=== PATIENT | female | born 1935 | race Caucasian/White ===

== ENCOUNTER 2017-08-16 19:25 | Inpatient (IN) | payer MEDICARE ==
[2017-08-16] MEDS ORDERED: Albuterol Sulfate 2.5 mg/3 ml Neb ONE ×2 (20:02→21:02)
[2017-08-16 20:31] LABS: #Eosinphils 0.1 thou/uL (0.0-0.7); #Lymphocytes 0.7 thou/uL (1.20-3.40); #Monocytes 0.6 thou/uL (0.11-0.59); #Neutrophils 4.4 thou/uL (1.40-6.50); %Basophils 0.4 % (0.0-1.0); %Eosinophils 2.5 % (0.0-10.0); %Lymphocytes 11.3 % (21.0-51.0); %Monocytes 9.7 % (0.0-10.0); Hematocrit 40.2 % (36.0-47.0); Mean Platelet Volume 7.9 fL (7.4-10.4); Red Blood Cell (RBC) Count 4.11 mill/uL (4.20-5.40); White Blood Cell (WBC) Count 5.8 thou/uL (4.8-10.8)
[2017-08-16] MEDS ORDERED: Water For Inject, Bacteriostat 30 ML ONE (20:34)
[2017-08-16] MEDS ORDERED: methylPREDNISolone Sod Succ/PF 125 MG/2 ML VIAL ONE (20:34)
--- NOTE | 2017-08-16 20:36 | RAD ---
CHEST ONE VIEW PORTABLE: 08/16/17 HISTORY: 81-year-old female with cough and shortness of breath. COMPARISON: 12/01/16 FINDINGS: There is considerable rotation to the left. There is marked cardiomegaly with some bilateral vascula r congestion and probable small pleural effusions evidence for minimal congestive heart failure. Lar ge body habitus lowers the sensitivity of this study, particularly in the retrocardiac region. IMPRESSION: Cardiomegaly with vascular congestion and probable small pleural effusions, evidence for congestive heart failure. Treatment and short term followup for clearing or stability is suggested. POS: [facility]
[2017-08-16 20:44] LABS: PTT 37.4 SEC (22.9-36.1); Prothrombin Time 27.5 SEC (12.0-14.7)
[2017-08-16 20:52] LABS: ALT (SGPT) 10 U/L (8-55); AST (SGOT) 16 U/L (5-34); Alkaline Phosphatase 91 U/L (40-150); Anion Gap 15 mmol/L (10-20); BUN (Urea Nitrogen) 49 mg/dL (9.8-20.1); Bilirubin, Total 0.5 mg/dL (0.2-1.2); CK (CPK) 60 U/L (29-168); Calc. Creatinine Clearance 0 mL/min (70-130); Calcium 9.8 mg/dL (7.8-10.44); Carbon Dioxide 30 mmol/L (23-31); Chloride 98 mmol/L (98-107); Estimated GFR-MDRD 25; Globulin 3.2 g/dL (2.4-3.5); Protein, Total 6.5 g/dL (6.0-8.3)
[2017-08-16 20:56] LABS: Troponin I Less than 0.010 ng/mL (< 0.028)
[2017-08-16] MEDS ORDERED: Furosemide 40 MG/4 ML VIAL ONE (21:25)
[2017-08-16] MEDS ORDERED: Furosemide 20 MG/2 ML VIAL ONE (21:25)
--- NOTE | 2017-08-16 21:25 | PDOC.EVN ---
Event Note - Event Note Event Note: [id number] h&p dictated 1. Acute CHF exacerbation 2. H/O DVT 3. HTN 4. CKD stage 304 5. Chronic respiraoty failure + H/O FAUSTINO Plan: see orders
[2017-08-16 21:38] LABS: Bilirubin Negative (Negative); Blood, Urine Small (Negative); Glucose, Urine (Dipstick) Negative (Negative); Ketone, Urine Negative (Negative); Nitrite Positive (Negative); Protein, Urine (Dipstick) 100 mg/dL (Neg-Trace); Urobilinogen 0.2 mg/dL (0.2-1.0)
[2017-08-16 21:40] LABS: Bacteria/HPF 4+ HPF (None Seen); Squamous Epithelial 0-3 HPF (0-3)
[2017-08-16 21:41] LABS: Hyaline Casts/LPF 4-6 HYALINE CAST LPF (0-3 Hyaline)
[2017-08-16 21:55] LABS: Mode BIPAP; Modified Allen's Test POSITIVE; Pressure Support 10 cmH2O; Sodium 137 mmol/L (135-148); Vent NO
[2017-08-16] MEDS ORDERED: Acetaminophen 500 MG TAB ONE (22:06)
[2017-08-16] MEDS ORDERED: traMADol HCl 50 MG TAB ONE (22:06)
[2017-08-16] MEDS ORDERED: Acetaminophen 325 MG TAB ONE (22:09)
[2017-08-16] MEDS ORDERED: HYDROcodone/Acetaminophen 7.5/325 mg Tablet PO PRN (22:11)
[2017-08-16] MEDS ORDERED: Oxybutynin 5 MG TAB PO PRN (22:11)
[2017-08-16 23:46] LABS: Troponin I 0.027 ng/mL (< 0.028)
[2017-08-17] MEDS: Furosemide 100 MG in Sodium Chloride 0.9% 90 ML IVPB SCH ×2 (00:15→11:03)
[2017-08-17 05:13] LABS: #Lymphocytes 0.4 thou/uL (1.20-3.40); #Monocytes 0.1 thou/uL (0.11-0.59); #Neutrophils 4.6 thou/uL (1.40-6.50); %Eosinophils 0.6 % (0.0-10.0); %Monocytes 1.2 % (0.0-10.0); Hematocrit 39.4 % (36.0-47.0); Mean Platelet Volume 7.9 fL (7.4-10.4); Red Blood Cell (RBC) Count 4.03 mill/uL (4.20-5.40); White Blood Cell (WBC) Count 5.1 thou/uL (4.8-10.8)
[2017-08-17 05:23] LABS: Anion Gap 14 mmol/L (10-20); BUN (Urea Nitrogen) 47 mg/dL (9.8-20.1); Calc. Creatinine Clearance 58 mL/min (70-130); Calcium 9.9 mg/dL (7.8-10.44); Carbon Dioxide 28 mmol/L (23-31); Chloride 99 mmol/L (98-107); Estimated GFR-MDRD 26
[2017-08-17 05:28] LABS: Troponin I 0.013 ng/mL (< 0.028)
--- NOTE | 2017-08-17 06:44 | HP ---
CHIEF COMPLAINT: Diffuse lower extremity swelling and abdominal swelling and dyspnea. HISTORY OF PRESENT ILLNESS: Patient is an 81-year-old female with past medical history of hypertens ion, congestive heart failure, deep venous thrombosis, chronic kidney disease stage 3-4, urinary tra ct infections and history of non-Hodgkin lymphoma, came to the hospital because of bilateral lower e xtremity swelling and lower abdominal swelling and dyspnea. [facility] for past one month. The patient started gaining more weight in the last one month, gained approximately 20 pounds. The patient started having more lower extremity swelling. Patient always has has chronic lymphedema in the lower extremity, but the swelling more pronounced and increased up to the lower abdominal wall. Also, patient was having dyspnea on lying flat. Denies any chest pio n, denies any palpations. Complains of wheezing. Denies any cough, denies sputum production, denie s nausea, denies vomiting, denies any diarrhea. PAST MEDICAL HISTORY: As per HPI. PAST SURGICAL HISTORY: Cataract surgery, cholecystectomy and knee surgery. ALLERGIES: PENICILLIN. MEDICATIONS: Reviewed. FAMILY HISTORY: Denies any heart problems. SOCIAL HISTORY: Denies smoking, denies alcohol, denies any drugs. REVIEW OF SYSTEMS: Constitutional: Denies any fever, denies any chills. Eyes: Denies any vision problems. Ears: Denies any hearing loss. Neck: Denies any neck pain. Cardiovascular System: De nies any chest pain, denies palpitations. Respiratory System: Positive for dyspnea. Gastrointesti nal: Positive for lower abdominal wall edema, positive for lower extremity edema. Cranial Nervous System: Denies syncope. Psychiatric: Denies depression or anxiety. Integumentary: Denies any ra sh. Musculoskeletal: Positive for bilateral lower extremity edema. All other review of systems ar e reviewed and are negative. PHYSICAL EXAMINATION: CONSTITUTIONAL/VITAL SIGNS: At the time of H\T\P performed, blood pressure is 130/70, afebrile, res piratory rate 18 and pulse ox 96% on 2 liters. GENERAL: The patient appears tired. HEENT: Anterior nares patent. Nose normal. Ears normal. Teeth intact. Tongue is moist. NECK: Supple. No JVD. CARDIOVASCULAR SYSTEM: S1 and S2 present. Regular rate and rhythm. No wheeze, no murmurs, no rubs , no gallops. RESPIRATORY SYSTEM: Positive for wheezing. Positive for rales. Positive for crackles. Diminished at the bases. GASTROINTESTINAL: Abdomen is soft and distended. Positive for lower abdominal wall edema. MUSCULOSKELETAL: Bilateral lower extremities, 3+ pitting edema present. INTEGUMENTARY: Chronic skin changes seen. PSYCH: Mood is appropriate at this time. CRANIAL NERVOUS SYSTEM: Cranial nerve is intact. Follows command. Strength is intact and sensory is intact. LABORATORY DATA: At the time of H\T\P performed, white count 5.8, hemoglobin 12.3 and platelet coun t is 268. PT 27.5, INR 2.5. BMP shows sodium 139, potassium 4.2, chloride 98, CO2 of 30, BUN 14, c reatinine 1.92. BNP 268 and albumin 3.3. Chest x-ray, positive for pulmonary edema. ASSESSMENT AND PLAN: The patient is an 81-year-old female. 1. Acute on chronic congestive heart failure. Plan to consult Cardiology to evaluate the patient. Plan to check 2D echo. Plan to start the patient on IV Lasix drip. Plan to give 60 mg of IV Lasix at this time and we will follow the patient closely. 2. Chronic kidney disease stage 3-4. Creatinine close to the patient's baseline. We will monitor creatinine closely. We will plan to consult Nephrology to evaluate the patient. 3. History of obstructive sleep apnea plus chronic respiratory failure. Continue oxygen nasal tracy kenneth. Plan to start the patient on home BiPAP settings and we will monitor respiratory status closel y. We will admit patient to the IMU for close monitoring. 4. History of deep venous thrombosis. Continue Coumadin, INR therapeutic. 5. History of hypertension. Monitor blood pressure. Continue home blood pressure medications. The case was discussed in detail with the patient. Patient is FULL CODE.
[2017-08-17] MEDS ORDERED: Potassium Chloride 20 MEQ TAB PO SCH (08:00)
[2017-08-17] MEDS ORDERED: FLUoxetine HCl 20 MG CAP PO SCH (09:00)
[2017-08-17] MEDS: Ferrous Sulfate 325 MG TAB PO SCH ×2 (09:07→16:40)
[2017-08-17] MEDS: Ascorbic Acid 500 mg Chewable Tablet PO SCH (09:07)
[2017-08-17] MEDS: Allopurinol 100 MG TAB PO SCH (09:07)
[2017-08-17] MEDS: Fluticasone Propionate Nasal Spray 16 gm Bottle NASAL SCH (11:03)
--- NOTE | 2017-08-17 11:55 | PDOC.PN ---
- Subjective Encounter Start Date: 08/17/17 Encounter Start Time: 10:40 Subjective: is coming off bipap, breathing better -: no chest pain - Objective MAR Reviewed: Yes Vital Signs & Weight: Vital Signs (12 hours) Temp Pulse Resp BP BP Pulse Ox 08/17/17 11:05 96.9 F L 87 18 135/59 L 98 08/17/17 08:56 97 08/17/17 08:00 96.9 F L 87 18 96 08/17/17 07:09 98.6 F 81 13 107/44 L 100 08/17/17 06:57 82 08/17/17 04:00 97.8 F 81 14 116/50 L 99 08/17/17 02:42 71 08/17/17 00:15 97.2 F L 72 15 109/42 L 100 08/16/17 23:57 73 96 Weight Weight 338 lb 9.6 oz I&O: 08/16/17 08/17/17 08/18/17 06:59 06:59 06:59 Intake Total 215 Output Total 950 Balance -735 Result Diagrams: 08/17/17 04:52 08/17/17 04:52 Phys Exam - Physical Examination HEENT: PERRLA, moist MMs Neck: supple jvd+ Respiratory: no wheezing rales++ Cardiovascular: RRR, no significant murmur Gastrointestinal: soft, positive bowel sounds abd wall edema+++ Musculoskeletal: pulses present, edema present Neurological: non-focal, moves all 4 limbs Psychiatric: A&O x 3 Dx/Plan (1) Volume overload Code(s): E87.70 - FLUID OVERLOAD, UNSPECIFIED Status: Acute (2) Acute exacerbation of CHF (congestive heart failure) Code(s): I50.9 - HEART FAILURE, UNSPECIFIED Status: Acute Qualifiers: Congestive heart failure type: unspecified congestive heart failure type Qualified Code(s): I50.9 - Heart failure, unspecified (3) UTI (urinary tract infection) Status: Acute Qualifiers: Urinary tract infection type: acute cystitis Hematuria presence: without hematuria Qualified Code(s): N30.00 - Acute cystitis without hematuria (4) Anasarca Code(s): R60.1 - GENERALIZED EDEMA Status: Acute (5) Chronic acquired lymphedema Code(s): I89.0 - LYMPHEDEMA, NOT ELSEWHERE CLASSIFIED Status: Chronic (6) Dyslipidemia Code(s): E78.5 - HYPERLIPIDEMIA, UNSPECIFIED Status: Chronic (7) History of deep venous thrombosis or pulmonary embolus Code(s): YRP5891 - Status: Chronic (8) Hypertension Code(s): I10 - ESSENTIAL (PRIMARY) HYPERTENSION Status: Chronic Qualifiers: Hypertension type: essential hypertension (9) Morbid obesity Code(s): E66.01 - MORBID (SEVERE) OBESITY DUE TO EXCESS CALORIES Status: Chronic (10) FAUSTINO (obstructive sleep apnea) Code(s): G47.33 - OBSTRUCTIVE SLEEP APNEA (ADULT) (PEDIATRIC) Status: Chronic (11) Physical deconditioning Code(s): R53.81 - OTHER MALAISE Status: Chronic - Plan is on lasix drip -: renal consultation, PT to mobilize as tolerated -: pt has developed severe anasarca over 4 weeks -: has chronic lymphedema in legs usually and does wrapping -: d/w daughter at bedside, watch for renal function, creatinine around 1.8 * . Review of Systems - Medications/Allergies Allergies/Adverse Reactions: Allergies Allergy/AdvReac Type Severity Reaction Status Date / Time Penicillins Allergy Unknown Verified 12/02/16 01:41 Medications: Current Medications Hydrocodone Bitart/Acetaminophen ([place] 7.5/325) 1 tab PO Q6H PRN PRN Reason: Pain 7-10 Allopurinol (Zyloprim) 100 mg PO DAILY [facility] Last Admin: 08/17/17 09:07 Dose: 100 mg Amlodipine Besylate (Norvasc) 5 mg PO QPM [facility] Ascorbic Acid (Vitamin C) 1,000 mg PO DAILY [facility] Last Admin: 08/17/17 09:07 Dose: 1,000 mg Duloxetine HCl (Cymbalta) 30 mg PO DAILY [facility] Last Admin: 08/17/17 09:07 Dose: 30 mg Ferrous Sulfate (Feosol) 325 mg PO BID-[facility] Last Admin: 08/17/17 09:07 Dose: 325 mg Fluoxetine HCl (Prozac) 60 mg PO DAILY [facility] Last Admin: 08/17/17 09:06 Dose: Not Given Fluticasone Propionate (Flonase Nasal [place]) 0 gm NASAL DAILY [facility] Last Admin: 08/17/17 11:03 Dose: 1 spr Furosemide 100 mg/ Sodium (Chloride) 100 mls @ 5 mls/hr IVPB INF [facility] PRN Reason: 5 MG/HR Last Admin: 08/17/17 11:03 Dose: 100 mls Metaxalone (Skelaxin) 800 mg PO TID PRN PRN Reason: Muscle Spasm Methyldopa (Aldomet) 250 mg PO BID [facility] Last Admin: 08/17/17 09:08 Dose: 250 mg Oxybutynin Chloride (Ditropan) 5 mg PO TID PRN PRN Reason: Bladder Spasms Pantoprazole Sodium (Protonix) 40 mg PO DAILY [facility] Last Admin: 08/17/17 09:07 Dose: 40 mg Potassium Chloride (K-Dur) 20 meq PO QAM-WM [facility] Last Admin: 08/17/17 09:07 Dose: 20 meq Terazosin HCl (Hytrin) 5 mg PO [facility]
[2017-08-17] MEDS: traMADol HCl 50 MG TAB PO PRN ×2 (15:04→21:50)
[2017-08-17] MEDS: Estradiol 0.01% Vaginal Cream 42.5 gm Tube VAG SCH (16:01)
--- NOTE | 2017-08-17 16:08 | CON ---
DATE OF CONSULTATION: 08/17/2017 REASON FOR CONSULTATION: Edema and elevated creatinine. HISTORY OF PRESENTING ILLNESS: This is a very pleasant 81-year-old female who presented to the hosp ital last night for generalized swelling with a 20 pound weight gain. The patient has a history of hydronephrosis and baseline creatinine has around 1.5-1.8. The patient can give no further detailed history. PAST MEDICAL HISTORY: Significant for non-Hodgkin's lymphoma, history of pulmonary embolism, orthos tasis, hypertension, lymphedema, UTI, bilateral cataracts, cholecystectomy, atrophic kidney. SOCIAL HISTORY: No alcohol or drug use. HOME MEDICATIONS: Reviewed. HOSPITAL MEDICATIONS: Reviewed. ALLERGIES: Reviewed. REVIEW OF SYSTEMS: Fifteen-point review of systems was performed and negative except positives note d above. GENERAL: Weakness. HEAD: Headache. NECK: No swelling or lumps. NOSE: No epistaxis or discharge. EYES: No diplopia or pain. RESPIRATORY: Dyspnea. CARDIOVASCULAR: Chest pain. GASTROINTESTINAL: Nausea. /TAKE DOWN INSPECTOR: Hematuria. MUSCULOSKELETAL: No joint pain. NEUROPSYCHIATIC SYSTEMS: No suicidal ideation. No ideation. SKIN: Denies any rash or ulcer. CONSTITUTIONAL: No fever or chills. PHYSICAL EXAMINATION: GENERAL: Patient is awake, alert. VITAL SIGNS: Afebrile, pulse 86, breathing at 16, blood pressure 135/59. GENERAL APPEARANCE AND MENTAL STATUS: Fair. HEAD/NECK: Normocephalic. Atraumatic. EYES: EOMI. No deformity. EARS: Clear. No ulcers. NOSE: Intact. No lesions. MOUTH: Clear. No discharge. THROAT: Clear. No exudate. LUNGS: Clear. No crackles. CARDIAC: S1, S2. No rub. ABDOMEN: Benign. BS+. GENITALIA/RECTUM: Schroeder absent. BACK/EXTREMITIES: 4+ edema and lymphedema. NEUROLOGICAL: Alert and motor intact. SKIN: Rash- Bruise. LYMPHATICS: Edema- Ulcer. LABORATORY DATA: Hemoglobin 11.8, creatinine 1.8. ASSESSMENT AND RECOMMENDATIONS: 1. 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 Continue Lasix. 2. Hypertension, stable. 3. Anemia, stable. 4. Congestive heart failure. Overall, prognosis is extremely poor. 5. Proteinuria. We will measure random urine protein-creatinine ratio. 6. History of hydronephrosis. The patient's CAT scan is pending. I would recommend urology evalua tion.
--- NOTE | 2017-08-17 16:35 | CON ---
DATE OF CONSULTATION: 08/17/2017 SUBJECTIVE: Mr. Trinidad is a pleasant 81-year-old female, who is essentially bedridden in the [facility] environment/correction. She is lifted out of bed in [place] Irma [place] [facility] [place] has a history of diastolic dysfunction, chronic kidney disease. She presented with shortness of breath and was noninvasively ventilated. She has BiPAP at the correction, which she sleeps with. She says she feels better and she fell last night. Her intake and output was negative 615. She has seen Dr. Alejo and Dr. Sebastian here in the past. PAST MEDICAL HISTORY: Remarkable for cholecystectomy, knee surgery, cataract surgery, and chronic o besity. SOCIAL HISTORY: She is nonsmoker, nondrinker. ALLERGIES: She reports PENICILLIN allergy. REVIEW OF SYSTEMS: Otherwise, negative. PHYSICAL EXAMINATION: VITAL SIGNS: She is afebrile, heart rate 87, respiratory rate 18, oximetry is 98 on 2 liters, blood pressure 135/59. HEENT: Pupils are equal. Sclerae is anicteric. NECK: Supple. LUNGS: Clear anteriorly. HEART: Regular rhythm. S1 and S2 are normal. ABDOMEN: Soft and nontender. EXTREMITIES: Without asymmetry. LABORATORY AND X-RAY FINDINGS: Chest radiographs showed pulmonary edema, bilateral effusions. White count 5.1, hemoglobin 11.8, platelets 254,000. Potassium is 4.1, BUN is 47, creatinine 1.85. Blood gas yesterday 7.35, CO2 58, pO2 78. IMPRESSION: Volume overload secondary to combination of diastolic dysfunction, chronic kidney disea se. We will continue with her BiPAP from home to sleep while she is here. Dr. Alejo and Dr. Sebastian will be notified of her admission.
--- NOTE | 2017-08-17 18:05 | CT ---
ABDOMEN AND PELVIC CT SCAN WITHOUT IV CONTRAST: History: 81-year-old female with generalized anasarca and right hydronephrosis and prior hematoma. Comparison: 12-09-16 FINDINGS: There is very markedly severe subcutaneous anasarca changes of the chest, abdomen, and pelvis region s which has developed since the prior study. Bilateral pleural effusions and bibasilar parenchymal changes, worse on the left base, probably rela mario to atelectasis. Cardiomegaly with moderate sized pericardial effusion which measures up to 2.5 c m in thickness posteriorly, slightly larger than on the prior study. The bilateral basilar pleural a nd parenchymal changes have progressed as well from the prior study. Status post cholecystectomy. Th e liver appears unremarkable. There is a small hiatal hernia. Pancreas and spleen appear unremarkabl e. There is a very small residual left kidney. The previously noted left sided hydronephrosis has re solved. There is evidence for right renal hydronephrosis with a dilated right ureter seen proximally , slightly less dilated than on the prior study at which time there was a right ureteral stent in pl jessy. There is some opaque material within the right upper renal collecting system which is fairly de nse, possibly some concentrated contrast. I would favor that over calcifications since there were no renal calculi seen at the time of the prior study. There is some minimal ascites around the liver a nd also in the pelvis. Sigmoid colon diverticulosis without acute diverticulitis. No abscess or jessica opathy or abnormal fluid collection. IMPRESSION: Very large body habitus with very severe diffuse subcutaneous anasarca. Progressive bilateral pleura l and parenchymal changes consistent with pleural effusions and some bilateral atelectasis, worse on the left side. Slightly increasing pericardial effusion. Minimal ascites. Small hiatal hernia. Stat us post cholecystectomy without ductal dilatation. Very small residual left kidney without significa nt hydronephrosis or at least improved from the prior study. Some residual but slightly improved rig ht renal hydronephrosis with some abnormal opacity within the right renal upper collecting system, p resumably some concentrated contrast. Marked chronic changes involving the left hip. Sigmoid colon d iverticulosis without diverticulitis. Exam is limited technically because of large body habitus and some motion. POS: [facility]
--- NOTE | 2017-08-17 19:51 | ULT ---
BILATERAL LOWER EXTREMIT VENOUS DUPLEX ULTRASOUND INCLUDING COLOR AND SPECTRAL DOPPLER IMAGING: History: Diffuse edema and pain. Comparison: 12-09-16 FINDINGS: Exam performed from groin to ankle including visualized greater saphenous, common femoral, superfici al femoral, profunda femoral, popliteal, trifurcation, and posterior tibial vein regions. Exam was s omewhat limited technically because of body habitus as well as considerable patient movement with co mpression and positioning. There was phasic flow with normal compressibility noted at all levels. No intraluminal thrombus. IMPRESSION: No evidence for deep venous thrombosis. POS: [facility]
[2017-08-17] MEDS ORDERED: Terazosin HCl 5 MG CAP PO SCH (21:00)
[2017-08-17] MEDS ORDERED: Amlodipine 5 MG TAB PO SCH (21:00)
[2017-08-17] MEDS: Gabapentin 100 MG CAP PO SCH (21:01)
[2017-08-17] MEDS: Docusate 100 MG CAP PO SCH (21:03)
[2017-08-17] MEDS ORDERED: Acetaminophen 500 MG TAB PO PRN (21:46)
[2017-08-17] MEDS ORDERED: Acetaminophen 500 MG TAB PO SCH (23:00)
[2017-08-18 07:40] LABS: #Lymphocytes 0.9 thou/uL (1.20-3.40); #Monocytes 0.7 thou/uL (0.11-0.59); #Neutrophils 4.8 thou/uL (1.40-6.50); %Basophils 0.7 % (0.0-1.0); %Eosinophils 0.6 % (0.0-10.0); %Lymphocytes 14.2 % (21.0-51.0); %Monocytes 10.7 % (0.0-10.0); Hematocrit 38.3 % (36.0-47.0); Mean Platelet Volume 7.3 fL (7.4-10.4); Red Blood Cell (RBC) Count 3.97 mill/uL (4.20-5.40); White Blood Cell (WBC) Count 6.5 thou/uL (4.8-10.8)
[2017-08-18 08:01] LABS: Anion Gap 11 mmol/L (10-20); BUN (Urea Nitrogen) 51 mg/dL (9.8-20.1); Calc. Creatinine Clearance 60 mL/min (70-130); Calcium 9.5 mg/dL (7.8-10.44); Carbon Dioxide 33 mmol/L (23-31); Chloride 100 mmol/L (98-107); Estimated GFR-MDRD 27
[2017-08-18] MEDS: Ascorbic Acid 500 mg Chewable Tablet PO SCH (09:42)
[2017-08-18] MEDS: Gabapentin 100 MG CAP PO SCH ×2 (09:42→21:38)
[2017-08-18] MEDS: Ferrous Sulfate 325 MG TAB PO SCH (09:42)
[2017-08-18] MEDS: Docusate 100 MG CAP PO SCH ×2 (09:42→21:38)
[2017-08-18] MEDS: Allopurinol 100 MG TAB PO SCH (09:43)
[2017-08-18] MEDS: Fluticasone Propionate Nasal Spray 16 gm Bottle NASAL SCH (09:44)
[2017-08-18] MEDS: Furosemide 100 MG in Sodium Chloride 0.9% 90 ML IVPB SCH (09:50)
[2017-08-18] MEDS: traMADol HCl 50 MG TAB PO PRN ×2 (10:18→21:38)
[2017-08-18] MEDS: Acetaminophen 500 MG TAB PO PRN ×2 (12:25→21:38)
--- NOTE | 2017-08-18 13:38 | PRG ---
DATE OF SERVICE: 08/18/2017 She says she is feeling better. She has no new complaints. PHYSICAL EXAMINATION: VITAL SIGNS: She is afebrile, heart rate 83, blood pressure 149/68, respiratory rate 20, oximetry i s 94 on 2 liters. There are apparently some problems with her CPAP nasal pillows, but her daughter plans to go get so me new nasal pillows today from [facility]. Her intake and output is negative 1635. LUNGS: Clear anteriorly. HEART: Regular rhythm. LABORATORY: White count 6.5, hemoglobin 11.4, platelets 276, Sodium 140, potassium 3.7, chloride 10 0, bicarbonate 32, BUN 51, creatinine 1.79. IMPRESSION: 1. Diastolic dysfunction on top of chronic kidney disease. 2. Deconditioning. She is basically bedridden. 3. Morbid obesity. 4. Sleep apnea on BiPAP. 5. Chronic venous stasis. PLAN: Continue supportive care.
[2017-08-18] MEDS ORDERED: Metolazone 5 MG TAB PO SCH (14:45)
--- NOTE | 2017-08-18 15:06 | PDOC.PN ---
- Subjective Encounter Start Date: 08/18/17 Encounter Start Time: 11:00 Subjective: awake, sob is better -: still has a lot of edema all over - Objective MAR Reviewed: Yes Vital Signs & Weight: Vital Signs (12 hours) Temp Pulse Resp BP BP BP Pulse Ox 08/18/17 11:00 98.8 F 83 20 139/53 L 94 L 08/18/17 09:43 149/68 H 08/18/17 08:00 99.3 F 81 24 H 97 08/18/17 07:15 99.3 F 81 24 H 124/56 L 97 08/18/17 06:48 97 08/18/17 06:47 83 08/18/17 04:11 92 L 08/18/17 04:08 98.6 F 85 16 129/52 L 92 L 08/18/17 04:00 92 L Weight Admit Weight 338 lb 9.6 oz Weight 338 lb 9.6 oz I&O: 08/17/17 08/18/17 08/19/17 06:59 06:59 06:59 Intake Total 1715 240 Output Total 3350 300 Balance -1635 -60 Result Diagrams: 08/18/17 07:32 08/18/17 07:32 Phys Exam - Physical Examination anasarca HEENT: PERRLA, moist MMs Neck: no JVD, supple Respiratory: no wheezing, no rales Cardiovascular: RRR, no significant murmur Gastrointestinal: soft, non-tender, positive bowel sounds Musculoskeletal: pulses present, edema present Neurological: non-focal, moves all 4 limbs Psychiatric: A&O x 3 Dx/Plan (1) Volume overload Code(s): E87.70 - FLUID OVERLOAD, UNSPECIFIED Status: Acute (2) Acute exacerbation of CHF (congestive heart failure) Code(s): I50.9 - HEART FAILURE, UNSPECIFIED Status: Acute Qualifiers: Congestive heart failure type: unspecified congestive heart failure type Qualified Code(s): I50.9 - Heart failure, unspecified (3) UTI (urinary tract infection) Status: Acute Qualifiers: Urinary tract infection type: acute cystitis Hematuria presence: without hematuria Qualified Code(s): N30.00 - Acute cystitis without hematuria (4) Anasarca Code(s): R60.1 - GENERALIZED EDEMA Status: Acute (5) Chronic acquired lymphedema Code(s): I89.0 - LYMPHEDEMA, NOT ELSEWHERE CLASSIFIED Status: Chronic (6) Dyslipidemia Code(s): E78.5 - HYPERLIPIDEMIA, UNSPECIFIED Status: Chronic (7) History of deep venous thrombosis or pulmonary embolus Code(s): [id number] - Status: Chronic (8) Hypertension Code(s): I10 - ESSENTIAL (PRIMARY) HYPERTENSION Status: Chronic Qualifiers: Hypertension type: essential hypertension (9) Morbid obesity Code(s): E66.01 - MORBID (SEVERE) OBESITY DUE TO EXCESS CALORIES Status: Chronic (10) FAUSTINO (obstructive sleep apnea) Code(s): G47.33 - OBSTRUCTIVE SLEEP APNEA (ADULT) (PEDIATRIC) Status: Chronic (11) Physical deconditioning Code(s): R53.81 - OTHER MALAISE Status: Chronic - Plan is on lasix drip -: renal function is holding -: has a lot of edema -: to wear compression device for her LE as before -: d/w daughter at bedside, prognosis guarded * . Review of Systems - Medications/Allergies Allergies/Adverse Reactions: Allergies Allergy/AdvReac Type Severity Reaction Status Date / Time Penicillins Allergy Unknown Verified 12/02/16 01:41 Medications: Current Medications Acetaminophen (Tylenol) 500 mg PO Q6H PRN PRN Reason: Headache/Fever or Pain Last Admin: 08/18/17 12:25 Dose: 500 mg Hydrocodone Bitart/Acetaminophen ([place] 7.5/325) 1 tab PO Q6H PRN PRN Reason: Pain 7-10 Allopurinol (Zyloprim) 100 mg PO DAILY [facility] Last Admin: 08/18/17 09:43 Dose: 100 mg Ascorbic Acid (Vitamin C) 1,000 mg PO DAILY [facility] Last Admin: 08/18/17 09:42 Dose: 1,000 mg Docusate Sodium (Colace) 100 mg PO BID [facility] Last Admin: 08/18/17 09:42 Dose: 100 mg Duloxetine HCl (Cymbalta) 30 mg PO DAILY [facility] Last Admin: 08/18/17 09:43 Dose: 30 mg Estradiol (Estrace 0.01% Vaginal Cream) 1 gm VAG Q2D [facility] Last Admin: 08/17/17 16:01 Dose: 1 gm Fluticasone Propionate (Flonase Nasal [place]) 0 gm NASAL DAILY [facility] Last Admin: 08/18/17 09:44 Dose: 2 spr Gabapentin (Neurontin) 100 mg PO BID [facility] Last Admin: 08/18/17 09:42 Dose: 100 mg Furosemide 100 mg/ Sodium (Chloride) 100 mls @ 5 mls/hr IVPB INF [facility] PRN Reason: 5 MG/HR Last Admin: 08/18/17 09:50 Dose: 100 mls Methyldopa (Aldomet) 250 mg PO BID [facility] Last Admin: 08/18/17 09:43 Dose: 250 mg Metolazone (Zaroxolyn) 5 mg PO NOW [facility] Stop: 08/18/17 16:45 Oxybutynin Chloride (Ditropan) 5 mg PO TID PRN PRN Reason: Bladder Spasms Pantoprazole Sodium (Protonix) 40 mg PO DAILY [facility] Last Admin: 08/18/17 09:42 Dose: 40 mg Sodium Chloride (Flush - Normal Saline) 10 ml IVF Q12HR [facility] Last Admin: 08/18/17 09:43 Dose: Not Given Sodium Chloride (Flush - Normal Saline) 10 ml IVF PRN PRN PRN Reason: Saline Flush Tramadol HCl (Ultram) 50 mg PO TID PRN PRN Reason: Pain Last Admin: 08/18/17 10:18 Dose: 50 mg
[2017-08-18 16:07] LABS: Prothrombin Time 27.6 SEC (12.0-14.7)
[2017-08-18] MEDS: Warfarin Sodium 2.5 MG TAB PO SCH (17:10)
--- NOTE | 2017-08-18 17:19 | CON ---
CARDIOLOGY CONSULTATION NOTE DATE OF CONSULTATION: 08/18/2017 REASON FOR CONSULTATION: Diastolic congestive heart failure and renal insufficiency. HISTORY OF PRESENT ILLNESS: Ms. Trinidad is a very pleasant 81-year-old woman. Patient has a histor y of diastolic congestive heart failure. The patient was admitted to the hospital with intractable edema and worsening shortness of breath. Ms. Trinidad has had severe peripheral edema for quite some time. Her ejection fraction on the echoc ardiogram has been normal. She also has some lymphedema recently; however, the weight has been dram atically increasing and she was sent here to the hospital after she is short of breath and wheezing. The patient otherwise has been very immobile. She is unable to really get up or walk around much. She is able to get up in the chair I think that is about the extent of the mobilization. Patient has gained in the last month over 20 pounds. She has no chest pain, but she has severe shortness of breath and wheezing. 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 PAST SURGICAL HISTORY: Cataract surgery and cholecystectomy. ALLERGIES: PENICILLIN. MEDICATIONS: Patient is on amlodipine 10 mg a day. She is on diuretics. She was on [place]. FAMILY HISTORY: Negative for heart disease at a young age. SOCIAL HISTORY: No smoking or alcohol. REVIEW OF SYSTEMS: Constitutional: Positive for weakness. Vision: No changes. Hearing: No lau ges. Pulmonary: Positive for shortness of breath. Cardiac: Positive for shortness of breath. No chest pain. Gastrointestinal: No nausea, vomiting or diarrhea. Skin: No rashes. Neurologic: N o unilateral weakness or numbness. Psychiatric: No unusual depression or anxiety. Extremities: S evere edema in all 4 extremities and really all throughout her body. PHYSICAL EXAMINATION: GENERAL: It is a pleasant morbidly obese 81-year-old woman. VITAL SIGNS: Height 5 feet 4 inches tall. Weighs 338 pounds. BMI is 58. EYES: Sclerae nonicteric. MOUTH: Mucous membranes moist. NECK: Supple. No lymphadenopathy. LUNGS: Positive for expiratory wheezing. CARDIOVASCULAR: Normal S1, normal S2. There is no murmur, rub or gallop. ABDOMEN: Obese and nontender. No hepatosplenomegaly. EXTREMITIES: There is severe edema in all 4 extremities. Extremities are warm. PERTINENT LABORATORY DATA: The creatinine is 1.79, estimated GFR is 27 and potassium is 3.7. BNP i s 1268. Hemoglobin is 11.4. IMAGING DATA: Echocardiogram, technically difficult study due to the morbid obesity, but the ejecti on fraction is normal. She appears to have mild to moderate aortic stenosis, severe left atrial dil atation and mild enlarged right ventricle, moderately elevated pulmonary artery pressure, small to m edium pericardial effusion without tamponade. ASSESSMENT: 1. Diastolic congestive heart failure tremendously volume overloaded. 2. Renal failure stage 3-4. 3. Morbid obesity. 4. The patient has hypertension. I think some of it is related to volume overload. 5. The patient is on Coumadin. We will need to review the indication. I think she had deep venous thrombosis in the past. 6. History of iron deficiency. At this time, her main problem appears to be diastolic heart failur e. PLAN: 1. Stop amlodipine and allow blood pressure to come up. 2. Agree with intravenous furosemide drip. 3. Give one dose of metolazone. 4. Elevate extremities to help mobilize edema. 5. Check iron levels. May need intravenous iron. 6. Need to resume the Coumadin dose. 7. We will follow with you. The patient clearly is severely volume overloaded.
--- NOTE | 2017-08-18 19:29 | PRG ---
DATE OF SERVICE: 08/18/2017 SUBJECTIVE: Patient was seen and examined at bedside and overnight events noted. Patient denies any shortness of breath or chest pain or palpitation. No history of nausea or vomiting or diarrhea or fever or chills or cramps. OBJECTIVE: GENERAL: This is an obese white female, on BiPAP. VITAL SIGNS: Temperature 98.7, pulse 84, respiratory 18, blood pressure 142/59. HEENT: Atraumatic, normocephalic, Oral mucosa is moist. NECK: Supple. CARDIOVASCULAR: S1, S2 heard. Rate and rhythm regular. RESPIRATORY: Crackles present GASTROINTESTINAL: Abdomen is soft. MUSCULOSKELETAL: 1+ edema. DERMATOLOGIC: No skin rash. NEUROLOGIC: Alert and awake and oriented X3. No focal neurologic deficits. Moving all the extremities. PSYCHIATRIC: Mood and affect normal. LABORATORY DATA: Potassium is 3.7. Creatinine is 1.7 from 1.8 yesterday. ASSESSMENT AND PLAN: 1. Acute kidney injury on chronic kidney disease stage IV. Renal function is getting better, close to her baseline, most likely from cardiorenal syndrome. Creatinine is getting better with the Lasix. Continue on Lasix and we will closely monitor for electrolytes and renal function. 2. Hypertension. Blood pressure seems to be stable. 3. Anemia. Monitor hemoglobin. 4. Cardiorenal syndrome. 5. Proteinuria. 6. Follow up with Cardiology. Continue current medication, currently on Lasix drip, closely monitor urine output. Follow up with Cardiology for optimization of cardiac medications. Plan discussed with the patient and daughter at the bedside. ANA
[2017-08-19 04:50] LABS: Anion Gap 12 mmol/L (10-20); BUN (Urea Nitrogen) 52 mg/dL (9.8-20.1); Calc. Creatinine Clearance 59 mL/min (70-130); Calcium 9.7 mg/dL (7.8-10.44); Carbon Dioxide 35 mmol/L (23-31); Chloride 99 mmol/L (98-107); Estimated GFR-MDRD 27; Iron 25 ug/dL (50-170)
[2017-08-19] MEDS: Furosemide 100 MG in Sodium Chloride 0.9% 90 ML IVPB SCH (06:21)
[2017-08-19] MEDS: Allopurinol 100 MG TAB PO SCH (08:56)
[2017-08-19] MEDS: Ascorbic Acid 500 mg Chewable Tablet PO SCH (08:56)
[2017-08-19] MEDS: Docusate 100 MG CAP PO SCH ×2 (08:57→22:06)
[2017-08-19] MEDS: Gabapentin 100 MG CAP PO SCH ×2 (08:57→22:06)
[2017-08-19] MEDS: Fluticasone Propionate Nasal Spray 16 gm Bottle NASAL SCH (08:58)
[2017-08-19] MEDS: Acetaminophen 500 MG TAB PO PRN ×3 (09:00→22:54)
[2017-08-19] MEDS: traMADol HCl 50 MG TAB PO PRN ×3 (09:01→22:53)
--- NOTE | 2017-08-19 09:28 | PRG ---
DATE OF SERVICE: 08/19/2017 SUBJECTIVE: Ms. Trinidad is doing quite well. She did diurese well, she put out 4.6 liters yesterda y, she is -3.4 liters. She is down 5 liters since she came in. She is breathing somewhat better. PHYSICAL EXAMINATION: VITAL SIGNS: Blood pressure 139/65, pulse 86 regular. LUNGS: Clear. CARDIAC: Normal S1, S2. EXTREMITIES: She still has severe edema. ASSESSMENT: 1. Diastolic congestive heart failure, improving. 2. Renal failure is stable. Renal function has not worsened despite diuresis, creatinine is 1.82. PLAN: 1. Add another dose of Zaroxolyn tonight at 6. 2. Continue furosemide. 3. Needs to get additional potassium. 4. Hold all blood pressure medicines to allow good blood pressure and to perfuse the kidneys while she is being diuresed.
--- NOTE | 2017-08-19 09:41 | PRG ---
Patient Name: MARC KAYE Date of service: 08/19/2017 Subjective: Patient was seen and examined at bedside and overnight events noted. Patient denies any shortness of breath or chest pain or palpitation. No history of nausea or vomiting or diarrhea or fever or chills or cramps. Objective: General: This is a well-built elderly female in no apparent distress, she is feeling much better per her daughter at the bedside. Vital signs: Temperature 98.7, pulse 87, respiratory rate 18, blood pressure 113/65. HEENT: Atraumatic, normocephalic. Oral mucosa is moist. Neck: Supple. Cardiovascular: S1 S2 heard. Rate and rhythm regular. Respiratory: Clear to auscultation. Gastrointestinal: Abdomen is soft. Musculoskeletal: No tenderness. No edema. Dermatologic: No skin rash. Neurologic: Alert and awake and oriented X3. No focal neurologic deficits. Moving all the extremi ties. Psychiatric: Mood and affect normal. LABORATORY DATA: Potassium is 3.1, BUN 52, creatinine is 1.8. ASSESSMENT AND PLAN: 1. Acute kidney injury on chronic kidney disease stage 4. Renal function is stable, trending up no w, would recommend reducing the diuretic dose. She did have 7 liters negative. I would recommend I V intermittent Lasix 40-80 twice a day. Patient is also on metolazone. Continue close monitoring. Continue potassium and magnesium closely. 2. Hypokalemia secondary to diuretics. Replace and monitor closely. 3. Hypertension, stable. 4. Cardiorenal syndrome. Follow with Cardiology. 5. Recommend changing or reducing the diuretic dose, replace potassium and monitor potassium and m agnesium closely. We will follow.
[2017-08-19] MEDS ORDERED: Potassium Chloride 20 MEQ TAB PO SCH (10:00)
--- NOTE | 2017-08-19 12:26 | PDOC.PN ---
- Subjective Encounter Start Date: 08/19/17 Encounter Start Time: 11:50 Subjective: feels better -: has started to wrinkle with swelling going down - Objective MAR Reviewed: Yes Vital Signs & Weight: Vital Signs (12 hours) Temp Pulse Resp BP BP Pulse Ox 08/19/17 11:22 98.2 F 87 20 152/71 H 93 L 08/19/17 07:19 98.7 F 87 20 139/65 92 L 08/19/17 04:02 92 L 08/19/17 03:59 98.4 F 83 14 115/44 L 92 L Weight Admit Weight 338 lb 9.6 oz Weight 336 lb 8 oz I&O: 08/18/17 08/19/17 08/20/17 06:59 06:59 06:59 Intake Total 1715 1230 Output Total 3793 2966 Balance -3492 -9234 Result Diagrams: 08/18/17 07:32 08/19/17 04:11 Phys Exam - Physical Examination HEENT: PERRLA, moist MMs Neck: no JVD, supple Respiratory: no wheezing rales+ Cardiovascular: RRR, no significant murmur Gastrointestinal: soft, non-tender, positive bowel sounds Musculoskeletal: pulses present, edema present Neurological: non-focal, moves all 4 limbs Psychiatric: A&O x 3 Dx/Plan (1) Volume overload Code(s): E87.70 - FLUID OVERLOAD, UNSPECIFIED Status: Acute (2) Acute exacerbation of CHF (congestive heart failure) Code(s): I50.9 - HEART FAILURE, UNSPECIFIED Status: Acute Qualifiers: Congestive heart failure type: diastolic Qualified Code(s): I50.33 - Acute on chronic diastolic (congestive) heart failure (3) UTI (urinary tract infection) Status: Acute Qualifiers: Urinary tract infection type: acute cystitis Hematuria presence: without hematuria Qualified Code(s): N30.00 - Acute cystitis without hematuria (4) Anasarca Code(s): R60.1 - GENERALIZED EDEMA Status: Acute (5) Chronic acquired lymphedema Code(s): I89.0 - LYMPHEDEMA, NOT ELSEWHERE CLASSIFIED Status: Chronic (6) Dyslipidemia Code(s): E78.5 - HYPERLIPIDEMIA, UNSPECIFIED Status: Chronic (7) History of deep venous thrombosis or pulmonary embolus Code(s): TIU7271 - Status: Chronic (8) Hypertension Code(s): I10 - ESSENTIAL (PRIMARY) HYPERTENSION Status: Chronic Qualifiers: Hypertension type: essential hypertension (9) Morbid obesity Code(s): E66.01 - MORBID (SEVERE) OBESITY DUE TO EXCESS CALORIES Status: Chronic (10) FAUSTINO (obstructive sleep apnea) Code(s): G47.33 - OBSTRUCTIVE SLEEP APNEA (ADULT) (PEDIATRIC) Status: Chronic (11) Physical deconditioning Code(s): R53.81 - OTHER MALAISE Status: Chronic - Plan is on lasix drip with metolazone -: replace potassium -: PT to mobilize as tolerated -: ceftriaxone for uti -: is on coumadin for h/o dvt * . Review of Systems - Medications/Allergies Allergies/Adverse Reactions: Allergies Allergy/AdvReac Type Severity Reaction Status Date / Time Penicillins Allergy Unknown Verified 12/02/16 01:41 Medications: Current Medications Acetaminophen (Tylenol) 500 mg PO Q6H PRN PRN Reason: Headache/Fever or Pain Last Admin: 08/19/17 09:00 Dose: 500 mg Hydrocodone Bitart/Acetaminophen ([place] 7.5/325) 1 tab PO Q6H PRN PRN Reason: Pain 7-10 Allopurinol (Zyloprim) 100 mg PO DAILY [facility] Last Admin: 08/19/17 08:56 Dose: 100 mg Ascorbic Acid (Vitamin C) 1,000 mg PO DAILY [facility] Last Admin: 08/19/17 08:56 Dose: 1,000 mg Docusate Sodium (Colace) 100 mg PO BID [facility] Last Admin: 08/19/17 08:57 Dose: 100 mg Duloxetine HCl (Cymbalta) 30 mg PO DAILY [facility] Last Admin: 08/19/17 09:00 Dose: 30 mg Estradiol (Estrace 0.01% Vaginal Cream) 1 gm VAG Q2D [facility] Last Admin: 08/17/17 16:01 Dose: 1 gm Fluticasone Propionate (Flonase Nasal [place]) 0 gm NASAL DAILY [facility] Last Admin: 08/19/17 08:58 Dose: 1 spr Gabapentin (Neurontin) 100 mg PO BID [facility] Last Admin: 08/19/17 08:57 Dose: 100 mg Furosemide 100 mg/ Sodium (Chloride) 100 mls @ 5 mls/hr IVPB INF [facility] PRN Reason: 5 MG/HR Last Admin: 08/19/17 06:21 Dose: 100 mls Ceftriaxone Sodium 1 gm/ (Sodium Chloride) 100 mls @ 200 mls/hr IVPB Q24HR [facility] Metolazone (Zaroxolyn) 5 mg PO 1800 [facility] Stop: 08/19/17 20:00 Oxybutynin Chloride (Ditropan) 5 mg PO TID PRN PRN Reason: Bladder Spasms Pantoprazole Sodium (Protonix) 40 mg PO DAILY [facility] Last Admin: 08/19/17 08:57 Dose: 40 mg Potassium Chloride (Klor-Con) 20 meq PO BID[facility] Sodium Chloride (Flush - Normal Saline) 10 ml IVF Q12HR [facility] Last Admin: 08/19/17 08:59 Dose: Not Given Sodium Chloride (Flush - Normal Saline) 10 ml IVF PRN PRN PRN Reason: Saline Flush Tramadol HCl (Ultram) 50 mg PO TID PRN PRN Reason: Pain Last Admin: 08/19/17 09:01 Dose: 50 mg Warfarin Sodium (Coumadin) 2.5 mg PO SuMoWeFrSa@1700 [facility] Last Admin: 08/18/17 17:10 Dose: 2.5 mg Warfarin Sodium (Coumadin) 5 mg PO TuTh@1700 [facility]
[2017-08-19] MEDS ORDERED: cefTRIAXone\\ROCEPHIN 1 GM in Sodium Chloride 0.9% 100 ML IVPB SCH (12:30)
[2017-08-19] MEDS: cefTRIAXone\\ROCEPHIN 1 GM, Syringe 0.4 ML in Sterile Water 9.6 ML SLOW IVP SCH (13:56)
--- NOTE | 2017-08-19 15:15 | PRG ---
DATE OF SERVICE: 08/19/2017 SUBJECTIVE: Ms. Dodie Trinidad was sitting on side of the bed. Her abdominal girth is such that s he cannot sit up straight, has to put her arms behind and lean a little bit backwards. OBJECTIVE: VITAL SIGNS: She is afebrile, heart rate 87, respiratory rate 20, oximetry is 93 on 2 liters, blood pressure 152/71. LUNGS: Remarkable for end expiratory wheezes. CARDIOVASCULAR: Heart is regular rhythm. ABDOMEN: Soft. IMPRESSION: 1. Diastolic dysfunction on top of chronic kidney disease. 2. Life threatening obesity. 3. Sleep apnea, compliant with BiPAP. PLAN: Continue current care in regards to Cardiology and Nephrology.
[2017-08-19] MEDS: Warfarin Sodium 5 MG TAB PO SCH (15:32)
[2017-08-19] MEDS: Estradiol 0.01% Vaginal Cream 42.5 gm Tube VAG SCH (16:40)
[2017-08-19] MEDS ORDERED: Metolazone 5 MG TAB PO SCH (18:00)
[2017-08-20] MEDS: Furosemide 100 MG in Sodium Chloride 0.9% 90 ML IVPB SCH (03:59)
[2017-08-20 05:13] LABS: BUN (Urea Nitrogen) 52 mg/dL (9.8-20.1); Calc. Creatinine Clearance 61 mL/min (70-130); Calcium 10.3 mg/dL (7.8-10.44); Estimated GFR-MDRD 28; Magnesium 1.9 mg/dL (1.6-2.6)
[2017-08-20 05:22] LABS: Anion Gap 15 mmol/L (10-20); Carbon Dioxide 38 mmol/L (23-31); Chloride 95 mmol/L (98-107)
--- NOTE | 2017-08-20 08:44 | PRG ---
DATE OF SERVICE: 08/20/2017 SUBJECTIVE: Ms. Trinidad is doing better. She continues to diurese very well. PHYSICAL EXAMINATION: VITAL SIGNS: Blood pressure 149/62, pulse 89. LUNGS: Clear. CARDIAC: Normal S1, normal S2. ABDOMEN: Soft, nontender. EXTREMITIES: There is still severe edema, although it is improving. Creatinines are remaining stable despite the diuresis, creatinine 1.74, potassium 3.0, magnesium 1. 9. ASSESSMENT: 1. Acute diastolic congestive heart failure. Continues to diurese. 2. Ejection fraction is 50-55%. 3. Hypokalemia. 4. Hypomagnesemia. PLAN: 1. Continue diuretic therapy. 2. Would continue intravenous diuretics, she is tolerating extremely well. Her weight is down 42 p ounds. 3. We will give an additional dose of metolazone tonight. We will make it 2.5 mg.
[2017-08-20] MEDS ORDERED: Magnesium 2 GM/NS 0.9% 100 ML 2 GM in Premix Bag 1 BAG IVPB SCH (08:45)
[2017-08-20] MEDS: Acetaminophen 500 MG TAB PO PRN ×2 (08:47→15:51)
[2017-08-20] MEDS: traMADol HCl 50 MG TAB PO PRN ×2 (08:47→15:50)
[2017-08-20] MEDS: Allopurinol 100 MG TAB PO SCH (09:17)
[2017-08-20] MEDS: Docusate 100 MG CAP PO SCH ×2 (09:18→22:18)
[2017-08-20] MEDS: Gabapentin 100 MG CAP PO SCH ×2 (09:18→22:18)
[2017-08-20] MEDS: Ascorbic Acid 500 mg Chewable Tablet PO SCH (09:18)
[2017-08-20] MEDS: Fluticasone Propionate Nasal Spray 16 gm Bottle NASAL SCH (09:20)
--- NOTE | 2017-08-20 09:59 | PDOC.PN ---
- Subjective Encounter Start Date: 08/20/17 Encounter Start Time: 09:30 Subjective: awake, no trouble breathing -: had good sleep - Objective MAR Reviewed: Yes Vital Signs & Weight: Vital Signs (12 hours) Temp Pulse Resp BP BP Pulse Ox 08/20/17 07:16 98.0 F 89 20 149/62 H 96 08/20/17 04:00 98.8 F 87 22 H 145/69 H 90 L 08/20/17 00:00 98.1 F 84 18 134/61 92 L Weight Admit Weight 338 lb 9.6 oz Weight 296 lb 6.4 oz I&O: 08/19/17 08/20/17 08/21/17 06:59 06:59 06:59 Intake Total 1230 1160 Output Total 8579 3723 Balance -5779 -8469 Result Diagrams: 08/18/17 07:32 08/20/17 04:02 Phys Exam - Physical Examination HEENT: PERRLA, moist MMs Neck: no JVD, supple Respiratory: no wheezing, no rales Cardiovascular: RRR, no significant murmur Gastrointestinal: soft, positive bowel sounds abd wall edema Musculoskeletal: pulses present, edema present Neurological: non-focal, moves all 4 limbs Psychiatric: A&O x 3 Dx/Plan (1) Volume overload Code(s): E87.70 - FLUID OVERLOAD, UNSPECIFIED Status: Acute (2) Acute exacerbation of CHF (congestive heart failure) Code(s): I50.9 - HEART FAILURE, UNSPECIFIED Status: Acute Qualifiers: Congestive heart failure type: diastolic Qualified Code(s): I50.33 - Acute on chronic diastolic (congestive) heart failure (3) UTI (urinary tract infection) Status: Acute Qualifiers: Urinary tract infection type: acute cystitis Hematuria presence: without hematuria Qualified Code(s): N30.00 - Acute cystitis without hematuria (4) Anasarca Code(s): R60.1 - GENERALIZED EDEMA Status: Acute (5) Chronic acquired lymphedema Code(s): I89.0 - LYMPHEDEMA, NOT ELSEWHERE CLASSIFIED Status: Chronic (6) Dyslipidemia Code(s): E78.5 - HYPERLIPIDEMIA, UNSPECIFIED Status: Chronic (7) History of deep venous thrombosis or pulmonary embolus Code(s): MCG6194 - Status: Chronic (8) Hypertension Code(s): I10 - ESSENTIAL (PRIMARY) HYPERTENSION Status: Chronic Qualifiers: Hypertension type: essential hypertension (9) Morbid obesity Code(s): E66.01 - MORBID (SEVERE) OBESITY DUE TO EXCESS CALORIES Status: Chronic (10) FAUSTINO (obstructive sleep apnea) Code(s): G47.33 - OBSTRUCTIVE SLEEP APNEA (ADULT) (PEDIATRIC) Status: Chronic (11) Physical deconditioning Code(s): R53.81 - OTHER MALAISE Status: Chronic - Plan will switch from lasix drip to iv q12h -: still has large volume anasarca but better than before -: prognosis guarded, has not amb from a long time -: PT to mobilize as tolerated, renal function is holding up -: may place midline at bedside * . Review of Systems - Medications/Allergies Allergies/Adverse Reactions: Allergies Allergy/AdvReac Type Severity Reaction Status Date / Time Penicillins Allergy Unknown Verified 12/02/16 01:41 Medications: Current Medications Acetaminophen (Tylenol) 500 mg PO Q6H PRN PRN Reason: Headache/Fever or Pain Last Admin: 08/20/17 08:47 Dose: 500 mg Hydrocodone Bitart/Acetaminophen ([place] 7.5/325) 1 tab PO Q6H PRN PRN Reason: Pain 7-10 Allopurinol (Zyloprim) 100 mg PO DAILY [facility] Last Admin: 08/20/17 09:17 Dose: 100 mg Ascorbic Acid (Vitamin C) 1,000 mg PO DAILY [facility] Last Admin: 08/20/17 09:18 Dose: 1,000 mg Docusate Sodium (Colace) 100 mg PO BID [facility] Last Admin: 08/20/17 09:18 Dose: 100 mg Duloxetine HCl (Cymbalta) 30 mg PO DAILY [facility] Last Admin: 08/20/17 09:18 Dose: 30 mg Estradiol (Estrace 0.01% Vaginal Cream) 1 gm VAG Q2D [facility] Last Admin: 08/19/17 16:40 Dose: 1 gm Fluticasone Propionate (Flonase Nasal [place]) 0 gm NASAL DAILY [facility] Last Admin: 08/20/17 09:20 Dose: 2 spr Furosemide (Lasix) 40 mg SLOW IVP 0600,1400 [facility] Gabapentin (Neurontin) 100 mg PO BID [facility] Last Admin: 08/20/17 09:18 Dose: 100 mg Ceftriaxone Sodium 1 gm/ (Syringe 0.4 ml/ Sterile Water) 10 mls @ 120 mls/hr SLOW IVP 1300 [facility] Last Admin: 08/19/17 13:56 Dose: 10 mls Magnesium Sulfate 2 gm/ Device 100 mls @ 100 mls/hr IVPB ONE [facility] Stop: 08/20/17 10:00 Last Admin: 08/20/17 09:19 Dose: 100 mls Metolazone (Zaroxolyn) 2.5 mg PO ONE [facility] Stop: 08/20/17 21:00 Oxybutynin Chloride (Ditropan) 5 mg PO TID PRN PRN Reason: Bladder Spasms Pantoprazole Sodium (Protonix) 40 mg PO DAILY [facility] Last Admin: 08/20/17 09:18 Dose: 40 mg Potassium Chloride (Klor-Con) 20 meq PO BID[facility] Last Admin: 08/20/17 09:17 Dose: 20 meq Potassium Chloride (K-Dur) 40 meq PO 1200 [facility] Stop: 08/20/17 13:00 Sodium Chloride (Flush - Normal Saline) 10 ml IVF Q12HR [facility] Last Admin: 08/20/17 09:20 Dose: Not Given Sodium Chloride (Flush - Normal Saline) 10 ml IVF PRN PRN PRN Reason: Saline Flush Tramadol HCl (Ultram) 50 mg PO TID PRN PRN Reason: Pain Last Admin: 08/20/17 08:47 Dose: 50 mg Warfarin Sodium (Coumadin) 2.5 mg PO SuMoWeFrSa@1700 [facility] Last Admin: 08/18/17 17:10 Dose: 2.5 mg Warfarin Sodium (Coumadin) 5 mg PO TuTh@1700 [facility] Last Admin: 08/19/17 15:32 Dose: 5 mg
[2017-08-20] MEDS ORDERED: Potassium Chloride 20 MEQ TAB PO SCH (12:00)
[2017-08-20] MEDS: Furosemide 40 MG/4 ML VIAL SLOW IVP SCH (14:19)
[2017-08-20] MEDS: cefTRIAXone\\ROCEPHIN 1 GM, Syringe 0.4 ML in Sterile Water 9.6 ML SLOW IVP SCH (14:20)
[2017-08-20] MEDS: Warfarin Sodium 2.5 MG TAB PO SCH (15:51)
--- NOTE | 2017-08-20 19:01 | PRG ---
DATE OF SERVICE: 08/20/2017 SUBJECTIVE: Patient was seen and examined at bedside and overnight events noted. Patient denies any shortness of breath or chest pain or palpitation. No history of nausea or vomiting or diarrhea or fever or chills or cramps. OBJECTIVE: GENERAL: This is a well-built elderly female, in no apparent distress. VITAL SIGNS: Afebrile RR 18 , blood pressure 149/62. HEENT: Atraumatic, normocephalic. Oral mucosa is moist. NECK: Supple. CARDIOVASCULAR: S1, S2 heard. Rate and rhythm regular. RESPIRATORY: Clear to auscultation. GASTROINTESTINAL: Abdomen is soft. MUSCULOSKELETAL: . DERMATOLOGIC: No skin rash. NEUROLOGIC: Alert and awake and oriented x3. No focal neurologic deficits. Moving all the extremities. PSYCHIATRIC: Mood and affect normal. LABORATORY DATA: Potassium is 3.7, BUN is 52, creatinine 1.7. ASSESSMENT AND PLAN: 1. Acute kidney injury on chronic kidney disease. Renal function is stable. She did have a 42 pound weight loss since admission and almost 20 kilos taken off with diuresis. Patient is feeling better. Continue on diuresis. Agree with stopping the Lasix drip and intermittent Lasix. We will have close monitor. 2. Hypokalemia. Continue to supplements and monitor magnesium and potassium. 3. Hypertension. 4. Cardiorenal syndrome as above. 5. Follow with Cardiology was having good diuresis with stable creatinine. We will continue to follow. Replace potassium. MTDD
[2017-08-20] MEDS ORDERED: Metolazone 5 MG TAB PO SCH (20:00)
[2017-08-21] MEDS: Acetaminophen 500 MG TAB PO PRN ×3 (00:04→19:10)
[2017-08-21] MEDS: traMADol HCl 50 MG TAB PO PRN ×3 (00:04→19:09)
[2017-08-21 05:09] LABS: BUN (Urea Nitrogen) 43 mg/dL (9.8-20.1); Calc. Creatinine Clearance 65 mL/min (70-130); Calcium 10.8 mg/dL (7.8-10.44); Estimated GFR-MDRD 35
[2017-08-21 05:20] LABS: Anion Gap 23 mmol/L (10-20); Carbon Dioxide 36 mmol/L (23-31); Chloride 92 mmol/L (98-107)
[2017-08-21] MEDS: Furosemide 40 MG/4 ML VIAL SLOW IVP SCH ×2 (06:39→13:35)
[2017-08-21] MEDS ORDERED: Magnesium 2 GM/NS 0.9% 100 ML 2 GM in Premix Bag 1 BAG IVPB SCH (08:00)
--- NOTE | 2017-08-21 08:12 | PRG ---
DATE OF SERVICE: 08/21/2017 SUBJECTIVE: Ms. Trinidad is coughing a lot this morning. She was taken off intravenous diuretics ye ster afternoon it appears. PHYSICAL EXAMINATION: VITAL SIGNS: Blood pressure is higher 170/90, pulse is 90, it is regular. LUNGS: She still has basilar rales when she sits up. CARDIAC: Normal S1 and S2. ABDOMEN: Soft, nontender. EXTREMITIES: There is still severe edema. ASSESSMENT: 1. Diastolic heart failure, still volume overloaded. 2. Renal failure, actually kidney functions improve with diuresis. Creatinine has gone from 1.79 t o 1.45. 3. Hypokalemia despite potassium 3.0. 4. Magnesium on the low side still despite magnesium. PLAN: 1. Continue intravenous diuretics. 2. Take 5 mg of Zaroxolyn tonight. 3. Replete potassium and magnesium. 4. The patient still appears to have probably another 15-20 pounds of fluid that needs to be diures ed.
[2017-08-21] MEDS: Allopurinol 100 MG TAB PO SCH (09:51)
[2017-08-21] MEDS: Ascorbic Acid 500 mg Chewable Tablet PO SCH (09:51)
[2017-08-21] MEDS: Docusate 100 MG CAP PO SCH ×3 (09:51→20:45)
[2017-08-21] MEDS: hydrALAZINE 25 MG TAB PO SCH ×3 (09:52→20:43)
[2017-08-21] MEDS: Gabapentin 100 MG CAP PO SCH ×2 (09:52→20:42)
[2017-08-21] MEDS: Fluticasone Propionate Nasal Spray 16 gm Bottle NASAL SCH (09:54)
[2017-08-21] MEDS ORDERED: Potassium Chloride 20 MEQ TAB PO SCH (12:00)
--- NOTE | 2017-08-21 13:16 | PDOC.PN ---
- Subjective Encounter Start Date: 08/21/17 Encounter Start Time: 13:14 doing better sob better no cp some cough some chest wall pain due to cough no n/v - Objective MAR Reviewed: Yes Vital Signs & Weight: Vital Signs (12 hours) Temp Pulse Resp BP BP Pulse Ox 08/21/17 11:27 98.5 F 95 20 173/91 H 92 L 08/21/17 09:52 90 170/91 H 08/21/17 08:00 98.6 F 90 20 93 L 08/21/17 07:08 98.6 F 90 20 170/91 H 93 L 08/21/17 04:00 99.1 F 88 18 157/81 H 90 L Weight Admit Weight 338 lb 9.6 oz Weight 285 lb I&O: 08/20/17 08/21/17 08/22/17 06:59 06:59 06:59 Intake Total 1160 1090 Output Total 8796 4650 Balance -7615 -9710 Result Diagrams: 08/18/17 07:32 08/21/17 04:43 Phys Exam - Physical Examination Constitutional: NAD HEENT: PERRLA Neck: no JVD bibasilar rales Cardiovascular: no significant murmur Gastrointestinal: non-tender Musculoskeletal: edema present Neurological: moves all 4 limbs Psychiatric: A&O x 3 Dx/Plan (1) Acute diastolic CHF (congestive heart failure) Code(s): I50.31 - ACUTE DIASTOLIC (CONGESTIVE) HEART FAILURE Status: Acute Comment: ef 55% (2) UTI (urinary tract infection) Status: Acute Comment: due to proteus mirabilus on rocephin (3) Hypokalemia Code(s): E87.6 - HYPOKALEMIA Status: Acute (4) Dyslipidemia Code(s): E78.5 - HYPERLIPIDEMIA, UNSPECIFIED Status: Chronic (5) Hypertension Code(s): I10 - ESSENTIAL (PRIMARY) HYPERTENSION Status: Chronic Qualifiers: Hypertension type: essential hypertension (6) Morbid obesity with BMI of 45.0-49.9, adult Code(s): E66.01 - MORBID (SEVERE) OBESITY DUE TO EXCESS CALORIES; Z68.42 - BODY MASS INDEX (BMI) 45.0-49.9, ADULT Status: Chronic (7) FAUSTINO (obstructive sleep apnea) Code(s): G47.33 - OBSTRUCTIVE SLEEP APNEA (ADULT) (PEDIATRIC) Status: Chronic (8) Physical deconditioning Code(s): R53.81 - OTHER MALAISE Status: Chronic - Plan * cont diuresis per card * rocephin for uti * cxr, tessalon perles, sputum cul for cough * oob to chair
[2017-08-21] MEDS: Benzonatate 100 MG CAP PO PRN (13:36)
[2017-08-21] MEDS: cefTRIAXone\\ROCEPHIN 1 GM, Syringe 0.4 ML in Sterile Water 9.6 ML SLOW IVP SCH (13:52)
[2017-08-21 14:41] LABS: Prothrombin Time 20.4 SEC (12.0-14.7)
--- NOTE | 2017-08-21 15:44 | PRG ---
DATE OF SERVICE: 08/21/2017 SUBJECTIVE: Patient was seen and examined at bedside and overnight events noted. Patient denies an y shortness of breath or chest pain or palpitation. No history of nausea or vomiting or diarrhea or fever or chills or cramps. PHYSICAL EXAMINATION: GENERAL: This is a well-built female in no apparent distress. VITAL SIGNS: Temperature 98.5, pulse 94, respiratory rate 20, blood pressure 170/91. She had a 53 pound of weight loss since admission from diuresis. HEENT: Atraumatic, normocephalic. Oral mucosa is moist. NECK: Supple CARDIOVASCULAR: S1, S2 heard. Rate and rhythm regular. RESPIRATORY: Clear to auscultation. GASTROINTESTINAL: Abdomen is soft. MUSCULOSKELETAL: 1+ edema. DERMATOLOGIC: No skin rash. NEUROLOGIC: Alert and awake and oriented x3. No focal neurologic deficits. Moving all the extremi ties. PSYCHIATRIC: Mood and affect normal. LABORATORY DATA: Potassium is 3.0, BUN is 43, creatinine is 1.4. ASSESSMENT AND PLAN: 1. Acute kidney injury on chronic kidney disease stage 3. Renal function is better, most likely fr om cardiorenal syndrome. Continue diuresis. 2. Hypokalemia. Replace and agree with extra dose of potassium. 3. Hypertension. 4. Cardiorenal syndrome. 5. Monitor potassium. Calcium level was also going up, of diurectics. Renal function is sta ble so far.
[2017-08-21] MEDS ORDERED: Metolazone 5 MG TAB PO SCH (16:00)
[2017-08-21] MEDS: Warfarin Sodium 5 MG TAB PO SCH (16:07)
[2017-08-21] MEDS: Estradiol 0.01% Vaginal Cream 42.5 gm Tube VAG SCH (16:14)
--- NOTE | 2017-08-21 17:40 | PRG ---
DATE OF SERVICE: 08/21/2017 SUBJECTIVE: Ms. Trinidad did well overnight. She has no other complaints. She was sitting up in th e neuro chair. PHYSICAL EXAMINATION: VITAL SIGNS: Blood pressure has been elevated today between 170s-180s systolic and between low 90s and 104 diastolic. GENERAL APPEARANCE: She is afebrile, respiratory rate is in the teens, oximetry is 92% on 2 liters. LUNGS: Clear. HEART: Regular rhythm. ABDOMEN: Soft. LABORATORY DATA: Sodium 148, potassium 3, chloride 92, bicarbonate 36, BUN 43, creatinine 1.45. Th is has an improved creatinine. Calcium has gone up to 10.8. With diuresis, her fluid balance in th e last 24 hours is negative 3560. IMPRESSION: Volume overload with diastolic dysfunction and chronic kidney disease. PLAN: Continue diuresis. She is stable to move out of the intermediate care unit to a telemetry be d.
[2017-08-21] MEDS ORDERED: Furosemide 40 MG/4 ML VIAL SLOW IVP SCH (20:00)
[2017-08-22] MEDS: traMADol HCl 50 MG TAB PO PRN ×3 (01:40→18:24)
[2017-08-22] MEDS: Acetaminophen 500 MG TAB PO PRN ×3 (01:40→18:24)
[2017-08-22 04:00] LABS: Prothrombin Time 19.5 SEC (12.0-14.7)
[2017-08-22] MEDS: Furosemide 40 MG/4 ML VIAL SLOW IVP SCH ×2 (06:15→14:00)
--- NOTE | 2017-08-22 08:19 | PRG ---
DATE OF SERVICE: 08/22/2017 Ms. Trinidad did well overnight. She slept with BiPAP. She says she is feeling better. She is stil l intermittently hypertensive. PHYSICAL EXAMINATION: VITAL SIGNS: Her blood pressure this morning is 173/99. She is afebrile, heart rate is 92, respira tory rate is 20. Intake and output negative 4796. LUNGS: Her lungs are clear. HEART: Regular rhythm. ABDOMEN: Soft. LABORATORY DATA: White count 6.5, hemoglobin 11.4, platelets 276. Sodium 148, potassium 3.0, chlor tessie 92, bicarbonate 36, BUN 43, creatinine 1.45. IMPRESSION: 1. Anasarca, improving with significant diuresis. 2. Diastolic dysfunction. 3. Chronic kidney disease. 4. Chronic bedridden state. 5. Sleep apnea on BiPAP. PLAN: Continue diuresis. Transfer to telemetry unit.
[2017-08-22] MEDS ORDERED: Nitroglycerin 2% Ointment 1 INCH/1 GM Packet TOP SCH (08:30)
[2017-08-22] MEDS: Allopurinol 100 MG TAB PO SCH (08:38)
[2017-08-22] MEDS: Ascorbic Acid 500 mg Chewable Tablet PO SCH (08:38)
[2017-08-22] MEDS: Gabapentin 100 MG CAP PO SCH ×2 (08:39→19:52)
[2017-08-22] MEDS: Fluticasone Propionate Nasal Spray 16 gm Bottle NASAL SCH (08:39)
[2017-08-22] MEDS: Docusate 100 MG CAP PO SCH ×2 (08:39→19:52)
[2017-08-22 08:43] LABS: BUN (Urea Nitrogen) 38 mg/dL (9.8-20.1); Calc. Creatinine Clearance 65 mL/min (70-130); Estimated GFR-MDRD 39; Magnesium 1.6 mg/dL (1.6-2.6)
[2017-08-22 08:53] LABS: #Eosinphils 0.2 thou/uL (0.0-0.7); #Monocytes 0.6 thou/uL (0.11-0.59); %Basophils 0.4 % (0.0-1.0); %Eosinophils 2.1 % (0.0-10.0); %Lymphocytes 13.2 % (21.0-51.0); %Monocytes 7.5 % (0.0-10.0); Anion Gap 22 mmol/L (10-20); Carbon Dioxide 40 mmol/L (23-31); Chloride 88 mmol/L (98-107); Hematocrit 41.9 % (36.0-47.0); Mean Platelet Volume 7.6 fL (7.4-10.4); White Blood Cell (WBC) Count 7.9 thou/uL (4.8-10.8)
--- NOTE | 2017-08-22 08:53 | RAD ---
PORTABLE AP CHEST: Date: 08/22/17 HISTORY: CHF. COMPARISON: 08/16/17. FINDINGS: There has been interval worsening opacification with almost complete opacification now present invol ving the left hemithorax. There does appear to be abrupt cutoff of the left mainstem bronchus with s hift of the mediastinal structures to the left, but the patient is also rotated to the left limiting evaluation, but there is probably generalized volume loss left hemithorax. The cardiac silhouette i s mostly obscured. Mild perihilar interstitial prominence on the right. No other interval change. IMPRESSION: 1. Worsening opacity on the left with almost complete opacification of the left hemithorax. This ob scures the left cardiac border. There does appear to be abrupt cutoff of the left mainstem bronchus, and findings could be related to obstruction of the bronchus related to mucus plugging or other yaritza ology with collapse of the left lung or postobstructive pneumonitis. CT scan may be helpful for furt her evaluation versus bronchoscopy. 2. Mild nonspecific prominence of the perihilar and interstitial densities on the right. 3. Pleural fluid on the left. Underlying mass could not be entirely excluded given opacification of the left hemithorax. POS: [facility]
--- NOTE | 2017-08-22 09:17 | PRG ---
DATE OF SERVICE: 08/22/2017 SUBJECTIVE: Ms. Trinidad looks worse today. She is more short of breath. Her oxygen levels were in the low 80s, on 2 liters nasal cannula. She is breathing harder. PHYSICAL EXAMINATION: VITAL SIGNS: Her blood pressure is 173/99; pulse is in 90s, yesterday it had been in the 80s. LUNGS: There is basilar rales and decreased breath sounds on the left. CARDIAC: Heart rate is increased. ABDOMEN: Soft, nontender. EXTREMITIES: Still severe edema. On the I and O the patient down another 5 liters yesterday; weight has gone from 336 down to 272. ASSESSMENT: 1. Diastolic heart failure, worsened today despite diuresis. 2. Morbid obesity. 3. Worsening status? with the patient has ischemic heart disease. PLAN: 1. Back on BiPAP. 2. May need to give intravenous nitrates. 3. Prognosis is guarded in this patient.
[2017-08-22] MEDS ORDERED: Enoxaparin Sodium 100 MG/ML SYRINGE SC SCH (09:45)
--- NOTE | 2017-08-22 09:47 | PRG ---
DATE OF SERVICE: 08/22/2017 SUBJECTIVE: The patient was seen and examined at bedside. patient and family, the daughter a t the bedside. The patient is complaining of chest pain. She was hypoxic. The plan is to put her back on CPAP or BiPAP. Cardiology is working. Her chest x-ray also is looking worse with fluid ove rload. The patient did have 64 pounds of weight loss with diuresis. PHYSICAL EXAMINATION: GENERAL: This is a morbidly obese white female in mild distress. VITAL SIGNS: Temperature 98.7, pulse 72, respiratory 20, blood pressure 173/99. HEENT: Atraumatic, normocephalic. Oral mucosa is moist. NECK: Supple, no masses. CARDIOVASCULAR: S1, S2. Rate and rhythm regular. RESPIRATORY: Clear. GASTROINTESTINAL: Soft. MUSCULOSKELETAL: No tenderness noted. DERMATOLOGIC: No skin rashes. NEUROLOGIC: Alert and awake. PSYCHIATRIC: Mood and affect normal. LABORATORY DATA: Potassium is 3.2, BUN 38, creatinine is 1.3. ASSESSMENT AND PLAN: 1. Acute kidney injury on chronic kidney disease, stage 3, renal function is better. Creatinine is 1.3 from 1.4, but other labs electrolytes shows that probably also getting dehydration. 2. Hypernatremia. We will reduce diuretics. 3. Hypokalemia, replace and monitor. 4. Alkalosis secondary to diuresis. 5. Azotemia. 6. Anemia. 7. Edema. 8. Cardiorenal syndrome. Follow up with Cardiology. Follow up with Cardiology for diuresis. The patient having hypoxia. I will follow.
--- NOTE | 2017-08-22 13:18 | PDOC.PN ---
- Subjective Encounter Start Date: 08/22/17 Encounter Start Time: 13:17 developed sob sbp was high and got nitro patch no n/v still coughing no f/c diuresing well - Objective MAR Reviewed: Yes Vital Signs & Weight: Vital Signs (12 hours) Temp Pulse Resp BP Pulse Ox 08/22/17 12:00 91 L 08/22/17 11:00 98.9 F 97 18 175/109 H 91 L 08/22/17 08:00 97.8 F 97 20 85 L 08/22/17 07:12 97.8 F 92 20 173/99 H 97 08/22/17 07:01 97 08/22/17 04:00 99.1 F 92 18 172/86 H 96 08/22/17 02:38 99 Weight Admit Weight 338 lb 9.6 oz Weight 272 lb 8 oz I&O: 08/21/17 08/22/17 08/23/17 06:59 06:59 06:59 Intake Total 1090 1354 Output Total 4650 0405 Balance -5692 -6951 Result Diagrams: 08/22/17 08:10 08/22/17 08:10 Phys Exam - Physical Examination Constitutional: NAD HEENT: PERRLA Neck: no nodes decreased bs at bases, l>r Cardiovascular: RRR Gastrointestinal: non-tender Musculoskeletal: edema present Neurological: moves all 4 limbs Psychiatric: A&O x 3 Dx/Plan (1) Acute diastolic CHF (congestive heart failure) Code(s): I50.31 - ACUTE DIASTOLIC (CONGESTIVE) HEART FAILURE Status: Acute Comment: ef 55% (2) UTI (urinary tract infection) Status: Acute Comment: due to proteus mirabilus on rocephin (3) Hypokalemia Code(s): E87.6 - HYPOKALEMIA Status: Acute (4) Dyslipidemia Code(s): E78.5 - HYPERLIPIDEMIA, UNSPECIFIED Status: Chronic (5) Hypertension Code(s): I10 - ESSENTIAL (PRIMARY) HYPERTENSION Status: Chronic Qualifiers: Hypertension type: essential hypertension (6) Morbid obesity with BMI of 45.0-49.9, adult Code(s): E66.01 - MORBID (SEVERE) OBESITY DUE TO EXCESS CALORIES; Z68.42 - BODY MASS INDEX (BMI) 45.0-49.9, ADULT Status: Chronic (7) FAUSTINO (obstructive sleep apnea) Code(s): G47.33 - OBSTRUCTIVE SLEEP APNEA (ADULT) (PEDIATRIC) Status: Chronic Comment: on bipap (8) Physical deconditioning Code(s): R53.81 - OTHER MALAISE Status: Chronic - Plan * f/u dr archer plan for bp control and diuresis * f/u dr bernabe plan for sob * on lovenox * renal input appreciated
[2017-08-22] MEDS: cefTRIAXone\\ROCEPHIN 1 GM, Syringe 0.4 ML in Sterile Water 9.6 ML SLOW IVP SCH (13:59)
[2017-08-22] MEDS: Nitroglycerin 2% Ointment 1 INCH/1 GM Packet TOP SCH ×2 (14:00→21:29)
[2017-08-22] MEDS ORDERED: niCARdipine 40MG In NaCl 40 MG/200 ML BAG IVPB SCH (15:47)
[2017-08-22] MEDS ORDERED: niCARdipine HCl 25 MG in Sodium Chloride 0.9% 250 ML 240 ML IVPB SCH (16:00)
--- NOTE | 2017-08-22 16:10 | EKG ---
Test Reason : Blood Pressure : / mmHG Vent. Rate : 098 BPM Atrial Rate : 098 BPM P-R Int : 210 ms QRS Dur : 116 ms QT Int : 330 ms P-R-T Axes : 054 -38 074 degrees QTc Int : 421 ms Sinus rhythm with 1st degree A-V block Left axis deviation Left ventricular hypertrophy with QRS widening Nonspecific T wave abnormality Abnormal ECG When compared with ECG of 16-AUG-2017 19:38, (Unconfirmed) Sinus rhythm has replaced Junctional rhythm Borderline criteria for Anterolateral infarct are no longer Present QT has lengthened Confirmed by DR. Giancarlo HUTCHINSON ([id number]) on 08/22/2017 4:09:58 PM Referred By: EVANGELINA Confirmed By:DR. Giancarlo HUTCHINSON
[2017-08-22] MEDS: Warfarin Sodium 5 MG TAB PO SCH (16:46)
[2017-08-22] MEDS ORDERED: Amlodipine 5 MG TAB PO SCH (18:45)
[2017-08-22] MEDS ORDERED: Metolazone 5 MG TAB PO SCH (18:45)
[2017-08-22] MEDS: niCARdipine HCl 25 MG in Sodium Chloride 0.9% 250 ML 240 ML IVPB SCH ×2 (19:56→22:45)
[2017-08-22] MEDS ORDERED: Potassium Chloride 20 MEQ TAB PO SCH ×2 (20:00)
[2017-08-22] MEDS ORDERED: Furosemide 40 MG/4 ML VIAL SLOW IVP SCH (20:00)
[2017-08-22] MEDS: Benzonatate 100 MG CAP PO PRN (21:29)
[2017-08-23] MEDS: niCARdipine HCl 25 MG in Sodium Chloride 0.9% 250 ML 240 ML IVPB SCH ×2 (01:19→07:52)
[2017-08-23 04:46] LABS: #Eosinphils 0.1 thou/uL (0.0-0.7); #Lymphocytes 0.8 thou/uL (1.20-3.40); #Monocytes 0.6 thou/uL (0.11-0.59); #Neutrophils 6.6 thou/uL (1.40-6.50); %Basophils 0.2 % (0.0-1.0); %Eosinophils 1.5 % (0.0-10.0); %Lymphocytes 10.4 % (21.0-51.0); %Monocytes 6.9 % (0.0-10.0); Hematocrit 39.3 % (36.0-47.0); Mean Platelet Volume 8.1 fL (7.4-10.4); Red Blood Cell (RBC) Count 4.03 mill/uL (4.20-5.40); White Blood Cell (WBC) Count 8.1 thou/uL (4.8-10.8)
[2017-08-23] MEDS: Furosemide 40 MG/4 ML VIAL SLOW IVP SCH ×2 (05:37→14:26)
[2017-08-23] MEDS: Nitroglycerin 2% Ointment 1 INCH/1 GM Packet TOP SCH ×3 (05:38→21:42)
[2017-08-23] MEDS: Gabapentin 100 MG CAP PO SCH ×2 (07:52→20:58)
[2017-08-23] MEDS: Docusate 100 MG CAP PO SCH ×2 (07:52→20:58)
[2017-08-23] MEDS: Ascorbic Acid 500 mg Chewable Tablet PO SCH (07:53)
[2017-08-23] MEDS: Allopurinol 100 MG TAB PO SCH (07:53)
[2017-08-23] MEDS: Fluticasone Propionate Nasal Spray 16 gm Bottle NASAL SCH (07:54)
[2017-08-23] MEDS: Amlodipine 5 MG TAB PO SCH (07:55)
[2017-08-23] MEDS ORDERED: guaiFENesin/Dextromethorphan 10 ML UDCUP PO PRN (08:42)
[2017-08-23] MEDS ORDERED: Azithromycin 500 MG in Sodium Chloride 0.9% 250 ML 250 ML IVPB SCH (09:00)
[2017-08-23] MEDS ORDERED: Bisacodyl 10 MG SUPP PR PRN (09:10)
[2017-08-23 10:02] LABS: Prothrombin Time 20.7 SEC (12.0-14.7)
[2017-08-23 11:03] LABS: BUN (Urea Nitrogen) 35 mg/dL (9.8-20.1); Calc. Creatinine Clearance 61 mL/min (70-130); Calcium 10.8 mg/dL (7.8-10.44); Estimated GFR-MDRD 37
[2017-08-23] MEDS: cefTRIAXone\\ROCEPHIN 1 GM, Syringe 0.4 ML in Sterile Water 9.6 ML SLOW IVP SCH (11:09)
[2017-08-23 11:11] LABS: Carbon Dioxide Greater than 37 mmol/L (23-31); Chloride 85 mmol/L (98-107)
--- NOTE | 2017-08-23 12:06 | PRG ---
PULMONARY CRITICAL CARE PROGRESS NOTE DATE OF SERVICE: 08/23/2017 Thirty-five minutes critical care time. SUBJECTIVE: The patient remains in the CCU. She required BiPAP last night. She feels better this morning. Currently, she is on 3 liters nasal cannula. OBJECTIVE: VITAL SIGNS: Her temperature is 98.0, pulse 90, blood pressure 132/64, 24-hour intake 1144 and outp ut 5800, weight 262 pounds. HEENT: Unremarkable except for copious mucoid secretions that she is coughing up. NECK: Without adenopathy or JVD. LUNGS: Coarse rhonchi on the left side, fairly clear on the right. CARDIAC: S1 and S2 regular. ABDOMEN: Soft. EXTREMITIES: 4+ edema from the knees downward. LABORATORY DATA: Sodium 147, potassium 3.2, chloride 88, CO2 of 40, BUN 38, creatinine 1.3 and gluc ose 102. White blood cell count 8.1, hemoglobin 11.4, hematocrit 39.3 and platelet count 223. ASSESSMENT: 1. Acute respiratory failure, likely secondary to either bronchitis or pneumonitis superimposed on congestive heart failure. 2. Anasarca from diastolic cardiac dysfunction. 3. Chronic kidney disease. 4. Chronic bedridden state. PLAN: 1. Add Zithromax to the Rocephin. 2. Add mucolytic. 3. Add some IV steroids. 4. Continue BiPAP intermittently as needed. 5. Replace potassium. 6. Update family at the bedside.
--- NOTE | 2017-08-23 14:08 | PDOC.PN ---
- Subjective Encounter Start Date: 08/23/17 Encounter Start Time: 14:04 breathing better still coughing no f/c on bipap no n/v - Objective MAR Reviewed: Yes Vital Signs & Weight: Vital Signs (12 hours) Temp Pulse Pulse Pulse Resp BP BP 08/23/17 13:07 97 98 139/82 08/23/17 12:00 98.1 F 08/23/17 11:00 98 F 08/23/17 08:00 98.1 F 88 20 08/23/17 07:55 82 116/58 L 08/23/17 07:00 08/23/17 04:00 98.0 F BP Pulse Ox Pulse Ox Pulse Ox 08/23/17 13:07 146/82 H 94 L 92 L 08/23/17 12:00 08/23/17 11:00 08/23/17 08:00 96 08/23/17 07:55 08/23/17 07:00 95 08/23/17 04:00 Weight Admit Weight 338 lb 9.6 oz Weight 262 lb 0.663 oz Most Recent Monitor Data Heart Rate from ECG 100 NIBP 146/83 NIBP BP-Mean 107 Respiration from ECG 26 SpO2 94 I&O: 08/22/17 08/23/17 08/24/17 06:59 06:59 05:59 Intake Total 1354 1997 540 Output Total 2449 5800 1760 [id number] -3803 -1220 Result Diagrams: 08/23/17 04:20 08/23/17 09:46 Phys Exam - Physical Examination Constitutional: NAD HEENT: PERRLA Neck: no JVD coarse bs on left Cardiovascular: RRR Gastrointestinal: non-tender Musculoskeletal: pulses present Neurological: moves all 4 limbs Psychiatric: A&O x 3 Dx/Plan (1) Acute diastolic CHF (congestive heart failure) Code(s): I50.31 - ACUTE DIASTOLIC (CONGESTIVE) HEART FAILURE Status: Acute Comment: ef 55% (2) UTI (urinary tract infection) Status: Acute Comment: due to proteus mirabilus on rocephin (3) Hypokalemia Code(s): E87.6 - HYPOKALEMIA Status: Acute (4) Dyslipidemia Code(s): E78.5 - HYPERLIPIDEMIA, UNSPECIFIED Status: Chronic (5) Hypertension Code(s): I10 - ESSENTIAL (PRIMARY) HYPERTENSION Status: Chronic Qualifiers: Hypertension type: essential hypertension (6) Morbid obesity with BMI of 45.0-49.9, adult Code(s): E66.01 - MORBID (SEVERE) OBESITY DUE TO EXCESS CALORIES; Z68.42 - BODY MASS INDEX (BMI) 45.0-49.9, ADULT Status: Chronic (7) FAUSTINO (obstructive sleep apnea) Code(s): G47.33 - OBSTRUCTIVE SLEEP APNEA (ADULT) (PEDIATRIC) Status: Chronic Comment: on bipap (8) Physical deconditioning Code(s): R53.81 - OTHER MALAISE Status: Chronic (9) Acute respiratory failure Code(s): J96.00 - ACUTE RESPIRATORY FAILURE, UNSP W HYPOXIA OR HYPERCAPNIA Status: Acute Comment: possibly due to pnuemonitis and thick secretions which may cause mucus plugging add mucolytics, zithromax. steroids - Plan * on nicardipine for bp control. f/u dr archer plan for bp control and diuresis * f/u pulm plan
--- NOTE | 2017-08-23 16:13 | PRG ---
DATE OF SERVICE: 08/23/2017 SUBJECTIVE: The patient was transferred to ICU yesterday due to high blood pressure and she was on Cardene drip and Cardene drip was off. OBJECTIVE: GENERAL: This is a morbidly obese white female in no acute distress. VITAL SIGNS: Temperature 93, pulse 97, respiratory rate 20 and blood pressure 164/91. HEENT: Atraumatic and normocephalic. Oral mucosa is moist. NECK: Supple. CARDIOVASCULAR: S1 and S2 heard. Rate and rhythm regular. RESPIRATORY: Clear to auscultation. GASTROINTESTINAL: Abdomen is soft. MUSCULOSKELETAL: No tenderness. No edema. DERMATOLOGIC: No skin rash. NEUROLOGIC: Alert, awake and oriented x3. No focal neurologic deficits. Moving all the extremitie s. PSYCHIATRIC: Mood and affect normal. LABORATORY DATA: Potassium is 3.7, BUN is 35 and creatinine is 1.36. ASSESSMENT AND PLAN: 1. Acute kidney injury on chronic kidney disease stage 3. Renal function is stable. 2. Hypokalemia, much better. Monitor closely. Replace potassium and magnesium. Monitor magnesium level too. 3. Alkalosis secondary to diuresis. 4. Hypernatremia, better. 5. Hypercalcemia secondary to diuresis. 6. Cardiorenal syndrome as above. 7. Azotemia. 8. Edema, getting much better. 9. Overall, renal function is stable. Continue diuresis as tolerated. Follow with Cardiology.
[2017-08-23] MEDS: Carvedilol 6.25 MG TAB PO SCH (17:12)
[2017-08-23] MEDS: Warfarin Sodium 5 MG TAB PO SCH (17:13)
[2017-08-23] MEDS: Estradiol 0.01% Vaginal Cream 42.5 gm Tube VAG SCH (17:14)
[2017-08-23] MEDS: Acetaminophen 500 MG TAB PO PRN (18:14)
[2017-08-23] MEDS: traMADol HCl 50 MG TAB PO PRN (18:14)
[2017-08-24 04:41] LABS: #Lymphocytes 0.6 thou/uL (1.20-3.40); #Monocytes 0.2 thou/uL (0.11-0.59); #Neutrophils 6.4 thou/uL (1.40-6.50); %Basophils 0.1 % (0.0-1.0); %Eosinophils 0.2 % (0.0-10.0); %Monocytes 3.3 % (0.0-10.0); Hematocrit 40.2 % (36.0-47.0); Mean Platelet Volume 8.1 fL (7.4-10.4); Red Blood Cell (RBC) Count 4.12 mill/uL (4.20-5.40); White Blood Cell (WBC) Count 7.3 thou/uL (4.8-10.8)
[2017-08-24 04:46] LABS: Prothrombin Time 21.2 SEC (12.0-14.7)
[2017-08-24 04:50] LABS: BUN (Urea Nitrogen) 38 mg/dL (9.8-20.1); Calc. Creatinine Clearance 58 mL/min (70-130); Calcium 10.7 mg/dL (7.8-10.44); Estimated GFR-MDRD 36
[2017-08-24 04:59] LABS: Anion Gap 18 mmol/L (10-20); Chloride 83 mmol/L (98-107)
[2017-08-24 05:05] LABS: Carbon Dioxide 46 mmol/L (23-31)
[2017-08-24] MEDS ORDERED: Furosemide 40 MG/4 ML VIAL SLOW IVP SCH (06:00)
[2017-08-24] MEDS: Nitroglycerin 2% Ointment 1 INCH/1 GM Packet TOP SCH (06:10)
--- NOTE | 2017-08-24 08:07 | RAD ---
CHEST 1 VIEW: Date: 08/24/17 HISTORY: Dyspnea. Follow-up. COMPARISON: 08/22/17. FINDINGS: Cardiac silhouette remains magnified and enlarged. Pulmonary vasculature is engorged. There has been significant improvement in aeration of the left lung. Left pleural fluid is less pronounced than on the previous study. monitoring tech leads overlie the chest. IMPRESSION: 1. Significant improvement in aeration of the left lung. 2. Persistent pulmonary vascular congestion and cardiomegaly. POS: [facility]
[2017-08-24] MEDS: Azithromycin 250 MG in Sodium Chloride 0.9% 250 ML 250 ML IVPB SCH (08:56)
[2017-08-24] MEDS: Carvedilol 6.25 MG TAB PO SCH ×2 (08:59→17:07)
[2017-08-24] MEDS: Docusate 100 MG CAP PO SCH ×2 (09:00→20:48)
[2017-08-24] MEDS: Amlodipine 5 MG TAB PO SCH (09:01)
[2017-08-24] MEDS: Gabapentin 100 MG CAP PO SCH ×2 (09:01→20:40)
[2017-08-24] MEDS: Ascorbic Acid 500 mg Chewable Tablet PO SCH (09:01)
[2017-08-24] MEDS: Fluticasone Propionate Nasal Spray 16 gm Bottle NASAL SCH (09:01)
[2017-08-24] MEDS: Allopurinol 100 MG TAB PO SCH (09:01)
[2017-08-24] MEDS: Acetaminophen 500 MG TAB PO PRN ×2 (09:21→20:41)
[2017-08-24] MEDS: traMADol HCl 50 MG TAB PO PRN ×2 (09:21→20:41)
--- NOTE | 2017-08-24 09:52 | PRG ---
DATE OF SERVICE: 08/24/2017 SUBJECTIVE: Ms. Trinidad continues to improve. She is coughing up less in terms of secretions. PHYSICAL EXAMINATION: VITAL SIGNS: Temperature 97.4, pulse 85, blood pressure 141/81, O2 sat 98% on 2 liters. HEENT: Unremarkable. NECK: No JVD. LUNGS: Diminished breath sounds on the left compared to right. CARDIAC: S1 and S2 regular. ABDOMEN: Soft. EXTREMITIES: Edematous throughout. LABORATORY DATA AND X-RAY FINDINGS: White blood cell count 7.3, hematocrit 40.2, platelet count 216 . Sodium 142, potassium 3.7, chloride 83, CO2 46, BUN 38, creatinine 1.4, glucose 150. Chest x-ray demonstrates improvement in the aeration of the left lung. She still has massive cardiomegaly. Th ere may have a small left pleural effusion. ASSESSMENT: 1. Acute on chronic respiratory failure, requiring intermittent mechanical ventilation. 2. Anasarca from diastolic cardiac dysfunction. 3. Chronic kidney disease. 4. Chronic bedridden state. RECOMMENDATIONS: 1. She is developing some contraction and it is noted that her diuretics have been decreased today. 2. Continue BiPAP intermittently. 3. Continue the ceftriaxone and Zithromax. 4. Continue mucolytics. 5. Continue the low dose steroids that seemed to help her secretions somewhat. 6. Continue anticoagulation.
--- NOTE | 2017-08-24 10:21 | PDOC.PN ---
- Subjective Encounter Start Date: 08/24/17 Encounter Start Time: 10:19 cough improved breathing better no n/v no f/c - Objective MAR Reviewed: Yes Vital Signs & Weight: Vital Signs (12 hours) Temp Pulse Resp BP BP Pulse Ox 08/24/17 09:02 141/81 H 08/24/17 09:01 85 150/82 H 08/24/17 08:59 141/81 H 08/24/17 08:00 97.4 F L 85 18 95 08/24/17 07:36 97.4 F L 85 24 H 149/86 H 98 08/24/17 07:00 94 L 08/24/17 04:00 97.9 F 86 140/68 96 08/24/17 00:00 98.4 F 80 136/72 95 Weight Admit Weight 338 lb 9.6 oz Weight 250 lb 7 oz Most Recent Monitor Data Heart Rate from ECG 100 NIBP 146/83 NIBP BP-Mean 107 Respiration from ECG 26 SpO2 94 I&O: 08/23/17 08/24/17 08/25/17 07:59 06:59 06:59 Intake Total 300 Output Total Balance 300 Result Diagrams: 08/24/17 04:19 08/24/17 04:19 Phys Exam - Physical Examination Constitutional: NAD HEENT: PERRLA Neck: no nodes decreased bs at bases- lt > rt Cardiovascular: no significant murmur Gastrointestinal: non-tender Musculoskeletal: pulses present Neurological: moves all 4 limbs Psychiatric: A&O x 3 Dx/Plan (1) Acute diastolic CHF (congestive heart failure) Code(s): I50.31 - ACUTE DIASTOLIC (CONGESTIVE) HEART FAILURE Status: Acute Comment: ef 55% (2) UTI (urinary tract infection) Status: Acute Comment: due to proteus mirabilus on rocephin (3) Hypokalemia Code(s): E87.6 - HYPOKALEMIA Status: Acute (4) Dyslipidemia Code(s): E78.5 - HYPERLIPIDEMIA, UNSPECIFIED Status: Chronic (5) Hypertension Code(s): I10 - ESSENTIAL (PRIMARY) HYPERTENSION Status: Chronic Qualifiers: Hypertension type: essential hypertension (6) Morbid obesity with BMI of 45.0-49.9, adult Code(s): E66.01 - MORBID (SEVERE) OBESITY DUE TO EXCESS CALORIES; Z68.42 - BODY MASS INDEX (BMI) 45.0-49.9, ADULT Status: Chronic (7) FAUSTINO (obstructive sleep apnea) Code(s): G47.33 - OBSTRUCTIVE SLEEP APNEA (ADULT) (PEDIATRIC) Status: Chronic Comment: on bipap (8) Physical deconditioning Code(s): R53.81 - OTHER MALAISE Status: Chronic (9) Acute respiratory failure Code(s): J96.00 - ACUTE RESPIRATORY FAILURE, UNSP W HYPOXIA OR HYPERCAPNIA Status: Acute Comment: possibly due to pnuemonitis and thick secretions which may cause mucus plugging add mucolytics, zithromax. steroids - Plan * doing better * cont current mx * pulmonary and card input appreciated *
[2017-08-24] MEDS: cefTRIAXone\\ROCEPHIN 1 GM, Syringe 0.4 ML in Sterile Water 9.6 ML SLOW IVP SCH (14:02)
[2017-08-24] MEDS: Warfarin Sodium 3 MG TAB PO SCH (17:06)
[2017-08-25 05:35] LABS: Prothrombin Time 23.3 SEC (12.0-14.7)
[2017-08-25 05:37] LABS: #Lymphocytes 0.9 thou/uL (1.20-3.40); #Monocytes 0.3 thou/uL (0.11-0.59); #Neutrophils 7.5 thou/uL (1.40-6.50); %Basophils 0.1 % (0.0-1.0); %Eosinophils 0.5 % (0.0-10.0); %Lymphocytes 10.3 % (21.0-51.0); %Monocytes 3.5 % (0.0-10.0); Hematocrit 41.4 % (36.0-47.0); Mean Platelet Volume 8.6 fL (7.4-10.4); Red Blood Cell (RBC) Count 4.22 mill/uL (4.20-5.40); White Blood Cell (WBC) Count 8.8 thou/uL (4.8-10.8)
[2017-08-25 05:41] LABS: BUN (Urea Nitrogen) 43 mg/dL (9.8-20.1); Calc. Creatinine Clearance 59 mL/min (70-130); Calcium 10.4 mg/dL (7.8-10.44); Estimated GFR-MDRD 38
[2017-08-25 05:51] LABS: Anion Gap 18 mmol/L (10-20); Chloride 85 mmol/L (98-107)
[2017-08-25 05:53] LABS: Carbon Dioxide 42 mmol/L (23-31)
[2017-08-25] MEDS: Ascorbic Acid 500 mg Chewable Tablet PO SCH (08:11)
[2017-08-25] MEDS: Gabapentin 100 MG CAP PO SCH ×2 (08:12→21:00)
[2017-08-25] MEDS: Fluticasone Propionate Nasal Spray 16 gm Bottle NASAL SCH (08:12)
[2017-08-25] MEDS: Carvedilol 6.25 MG TAB PO SCH ×3 (08:13→17:30)
[2017-08-25] MEDS: Allopurinol 100 MG TAB PO SCH (08:14)
[2017-08-25] MEDS: traMADol HCl 50 MG TAB PO PRN ×3 (08:14→22:24)
[2017-08-25] MEDS: Amlodipine 5 MG TAB PO SCH (08:15)
[2017-08-25] MEDS: Docusate 100 MG CAP PO SCH ×2 (08:15→21:00)
[2017-08-25] MEDS: Acetaminophen 500 MG TAB PO PRN ×3 (08:15→22:25)
--- NOTE | 2017-08-25 08:28 | PRG ---
DATE OF SERVICE: 08/25/2017 SUBJECTIVE: Ms. Trinidad is doing better. She feels better. She still requires oxygen, but she is not dyspneic. No chest pain. PHYSICAL EXAMINATION: VITAL SIGNS: Blood pressure 140/80, although earlier it was 170/80, pulse 64, it is regular. LUNGS: Clear, there is still some mild expiratory wheezing. CARDIAC: Normal S1, normal S2. There is no murmur, rub or gallop. ABDOMEN: Soft, nontender. EXTREMITIES: Only mild edema now. ASSESSMENT: 1. Diastolic heart failure, amazingly the patient is now down about 80 pounds from admission. 2. Metabolic alkalosis with CO2 42, it was 46 yesterday. 3. Obesity. 4. Renal failure and amazingly continues to improve with diuresis with the estimated GFR now 38. PLAN: 1. One dose of Diamox. 2. Reduce potassium. 3. Reduce beta kim with history of wheezing. 4. Add low dose angiotensin receptor kim and monitor kidney function.
[2017-08-25] MEDS ORDERED: acetaZOLAMIDE Sodium 500 MG, Admixture Fee 1 EACH in Sodium Chloride 0.9% 50 ML IVPB SCH (09:00)
[2017-08-25] MEDS: Losartan Potassium 25 MG TAB PO SCH (09:31)
--- NOTE | 2017-08-25 10:34 | PDOC.PN ---
- Subjective Encounter Start Date: 08/25/17 Encounter Start Time: 10:33 Patient seen and examined. No new complaints. No overnight events - Objective MAR Reviewed: Yes Vital Signs & Weight: Vital Signs (12 hours) Temp Pulse Resp BP BP Pulse Ox 08/25/17 09:19 141/81 H 08/25/17 08:15 141/81 H 08/25/17 08:14 141/81 H 08/25/17 08:13 141/81 H 08/25/17 08:00 98.9 F 65 17 97 08/25/17 07:13 98.9 F 65 17 171/81 H 99 08/25/17 03:38 97.9 F 68 16 132/74 97 08/25/17 03:33 98 08/25/17 00:00 67 08/24/17 23:25 98.4 F 67 15 147/78 H 97 08/24/17 23:17 97 Weight Admit Weight 338 lb 9.6 oz Weight 253 lb 3.2 oz Most Recent Monitor Data Heart Rate from ECG 100 NIBP 146/83 NIBP BP-Mean 107 Respiration from ECG 26 SpO2 94 I&O: 08/24/17 08/25/17 08/26/17 06:59 06:59 06:59 Intake Total 300 235 Output Total 1000 Balance 300 -765 Result Diagrams: 08/25/17 05:06 08/25/17 05:06 Phys Exam - Physical Examination Constitutional: NAD HEENT: PERRLA Neck: no JVD Respiratory: no rales Cardiovascular: no significant murmur Gastrointestinal: no distention Musculoskeletal: pulses present, edema present Neurological: normal sensation Psychiatric: A&O x 3 Dx/Plan (1) Acute diastolic CHF (congestive heart failure) Code(s): I50.31 - ACUTE DIASTOLIC (CONGESTIVE) HEART FAILURE Status: Acute Comment: ef 55% (2) UTI (urinary tract infection) Status: Acute Comment: due to proteus mirabilus on rocephin (3) Hypokalemia Code(s): E87.6 - HYPOKALEMIA Status: Acute (4) Dyslipidemia Code(s): E78.5 - HYPERLIPIDEMIA, UNSPECIFIED Status: Chronic (5) Hypertension Code(s): I10 - ESSENTIAL (PRIMARY) HYPERTENSION Status: Chronic Qualifiers: Hypertension type: essential hypertension (6) Morbid obesity with BMI of 45.0-49.9, adult Code(s): E66.01 - MORBID (SEVERE) OBESITY DUE TO EXCESS CALORIES; Z68.42 - BODY MASS INDEX (BMI) 45.0-49.9, ADULT Status: Chronic (7) FAUSTINO (obstructive sleep apnea) Code(s): G47.33 - OBSTRUCTIVE SLEEP APNEA (ADULT) (PEDIATRIC) Status: Chronic Comment: on bipap (8) Physical deconditioning Code(s): R53.81 - OTHER MALAISE Status: Chronic (9) Acute respiratory failure Code(s): J96.00 - ACUTE RESPIRATORY FAILURE, UNSP W HYPOXIA OR HYPERCAPNIA Status: Acute Comment: possibly due to pnuemonitis and thick secretions which may cause mucus plugging add mucolytics, zithromax. steroids - Plan * diamox one dose * decrease lasix * f/u card, renal , pulm plan
[2017-08-25] MEDS: Azithromycin 250 MG in Sodium Chloride 0.9% 250 ML 250 ML IVPB SCH (10:44)
[2017-08-25] MEDS: cefTRIAXone\\ROCEPHIN 1 GM, Syringe 0.4 ML in Sterile Water 9.6 ML SLOW IVP SCH (13:08)
--- NOTE | 2017-08-25 16:02 | PRG ---
DATE OF SERVICE: 08/25/2017 SUBJECTIVE: Ms. Trinidad's films were reviewed from Friday on. She appeared to have left lung atele ctasis on Friday. When she was taken off BiPAP Friday morning, she became distressed and was placed back on BiPAP. This lung is now aerated. She continues to diurese. Intakes and outputs reported as positive 300, but the urine output for the last 24 hours is not randall rded. OBJECTIVE: LUNGS: Remarkable for bilateral equal breath sounds. HEART: Regular rhythm. ABDOMEN: Soft. LABORATORY DATA: White count is 8.8, hemoglobin 11.9 and platelets 225. Sodium 141, potassium 4.1, chloride 85, bicarb 42, BUN 43 and creatinine 1.35. IMPRESSION: 1. Metabolic alkalosis secondary to diuresis. 2. Left lung atelectasis. I do not feel she had a pneumonia. Antibiotics can be simplified. We will continue to follow.
[2017-08-25] MEDS: Warfarin Sodium 3 MG TAB PO SCH (17:30)
--- NOTE | 2017-08-25 17:38 | PRG ---
DATE OF SERVICE: 08/25/2017 SUBJECTIVE: Patient was seen and examined at bedside and overnight events noted. Patient denies an y shortness of breath or chest pain or palpitation. No history of nausea or vomiting or diarrhea or fever or chills or cramps. OBJECTIVE: GENERAL: This is a morbidly obese white female in no apparent distress. VITAL SIGNS: Temperature 98.3, pulse 60, respiratory rate 20, blood pressure 137/79. HEENT: Atraumatic, normocephalic. Oral mucosa is moist. NECK: Supple. CARDIOVASCULAR: S1, S2 heard. Rate and rhythm regular. RESPIRATORY: Clear to auscultation. GASTROINTESTINAL: Abdomen is soft. MUSCULOSKELETAL: No tenderness, no edema. DERMATOLOGIC: No skin rash. NEUROLOGIC: Alert and awake and oriented x3. No focal neurologic deficits. Moving all the extremi ties. PSYCHIATRIC: Mood and affect normal. LABORATORY DATA: Potassium is 4.1, BUN is 43, creatinine is 1.3, bicarbonate is 42. ASSESSMENT AND PLAN: 1. Acute kidney injury on chronic kidney disease. Renal function is stable. 2. Cardiorenal syndrome. 3. Hypokalemia, better. 4. Alkalosis secondary to diuresis. 5. Hyponatremia. 6. Azotemia. Overall, labs are looking better. Lasix on hold as well as metolazone, monitor closely. Follow up with Cardiology for optimization of cardiac medications. We will follow.
[2017-08-25] MEDS: Estradiol 0.01% Vaginal Cream 42.5 gm Tube VAG SCH (17:41)
[2017-08-25] MEDS: Cefdinir 300 MG CAP PO SCH (21:00)
--- NOTE | 2017-08-26 00:05 | PRG ---
DATE OF SERVICE: 08/24/2017 SUBJECTIVE: Patient was seen and examined at bedside and overnight events noted. Patient denies an y shortness of breath or chest pain or palpitation. No history of nausea or vomiting or diarrhea or fever or chills or cramps. OBJECTIVE: GENERAL: This is a morbidly obese white female in no apparent distress. VITAL SIGNS: Temperature 97.4. Pulse 85. Respiratory rate . Blood pressure 141/81. HEENT: Atraumatic and normocephalic. Oral mucosa is moist. NECK: Supple. CARDIOVASCULAR: S1, S2 heard. Rate and rhythm regular. RESPIRATORY: Clear to auscultation. GASTROINTESTINAL: Abdomen is soft. MUSCULOSKELETAL: No tenderness. No edema. DERMATOLOGIC: No skin rash. NEUROLOGIC: Alert and awake and oriented x3. No focal neurologic deficits. Moving all the extremi ties. PSYCHIATRIC: Mood and affect normal. LABORATORY DATA: Potassium is 3.7, BUN 38, creatinine was 1.4. ASSESSMENT AND PLAN: 1. Acute kidney injury on chronic kidney disease stage 3. Renal function is stable and getting bet ter. 2. Alkalosis is getting better. We will reduce the diuretic dose. 3. Hypokalemia. Replace and monitor. 4. Cardiorenal syndrome. 5. Azotemia. 6. Overall, plan is to hold diuretics and monitor renal function. Follow with Cardiology for opti mization of cardiac medications.
[2017-08-26 04:14] LABS: #Monocytes 0.6 thou/uL (0.11-0.59); #Neutrophils 5.6 thou/uL (1.40-6.50); %Basophils 0.3 % (0.0-1.0); %Eosinophils 0.4 % (0.0-10.0); %Lymphocytes 14.1 % (21.0-51.0); %Monocytes 7.6 % (0.0-10.0); Hematocrit 38.5 % (36.0-47.0); Mean Platelet Volume 8.3 fL (7.4-10.4); White Blood Cell (WBC) Count 7.2 thou/uL (4.8-10.8)
[2017-08-26 04:16] LABS: Prothrombin Time 26.8 SEC (12.0-14.7)
[2017-08-26 04:39] LABS: BUN (Urea Nitrogen) 49 mg/dL (9.8-20.1); Calc. Creatinine Clearance 57 mL/min (70-130); Calcium 10.2 mg/dL (7.8-10.44); Estimated GFR-MDRD 36
[2017-08-26 04:49] LABS: Anion Gap 18 mmol/L (10-20); Carbon Dioxide 39 mmol/L (23-31); Chloride 89 mmol/L (98-107)
--- NOTE | 2017-08-26 08:29 | PRG ---
DATE OF SERVICE: 08/26/2017 HISTORY: Ms. Trinidad is breathing better. She had a good night. No chest pain or pressure. PHYSICAL EXAMINATION: VITAL SIGNS: Her blood pressure is improved 129/59, pulse 55, it is sinus on the monitor. LUNGS: Clear anterolaterally. CARDIAC: Normal S1, S2. ABDOMEN: Soft, nontender. EXTREMITIES: There is lymphedema only mild edema, otherwise. PERTINENT LABORATORY: Hemoglobin is 11.4, CO2 went from 46 down to 39, potassium 3.7. ASSESSMENT: 1. Diastolic congestive heart failure, improving, still with some heart failure on x-ray in the fif th better. 2. Hypertension, improved. 3. Renal failure, stable, stage 3, estimated GFR is 36. PLAN: 1. Give her 1 more dose of Diamox. 2. Will give one more dose of furosemide tonight. 3. It is okay with me to move to telemetry.
[2017-08-26] MEDS ORDERED: acetaZOLAMIDE Sodium 500 MG, Admixture Fee 1 EACH in Sodium Chloride 0.9% 50 ML IVPB SCH (09:00)
--- NOTE | 2017-08-26 09:16 | PRG ---
Patient Name: MARC KAYE Date of service: 08/26/2017 Subjective: Patient was seen and examined at bedside and overnight events noted. Patient denies any shortness of breath or chest pain or palpitation. No history of nausea or vomiting or diarrhea or fever or chills or cramps. Objective: General: This is a morbidly obese white female in no apparent distress. Vital signs: Temperature 98.0, pulse 60, respirations 18, blood pressure 113/59. HEENT: Atraumatic, normocephalic. Oral mucosa is moist. Neck: Supple. Cardiovascular: S1 S2 heard. Rate and rhythm regular. Respiratory: Clear to auscultation. Gastrointestinal: Abdomen is soft. Musculoskeletal: No tenderness. No edema. Dermatologic: No skin rash. Neurologic: Alert and awake and oriented X3. No focal neurologic deficits. Moving all the extremities. Psychiatric: Mood and affect normal. LABORATORY DATA: Potassium is 3.7, BUN 49, creatinine 1.4. ASSESSMENT AND PLAN: 1. Acute kidney injury on chronic kidney disease. Renal function is stable. 2. Cardiorenal syndrome on Lasix. 3. Metabolic alkalosis, started on Diamox. 4. Hypokalemia, stable. 5. Hyponatremia. 6. Azotemia. Overall, renal function is stable on Diamox and Lasix. Follow with Cardiology.
[2017-08-26] MEDS: traMADol HCl 50 MG TAB PO PRN ×2 (09:50→21:22)
[2017-08-26] MEDS: Losartan Potassium 25 MG TAB PO SCH (09:51)
[2017-08-26] MEDS: Acetaminophen 500 MG TAB PO PRN ×2 (09:51→21:23)
[2017-08-26] MEDS: Gabapentin 100 MG CAP PO SCH ×2 (09:53→21:21)
[2017-08-26] MEDS: Amlodipine 5 MG TAB PO SCH (09:54)
[2017-08-26] MEDS: predniSONE 20 MG TAB PO SCH (09:54)
[2017-08-26] MEDS: Ascorbic Acid 500 mg Chewable Tablet PO SCH (09:55)
[2017-08-26] MEDS: Cefdinir 300 MG CAP PO SCH ×2 (09:55→21:22)
[2017-08-26] MEDS: Docusate 100 MG CAP PO SCH ×2 (09:55→21:21)
[2017-08-26] MEDS: Allopurinol 100 MG TAB PO SCH (09:58)
[2017-08-26] MEDS: Fluticasone Propionate Nasal Spray 16 gm Bottle NASAL SCH (10:03)
[2017-08-26] MEDS: Carvedilol 6.25 MG TAB PO SCH ×2 (10:22→16:52)
--- NOTE | 2017-08-26 11:41 | PDOC.PN ---
- Subjective Encounter Start Date: 08/26/17 Encounter Start Time: 11:39 Patient seen and examined. No new complaints. No overnight events breathing better - Objective MAR Reviewed: Yes Vital Signs & Weight: Vital Signs (12 hours) Temp Pulse Resp BP BP Pulse Ox 08/26/17 10:22 129/67 08/26/17 10:04 129/67 08/26/17 09:54 55 L 08/26/17 08:00 97.9 F 55 L 12 130/58 L 93 L 08/26/17 06:05 55 L 08/26/17 05:30 54 L 08/26/17 04:00 98.0 F 56 L 20 129/59 L 97 08/26/17 00:00 97.9 F 58 L 18 93 L Weight Admit Weight 338 lb 9.6 oz Weight 251 lb 6.4 oz Most Recent Monitor Data Heart Rate from ECG 100 NIBP 146/83 NIBP BP-Mean 107 Respiration from ECG 26 SpO2 94 I&O: 08/25/17 08/26/17 08/27/17 06:59 06:59 06:59 Intake Total 300 1425 Output Total 2920 Balance 300 -1495 Result Diagrams: 08/26/17 03:46 08/26/17 03:46 Phys Exam - Physical Examination Constitutional: NAD HEENT: PERRLA Neck: no JVD decreased bs at bases Cardiovascular: no significant murmur Gastrointestinal: non-tender Musculoskeletal: edema present Neurological: moves all 4 limbs Psychiatric: A&O x 3 Dx/Plan (1) Acute diastolic CHF (congestive heart failure) Code(s): I50.31 - ACUTE DIASTOLIC (CONGESTIVE) HEART FAILURE Status: Acute Comment: ef 55% (2) UTI (urinary tract infection) Status: Acute Comment: due to proteus mirabilus on rocephin (3) Hypokalemia Code(s): E87.6 - HYPOKALEMIA Status: Acute (4) Dyslipidemia Code(s): E78.5 - HYPERLIPIDEMIA, UNSPECIFIED Status: Chronic (5) Hypertension Code(s): I10 - ESSENTIAL (PRIMARY) HYPERTENSION Status: Chronic Qualifiers: Hypertension type: essential hypertension (6) Morbid obesity with BMI of 45.0-49.9, adult Code(s): E66.01 - MORBID (SEVERE) OBESITY DUE TO EXCESS CALORIES; Z68.42 - BODY MASS INDEX (BMI) 45.0-49.9, ADULT Status: Chronic (7) FAUSTINO (obstructive sleep apnea) Code(s): G47.33 - OBSTRUCTIVE SLEEP APNEA (ADULT) (PEDIATRIC) Status: Chronic Comment: on bipap (8) Physical deconditioning Code(s): R53.81 - OTHER MALAISE Status: Chronic (9) Acute respiratory failure Code(s): J96.00 - ACUTE RESPIRATORY FAILURE, UNSP W HYPOXIA OR HYPERCAPNIA Status: Acute Comment: possibly due to pnuemonitis and thick secretions which may cause mucus plugging add mucolytics, zithromax. steroids (10) Metabolic alkalosis Code(s): E87.3 - ALKALOSIS Status: Acute Comment: one dose of diamox - Plan * doing better * f/u card plan for diuresis * f/u renal plan * f/u pulm plan for mrsa in sputum
[2017-08-26] MEDS ORDERED: acetaZOLAMIDE Sodium 500 MG in Sodium Chloride 0.9% 50 ML IVPB SCH (12:00)
--- NOTE | 2017-08-26 13:07 | PRG ---
DATE OF SERVICE: 08/26/2017 Ms. Trinidad has no complaints. She is sitting in the chair, eating lunch. Intake and output is negative 1495. PHYSICAL EXAMINATION: VITAL SIGNS: She is afebrile, heart rate 63, respiratory rate is 18, oximetry is 96 on 2 liters, bl ood pressure 132/65. LUNGS: She has equal breath sounds bilaterally. LABORATORY: White count 7.2, hemoglobin 11.4, platelets 199. Sodium 142, potassium 3.7, chloride 89, bicarbonate 39, BUN 49, creatinine 1.4. IMPRESSION: 1. Anasarca, improving. 2. Left lung atelectasis, most likely secondary to an ineffective cough. We will repeat a chest radiograph tomorrow, but clinically this appears to be improved.
--- NOTE | 2017-08-26 14:05 | RAD ---
RADIOGRAPH CHEST 1 VIEW: Date: 08-26-17 Time: 12:08 p.m. HISTORY: 81-year-old female with atelectasis. COMPARISON: 08-24-17 FINDINGS: There is cardiomegaly. There are bilateral pleural effusions. There is mildly increased attenuation at the right lung base. There is dense opacification of the retrocardiac portion of left lower lobe. The lung apices are grossly clear. No pneumothorax. Allowing for slight positional differences, the re is probably no significant interval change. IMPRESSION: 1. Cardiomegaly. 2. Bilateral pleural effusions. 3. Airspace densities in the bilateral lower lobes, left greater than right. 4. No major interval change since two days ago. KOBI POS: MAVERICK
[2017-08-26] MEDS: Warfarin Sodium 3 MG TAB PO SCH (16:53)
[2017-08-26] MEDS ORDERED: Furosemide 20 MG/2 ML VIAL SLOW IVP SCH (20:00)
[2017-08-27 06:27] LABS: #Eosinphils 0.1 thou/uL (0.0-0.7); #Lymphocytes 0.9 thou/uL (1.20-3.40); #Monocytes 0.6 thou/uL (0.11-0.59); #Neutrophils 5.3 thou/uL (1.40-6.50); %Basophils 0.2 % (0.0-1.0); %Eosinophils 0.8 % (0.0-10.0); %Lymphocytes 13.1 % (21.0-51.0); %Monocytes 8.4 % (0.0-10.0); Hematocrit 41.9 % (36.0-47.0); Mean Platelet Volume 8.9 fL (7.4-10.4); Red Blood Cell (RBC) Count 4.21 mill/uL (4.20-5.40); White Blood Cell (WBC) Count 6.9 thou/uL (4.8-10.8)
[2017-08-27 06:28] LABS: Prothrombin Time 26.7 SEC (12.0-14.7)
[2017-08-27 06:34] LABS: BUN (Urea Nitrogen) 52 mg/dL (9.8-20.1); Calc. Creatinine Clearance 53 mL/min (70-130); Calcium 9.9 mg/dL (7.8-10.44); Estimated GFR-MDRD 33
[2017-08-27 06:43] LABS: Anion Gap 15 mmol/L (10-20); Carbon Dioxide 40 mmol/L (23-31); Chloride 91 mmol/L (98-107)
[2017-08-27] MEDS ORDERED: acetaZOLAMIDE Sodium 500 mg Vial IVP SCH (09:00)
[2017-08-27] MEDS: Acetaminophen 500 MG TAB PO PRN ×2 (09:29→22:03)
[2017-08-27] MEDS: traMADol HCl 50 MG TAB PO PRN ×2 (09:29→22:03)
[2017-08-27] MEDS: Allopurinol 100 MG TAB PO SCH (09:35)
[2017-08-27] MEDS: Carvedilol 6.25 MG TAB PO SCH ×2 (09:35→16:32)
[2017-08-27] MEDS: Docusate 100 MG CAP PO SCH ×2 (09:36→22:07)
[2017-08-27] MEDS: Cefdinir 300 MG CAP PO SCH ×2 (09:38→22:03)
[2017-08-27] MEDS: Losartan Potassium 25 MG TAB PO SCH (09:39)
[2017-08-27] MEDS: predniSONE 20 MG TAB PO SCH (09:42)
[2017-08-27] MEDS: Gabapentin 100 MG CAP PO SCH ×2 (09:42→22:03)
[2017-08-27] MEDS: Ascorbic Acid 500 mg Chewable Tablet PO SCH (09:42)
[2017-08-27] MEDS: Sterile Water 10 ML VIAL FS SCH (09:44)
[2017-08-27] MEDS: Fluticasone Propionate Nasal Spray 16 gm Bottle NASAL SCH (09:47)
--- NOTE | 2017-08-27 12:22 | PRG ---
DATE OF SERVICE: 08/27/2017 SUBJECTIVE: Ms. Trinidad is feeling better. She is up in the chair. No chest pain or pressure. PHYSICAL EXAMINATION: VITAL SIGNS: Blood pressure 138/58, pulse 60. LUNGS: Clear. CARDIAC: Normal S1, S2. ABDOMEN: Soft, nontender. EXTREMITIES: No edema. PERTINENT LABORATORY DATA: Creatinine is up to 1.5. ASSESSMENT: 1. Hypertension, improved. 2. Diastolic heart failure, improved. 3. Renal function is slightly worse. PLAN: 1. Discontinue diuretics at this point. 2. Continue to follow base met. If her creatinine increases, may have to stop the losartan. 3. Continues to lose weight, now down to 88 pounds.
--- NOTE | 2017-08-27 12:56 | PDOC.PN ---
- Subjective Encounter Start Date: 08/27/17 Encounter Start Time: 09:40 Pt seen for followup re: acute on chronic diastolic CHF. Pt denies chest pain, shortness of breath, fevers or chills. - Objective MAR Reviewed: Yes Vital Signs & Weight: Vital Signs (12 hours) Temp Pulse Resp BP BP Pulse Ox 08/27/17 12:00 97.4 F L 59 L 20 137/68 95 08/27/17 09:51 138/58 L 08/27/17 09:35 133/68 08/27/17 07:00 98.4 F 54 L 12 158/78 H 97 08/27/17 04:00 97.5 F L 58 L 14 132/60 91 L Weight Admit Weight 338 lb 9.6 oz Weight 252 lb Most Recent Monitor Data Heart Rate from ECG 100 NIBP 146/83 NIBP BP-Mean 107 Respiration from ECG 26 SpO2 94 I&O: 08/26/17 08/27/17 08/28/17 06:59 06:59 06:59 Intake Total 1425 200 Output Total 2920 1175 Balance -1495 -975 Result Diagrams: 08/27/17 06:00 08/27/17 06:00 EKG Reviewed by me: Yes (Tele: NSR) Phys Exam - Physical Examination Morbid obesity HEENT: moist MMs, oral pharynx no lesions Neck: supple Respiratory: no wheezing, no rhonchi Bibasal crackles Cardiovascular: RRR Gastrointestinal: soft, non-tender Neurological: moves all 4 limbs Psychiatric: normal affect Dx/Plan (1) Acute diastolic CHF (congestive heart failure) Code(s): I50.31 - ACUTE DIASTOLIC (CONGESTIVE) HEART FAILURE Status: Acute Comment: ef 55% (2) UTI (urinary tract infection) Status: Acute Qualifiers: Urinary tract infection type: acute cystitis Hematuria presence: without hematuria Qualified Code(s): N30.00 - Acute cystitis without hematuria (3) Dyslipidemia Code(s): E78.5 - HYPERLIPIDEMIA, UNSPECIFIED Status: Chronic (4) Hypertension Code(s): I10 - ESSENTIAL (PRIMARY) HYPERTENSION Status: Chronic Qualifiers: Hypertension type: essential hypertension (5) Morbid obesity with BMI of 45.0-49.9, adult Code(s): E66.01 - MORBID (SEVERE) OBESITY DUE TO EXCESS CALORIES; Z68.42 - BODY MASS INDEX (BMI) 45.0-49.9, ADULT Status: Chronic (6) FAUSTINO (obstructive sleep apnea) Code(s): G47.33 - OBSTRUCTIVE SLEEP APNEA (ADULT) (PEDIATRIC) Status: Chronic - Plan continue antibiotics, PT/OT, out of bed/ambulate * . Continue cefdinir. Discussed with PCCM service, MRSA likely due to colonization. Mobilize pt. Review of Systems - Review of Systems Respiratory: negative: Cough, Dry, Shortness of Breath, Hemoptysis, SOB with Excertion, Pleuritic Pain, Sputum, Wheezing Cardiovascular: negative: Chest Pain, Palpitations, Orthopnea, Paroxysmal Noc. Dyspnea, Edema, Light Headedness - Medications/Allergies Allergies/Adverse Reactions: Allergies Allergy/AdvReac Type Severity Reaction Status Date / Time Penicillins Allergy Unknown Verified 12/02/16 01:41 Medications: Current Medications Acetaminophen (Tylenol) 500 mg PO Q6H PRN PRN Reason: Headache/Fever or Pain Last Admin: 08/27/17 09:29 Dose: 500 mg Allopurinol (Zyloprim) 100 mg PO DAILY [facility] Last Admin: 08/27/17 09:35 Dose: 100 mg Amlodipine Besylate (Norvasc) 5 mg PO DAILY [facility] Last Admin: 08/26/17 09:54 Dose: 5 mg Ascorbic Acid (Vitamin C) 1,000 mg PO DAILY [facility] Last Admin: 08/27/17 09:42 Dose: 1,000 mg Aspirin (Aspirin Chewable) 81 mg PO DAILY [facility] Last Admin: 08/27/17 09:36 Dose: 81 mg Benzonatate (Tessalon) 100 mg PO TID PRN PRN Reason: Cough Last Admin: 08/22/17 21:29 Dose: 100 mg Bisacodyl (Dulcolax) 10 mg [place] DAILYPRN PRN PRN Reason: Constipation Last Admin: 08/23/17 10:29 Dose: 10 mg Carvedilol (Coreg) 3.125 mg PO BID-[facility] Last Admin: 08/27/17 09:35 Dose: 3.125 mg Cefdinir (Omnicef) 300 mg PO BID [facility] Last Admin: 08/27/17 09:38 Dose: 300 mg Docusate Sodium (Colace) 100 mg PO BID [facility] Last Admin: 08/27/17 09:36 Dose: 100 mg Duloxetine HCl (Cymbalta) 30 mg PO DAILY [facility] Last Admin: 08/27/17 09:43 Dose: 30 mg Estradiol (Estrace 0.01% Vaginal Cream) 1 gm VAG Q2D [facility] Last Admin: 08/25/17 17:41 Dose: 1 gm Fluticasone Propionate (Flonase Nasal [place]) 0 gm NASAL DAILY [facility] Last Admin: 08/27/17 09:47 Dose: 2 spr Gabapentin (Neurontin) 100 mg PO BID [facility] Last Admin: 08/27/17 09:42 Dose: 100 mg Guaifenesin/Dextromethorphan (Robitussin Dm) 10 ml PO Q6H PRN PRN Reason: Cough Losartan Potassium (Cozaar) 50 mg PO DAILY [facility] Last Admin: 08/27/17 09:39 Dose: 50 mg Methyldopa (Aldomet) 250 mg PO BID [facility] Last Admin: 08/27/17 09:51 Dose: 250 mg Miscellaneous Medication (Pharmacy To Dose) 0 each PO ASDIR [facility] Oxybutynin Chloride (Ditropan) 5 mg PO TID PRN PRN Reason: Bladder Spasms Pantoprazole Sodium (Protonix) 40 mg PO DAILY [facility] Last Admin: 08/27/17 09:35 Dose: 40 mg Potassium Chloride (Klor-Con) 20 meq PO BID-[facility] Last Admin: 08/27/17 09:35 Dose: 20 meq Prednisone (Prednisone) 20 mg PO QAM-[facility] Last Admin: 08/27/17 09:42 Dose: 20 mg Sodium Chloride (Flush - Normal Saline) 10 ml IVF Q12HR [facility] Last Admin: 08/27/17 09:47 Dose: 10 ml Sodium Chloride (Flush - Normal Saline) 10 ml IVF PRN PRN PRN Reason: Saline Flush Last Admin: 08/25/17 13:09 Dose: 10 ml Sterile Water (Water For Injection) 5 ml FS DAILY [facility] Last Admin: 08/27/17 09:44 Dose: 5 ml Tramadol HCl (Ultram) 50 mg PO Q6H PRN PRN Reason: Pain Last Admin: 08/27/17 09:29 Dose: 50 mg Warfarin Sodium (Coumadin) 6 mg PO 1700 [facility] Last Admin: 08/26/17 16:53 Dose: 6 mg
[2017-08-27 14:38] VITALS: BMI 43.2
[2017-08-27] MEDS: Amlodipine 5 MG TAB PO SCH (16:25)
[2017-08-27] MEDS: Warfarin Sodium 3 MG TAB PO SCH (16:35)
[2017-08-27] MEDS: Estradiol 0.01% Vaginal Cream 42.5 gm Tube VAG SCH (16:35)
--- NOTE | 2017-08-27 16:36 | PRG ---
DATE OF SERVICE: 08/27/2017 SUBJECTIVE: Dodie Trinidad continues to diurese. She is negative 975 today. OBJECTIVE: Vital signs remained stable. She is afebrile. Heart rate is in the 50s, respiratory ra te is 18, oximetry is 98% on 2 liters. DIAGNOSTIC DATA: Chest radiograph shows bibasilar atelectatic changes. I do not feel that this is pneumonia. IMPRESSION: 1. Mucous plugging secondary to weakness. 2. Sleep apnea. Her daughter plans to get it downloaded from her CPAP from [facility] and bring it to me to make sure that her pressure settings are adequate. PLAN: We will continue to follow.
--- NOTE | 2017-08-27 19:09 | PRG ---
DATE OF SERVICE: 08/27/2017 SUBJECTIVE: Patient was seen and examined at bedside and overnight events noted. Patient denies an y shortness of breath or chest pain or palpitation. No history of nausea or vomiting or diarrhea or fever or chills or cramps. OBJECTIVE: GENERAL: This is a well-built female in apparent distress. VITAL SIGNS: Temperature 96.5, pulse 50, respiratory rate 18 and blood pressure 124/50. HEENT: Atraumatic and normocephalic. Oral mucosa is moist. NECK: Supple. CARDIOVASCULAR: S1 and S2 heard. Rate and rhythm regular. RESPIRATORY: Clear to auscultation. GASTROINTESTINAL: Abdomen is soft. MUSCULOSKELETAL: No tenderness. No edema. DERMATOLOGIC: No skin rash. NEUROLOGIC: Alert, awake and oriented x3. No focal neurologic deficits. Moving all the extremitie s. PSYCHIATRIC: Mood and affect normal. LABORATORY DATA: Potassium is 3.6, BUN is 52 and creatinine 1.5. ASSESSMENT AND PLAN: 1. Acute kidney injury on chronic kidney disease. Diuretics on hold. Follow up with Cardiology. 2. Cardiorenal syndrome as above. 3. Alkalosis is getting better. 4. Hypokalemia, replaced. 5. Hypernatremia. Overall, renal function is stable, slightly elevated. Agree with holding the diuretics for now and follow with Cardiology.
[2017-08-28 05:41] LABS: Prothrombin Time 27.9 SEC (12.0-14.7)
[2017-08-28 06:04] LABS: BUN (Urea Nitrogen) 51 mg/dL (9.8-20.1); Calc. Creatinine Clearance 58 mL/min (70-130); Calcium 9.9 mg/dL (7.8-10.44); Estimated GFR-MDRD 37
[2017-08-28 06:13] LABS: Anion Gap 19 mmol/L (10-20); Carbon Dioxide 35 mmol/L (23-31); Chloride 92 mmol/L (98-107)
[2017-08-28 06:23] LABS: #Eosinphils 0.1 thou/uL (0.0-0.7); #Lymphocytes 0.8 thou/uL (1.20-3.40); #Monocytes 0.5 thou/uL (0.11-0.59); #Neutrophils 5.7 thou/uL (1.40-6.50); %Eosinophils 0.9 % (0.0-10.0); %Lymphocytes 10.9 % (21.0-51.0); %Monocytes 7.3 % (0.0-10.0); Hematocrit 40.1 % (36.0-47.0); Mean Platelet Volume 8.8 fL (7.4-10.4); Red Blood Cell (RBC) Count 4.04 mill/uL (4.20-5.40); White Blood Cell (WBC) Count 7.1 thou/uL (4.8-10.8)
[2017-08-28] MEDS ORDERED: Losartan Potassium 25 MG TAB PO SCH (06:31)
[2017-08-28] MEDS: predniSONE 20 MG TAB PO SCH (08:18)
[2017-08-28] MEDS: Losartan Potassium 25 MG TAB PO SCH (08:26)
[2017-08-28] MEDS: Ascorbic Acid 500 mg Chewable Tablet PO SCH (08:26)
[2017-08-28] MEDS: Allopurinol 100 MG TAB PO SCH (08:26)
[2017-08-28] MEDS: Cefdinir 300 MG CAP PO SCH ×2 (08:27→20:21)
[2017-08-28] MEDS: Gabapentin 100 MG CAP PO SCH ×2 (08:27→20:21)
[2017-08-28] MEDS: Amlodipine 5 MG TAB PO SCH ×2 (08:28→08:33)
[2017-08-28] MEDS: Docusate 100 MG CAP PO SCH ×2 (08:30→20:21)
[2017-08-28] MEDS: Sterile Water 10 ML VIAL FS SCH (08:31)
[2017-08-28] MEDS: Fluticasone Propionate Nasal Spray 16 gm Bottle NASAL SCH (08:31)
[2017-08-28] MEDS: traMADol HCl 50 MG TAB PO PRN ×2 (08:44→20:21)
--- NOTE | 2017-08-28 08:49 | PRG ---
DATE OF SERVICE: 08/28/2017 SUBJECTIVE: Ms. Trinidad looks better today. She is breathing easily on nasal cannula. PHYSICAL EXAMINATION: VITAL SIGNS: Blood pressure is 122/71, pulse 66 it is regular, but last night her pulse was in the 40s. LUNGS: Clear. CARDIAC: Normal S1, S2. EXTREMITIES: She still has moderate edema. ASSESSMENT: 1. Diastolic congestive heart failure. 2. Sinus bradycardia. 3. Hypertension, improved. PLAN: 1. We will stop amlodipine. 2. Increase losartan as her creatinine is stable. 3. Stop carvedilol. 4. Give her another dose of diuretics tonight.
--- NOTE | 2017-08-28 12:40 | PDOC.PN ---
- Subjective Encounter Start Date: 08/28/17 Encounter Start Time: 08:20 Pt seen for followup re: CHF exacerbation. Feels well, no nausea or vomiting. No chest pain. - Objective MAR Reviewed: Yes Vital Signs & Weight: Vital Signs (12 hours) Temp Pulse Resp BP BP BP Pulse Ox 08/28/17 12:00 97.9 F 56 L 16 118/51 L 93 L 08/28/17 08:33 66 122/71 08/28/17 08:29 122/71 08/28/17 07:38 97.7 F 46 L 18 94 L 08/28/17 07:28 97.7 F 46 L 12 136/58 L 94 L 08/28/17 06:00 48 L 08/28/17 04:00 97.9 F 53 L 12 145/65 H 97 Weight Admit Weight 338 lb 9.6 oz Weight 251 lb 8 oz Most Recent Monitor Data Heart Rate from ECG 100 NIBP 146/83 NIBP BP-Mean 107 Respiration from ECG 26 SpO2 94 I&O: 08/27/17 08/28/17 08/29/17 06:59 06:59 06:59 Intake Total 200 1225 240 Output Total 1175 1600 Balance -975 -375 240 Result Diagrams: 08/30/17 04:50 09/01/17 05:45 EKG Reviewed by me: Yes (Tele: NSR) Phys Exam - Physical Examination Morbid obesity HEENT: moist MMs, oral pharynx no lesions Neck: supple Respiratory: clear to auscultation bilateral Cardiovascular: RRR Gastrointestinal: soft, non-tender Musculoskeletal: edema present Neurological: moves all 4 limbs Psychiatric: normal affect Skin: no rash Dx/Plan (1) Acute diastolic CHF (congestive heart failure) Code(s): I50.31 - ACUTE DIASTOLIC (CONGESTIVE) HEART FAILURE Status: Acute Comment: ef 55% (2) UTI (urinary tract infection) Status: Resolved Qualifiers: Urinary tract infection type: acute cystitis Hematuria presence: without hematuria Qualified Code(s): N30.00 - Acute cystitis without hematuria (3) Dyslipidemia Code(s): E78.5 - HYPERLIPIDEMIA, UNSPECIFIED Status: Chronic (4) Hypertension Code(s): I10 - ESSENTIAL (PRIMARY) HYPERTENSION Status: Chronic Qualifiers: Hypertension type: essential hypertension Qualified Code(s): I10 - Essential (primary) hypertension (5) Morbid obesity with BMI of 45.0-49.9, adult Code(s): E66.01 - MORBID (SEVERE) OBESITY DUE TO EXCESS CALORIES; Z68.42 - BODY MASS INDEX (BMI) 45.0-49.9, ADULT Status: Chronic (6) FAUSTINO (obstructive sleep apnea) Code(s): G47.33 - OBSTRUCTIVE SLEEP APNEA (ADULT) (PEDIATRIC) Status: Chronic - Plan continue antibiotics, PT/OT, out of bed/ambulate * . Continue Cefdinir. Mobilize patient. Continue diuretics. INR continues to be therapeutic. Review of Systems - Review of Systems Constitutional: negative: Fever, Chills, Sweats, Weakness, Malaise Respiratory: negative: Cough, Dry, Shortness of Breath, Hemoptysis, SOB with Excertion, Pleuritic Pain, Sputum, Wheezing Cardiovascular: negative: Chest Pain, Palpitations, Orthopnea, Paroxysmal Noc. Dyspnea, Edema, Light Headedness - Medications/Allergies Allergies/Adverse Reactions: Allergies Allergy/AdvReac Type Severity Reaction Status Date / Time Penicillins Allergy Unknown Verified 12/02/16 01:41 Medications: Current Medications Acetaminophen (Tylenol) 500 mg PO Q6H PRN PRN Reason: Headache/Fever or Pain Last Admin: 08/27/17 22:03 Dose: 500 mg Allopurinol (Zyloprim) 100 mg PO DAILY [facility] Last Admin: 08/28/17 08:26 Dose: 100 mg Ascorbic Acid (Vitamin C) 1,000 mg PO DAILY [facility] Last Admin: 08/28/17 08:26 Dose: 1,000 mg Aspirin (Aspirin Chewable) 81 mg PO DAILY [facility] Last Admin: 08/28/17 08:27 Dose: 81 mg Benzonatate (Tessalon) 100 mg PO TID PRN PRN Reason: Cough Last Admin: 08/22/17 21:29 Dose: 100 mg Bisacodyl (Dulcolax) 10 mg [place] DAILYPRN PRN PRN Reason: Constipation Last Admin: 08/23/17 10:29 Dose: 10 mg Cefdinir (Omnicef) 300 mg PO BID [facility] Last Admin: 08/28/17 08:27 Dose: 300 mg Docusate Sodium (Colace) 100 mg PO BID [facility] Last Admin: 08/28/17 08:30 Dose: Not Given Duloxetine HCl (Cymbalta) 30 mg PO DAILY [facility] Last Admin: 08/28/17 08:29 Dose: 30 mg Estradiol (Estrace 0.01% Vaginal Cream) 1 gm VAG Q2D [facility]PL[facility] Last Admin: 08/27/17 16:35 Dose: 1 gm Fluticasone Propionate (Flonase Nasal [place]) 0 gm NASAL DAILY [facility] Last Admin: 08/28/17 08:31 Dose: 2 spr Furosemide (Lasix) 40 mg SLOW IVP ONE REPLACED BY [facility] Stop: 08/28/17 21:00 Gabapentin (Neurontin) 100 mg PO BID [facility] Last Admin: 08/28/17 08:27 Dose: 100 mg Guaifenesin/Dextromethorphan (Robitussin Dm) 10 ml PO Q6H PRN PRN Reason: Cough Losartan Potassium (Cozaar) 100 mg PO DAILY [facility] Last Admin: 08/28/17 08:26 Dose: 100 mg Methyldopa (Aldomet) 250 mg PO BID [facility] Last Admin: 08/28/17 08:29 Dose: 250 mg Metolazone (Zaroxolyn) 2.5 mg PO ONE REPLACED BY [facility] Stop: 08/28/17 19:00 Miscellaneous Medication (Pharmacy To Dose) 0 each PO ASDIR REPLACED BY [facility] Oxybutynin Chloride (Ditropan) 5 mg PO TID PRN PRN Reason: Bladder Spasms Pantoprazole Sodium (Protonix) 40 mg PO DAILY [facility] Last Admin: 08/28/17 08:27 Dose: 40 mg Potassium Chloride (Klor-Con) 20 meq PO BID-[facility] Last Admin: 08/28/17 08:18 Dose: 20 meq Potassium Chloride (K-Dur) 40 meq PO ONE REPLACED BY [facility] Stop: 08/28/17 21:00 Prednisone (Prednisone) 20 mg PO QAM-WM REPLACED BY [facility] Last Admin: 08/28/17 08:18 Dose: 20 mg Sodium Chloride (Flush - Normal Saline) 10 ml IVF Q12HR REPLACED BY [facility] Last Admin: 08/28/17 08:27 Dose: 10 ml Sodium Chloride (Flush - Normal Saline) 10 ml IVF PRN PRN PRN Reason: Saline Flush Last Admin: 08/25/17 13:09 Dose: 10 ml Sterile Water (Water For Injection) 5 ml FS DAILY [facility] Last Admin: 08/28/17 08:31 Dose: Not Given Tramadol HCl (Ultram) 50 mg PO Q6H PRN PRN Reason: Pain Last Admin: 08/28/17 08:44 Dose: 50 mg Warfarin Sodium (Coumadin) 6 mg PO 1700 [facility] Last Admin: 08/27/17 16:35 Dose: 6 mg
--- NOTE | 2017-08-28 15:05 | PRG ---
DATE OF SERVICE: 08/28/2017 SUBJECTIVE: Ms. Trinidad's download was provided by her daughter. Her BiPAP settings were 16/11. S he has been on, I believe, 09/23 here. She is compliant averaging up to 8 or more hours with her CPA P. Her apnea hypopnea index was 5.1. OBJECTIVE: GENERAL: Today, she says she is feeling better. LUNGS: She has equal breath sounds. HEART: Regular rhythm. ABDOMEN: Soft. IMPRESSION: 1. Sleep apnea, compliant with therapy, benefiting from use. I have written a new prescription, fa xed to [facility], [place] for BiPAP. We will adjust BiPAP settings here to 16/11. 2. Diastolic dysfunction with chronic kidney disease and extreme volume overload. I am surprised t hat she continues to tolerate negative fluid balance. We will continue to follow with the other y sicians caring for him.
[2017-08-28] MEDS: Warfarin Sodium 3 MG TAB PO SCH (16:35)
[2017-08-28] MEDS ORDERED: Metolazone 2.5 MG TAB PO SCH (18:00)
[2017-08-28] MEDS ORDERED: Potassium Chloride 20 MEQ TAB PO SCH (20:00)
[2017-08-28] MEDS ORDERED: Furosemide 40 MG/4 ML VIAL SLOW IVP SCH (20:00)
[2017-08-28] MEDS: Acetaminophen 500 MG TAB PO PRN (20:23)
--- NOTE | 2017-08-28 20:30 | PRG ---
DATE OF SERVICE: 08/28/2017 SUBJECTIVE: The patient was seen and examined at bedside and overnight events noted. Patient [place] es any shortness of breath or chest pain or palpitation. No history of nausea or vomiting or diarrh ea or fever or chills or cramps. OBJECTIVE: GENERAL: This is an obese female in no apparent distress. VITAL SIGNS: Temperature 97.8, pulse 57, respiratory rate 18, blood pressure 120/54. HEENT: Atraumatic, normocephalic. Oral mucosa is moist. NECK: Supple. CARDIOVASCULAR: S1, S2 heard. Rate and rhythm regular. RESPIRATORY: Clear to auscultation. GASTROINTESTINAL: Abdomen is soft. MUSCULOSKELETAL: No tenderness. No edema. DERMATOLOGIC: No skin rash. NEUROLOGIC: Alert and awake and oriented x3. No focal neurologic deficits. Moving all the extremi ties. PSYCHIATRIC: Mood and affect normal. LABORATORY DATA: Potassium is 3.6, BUN is 51, creatinine is 1.3. ASSESSMENT AND PLAN: 1. Acute kidney injury on chronic kidney disease. Renal function is better after holding Lasix. 2. Cardiorenal syndrome. 3. Alkalosis, better. 4. Hypokalemia. 5. Hyponatremia, stable. Overall, renal function is better. Follow up with Cardiology.
[2017-08-29 04:42] LABS: Prothrombin Time 27.7 SEC (12.0-14.7)
[2017-08-29 04:54] LABS: BUN (Urea Nitrogen) 50 mg/dL (9.8-20.1); Calc. Creatinine Clearance 55 mL/min (70-130); Calcium 9.8 mg/dL (7.8-10.44); Estimated GFR-MDRD 35
[2017-08-29 05:00] LABS: #Eosinphils 0.1 thou/uL (0.0-0.7); #Lymphocytes 0.9 thou/uL (1.20-3.40); #Monocytes 0.5 thou/uL (0.11-0.59); #Neutrophils 6.2 thou/uL (1.40-6.50); %Eosinophils 0.7 % (0.0-10.0); %Monocytes 6.6 % (0.0-10.0); Hematocrit 38.9 % (36.0-47.0); Mean Platelet Volume 8.3 fL (7.4-10.4); Red Blood Cell (RBC) Count 3.95 mill/uL (4.20-5.40); White Blood Cell (WBC) Count 7.7 thou/uL (4.8-10.8)
[2017-08-29 05:04] LABS: Anion Gap 16 mmol/L (10-20); Carbon Dioxide 33 mmol/L (23-31); Chloride 95 mmol/L (98-107)
[2017-08-29] MEDS: predniSONE 20 MG TAB PO SCH (07:53)
[2017-08-29] MEDS: Ascorbic Acid 500 mg Chewable Tablet PO SCH (07:53)
[2017-08-29] MEDS: Losartan Potassium 25 MG TAB PO SCH (08:35)
[2017-08-29] MEDS: Fluticasone Propionate Nasal Spray 16 gm Bottle NASAL SCH (08:38)
[2017-08-29] MEDS: Docusate 100 MG CAP PO SCH ×2 (08:39→21:04)
[2017-08-29] MEDS: Gabapentin 100 MG CAP PO SCH ×2 (08:40→21:04)
[2017-08-29] MEDS: Cefdinir 300 MG CAP PO SCH ×2 (08:41→21:04)
[2017-08-29] MEDS: Allopurinol 100 MG TAB PO SCH (08:42)
[2017-08-29] MEDS: Sterile Water 10 ML VIAL FS SCH (08:43)
[2017-08-29] MEDS: traMADol HCl 50 MG TAB PO PRN ×3 (08:45→21:57)
[2017-08-29] MEDS: Acetaminophen 500 MG TAB PO PRN ×2 (08:45→21:57)
--- NOTE | 2017-08-29 12:28 | PRG ---
DATE OF SERVICE: 08/29/2017 SUBJECTIVE: Ms. Trinidad has no complaints. She almost is down 90 pounds from admission. OBJECTIVE: VITAL SIGNS: Blood pressure 140/63, heart rate 52, she is afebrile, respiratory rate 20. LUNGS: Clear. HEART: Regular rhythm. IMPRESSION: Volume overload secondary to chronic kidney disease, diastolic dysfunction, pulmonary h ypertension associated with sleep apnea. She is compliant with therapy and benefiting from its use. It is probably getting close to being as dry as we can get her. It is anticipated that she will be ready to go back to the assisted first part of next week.
--- NOTE | 2017-08-29 14:19 | PRG ---
DATE OF SERVICE: 08/29/2017 SUBJECTIVE: Ms. Trinidad is doing well this morning. No chest pain or pressure. PHYSICAL EXAMINATION: VITAL SIGNS: Blood pressure 128/57, pulse 60, it is regular. LUNGS: Clear. CARDIAC: Normal S1, normal S2. EXTREMITIES: Still has moderate edema. ASSESSMENT: 1. Diastolic heart failure. She has had 87 pounds of fluid taken off. 2. Renal failure, stable creatinine 1.44. PLAN: Give one further dose of metolazone and furosemide tonight, that was ordered last night, but she did not get it and to recheck tomorrow. ADDENDUM: Ms. Trinidad's daughter said that she did have some discomfort in left side of her chest a fter eating a couple of times, sounds like it could be anginal. She is already on medicine for refl ux. We will go ahead and add nitrates. Check cholesterol level and likely add a statin if her chol esterol is elevated.
--- NOTE | 2017-08-29 14:32 | PDOC.PN ---
- Subjective Encounter Start Date: 08/29/17 Encounter Start Time: 09:20 Pt seen for followup re: CHF exacerbation. Denies chest pain, shortness of breath, fevers or chills. - Objective MAR Reviewed: Yes Vital Signs & Weight: Vital Signs (12 hours) Temp Pulse Resp BP BP Pulse Ox 08/29/17 11:13 98.1 F 59 L 18 128/57 L 97 08/29/17 08:41 140/63 08/29/17 07:33 98.0 F 52 L 21 H 126/53 L 98 08/29/17 07:18 98.0 F 82 16 98 08/29/17 03:35 97.9 F 62 16 126/76 93 L Weight Admit Weight 338 lb 9.6 oz Weight 251 lb 12.8 oz Most Recent Monitor Data Heart Rate from ECG 100 NIBP 146/83 NIBP BP-Mean 107 Respiration from ECG 26 SpO2 94 I&O: 08/28/17 08/29/17 08/30/17 06:59 06:59 06:59 Intake Total 122 870 630 Output Total 1600 1775 Balance -375 -672 850 Result Diagrams: 08/29/17 04:00 08/29/17 04:00 EKG Reviewed by me: Yes (Tele: NSR) Phys Exam - Physical Examination Morbid obesity HEENT: moist MMs, sclera anicteric Neck: supple Respiratory: no wheezing, no rales, no rhonchi, clear to auscultation bilateral Cardiovascular: RRR Gastrointestinal: soft Musculoskeletal: edema present Neurological: moves all 4 limbs Lymphatic: no nodes Psychiatric: normal affect Dx/Plan (1) Acute diastolic CHF (congestive heart failure) Code(s): I50.31 - ACUTE DIASTOLIC (CONGESTIVE) HEART FAILURE Status: Acute Comment: ef 55% (2) UTI (urinary tract infection) Status: Acute Qualifiers: Urinary tract infection type: acute cystitis Hematuria presence: without hematuria Qualified Code(s): N30.00 - Acute cystitis without hematuria (3) Dyslipidemia Code(s): E78.5 - HYPERLIPIDEMIA, UNSPECIFIED Status: Chronic (4) Hypertension Code(s): I10 - ESSENTIAL (PRIMARY) HYPERTENSION Status: Chronic Qualifiers: Hypertension type: essential hypertension (5) Morbid obesity with BMI of 45.0-49.9, adult Code(s): E66.01 - MORBID (SEVERE) OBESITY DUE TO EXCESS CALORIES; Z68.42 - BODY MASS INDEX (BMI) 45.0-49.9, ADULT Status: Chronic (6) FAUSTINO (obstructive sleep apnea) Code(s): G47.33 - OBSTRUCTIVE SLEEP APNEA (ADULT) (PEDIATRIC) Status: Chronic - Plan PT/OT, out of bed/ambulate * . Continue furosemide. Ambulate patient. Continue cedinir. MRSA in sputum likely colonization, not being treated. Pt to go back to [place] on Friday if continuing to improve. Review of Systems - Review of Systems Respiratory: negative: Cough, Dry, Shortness of Breath, Hemoptysis, SOB with Excertion, Pleuritic Pain, Sputum, Wheezing Cardiovascular: negative: Chest Pain, Palpitations, Orthopnea, Paroxysmal Noc. Dyspnea, Edema, Light Headedness - Medications/Allergies Allergies/Adverse Reactions: Allergies Allergy/AdvReac Type Severity Reaction Status Date / Time Penicillins Allergy Unknown Verified 12/02/16 01:41 Medications: Current Medications Acetaminophen (Tylenol) 500 mg PO Q6H PRN PRN Reason: Headache/Fever or Pain Last Admin: 08/29/17 08:45 Dose: 500 mg Allopurinol (Zyloprim) 100 mg PO DAILY [facility] Last Admin: 08/29/17 08:42 Dose: 100 mg Ascorbic Acid (Vitamin C) 1,000 mg PO DAILY [facility] Last Admin: 08/29/17 07:53 Dose: 1,000 mg Aspirin (Aspirin Chewable) 81 mg PO DAILY [facility] Last Admin: 08/29/17 08:34 Dose: 81 mg Atorvastatin Calcium (Lipitor) 40 mg PO HS [facility] Benzonatate (Tessalon) 100 mg PO TID PRN PRN Reason: Cough Last Admin: 08/22/17 21:29 Dose: 100 mg Bisacodyl (Dulcolax) 10 mg [place] DAILYPRN PRN PRN Reason: Constipation Last Admin: 08/23/17 10:29 Dose: 10 mg Cefdinir (Omnicef) 300 mg PO BID [facility] Last Admin: 08/29/17 08:41 Dose: 300 mg Docusate Sodium (Colace) 100 mg PO BID [facility] Last Admin: 08/29/17 08:39 Dose: Not Given Duloxetine HCl (Cymbalta) 30 mg PO DAILY [facility] Last Admin: 08/29/17 08:40 Dose: 30 mg Estradiol (Estrace 0.01% Vaginal Cream) 1 gm VAG Q2D [facility] Last Admin: 08/27/17 16:35 Dose: 1 gm Fluticasone Propionate (Flonase Nasal [place]) 0 gm NASAL DAILY [facility] Last Admin: 08/29/17 08:38 Dose: 2 spr Furosemide (Lasix) 40 mg SLOW IVP 2000 [facility] Stop: 08/29/17 22:00 Gabapentin (Neurontin) 100 mg PO BID [facility] Last Admin: 08/29/17 08:40 Dose: 100 mg Guaifenesin/Dextromethorphan (Robitussin Dm) 10 ml PO Q6H PRN PRN Reason: Cough Isosorbide Mononitrate (Imdur Er) 30 mg PO DAILY [facility] Losartan Potassium (Cozaar) 100 mg PO DAILY [facility] Last Admin: 08/29/17 08:35 Dose: 100 mg Methyldopa (Aldomet) 250 mg PO BID [facility] Last Admin: 08/29/17 08:41 Dose: 250 mg Metolazone (Zaroxolyn) 2.5 mg PO 1600 [facility] Stop: 08/29/17 18:00 Miscellaneous Medication (Pharmacy To Dose) 0 each PO ASDIR [facility] Oxybutynin Chloride (Ditropan) 5 mg PO TID PRN PRN Reason: Bladder Spasms Pantoprazole Sodium (Protonix) 40 mg PO DAILY [facility] Last Admin: 08/29/17 08:34 Dose: 40 mg Potassium Chloride (Klor-Con) 20 meq PO BID[facility] Last Admin: 08/29/17 07:53 Dose: 20 meq Prednisone (Prednisone) 20 mg PO QAM-[facility] Last Admin: 08/29/17 07:53 Dose: 20 mg Sodium Chloride (Flush - Normal Saline) 10 ml IVF Q12HR [facility] Last Admin: 08/29/17 08:34 Dose: 10 ml Sodium Chloride (Flush - Normal Saline) 10 ml IVF PRN PRN PRN Reason: Saline Flush Last Admin: 08/25/17 13:09 Dose: 10 ml Sterile Water (Water For Injection) 5 ml FS DAILY [facility] Last Admin: 08/29/17 08:43 Dose: Not Given Tramadol HCl (Ultram) 50 mg PO Q6H PRN PRN Reason: Pain Last Admin: 08/29/17 08:45 Dose: 50 mg Warfarin Sodium (Coumadin) 6 mg PO 1700 [facility] Last Admin: 08/28/17 16:35 Dose: 6 mg
[2017-08-29] MEDS ORDERED: Metolazone 5 MG TAB PO SCH (16:00)
[2017-08-29] MEDS: Estradiol 0.01% Vaginal Cream 42.5 gm Tube VAG SCH (16:00)
[2017-08-29] MEDS: Warfarin Sodium 3 MG TAB PO SCH (16:50)
--- NOTE | 2017-08-29 19:47 | PRG ---
DATE OF SERVICE: 08/29/2017 SUBJECTIVE: Patient was seen and examined at bedside and overnight events noted. Patient denies an y shortness of breath or chest pain or palpitation. No history of nausea or vomiting or diarrhea or fever or chills or cramps. OBJECTIVE: GENERAL: This is a morbidly obese white female in no apparent distress. VITAL SIGNS: Temperature 97.6, pulse 60, respiratory rate 18 and blood pressure 137/70. HEENT: Atraumatic and normocephalic. Oral mucosa is moist. NECK: Supple. CARDIOVASCULAR: S1 and S2 heard. Rate and rhythm regular. RESPIRATORY: Clear to auscultation. GASTROINTESTINAL: Abdomen is soft. MUSCULOSKELETAL: No tenderness. No edema. DERMATOLOGIC: No skin rash. NEUROLOGIC: Alert, awake and oriented x3. No focal neurologic deficits. Moving all the extremitie s. PSYCHIATRIC: Mood and affect normal. LABORATORY DATA: Potassium is 3.7, BUN is 50 and creatinine is 1.4. ASSESSMENT AND PLAN: 1. Acute kidney injury on chronic kidney disease stage 3. Renal function is stable. 2. Cardiorenal syndrome. Follow up with Cardiology. 3. Alkalosis secondary to diuretics 4. Hypokalemia, replaced. 5. Hypernatremia. Follow up with Cardiology for diuretics and we will follow renal function.
[2017-08-29] MEDS ORDERED: Furosemide 40 MG/4 ML VIAL SLOW IVP SCH (20:00)
[2017-08-30 05:05] LABS: Prothrombin Time 25.5 SEC (12.0-14.7)
[2017-08-30 05:17] LABS: #Eosinphils 0.1 thou/uL (0.0-0.7); #Lymphocytes 0.9 thou/uL (1.20-3.40); #Monocytes 0.5 thou/uL (0.11-0.59); #Neutrophils 4.9 thou/uL (1.40-6.50); %Eosinophils 1.4 % (0.0-10.0); %Lymphocytes 14.7 % (21.0-51.0); %Monocytes 7.6 % (0.0-10.0); Hematocrit 39.3 % (36.0-47.0); Mean Platelet Volume 8.5 fL (7.4-10.4); Red Blood Cell (RBC) Count 3.94 mill/uL (4.20-5.40); White Blood Cell (WBC) Count 6.4 thou/uL (4.8-10.8)
[2017-08-30 05:22] LABS: BUN (Urea Nitrogen) 50 mg/dL (9.8-20.1); Calc. Creatinine Clearance 57 mL/min (70-130); Calcium 9.7 mg/dL (7.8-10.44); Cholesterol 151 mg/dl (< 200 Desired); Estimated GFR-MDRD 36; LDL Cholesterol, Calculated 92 mg/dL
[2017-08-30 05:31] LABS: Anion Gap 13 mmol/L (10-20); Carbon Dioxide 38 mmol/L (23-31); Chloride 95 mmol/L (98-107)
--- NOTE | 2017-08-30 06:53 | PRG ---
DATE OF SERVICE: 08/30/2017 SUBJECTIVE: Ms. Trinidad is resting comfortably this morning, she is doing well. No chest pain or pressure. She said she slept well. The patient put out 1600 mL last night after the furosemide dose. PHYSICAL EXAMINATION: VITAL SIGNS: Blood pressure is 129/56, pulse 58 and regular. LUNGS: Clear. CARDIAC: Normal S1, S2. 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 ASSESSMENT: 1. Diastolic heart failure, appears to be uvolemic, almost 90 pounds of fluid came off during this hospitalization. 2. Renal failure, stable with the GFR 36, which is stable. 3. Metabolic alkalosis from the diuretic. PLAN: 1. We will give 1 dose of Diamox IV. 2. Start oral furosemide tomorrow. 3. Change from losartan to Benicar stronger and EVELYN inhibitors, which she is tolerating. 4. Likely can reduce the potassium dose when she is discharged, she is still on 20 mEq twice a day.
[2017-08-30] MEDS ORDERED: Potassium Chloride 10 MEQ TAB PO SCH (08:15)
[2017-08-30] MEDS: Docusate 100 MG CAP PO SCH ×2 (08:29→20:37)
[2017-08-30] MEDS: Gabapentin 100 MG CAP PO SCH ×2 (08:29→20:38)
[2017-08-30] MEDS: predniSONE 20 MG TAB PO SCH (08:29)
[2017-08-30] MEDS: Allopurinol 100 MG TAB PO SCH (08:32)
[2017-08-30] MEDS: Ascorbic Acid 500 mg Chewable Tablet PO SCH (08:32)
[2017-08-30] MEDS: Cefdinir 300 MG CAP PO SCH ×2 (08:33→20:37)
[2017-08-30] MEDS: Fluticasone Propionate Nasal Spray 16 gm Bottle NASAL SCH (08:34)
[2017-08-30] MEDS ORDERED: acetaZOLAMIDE Sodium 500 MG in Sodium Chloride 0.9% 50 ML IVPB SCH (09:00)
[2017-08-30] MEDS: Sterile Water 10 ML VIAL FS SCH (09:00)
[2017-08-30] MEDS: traMADol HCl 50 MG TAB PO PRN ×3 (09:29→23:36)
[2017-08-30] MEDS: Acetaminophen 500 MG TAB PO PRN ×3 (09:29→23:36)
--- NOTE | 2017-08-30 12:08 | PDOC.PN ---
- Subjective Encounter Start Date: 08/30/17 Encounter Start Time: 09:20 Pt seen for followup re: CHF exacerbation. Denies chest pain, shortness of breath, fevers or chills. - Objective MAR Reviewed: Yes Vital Signs & Weight: Vital Signs (12 hours) Temp Pulse Resp BP BP BP Pulse Ox 08/30/17 11:12 97.6 F 62 20 127/57 L 94 L 08/30/17 08:30 98 F 55 L 16 97 08/30/17 08:29 133/51 L 08/30/17 07:10 98 F 55 L 16 133/51 L 97 08/30/17 06:36 58 L 08/30/17 03:20 98.0 F 58 L 18 129/56 L 97 08/30/17 01:00 60 95 Weight Admit Weight 338 lb 9.6 oz Weight 247 lb 1.6 oz Most Recent Monitor Data Heart Rate from ECG 100 NIBP 146/83 NIBP BP-Mean 107 Respiration from ECG 26 SpO2 94 I&O: 08/29/17 08/30/17 08/31/17 06:59 06:59 06:59 Intake Total 870 1000 300 Output Total 1775 2500 Balance -905 -1500 300 Result Diagrams: 08/30/17 04:50 08/30/17 04:50 EKG Reviewed by me: Yes (Tele: NSR) Phys Exam - Physical Examination Morbid obesity HEENT: moist MMs Neck: supple Respiratory: clear to auscultation bilateral Cardiovascular: RRR Gastrointestinal: soft, positive bowel sounds Musculoskeletal: edema present Neurological: moves all 4 limbs Psychiatric: normal affect Dx/Plan (1) Acute diastolic CHF (congestive heart failure) Code(s): I50.31 - ACUTE DIASTOLIC (CONGESTIVE) HEART FAILURE Status: Acute Comment: ef 55% (2) UTI (urinary tract infection) Status: Acute Qualifiers: Urinary tract infection type: acute cystitis Hematuria presence: without hematuria Qualified Code(s): N30.00 - Acute cystitis without hematuria (3) Dyslipidemia Code(s): E78.5 - HYPERLIPIDEMIA, UNSPECIFIED Status: Chronic (4) Hypertension Code(s): I10 - ESSENTIAL (PRIMARY) HYPERTENSION Status: Chronic Qualifiers: Hypertension type: essential hypertension (5) Morbid obesity with BMI of 45.0-49.9, adult Code(s): E66.01 - MORBID (SEVERE) OBESITY DUE TO EXCESS CALORIES; Z68.42 - BODY MASS INDEX (BMI) 45.0-49.9, ADULT Status: Chronic (6) FAUSTINO (obstructive sleep apnea) Code(s): G47.33 - OBSTRUCTIVE SLEEP APNEA (ADULT) (PEDIATRIC) Status: Chronic - Plan continue antibiotics, PT/OT, out of bed/ambulate * . Continue cefdinir. Ambulate pt. Continue diuretics. back to [facility] on Friday. Review of Systems - Review of Systems Respiratory: negative: Cough, Dry, Shortness of Breath, Hemoptysis, SOB with Excertion, Pleuritic Pain, Sputum, Wheezing Cardiovascular: negative: Chest Pain, Palpitations, Orthopnea, Paroxysmal Noc. Dyspnea, Edema, Light Headedness - Medications/Allergies Allergies/Adverse Reactions: Allergies Allergy/AdvReac Type Severity Reaction Status Date / Time Penicillins Allergy Unknown Verified 12/02/16 01:41 Medications: Current Medications Acetaminophen (Tylenol) 500 mg PO Q6H PRN PRN Reason: Headache/Fever or Pain Last Admin: 08/30/17 09:29 Dose: 500 mg Allopurinol (Zyloprim) 100 mg PO DAILY [facility] Last Admin: 08/30/17 08:32 Dose: 100 mg Ascorbic Acid (Vitamin C) 1,000 mg PO DAILY [facility] Last Admin: 08/30/17 08:32 Dose: 1,000 mg Aspirin (Aspirin Chewable) 81 mg PO DAILY [facility] Last Admin: 08/30/17 08:29 Dose: 81 mg Atorvastatin Calcium (Lipitor) 40 mg PO HS [facility] Benzonatate (Tessalon) 100 mg PO TID PRN PRN Reason: Cough Last Admin: 08/22/17 21:29 Dose: 100 mg Bisacodyl (Dulcolax) 10 mg [place] DAILYPRN PRN PRN Reason: Constipation Last Admin: 08/23/17 10:29 Dose: 10 mg Cefdinir (Omnicef) 300 mg PO BID [facility] Last Admin: 08/30/17 08:33 Dose: 300 mg Docusate Sodium (Colace) 100 mg PO BID [facility] Last Admin: 08/30/17 08:29 Dose: 100 mg Duloxetine HCl (Cymbalta) 30 mg PO DAILY [facility] Last Admin: 08/30/17 08:33 Dose: 30 mg Estradiol (Estrace 0.01% Vaginal Cream) 1 gm VAG Q2D [facility] Last Admin: 08/29/17 16:00 Dose: 1 gm Fluticasone Propionate (Flonase Nasal [place]) 0 gm NASAL DAILY [facility] Last Admin: 08/30/17 08:34 Dose: 1 spr Furosemide (Lasix) 40 mg PO 0900,1400 [facility] Gabapentin (Neurontin) 100 mg PO BID [facility] Last Admin: 08/30/17 08:29 Dose: 100 mg Guaifenesin/Dextromethorphan (Robitussin Dm) 10 ml PO Q6H PRN PRN Reason: Cough Acetazolamide Sodium 500 mg/ (Sodium Chloride) 50 mls @ 100 mls/hr IVPB DAILY [facility] Stop: 08/31/17 06:00 Last Admin: 08/30/17 08:35 Dose: 50 mls Isosorbide Mononitrate (Imdur Er) 30 mg PO DAILY [facility] Last Admin: 08/30/17 08:31 Dose: 30 mg Methyldopa (Aldomet) 250 mg PO BID [facility] Last Admin: 08/30/17 08:29 Dose: 250 mg Miscellaneous Medication (Pharmacy To Dose) 0 each PO ASDIR [facility] Olmesartan (Benicar) 40 mg PO DAILY [facility] Last Admin: 08/30/17 08:32 Dose: 40 mg Oxybutynin Chloride (Ditropan) 5 mg PO TID PRN PRN Reason: Bladder Spasms Pantoprazole Sodium (Protonix) 40 mg PO DAILY [facility] Last Admin: 08/30/17 08:29 Dose: 40 mg Potassium Chloride (Klor-Con 10) 10 meq PO BID-[facility] Prednisone (Prednisone) 20 mg PO QAM-[facility] Last Admin: 08/30/17 08:29 Dose: 20 mg Sodium Chloride (Flush - Normal Saline) 10 ml IVF Q12HR [facility] Last Admin: 08/30/17 09:29 Dose: 10 ml Sodium Chloride (Flush - Normal Saline) 10 ml IVF PRN PRN PRN Reason: Saline Flush Last Admin: 08/25/17 13:09 Dose: 10 ml Sterile Water (Water For Injection) 5 ml FS DAILY [facility] Last Admin: 08/30/17 09:00 Dose: Not Given Tramadol HCl (Ultram) 50 mg PO Q6H PRN PRN Reason: Pain Last Admin: 08/30/17 09:29 Dose: 50 mg Warfarin Sodium (Coumadin) 6 mg PO 1700 [facility] Last Admin: 08/29/17 16:50 Dose: 6 mg
--- NOTE | 2017-08-30 12:19 | EKG ---
Test Reason : SOB Blood Pressure : / mmHG Vent. Rate : 073 BPM Atrial Rate : 073 BPM P-R Int : 000 ms QRS Dur : 098 ms QT Int : 326 ms P-R-T Axes : 000 -50 127 degrees QTc Int : 359 ms Sinus rhythm with 1st degree A-V block Left axis deviation Low voltage QRS Possible Anterolateral infarct , age undetermined Abnormal ECG Confirmed by AD ALVAREZ MD ([id number]), senior editor ISIDRA PURDY ([id number]) on 08/30/2017 12:18:51 PM Referred By: Confirmed By:AD ALVAREZ MD
--- NOTE | 2017-08-30 13:21 | PRG ---
DATE OF SERVICE: 08/30/2017 SUBJECTIVE: Patient was seen and examined at bedside and overnight events noted. Patient denies an y shortness of breath or chest pain or palpitation. No history of nausea or vomiting or diarrhea or fever or chills or cramps. OBJECTIVE: GENERAL: Morbidly obese female, in no apparent distress. VITAL SIGNS: Temperature 98.7, pulse 68, respiratory rate 18, and blood pressure is 127/57. HEENT: Atraumatic, normocephalic. Oral mucosa is moist. Neck: Supple. Cardiovascular: S1, S2 heard. Rate and rhythm regular. Respiratory: Clear to auscultation. Gastrointestinal: Abdomen is soft. Musculoskeletal: No tenderness. No edema. Dermatologic: No skin rash. Neurologic: Alert and awake and oriented X3, No focal neurologic deficits. Moving all the extremiti es. Psychiatric: Mood and affect normal. LABORATORY DATA: Potassium is 4.0, BUN is 15, creatinine 1.3. ASSESSMENT AND PLAN: 1. Acute kidney injury, on chronic kidney disease, stage 3. Renal function is stable. 2. Cardiorenal syndrome, on diuretics. 3. Metabolic alkalosis, started on diet. 4. Hypokalemia, replaced and stable. Continue potassium. 5. Hyponatremia, better. Continue on diuretics per Cardiology recommendations.
--- NOTE | 2017-08-30 15:48 | PRG ---
DATE OF SERVICE: 08/30/2017 SERVICE: Pulmonary Medicine. INTERVAL HISTORY: The patient is doing really quite well from a respiratory standpoint. Her streng th is improving, albeit slowly. She denies any current fevers, chills, nausea or vomiting. She is breathing comfortably. She has no chest discomfort. There were no overnight events. PHYSICAL EXAMINATION: VITAL SIGNS: Afebrile, pulse 62, blood pressure 127/57, respirations 20, saturation 94% on 3 liters nasal cannula. GENERAL: The patient is awake, alert, in no apparent distress. LUNGS: Decent air entry, but there are still some crackles on inspiration and expiration, particula rly in the bibasilar regions in the posterior aspects of her lungs. No prolonged expiratory phase o r wheezing is appreciated. HEART: Normal rate, regular. ABDOMEN: Soft, nontender, nondistended. Bowel sounds positive. MUSCULOSKELETAL: No cyanosis or clubbing. No pitting in the bilateral lower extremities. NEUROLOGIC: Grossly nonfocal. LABORATORY DATA: WBC 6.4, hemoglobin 11.5, platelets 231,000 and also stable. INR 2.5. Creatinine is stable at 1.39 with BUN of 50. Basic metabolic profile is otherwise unremarkable and her sodium is 142. Sputum cultures growing MRSA. Urine culture is growing Proteus mirabilis and Enterococcus . ASSESSMENT: 1. Acute on chronic hypoxic respiratory failure. 2. Chronic kidney disease. 3. Acute on chronic diastolic heart failure. 4. Pulmonary hypertension, multifactorial. 5. Obstructive sleep apnea. 6. Morbid obesity. 7. Severe deconditioning. PLAN: We will continue to diurese the patient as needed to keep her close to euvolemia. Empiric an tibiotics as well as other supportive care will be continued. We will focus on mobilization efforts by continuing to get her into the neuro chair. She is anticipated to go back to nursing facility i n the first part of next week, but will need to continue working with the physical therapy at that l ocation. Pulmonary will continue to follow.
[2017-08-30] MEDS: Warfarin Sodium 3 MG TAB PO SCH (17:28)
[2017-08-30] MEDS: Potassium Chloride 10 MEQ TAB PO SCH (17:28)
[2017-08-30] MEDS: Atorvastatin Calcium 40 MG TAB PO SCH (20:37)
[2017-08-31 06:43] LABS: Prothrombin Time 27.2 SEC (12.0-14.7)
[2017-08-31 06:58] LABS: BUN (Urea Nitrogen) 46 mg/dL (9.8-20.1); Calc. Creatinine Clearance 62 mL/min (70-130); Calcium 9.7 mg/dL (7.8-10.44); Estimated GFR-MDRD 41
[2017-08-31 07:07] LABS: Anion Gap 12 mmol/L (10-20); Carbon Dioxide 39 mmol/L (23-31); Chloride 97 mmol/L (98-107)
[2017-08-31] MEDS: Ascorbic Acid 500 mg Chewable Tablet PO SCH (08:37)
[2017-08-31] MEDS: Potassium Chloride 10 MEQ TAB PO SCH ×2 (08:37→16:27)
[2017-08-31] MEDS: predniSONE 20 MG TAB PO SCH (08:37)
[2017-08-31] MEDS: Allopurinol 100 MG TAB PO SCH (08:37)
[2017-08-31] MEDS: Furosemide 40 MG TAB PO SCH ×2 (08:37→14:29)
[2017-08-31] MEDS: Cefdinir 300 MG CAP PO SCH ×2 (08:37→20:32)
[2017-08-31] MEDS: Gabapentin 100 MG CAP PO SCH ×2 (08:37→20:32)
[2017-08-31] MEDS: Docusate 100 MG CAP PO SCH ×2 (08:38→20:32)
[2017-08-31] MEDS: Sterile Water 10 ML VIAL FS SCH (08:39)
[2017-08-31] MEDS: Fluticasone Propionate Nasal Spray 16 gm Bottle NASAL SCH (08:39)
[2017-08-31] MEDS: traMADol HCl 50 MG TAB PO PRN ×3 (08:50→22:33)
[2017-08-31] MEDS: Acetaminophen 500 MG TAB PO PRN ×3 (08:51→22:33)
--- NOTE | 2017-08-31 11:45 | PDOC.PN ---
- Subjective Encounter Start Date: 08/31/17 Encounter Start Time: 11:00 Subjective: no sob, feels better - Objective MAR Reviewed: Yes Vital Signs & Weight: Vital Signs (12 hours) Temp Pulse Resp BP Pulse Ox 08/31/17 11:00 98.5 F 68 18 122/55 L 95 08/31/17 08:00 98 F 61 18 08/31/17 07:09 61 08/31/17 07:00 98.1 F 59 L 24 H 113/50 L 99 08/31/17 05:29 70 97 08/31/17 04:00 97.8 F 62 16 119/49 L 96 Weight Admit Weight 338 lb 9.6 oz Weight 248 lb 3.2 oz Most Recent Monitor Data Heart Rate from ECG 100 NIBP 146/83 NIBP BP-Mean 107 Respiration from ECG 26 SpO2 94 I&O: 08/30/17 08/31/17 09/01/17 06:59 06:59 06:59 Intake Total 1000 540 Output Total 2500 1925 Balance -1500 -1385 Result Diagrams: 08/30/17 04:50 08/31/17 05:55 Phys Exam - Physical Examination HEENT: PERRLA, moist MMs Neck: no JVD, supple Respiratory: no wheezing, no rales Cardiovascular: RRR, no significant murmur Gastrointestinal: soft, non-tender, positive bowel sounds Musculoskeletal: pulses present, edema present Neurological: non-focal, moves all 4 limbs Psychiatric: A&O x 3 Dx/Plan (1) Volume overload Code(s): E87.70 - FLUID OVERLOAD, UNSPECIFIED Status: Acute Comment: resolving (2) Acute exacerbation of CHF (congestive heart failure) Code(s): I50.9 - HEART FAILURE, UNSPECIFIED Status: Acute Qualifiers: Congestive heart failure type: diastolic Qualified Code(s): I50.33 - Acute on chronic diastolic (congestive) heart failure (3) UTI (urinary tract infection) Status: Acute Qualifiers: Urinary tract infection type: acute cystitis Hematuria presence: without hematuria Qualified Code(s): N30.00 - Acute cystitis without hematuria (4) Anasarca Code(s): R60.1 - GENERALIZED EDEMA Status: Resolved (5) Chronic acquired lymphedema Code(s): I89.0 - LYMPHEDEMA, NOT ELSEWHERE CLASSIFIED Status: Chronic (6) Dyslipidemia Code(s): E78.5 - HYPERLIPIDEMIA, UNSPECIFIED Status: Chronic (7) History of deep venous thrombosis or pulmonary embolus Code(s): HVQ5147 - Status: Chronic (8) Hypertension Code(s): I10 - ESSENTIAL (PRIMARY) HYPERTENSION Status: Chronic Qualifiers: Hypertension type: essential hypertension (9) Morbid obesity Code(s): E66.01 - MORBID (SEVERE) OBESITY DUE TO EXCESS CALORIES Status: Chronic (10) FAUSTINO (obstructive sleep apnea) Code(s): G47.33 - OBSTRUCTIVE SLEEP APNEA (ADULT) (PEDIATRIC) Status: Chronic (11) Physical deconditioning Code(s): R53.81 - OTHER MALAISE Status: Chronic - Plan pt has lost nearly 90lbs in 2 weeks with diuresis -: is on oral lasix and omnicef -: oral prednisone -: dc plan to snf in am -: inr is 2.4 on coumadin, is at her baseline functional status with being abl * . -e to stand at bedside and pivot to get into wheel chair. She has not ambulated in a long time per patient. Review of Systems - Medications/Allergies Allergies/Adverse Reactions: Allergies Allergy/AdvReac Type Severity Reaction Status Date / Time Penicillins Allergy Unknown Verified 12/02/16 01:41 Medications: Current Medications Acetaminophen (Tylenol) 500 mg PO Q6H PRN PRN Reason: Headache/Fever or Pain Last Admin: 08/31/17 08:51 Dose: 500 mg Allopurinol (Zyloprim) 100 mg PO DAILY [facility] Last Admin: 08/31/17 08:37 Dose: 100 mg Ascorbic Acid (Vitamin C) 1,000 mg PO DAILY [facility] Last Admin: 08/31/17 08:37 Dose: 1,000 mg Aspirin (Aspirin Chewable) 81 mg PO DAILY [facility] Last Admin: 08/31/17 08:36 Dose: 81 mg Atorvastatin Calcium (Lipitor) 40 mg PO HS [facility] Last Admin: 08/30/17 20:37 Dose: 40 mg Benzonatate (Tessalon) 100 mg PO TID PRN PRN Reason: Cough Last Admin: 08/22/17 21:29 Dose: 100 mg Bisacodyl (Dulcolax) 10 mg [place] DAILYPRN PRN PRN Reason: Constipation Last Admin: 08/23/17 10:29 Dose: 10 mg Cefdinir (Omnicef) 300 mg PO BID [facility] Last Admin: 08/31/17 08:37 Dose: 300 mg Docusate Sodium (Colace) 100 mg PO BID [facility] Last Admin: 08/31/17 08:38 Dose: Not Given Duloxetine HCl (Cymbalta) 30 mg PO DAILY [facility] Last Admin: 08/31/17 08:38 Dose: 30 mg Estradiol (Estrace 0.01% Vaginal Cream) 1 gm VAG Q2D [facility] Last Admin: 08/29/17 16:00 Dose: 1 gm Fluticasone Propionate (Flonase Nasal [place]) 0 gm NASAL DAILY [facility] Last Admin: 08/31/17 08:39 Dose: 2 spr Furosemide (Lasix) 40 mg PO 0900,1400 [facility] Last Admin: 08/31/17 08:37 Dose: 40 mg Gabapentin (Neurontin) 100 mg PO BID [facility] Last Admin: 08/31/17 08:37 Dose: 100 mg Guaifenesin/Dextromethorphan (Robitussin Dm) 10 ml PO Q6H PRN PRN Reason: Cough Isosorbide Mononitrate (Imdur Er) 30 mg PO DAILY [facility] Last Admin: 08/31/17 08:37 Dose: 30 mg Methyldopa (Aldomet) 250 mg PO BID [facility] Last Admin: 08/31/17 08:38 Dose: 250 mg Miscellaneous Medication (Pharmacy To Dose) 0 each PO ASDIR [facility] Olmesartan (Benicar) 40 mg PO DAILY [facility] Last Admin: 08/31/17 08:36 Dose: 40 mg Oxybutynin Chloride (Ditropan) 5 mg PO TID PRN PRN Reason: Bladder Spasms Pantoprazole Sodium (Protonix) 40 mg PO DAILY [facility] Last Admin: 08/31/17 08:36 Dose: 40 mg Potassium Chloride (Klor-Con 10) 10 meq PO BID-[facility] Last Admin: 08/31/17 08:37 Dose: 10 meq Prednisone (Prednisone) 20 mg PO QAM-[facility] Last Admin: 08/31/17 08:37 Dose: 20 mg Sodium Chloride (Flush - Normal Saline) 10 ml IVF Q12HR [facility] Last Admin: 08/31/17 08:39 Dose: 10 ml Sodium Chloride (Flush - Normal Saline) 10 ml IVF PRN PRN PRN Reason: Saline Flush Last Admin: 08/25/17 13:09 Dose: 10 ml Sterile Water (Water For Injection) 5 ml FS DAILY [facility] Last Admin: 08/31/17 08:39 Dose: Not Given Tramadol HCl (Ultram) 50 mg PO Q6H PRN PRN Reason: Pain Last Admin: 08/31/17 08:50 Dose: 50 mg Warfarin Sodium (Coumadin) 6 mg PO 1700 [facility] Last Admin: 08/30/17 17:28 Dose: 6 mg
--- NOTE | 2017-08-31 13:28 | PRG ---
DATE OF SERVICE: 08/31/2017 SERVICE: Pulmonary Medicine. INTERVAL HISTORY: Patient is doing great from a cardiovascular and respiratory standpoint. She cur rently denies any fevers, chills, nausea, vomiting, or chest discomfort. Otherwise, she is returnin g to her usual state of health. Her strength is improving. She is working with physical therapy an d she demonstrates better tone in the neuro chair today. She cleared her plate. She has voracious appetite. PHYSICAL EXAMINATION: VITAL SIGNS: Afebrile, pulse 68, blood pressure 122/55, respirations 18, saturation 95% on 3 liters nasal cannula. GENERAL: Patient is awake, alert, in no apparent distress. LUNGS: Excellent air entry. Dependent crackles are minimal. There is no prolonged expiratory phas e or wheezing. HEART: Normal rate, regular. ABDOMEN: Soft, nontender, nondistended. Bowel sounds positive. MUSCULOSKELETAL: No cyanosis or clubbing. No pitting in the bilateral lower extremities. NEUROLOGIC: Grossly nonfocal. LABORATORY DATA: Creatinine continues to trend downward to 1.25. BUN 46 and improving. Chloride a nd bicarbonate are stable. Basic metabolic profile is otherwise unremarkable. ASSESSMENT: 1. Acute on chronic hypoxic respiratory failure. 2. Chronic kidney disease. 3. Acute on chronic diastolic heart failure. 4. Pulmonary hypertension, multifactorial. 5. Obstructive sleep apnea, compliant with noninvasive therapy. 6. Morbid obesity. 7. Severe deconditioning. PLAN: We will continue to diurese the patient and keep her close to euvolemic. It is my understand ing, she is in line for transitioning out of the hospital to a rehabilitation center in 24-48 hours. She will remain in this location until she transitions out of the hospital. Dr. Rosado will resume care in the morning.
--- NOTE | 2017-08-31 13:31 | PRG ---
DATE OF SERVICE: 08/31/2017 SUBJECTIVE: Patient was seen and examined at bedside and overnight events noted. Patient denies an y shortness of breath or chest pain or palpitation. No history of nausea or vomiting or diarrhea or fever or chills or cramps. OBJECTIVE: GENERAL: This is a morbidly obese female in no apparent distress. VITAL SIGNS: Temperature 95, pulse 60, respiratory rate 18 and blood pressure 122/55. HEENT: Atraumatic and normocephalic. Oral mucosa is moist. NECK: Supple. CARDIOVASCULAR: S1 and S2 heard. Rate and rhythm regular. RESPIRATORY: Clear to auscultation. GASTROINTESTINAL: Abdomen is soft. MUSCULOSKELETAL: No tenderness. No edema. DERMATOLOGIC: No skin rash. NEUROLOGIC: Alert, awake and oriented x3. No focal neurologic deficits. Moving all the extremitie s. PSYCHIATRIC: Mood and affect normal. LABORATORY DATA: Potassium is 3.9, BUN 46 and creatinine is 1.25. ASSESSMENT AND PLAN: 1. Acute kidney injury on chronic kidney disease. Renal function seems to be getting better slowly . 2. Metabolic alkalosis secondary to diuresis. 3. Cardiorenal syndrome. 4. Hyperkalemia. 5. Hypernatremia. Overall, function is stable. Follow up with Cardiology for diuretics.
[2017-08-31] MEDS: Warfarin Sodium 3 MG TAB PO SCH (16:28)
[2017-08-31] MEDS: Estradiol 0.01% Vaginal Cream 42.5 gm Tube VAG SCH (19:11)
[2017-08-31] MEDS: Atorvastatin Calcium 40 MG TAB PO SCH (20:32)
[2017-08-31] MEDS ORDERED: Hydrocortisone 1% Cream 1.5 GM Packet TOP SCH (22:15)
[2017-09-01 06:10] LABS: Prothrombin Time 27.5 SEC (12.0-14.7)
[2017-09-01 06:28] LABS: BUN (Urea Nitrogen) 43 mg/dL (9.8-20.1); Calc. Creatinine Clearance 62 mL/min (70-130); Calcium 9.8 mg/dL (7.8-10.44); Estimated GFR-MDRD 41
[2017-09-01 06:38] LABS: Anion Gap 18 mmol/L (10-20); Carbon Dioxide 35 mmol/L (23-31); Chloride 94 mmol/L (98-107)
[2017-09-01] MEDS: Docusate 100 MG CAP PO SCH (08:18)
[2017-09-01] MEDS: Ascorbic Acid 500 mg Chewable Tablet PO SCH (08:21)
[2017-09-01] MEDS: Potassium Chloride 10 MEQ TAB PO SCH (08:21)
[2017-09-01] MEDS: Cefdinir 300 MG CAP PO SCH (08:22)
[2017-09-01] MEDS: Fluticasone Propionate Nasal Spray 16 gm Bottle NASAL SCH (08:22)
[2017-09-01] MEDS: Gabapentin 100 MG CAP PO SCH (08:22)
[2017-09-01] MEDS: predniSONE 20 MG TAB PO SCH (08:23)
[2017-09-01] MEDS: Allopurinol 100 MG TAB PO SCH (08:23)
[2017-09-01] MEDS: Furosemide 40 MG TAB PO SCH (08:23)
[2017-09-01] MEDS: Sterile Water 10 ML VIAL FS SCH (08:24)
[2017-09-01] MEDS: Acetaminophen 500 MG TAB PO PRN (08:36)
[2017-09-01] MEDS: traMADol HCl 50 MG TAB PO PRN (08:36)
[2017-09-01] MEDS ORDERED: Hydrocortisone 1% Cream 30 GM TUBE TOP SCH (09:00)
[2017-09-01] MEDS ORDERED: Hydrocortisone 1% Cream 1.5 GM Packet TOP SCH (09:00)
[2017-09-01] MEDS ORDERED: Potassium Chloride 20 MEQ TAB PO SCH (10:45)
--- NOTE | 2017-09-01 10:51 | PRG ---
NEPHROLOGY PROGRESS NOTE DATE OF SERVICE: 09/01/2017 SUBJECTIVE: Patient was seen and examined at bedside and overnight events noted. Patient denies an y shortness of breath or chest pain or palpitation. No history of nausea or vomiting or diarrhea or fever or chills or cramps. OBJECTIVE: GENERAL: This is a morbidly obese female in no apparent distress. Daughter is at the bedside. VITAL SIGNS: Temperature 97.7, pulse 60, respiratory rate 20 and blood pressure 134/54. She has lo st almost 100 pounds of weight since admission and feels good. Wants to go home, today most likely will be transferred. HEENT: Atraumatic and normocephalic. Oral mucosa is moist. NECK: Supple. CARDIOVASCULAR: S1 and S2 heard. Rate and rhythm regular. RESPIRATORY: Clear to auscultation. GASTROINTESTINAL: Abdomen is soft. MUSCULOSKELETAL: 1+ edema. DERMATOLOGIC: No skin rash. NEUROLOGIC: Alert, awake and oriented x3. No focal neurologic deficits. Moving all the extremitie s. PSYCHIATRIC: Mood and affect normal. LABORATORY DATA: Potassium is 3.6, BUN is 43 and creatinine is 1.25. ASSESSMENT AND PLAN: 1. Acute kidney injury on chronic kidney disease. Renal function is stable after diuresis, almost had 100-pound weight loss with diuresis. 2. Metabolic alkalosis secondary to diuresis. Agree with current Lasix dose. 3. Cardiorenal syndrome. Follow up with Cardiology. 4. Hypokalemia, replace. 5. Hypernatremia, better. Overall, the patient is stable to be discharged from Nephrology standpoint. Follow up with Dr. Sebastian in 1 week.
--- NOTE | 2017-09-01 10:52 | PDOC.PN ---
- Subjective Encounter Start Date: 09/01/17 Encounter Start Time: 10:00 Subjective: awake, no sob - Objective MAR Reviewed: Yes Vital Signs & Weight: Vital Signs (12 hours) Temp Pulse Resp BP BP Pulse Ox 09/01/17 08:22 152/73 H 09/01/17 08:00 97.7 F 61 18 94 L 09/01/17 07:34 61 09/01/17 07:19 97.7 F 63 20 135/54 L 98 09/01/17 05:12 60 09/01/17 04:00 97.5 F L 65 20 144/75 H 96 09/01/17 00:00 71 18 152/73 H 95 Weight Admit Weight 338 lb 9.6 oz Weight 244 lb 6.4 oz Most Recent Monitor Data Heart Rate from ECG 100 NIBP 146/83 NIBP BP-Mean 107 Respiration from ECG 26 SpO2 94 I&O: 08/31/17 09/01/17 09/02/17 06:59 06:59 06:59 Intake Total 540 980 Output Total 3419 6975 Balance -1385 -1798 Result Diagrams: 08/30/17 04:50 09/01/17 05:45 Phys Exam - Physical Examination HEENT: PERRLA, moist MMs Neck: no JVD, supple Respiratory: no wheezing, no rales Cardiovascular: RRR, no significant murmur Gastrointestinal: soft, non-tender, positive bowel sounds Musculoskeletal: pulses present, edema present Neurological: non-focal, moves all 4 limbs Psychiatric: A&O x 3 Dx/Plan (1) Volume overload Code(s): E87.70 - FLUID OVERLOAD, UNSPECIFIED Status: Acute Comment: resolving (2) Acute exacerbation of CHF (congestive heart failure) Code(s): I50.9 - HEART FAILURE, UNSPECIFIED Status: Acute Qualifiers: Congestive heart failure type: diastolic Qualified Code(s): I50.33 - Acute on chronic diastolic (congestive) heart failure (3) UTI (urinary tract infection) Status: Resolved Qualifiers: Urinary tract infection type: acute cystitis Hematuria presence: without hematuria Qualified Code(s): N30.00 - Acute cystitis without hematuria (4) Anasarca Code(s): R60.1 - GENERALIZED EDEMA Status: Resolved (5) Chronic acquired lymphedema Code(s): I89.0 - LYMPHEDEMA, NOT ELSEWHERE CLASSIFIED Status: Chronic (6) Dyslipidemia Code(s): E78.5 - HYPERLIPIDEMIA, UNSPECIFIED Status: Chronic (7) History of deep venous thrombosis or pulmonary embolus Code(s): FBS5190 - Status: Chronic (8) Hypertension Code(s): I10 - ESSENTIAL (PRIMARY) HYPERTENSION Status: Chronic Qualifiers: Hypertension type: essential hypertension (9) Morbid obesity Code(s): E66.01 - MORBID (SEVERE) OBESITY DUE TO EXCESS CALORIES Status: Chronic (10) FAUSTINO (obstructive sleep apnea) Code(s): G47.33 - OBSTRUCTIVE SLEEP APNEA (ADULT) (PEDIATRIC) Status: Chronic (11) Physical deconditioning Code(s): R53.81 - OTHER MALAISE Status: Chronic - Plan has diuresed extensively with renal function remaining stable -: has lost nearly 94lbs in 2 weeks -: may dc to snf if ok with specialists -: to continue lasix bid, fluid restriction and PT to mobilize -: d/w daughter at bedside, nightly cpap * . Review of Systems - Medications/Allergies Allergies/Adverse Reactions: Allergies Allergy/AdvReac Type Severity Reaction Status Date / Time Penicillins Allergy Unknown Verified 12/02/16 01:41 Medications: Current Medications Acetaminophen (Tylenol) 500 mg PO Q6H PRN PRN Reason: Headache/Fever or Pain Last Admin: 09/01/17 08:36 Dose: 500 mg Allopurinol (Zyloprim) 100 mg PO DAILY [facility] Last Admin: 09/01/17 08:23 Dose: 100 mg Ascorbic Acid (Vitamin C) 1,000 mg PO DAILY [facility] Last Admin: 09/01/17 08:21 Dose: 1,000 mg Aspirin (Aspirin Chewable) 81 mg PO DAILY [facility] Last Admin: 09/01/17 08:23 Dose: 81 mg Atorvastatin Calcium (Lipitor) 40 mg PO HS [facility] Last Admin: 08/31/17 20:32 Dose: 40 mg Benzonatate (Tessalon) 100 mg PO TID PRN PRN Reason: Cough Last Admin: 08/22/17 21:29 Dose: 100 mg Bisacodyl (Dulcolax) 10 mg [place] DAILYPRN PRN PRN Reason: Constipation Last Admin: 08/23/17 10:29 Dose: 10 mg Cefdinir (Omnicef) 300 mg PO BID [facility] Last Admin: 09/01/17 08:22 Dose: 300 mg Docusate Sodium (Colace) 100 mg PO BID [facility] Last Admin: 09/01/17 08:18 Dose: Not Given Duloxetine HCl (Cymbalta) 30 mg PO DAILY [facility] Last Admin: 09/01/17 08:22 Dose: 30 mg Estradiol (Estrace 0.01% Vaginal Cream) 1 gm VAG Q2D [facility] Last Admin: 08/31/17 19:11 Dose: 1 gm Fluticasone Propionate (Flonase Nasal [place]) 0 gm NASAL DAILY [facility] Last Admin: 09/01/17 08:22 Dose: 2 spr Furosemide (Lasix) 40 mg PO 0900,1400 [facility] Last Admin: 09/01/17 08:23 Dose: 40 mg Gabapentin (Neurontin) 100 mg PO BID [facility] Last Admin: 09/01/17 08:22 Dose: 100 mg Guaifenesin/Dextromethorphan (Robitussin Dm) 10 ml PO Q6H PRN PRN Reason: Cough Hydrocortisone/Aloe (Hydrocortisone 1% Cream) 0 gm TOP BID [facility] Last Admin: 09/01/17 08:22 Dose: 1 applic Isosorbide Mononitrate (Imdur Er) 30 mg PO DAILY [facility] Last Admin: 09/01/17 08:22 Dose: 30 mg Methyldopa (Aldomet) 250 mg PO BID [facility] Last Admin: 09/01/17 08:22 Dose: 250 mg Miscellaneous Medication (Pharmacy To Dose) 0 each PO ASDIR [facility] Olmesartan (Benicar) 40 mg PO DAILY [facility] Last Admin: 09/01/17 08:22 Dose: 40 mg Oxybutynin Chloride (Ditropan) 5 mg PO TID PRN PRN Reason: Bladder Spasms Pantoprazole Sodium (Protonix) 40 mg PO DAILY [facility] Last Admin: 09/01/17 08:22 Dose: 40 mg Potassium Chloride (Klor-Con 10) 10 meq PO BID[facility] Last Admin: 09/01/17 08:21 Dose: 10 meq Potassium Chloride (K-Dur) 40 meq PO NOW [facility] Stop: 09/01/17 13:00 Prednisone (Prednisone) 20 mg PO QAM-[facility] Last Admin: 09/01/17 08:23 Dose: 20 mg Sodium Chloride (Flush - Normal Saline) 10 ml IVF Q12HR [facility] Last Admin: 09/01/17 08:23 Dose: 10 ml Sodium Chloride (Flush - Normal Saline) 10 ml IVF PRN PRN PRN Reason: Saline Flush Last Admin: 08/25/17 13:09 Dose: 10 ml Sterile Water (Water For Injection) 5 ml FS DAILY [facility] Last Admin: 09/01/17 08:24 Dose: Not Given Tramadol HCl (Ultram) 50 mg PO Q6H PRN PRN Reason: Pain Last Admin: 09/01/17 08:36 Dose: 50 mg Warfarin Sodium (Coumadin) 6 mg PO 1700 [facility] Last Admin: 08/31/17 16:28 Dose: 6 mg
[2017-09-01 12:30] VITALS: BP 133/62; TEMP 98.1
--- NOTE | 2017-09-01 13:27 | PRG ---
DATE OF SERVICE: 09/01/2017 HISTORY: Ms. Trinidad is doing better today. She has some areas of rash on her body, it is unclear what the cause is. PHYSICAL EXAMINATION: GENERAL: She continues to diurese. She is now down 94 pounds from admission. VITAL SIGNS: Blood pressure 133/62, pulse 62 regular. LUNGS: Clear. CARDIAC: Normal S1, S2. EXTREMITIES: There is still moderately edema. ASSESSMENT: 1. Diastolic heart failure, now down 94 pounds. 2. Hypertension, improved. 3. Metabolic alkalosis. 4. Renal failure is actually improved. GFR is now 41. PLAN: 1. She is on Benicar 40 mg daily. 2. Furosemide 40 mg twice daily. 3. Potassium 10 mEq twice a day. 4. Aspirin 81 mg daily. 5. Coumadin. 6. Isosorbide 30 mg a day. 7. Prednisone tapering, then off.
--- NOTE | 2017-09-01 15:41 | PRG ---
DATE OF SERVICE: 09/01/2017 Dodie Trinidad is stable for discharge. She is going back over to [facility]. She is afebrile, heart rate 63, blood pressure 152/73, respiratory rate 20, oximetry is 93 on 2 liters. There are n o new issues that came up over the weekend. She was kept in the hospital over the weekend because ese sampson did not feel comfortable being transferred to a assisted while they were out of town at [facility] [employer]. Her electrolytes were unremarkable. BUN 43, creatinine 1.25. She will continue with BiPAP. I have written a prescription for this several days ago and faxed to their provider, Skyla.
--- NOTE | 2017-09-02 00:03 | DIS ---
DATE OF ADMISSION: 08/16/2017 DATE OF DISCHARGE: 09/01/2017 DISCHARGE DISPOSITION: To [facility]. PRIMARY DISCHARGE DIAGNOSES: Severe anasarca resolved, acute congestive heart failure exacerbation with diastolic dysfunction resolving, urinary tract infection resolved. SECONDARY DISCHARGE DIAGNOSES: History of deep venous thrombosis and pulmonary embolism, chronic lymphedema in the lower extremities, dyslipidemia, poor functional status with patient being wheelchair bound, hypertension, morbid obesity, obstructive sleep apnea, severe deconditioning. PROCEDURES DONE DURING HOSPITALIZATION: The patient has had echo with 2D Doppler done on the , which showed EF of 50%-55%, mild to moderate aortic stenosis with peak gradient approximately [address] of the abdomen and pelvis without contrast done showed severe diffuse subcutaneous anasarca, bilateral pleural effusions, ascites, pericardial effusion, mild to moderate very small residual left kidney without significant hydronephrosis. Ultrasound venous Doppler of lower extremities done showed no evidence of DVT. Urine culture grew proteus and enterococcus. Discharge H and H 11 and 39, platelet count 231, discharge BUN and creatinine 43 and 1.25, total cholesterol 151, triglycerides 76, LDL 92, HDL 44. BNP was 1268 on the day of admission. Albumin was 3.3 on the day of admission. DISCHARGE MEDICATIONS: Albuterol nebulizer q.8 hourly p.r.n., allopurinol 100 mg p.o. daily, vitamin C 1000 mg p.o. daily, calcium with vitamin D3 one tab twice daily, Cymbalta 30 mg p.o. daily, Colace 100 mg p.o. twice daily, Pepcid 20 mg twice daily, ferrous sulfate 325 mg p.o. twice daily, Lasix 40 mg p.o. twice daily, gabapentin 100 mg p.o. twice daily, Imdur extended release 30 mg daily, magnesium oxide 400 mg twice daily, melatonin 10 mg p.o. at bedtime, methyldopa 250 mg p.o. twice daily, Benicar 40 mg p.o. daily, Protonix 40 mg p.o. daily, potassium chloride 10 mEq p.o. twice daily, Pravachol 40 mg p.o. at bedtime, Coumadin as before 6 mg daily, prednisone tapering dose for the next 6 days and to be discontinued, and Ultram p.r.n. for pain. ALLERGIES: PENICILLIN. INPATIENT CONSULTS: Dr. Alejo for Cardiology, Dr. Rosado for Pulmonology, and Dr. Sebastian for Nephrology. BRIEF COURSE DURING HOSPITALIZATION: The patient initially got admitted after she was sent over from [facility] for massive anasarca. Patient's admitting weight was 338 pounds. Her discharge weight is 244 pounds this morning. She has had severe anasarca with diastolic dysfunction and volume overload. She was also functionally very poor and was wheelchair bound. She was placed on IV Lasix drip and has diuresed well. She was closely monitored for her renal function with chronic kidney disease stage 3-4. One of patient's kidney is atrophic as well. The patient was in IMCU all through her stay and has done remarkably well. She has lost nearly 94 pounds during her stay here. She was evaluated by Dr. Alejo for Cardiology, Dr. Rosado for Critical Care, and Dr. Sebastian for Nephrology. The patient still has some edema and needs to have ongoing diuresis with Lasix twice daily orally along with optimization of her cardiac medications. Patient also needs to work with physical therapy. Her overall prognosis is guarded at the time of discharge. A total of 35 minutes was spent on discharge plan. Please see a face to face documentation on [facility] for the day of discharge. MTDD
== END 2017-09-01 14:11 | DRG 291 ==
LOC: ERS 19:25 → IMCU/EMU 21:08 → CCU 08-22 15:46 → IMCU/EMU 08-23 13:22
PROVIDERS: ADMIT Internal Medicine; ATTEND Internal Medicine
PROC: 5A09357 Assistance with Respiratory Ventilation, Less than 24 Consecutive Hours, Continuous Positive Airway Pressure (ICD-10-PCS; principal; 2017-08-17)
DX: I13.0 Hypertensive heart and chronic kidney disease with heart failure and stage 1 through stage 4 chronic kidney disease, or unspecified chronic kidney disease (principal); I50.33 Acute on chronic diastolic (congestive) heart failure; J96.21 Acute and chronic respiratory failure with hypoxia; N17.9 Acute kidney failure, unspecified; E87.0 Hyperosmolality and hypernatremia; E87.3 Alkalosis; N30.00 Acute cystitis without hematuria; Z68.41 Body mass index [BMI] 40.0-44.9, adult; I27.20 Pulmonary hypertension, unspecified; B96.4 Proteus (mirabilis) (morganii) as the cause of diseases classified elsewhere; J98.11 Atelectasis; E83.42 Hypomagnesemia; E83.52 Hypercalcemia; E66.01 Morbid (severe) obesity due to excess calories; N18.3 Chronic kidney disease, stage 3 (moderate); G47.33 Obstructive sleep apnea (adult) (pediatric); Z86.718 Personal history of other venous thrombosis and embolism; Z79.01 Long term (current) use of anticoagulants; I89.0 Lymphedema, not elsewhere classified; Z88.0 Allergy status to penicillin; E87.6 Hypokalemia; Z85.72 Personal history of non-Hodgkin lymphomas; R00.1 Bradycardia, unspecified; Z74.01 Bed confinement status; I87.8 Other specified disorders of veins; B95.2 Enterococcus as the cause of diseases classified elsewhere; Z86.711 Personal history of pulmonary embolism; E78.5 Hyperlipidemia, unspecified; I35.0 Nonrheumatic aortic (valve) stenosis; E87.70 Fluid overload, unspecified; D64.9 Anemia, unspecified; Z92.21 Personal history of antineoplastic chemotherapy
CPT/HCPCS: 36415; 51702; 71010; 74176; 80048; 80053; 80061; 81003; 81015; 82550; 82553; 82728; 82805; 83540; 83550; 83735; 83880; 84484; 85025; 85610; 85730; 87070; 87077; 87086; 87186; 87205; 93005; 93010; 93306; 93798; 93970; 94640; 94644; 94660; 96374; 96375; A4216; G8978-GP-CL; G8979-GP-CJ; J0456; J0696; J1120; J1940; J2920; J2930; J3475; J7050; J7611

== ENCOUNTER 2018-05-08 00:15 | Emergency (ER) | payer MEDICARE ==
[2018-05-08] MEDS ORDERED: Ondansetron ODT 4 MG TAB ONE (01:12)
[2018-05-08 01:25] LABS: #Basophils 0.1 thou/uL (0.0-0.2); #Eosinphils 0.1 thou/uL (0.0-0.7); #Monocytes 0.5 thou/uL (0.11-0.59); #Neutrophils 4.7 thou/uL (1.40-6.50); %Basophils 1.9 % (0.0-1.0); %Eosinophils 1.2 % (0.0-10.0); %Lymphocytes 15.5 % (21.0-51.0); %Monocytes 7.8 % (0.0-10.0); %Neutrophils 73.6 % (42.0-75.0); Hemoglobin 12.1 g/dL (12.0-16.0); Mean Corpuscular HGB CONC 33.1 g/dL (32.0-36.0); Mean Corpuscular Hemoglobin 32.7 pg (27.0-31.0); Mean Corpuscular Volume 98.6 fL (78.0-98.0); Platelet Count 295 thou/uL (130-400); RBC Distribution Width 13.5 % (11.5-14.5); Red Blood Cell (RBC) Count 3.71 mill/uL (4.20-5.40); White Blood Cell (WBC) Count 6.4 thou/uL (4.8-10.8)
[2018-05-08 01:38] LABS: ALT (SGPT) 14 U/L (8-55); AST (SGOT) 17 U/L (5-34); Albumin 3.7 g/dL (3.4-4.8); Alkaline Phosphatase 114 U/L (40-150); Anion Gap 15 mmol/L (10-20); BUN (Urea Nitrogen) 54 mg/dL (9.8-20.1); Bilirubin, Total 0.4 mg/dL (0.2-1.2); CK (CPK) 53 U/L (29-168); Calc. Creatinine Clearance 0 mL/min (70-130); Calcium 10.6 mg/dL (7.8-10.44); Carbon Dioxide 31 mmol/L (23-31); Chloride 92 mmol/L (98-107); Estimated GFR-MDRD 31; Globulin 3.2 g/dL (2.4-3.5); Glucose 115 mg/dL (83-110); Potassium 4.9 mmol/L (3.5-5.1); Protein, Total 6.9 g/dL (6.0-8.3); Sodium 133 mmol/L (136-145)
[2018-05-08 01:42] LABS: Troponin I 0.013 ng/mL (< 0.028)
== END 2018-05-08 05:19 | disposition home or self-care (01) ==
LOC: ERS 00:15
DX: L03.115 Cellulitis of right lower limb (principal); R25.2 Cramp and spasm; I10 Essential (primary) hypertension; M10.9 Gout, unspecified
CPT/HCPCS: 80053; 82553; 84484; 85025; 93005; 96374; J2270; Q0162

== ENCOUNTER 2018-06-04 11:33 | Inpatient (IN) | payer MEDICARE ==
--- NOTE | 2018-06-04 13:11 | RAD ---
LEFT LOWER LEG TWO VIEWS: History: Left leg injury. FINDINGS: Osseous structures are demineralized. No fracture or dislocation apparent. Prominent phleboliths thro ughout the soft tissues. Large area of soft tissue edema overlies the lateral margin of the lower lob e. IMPRESSION: 1. Osteoporosis. Soft tissue edema. 2. No acute osseous abnormalities are apparent. POS: [facility]
[2018-06-04] MEDS ORDERED: Ondansetron HCl/PF 4 MG/2 ML Vial ONE (13:17)
[2018-06-04 14:24] LABS: #Lymphocytes 0.9 thou/uL (1.20-3.40); #Monocytes 0.7 thou/uL (0.11-0.59); #Neutrophils 13.7 thou/uL (1.40-6.50); %Basophils 0.2 % (0.0-1.0); %Eosinophils 0.2 % (0.0-10.0); %Monocytes 4.4 % (0.0-10.0); %Neutrophils 89.2 % (42.0-75.0); Hemoglobin 11.2 g/dL (12.0-16.0); Mean Corpuscular HGB CONC 33.4 g/dL (32.0-36.0); Mean Corpuscular Hemoglobin 33.1 pg (27.0-31.0); Platelet Count 372 thou/uL (130-400); RBC Distribution Width 13.3 % (11.5-14.5); Red Blood Cell (RBC) Count 3.39 mill/uL (4.20-5.40); White Blood Cell (WBC) Count 15.4 thou/uL (4.8-10.8)
[2018-06-04 14:34] LABS: INR-International Normal Ratio 2.9; Prothrombin Time 30.2 SEC (12.0-14.7)
[2018-06-04 14:35] LABS: PTT 53.2 SEC (22.9-36.1)
[2018-06-04 14:48] LABS: ALT (SGPT) 9 U/L (8-55); AST (SGOT) 15 U/L (5-34); Albumin 3.4 g/dL (3.4-4.8); Alkaline Phosphatase 95 U/L (40-150); Anion Gap 16 mmol/L (10-20); BUN (Urea Nitrogen) 50 mg/dL (9.8-20.1); Bilirubin, Total 0.4 mg/dL (0.2-1.2); Calc. Creatinine Clearance 0 mL/min (70-130); Calcium 9.8 mg/dL (7.8-10.44); Carbon Dioxide 26 mmol/L (23-31); Chloride 97 mmol/L (98-107); Estimated GFR-MDRD 34; Globulin 2.8 g/dL (2.4-3.5); Glucose 125 mg/dL (83-110); Potassium 4.5 mmol/L (3.5-5.1); Protein, Total 6.2 g/dL (6.0-8.3); Sodium 134 mmol/L (136-145)
[2018-06-04] MEDS ORDERED: HYDROcodone/Acetaminophen 10/325 mg Tablet PO PRN (15:46)
--- NOTE | 2018-06-04 15:57 | RAD ---
CHEST 1 VIEW: Date: 06/04/18 HISTORY: Cough. COMPARISON: 08/26/17. FINDINGS: Atherosclerosis of aortic knob. Normal cardiac silhouette. Pulmonary vessels and hilum are normal. Co stophrenic angles are clear. No mass. No consolidation. There is elevation of left hemidiaphragm. No pneumothorax or osseous abnormalities. Linear opacities in the left lung base likely represent atelectasis given left hemidiaphragm elevatio n. IMPRESSION: 1. Left lower lobe atelectasis. 2. Atherosclerosis. POS: [facility]
[2018-06-04] MEDS ORDERED: oxyCODONE 5 MG TAB PO SCH (16:00)
[2018-06-04] MEDS ORDERED: HYDROcodone/Acetaminophen 7.5/325 mg Tablet PO PRN (16:01)
[2018-06-04] MEDS ORDERED: Warfarin Sodium 3 MG TAB PO SCH (17:00)
[2018-06-04 17:57] VITALS: BMI 33.2
[2018-06-04] MEDS: Melatonin 3 MG TAB PO SCH (20:27)
[2018-06-04] MEDS: Gabapentin 100 MG CAP PO SCH (20:31)
[2018-06-04] MEDS ORDERED: Famotidine 20 MG TAB PO SCH (21:00)
[2018-06-04] MEDS: Ondansetron HCl/PF 4 MG/2 ML Vial IVP PRN (23:44)
--- NOTE | 2018-06-05 00:43 | HP ---
CHIEF COMPLAINT: Left lower leg pain. HISTORY OF PRESENT ILLNESS: The patient is an 82-year-old patient with multiple comorbidities, who p resents to the hospital with left leg pain. The patient stated that this morning she was unable to p ivot and when they were trying to elevate the Irma lift, her left leg got caught in one of the areas and the patient started complaining of pain. At this time, the Irma lift was adjusted and then the patient was put back into bed. The patient's daughter stated that she started having some significa nt swelling in that left lower extremity. Denies any recent fevers, chills, nausea, vomiting, diarrh ea, chest pain, shortness of breath. The patient's daughter stated that she had recently the patient's right knee aspirated and I was call ed in for a prescription for rifampin by Orthopedic, which she has not started as of yet. PAST MEDICAL HISTORY: The patient has a medical history of, 1. Chronic lower extremity lymphedema. 2. Diastolic heart failure. 3. History of non-Hodgkin's lymphoma, status post chemotherapy and radiation. 4. History of pulmonary embolus and DVTs, on anticoagulation. 5. Hypertension. 6. Urinary tract infections. 7. Hyperlipidemia. PAST SURGICAL HISTORY: She has had bilateral cataracts, cholecystectomy, and right total knee arthro plasty. CODE STATUS: She is a FULL CODE. This was discussed with the patient and the patient's family and lynda adileneludwig wanted to be FULL CODE. SOCIAL HISTORY: Denies any alcohol use, drug use, tobacco use, or any other illicit drug use. MEDICATIONS: This is going through her previous records based upon her last discharge summary which was done in 08/2017. She takes melatonin 10 mg 1 p.o. daily. She takes Benicar 20 mg daily, Lasix 4 0 mg in the morning and 20 in the evening. She is on Imdur 30 mg daily. She is on Neurontin 200 mg at night and 100 mg in the morning, magnesium oxide 400 mg twice a day. She is on methyldopa 250 mg b.i.d., Protonix 40 mg daily, Pravachol 40 mg daily. She is also on Coumadin with changes based on h er INR. She is also on Cymbalta 30 mg daily. She is also on Colace 100 mg twice a day. She is also on iron 325 mg twice a day. ALLERGIES: She is allergic to PENICILLIN. FAMILY HISTORY: Multiple family members with history of PEs and DVTs. REVIEW OF SYSTEMS: All negative except for the ones mentioned above in the HPI. PHYSICAL EXAMINATION: VITAL SIGNS: She is afebrile at 98.7, 100% on room air, respirations 20, blood pressure 139/72, puls e of 90. GENERAL: She is awake, alert, oriented x3, appears to be mildly dehydrated. CARDIOVASCULAR: S1, S2 present. No murmurs, rubs, or gallops. LUNGS: Clear to percussion and auscultation, no rhonchi or wheezes noted. ABDOMEN: Soft, nontender. Bowel sounds present x2. EXTREMITIES: She does have nonpitting lower extremity edema. Her left leg has a significant large h ematoma, which has been marked by nursing. She does also have a very small water blister right on he r lateral aspect of her left leg. Pedal pulses are present bilaterally. NEUROLOGIC: No focal deficits noted. SKIN: She does have a pretty significant ecchymotic area around her left lower extremity. LABORATORY DATA: Her laboratory results are as of the following: WBC of 15.4, hemoglobin of 11.2, h ematocrit of 33.6, platelets of 372. She has got no bands. INR is 2.9. Chemistry: Sodium of 134, potassium of 4.5, BUN of 50, creatinine of 1.46, glucose of 125. LFTs are normal. She also had a chest x-ray. Chest x-ray did not indicate any acute infiltrates at all. She also had tibia and fibula x-ray, which was negative. Just indicated soft tissue edema and osteoporosis. No acute abnormalities. ASSESSMENT AND PLAN: The patient is a very pleasant 82-year-old female who presents to the hospital with complaints of left leg pain. 1. Left leg hematoma. The patient is on Coumadin and she is therapeutic at 2.9. I would hold the Isac das for now given her significant hematoma. Her H&H . We will continue to monitor. Hemato ma area line has been drawn. If it continues to worsen, we will consider a surgical evaluation; jeffery baron for now, we will just continue to monitor. We will also continue to check pedal pulses to make s ure this does not cause any compartment syndrome. We will start the patient on her pain medications that she takes at home. If again her pain worsens and not relieved with the pain medication, this wo uld be concerning. 2. Mildly elevated WBCs. We will check did not indicate any acute abnormalities. She has no cough or fevers. We will await for urinalysis and continue to monitor. This could be secondary to h er bruise on her left foot. 3. Chronic kidney disease. We will continue to monitor. 4. History of hypertension. We will continue to monitor and continue her home medications. 5. History of deep vein thrombosis and pulmonary embolus. We will continue to monitor. We will hol d the Coumadin for today and continue, most likely if she does well, we will probably continue in the morning.
[2018-06-05] MEDS ORDERED: HYDROcodone/Acetaminophen 5/325 mg Tablet PO PRN (01:08)
[2018-06-05 01:12] LABS: Bilirubin Negative (Negative); Blood, Urine Small (Negative); Clarity TURBID (Clear); Glucose, Urine (Dipstick) Negative (Negative); Leukocyte Large (Negative); Nitrite Negative (Negative); Protein, Urine (Dipstick) Trace mg/dL (Neg-Trace); Specific Gravity, Urine 1.014 (1.002-1.036); Urobilinogen 0.2 mg/dL (0.2-1.0); pH, Urine 6.5 (5.0-9.0)
[2018-06-05 01:14] LABS: Hyaline Casts/LPF 0-3 HYALINE CAST LPF (0-3 Hyaline); RBC/HPF 0-3 HPF (0-3); Squamous Epithelial None Seen HPF (0-3)
[2018-06-05 01:15] LABS: Yeast-AUWi Flag 107.6 (0-25.0)
[2018-06-05] MEDS ORDERED: Sodium Chloride 0.9% 500 ML IV SCH (01:15)
[2018-06-05 01:30] LABS: Bacteria/HPF 4+ HPF (None Seen); Yeast-All Forms None Seen HPF (None Seen)
[2018-06-05 01:44] LABS: Anion Gap 18 mmol/L (10-20); BUN (Urea Nitrogen) 62 mg/dL (9.8-20.1); Calc. Creatinine Clearance 29 mL/min (70-130); Calcium 9.5 mg/dL (7.8-10.44); Carbon Dioxide 24 mmol/L (23-31); Chloride 98 mmol/L (98-107); Estimated GFR-MDRD 23; Glucose 210 mg/dL (83-110); Potassium 5.8 mmol/L (3.5-5.1); Sodium 134 mmol/L (136-145)
[2018-06-05 01:56] LABS: Band 2 % (5-11); Eosinophils 1 % (0-10); Lymphocytes 27 % (21-51); MDiff Complete? YES; Mean Corpuscular HGB CONC 33.4 g/dL (32.0-36.0); Mean Corpuscular Volume 99.1 fL (78.0-98.0); Mean Platelet Volume 7.3 fL (7.4-10.4); Monocytes 3 % (0-10); Neutrophil 67 % (42-75); Platelet Count 383 thou/uL (130-400); RBC Distribution Width 13.4 % (11.5-14.5); Red Blood Cell (RBC) Count 2.41 mill/uL (4.20-5.40); White Blood Cell (WBC) Count 20.5 thou/uL (4.8-10.8)
[2018-06-05] MEDS ORDERED: Meropenem 500 MG in Sodium Chloride 0.9% 100 ML IVPB SCH ×2 (02:15→10:00)
[2018-06-05] MEDS ORDERED: Phytonadione 10 MG in Sodium Chloride 0.9% 50 ML IVPB SCH (02:30)
[2018-06-05 02:44] LABS: Actual Bicarbonate (HCO3a) 22.9 mEq/L (22-28); CO2 Tension 39.2 mmHg (35.0-45.0); Carboxyhemoglobin (COHb) 1.7 gm% (0.0-3.0); Hemoglobin (Hb) 7.2 g/dL (12.0-16.0); pH, Arterial 7.38 (7.35-7.45)
[2018-06-05 02:45] LABS: Calcium, Ionized 1.2 mmol/L (1.12-1.30); Potassium - ABG Lab 5.6 mmol/L (3.70-5.30); Puncture Site LINE
--- NOTE | 2018-06-05 02:59 | PDOC.EVN ---
Event Note - Event Note Event Note: Called to a chris green for hypotension presumably 2/2 blood loss with a possible component of urosepsis. No IV access was available and the patient was taken to the ICU. Informed written and verbal consent was obtained from the daughter concerning the r/b/a/i of CVC placement, including pain, bleeding, infection, damage to nerves, arteries, or veins, pneumothorax, and need for additional procedures. In the usual sterile fashion the right neck was prepped, a full bed drape was placed and the skin numbed. The right IJ seemed to be accessed under ultrasound guidance and appeared to be confirmed by ultrasound. Using seldinger technique the line was placed and bright red blood noted upon return from the central line. This was immediately sent for blood gas and a CXR was ordered. The pO2 was elevated and the catheter appeared malpositioned on CXR. I have called Dr. Sarah, who is coming to evaluate. I have updated the daughter on the current situation.
--- NOTE | 2018-06-05 03:03 | PDOC.EVN ---
Event Note - Event Note Event Note: Code green called since pt was found in hypovolemic shock pt has a hx of multiple vte's last one long time a go, as per daughter years ago, there is a very large hematoma, within the left lower extremities soft tissue, and probably the source of the hypovolemia there has been an acute drop in h/h from 11->7, will consult vascular to see if any intervention is needed we have lost IV access , and we are attempting to get a central line for iv fluids resuscitation and blood products transfusion. although correcting anticoagulation would be risky for development of new vte's pt has a large bleeding with acute blood loss and hypovolmemic shock for now we will revert and we will adjust treatment once pt is hemodynamically stable
[2018-06-05] MEDS ORDERED: Norepinephrine 8 MG/0.9% NS 0 ML ONE (03:17)
--- NOTE | 2018-06-05 04:25 | PDOC.EVN ---
Event Note - Event Note Event Note: Dr. Sarah at bedside recommends 4 units FFP and to pull line in the morning when coags corrected. He attempted placement of right femoral CVC and was unable to place. Left femoral placed successfully and FFP infusing. Patient HDS and tolerated well. I updated the daughter and answered all questions with the dye house vat worker in attendance (as she was for the first meeting as well). Formal procedure note to follow.
[2018-06-05 06:28] LABS: INR-International Normal Ratio 1.4; PTT 32.7 SEC (22.9-36.1); Prothrombin Time 17.3 SEC (12.0-14.7)
[2018-06-05 06:32] LABS: Hemoglobin 4.9 g/dL (12.0-16.0)
[2018-06-05 06:33] LABS: #Lymphocytes 0.9 thou/uL (1.20-3.40); #Monocytes 1.1 thou/uL (0.11-0.59); #Neutrophils 18.1 thou/uL (1.40-6.50); %Basophils 0.1 % (0.0-1.0); %Eosinophils 0.1 % (0.0-10.0); %Lymphocytes 4.2 % (21.0-51.0); %Monocytes 5.4 % (0.0-10.0); %Neutrophils 90.2 % (42.0-75.0); Mean Corpuscular HGB CONC 33.5 g/dL (32.0-36.0); Mean Corpuscular Hemoglobin 33.7 pg (27.0-31.0); Mean Platelet Volume 7.4 fL (7.4-10.4); Platelet Count 268 thou/uL (130-400); RBC Distribution Width 13.4 % (11.5-14.5); Red Blood Cell (RBC) Count 1.45 mill/uL (4.20-5.40); White Blood Cell (WBC) Count 20.1 thou/uL (4.8-10.8)
--- NOTE | 2018-06-05 07:23 | OP-2 ---
DATE OF PROCEDURE: 06/05/2018 RESIDENT: PGY-2 Shantanu Jack D.O. ATTENDING: Dr. Harish Armando PROCEDURE: Internal jugular central line. INDICATIONS: Hypotensive as well as acute blood loss. CONSENT: Consent was obtained from the patient's daughter prior to the procedure. Indications, risks and benefits were explained at length. PROCEDURE IN DETAIL: Timeout was performed. My hands were washed immediately prior to the procedure. I wore a surgical cap, mask and protective eyewear, full gown and sterile gloves throughout the procedure. The patient was placed in Trendelenburg position, right chest was prepped using chlorhexidine scrub and draped in sterile fashion using 3/4 sheet drape and sterile towels. Internal jugular vein was identified using ultrasound. Anesthesia was achieved over the vein using 1% lidocaine. Initially, Dr. Michael Solares attempted to insert the introducer needle into the internal jugular vein under direct ultrasound visualization. However, he was unsuccessful, therefore, I attempted to do the same. Introducer needle was attempted to be inserted in the internal jugular vein under direct ultrasound visualization. Non-pulsating blood was withdrawn. The syringe was removed and guidewire was advanced into the introducer needle. The guidewire was visualized in what appeared to be in the internal jugular vein by ultrasound. Small incision was made at the skin surface with a scalpel and introducer needle was exchanged for a dilator over the guidewire. After appropriate dilation was obtained, the dilator was exchanged over the wire for central venous catheter and wire was removed with bright red blood expressed from the central venous catheter. At this time, the procedure was stopped and a chest x-ray was performed as well as blood gas. Chest x-ray showed displacement of the central line in the carotid artery. Blood gas was consistent with arterial line placement with a pO2 244.0. At this time, Dr. Sarah was called and came in for further guidance. Dr. Sarah attempted to place a right femoral line unsuccessfully. He then successfully placed a left femoral line which he did so successfully. His recommendation was to leave the right arterial in place until 4 units of FFP could be transfused at which time the central line would be removed in the morning. Dr. Harish Armando was present and gowned for the entire procedure. [facility]ITAL[facility]isela
--- NOTE | 2018-06-05 07:26 | HP ---
HISTORY OF PRESENT ILLNESS: Ms. Trinidad is in the hospital after catching her left leg in a Irma li ft. She has a large hematoma on the left leg. The patient was in the hospital with no IV access. Charis arango were able to start IV in her left thumb. She takes Coumadin, had an INR of 2.9, needed to have h er INR corrected to hopefully quelled the bleeding from this left leg hematoma. She takes Coumadin f or history of multiple pulmonary emboli, the last was in the mid 90s. She has been kept on Coumadin since that time. was placed in her right neck for resuscitation, which is arterial. I was called for management decisions. The bilateral groins were prepped and draped in usual sterile fashion. After attempting a right femo ral line and was never able to access the femoral vein. The left groin was accessed and 7-Lithuanian tri ple lumen line placed. This was secured the skin. A sterile dressing was applied. PAST MEDICAL HISTORY: 1. Chronic lower extremity lymphedema. 2. Diastolic heart failure. 3. Non-Hodgkin's lymphoma, status post chemoradiation. 4. History of pulmonary emboli and DVTs, last was in the mid 90s on chronic Coumadin therapy with e current INR of 2.9. 5. Hypertension. 6. Urinary tract infection. 7. Hyperlipidemia. PAST SURGICAL HISTORY: 1. Cataracts. 2. Cholecystectomy. 3. Right total knee replacement. SOCIAL HISTORY: She does not use alcohol or tobacco. PHYSICAL EXAMINATION: VITAL SIGNS: Heart rate is in the 60s, blood pressure is 101/65. GENERAL: The patient is awake and alert and conversant. HEENT: She has a right neck line, which has been sterilely draped and secured to skin. CHEST: Clear. HEART: Rhythm is regular. ABDOMEN: Soft, mildly tender. EXTREMITIES: She has a large hematoma over her left lateral leg, which is draining and will probably lymphedema. She will need a chronic wound care for this. ASSESSMENT AND PLAN: The patient now has a femoral vein access, can be further resuscitated and have her INR corrected with fresh frozen plasma. The right neck line will be removed after the fresh fro [place] plasma has been infused.
[2018-06-05 07:57] LABS: #Lymphocytes 1.1 thou/uL (1.20-3.40); #Monocytes 1.7 thou/uL (0.11-0.59); #Neutrophils 19.2 thou/uL (1.40-6.50); %Basophils 0.1 % (0.0-1.0); %Eosinophils 0.1 % (0.0-10.0); %Lymphocytes 4.8 % (21.0-51.0); %Monocytes 7.5 % (0.0-10.0); %Neutrophils 87.5 % (42.0-75.0); Hemoglobin 5.4 g/dL (12.0-16.0); Mean Corpuscular HGB CONC 33.4 g/dL (32.0-36.0); Mean Corpuscular Hemoglobin 33.4 pg (27.0-31.0); Mean Corpuscular Volume 99.9 fL (78.0-98.0); Mean Platelet Volume 7.9 fL (7.4-10.4); Platelet Count 288 thou/uL (130-400); RBC Distribution Width 13.5 % (11.5-14.5); Red Blood Cell (RBC) Count 1.62 mill/uL (4.20-5.40)
--- NOTE | 2018-06-05 08:11 | PDOC.EVN ---
Event Note - Event Note Event Note: Line pulled after INR returned 1.[address] Sarah at bedside @ 0715. Pressure applied for 15 minutes. Mild fullness, which has been stable for the last hour. Neurointact. Will observe closely.
[2018-06-05 08:43] LABS: MDiff Complete? YES
--- NOTE | 2018-06-05 08:47 | RAD ---
RADIOGRAPH CHEST 1 VIEW: Date: 06/05/18. Time: 2:41 a.m. HISTORY: An 82-year-old female status post central line placement. Dr. Shaikh discussed the location of the central vascular catheter by telephone with CCU nurse, Rowena Li, at 7:58 a.m. on 06/05/18. She stated that Dr. Sarah was aware of the position of the central v ascular catheter, and had already removed it. COMPARISON: 06/04/18, 3:00 p.m. FINDINGS: There is a new central vascular catheter descending from the right neck which takes a diagonal course , across the midline of the mediastinum, and overlies the mediastinum to the left of midline. It is suspected to be traversing the right common carotid artery and brachiocephalic artery, and with dista l tip in the aorta. This is a supine image, which would be insensitive for pneumothorax detection. Visualized lung wallace are clear. Lateral costophrenic angles are sharp. There is no other interval change. IMPRESSION: Right-sided central vascular catheter takes an abnormal course, apparently intra-arterial. CODE CR JN [] POS: [facility]
[2018-06-05] MEDS: Allopurinol 100 MG TAB PO SCH (09:14)
[2018-06-05] MEDS: Sodium Chloride 0.9% 1,000 ML IV SCH ×2 (09:14→20:34)
[2018-06-05] MEDS: DULoxetine 30 MG CAP PO SCH (09:14)
[2018-06-05] MEDS ORDERED: Calcium Gluconate 4.6 MEQ in Sodium Chloride 0.9% 100 ML IVPB SCH (09:15)
[2018-06-05 09:30] LABS: Anion Gap 14 mmol/L (10-20); BUN (Urea Nitrogen) 59 mg/dL (9.8-20.1); Calc. Creatinine Clearance 30 mL/min (70-130); Calcium 9.1 mg/dL (7.8-10.44); Carbon Dioxide 29 mmol/L (23-31); Chloride 100 mmol/L (98-107); Estimated GFR-MDRD 24; Glucose 144 mg/dL (83-110); Potassium 5.3 mmol/L (3.5-5.1); Sodium 138 mmol/L (136-145)
--- NOTE | 2018-06-05 10:47 | PDOC.EVN ---
Event Note - Event Note Event Note: Patient reexamined. She is feeling better. CN II-XII intact and symmetric. Motor BUE and BLE unchanged from previous. SILT to light touch throughout. Her neck exam is unchanged from previous. Will continue to monitor.
--- NOTE | 2018-06-05 11:16 | CON ---
DATE OF CONSULTATION: 06/05/2018 SERVICE: Pulmonary Medicine. REASON FOR CONSULTATION: ICU patient. HISTORY OF PRESENT ILLNESS: The patient is an 82-year-old white female with past medical history significant for atrial fibrillation and history of DVT. She is essentially bed bound or confined to a wheelchair. At best, she can stand. That being said, she does not walk or take any steps. She has been in this condition for a very long period of time. She is being transferred from one place to another place with Irma lift. They struck her leg. There was hematoma that evolved. Ultimately, she lost significant amounts of blood in that location. She became a little bit lightheaded and loss of blood pressure. A central line was being attempted last night and she ended up with a line placed in the carotid artery. This has subsequently been removed by Vascular Surgery. A left femoral line was placed. She received multiple blood products through the night. She did not have an appropriate rise with the last 2 units of blood that she got although she is moving in the right direction. Her blood pressures have improved. She denies any current dizziness, lightheadedness, shortness of breath, chest pain. PAST MEDICAL HISTORY: 1. Chronic diastolic heart failure. 2. Non-Hodgkin's lymphoma, status post chemotherapy and radiation therapy. 3. History of pulmonary embolism/DVT 4. Hypertension. 5. Urinary tract infection. 6. Dyslipidemia. 7. Chronic stasis of the bilateral lower extremities. PAST SURGICAL HISTORY: 1. Bilateral cataract surgery. 2. Cholecystectomy. 3. Right total knee arthroplasty. SOCIAL HISTORY: Negative for alcohol, tobacco or illicit drug use. She has no exposure to chemicals, dust asbestos or tuberculosis. FAMILY HISTORY: Noncontributory. ALLERGIES: PENICILLIN, NITROFURANTOIN, SULFAMETHOXAZOLE, TRIMETHOPRIM. MEDICATIONS: Lists of her inpatient medications were reviewed. No specific updates were made at this time. REVIEW OF SYSTEMS: General, head, ears, eyes, nose, throat, cardiovascular, respiratory, GI, , musculoskeletal, neurologic and skin is negative except as mentioned in the HPI. PHYSICAL EXAMINATION: VITAL SIGNS: Afebrile, pulse 90, blood pressure 151/59, respirations 19, saturation 100% on 2 liters nasal cannula. GENERAL: The patient is awake, alert, no apparent distress. LUNGS: Decent air entry. There are minimal dependent crackles present. No prolonged expiratory phase or wheezing is appreciated. HEART: Normal rate, regular. ABDOMEN: Soft, nontender, nondistended. Bowel sounds are positive. MUSCULOSKELETAL: No cyanosis or clubbing. There is 2+ pitting in the bilateral lower extremities, which is roughly symmetric. On top of that, there is a very large superficial hematoma that looks mostly like clot at this time. There is active extravasation of serosanguineous fluid. I do not see anything purely bloody any longer. LABORATORY DATA: WBC 22.0, hemoglobin 5.4, platelets 288,000. INR 1.4 following 4 units of FFP. A pH 7.38, pCO2 of 39, pO2 244. Creatinine 1.97 and down trending, BUN 59. Basic metabolic profile is otherwise unremarkable. WBC count in the urine is greater than 50, but otherwise is unremarkable. IMAGING DATA: 1. Chest x-ray demonstrates an IJ coursing down carotid artery into the expected region of the aorta. Otherwise, I do not see any pneumothorax, acute cardiopulmonary abnormality. 2. X-ray of the tib-fib demonstrates no acute osseous destruction. There is significant soft tissue edema. Osteoporosis is noted. ASSESSMENT: 1. Hematoma of the left lateral leg. 2. Acute blood loss anemia. 3. Acute kidney injury, improving. 4. History of atrial fibrillation, pulmonary embolism and deep vein thrombosis. DISCUSSION AND PLAN: We are going to hold anticoagulation obviously. She has already been corrected. I will give 4.6 mEq of calcium gluconate. We will trend her hemoglobins. She is getting 2 more units of blood since most recent hemoglobin. We will try to keep her above 7. We are going to watch the swelling of the left lower extremity. We are going to provide a compression hose on that thing for the next 2-3 hours. After that, we will remove it. We will make certain that she does not lose pulses in the foot. She can remain in the ICU for the next 24 hours until she clearly demonstrate some hemodynamic stability. At this point, no surgical intervention is indicated. This hematoma is large enough to account for her blood loss. As such, I am going to discontinue our CT of the abdomen and pelvis as I am doubtful that we are dealing with any type of coexisting intraabdominal process. Of note, the abdominal discomfort that she noted earlier has completely resolved. 70 minutes have been devoted to this patient in various activities. I personally reviewed all imaging studies and laboratory data noted within this document. For fifty percent of this time, I was interacting with the patient at the bedside or coordinating care with the care team. For the remainder of the time I was immediately available to the patient in the hospital unit. ANA
[2018-06-05 12:17] LABS: Hemoglobin 11.3 g/dL (12.0-16.0)
[2018-06-05] MEDS: Fentanyl 100 MCG/2 ML VIAL SLOW IVP PRN ×2 (16:07→21:53)
[2018-06-05 16:27] LABS: Anion Gap 12 mmol/L (10-20); BUN (Urea Nitrogen) 54 mg/dL (9.8-20.1); Calc. Creatinine Clearance 35 mL/min (70-130); Calcium 9.2 mg/dL (7.8-10.44); Carbon Dioxide 29 mmol/L (23-31); Chloride 101 mmol/L (98-107); Estimated GFR-MDRD 29; Glucose 127 mg/dL (83-110); Potassium 5.3 mmol/L (3.5-5.1); Sodium 137 mmol/L (136-145)
[2018-06-05] MEDS ORDERED: Furosemide 20 MG TAB PO SCH (17:00)
[2018-06-05] MEDS ORDERED: Gabapentin 100 MG CAP PO SCH (18:00)
[2018-06-05] MEDS: Ondansetron HCl/PF 4 MG/2 ML Vial IVP PRN (20:34)
[2018-06-05] MEDS: Famotidine 20 MG TAB PO SCH ×2 (21:06→22:14)
[2018-06-05] MEDS: Melatonin 3 MG TAB PO SCH ×2 (21:06→22:14)
[2018-06-05] MEDS: Gabapentin 100 MG CAP PO SCH ×2 (21:06→22:14)
--- NOTE | 2018-06-05 22:01 | PDOC.PN ---
- Subjective Encounter Start Date: 06/05/18 Encounter Start Time: 09:00 Subjective: pt up in bed has pain to his left calf area - Objective Resuscitation Status: Resuscitation Status FULL:Full Resuscitation Vital Signs & Weight: Vital Signs (12 hours) Temp 06/05/18 20:00 98.5 F 06/05/18 16:00 98.5 F 06/05/18 12:00 97.9 F 06/05/18 11:00 98.4 F Weight Admit Weight 193 lb Weight 193 lb 6.4 oz Most Recent Monitor Data Heart Rate from ECG 104 NIBP 159/54 NIBP BP-Mean 120 Respiration from ECG 23 SpO2 93 I&O: 06/04/18 06/05/18 06/06/18 06:59 06:59 06:59 Intake Total 2550 2304 Output Total 225 858 Balance 2325 1446 Result Diagrams: 06/05/18 18:50 06/05/18 15:56 Additional Labs: Accuchecks 06/05/18 00:35 POC Glucose 234 H Phys Exam - Physical Examination Neck: no nodes, no JVD, supple, full ROM Respiratory: no wheezing, no rales, no rhonchi, wheezing present, clear to auscultation bilateral Cardiovascular: RRR, no significant murmur, no rub, gallop, irregular Gastrointestinal: soft, non-tender, no distention, positive bowel sounds left calf hematoma Dx/Plan (1) Hypovolemia Code(s): E86.1 - HYPOVOLEMIA Status: Acute (2) Hematoma Code(s): T14.8XXA - OTHER INJURY OF UNSPECIFIED BODY REGION, INITIAL ENCOUNTER Status: Acute (3) Acute blood loss anemia Code(s): D62 - ACUTE POSTHEMORRHAGIC ANEMIA Status: Acute - Plan pt had hypovolemia shock last night due to blood loss in her hematoma -: she has received ffp's and blood transfusion, hh is stable -: when bp stable will start pt on iv lasix * . Review of Systems - Review of Systems ENT: negative: Ear Pain, Ear Discharge, Nose Pain, Nose Discharge, Nose Congestion, Mouth Pain, Mouth Swelling, Throat Pain, Throat Swelling, Other Respiratory: negative: Cough, Dry, Shortness of Breath, Hemoptysis, SOB with Excertion, Pleuritic Pain, Sputum, Wheezing Cardiovascular: negative: chest pain, palpitations, orthopnea, paroxysmal nocturnal dyspnea, edema, light headedness, other Musculoskeletal: Leg Pain - Medications/Allergies Allergies/Adverse Reactions: Allergies Allergy/AdvReac Type Severity Reaction Status Date / Time Penicillins Allergy Unknown Verified 06/04/18 18:32 nitrofurantoin Allergy Verified 06/04/18 18:33 [From Macrobid] sulfamethoxazole Allergy Verified 06/04/18 18:33 [From Bactrim] trimethoprim [From Bactrim] Allergy Verified 06/04/18 18:33 Medications: Current Medications Hydrocodone Bitart/Acetaminophen ([place] 5/325) 1 tab PO Q6H PRN PRN Reason: Pain Last Admin: 06/05/18 15:44 Dose: 1 tab Allopurinol (Zyloprim) 100 mg PO DAILY [facility] Last Admin: 06/05/18 09:14 Dose: Not Given Duloxetine HCl (Cymbalta) 30 mg PO DAILY [facility] Last Admin: 06/05/18 09:14 Dose: Not Given Famotidine (Pepcid) 20 mg PO 2100 [facility] Last Admin: 06/05/18 21:06 Dose: Not Given Fentanyl (Sublimaze) 25 mcg SLOW IVP Q1H PRN PRN Reason: PAIN IF UNABLE TO TAKE PO Last Admin: 06/05/18 21:53 Dose: 25 mcg Gabapentin (Neurontin) 200 mg PO [facility] Last Admin: 06/05/18 21:06 Dose: Not Given Sodium Chloride (Normal Saline 0.9%) 1,000 mls @ 100 mls/hr IV .Q10H [facility] Last Admin: 06/05/18 20:34 Dose: 1,000 mls Melatonin (Melatonin) 9 mg PO [facility] Last Admin: 06/05/18 21:06 Dose: Not Given Ondansetron HCl (Zofran) 4 mg IVP Q6H PRN PRN Reason: Nausea/Vomiting Last Admin: 06/05/18 20:34 Dose: 4 mg
[2018-06-05] MEDS ORDERED: HYDROcodone/Acetaminophen 7.5/325 mg Tablet PO PRN ×2 (23:45)
[2018-06-05] MEDS ORDERED: traMADol HCl 50 MG TAB PO PRN ×2 (23:45)
[2018-06-06 00:17] LABS: Hemoglobin 9.3 g/dL (12.0-16.0)
--- NOTE | 2018-06-06 02:31 | CON ---
DATE OF CONSULTATION: 06/06/2018 REASON FOR CONSULTATION: Right leg hematoma. HISTORY OF PRESENT ILLNESS: Ms. Trinidad is an 82-year-old woman whose leg was apparently pinched or injured by her Irma lift when she was being transferred on . She was brought into the [facility] because of severe swelling and discoloration of her right leg and was found to have a large hemat aubrey. She had an episode of hypotension and adequate IV access was unable to be obtained, so an attem pt at a central line was made by her Medicine Service. Unfortunately, the line was placed in the rig ht carotid artery. Cardiovascular Surgery was consulted and they placed a femoral line and after she had received FFP, the carotid line was removed and pressure was held. She has not had any mental st atus changes or expanding hematoma related to this. She has been transfused for her hypotension and blood loss and seems to be responding to this. Her vitals have stabilized, and her H and H has impro giovanna. The nurses state that when she was transferred to the ICU, she had a thin layer of skin overlyi ng a large blood clot on her left lateral leg, but since her admission to the ICU, the skin has mulu d back, and the blood clot has become exposed. The patient is chronically anticoagulated for a histo ry of atrial fibrillation as well as 2 episodes of DVT. She does have a strong family history of blo od clots that has not been diagnosed with a specific hypercoagulable disorder. 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 This was aspirated at another clinic and cult ures are growing Staph epidermidis. PAST SURGICAL HISTORY: Right knee replacement, cataracts, and cholecystectomy. SOCIAL HISTORY: The patient does not have any alcohol, drug, or tobacco use and has a very supportiv e family with both daughters at the bedside. She does not ambulate for many years but does use her l egs to stand and pivot to assist with transfers, although she cannot bear all of her own weight. ALLERGIES: She reports an allergy to PENICILLIN. OUTPATIENT MEDICATIONS: Include albuterol nebulizers, vitamin C, vitamin B12, docusate, estradiol va ginal cream, iron, Flonase, Lasix, gabapentin, p.r.n. [place], Lactobacillus, magnesium oxide, Benicar, Protonix, potassium, pravastatin, p.r.n. tramadol. Coumadin 3 mg on Friday, Friday and Friday and 6 mg on Friday, , Friday and Friday, allopurinol, isosorbide dinitrate, melatonin, and m ethyldopa. INPATIENT MEDICATIONS: Include allopurinol, Cymbalta, Pepcid, gabapentin, p.r.n. [place] and melatonin , meropenem, methyldopa. FAMILY HISTORY: Clotting disorders. REVIEW OF SYSTEMS: Ten-system review of systems is negative for any acute complaints except for pain in her leg at the site of her hematoma. PHYSICAL EXAMINATION: VITAL SIGNS: The patient is afebrile, heart rate 102, blood pressure 165/59, respirations 18, 94% sa turated on room air. GENERAL: Reveals a pleasant elderly woman in no acute distress. She is not pale or diaphoretic. Sh e is not flushed or toxic. She is not jaundiced or icteric. HEENT: Unremarkable. NECK: Supple, without lymphadenopathy or palpable thyroid nodules. HEART: Regular in its rate and rhythm with a pansystolic murmur, which is audible over the entire pr ecordium and radiates to the left axilla, has a slightly vibratory nature. No gallops or rubs are ap preciated. LUNGS: Clear to auscultation bilaterally. ABDOMEN: Soft, nontender, and nondistended. EXTREMITIES: Warm and well perfused, although chronically swollen. She has normal capillary refill. Pedal pulses are difficult to appreciate due to the edema but appeared to be present. She has a ve ry large hematoma in the left lateral calf extending anteriorly and posteriorly for about half the ci rcumference of the leg. The skin overlying this hematoma is discolored and dark and there has been d e-epithelialization of a large portion of this. There is a large clot lying on the bed next to her l eg, which was found to be contained under the desquamated epithelium and a full-thickness defect in t he skin laterally from which the clot has originated. ASSESSMENT: A large hematoma of the left calf with potential loss of viability of the overlying skin due to pressure necrosis. I have recommended evacuation of the clot in the operating room. Unfortu nately, the patient had eaten a full meal shortly before I saw her, so the decision was made to partl y evacuate the hematoma at the bedside to relieve the pressure on the leg and take her to the operati ng room in the morning for full evacuation of the hematoma. This was accomplished by bluntly breakin g up some of the hematoma and removing it from the leg. Following this, the leg was softer and less painful for the patient. There was no active bleeding and the clot all appeared to be old organized clot. The nurses are going to keep a close eye on her overnight and call me if there is any active b leeding or expansion of the hematoma. The patient has normal sensation and movement of the foot dist al to the hematoma and this all appears to be confined to the subcutaneous space. She will require p rolonged wound treatments with a VAC dressing and likely eventual skin grafting depending on the amou nt of full-thickness skin loss and going to be conservative with excision of skin and try to preserve as much viable skin as possible, but I anticipate that she will ultimately require a skin grafting. Plastic Surgery will be consulted for this at a later stay. The patient's daughters had multiple qu estions which were answered. We did briefly discuss the possibility of amputation rather than procee ding with a prolonged course of wound treatment and skin grafting in this nonambulatory patient, but since she still uses her legs to assist with pivoting and transfer. They decided to proceed with sarah cuation and wound treatment instead.
[2018-06-06] MEDS: Sodium Chloride 0.9% 1,000 ML IV SCH ×2 (05:33→19:38)
[2018-06-06] MEDS ORDERED: Fentanyl 100 MCG/2 ML VIAL ONE ×2 (07:32→09:55)
[2018-06-06] MEDS ORDERED: Lidocaine 2% Jelly 5 ML TUBE ONE (07:32)
[2018-06-06] MEDS ORDERED: Bupivacaine/Epinephrine 0.25% 30 ML VIAL ONE (07:42)
[2018-06-06] MEDS ORDERED: Fentanyl 100 MCG/2 ML VIAL SLOW IVP SCH (07:45)
[2018-06-06 08:21] LABS: INR-International Normal Ratio 1.1; PTT 25.8 SEC (22.9-36.1); Prothrombin Time 14.3 SEC (12.0-14.7)
[2018-06-06 08:28] LABS: Anion Gap 7 mmol/L (10-20); BUN (Urea Nitrogen) 36 mg/dL (9.8-20.1); Calc. Creatinine Clearance 50 mL/min (70-130); Calcium 8.8 mg/dL (7.8-10.44); Carbon Dioxide 31 mmol/L (23-31); Chloride 106 mmol/L (98-107); Estimated GFR-MDRD 43; Glucose 111 mg/dL (83-110); Potassium 4.4 mmol/L (3.5-5.1); Sodium 140 mmol/L (136-145)
[2018-06-06] MEDS ORDERED: Ondansetron HCl/PF 4 MG/2 ML Vial IVP PRN (08:32)
[2018-06-06] MEDS ORDERED: PROPOFOL 200 MG/20 ML VIAL ONE (11:11)
[2018-06-06] MEDS ORDERED: Glycopyrrolate 0.2 MG/ML 5 ML SYRINGE ONE (11:11)
[2018-06-06] MEDS ORDERED: Dexamethasone 20 MG/5 ML VIAL ONE (11:11)
[2018-06-06] MEDS ORDERED: Ondansetron HCl/PF 4 MG/2 ML Vial ONE (11:11)
[2018-06-06] MEDS ORDERED: Lidocaine 1% PF 5 ML VIAL ONE (11:11)
[2018-06-06] MEDS: Allopurinol 100 MG TAB PO SCH (11:27)
[2018-06-06] MEDS: DULoxetine 30 MG CAP PO SCH (11:27)
[2018-06-06] MEDS ORDERED: traMADol HCl 50 MG TAB PO PRN ×2 (13:34→13:41)
[2018-06-06] MEDS ORDERED: Furosemide 40 MG/4 ML VIAL SLOW IVP SCH (13:45)
[2018-06-06] MEDS ORDERED: HYDROcodone/Acetaminophen 7.5/325 mg Tablet PO PRN (15:55)
--- NOTE | 2018-06-06 17:42 | PRG ---
DATE OF SERVICE: 06/06/2018 SERVICE: Pulmonary Medicine. INTERVAL HISTORY: The patient is doing really well from a respiratory standpoint. She got multiple units of blood. She had a fantastic rise in her hemoglobin level. She went up to 11.3 and has now s tabilized is now slowly dropping again. Most recently, she has been dropping down to 9.3. She denie s any current chest pain, nausea, vomiting, fevers or chills. She has no shortness of breath. She i s not coughing up any sputum. Her only complaint at this point is really just leg discomfort. She w ould like to have her pain medications as she takes them at home. I will modify them to meet those n eeds. Furthermore, she has not had a bowel movement in a couple of days and is concerned about that. She is tolerating p.o. and she has no specific complaints otherwise. PHYSICAL EXAMINATION: VITAL SIGNS: Afebrile, pulse 75, blood pressure 167/68, respirations 16, saturation 93% on 2 liters nasal cannula. GENERAL: The patient is awake, alert, no apparent distress. LUNGS: Decent air entry. Dependent crackles are minimal. No prolonged expiratory phase or wheezing is appreciated. HEART: Normal rate, regular. ABDOMEN: Soft, nontender, nondistended. Bowel sounds are positive. MUSCULOSKELETAL: No cyanosis or clubbing. There is 2+ pitting in the bilateral lower extremities. Left lower extremity is wrapped. GENITOURINARY: Schroeder catheter in place. NEUROLOGIC: Grossly nonfocal. LABORATORY DATA: Hemoglobin 9.3. Creatinine is down trending to 1.2. Basic metabolic profile is ot herwise unremarkable. ASSESSMENT: 1. Hematoma of the left lateral leg, status post evacuation. 2. Acute blood loss anemia, stabilizing. 3. Acute kidney injury, resolving. 4. History of atrial fibrillation, pulmonary embolism, and deep venous thrombosis. DISCUSSION AND PLAN: I will resume some of her rate control medications. Anticoagulation is current ly on hold. I am going to rearrange some of her pain medications as requested by the patient herself . We will add some senna scheduled twice daily, which we can decrease if she gets loose stools. IV fluids will be interrupted as she is tolerating p.o. The patient has no further requirements for inp atient Pulmonary or Critical Care opinion. As such, I will sign off. Please call with additional qu estions or concerns moving forward.
[2018-06-06] MEDS: Acetaminophen 500 MG TAB PO PRN (17:45)
[2018-06-06] MEDS: Ferrous Sulfate 325 MG TAB PO SCH (18:55)
--- NOTE | 2018-06-06 19:00 | PDOC.PN ---
- Subjective Encounter Start Date: 06/06/18 Encounter Start Time: 12:30 Subjective: pt up in bed no complains - Objective Resuscitation Status: Resuscitation Status FULL:Full Resuscitation Vital Signs & Weight: Vital Signs (12 hours) Temp Pulse Resp BP Pulse Ox 06/06/18 10:30 97.7 F 75 16 167/68 H 93 L 06/06/18 08:00 98.8 F 90 18 06/06/18 07:00 98.8 F Weight Admit Weight 193 lb Weight 193 lb 6.4 oz Most Recent Monitor Data Heart Rate from ECG 96 NIBP 150/58 NIBP BP-Mean 79 Respiration from ECG 21 SpO2 89 I&O: 06/05/18 06/06/18 06/07/18 06:59 06:59 06:59 Intake Total 2550 3464 Output Total 225 1678 35 Balance 2325 1786 -35 Result Diagrams: 06/06/18 00:05 06/06/18 08:00 Phys Exam - Physical Examination Neck: no nodes, no JVD, supple, full ROM Respiratory: no wheezing, no rales, no rhonchi, wheezing present, clear to auscultation bilateral Cardiovascular: RRR, no significant murmur, no rub, gallop, irregular Gastrointestinal: soft, non-tender, no distention, positive bowel sounds Musculoskeletal: edema present bilateral lower legs, left leg wrapped Dx/Plan (1) Hypovolemia Code(s): E86.1 - HYPOVOLEMIA Status: Acute (2) Hematoma Code(s): T14.8XXA - OTHER INJURY OF UNSPECIFIED BODY REGION, INITIAL ENCOUNTER Status: Acute (3) Acute blood loss anemia Code(s): D62 - ACUTE POSTHEMORRHAGIC ANEMIA Status: Acute - Plan will give pt one dose of lasix -: hh stable, vitals stable will continue home meds -: pt s/p evacuation of hematoma from her left calf area * . Review of Systems - Review of Systems ENT: negative: Ear Pain, Ear Discharge, Nose Pain, Nose Discharge, Nose Congestion, Mouth Pain, Mouth Swelling, Throat Pain, Throat Swelling, Other Respiratory: negative: Cough, Dry, Shortness of Breath, Hemoptysis, SOB with Excertion, Pleuritic Pain, Sputum, Wheezing Cardiovascular: negative: chest pain, palpitations, orthopnea, paroxysmal nocturnal dyspnea, edema, light headedness, other Gastrointestinal: negative: Nausea, Vomiting, Abdominal Pain, Diarrhea, Constipation, Melena, Hematochezia, Other Musculoskeletal: Leg Pain - Medications/Allergies Allergies/Adverse Reactions: Allergies Allergy/AdvReac Type Severity Reaction Status Date / Time Penicillins Allergy Unknown Verified 06/04/18 18:32 nitrofurantoin Allergy Verified 06/04/18 18:33 [From Macrobid] sulfamethoxazole Allergy Verified 06/04/18 18:33 [From Bactrim] trimethoprim [From Bactrim] Allergy Verified 06/04/18 18:33 Medications: Current Medications Acetaminophen (Tylenol) 500 mg PO Q6H PRN PRN Reason: MILD PAIN (1-3) Last Admin: 06/06/18 17:45 Dose: 500 mg Hydrocodone Bitart/Acetaminophen ([place] 10/325) 1 tab PO HS PRN PRN Reason: Moderate to Severe Pain at HS Allopurinol (Zyloprim) 100 mg PO DAILY [facility] Last Admin: 06/06/18 11:27 Dose: Not Given Atorvastatin Calcium (Lipitor) 10 mg PO HS [facility] Docusate Sodium (Colace) 100 mg PO BID [facility] Duloxetine HCl (Cymbalta) 30 mg PO DAILY [facility] Last Admin: 06/06/18 11:27 Dose: Not Given Ferrous Sulfate (Feosol) 325 mg PO BID[facility] Furosemide (Lasix) 40 mg PO DAILY [facility] Gabapentin (Neurontin) 200 mg PO HS [facility] Last Admin: 06/05/18 22:14 Dose: 200 mg Melatonin (Melatonin) 9 mg PO [facility] Last Admin: 06/05/18 22:14 Dose: 9 mg Morphine Sulfate (Morphine) 2 mg SLOW IVP Q4H PRN PRN Reason: Breakthrough Pain Last Admin: 06/06/18 05:33 Dose: 2 mg Non-Formulary Medication (Olmesartan Medoxomil [Benicar]) 20 mg PO DAILY [facility] Ondansetron HCl (Zofran) 4 mg IVP Q6H PRN PRN Reason: Nausea/Vomiting Last Admin: 06/05/18 20:34 Dose: 4 mg Pantoprazole Sodium (Protonix) 40 mg PO DAILY [facility] Senna/Docusate Sodium (Senokot S) 2 tab PO BID [facility] Sodium Chloride (Flush - Normal Saline) 10 ml IVF Q12HR [facility] Sodium Chloride (Flush - Normal Saline) 10 ml IVF PRN PRN PRN Reason: Saline Flush Tramadol HCl (Ultram) 50 mg PO Q6H PRN PRN Reason: Moderate Pain (4-6)
[2018-06-06] MEDS: Senokot S 8.6-50 MG TAB PO SCH (20:27)
[2018-06-06] MEDS: Docusate 100 MG CAP PO SCH (20:27)
[2018-06-06] MEDS: Melatonin 3 MG TAB PO SCH (20:30)
[2018-06-06] MEDS: Gabapentin 100 MG CAP PO SCH (20:31)
[2018-06-06] MEDS: Atorvastatin Calcium 10 MG TAB PO SCH (20:32)
[2018-06-06] MEDS: HYDROcodone/Acetaminophen 10/325 mg Tablet PO PRN (20:41)
[2018-06-06] MEDS ORDERED: Non-Formulary Item 1 EACH (Ferrous Sulfate [Ferrous Sulfate] 325 MG) PO SCH (21:00)
[2018-06-06] MEDS ORDERED: Pravastatin Sodium 40 MG TAB PO SCH (21:00)
[2018-06-07 05:13] LABS: Anion Gap 11 mmol/L (10-20); BUN (Urea Nitrogen) 27 mg/dL (9.8-20.1); Calc. Creatinine Clearance 62 mL/min (70-130); Calcium 9.1 mg/dL (7.8-10.44); Carbon Dioxide 31 mmol/L (23-31); Chloride 102 mmol/L (98-107); Estimated GFR-MDRD 55; Glucose 104 mg/dL (83-110); Potassium 4.5 mmol/L (3.5-5.1); Sodium 139 mmol/L (136-145)
[2018-06-07 06:31] LABS: Band 15 % (5-11); Hemoglobin 7.8 g/dL (12.0-16.0); Lymphocytes 19 % (21-51); MDiff Complete? YES; Mean Corpuscular HGB CONC 33.5 g/dL (32.0-36.0); Mean Corpuscular Volume 95.3 fL (78.0-98.0); Mean Platelet Volume 7.1 fL (7.4-10.4); Monocytes 6 % (0-10); Neutrophil 59 % (42-75); PLT Morphology Comment Appears Adequate; Platelet Count 171 thou/uL (130-400); RBC Distribution Width 13.8 % (11.5-14.5); Reactive Lymphocytes 1 % (0-10); Red Blood Cell (RBC) Count 2.44 mill/uL (4.20-5.40); White Blood Cell (WBC) Count 10.1 thou/uL (4.8-10.8)
[2018-06-07] MEDS: Acetaminophen 500 MG TAB PO PRN ×2 (06:31→15:17)
[2018-06-07] MEDS: traMADol HCl 50 MG TAB PO PRN ×2 (06:32→15:16)
[2018-06-07] MEDS: Docusate 100 MG CAP PO SCH ×2 (09:11→21:22)
[2018-06-07] MEDS: Ferrous Sulfate 325 MG TAB PO SCH ×2 (09:11→17:55)
[2018-06-07] MEDS: Senokot S 8.6-50 MG TAB PO SCH ×2 (09:11→21:22)
[2018-06-07] MEDS: Furosemide 40 MG TAB PO SCH (09:12)
[2018-06-07] MEDS: Allopurinol 100 MG TAB PO SCH (09:12)
[2018-06-07] MEDS: DULoxetine 30 MG CAP PO SCH (09:12)
[2018-06-07 13:18] LABS: Hemoglobin 8.3 g/dL (12.0-16.0)
--- NOTE | 2018-06-07 18:13 | PDOC.GSPN ---
Surgery Progress Note: Subj - Subjective Narrative: Patient is feeling better and not having much pain in her leg. Her H&H drifted down somewhat but seems to have stabilized. The VAC dressing is in place. We will plan to replace this tomorrow and place her on a Friday schedule. From a surgical standpoint she will likely be able to go back home with home health for VAC changes. Surgery Progress Note: Obj - Vital signs Vital signs: Vital Signs - Most Recent Temp Pulse Resp BP Pulse Ox 98.2 F 87 18 146/70 H 93 L 06/07/18 15:09 06/07/18 15:09 06/07/18 15:09 06/07/18 15:09 06/07/18 15:09 Surgery Progress Note: Results - Labs Result Diagrams: 06/07/18 13:01 06/07/18 04:35 Lab results: Laboratory Results - last 24 hr 06/07/18 06/07/18 04:35 13:01 WBC 10.1 RBC 2.44 L Hgb 7.8 L 8.3 L Hct 23.3 L 25.1 L MCV 95.3 MCH 32.0 H MCHC 33.5 RDW 13.8 Plt Count 171 MPV 7.1 L Neutrophils % (Manual) 59 Band Neuts % (Manual) 15 H Lymphocytes % (Manual) 19 L Reactive Lymphs % 1 Monocytes % (Manual) 6 Plt Morphology Comment Appears Adequate
[2018-06-07] MEDS ORDERED: Morphine 4 MG/ML VIAL SLOW IVP PRN (18:14)
[2018-06-07] MEDS: HYDROcodone/Acetaminophen 10/325 mg Tablet PO PRN (20:03)
[2018-06-07] MEDS: Atorvastatin Calcium 10 MG TAB PO SCH (21:21)
[2018-06-07] MEDS: Melatonin 3 MG TAB PO SCH (21:22)
[2018-06-07] MEDS: Gabapentin 100 MG CAP PO SCH (21:22)
--- NOTE | 2018-06-07 21:40 | PDOC.PN ---
- Subjective Encounter Start Date: 06/07/18 Encounter Start Time: 11:30 Subjective: pt up in bed no complains - Objective Resuscitation Status: Resuscitation Status FULL:Full Resuscitation Vital Signs & Weight: Vital Signs (12 hours) Temp Pulse Resp BP Pulse Ox 06/07/18 20:10 98.4 F 87 20 165/83 H 94 L 06/07/18 15:09 98.2 F 87 18 146/70 H 93 L 06/07/18 10:56 98.3 F 90 16 170/78 H 97 Weight Admit Weight 193 lb Weight 193 lb 6.4 oz Most Recent Monitor Data Heart Rate from ECG 96 NIBP 150/58 NIBP BP-Mean 79 Respiration from ECG 21 SpO2 89 I&O: 06/06/18 06/07/18 06/08/18 06:59 06:59 06:59 Intake Total 3464 2000 900 Output Total 1678 3105 800 Balance 1786 -1105 100 Result Diagrams: 06/07/18 13:01 06/07/18 04:35 Phys Exam - Physical Examination Respiratory: no wheezing, no rales, no rhonchi, wheezing present, clear to auscultation bilateral Cardiovascular: RRR, no significant murmur, no rub, gallop, irregular Gastrointestinal: soft, non-tender, no distention, positive bowel sounds left leg wrapped Dx/Plan (1) Hypovolemia Code(s): E86.1 - HYPOVOLEMIA Status: Acute (2) Hematoma Code(s): T14.8XXA - OTHER INJURY OF UNSPECIFIED BODY REGION, INITIAL ENCOUNTER Status: Acute (3) Acute blood loss anemia Code(s): D62 - ACUTE POSTHEMORRHAGIC ANEMIA Status: Acute - Plan pt's hh is low stable continue to montior -: will need to ask surgery when it is ok to restart pt's coumadin -: she will need snf -: continue abx until cx is back * . Review of Systems - Review of Systems Respiratory: negative: Cough, Dry, Shortness of Breath, Hemoptysis, SOB with Excertion, Pleuritic Pain, Sputum, Wheezing Cardiovascular: negative: chest pain, palpitations, orthopnea, paroxysmal nocturnal dyspnea, edema, light headedness, other Gastrointestinal: negative: Nausea, Vomiting, Abdominal Pain, Diarrhea, Constipation, Melena, Hematochezia, Other Musculoskeletal: Leg Pain - Medications/Allergies Allergies/Adverse Reactions: Allergies Allergy/AdvReac Type Severity Reaction Status Date / Time Penicillins Allergy Unknown Verified 06/04/18 18:32 nitrofurantoin Allergy Verified 06/04/18 18:33 [From Macrobid] sulfamethoxazole Allergy Verified 06/04/18 18:33 [From Bactrim] trimethoprim [From Bactrim] Allergy Verified 06/04/18 18:33 Medications: Current Medications Acetaminophen (Tylenol) 500 mg PO Q6H PRN PRN Reason: MILD PAIN (1-3) Last Admin: 06/07/18 15:17 Dose: 500 mg Hydrocodone Bitart/Acetaminophen ([place] 10/325) 1 tab PO HS PRN PRN Reason: Moderate to Severe Pain at HS Last Admin: 06/07/18 20:03 Dose: 1 tab Allopurinol (Zyloprim) 100 mg PO DAILY [facility] Last Admin: 06/07/18 09:12 Dose: 100 mg Atorvastatin Calcium (Lipitor) 10 mg PO HS [facility] Last Admin: 06/07/18 21:21 Dose: Not Given Docusate Sodium (Colace) 100 mg PO BID [facility] Last Admin: 06/07/18 21:22 Dose: 100 mg Duloxetine HCl (Cymbalta) 30 mg PO DAILY [facility] Last Admin: 06/07/18 09:12 Dose: 30 mg Ferrous Sulfate (Feosol) 325 mg PO BID-[facility] Last Admin: 06/07/18 17:55 Dose: 325 mg Furosemide (Lasix) 40 mg PO DAILY [facility] Last Admin: 06/07/18 09:12 Dose: 40 mg Gabapentin (Neurontin) 200 mg PO [facility] Last Admin: 06/07/18 21:22 Dose: 200 mg Lidocaine HCl (Xylocaine 4% Topical L[place]) 60 ml TOP DAILY [facility] Melatonin (Melatonin) 9 mg PO [facility] Last Admin: 06/07/18 21:22 Dose: 9 mg Morphine Sulfate (Morphine) 2 mg SLOW IVP Q4H PRN PRN Reason: Breakthrough Pain Last Admin: 06/06/18 05:33 Dose: 2 mg Morphine Sulfate (Morphine) 4 mg SLOW IVP DAILYPRN PRN PRN Reason: Pain Olmesartan (Benicar) 20 mg PO DAILY [facility] Last Admin: 06/07/18 09:11 Dose: 20 mg Ondansetron HCl (Zofran) 4 mg IVP Q6H PRN PRN Reason: Nausea/Vomiting Last Admin: 06/05/18 20:34 Dose: 4 mg Pantoprazole Sodium (Protonix) 40 mg PO DAILY [facility] Last Admin: 06/07/18 09:12 Dose: 40 mg Senna/Docusate Sodium (Senokot S) 2 tab PO BID [facility] Last Admin: 06/07/18 21:22 Dose: 2 tab Sodium Chloride (Flush - Normal Saline) 10 ml IVF Q12HR [facility] Last Admin: 06/07/18 21:25 Dose: 10 ml Sodium Chloride (Flush - Normal Saline) 10 ml IVF PRN PRN PRN Reason: Saline Flush Tramadol HCl (Ultram) 50 mg PO Q6H PRN PRN Reason: Moderate Pain (4-6) Last Admin: 06/07/18 15:16 Dose: 50 mg
[2018-06-08] MEDS: Acetaminophen 500 MG TAB PO PRN ×3 (02:53→17:39)
[2018-06-08] MEDS: traMADol HCl 50 MG TAB PO PRN ×3 (02:53→17:38)
[2018-06-08] MEDS: DULoxetine 30 MG CAP PO SCH (09:12)
[2018-06-08] MEDS: Senokot S 8.6-50 MG TAB PO SCH ×2 (09:12→20:41)
[2018-06-08] MEDS: Ferrous Sulfate 325 MG TAB PO SCH ×2 (09:12→16:24)
[2018-06-08] MEDS: Furosemide 40 MG TAB PO SCH (09:13)
[2018-06-08] MEDS: Allopurinol 100 MG TAB PO SCH (09:13)
[2018-06-08] MEDS: Docusate 100 MG CAP PO SCH ×2 (09:13→20:41)
[2018-06-08] MEDS: Lidocaine 4% Topical Sol 50 ML BOT TOP SCH ×2 (09:51→12:21)
[2018-06-08] MEDS ORDERED: Polyethylene Glycol 3350 17 GM Packet PO SCH (11:15)
[2018-06-08] MEDS: Ondansetron HCl/PF 4 MG/2 ML Vial IVP PRN (12:36)
--- NOTE | 2018-06-08 15:38 | PDOC.GSPN ---
Surgery Progress Note: Subj - Subjective Narrative: Patient is feeling better. Her leg is not hurting too much. VAC change was done with the wound care team. The patient had about another inch of nonviable skin sharply excised from the anterior aspect of her wound. There is about an additional inch of questionably viable skin which will likely ultimately need to be excised, but this was left in place for now. The wound was irrigated and the VAC dressing was replaced. I will consult plastic surgery for ultimate skin grafting, but do not anticipate that the wound will be ready for grafting for another week or two, perhaps longer depending on the patient's clinical course. I do recommend that she remain an inpatient until the next VAC change on Friday, at which time additional debridement will likely be necessary. Surgery Progress Note: Obj - Vital signs Vital signs: Vital Signs - Most Recent Temp Pulse Resp BP Pulse Ox 98.6 F 85 18 178/74 H 94 L 06/08/18 11:35 06/08/18 11:35 06/08/18 11:35 06/08/18 11:35 06/08/18 11:35 Surgery Progress Note: Results - Labs Result Diagrams: 06/07/18 13:01 06/07/18 04:35
--- NOTE | 2018-06-08 15:59 | PDOC.PN ---
- Subjective Encounter Start Date: 06/08/18 Encounter Start Time: 14:10 -: old records requested/rev Pt seen and examined, chart reviewed in its entirety, this is my first visit with this patient No F/C, no N/V/d/c, no CP or SOB, no cough, no GI bleeding left leg plaster tender, daughter reports a good report from Dr Baez, kalin to keep here til at least friday to re-look with VAC change reviewed culture from right knee, CoNS (S epi) from thio broth, anaerobic only All systems reviewed and neg x as above - Objective Resuscitation Status: Resuscitation Status FULL:Full Resuscitation MAR Reviewed: Yes Vital Signs & Weight: Vital Signs (12 hours) Temp Pulse Resp BP Pulse Ox 06/08/18 11:35 98.6 F 85 18 178/74 H 94 L 06/08/18 07:55 98.6 F 85 18 92 L 06/08/18 07:47 98 F 86 16 147/71 H 92 L 06/08/18 04:11 97.7 F 75 18 133/78 95 Weight Admit Weight 193 lb Weight 193 lb 6.4 oz Most Recent Monitor Data Heart Rate from ECG 96 NIBP 150/58 NIBP BP-Mean 79 Respiration from ECG 21 SpO2 89 I&O: 06/07/18 06/08/18 06/09/18 06:59 06:59 06:59 Intake Total 2000 900 Output Total 3105 800 Balance -1105 100 Result Diagrams: 06/07/18 13:01 06/07/18 04:35 Radiology Reviewed by me: Yes EKG Reviewed by me: Yes Phys Exam - Physical Examination Constitutional: NAD HEENT: PERRLA, moist MMs, sclera anicteric, oral pharynx no lesions Neck: no nodes, no JVD, supple, full ROM Respiratory: no wheezing, no rales, no rhonchi, clear to auscultation bilateral Cardiovascular: RRR, no significant murmur, no rub Gastrointestinal: soft, non-tender, no distention, positive bowel sounds Musculoskeletal: edema present RLE in lymphedema wrap, knee wthout fluid or inflammation Neurological: non-focal, normal sensation, moves all 4 limbs Lymphatic: no nodes Psychiatric: normal affect, A&O x 3 Skin: no rash, normal turgor, cap refill <2 seconds Dx/Plan (1) Obesity Code(s): E66.9 - OBESITY, UNSPECIFIED Status: Chronic Qualifiers: Obesity classification: adult class 2 (BMI 35 - 39.9) Body mass index: unspecified BMI (2) Acute blood loss anemia Code(s): D62 - ACUTE POSTHEMORRHAGIC ANEMIA Status: Acute (3) Hematoma Code(s): T14.8XXA - OTHER INJURY OF UNSPECIFIED BODY REGION, INITIAL ENCOUNTER Status: Acute (4) Hypovolemia Code(s): E86.1 - HYPOVOLEMIA Status: Resolved (5) ALEJANDRA (acute kidney injury) Code(s): N17.9 - ACUTE KIDNEY FAILURE, UNSPECIFIED Status: Resolved Comment : Improving (6) Hypokalemia Code(s): E87.6 - HYPOKALEMIA Status: Acute (7) UTI (urinary tract infection) Status: Resolved Qualifiers: Urinary tract infection type: acute cystitis Hematuria presence: without hematuria Qualified Code(s): N30.00 - Acute cystitis without hematuria Comment: start rocephin, follow up on culture - Plan cont current plan of care, plan discussed w/ family, continue antibiotics, PT/OT * .
[2018-06-08] MEDS: cefTRIAXone\\ROCEPHIN 2 GM in Sodium Chloride 0.9% 100 ML IVPB SCH (16:24)
[2018-06-08] MEDS: Bisacodyl 10 MG SUPP PR PRN (17:41)
[2018-06-08] MEDS: HYDROcodone/Acetaminophen 10/325 mg Tablet PO PRN (20:39)
[2018-06-08] MEDS: Atorvastatin Calcium 10 MG TAB PO SCH (20:41)
[2018-06-08] MEDS: Gabapentin 100 MG CAP PO SCH (20:42)
[2018-06-08] MEDS: Melatonin 3 MG TAB PO SCH (20:43)
[2018-06-09] MEDS: Acetaminophen 500 MG TAB PO PRN ×4 (00:29→23:41)
[2018-06-09] MEDS: traMADol HCl 50 MG TAB PO PRN ×4 (00:30→23:41)
[2018-06-09] MEDS ORDERED: Polyethylene Glycol 3350 17 GM Packet PO SCH (09:00)
[2018-06-09] MEDS: DULoxetine 30 MG CAP PO SCH (10:07)
[2018-06-09] MEDS: Allopurinol 100 MG TAB PO SCH (10:07)
[2018-06-09] MEDS: Vit A,C & E/Lutein/Minerals Tablet PO SCH (10:07)
[2018-06-09] MEDS: Docusate 100 MG CAP PO SCH ×2 (10:07→20:14)
[2018-06-09] MEDS: Ferrous Sulfate 325 MG TAB PO SCH ×2 (10:08→16:26)
[2018-06-09] MEDS: Senokot S 8.6-50 MG TAB PO SCH ×2 (10:08→20:16)
[2018-06-09] MEDS: Furosemide 40 MG TAB PO SCH (10:08)
[2018-06-09] MEDS: Zinc Sulfate 220 MG CAP PO SCH (10:08)
[2018-06-09] MEDS: Lidocaine 4% Topical Sol 50 ML BOT TOP SCH (10:09)
[2018-06-09] MEDS: Bisacodyl 10 MG SUPP PR PRN (10:22)
[2018-06-09 12:03] LABS: #Eosinphils 0.2 thou/uL (0.0-0.7); #Lymphocytes 1.1 thou/uL (1.20-3.40); #Monocytes 0.8 thou/uL (0.11-0.59); #Neutrophils 7.3 thou/uL (1.40-6.50); %Basophils 0.2 % (0.0-1.0); %Eosinophils 1.7 % (0.0-10.0); %Monocytes 8.5 % (0.0-10.0); %Neutrophils 77.7 % (42.0-75.0); Hemoglobin 8.7 g/dL (12.0-16.0); Mean Corpuscular HGB CONC 33.9 g/dL (32.0-36.0); Mean Corpuscular Hemoglobin 32.9 pg (27.0-31.0); Mean Corpuscular Volume 97.1 fL (78.0-98.0); Platelet Count 269 thou/uL (130-400); RBC Distribution Width 14.4 % (11.5-14.5); Red Blood Cell (RBC) Count 2.64 mill/uL (4.20-5.40); White Blood Cell (WBC) Count 9.4 thou/uL (4.8-10.8)
[2018-06-09 12:35] LABS: Anion Gap 10 mmol/L (10-20); BUN (Urea Nitrogen) 18 mg/dL (9.8-20.1); Calc. Creatinine Clearance 57 mL/min (70-130); Carbon Dioxide 32 mmol/L (23-31); Chloride 98 mmol/L (98-107); Estimated GFR-MDRD 50; Glucose 106 mg/dL (83-110); Magnesium 1.5 mg/dL (1.6-2.6); Potassium 3.9 mmol/L (3.5-5.1); Sodium 136 mmol/L (136-145)
[2018-06-09] MEDS ORDERED: Magnesium 2 GM/NS 0.9% 100 ML 2 GM in Premix Bag 1 BAG IVPB SCH (13:45)
--- NOTE | 2018-06-09 15:03 | PDOC.PN ---
- Subjective Encounter Start Date: 06/09/18 Encounter Start Time: 12:30 follow up for UTI, post traumatic hematoma of left leg post evacuation and VAC placement awaiting surgical decision. regarding discharge tomorrow with VAC change amputation, I&D offered. No f/C, no N/V/d/c, nael IV vanc. All systems reviewed and neg for all except as per HPI - Objective Resuscitation Status: Resuscitation Status FULL:Full Resuscitation MAR Reviewed: Yes Vital Signs & Weight: Vital Signs (12 hours) Temp Pulse Resp BP Pulse Ox 06/09/18 12:14 98.6 F 87 20 156/77 H 93 L 06/09/18 07:41 84 18 120/74 93 L 06/09/18 04:48 97.6 F 81 20 129/74 94 L Weight Admit Weight 193 lb Weight 193 lb 6.4 oz Most Recent Monitor Data Heart Rate from ECG 96 NIBP 150/58 NIBP BP-Mean 79 Respiration from ECG 21 SpO2 89 I&O: 06/08/18 06/09/18 06/10/18 06:59 06:59 06:59 Intake Total 900 1228 Output Total 800 1800 Balance 100 -572 Result Diagrams: 06/09/18 11:48 06/09/18 11:48 Radiology Reviewed by me: Yes Phys Exam - Physical Examination Constitutional: NAD HEENT: PERRLA, moist MMs, sclera anicteric, oral pharynx no lesions Neck: no nodes, no JVD, supple, full ROM Respiratory: no wheezing, no rales, no rhonchi, clear to auscultation bilateral Cardiovascular: RRR, no significant murmur, no rub Gastrointestinal: soft, non-tender, no distention, positive bowel sounds Musculoskeletal: pulses present, edema present left leg VAC C/D/I Neurological: non-focal, normal sensation, moves all 4 limbs Lymphatic: no nodes Psychiatric: normal affect, A&O x 3 Skin: no rash, normal turgor, cap refill <2 seconds Dx/Plan (1) Obesity Code(s): E66.9 - OBESITY, UNSPECIFIED Status: Chronic Qualifiers: Obesity classification: adult class 2 (BMI 35 - 39.9) Body mass index: unspecified BMI (2) Acute blood loss anemia Code(s): D62 - ACUTE POSTHEMORRHAGIC ANEMIA Status: Acute (3) Hematoma Code(s): T14.8XXA - OTHER INJURY OF UNSPECIFIED BODY REGION, INITIAL ENCOUNTER Status: Acute (4) Hypovolemia Code(s): E86.1 - HYPOVOLEMIA Status: Resolved (5) ALEJANDRA (acute kidney injury) Code(s): N17.9 - ACUTE KIDNEY FAILURE, UNSPECIFIED Status: Resolved Comment : Improving (6) Hypokalemia Code(s): E87.6 - HYPOKALEMIA Status: Acute (7) UTI (urinary tract infection) Status: Ruled-out Qualifiers: Urinary tract infection type: acute cystitis Hematuria presence: without hematuria Qualified Code(s): N30.00 - Acute cystitis without hematuria Comment: ruled out - Plan cont current plan of care, plan discussed w/ family, PT/OT, renal social worker, out of bed/ambulate * . follow up on surgery tomorrow to see if she is ready to go or not. plan to go home. hgb trending upward. will discuss timing of coumadin restarting with Dr Baez
[2018-06-09] MEDS: cefTRIAXone\\ROCEPHIN 2 GM in Sodium Chloride 0.9% 100 ML IVPB SCH (16:26)
[2018-06-09] MEDS: HYDROcodone/Acetaminophen 10/325 mg Tablet PO PRN (20:12)
[2018-06-09] MEDS: Gabapentin 100 MG CAP PO SCH (20:14)
[2018-06-09] MEDS: Atorvastatin Calcium 10 MG TAB PO SCH (20:14)
[2018-06-09] MEDS: Melatonin 3 MG TAB PO SCH (20:15)
[2018-06-09] MEDS: Polyethylene Glycol 3350 17 GM Packet PO SCH (20:17)
[2018-06-10 04:32] LABS: #Eosinphils 0.2 thou/uL (0.0-0.7); #Lymphocytes 1.3 thou/uL (1.20-3.40); #Monocytes 0.7 thou/uL (0.11-0.59); #Neutrophils 5.2 thou/uL (1.40-6.50); %Basophils 0.4 % (0.0-1.0); %Eosinophils 2.9 % (0.0-10.0); %Lymphocytes 17.8 % (21.0-51.0); %Monocytes 8.9 % (0.0-10.0); Hemoglobin 7.8 g/dL (12.0-16.0); Mean Corpuscular HGB CONC 33.7 g/dL (32.0-36.0); Mean Corpuscular Hemoglobin 33.3 pg (27.0-31.0); Mean Corpuscular Volume 98.8 fL (78.0-98.0); Mean Platelet Volume 7.3 fL (7.4-10.4); Platelet Count 231 thou/uL (130-400); RBC Distribution Width 14.7 % (11.5-14.5); Red Blood Cell (RBC) Count 2.34 mill/uL (4.20-5.40); White Blood Cell (WBC) Count 7.5 thou/uL (4.8-10.8)
[2018-06-10 04:43] LABS: Anion Gap 7 mmol/L (10-20); BUN (Urea Nitrogen) 25 mg/dL (9.8-20.1); Calc. Creatinine Clearance 61 mL/min (70-130); Calcium 8.9 mg/dL (7.8-10.44); Carbon Dioxide 36 mmol/L (23-31); Chloride 100 mmol/L (98-107); Estimated GFR-MDRD 54; Glucose 99 mg/dL (83-110); Potassium 3.6 mmol/L (3.5-5.1); Sodium 139 mmol/L (136-145)
[2018-06-10] MEDS: Polyethylene Glycol 3350 17 GM Packet PO SCH ×2 (09:19→21:13)
[2018-06-10] MEDS: Acetaminophen 500 MG TAB PO PRN ×2 (09:19→15:18)
[2018-06-10] MEDS: Senokot S 8.6-50 MG TAB PO SCH ×2 (09:19→21:13)
[2018-06-10] MEDS: Vit A,C & E/Lutein/Minerals Tablet PO SCH (09:20)
[2018-06-10] MEDS: DULoxetine 30 MG CAP PO SCH (09:21)
[2018-06-10] MEDS: Allopurinol 100 MG TAB PO SCH (09:21)
[2018-06-10] MEDS: Zinc Sulfate 220 MG CAP PO SCH (09:21)
[2018-06-10] MEDS: Furosemide 40 MG TAB PO SCH (09:21)
[2018-06-10] MEDS: Ferrous Sulfate 325 MG TAB PO SCH ×2 (09:21→17:56)
[2018-06-10] MEDS: Docusate 100 MG CAP PO SCH ×2 (09:21→21:13)
[2018-06-10] MEDS: traMADol HCl 50 MG TAB PO PRN ×2 (09:22→15:18)
[2018-06-10] MEDS: Lidocaine 4% Topical Sol 50 ML BOT TOP SCH (10:25)
[2018-06-10 13:19] LABS: Hemoglobin 9.6 g/dL (12.0-16.0)
--- NOTE | 2018-06-10 15:10 | PDOC.PN ---
- Subjective Encounter Start Date: 06/10/18 Encounter Start Time: 08:45 follow up for leg hematoma and coumadin necrosis S/P evacuation and VAC placement, acute blood loss anemia, hemorrhagic shock and ALEJANDRA VAC container filled up with bloody fluid overnight, no f/C, no N/V/d/C. Good BM this AM. awaiting surgical eval of her wound All systems reviewed adn neg x as above - Objective Resuscitation Status: Resuscitation Status FULL:Full Resuscitation MAR Reviewed: Yes Vital Signs & Weight: Vital Signs (12 hours) Temp Pulse Resp BP Pulse Ox 06/10/18 11:23 98.1 F 92 22 H 171/84 H 92 L 06/10/18 07:55 98.1 F 81 18 151/78 H 92 L 06/10/18 04:21 97.7 F 90 16 132/54 L 95 Weight Admit Weight 193 lb Weight 193 lb 6.4 oz Most Recent Monitor Data Heart Rate from ECG 96 NIBP 150/58 NIBP BP-Mean 79 Respiration from ECG 21 SpO2 89 I&O: 06/09/18 06/10/18 06/11/18 06:59 06:59 06:59 Intake Total 1228 1431 Output Total 1800 1750 Balance -572 -319 Result Diagrams: 06/10/18 13:10 06/10/18 04:13 Phys Exam - Physical Examination Constitutional: NAD HEENT: PERRLA, moist MMs, sclera anicteric, oral pharynx no lesions Neck: no nodes, no JVD, supple, full ROM Respiratory: no wheezing, no rales, no rhonchi, clear to auscultation bilateral Cardiovascular: RRR, no significant murmur, no rub Gastrointestinal: soft, non-tender, no distention, positive bowel sounds Musculoskeletal: edema present Neurological: non-focal, normal sensation, moves all 4 limbs Lymphatic: no nodes Psychiatric: normal affect, A&O x 3 Skin: no rash, normal turgor, cap refill <2 seconds Dx/Plan (1) Obesity Code(s): E66.9 - OBESITY, UNSPECIFIED Status: Chronic Qualifiers: Obesity classification: adult class 2 (BMI 35 - 39.9) Body mass index: unspecified BMI (2) Acute blood loss anemia Code(s): D62 - ACUTE POSTHEMORRHAGIC ANEMIA Status: Acute Comment: Hgb down this AM, recheck at 1pm. follow closely (3) Hematoma Code(s): T14.8XXA - OTHER INJURY OF UNSPECIFIED BODY REGION, INITIAL ENCOUNTER Status: Acute (4) Hypovolemia Code(s): E86.1 - HYPOVOLEMIA Status: Resolved (5) ALEJANDRA (acute kidney injury) Code(s): N17.9 - ACUTE KIDNEY FAILURE, UNSPECIFIED Status: Resolved Comment : Improving (6) Hypokalemia Code(s): E87.6 - HYPOKALEMIA Status: Acute (7) UTI (urinary tract infection) Status: Ruled-out Qualifiers: Urinary tract infection type: acute cystitis Hematuria presence: without hematuria Qualified Code(s): N30.00 - Acute cystitis without hematuria Comment: ruled out - Plan cont current plan of care, plan discussed w/ family, PT/OT, perinatal social worker, out of bed/ambulate * . home with HHC and VAC when cleared b surgery follow up on h/H
[2018-06-10] MEDS: cefTRIAXone\\ROCEPHIN 2 GM in Sodium Chloride 0.9% 100 ML IVPB SCH (15:58)
--- NOTE | 2018-06-10 17:56 | PDOC.GSPN ---
Surgery Progress Note: Subj - Subjective Narrative: Patient is having more pain in her leg today. She finally had results from her laxatives and has been up and down multiple times during the day which has worn her out. The VAC dressing was changed with the wound care team and the wound is looking good. There is a little residual discoloration from the Surgicel that she has a developing bed of early granulation tissue. The wound edges are mostly viable. There is still a questionable area along the anterior lower wound but this was left since it had not clearly demarcated. From a surgical standpoint she is ready to go home with home health care for VAC changes. I have spoken to Dr. Kasper of plastic surgery and he can see her as an outpatient. I expect it will be a month or so before she is ready for grafting. The patient and her family understand that her chronic lymphedema made present some issues with healing a skin graft, but they were not ready to consider amputation since she still uses her legs to pivot and transfer and they feel that it would be more difficult to keep her at home if she underwent amputation. She can follow up in my clinic in a couple weeks for a wound check. Surgery Progress Note: Obj - Vital signs Vital signs: Vital Signs - Most Recent Temp Pulse Resp BP Pulse Ox 98.1 F 92 22 H 171/84 H 92 L 06/10/18 11:23 06/10/18 11:23 06/10/18 11:23 06/10/18 11:23 06/10/18 11:23 Surgery Progress Note: Results - Labs Result Diagrams: 06/10/18 13:10 06/10/18 04:13 Lab results: Laboratory Results - last 24 hr 06/10/18 13:10 Hgb 9.6 L Hct 28.4 L
[2018-06-10] MEDS: HYDROcodone/Acetaminophen 10/325 mg Tablet PO PRN (21:10)
[2018-06-10] MEDS: Atorvastatin Calcium 10 MG TAB PO SCH (21:13)
[2018-06-10] MEDS: Gabapentin 100 MG CAP PO SCH (21:13)
[2018-06-10] MEDS: Melatonin 3 MG TAB PO SCH (21:13)
[2018-06-11] MEDS: traMADol HCl 50 MG TAB PO PRN ×2 (01:08→21:48)
[2018-06-11] MEDS: Acetaminophen 500 MG TAB PO PRN ×2 (01:08→21:49)
[2018-06-11 05:32] LABS: #Eosinphils 0.2 thou/uL (0.0-0.7); #Lymphocytes 1.3 thou/uL (1.20-3.40); #Monocytes 0.6 thou/uL (0.11-0.59); #Neutrophils 4.3 thou/uL (1.40-6.50); %Basophils 0.5 % (0.0-1.0); %Eosinophils 3.4 % (0.0-10.0); %Lymphocytes 19.6 % (21.0-51.0); %Monocytes 8.7 % (0.0-10.0); %Neutrophils 67.8 % (42.0-75.0); Mean Corpuscular HGB CONC 32.8 g/dL (32.0-36.0); Mean Corpuscular Hemoglobin 32.4 pg (27.0-31.0); Mean Corpuscular Volume 98.9 fL (78.0-98.0); Mean Platelet Volume 7.5 fL (7.4-10.4); Platelet Count 278 thou/uL (130-400); RBC Distribution Width 14.8 % (11.5-14.5); Red Blood Cell (RBC) Count 2.46 mill/uL (4.20-5.40); White Blood Cell (WBC) Count 6.4 thou/uL (4.8-10.8)
[2018-06-11 05:40] LABS: Anion Gap 9 mmol/L (10-20); BUN (Urea Nitrogen) 36 mg/dL (9.8-20.1); Calc. Creatinine Clearance 63 mL/min (70-130); Calcium 9.1 mg/dL (7.8-10.44); Carbon Dioxide 34 mmol/L (23-31); Chloride 99 mmol/L (98-107); Estimated GFR-MDRD 56; Glucose 96 mg/dL (83-110); Magnesium 1.8 mg/dL (1.6-2.6); Potassium 3.8 mmol/L (3.5-5.1); Sodium 138 mmol/L (136-145)
[2018-06-11] MEDS: Allopurinol 100 MG TAB PO SCH (09:57)
[2018-06-11] MEDS: Docusate 100 MG CAP PO SCH ×2 (09:57→21:31)
[2018-06-11] MEDS: Ferrous Sulfate 325 MG TAB PO SCH ×2 (09:57→16:57)
[2018-06-11] MEDS: Furosemide 40 MG TAB PO SCH (09:58)
[2018-06-11] MEDS: DULoxetine 30 MG CAP PO SCH (09:58)
[2018-06-11] MEDS: Polyethylene Glycol 3350 17 GM Packet PO SCH ×2 (09:58→21:31)
[2018-06-11] MEDS: Senokot S 8.6-50 MG TAB PO SCH ×2 (09:59→21:31)
[2018-06-11] MEDS: Vit A,C & E/Lutein/Minerals Tablet PO SCH (09:59)
[2018-06-11] MEDS: Zinc Sulfate 220 MG CAP PO SCH (09:59)
[2018-06-11] MEDS: HYDROcodone/Acetaminophen 10/325 mg Tablet PO PRN ×2 (10:00→16:57)
[2018-06-11] MEDS: Lidocaine 4% Topical Sol 50 ML BOT TOP SCH (10:02)
[2018-06-11 13:25] LABS: Hemoglobin 8.7 g/dL (12.0-16.0)
[2018-06-11] MEDS: Melatonin 3 MG TAB PO SCH (21:30)
[2018-06-11] MEDS: Atorvastatin Calcium 10 MG TAB PO SCH (21:31)
[2018-06-11] MEDS: Gabapentin 100 MG CAP PO SCH (21:32)
[2018-06-11] MEDS ORDERED: HYDROcodone/Acetaminophen 5/325 mg Tablet PO SCH (22:30)
[2018-06-12] MEDS: Acetaminophen 500 MG TAB PO PRN ×2 (05:23→09:42)
[2018-06-12] MEDS: traMADol HCl 50 MG TAB PO PRN ×2 (05:23→09:42)
[2018-06-12 07:46] VITALS: TEMP 98.2
[2018-06-12] MEDS: Ferrous Sulfate 325 MG TAB PO SCH (09:18)
[2018-06-12] MEDS: Zinc Sulfate 220 MG CAP PO SCH (09:18)
[2018-06-12] MEDS: Vit A,C & E/Lutein/Minerals Tablet PO SCH (09:19)
[2018-06-12] MEDS: Docusate 100 MG CAP PO SCH (09:19)
[2018-06-12] MEDS: Furosemide 40 MG TAB PO SCH (09:20)
[2018-06-12] MEDS: DULoxetine 30 MG CAP PO SCH (09:20)
[2018-06-12] MEDS: Allopurinol 100 MG TAB PO SCH (09:20)
[2018-06-12] MEDS: Senokot S 8.6-50 MG TAB PO SCH (09:28)
[2018-06-12] MEDS: Lidocaine 4% Topical Sol 50 ML BOT TOP SCH (09:28)
[2018-06-12] MEDS: Polyethylene Glycol 3350 17 GM Packet PO SCH (09:28)
[2018-06-12 11:45] VITALS: BP 147/73
--- NOTE | 2018-06-19 15:13 | PDOC.OP ---
Operative Note - Operative Note Operative Note: PROCEDURE: Incision and drainage of left leg hematoma DATE OF PROCEDURE: 06/06/2018 SURGEON: Robinson Baez M.D. PREOPERATIVE DIAGNOSES: Left leg hematoma with extensive skin loss POSTOPERATIVE DIAGNOSIS: Left leg hematoma with extensive skin loss HISTORY: Patient is an 82-year-old woman whose left leg was pinched by the Irma lift while she was transferring. She is chronically anticoagulated and rapidly developed a large amount of swelling and bruising on her left leg. She was admitted to the hospital and transfused and when I was consult to the clot had actually ruptured through the thin overlying skin and onto her bed. A moderate amount of clot was debrided at the bedside to reduce the pressure on the overlying skin and she was placed on the operating room schedule for operative debridement. Based on the appearance of her leg at the time of consultation the family was prepared for the likelihood that she would lose most of the skin over her lateral and posterior calf. PROCEDURE IN DETAIL: After informed consent was obtained the patient was taken to the operating she is placed in supine position and anesthesia was administered. She was prepped and draped in standard sterile fashion and a large amount of adherent clot evacuated from the left lateral and posterior calf. The underlying skin was nonviable as anticipated and was sharply debrided back until bleeding was encountered. Some of the skin along the anterior and inferior edge of the wound was questionable so this was left in place with plans to debride this further if it became clearly nonviable. The patient had a moderate amount of nonsurgical oozing from the subcutaneous tissues of the calf after the adherent clot was removed, which was controlled with Surgicel and pressure. Once hemostasis was ensured, the wound care team was called to the room to place a negative pressure dressing. The patient tolerated the procedure well. Estimated intraoperative blood loss was minimal, but several 100 mL's of clot was removed from the leg. There were no complications and no specimens.
== END 2018-06-12 14:50 | disposition home health service (06) | DRG 604 ==
LOC: ERS 11:33 → T4-B 17:28 → CCU 06-05 02:02 → OBSVTOIN 06-05 10:22 → SURG B 06-06 10:02
PROVIDERS: ADMIT Internal Medicine; ATTEND Internal Medicine
PROC: 06HN33Z Insertion of Infusion Device into Left Femoral Vein, Percutaneous Approach (ICD-10-PCS; principal; 2018-06-05)
PROC: 30233L1 Transfusion of Nonautologous Fresh Plasma into Peripheral Vein, Percutaneous Approach (ICD-10-PCS; 2018-06-05)
PROC: 30253N1 (ICD-10-PCS; 2018-06-05)
PROC: 0JCN0ZZ Extirpation of Matter from Right Lower Leg Subcutaneous Tissue and Fascia, Open Approach (ICD-10-PCS; 2018-06-06)
PROC: 0HBLXZZ Excision of Left Lower Leg Skin, External Approach (ICD-10-PCS; 2018-06-06)
DX: S80.12XA Contusion of left lower leg, initial encounter (principal); R57.1 Hypovolemic shock; I50.32 Chronic diastolic (congestive) heart failure; D62 Acute posthemorrhagic anemia; N17.9 Acute kidney failure, unspecified; I97.51 Accidental puncture and laceration of a circulatory system organ or structure during a circulatory system procedure; N30.00 Acute cystitis without hematuria; I13.0 Hypertensive heart and chronic kidney disease with heart failure and stage 1 through stage 4 chronic kidney disease, or unspecified chronic kidney disease; I48.91 Unspecified atrial fibrillation; I89.0 Lymphedema, not elsewhere classified; E78.5 Hyperlipidemia, unspecified; N18.9 Chronic kidney disease, unspecified; E87.6 Hypokalemia; I87.2 Venous insufficiency (chronic) (peripheral); E66.9 Obesity, unspecified; Z85.72 Personal history of non-Hodgkin lymphomas; Z86.718 Personal history of other venous thrombosis and embolism; Z86.711 Personal history of pulmonary embolism; Z79.01 Long term (current) use of anticoagulants; Z88.0 Allergy status to penicillin; Z99.3 Dependence on wheelchair; Z68.33 Body mass index [BMI] 33.0-33.9, adult; W24.0XXA Contact with lifting devices, not elsewhere classified, initial encounter; Y65.8 Other specified misadventures during surgical and medical care
CPT/HCPCS: 36415; 36416; 36430; 71045; 80048; 80053; 81001; 82274; 82805; 83735; 85025; 85610; 85730; 86850; 86900; 86901; 87086; 96374; 96375; A4216; A4353; C1751; G0390; G8978-GP-CM; G8979-GP-CL; J0696; J1100; J1940; J2001; J2185; J2270; J2405; J2704; J3010; J3430; J3475; J7050; P9016; P9059

== ENCOUNTER 2018-06-15 13:05 | Inpatient (IN) | payer MEDICARE ==
[2018-06-15 14:14] LABS: #Eosinphils 0.2 thou/uL (0.0-0.7); #Lymphocytes 1.2 thou/uL (1.20-3.40); #Monocytes 0.7 thou/uL (0.11-0.59); #Neutrophils 6.8 thou/uL (1.40-6.50); %Basophils 0.4 % (0.0-1.0); %Eosinophils 2.1 % (0.0-10.0); %Lymphocytes 13.8 % (21.0-51.0); %Monocytes 7.8 % (0.0-10.0); Hemoglobin 8.9 g/dL (12.0-16.0); Mean Corpuscular HGB CONC 33.4 g/dL (32.0-36.0); Mean Corpuscular Hemoglobin 32.9 pg (27.0-31.0); Mean Corpuscular Volume 98.3 fL (78.0-98.0); Mean Platelet Volume 7.4 fL (7.4-10.4); Platelet Count 445 thou/uL (130-400); Red Blood Cell (RBC) Count 2.72 mill/uL (4.20-5.40)
[2018-06-15 14:20] LABS: PTT 25.5 SEC (22.9-36.1); Prothrombin Time 13.5 SEC (12.0-14.7)
[2018-06-15 14:34] LABS: ALT (SGPT) 9 U/L (8-55); AST (SGOT) 18 U/L (5-34); Albumin 3.1 g/dL (3.4-4.8); Alkaline Phosphatase 77 U/L (40-150); Anion Gap 14 mmol/L (10-20); BUN (Urea Nitrogen) 66 mg/dL (9.8-20.1); Bilirubin, Total 0.3 mg/dL (0.2-1.2); CRP (Inflammatory) 2.83 mg/dL (= or < 0.5); Calc. Creatinine Clearance 0 mL/min (70-130); Calcium 9.9 mg/dL (7.8-10.44); Carbon Dioxide 28 mmol/L (23-31); Chloride 100 mmol/L (98-107); Estimated GFR-MDRD 38; Globulin 2.9 g/dL (2.4-3.5); Glucose 103 mg/dL (83-110); Potassium 4.9 mmol/L (3.5-5.1); Sodium 137 mmol/L (136-145)
--- NOTE | 2018-06-15 15:45 | ULT ---
VENOUS DOPPLER ULTRASOUND OF THE RIGHT LOWER EXTREMITY: HISTORY: Right lower extremity pain and edema. TECHNIQUE: Pacheco scale ultrasound with color flow and spectral Doppler imaging of the right common femoral, femor al, deep femoral, popliteal, posterior tibial, and greater saphenous veins. IMPRESSION: No evidence of deep vein thrombosis in the right lower extremity. POS: OFF
[2018-06-15] MEDS ORDERED: Acetaminophen 325 MG TAB ONE (15:50)
[2018-06-15] MEDS ORDERED: traMADol HCl 50 MG TAB ONE (15:54)
[2018-06-15] MEDS ORDERED: Lidocaine 2% PF 5 ML VIAL ONE (18:00)
[2018-06-15] MEDS ORDERED: Lidocaine 1% PF 5 ML VIAL ONE (18:02)
[2018-06-15] MEDS ORDERED: Lidocaine 1% (PF) 30 ML VIAL ONE (18:03)
[2018-06-15] MEDS ORDERED: Ondansetron HCl/PF 4 MG/2 ML Vial IVP PRN ×2 (20:17→21:38)
[2018-06-15] MEDS ORDERED: Sodium Chloride 0.9% 1,000 ML IV SCH (20:17)
[2018-06-15] MEDS ORDERED: Ondansetron ODT 4 MG TAB SL PRN (20:17)
[2018-06-15] MEDS ORDERED: Acetaminophen 325 MG TAB PO PRN (20:17)
[2018-06-15] MEDS ORDERED: Zolpidem Tartrate 5 MG TAB PO PRN (21:38)
[2018-06-15] MEDS ORDERED: Mag-Al 1200 mg/1200 mg/30 ML UDCUP PO PRN (21:38)
[2018-06-15] MEDS ORDERED: Milk Of Magnesia 30 ML UDCUP PO PRN (21:38)
[2018-06-15] MEDS ORDERED: Loperamide HCl 2 MG CAP PO PRN (21:38)
[2018-06-15] MEDS ORDERED: Ondansetron ODT 4 MG TAB PO PRN (21:38)
[2018-06-15] MEDS ORDERED: Senokot 8.6 MG TAB PO PRN (21:38)
[2018-06-15] MEDS ORDERED: Albuterol Sulfate 1.25 MG/3 ML NEB NEB PRN (21:40)
[2018-06-15 21:42] VITALS: BMI 35.0
[2018-06-15] MEDS: HYDROcodone/Acetaminophen 5/325 mg Tablet PO PRN (21:50)
[2018-06-15] MEDS ORDERED: Atorvastatin Calcium 10 MG TAB PO SCH (22:15)
[2018-06-15] MEDS ORDERED: Magnesium Oxide 400 MG TAB PO SCH (22:15)
[2018-06-15] MEDS ORDERED: Estradiol 0.01% Vaginal Cream 42.5 gm Tube VAG SCH (22:15)
[2018-06-15] MEDS ORDERED: Gabapentin 100 MG CAP PO SCH (22:15)
[2018-06-15] MEDS ORDERED: Lactinex Tablet PO SCH (22:15)
[2018-06-15] MEDS ORDERED: Docusate 100 MG CAP PO SCH (22:15)
[2018-06-15] MEDS ORDERED: Melatonin 3 MG TAB PO SCH (22:15)
[2018-06-15] MEDS: traMADol HCl 50 MG TAB PO PRN (22:25)
[2018-06-15] MEDS ORDERED: Ferrous Sulfate 325 MG TAB PO SCH (23:30)
[2018-06-15] MEDS ORDERED: Potassium Chloride 10 MEQ TAB PO SCH (23:30)
--- NOTE | 2018-06-16 00:38 | HP ---
DATE OF ADMISSION: 06/15/2018 PRIMARY CARE PHYSICIAN: Dr. Briggs in [place]. REASON FOR ADMISSION: Right lower extremity cellulitis and left lower extremity wound. HISTORY OF PRESENT ILLNESS: An 82-year-old female who was recently admitted in our hospital on 06/04. During that admission, patient had difficult IV access through right IJ that is why Dr. Margarita Sarah did femoral IV access. Before that admission, patient was on warfarin and she had injury to left lower extremity and wound that was hematoma. During that admission, Dr. Baez was following and patient was treated with a wound VAC. She was given antibiotic therapy with Rocephin for urinary tract infection, which was discontinued later on as culture remained negative. She was not given an y antibiotic therapy upon discharge. Patient was discharged from the hospital on 06/12/2018. Per hortensia martinez, she required blood transfusion during previous admission as well as FFP. She was not on any a nticoagulation therapy upon discharge. Patient came to the emergency room because she was experienci ng swelling in her left leg and she was hurting in the right knee and she was feeling erythematous an d warmth over posterior aspect of right knee. In the emergency room, patient was given vancomycin. She had only 99 fever in the emergency room. Patient was worried about DVT because she was off on bl ood thinner medication. Ultrasound was done in the emergency room, which did not show any DVT. Kim ent was admitted as a full admission to oncology floor. Patient denied any fever or chills. She den ies any trauma. She is getting wound care with wound VAC. Her daughter was present and I spoke with her and she reported to me that patient had knee aspiration done at [facility] by Dr. Jose Maria, orthopedic physician and patient was sup posed to take rifampin, but that medication has never been started. Per daughter during previous adm ission, synovial fluid analysis report was faxed over from [facility], but that r eport I could not retrieve. Patient denies any UTI symptoms. She denies any constipation, diarrhea, melena, or hematochezia. 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 PAST SURGICAL HISTORY: Cholecystectomy, right knee surgery, cataract surgery. PAST PSYCHIATRIC HISTORY: Anxiety and depression. SOCIAL HISTORY: Patient lives at home with her daughter. No history of tobacco, alcohol, or illicit drug abuse. FAMILY HISTORY: Positive for PE and DVT among several family members. REVIEW OF SYSTEMS: Please see my HPI for pertinent positive and negative. All other review of syste ms reviewed and negative except as mentioned in the HPI: Constitutional: Weight loss or gain, abili ty to conduct usual activities. Skin: Rash, itching. Eyes: Double vision, pain. ENT/Mouth: Nose bleeding, neck stiffness, pain, tenderness. Cardiovascular: Palpitations, dyspnea on exertion, ort hopnea. Respiratory: Shortness of breath, wheezing, cough, hemoptysis, fever, or night sweats. Gas trointestinal: Poor appetite, abdominal pain, heartburn, nausea, vomiting, constipation, or diarrhea . Genitourinary: Urgency, frequency, dysuria, nocturia. Musculoskeletal: Pain, swelling. Neurolo gic/Psychiatric: Anxiety, depression. Allergy/Immunologic: Skin rash, bleeding tendency. ALLERGIES: PENICILLIN, MACROBID, SULFA. CURRENT HOME MEDICATIONS: Estrace vaginal cream every other day, Tylenol 1 gram q.6 hourly p.r.n., t ramadol 50 mg q.6 hourly p.r.n., albuterol sulfate nebulization q.8 hourly p.r.n., allopurinol 100 m g daily, vitamin C 1000 mg p.o. daily, vitamin B12 of 1000 mcg sublingual daily, Cymbalta 60 mg daily , Flonase nasal spray daily, Lasix 20 mg in the morning and 40 mg in the evening, Lawrence 1 tablet q.6 hourly p.r.n., Floranex one tablet t.i.d., magnesium oxide 400 mg p.o. b.i.d., melatonin 20 mg p.o. a t bedtime, methyldopa 250 mg p.o. b.i.d., Benicar 40 mg p.o. daily, Protonix 40 mg p.o. daily, pravas tatin 40 mg p.o. at bedtime, Colace 100 mg p.o. b.i.d., ferrous sulfate 325 mg p.o. b.i.d., gabapenti n 100 mg p.o. b.i.d., Imdur 30 mg p.o. daily, potassium chloride 10 mEq p.o. b.i.d. EMERGENCY ROOM COURSE: Patient is given vancomycin, tramadol 50 mg, and Tylenol 650 mg. PHYSICAL EXAMINATION: VITAL SIGNS: On arrival blood pressure 168/79, pulse 84, respiratory rate 20, temperature 99.0, satu ration 97% on room air, weight 90.7 kilograms. GENERAL: Patient is currently alert, awake, in no obvious acute distress, hypertensive. HEENT: Normocephalic, atraumatic. Eyes: Pupils round, reactive to light. Extraocular muscle intac t. ENT: Oropharynx within normal limits. Moist mucous membranes, no oral lesion. No pharyngeal erythe ma, no exudate. NECK: Patient does have mild ecchymosis on the right side of the neck. No cervical lymphadenopathy, no JVD. Supple. No meningeal signs of irritation. LUNGS: Clear to auscultation without any rhonchi or rales. CARDIAC: S1, S2 regular without any significant murmur. ABDOMEN: Soft, bowel sounds present, nontender, nondistended. No organomegaly, no mass, no suprapub ic tenderness. BACK: Unremarkable. No CVA tenderness. EXTREMITIES: Upper extremity passive movement of all joints are normal. Right lower extremity, surg ical scar noted. There was a little bit of erythema, warmth, and tenderness over medial aspect of ri ght knee. Left lower extremity has compression wrap with a wound VAC applied. NEUROLOGIC: Nonfocal examination. Speech normal. SKIN: No skin rash other than mild cellulitis of right lower extremity. SIGNIFICANT LABORATORY DATA: CBC: WBC 9.0, hemoglobin 8.9, platelet 445, MCV 98.3. INR 1.0. BMP: Sodium 137, potassium 4.9, chloride 100, carbon dioxide 28, anion gap 14, BUN 66, creatinine 1.33, g lucose 103, calcium 9.9. LFT: AST 18, ALT 9, alkaline phosphatase 77, albumin 3.1. CRP 2.83. ASSESSMENT AND PLAN: 1. Right lower extremity cellulitis. Patient had ultrasound done in emergency room, which is negati ve for deep vein thrombosis. Patient has clinical evidence of mild erythema, tenderness, and warmth over posterior aspect of right knee. Per patient and family member, patient had knee aspiration done by her Orthopedic physician at [facility]. We have to get medical record from Orthopedics office about syn ovial fluid analysis and culture report and based on that result, we will decide further antibiotic t herapy. Current cellulitis is significantly improved with vancomycin, which we will continue while i n hospital. We will consult Dr. Cai for his opinion. Patient has multiple drug allergies, but on discharge, we can consider changing to Cipro and doxy. Her pain will be controlled with pain medicat ion. 2. Left lower extremity wound with a wound VAC in place. Wound care team will be consulted. Dr. Carlee marcus will be consulted again to look at the wound. Her pain will be controlled with pain medication . 3. Hypertension. We will continue patient's home medication, Benicar 40 mg p.o. daily, methyldopa 2 50 mg p.o. b.i.d., Lasix 20 mg daily and 40 mg in the evening time. Imdur 30 mg p.o. daily. 4. Gastroesophageal reflux disease. We will continue Protonix 40 mg p.o. daily. 5. Chronic diastolic heart failure. Continue Lasix as per home dosage along with other antihyperten sive medication. 6. Anxiety and depression. Continue Cymbalta 60 mg daily. 7. Chronic kidney disease, stage 3. We will monitor renal function and avoid nephrotoxin agent. 8. Macrocytic anemia. Continue ferrous sulfate, vitamin B12 therapy as per home dosage. 9. Hyperuricemia and gout. Continue allopurinol 100 mg p.o. daily. 10. Obesity with BMI 35. Dietary education given, weight loss education given. 11. Deep venous thrombosis prophylaxis. We will start Lovenox 40 mg subcutaneous daily. The patien t will start her chronic anticoagulation therapy upon followup visit with primary care physician. 12. Gastrointestinal prophylaxis, Protonix 40 mg p.o. daily. CODE STATUS: Patient is FULL CODE. Patient's daughter is surrogate decision maker. Disposition plan based on clinical course. We are expecting patient's stay in hospital more than 2 m idnights. During this admission, we will get opinion from Dr. Cai. We will try to thrive, synovia l fluid report from the Medical Center or from previous hospitalization. We will monitor clinical re sponse and control pain.
[2018-06-16] MEDS: HYDROcodone/Acetaminophen 5/325 mg Tablet PO PRN ×3 (02:01→19:32)
[2018-06-16 05:25] LABS: ALT (SGPT) 7 U/L (8-55); AST (SGOT) 11 U/L (5-34); Alkaline Phosphatase 80 U/L (40-150); Anion Gap 12 mmol/L (10-20); BUN (Urea Nitrogen) 70 mg/dL (9.8-20.1); Bilirubin, Total 0.4 mg/dL (0.2-1.2); Calc. Creatinine Clearance 46 mL/min (70-130); Calcium 9.8 mg/dL (7.8-10.44); Carbon Dioxide 34 mmol/L (23-31); Chloride 98 mmol/L (98-107); Estimated GFR-MDRD 37; Globulin 2.5 g/dL (2.4-3.5); Glucose 103 mg/dL (83-110); Potassium 4.5 mmol/L (3.5-5.1); Protein, Total 5.5 g/dL (6.0-8.3); Sodium 139 mmol/L (136-145)
[2018-06-16 05:56] LABS: #Eosinphils 0.2 thou/uL (0.0-0.7); #Lymphocytes 1.3 thou/uL (1.20-3.40); #Monocytes 0.6 thou/uL (0.11-0.59); #Neutrophils 4.9 thou/uL (1.40-6.50); %Basophils 0.3 % (0.0-1.0); %Eosinophils 3.2 % (0.0-10.0); %Lymphocytes 18.8 % (21.0-51.0); %Monocytes 8.3 % (0.0-10.0); %Neutrophils 69.3 % (42.0-75.0); Hemoglobin 8.7 g/dL (12.0-16.0); Mean Corpuscular HGB CONC 32.9 g/dL (32.0-36.0); Mean Corpuscular Hemoglobin 32.3 pg (27.0-31.0); Mean Platelet Volume 7.1 fL (7.4-10.4); Platelet Count 413 thou/uL (130-400); RBC Distribution Width 14.8 % (11.5-14.5); Red Blood Cell (RBC) Count 2.69 mill/uL (4.20-5.40); White Blood Cell (WBC) Count 7.1 thou/uL (4.8-10.8)
[2018-06-16] MEDS: Magnesium Oxide 400 MG TAB PO SCH ×2 (08:53→20:32)
[2018-06-16] MEDS: Lactinex Tablet PO SCH ×3 (08:54→20:33)
[2018-06-16] MEDS: DULoxetine 60 MG CAP PO SCH (08:54)
[2018-06-16] MEDS: Ascorbic Acid 500 mg Chewable Tablet PO SCH (08:55)
[2018-06-16] MEDS: Allopurinol 100 MG TAB PO SCH (08:55)
[2018-06-16] MEDS: Furosemide 40 MG TAB PO SCH (08:55)
[2018-06-16] MEDS: Ferrous Sulfate 325 MG TAB PO SCH ×2 (08:56→17:01)
[2018-06-16] MEDS: Cyanocobalamin (Vitamin B-12) 1,000 MCG TAB PO SCH (08:57)
[2018-06-16] MEDS: Potassium Chloride 10 MEQ TAB PO SCH ×2 (08:57→17:02)
[2018-06-16] MEDS: Docusate 100 MG CAP PO SCH ×2 (08:58→20:34)
[2018-06-16] MEDS ORDERED: Vit A,C & E/Lutein/Minerals Tablet PO SCH (09:00)
[2018-06-16] MEDS ORDERED: Gabapentin 100 MG CAP PO SCH ×2 (09:00→21:00)
[2018-06-16] MEDS ORDERED: Famotidine 20 MG TAB PO SCH (09:00)
[2018-06-16] MEDS ORDERED: Multivitamin W/ Minerals 1 TAB PO SCH (09:00)
[2018-06-16] MEDS ORDERED: Enoxaparin Sodium 40 MG/0.4 ML SYRINGE SC SCH (09:00)
[2018-06-16] MEDS: Fluticasone Propionate Nasal Spray 16 gm Bottle NASAL SCH (09:01)
[2018-06-16] MEDS: Gabapentin 100 MG CAP PO SCH (09:03)
[2018-06-16] MEDS: Acetaminophen 325 MG TAB PO PRN (09:18)
[2018-06-16] MEDS: traMADol HCl 50 MG TAB PO PRN (09:18)
--- NOTE | 2018-06-16 13:09 | PDOC.PN ---
- Subjective Encounter Start Date: 06/16/18 Encounter Start Time: 13:08 Subjective: discussed w daughter at bedside.reports that L leg swelling/redness better -: concerened about Lovenox and possibility of hematoma -: pt c/o back spasms - Objective Resuscitation Status: Resuscitation Status FULL:Full Resuscitation MAR Reviewed: Yes Vital Signs & Weight: Vital Signs (12 hours) Temp Pulse Resp BP BP Pulse Ox 06/16/18 08:53 141/83 H 06/16/18 08:00 97.7 F 77 16 97 06/16/18 06:55 97.7 F 77 16 133/61 97 06/16/18 04:20 98.0 F 67 20 117/56 L 97 Weight Admit Weight 204 lb Weight 204 lb I&O: 06/15/18 06/16/18 06/17/18 06:59 06:59 06:59 Intake Total 610 270 Balance 610 270 Result Diagrams: 06/16/18 05:40 06/16/18 04:48 Additional Labs: Microbiology 06/07/18 22:15 Urine reardon catheter Urine Culture - Final 06/04/18 14:00 Stool - Pending Stool Occult Blood (FELIPE) - Final Phys Exam - Physical Examination Constitutional: NAD frail.tearful HEENT: PERRLA, moist MMs, sclera anicteric, oral pharynx no lesions Neck: no nodes, no JVD, supple, full ROM Respiratory: no wheezing, no rales, no rhonchi, clear to auscultation bilateral Cardiovascular: RRR, no significant murmur Gastrointestinal: soft, non-tender, no distention, positive bowel sounds Musculoskeletal: pulses present LLE dressing.RLE redness w some swelling.R knee warm+swelling.no erythe Neurological: non-focal, normal sensation, moves all 4 limbs Psychiatric: normal affect, A&O x 3 Skin: no rash Dx/Plan (1) Left leg cellulitis Code(s): L03.116 - CELLULITIS OF LEFT LOWER LIMB Status: Acute (2) H/O Right Leg hematoma Status: Acute (3) Chronic acquired lymphedema Code(s): I89.0 - LYMPHEDEMA, NOT ELSEWHERE CLASSIFIED Status: Chronic (4) Dyslipidemia Code(s): E78.5 - HYPERLIPIDEMIA, UNSPECIFIED Status: Chronic (5) History of deep venous thrombosis or pulmonary embolus Code(s): GDZ0558 - Status: Chronic Comment: Coumadin stopped last admission (6) Hypertension Code(s): I10 - ESSENTIAL (PRIMARY) HYPERTENSION Status: Chronic Qualifiers: Hypertension type: essential hypertension Qualified Code(s): I10 - Essential (primary) hypertension (7) FAUSTINO (obstructive sleep apnea) Code(s): G47.33 - OBSTRUCTIVE SLEEP APNEA (ADULT) (PEDIATRIC) Status: Chronic (8) Physical deconditioning Code(s): R53.81 - OTHER MALAISE Status: Chronic - Plan plan discussed w/ family, continue antibiotics, PT/OT, out of bed/ambulate, DVT proph w/SCDs Discussed care i detail w daughter who had multiple concerns -: she is refusing prophylactic lovenox & is made aware the extremly high risk -: of DVt in this pt who is immobile with H/O same +FH of clots -: she would like to discuss w Dr Baez about restarting coumadin -: NO DC SUMMARY AVAILABLE TO REVIEW.Do not know if coumadin can be restarted * .H/H lower side but stable. no overt b;leed or hemato,ma * L leg wound care ongoing * cont vanco for R leg cellulitis. ID recs requested * Very high risk of decompensation given compliacted hopsital stay earlier this month & co morbidities * am labs * Check R Knee Xray to r/o effusion. * Labs reviewed from [facility]. Knee aspirate had Staph Epidermidis ? True Vs contamination Review of Systems - Review of Systems Constitutional: weakness, malaise. negative: fever, chills, sweats, other ENT: negative: Ear Pain, Ear Discharge, Nose Pain, Nose Discharge, Nose Congestion, Mouth Pain, Mouth Swelling, Throat Pain, Throat Swelling, Other Respiratory: negative: Cough, Dry, Shortness of Breath, Hemoptysis, SOB with Excertion, Pleuritic Pain, Sputum, Wheezing Cardiovascular: negative: chest pain, palpitations, orthopnea, paroxysmal nocturnal dyspnea, edema, light headedness, other Gastrointestinal: negative: Nausea, Vomiting, Abdominal Pain, Diarrhea, Constipation, Melena, Hematochezia, Other Genitourinary: negative: Dysuria, Frequency, Incontinence, Hematuria, Retention , Other Musculoskeletal: Leg Pain, Other. negative: Neck Pain, Shoulder Pain, Arm Pain , Back Pain, Hand Pain, Foot Pain Skin: negative: Rash, Lesions, Ananth, Bruising, Other Neurological: negative: Weakness, Numbness, Incoordination, Change in Speech, Confusion, Seizures, Other - Medications/Allergies Allergies/Adverse Reactions: Allergies Allergy/AdvReac Type Severity Reaction Status Date / Time Penicillins Allergy Unknown Verified 06/04/18 18:32 nitrofurantoin Allergy Verified 06/04/18 18:33 [From Macrobid] sulfamethoxazole Allergy Verified 06/04/18 18:33 [From Bactrim] trimethoprim [From Bactrim] Allergy Verified 06/15/18 21:18 Medications: Current Medications Acetaminophen (Tylenol) 650 mg PO Q4H PRN PRN Reason: Headache/Fever or Pain Last Admin: 06/16/18 09:18 Dose: 650 mg Hydrocodone Bitart/Acetaminophen (Bogard 5/325) 1 tab PO Q4H PRN PRN Reason: Moderate Pain (4-6) Last Admin: 06/16/18 02:01 Dose: 1 tab Hydrocodone Bitart/Acetaminophen (Bogard 5/325) 2 tab PO Q4H PRN PRN Reason: Severe Pain (7-10) Acidophilus (Floranex) 1 tab PO TID [facility] Last Admin: 06/16/18 08:54 Dose: 1 tab Al Hydroxide/Mg Hydroxide (Maalox) 30 ml PO Q6H PRN PRN Reason: Heartburn or Indigestion Albuterol Sulfate (Albuterol Sulfate) 1.25 mg NEB Q8H PRN PRN Reason: SOB &/or Wheezing Allopurinol (Zyloprim) 100 mg PO DAILY [facility] Last Admin: 06/16/18 08:55 Dose: 100 mg Ascorbic Acid (Vitamin C) 1,000 mg PO DAILY [facility] Last Admin: 06/16/18 08:55 Dose: 1,000 mg Cyanocobalamin (Vitamin B-12) 1,000 mcg PO DAILY [facility] Last Admin: 06/16/18 08:57 Dose: 1,000 mcg Docusate Sodium (Colace) 100 mg PO BID [facility] Last Admin: 06/16/18 08:58 Dose: 100 mg Duloxetine HCl (Cymbalta) 60 mg PO DAILY [facility] Last Admin: 06/16/18 08:54 Dose: 60 mg Enoxaparin Sodium (Lovenox) 40 mg SC 0900 [facility] Last Admin: 06/16/18 09:01 Dose: Not Given Estradiol (Estrace 0.01% Vaginal Cream) 0 gm VAG Q2D [facility] Ferrous Sulfate (Feosol) 325 mg PO BID-[facility] Last Admin: 06/16/18 08:56 Dose: 325 mg Fluticasone Propionate (Flonase Nasal [place]) 0 gm NASAL DAILY [facility] Last Admin: 06/16/18 09:01 Dose: 1 spray Furosemide (Lasix) 20 mg PO 1400 [facility] Furosemide (Lasix) 40 mg PO 0900 [facility] Last Admin: 06/16/18 08:55 Dose: 40 mg Gabapentin (Neurontin) 200 mg PO HS [facility] Gabapentin (Neurontin) 100 mg PO QAM [facility] Last Admin: 06/16/18 09:03 Dose: 100 mg Vancomycin HCl 1.5 gm/ Sodium (Chloride) 300 mls @ 200 mls/hr IVPB Q24HR@1500 [facility] Iron/Minerals/Multivitamins (Theragran M) 1 tab PO DAILY [facility] Last Admin: 06/16/18 08:54 Dose: Not Given Isosorbide Mononitrate (Imdur Er) 30 mg PO DAILY [facility] Last Admin: 06/16/18 08:56 Dose: 30 mg Loperamide HCl (Imodium) 2 mg PO PRN PRN PRN Reason: Diarrhea/Loose Stools Magnesium Hydroxide (Milk Of Magnesium) 30 ml PO DAILYPRN PRN PRN Reason: Constipation Magnesium Oxide (Magnesium Oxide) 400 mg PO BID [facility] Last Admin: 06/16/18 08:53 Dose: 400 mg Melatonin (Melatonin) 9 mg PO [facility] Methyldopa (Aldomet) 250 mg PO BID [facility] Last Admin: 06/16/18 08:53 Dose: 250 mg Miscellaneous Medication (Pharmacy To Dose) 0 each IVPB PRN PRN PRN Reason: VANC Pharmacy to Dose Multivitamins/Minerals (Ocuvite With Lutein) 1 tab PO DAILY [facility] Last Admin: 06/16/18 08:55 Dose: 1 tab Olmesartan (Benicar) 20 mg PO DAILY [facility] Last Admin: 06/16/18 08:54 Dose: 20 mg Ondansetron HCl (Zofran Odt) 4 mg PO Q6H PRN PRN Reason: Nausea/Vomiting Ondansetron HCl (Zofran) 4 mg IVP Q6H PRN PRN Reason: Nausea/Vomiting Pantoprazole Sodium (Protonix) 40 mg PO DAILY [facility] Last Admin: 06/16/18 08:54 Dose: 40 mg Potassium Chloride (Klor-Con 10) 10 meq PO BID-[facility] Last Admin: 06/16/18 08:57 Dose: 10 meq Senna (Senokot) 2 tab PO HSPRN PRN PRN Reason: Constipation Sodium Chloride (Flush - Normal Saline) 10 ml IVF PRN PRN PRN Reason: Saline Flush Tramadol HCl (Ultram) 50 mg PO Q6H PRN PRN Reason: Breakthrough Pain Last Admin: 06/16/18 09:18 Dose: 50 mg Zolpidem Tartrate (Ambien) 5 mg PO HSPRN PRN PRN Reason: Insomnia
--- NOTE | 2018-06-16 14:03 | CON ---
DATE OF CONSULTATION: 06/16/2018 REASON FOR CONSULTATION: Right knee arthroplasty infection. HISTORY OF PRESENT ILLNESS: An 82-year-old patient who has a history of non- Hodgkin's lymphoma in remission for many years now after treatment and prior episodes of DVT which have been managed with chronic warfarin lymphedema of lower extremities, severe degenerative arthritis in hips and knees with prior right knee replacement in 2014, who recently was admitted after an injury to the left leg and development of hematoma which required surgical debridement. This was carried out by Dr. Baez. She was discharged, I believe 3 days before this latest admission. As noted above the patient has a right knee replacement in 2014, which was complicated by rupture of the patellar tendon. She had to have more surgery with placement of prosthetic material to affix the patella and subsequently this was removed in 2014. For the past few months the patient has noticed pain in the right knee intermittently, the patient has chronic limitation of range of motion pretty much to the 90 degree position in the right knee and so she can use it for standing up, but is not ambulatory any longer. Over the past months, the patient has noticed also intermittent episodes where the knee becomes red and more tender. In April, she was seen to the emergency room and was given oral antimicrobial therapy which were discontinued. She was referred to Dr. Maria. He did an arthrocentesis on 2017 and he obtained according to the daughter about 0.5 mL of light yellow fluid. Cultures have yielded coagulase-negative Staphylococcus. The patient had been prescribed rifampin, but the patient did not fill the prescription. She was readmitted yesterday because of concern with this redness and an area of bulging in the medial aspect of the right calf region. The daughter's concern was mostly centered around the possibility of hematoma on the right side as well. Since admission, the patient has noticed improvement in the amount of redness. She has been started on intravenous antimicrobial therapy with vancomycin. Currently, she is sitting by the bedside. She is awake, does not appear in distress. Denies headaches, no visual symptoms, sore throat, odynophagia, dysphagia, no dyspnea, a little bit of cough, no chest pain, no abdominal pain or diarrhea. Voiding without difficulty. Still with moderate pain in the right knee, mostly on palpation. Most of the pain is at the site of the surgical procedure in the left leg following the hematoma development. 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 PAST SURGICAL HISTORY: Also includes cholecystectomy, cataract surgery. SOCIAL HISTORY: Lives in the area, never a smoker. FAMILY HISTORY: Includes hypercoagulability syndrome with PE and DVTs. ALLERGIES: PENICILLIN, MACROBID and SULFA DRUGS. MEDICATIONS: In addition to vancomycin she is on hydrocodone, Maalox, albuterol , Zyloprim, vitamin C, Colace, Cymbalta, Estrace, Feosol, Flonase, Lasix, Neurontin, Imdur, Imodium, melatonin, Aldomet, Benicar, Zofran, Senokot. PHYSICAL EXAMINATION: VITAL SIGNS: T-max 99, currently 97.7, blood pressure 140/80, pulse 77, respirations 16, O2 sat 97%. SKIN: Shows the wide area of debridement following the development of a hematoma. This measures about 25 cm in length by 7.5 cm in width. The base has some areas of cauterization, darkening of the fat tissue and the remainder areas are red, a little bit of undermining. No significant erythema in the surrounding kin area. She also has the region of redness in the medial aspect of the right leg which now appears to have resolved. In the groin region there is an elliptical ulcerated region. No lymphadenopathy. Some element of alopecia. HEENT: Ocular movements conjugate. Sclerae white. Pupils are equal. Oral cavity with no creek teeth left. Oral mucosa is normal. NECK: Supple, no jugular vein distention. LUNGS: Symmetric air entry. CARDIOVASCULAR: Irregular rate, soft aortic murmur. ABDOMEN: Soft, not distended or tender. No ascites. No bladder distention. EXTREMITIES: The right knee pretty much fixed in 90 degree position quite a bit of tenderness on palpation of the right knee. The previously noted erythema and bulging in the medial aspect of the right leg has subsided. Pulses are 1+ in dorsalis pedis. She has 2+ edema with lymphedema in lower extremities, quite symmetric. She is able to move extremities with limitations imposed by the left leg hematoma and surgery and the right leg and knee problems. NEUROLOGIC: She is awake, oriented, follows commands. Cognitive function appears to be intact. Recollection is a little bit limited. LABORATORY DATA: White cell count is 9000, now 7.1, hemoglobin 8.9, platelets 445 with 76% neutrophils. INR 1.0. Sodium 137, creatinine 1.33 with a normal liver profile. CRP 2.83, albumin 3.1. The cultures from [facility] from 05/29/2018 revealed coagulase negative Staph, which she has a methicillin- resistant phenotype. ASSESSMENT: Non-Hodgkin's lymphoma in remission. Hypercoagulability with previous PE and DVT, on chronic warfarin. 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 Osteomyelitis is a possibility in addition to the joint infection. The standard approach in this situation is either to remove the implant or to wash out the joint and replace the plastic liner. In her case, it would have to be removed, this does not seem to be an option or at least the daughter has discarded that option because of the risk of the procedure. Dr. Maria had offered a long-term antimicrobial therapy and she seems to be inclined to opt for that. For the time being, we will continue vancomycin for 4-6 weeks. PICC line placement. After that transition likely to a chronic indefinite tetracycline, but will have to verify that tetracycline was active against the isolate by reviewing the [facility] microbiology results again. ANA
[2018-06-16] MEDS: Furosemide 20 MG TAB PO SCH ×3 (14:17→17:02)
--- NOTE | 2018-06-16 15:02 | RAD ---
4 VIEWS RIGHT KNEE: Date: 06/16/18 INDICATION: Pain and swelling within the right knee. FINDINGS: There is lucency surrounding the tibial prosthetic component, particularly underlying the base plate, but also surrounding the cement bone interface of the proximal aspect of the tibial prosthetic stem. There is some polymethylmethacrylate seen within the medial gutter of the knee, as well as on the la teral aspect of the right knee joint near the tibial plateau. No definite joint capsular distention i s evident. IMPRESSION: Some mild lucency surrounding the proximal aspect of the tibial prosthesis of the right lower extremi ty suspicious for changes of loosening. Recommend correlation with any prior radiographic comparison to the right knee. POS: MAVERICK
[2018-06-16] MEDS: Vancomycin HCl 1.5 GM in Sodium Chloride 0.9% 250 ML 300 ML IVPB SCH (15:03)
[2018-06-16] MEDS ORDERED: Warfarin Sodium 3 MG TAB PO SCH (17:00)
[2018-06-16] MEDS ORDERED: Pravastatin Sodium 40 MG TAB PO SCH (21:00)
[2018-06-16] MEDS ORDERED: Estradiol 0.01% Vaginal Cream 42.5 gm Tube VAG SCH (21:00)
[2018-06-16] MEDS ORDERED: Melatonin 3 MG TAB PO SCH ×2 (21:00)
[2018-06-16] MEDS ORDERED: Atorvastatin Calcium 10 MG TAB PO SCH (21:00)
--- NOTE | 2018-06-16 22:00 | PDOC.GSPN ---
Surgery Progress Note: Subj - Subjective Narrative: VAC changed yesterday- looks stable on wound photo. New groin wound dressed. Duplex negative for DVT. Dr Cai plans jail suppression for right knee infection. No surgical intervention planned, ok to restart coumadn from my standpoint. Will see w WCT tomorrow for VAC change. Surgery Progress Note: Obj - Vital signs Vital signs: Vital Signs - Most Recent Temp Pulse Resp BP Pulse Ox 98.1 F 82 16 140/64 98 06/16/18 20:00 06/16/18 20:00 06/16/18 20:00 06/16/18 20:32 06/16/18 20:00 Surgery Progress Note: Results - Labs Result Diagrams: 06/16/18 05:40 06/16/18 04:48
[2018-06-17] MEDS: Acetaminophen 325 MG TAB PO PRN (04:26)
[2018-06-17] MEDS: traMADol HCl 50 MG TAB PO PRN (04:26)
[2018-06-17 07:06] VITALS: BP 169/71; TEMP 98.4
[2018-06-17 07:07] LABS: PTT 32.2 SEC (22.9-36.1); Prothrombin Time 13.1 SEC (12.0-14.7)
[2018-06-17 07:12] LABS: Anion Gap 9 mmol/L (10-20); BUN (Urea Nitrogen) 73 mg/dL (9.8-20.1); Calc. Creatinine Clearance 53 mL/min (70-130); Calcium 9.9 mg/dL (7.8-10.44); Carbon Dioxide 33 mmol/L (23-31); Chloride 100 mmol/L (98-107); Estimated GFR-MDRD 43; Glucose 105 mg/dL (83-110); Potassium 4.2 mmol/L (3.5-5.1); Sodium 138 mmol/L (136-145)
[2018-06-17 07:13] LABS: #Eosinphils 0.2 thou/uL (0.0-0.7); #Lymphocytes 1.2 thou/uL (1.20-3.40); #Monocytes 0.5 thou/uL (0.11-0.59); #Neutrophils 5.4 thou/uL (1.40-6.50); %Basophils 0.1 % (0.0-1.0); %Eosinophils 3.3 % (0.0-10.0); %Lymphocytes 16.7 % (21.0-51.0); %Neutrophils 72.9 % (42.0-75.0); Hemoglobin 8.7 g/dL (12.0-16.0); Mean Corpuscular Hemoglobin 32.5 pg (27.0-31.0); Mean Corpuscular Volume 98.4 fL (78.0-98.0); Mean Platelet Volume 7.7 fL (7.4-10.4); Platelet Count 401 thou/uL (130-400); Red Blood Cell (RBC) Count 2.69 mill/uL (4.20-5.40); White Blood Cell (WBC) Count 7.4 thou/uL (4.8-10.8)
[2018-06-17] MEDS: HYDROcodone/Acetaminophen 5/325 mg Tablet PO PRN ×3 (07:49→18:16)
[2018-06-17] MEDS ORDERED: Non-Formulary Item 1 EACH (Multivitamin [Multi-Vitamin Daily] 1 TABLET) PO SCH (09:00)
[2018-06-17] MEDS ORDERED: Non-Formulary Item 1 EACH (Vit C/Vit E/Lutein/Min/Omega-3 [Ocuvite Softgel] 1 CAP) PO SCH (09:00)
[2018-06-17] MEDS ORDERED: Zinc Sulfate 220 MG CAP PO SCH (09:00)
[2018-06-17] MEDS ORDERED: Vit A,C & E/Lutein/Minerals Tablet PO SCH (09:00)
[2018-06-17] MEDS: DULoxetine 60 MG CAP PO SCH (09:35)
[2018-06-17] MEDS: Ferrous Sulfate 325 MG TAB PO SCH ×2 (09:35→16:57)
[2018-06-17] MEDS: Ascorbic Acid 500 mg Chewable Tablet PO SCH (09:36)
[2018-06-17] MEDS: Lactinex Tablet PO SCH ×2 (09:36→16:57)
[2018-06-17] MEDS: Allopurinol 100 MG TAB PO SCH (09:36)
[2018-06-17] MEDS: Multivit, Therapeutic 1 TAB PO SCH ×2 (09:36→09:42)
[2018-06-17] MEDS: Gabapentin 100 MG CAP PO SCH (09:37)
[2018-06-17] MEDS: Docusate 100 MG CAP PO SCH (09:37)
[2018-06-17] MEDS: Magnesium Oxide 400 MG TAB PO SCH (09:38)
[2018-06-17] MEDS: Fluticasone Propionate Nasal Spray 16 gm Bottle NASAL SCH (09:38)
[2018-06-17] MEDS: Furosemide 40 MG TAB PO SCH (09:38)
[2018-06-17] MEDS: Cyanocobalamin (Vitamin B-12) 1,000 MCG TAB PO SCH (09:38)
[2018-06-17] MEDS: Potassium Chloride 10 MEQ TAB PO SCH ×2 (09:38→16:57)
--- NOTE | 2018-06-17 09:42 | SPC ---
ULTRASOUND FLUOROSCOPICALLY GUIDED PICC LINE: History: Need for long-term IV antibiotics. Comparison: None. TECHNIQUE/FINDINGS: The patient was brought to the Specials [facility]. All questions were answered. The patient's right arm was prepped and draped in normal sterile fashion. Using ultrasound guidance, the right basilic vein was accessed. Using fluoroscopic guidance, the PICC was placed over a wire and peel-away sheath, a 38 cm single lumen PICC was placed. Patient tolerated the procedure well without complications. IMPRESSION: Technically successful ultrasound and fluoroscopically guided PICC line placement. Fluoro time: 0.4 minutes. POS: MAVERICK
--- NOTE | 2018-06-17 10:58 | PDOC.PN ---
- Subjective Encounter Start Date: 06/17/18 Encounter Start Time: 07:00 -: old records requested/rev Patient seen and examined. No new complaints. No overnight events - Objective Resuscitation Status: Resuscitation Status FULL:Full Resuscitation MAR Reviewed: Yes Vital Signs & Weight: Vital Signs (12 hours) Temp Pulse Resp BP BP Pulse Ox 06/17/18 09:38 169/71 H 06/17/18 07:02 98.4 F 77 16 169/71 H 97 06/17/18 04:00 97.5 F L 67 16 122/57 L 95 06/16/18 23:42 97.8 F 80 20 104/51 L 90 L Weight Admit Weight 204 lb Weight 204 lb I&O: 06/16/18 06/17/18 06/18/18 06:59 06:59 06:59 Intake Total 610 1890 Balance 610 1890 Result Diagrams: 06/17/18 06:23 06/17/18 06:23 Phys Exam - Physical Examination Constitutional: NAD HEENT: PERRLA, moist MMs, sclera anicteric Neck: no JVD, supple Respiratory: no wheezing, no rales, no rhonchi Cardiovascular: RRR, no significant murmur, no rub Gastrointestinal: soft, non-tender, no distention, positive bowel sounds Musculoskeletal: no edema, pulses present left leg wound with wound vac Neurological: non-focal, normal sensation, moves all 4 limbs Psychiatric: normal affect, A&O x 3 Skin: no rash, normal turgor Dx/Plan (1) Acute kidney injury Code(s): N17.9 - ACUTE KIDNEY FAILURE, UNSPECIFIED Status: Acute (2) Cellulitis of right leg Code(s): L03.115 - CELLULITIS OF RIGHT LOWER LIMB Status: Acute (3) Infection of right knee Code(s): M00.9 - PYOGENIC ARTHRITIS, UNSPECIFIED Status: Acute (4) Anemia, macrocytic Code(s): D53.9 - NUTRITIONAL ANEMIA, UNSPECIFIED Status: Chronic (5) Anxiety and depression Code(s): F41.9 - ANXIETY DISORDER, UNSPECIFIED; F32.9 - MAJOR DEPRESSIVE DISORDER, SINGLE EPISODE, UNSPECIFIED Status: Chronic (6) Chronic acquired lymphedema Code(s): I89.0 - LYMPHEDEMA, NOT ELSEWHERE CLASSIFIED Status: Chronic (7) Dyslipidemia Code(s): E78.5 - HYPERLIPIDEMIA, UNSPECIFIED Status: Chronic (8) History of arthroplasty of right knee Code(s): Z96.651 - PRESENCE OF RIGHT ARTIFICIAL KNEE JOINT Status: Chronic (9) History of deep venous thrombosis or pulmonary embolus Code(s): IAT2691 - Status: Chronic Comment: Coumadin stopped last admission (10) Hypertension Code(s): I10 - ESSENTIAL (PRIMARY) HYPERTENSION Status: Chronic Qualifiers: Hypertension type: essential hypertension Qualified Code(s): I10 - Essential (primary) hypertension (11) Leg wound, left Code(s): S81.802A - UNSPECIFIED OPEN WOUND, LEFT LOWER LEG, INITIAL ENCOUNTER Status: Chronic (12) FAUSTINO (obstructive sleep apnea) Code(s): G47.33 - OBSTRUCTIVE SLEEP APNEA (ADULT) (PEDIATRIC) Status: Chronic (13) Obesity (BMI 30-39.9) Code(s): E66.9 - OBESITY, UNSPECIFIED Status: Chronic (14) Physical deconditioning Code(s): R53.81 - OTHER MALAISE Status: Chronic - Plan cont current plan of care, plan discussed w/ family, continue antibiotics, social worker school * warfarin started * picc line placed * iv antibiotics arrangement done * medically stable * continue following medication * symptomatic treatment as below. * stable for discharge Review of Systems - Review of Systems Constitutional: negative: fever, chills, sweats, weakness, malaise, other Eyes: negative: Pain, Vision Change, Conjunctivae Inflammation, Eyelid Inflammation, Redness, Other ENT: negative: Ear Pain, Ear Discharge, Nose Pain, Nose Discharge, Nose Congestion, Mouth Pain, Mouth Swelling, Throat Pain, Throat Swelling, Other Respiratory: negative: Cough, Dry, Shortness of Breath, Hemoptysis, SOB with Excertion, Pleuritic Pain, Sputum, Wheezing Cardiovascular: negative: chest pain, palpitations, orthopnea, paroxysmal nocturnal dyspnea, edema, light headedness, other Gastrointestinal: negative: Nausea, Vomiting, Abdominal Pain, Diarrhea, Constipation, Melena, Hematochezia, Other Genitourinary: negative: Dysuria, Frequency, Incontinence, Hematuria, Retention , Other Musculoskeletal: Leg Pain. negative: Neck Pain, Shoulder Pain, Arm Pain, Back Pain, Hand Pain, Foot Pain, Other Skin: negative: Rash, Lesions, Ananth, Bruising, Other - Medications/Allergies Allergies/Adverse Reactions: Allergies Allergy/AdvReac Type Severity Reaction Status Date / Time Penicillins Allergy Unknown Verified 06/04/18 18:32 nitrofurantoin Allergy Verified 06/04/18 18:33 [From Macrobid] sulfamethoxazole Allergy Verified 06/04/18 18:33 [From Bactrim] trimethoprim [From Bactrim] Allergy Verified 06/15/18 21:18 Medications: Current Medications Acetaminophen (Tylenol) 650 mg PO Q4H PRN PRN Reason: Headache/Fever or Pain Last Admin: 06/17/18 04:26 Dose: 650 mg Hydrocodone Bitart/Acetaminophen ([place] 5/325) 1 tab PO Q4H PRN PRN Reason: Moderate Pain (4-6) Last Admin: 06/16/18 19:32 Dose: 1 tab Hydrocodone Bitart/Acetaminophen ([place] 5/325) 2 tab PO Q4H PRN PRN Reason: Severe Pain (7-10) Last Admin: 06/17/18 07:49 Dose: 2 tab Acidophilus (Floranex) 1 tab PO TID [facility] Last Admin: 06/17/18 09:36 Dose: 1 tab Al Hydroxide/Mg Hydroxide (Maalox) 30 ml PO Q6H PRN PRN Reason: Heartburn or Indigestion Albuterol Sulfate (Albuterol Sulfate) 1.25 mg NEB Q8H PRN PRN Reason: SOB &/or Wheezing Allopurinol (Zyloprim) 100 mg PO DAILY [facility] Last Admin: 06/17/18 09:36 Dose: 100 mg Ascorbic Acid (Vitamin C) 1,000 mg PO DAILY [facility] Last Admin: 06/17/18 09:36 Dose: 1,000 mg Cyanocobalamin (Vitamin B-12) 1,000 mcg PO DAILY [facility] Last Admin: 06/17/18 09:38 Dose: 1,000 mcg Docusate Sodium (Colace) 100 mg PO BID [facility] Last Admin: 06/17/18 09:37 Dose: 100 mg Duloxetine HCl (Cymbalta) 60 mg PO DAILY [facility] Last Admin: 06/17/18 09:35 Dose: 60 mg Estradiol (Estrace 0.01% Vaginal Cream) 0 gm VAG Q2D [facility] Ferrous Sulfate (Feosol) 325 mg PO BID[facility] Last Admin: 06/17/18 09:35 Dose: 325 mg Fluticasone Propionate (Flonase Nasal [place]) 0 gm NASAL DAILY [facility] Last Admin: 06/17/18 09:38 Dose: 2 spray Furosemide (Lasix) 40 mg PO 0900 [facility] Last Admin: 06/17/18 09:38 Dose: 40 mg Furosemide (Lasix) 20 mg PO 1700 [facility] Last Admin: 06/16/18 17:02 Dose: 20 mg Gabapentin (Neurontin) 200 mg PO HS [facility] Last Admin: 06/16/18 20:33 Dose: 200 mg Gabapentin (Neurontin) 100 mg PO QAM [facility] Last Admin: 06/17/18 09:37 Dose: 100 mg Vancomycin HCl 1.5 gm/ Sodium (Chloride) 300 mls @ 200 mls/hr IVPB Q24HR@1500 [facility] Last Admin: 06/16/18 15:03 Dose: 300 mls Isosorbide Mononitrate (Imdur Er) 30 mg PO DAILY [facility] Last Admin: 06/17/18 09:36 Dose: 30 mg Loperamide HCl (Imodium) 2 mg PO PRN PRN PRN Reason: Diarrhea/Loose Stools Magnesium Hydroxide (Milk Of Magnesium) 30 ml PO DAILYPRN PRN PRN Reason: Constipation Magnesium Oxide (Magnesium Oxide) 400 mg PO BID [facility] Last Admin: 06/17/18 09:38 Dose: 400 mg Melatonin (Melatonin) 9 mg PO [facility] Methyldopa (Aldomet) 250 mg PO BID [facility] Last Admin: 06/17/18 09:38 Dose: 250 mg Miscellaneous Medication (Pharmacy To Dose) 0 each IVPB PRN PRN PRN Reason: VANC Pharmacy to Dose Multivitamins (Theragran) 1 tab PO DAILY [facility] Last Admin: 06/17/18 09:42 Dose: Not Given Multivitamins/Minerals (Ocuvite With Lutein) 1 tab PO DAILY [facility] Olmesartan (Benicar) 20 mg PO DAILY [facility] Last Admin: 06/17/18 09:36 Dose: 20 mg Ondansetron HCl (Zofran Odt) 4 mg PO Q6H PRN PRN Reason: Nausea/Vomiting Ondansetron HCl (Zofran) 4 mg IVP Q6H PRN PRN Reason: Nausea/Vomiting Pantoprazole Sodium (Protonix) 40 mg PO DAILY [facility] Last Admin: 06/17/18 09:37 Dose: 40 mg Potassium Chloride (Klor-Con 10) 10 meq PO BID[facility] Last Admin: 06/17/18 09:38 Dose: 10 meq Senna (Senokot) 2 tab PO HSPRN PRN PRN Reason: Constipation Sodium Chloride (Flush - Normal Saline) 10 ml IVF PRN PRN PRN Reason: Saline Flush Tramadol HCl (Ultram) 50 mg PO Q6H PRN PRN Reason: Breakthrough Pain Last Admin: 06/17/18 04:26 Dose: 50 mg Warfarin Sodium (Coumadin) 3 mg PO 1700 [facility] Last Admin: 06/16/18 16:59 Dose: Not Given Zinc Sulfate (Zinc Sulfate) 220 mg PO DAILY [facility] Last Admin: 06/17/18 09:41 Dose: 220 mg Zolpidem Tartrate (Ambien) 5 mg PO HSPRN PRN PRN Reason: Insomnia
[2018-06-17] MEDS: Lidocaine 2% PF Inj 2 ML VIAL NERVE BLCK SCH ×2 (12:39→12:40)
--- NOTE | 2018-06-17 12:57 | EKG ---
Test Reason : Blood Pressure : / mmHG Vent. Rate : 083 BPM Atrial Rate : 083 BPM P-R Int : 198 ms QRS Dur : 102 ms QT Int : 370 ms P-R-T Axes : 044 -43 056 degrees QTc Int : 434 ms Normal sinus rhythm Left axis deviation Moderate voltage criteria for LVH, may be normal variant Abnormal ECG Confirmed by ANTONIO GOVEA, AD ([id number]), editor magazine ISIDRA PURDY ([id number]) on 06/17/2018 12:56:50 PM Referred By: Confirmed By:AD ALVAREZ MD
[2018-06-17 14:34] LABS: Vancomycin, Trough 16.2 ug/mL
--- NOTE | 2018-06-17 15:29 | DIS ---
DATE OF ADMISSION: 06/15/2018 DATE OF DISCHARGE: 06/17/2018 PRIMARY CARE PHYSICIAN: Dr. Adams/Dr. Matt Briggs. DISCHARGE DISPOSITION: Home with home health and IV antibiotic therapy. PRIMARY DISCHARGE DIAGNOSES: 1. Acute kidney injury, improving. 2. Cellulitis around the right knee, improving. 3. Infection of the right knee arthroplasty. 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 PRIMARY PROCEDURE AND OPERATION: PICC line placement. RADIOLOGICAL INVESTIGATION: Ultrasound was negative for any DVT. Knee x-ray showed mild lucency alli rounding the proximal aspect of the tibial prosthesis of the right lower extremity, suspicious for lo osening. SIGNIFICANT LABORATORY DATA: WBC 7.4, hemoglobin 8.7, platelet 401. INR 1.0. Sodium 138, potassium 4.2, BUN 73, creatinine 1.20, calcium 9.8, AST 11, ALT 7, alkaline phosphatase 80, albumin 3.0. CRP 2.83. DISCHARGE MEDICATIONS: Patient will have vancomycin 1 gram IV daily as directed for 4 weeks. Subseq uently, the patient will continue doxycycline and rifampin for protracted period of time as per Dr. Tracy wynn. Continue following medications, Estrace vaginal cream every 2 days, Tylenol 1 gram q.6 hourly p.r.n., tramadol 50 mg q.6 hourly p.r.n., Ventolin nebulization q.8 hours p.r.n., allopurinol 100 mg daily, Cain b.i.d., vitamin C 1000 mg daily, vitamin B12 sublingual daily, Cymbalta 60 mg daily, Flonase na adry spray daily, Lasix 20 mg in the morning and 40 mg in evening, gabapentin 100 mg in the morning an d 200 mg p.o. at bedtime, [place] 1 tablet q.6 hours p.r.n., Floranex 1 tablet p.o. t.i.d., magnesium o xide 400 mg p.o. b.i.d., melatonin 10 mg p.o. at bedtime, Methyldopa 250 mg p.o. b.i.d., multivitamin 1 tablet p.o. daily, Benicar 20 mg p.o. daily, Protonix 40 mg p.o. daily, Ocuvite 1 capsule daily, z inc 220 mg p.o. daily, Colace 100 mg p.o. b.i.d., ferrous sulfate 325 mg p.o. b.i.d., Imdur 30 mg jacky ly, potassium chloride 10 mEq p.o. b.i.d., warfarin 3 mg p.o. daily. CONTRAINDICATIONS: None. CODE STATUS: FULL CODE. INPATIENT CONSULTANTS: Dr. Cai was consulted while in hospital and he recommended that the patient ideally needs revision of arthroplasty, but patient and family member was not interested in going fo r another surgery and that is why he recommended to continue vancomycin for 1 month and then protract ed period of her doxycycline and rifampin. Dr. Baez was following for her left lower extremity wo und, which happened after hematoma evacuation. TEST RESULTS PENDING ON DISCHARGE: None. ALLERGIES: PENICILLIN, MACROBID, SULFA DRUGS. DISCHARGE PLAN: Post hospital, the patient is discharged home with home health with IV antibiotic th erapy. Patient will continue wound care with home health. HOSPITAL COURSE: An 82-year-old female who was recently admitted in our hospital. At that time, cira hood's hospital course complicated with hematoma on the left lower extremity, which required evacuati on and subsequently patient had a wound, which was treated with wound vacuum. She was discharged sloane e and she came back again because at this time she was having swelling around right knee. Family mem adalberto was worried about knee infection. Ultrasound was negative for any DVT on the lower extremity. Abhishek perez was admitted to medical floor. She was treated with vancomycin in the emergency room as well as in the hospital. Her culture which was done from knee aspiration at orthopedic office at the [facility] showed coagulase negative Staph aureus and based on that, patient was consulted by Dr. Cai, who rec ommended revision of knee arthroplasty, but patient and family member were not interested in going fo r that procedure and that is why they opted IV antibiotic therapy. The patient will need IV antibiot ic therapy for 1 month and then protracted period of time, rifampin and doxycycline. PICC line was p laced. clinical safety manager was consulted for IV antibiotic therapy, which was also arranged. Dr. Nestor jean evaluated this patient for her lower extremity wound, which appeared to be stable and improving. The rest of medication was continued while in hospital as well as upon discharge. The patient is seen and examined at bedside today. Plan of care discussed with the patient's trevin vega in detail. During this admission, we mutually decided to start warfarin therapy and the warfarin i s started. The patient has close followup appointment with primary care physician for INR monitoring . Total time spent on discharge day 35 minutes.
[2018-06-17] MEDS: Vancomycin HCl 1.5 GM in Sodium Chloride 0.9% 250 ML 300 ML IVPB SCH (15:31)
[2018-06-17] MEDS: Furosemide 20 MG TAB PO SCH (16:58)
[2018-06-17] MEDS ORDERED: Estradiol 0.01% Vaginal Cream 42.5 gm Tube VAG SCH ×2 (21:00)
[2018-06-17] MEDS ORDERED: Melatonin 3 MG TAB PO SCH (21:00)
[2018-06-17] MEDS ORDERED: Non-Formulary Item 1 EACH (Melatonin [Melatonin] 10 MG) PO SCH (21:00)
[2018-06-18] MEDS ORDERED: Warfarin Sodium 3 MG TAB PO SCH (11:00)
== END 2018-06-17 19:00 | disposition home health service (06) | DRG 560 ==
LOC: ERS 13:05 → ONC 19:19
PROVIDERS: ADMIT Internal Medicine; ATTEND Internal Medicine
PROC: 02HV33Z Insertion of Infusion Device into Superior Vena Cava, Percutaneous Approach (ICD-10-PCS; principal; 2018-06-17)
DX: T84.53XA Infection and inflammatory reaction due to internal right knee prosthesis, initial encounter (principal); L03.115 Cellulitis of right lower limb; N17.9 Acute kidney failure, unspecified; M00.9 Pyogenic arthritis, unspecified; I50.32 Chronic diastolic (congestive) heart failure; I13.0 Hypertensive heart and chronic kidney disease with heart failure and stage 1 through stage 4 chronic kidney disease, or unspecified chronic kidney disease; D68.59 Other primary thrombophilia; D53.9 Nutritional anemia, unspecified; F41.9 Anxiety disorder, unspecified; F32.9 Major depressive disorder, single episode, unspecified; I89.0 Lymphedema, not elsewhere classified; E78.5 Hyperlipidemia, unspecified; Z96.651 Presence of right artificial knee joint; S81.802A Unspecified open wound, left lower leg, initial encounter; G47.33 Obstructive sleep apnea (adult) (pediatric); E66.9 Obesity, unspecified; Z86.711 Personal history of pulmonary embolism; Z86.718 Personal history of other venous thrombosis and embolism; Z79.01 Long term (current) use of anticoagulants; K21.9 Gastro-esophageal reflux disease without esophagitis; N18.3 Chronic kidney disease, stage 3 (moderate); Z68.35 Body mass index [BMI] 35.0-35.9, adult; M10.9 Gout, unspecified
CPT/HCPCS: 36415; 36569; 80048; 80053; 80202; 85025; 85610; 85652; 85730; 86140; 93005; 96365; C1751; J1642; J1650; J2001; J3370; J7050

== ENCOUNTER → 2018-07-01 | Day surgery (SDC) | payer MEDICARE ==
--- NOTE | 2018-07-01 16:25 | SPC ---
RIGHT UPPER EXTREMITY PICC LINE REPLACEMENT: 07/01/2018 HISTORY: The patient has a right upper extremity PICC line placed, but the PICC line was unable to be aspirate d. Replacement of the PICC line was requested. TECHNIQUE: After informed consent was obtained, the patient was placed on the angiography table in the supine po sition. The right upper extremity PICC line was withdrawn approximately 4 cm, and the PICC line and surrounding catheter entry site was meticulously prepped and draped in the usual sterile fashion. The PICC line was further removed and then cut, and a 0.018 inch guidewire was placed and the cathete r was removed. The catheter was measured and then cut to the appropriate length. A 5 Urdu peel-away sheath was placed over the guidewire. The new PICC line was placed over the mateusz dewire, with the tip position overlying the distal SVC. The guidewire and peel-away sheath were pilar giovanna. Each port on the double-lumen PICC line was accessed and aspirated/flushed easily. The cathete r was secured to the skin utilizing a dry, sterile dressing. The patient tolerated the procedure well and without immediate complications. FINDINGS: Technically successful replacement of a double-lumen, 5 Urdu, 39.5 cm PICC line, with tip position overlying the distal SVC. FLUOROSCOPY: Total fluoroscopy time is 0.4 minutes with a total dose of 1721 mGy per cm2. IMPRESSION: Technically successful right upper extremity peripherally inserted central catheter line replacement. POS: [facility]
== END ==
LOC: SPEC 12:57
PROVIDERS: ATTEND Internal Medicine Infectious Disease
PROC: 02PY33Z Removal of Infusion Device from Great Vessel, Percutaneous Approach (ICD-10-PCS; principal; 2018-07-01)
PROC: 02HV33Z Insertion of Infusion Device into Superior Vena Cava, Percutaneous Approach (ICD-10-PCS; 2018-07-01)
DX: T80.219A Unspecified infection due to central venous catheter, initial encounter (principal); Z79.2 Long term (current) use of antibiotics
CPT/HCPCS: 36584; C1751

== ENCOUNTER 2018-07-06 11:17 | Outpatient (CLI) | payer MEDICARE ==
--- NOTE | 2018-07-06 14:46 | HP ---
DATE OF ADMISSION: 07/06/2018 HISTORY OF PRESENT ILLNESS: Ms. Dodie Trinidad is a very pleasant 82-year-old accompanied by her da grupoer who presents to the [facility]ound Center for evaluation of a large wound of the left lateral lower leg subsequent to incision and drainage of a left leg hematoma on 06/06/[address] Robinson Baez. Neg ative pressure therapy was initiated subsequent to surgery and the patient is presently receiving emilee ssing changes of the wound VAC 3 times per week with the assistance of Home Health. The patient was recently evaluated by Dr. Robin Kaspre for skin graft placement, which the patient declines at the pr esent time. PAST MEDICAL HISTORY: 1. Osteoarthritis. 2. History of non-Hodgkin's lymphoma status post chemotherapy with bleomycin and radiation therapy i 1992. 3. History of pulmonary embolus. 4. Chronic lymphedema. 5. Hypertension. 6. Obstructive sleep apnea. 7. History of deep venous thrombosis. 8. Left atrophic kidney. 9. Chronic kidney disease. 10. Right hydronephrosis. 11. Congestive heart failure. 12. Anemia. PAST SURGICAL HISTORY: 1. Bilateral cataract surgery. 2. Cholecystectomy. 3. Right total knee arthroplasty with subsequent revision after patellar tendon rupture. 4. Incision and drainage of left leg hematoma. MEDICATIONS: 1. Multivitamin. 2. Zinc. 3. Coumadin. 4. Protonix. 5. Vitamin C. 6. Allopurinol. 7. Floranex. 8. Flonase. 9. Magnesium oxide. 10. Methyldopa. 11. Iron. 12. Tramadol. 13. [place]. 14. Colace. 15. Imdur. 16. Gabapentin. 17. Benicar. 18. Lasix. 19. Duloxetine. 20. Klor-Con. ALLERGIES: LATEX, PENICILLIN. SOCIAL HISTORY: Negative for tobacco or ETOH use. FAMILY HISTORY: Negative for diabetes mellitus or coronary artery disease. REVIEW OF SYSTEMS: The patient is presently receiving vancomycin intravenously as per Infectious Dis eases for an infectious process of the patient's right knee arthroplasty. PHYSICAL EXAMINATION: VITAL SIGNS: Temperature 98.1, pulse 88, respirations 19, blood pressure 144/67. GENERAL: An 82-year-old female sitting on chair in examination room, in no acute distress. HEENT: Normocephalic, atraumatic. NECK: No nuchal rigidity. CHEST: Clear to auscultation. CARDIAC: Regular rate and rhythm. ABDOMEN: Soft. EXTREMITIES: A large wound of the left lateral lower leg is present, which measures approximately 20 .0 x 11.0 cm. Granulation tissue is present within the wound margins. No purulent drainage is assoc iated with the wound. No cellulitis of the left lower leg is appreciated. No maceration of the skin of the periwound is noted. Edema of the left lower leg is noted on exam today. ASSESSMENT AND PLAN: 1. Left lateral lower leg wound. This healing of the wound appears to be complicated by chronic maira ous hypertension. Negative pressure therapy will be continued with dressing changes of the wound VAC 3 times per week with the assistance of Home Health. As stated above, the patient is receiving IV a ntibiotics as per Dr. Frank Cai of Infectious Diseases for an infectious process of the right kne e arthroplasty. I will see Ms. Trinidad again in 2 weeks. I have explained to the patient and her da ughter if the dimensions of the wound fail to decrease in a timely manner over the next 4 weeks, cons ideration will need to be given to treatment with a skin substitute. The patient and her daughter un derstand and are in agreement with the preceding treatment plan. 2. Osteoarthritis. 3. History of non-Hodgkin's lymphoma status post chemotherapy with bleomycin and radiation therapy i 1992. 4. History of pulmonary embolus. 5. Chronic lymphedema. 6. Hypertension. 7. Obstructive sleep apnea. 8. History of deep venous thrombosis. 9. Left atrophic kidney. 10. Chronic kidney disease. 11. Right hydronephrosis. 12. Congestive heart failure. 13. Anemia.
[2018-07-06] MEDS ORDERED: Lidocaine 4% Topical Sol 50 ML BOT ONE (15:45)
[2018-07-06] MEDS ORDERED: Sodium Chloride 0.9% 15 ML NEB ONE (15:45)
== END 2018-07-06 11:18 | disposition home or self-care (01) ==
LOC: WCC 11:17
PROVIDERS: ATTEND Family Medicine
DX: T81.89XD Other complications of procedures, not elsewhere classified, subsequent encounter (principal); I89.0 Lymphedema, not elsewhere classified; M19.90 Unspecified osteoarthritis, unspecified site; G47.33 Obstructive sleep apnea (adult) (pediatric); I13.0 Hypertensive heart and chronic kidney disease with heart failure and stage 1 through stage 4 chronic kidney disease, or unspecified chronic kidney disease; N18.9 Chronic kidney disease, unspecified; I50.9 Heart failure, unspecified; D63.1 Anemia in chronic kidney disease; N13.30 Unspecified hydronephrosis; N26.1 Atrophy of kidney (terminal); Z86.718 Personal history of other venous thrombosis and embolism; Z85.72 Personal history of non-Hodgkin lymphomas; Z90.49 Acquired absence of other specified parts of digestive tract; Z98.890 Other specified postprocedural states
CPT/HCPCS: 97602; 99203; A4218; G0463; J2001

== ENCOUNTER 2018-07-20 13:52 | Outpatient (CLI) | payer MEDICARE ==
[~2018-07-20 13:52] MED LIST: Sodium Chloride 0.9% 15 ML NEB ONE
--- NOTE | 2018-07-20 16:04 | PRG ---
DATE OF SERVICE: 07/20/2018 HISTORY: Ms. Dodie Trinidad is a very pleasant 82-year-old accompanied by her daughter who presents to the Wound Center for evaluation of a large wound of the left lateral lower leg subsequent to inci karin and drainage of a left leg hematoma on 06/06/[address] Robinson Baez. Negative pressure ther apy was initiated subsequent to surgery and the patient continues to receive dressing changes of the wound VAC 3 times per week with the assistance of Home Health. The patient was recently evaluated by Dr. Robin Kasper for skin graft placement which the patient continues to decline at the present time . PHYSICAL EXAMINATION: VITAL SIGNS: Temperature 98.2, pulse 85, respirations 20, blood pressure 147/68. EXTREMITIES: A large wound of the left lateral lower leg is present which measures approximately 18. 2 x 11.4 cm. The dimensions of the wound at the time of the patient's last visit were approximately 20.0 x 11.0 cm. Granulation tissue is present within the wound margins. No purulent drainage is ass ociated with the wound. No cellulitis of the left lower leg is appreciated. No maceration of the sk in of the periwound is noted. Edema of the left lower leg is noted on exam today. ASSESSMENT AND PLAN: 1. Left lateral lower leg wound. Healing of the wound appears to be complicated by chronic venous h ypertension. Negative pressure therapy will be continued with dressing changes of the wound VAC 3 ti mes per week with the assistance of Home Health. The patient is receiving IV antibiotics as per Dr. Frank Cai of Infectious Diseases for an infectious process of the right knee arthroplasty. I bryanna l see Ms. Trinidad again in two weeks. At this time, consideration will be given to treatment with a skin substitute, specifically Hyalomatrix or MatriStem sheet. Again, the patient and her daughter un derstand and are in agreement with the preceding treatment plan. 2. Osteoarthritis. 3. History of non-Hodgkin's lymphoma status post chemotherapy with bleomycin and radiation therapy i 1992. 4. History of pulmonary embolus. 5. Chronic lymphedema. 6. Hypertension. 7. Obstructive sleep apnea. 8. History of deep venous thrombosis. 9. Left atrophic kidney. 10. Chronic kidney disease. 11. Right hydronephrosis. 12. Congestive heart failure. 13. Anemia.
== END 2018-07-20 13:53 | disposition home or self-care (01) ==
LOC: WCC 13:52
PROVIDERS: ATTEND Family Medicine
DX: T81.89XD Other complications of procedures, not elsewhere classified, subsequent encounter (principal); M19.90 Unspecified osteoarthritis, unspecified site; I89.0 Lymphedema, not elsewhere classified; I13.0 Hypertensive heart and chronic kidney disease with heart failure and stage 1 through stage 4 chronic kidney disease, or unspecified chronic kidney disease; I50.9 Heart failure, unspecified; N18.9 Chronic kidney disease, unspecified; D63.1 Anemia in chronic kidney disease; G47.33 Obstructive sleep apnea (adult) (pediatric); N13.30 Unspecified hydronephrosis; N26.1 Atrophy of kidney (terminal); Z86.718 Personal history of other venous thrombosis and embolism; Z86.711 Personal history of pulmonary embolism; Z85.72 Personal history of non-Hodgkin lymphomas
CPT/HCPCS: 97602; A4218

== ENCOUNTER → 2018-07-20 | Day surgery (SDC) | payer MEDICARE ==
[2018-07-20 16:44] LABS: #Eosinphils 0.2 thou/uL (0.0-0.7); #Lymphocytes 1.8 thou/uL (1.20-3.40); #Monocytes 0.7 thou/uL (0.11-0.59); #Neutrophils 7.9 thou/uL (1.40-6.50); %Basophils 0.2 % (0.0-1.0); %Lymphocytes 16.6 % (21.0-51.0); %Monocytes 6.9 % (0.0-10.0); %Neutrophils 74.3 % (42.0-75.0); Hemoglobin 11.2 g/dL (12.0-16.0); Mean Corpuscular HGB CONC 31.1 g/dL (32.0-36.0); Mean Corpuscular Hemoglobin 30.7 pg (27.0-31.0); Mean Corpuscular Volume 98.8 fL (78.0-98.0); Mean Platelet Volume 8.1 fL (7.4-10.4); Platelet Count 375 thou/uL (130-400); RBC Distribution Width 14.1 % (11.5-14.5); Red Blood Cell (RBC) Count 3.64 mill/uL (4.20-5.40); White Blood Cell (WBC) Count 10.6 thou/uL (4.8-10.8)
[2018-07-20 16:54] LABS: Vancomycin, Trough 18.2 ug/mL
[2018-07-20 16:56] LABS: ALT (SGPT) 9 U/L (8-55); AST (SGOT) 13 U/L (5-34); Albumin 3.5 g/dL (3.4-4.8); Alkaline Phosphatase 94 U/L (40-150); Anion Gap 12 mmol/L (10-20); BUN (Urea Nitrogen) 87 mg/dL (9.8-20.1); Bilirubin, Total 0.2 mg/dL (0.2-1.2); CRP (Inflammatory) 1.45 mg/dL (= or < 0.5); Calc. Creatinine Clearance 0 mL/min (70-130); Calcium 9.9 mg/dL (7.8-10.44); Carbon Dioxide 33 mmol/L (23-31); Chloride 98 mmol/L (98-107); Estimated GFR-MDRD 32; Globulin 3.1 g/dL (2.4-3.5); Glucose 106 mg/dL (83-110); Potassium 4.9 mmol/L (3.5-5.1); Protein, Total 6.6 g/dL (6.0-8.3); Sodium 138 mmol/L (136-145)
== END ==
LOC: ONC/OP 13:50
PROVIDERS: ATTEND Internal Medicine Infectious Disease
DX: M00.861 Arthritis due to other bacteria, right knee (principal); Z79.01 Long term (current) use of anticoagulants; Z79.899 Other long term (current) drug therapy; Z88.0 Allergy status to penicillin; Z88.2 Allergy status to sulfonamides; Z88.8 Allergy status to other drugs, medicaments and biological substances
CPT/HCPCS: 80053; 80202; 85025; 85652; 86140

== ENCOUNTER 2018-08-03 14:26 | Outpatient (CLI) | payer MEDICARE ==
--- NOTE | 2018-08-03 16:02 | PRG ---
DATE OF SERVICE: 08/03/2018 HISTORY: Ms. oDdie Trinidad is a very pleasant 82-year-old accompanied by her daughter who presents to the [facility] for evaluation of a large wound of the left lateral lower leg subsequent to inci karin and drainage of a left leg hematoma on 06/06/[address] Robinson Baez. Negative pressure ther apy was initiated subsequent to surgery and the patient continues to receive dressing changes of the wound VAC 3 times per week with the assistance of Home Health. The patient was recently evaluated by Dr. Rboin Kasper for skin graft placement which the patient continues to decline. PHYSICAL EXAMINATION: VITAL SIGNS: Temperature 98.3, pulse 87, respirations 20, blood pressure 114/79. EXTREMITIES: A large wound of the left lateral lower leg is present which measures approximately 18. 4 x 12.0 cm. The dimensions of the wound at the time of the patient's last visit were approximately 18.2 x 11.4 cm. Granulation tissue is present within the wound margins. No purulent drainage is ass ociated with the wound. No cellulitis of the left lower leg is appreciated. No maceration of the sk in of the periwound is noted. MatriStem sheet 7 x 10 cm was applied to the wound bed followed by Mep itel and the GranuFoam of the wound VAC. Edema of the left lower leg is again noted on today's exam. ASSESSMENT AND PLAN: 1. Chronic venous hypertension with ulceration. MatriStem was applied to the wound bed of the ulcer ation today. Orders will be transmitted to Home Health for the next dressing change to be performed on 08/07/2018. The wound VAC will be placed to settings of 125 mmHg, continuous. I will see Ms. Raquel irene again in one week. The patient has completed a course of IV antibiotics as per Dr. Frank cota of Infectious Diseases for an infectious process of the right knee arthroplasty. 2. Osteoarthritis. 3. History of non-Hodgkin's lymphoma status post chemotherapy with bleomycin and radiation therapy i 1992. 4. History of pulmonary embolus. 5. Chronic lymphedema. 6. Hypertension. 7. Obstructive sleep apnea. 8. History of deep venous thrombosis. 9. Left atrophic kidney. 10. Chronic kidney disease. 11. Right hydronephrosis. 12. Congestive heart failure. 13. Anemia.
== END 2018-08-03 14:27 | disposition home or self-care (01) ==
LOC: WCC 14:26
PROVIDERS: ATTEND Family Medicine
DX: I87.312 Chronic venous hypertension (idiopathic) with ulcer of left lower extremity (principal); I13.0 Hypertensive heart and chronic kidney disease with heart failure and stage 1 through stage 4 chronic kidney disease, or unspecified chronic kidney disease; I50.9 Heart failure, unspecified; N18.9 Chronic kidney disease, unspecified; D63.1 Anemia in chronic kidney disease; I89.0 Lymphedema, not elsewhere classified; G47.33 Obstructive sleep apnea (adult) (pediatric); M19.90 Unspecified osteoarthritis, unspecified site; N26.1 Atrophy of kidney (terminal); N13.30 Unspecified hydronephrosis; Z86.718 Personal history of other venous thrombosis and embolism; Z86.711 Personal history of pulmonary embolism; Z85.72 Personal history of non-Hodgkin lymphomas
CPT/HCPCS: 99213; A4218; C5273; G0463; Q4166-KX-JC

== ENCOUNTER 2018-08-10 14:12 | Outpatient (CLI) | payer MEDICARE ==
[2018-08-10] MEDS ORDERED: Lidocaine 4% Topical Sol 50 ML BOT ONE (15:49)
[2018-08-10] MEDS ORDERED: Sodium Chloride 0.9% 15 ML NEB ONE (15:49)
--- NOTE | 2018-08-10 16:21 | PRG ---
DATE OF SERVICE: 08/10/2018 HISTORY: Ms. Dodie Trinidad is a very pleasant 82-year-old, accompanied by her daughter, who presen ts to the Wound Center for evaluation of a large wound of the left lateral lower leg subsequent to in cision and drainage of a left leg hematoma on 06/06/[address] Robinson Baez. Negative pressure th erapy was initiated subsequent to surgery and the patient continues to receive dressing changes of th e wound VAC 3 times per week with the assistance of Home Health. The patient has been evaluated by Marisela Kasper for skin graft placement, which the patient declined. Ms. Trinidad is presently recei ving treatment with MatriStem sheet. PHYSICAL EXAMINATION: VITAL SIGNS: Temperature 97.9, pulse 79, respirations 18, blood pressure 150/65. EXTREMITIES: A large wound of the left lateral lower leg is present, which measures approximately 18 .0 x 12.6 cm. The dimensions of the wound at the time of the patient's visit on 08/03/2018 were appr oximately 18.4 x 12.0 cm. Granulation tissue was present within the wound margins. No purulent drai nage is associated with the wound. No cellulitis of the left lower leg is appreciated. No maceratio n of the skin of the periwound is noted. MatriStem sheet 7 x 10 cm was applied to the wound bed foll owed by Mepitel and the GranuFoam of the wound VAC edema of the left. Edema of the left lower leg is once again noted on exam today. ASSESSMENT AND PLAN: 1. Chronic venous hypertension with ulceration. MatriStem sheet was applied to the wound bed of the ulceration today. Orders will be transmitted to Home Health for the next dressing change to be perf ormed on 08/14/2018. The wound VAC will be placed to settings of 125 mmHg continuous. I will see Ms Steven Trinidad again in 1 week. The patient has completed a course of IV antibiotics as per Dr. Frank wynn of Infectious Diseases for an infectious process of the right knee arthroplasty. 2. Osteoarthritis. 3. History of non-Hodgkin's lymphoma, status post chemotherapy with bleomycin and radiation therapy in 1992. 4. History of pulmonary embolus. 5. Chronic lymphedema. 6. Hypertension. 7. Obstructive sleep apnea. 8. History of deep venous thrombosis. 9. Left atrophic kidney. 10. Chronic kidney disease. 11. Right hydronephrosis. 12. Congestive heart failure. 13. Anemia.
== END 2018-08-10 14:13 | disposition home or self-care (01) ==
LOC: WCC 14:12
PROVIDERS: ATTEND Family Medicine
DX: I87.312 Chronic venous hypertension (idiopathic) with ulcer of left lower extremity (principal); L97.929 Non-pressure chronic ulcer of unspecified part of left lower leg with unspecified severity; G47.33 Obstructive sleep apnea (adult) (pediatric); I10 Essential (primary) hypertension; I89.0 Lymphedema, not elsewhere classified; I25.10 Atherosclerotic heart disease of native coronary artery without angina pectoris; M19.90 Unspecified osteoarthritis, unspecified site; N18.9 Chronic kidney disease, unspecified; N26.1 Atrophy of kidney (terminal); N13.30 Unspecified hydronephrosis; I50.9 Heart failure, unspecified; D64.9 Anemia, unspecified; Z85.72 Personal history of non-Hodgkin lymphomas; Z92.21 Personal history of antineoplastic chemotherapy; Z92.3 Personal history of irradiation; Z86.718 Personal history of other venous thrombosis and embolism
CPT/HCPCS: A4218; C5271; C5272; J2001; Q4166-KX-JC

== ENCOUNTER 2018-08-16 10:21 | Inpatient (IN) | payer MEDICARE ==
[2018-08-16 11:23] LABS: INR-International Normal Ratio 2.6; Prothrombin Time 28.1 SEC (12.0-14.7)
[2018-08-16 11:24] LABS: PTT 64.3 SEC (22.9-36.1)
[2018-08-16 11:39] LABS: ALT (SGPT) 7 U/L (8-55); AST (SGOT) 14 U/L (5-34); Albumin 3.1 g/dL (3.4-4.8); Alkaline Phosphatase 88 U/L (40-150); Anion Gap 18 mmol/L (10-20); BUN (Urea Nitrogen) 84 mg/dL (9.8-20.1); Bilirubin, Total 0.4 mg/dL (0.2-1.2); Calc. Creatinine Clearance 0 mL/min (70-130); Calcium 10.1 mg/dL (7.8-10.44); Carbon Dioxide 24 mmol/L (23-31); Chloride 95 mmol/L (98-107); Estimated GFR-MDRD 33; Globulin 3.2 g/dL (2.4-3.5); Glucose 194 mg/dL (83-110); Lipase 5 U/L (8-78); Potassium 4.2 mmol/L (3.5-5.1); Protein, Total 6.3 g/dL (6.0-8.3); Sodium 133 mmol/L (136-145)
[2018-08-16 11:41] LABS: CKMB 0.7 ng/mL (0-6.6); Troponin I 0.047 ng/mL (< 0.028)
[2018-08-16 11:42] LABS: Bilirubin Negative (Negative); Blood, Urine Negative (Negative); Clarity CLEAR (Clear); Glucose, Urine (Dipstick) Negative (Negative); Leukocyte Large (Negative); Nitrite Negative (Negative); Protein, Urine (Dipstick) 30 mg/dL (Neg-Trace); Specific Gravity, Urine 1.015 (1.002-1.036); Urobilinogen 0.2 mg/dL (0.2-1.0); pH, Urine 7.5 (5.0-9.0)
[2018-08-16 11:42] LABS: Band 13 % (5-11); Hemoglobin 11.1 g/dL (12.0-16.0); Lymphocytes 10 % (21-51); MDiff Complete? YES; Mean Corpuscular HGB CONC 30.6 g/dL (32.0-36.0); Mean Corpuscular Hemoglobin 29.6 pg (27.0-31.0); Mean Corpuscular Volume 96.8 fL (78.0-98.0); Mean Platelet Volume 8.4 fL (7.4-10.4); Metamyelocyte 1 % (0-0); Monocytes 1 % (0-10); Neutrophil 75 % (42-75); Platelet Count 309 thou/uL (130-400); RBC Distribution Width 13.9 % (11.5-14.5); Red Blood Cell (RBC) Count 3.76 mill/uL (4.20-5.40); White Blood Cell (WBC) Count 18.6 thou/uL (4.8-10.8)
--- NOTE | 2018-08-16 11:42 | RAD ---
UPRIGHT AP CHEST: Date: 08/16/18 INDICATION: Fever. COMPARISON: 06/05/18. FINDINGS: The lung wallace appear clear. Slight elevation left hemidiaphragm is a stable finding. Mild cardiomeg skylar is unchanged. Vascular markings within normal range. IMPRESSION: No acute process or interval change noted. POS: [facility]
[2018-08-16 11:58] LABS: Bacteria/HPF None Seen HPF (None Seen); Hyaline Casts/LPF NONE SEEN LPF (0-3 Hyaline); RBC/HPF None Seen HPF (0-3); Squamous Epithelial 0-3 HPF (0-3); WBC/HPF None Seen HPF (0-3)
[2018-08-16] MEDS ORDERED: Cefepime 2 GM VIAL ONE (13:02)
[2018-08-16] MEDS ORDERED: Acetaminophen 500 MG TAB ONE (13:18)
[2018-08-16] MEDS ORDERED: traMADol HCl 50 MG TAB ONE (13:18)
--- NOTE | 2018-08-16 13:35 | ULT ---
LEFT LOWER EXTREMITY VENOUS DUPLEX EXAM: Date: 08/16/18 Deep veins of the left lower extremity evaluated with color Doppler, spectral analysis, and compressi on. INDICATION: Left lower extremity erythema and edema. FINDINGS: Deep veins of left lower extremity show normal blood flow and compression. No evidence of deep venous thrombosis. IMPRESSION: No evidence of left lower extremity deep venous thrombosis. POS: [facility]
[2018-08-16] MEDS ORDERED: Ondansetron PF 4 MG/2 ML Vial IVP PRN (14:46)
[2018-08-16] MEDS ORDERED: Calcium Carbonate 500 MG ChewTAB PO PRN (14:46)
[2018-08-16] MEDS ORDERED: Ondansetron ODT 4 MG TAB PO PRN (14:46)
[2018-08-16] MEDS ORDERED: Senokot S 8.6-50 MG TAB PO PRN (14:46)
[2018-08-16] MEDS ORDERED: Nitroglycerin 0.4 MG TAB (25 Tab Bottle) PO PRN (14:52)
[2018-08-16] MEDS ORDERED: hydrALAZINE 20 MG/ML VIAL SLOW IVP PRN (14:53)
[2018-08-16] MEDS ORDERED: Sodium Chloride 0.9% 1,000 ML IV SCH (15:00)
[2018-08-16] MEDS ORDERED: DULoxetine 60 MG CAP PO SCH (16:00)
[2018-08-16] MEDS ORDERED: Gabapentin 100 MG CAP PO SCH (16:00)
[2018-08-16 16:01] LABS: Lactic Acid 1.5 mmol/L (0.5-2.2)
[2018-08-16 16:10] LABS: Troponin I 0.054 ng/mL (< 0.028)
[2018-08-16] MEDS: Potassium Chloride 10 MEQ TAB PO SCH (16:27)
[2018-08-16] MEDS: Furosemide 40 MG TAB PO SCH (16:27)
[2018-08-16] MEDS: Sodium Chloride 0.9% 1,000 ML IV SCH (16:27)
[2018-08-16] MEDS ORDERED: Warfarin Sodium 3 MG TAB PO SCH (17:00)
[2018-08-16 18:27] LABS: Hemoglobin 10.9 g/dL (12.0-16.0); Platelet Count 295 thou/uL (130-400)
[2018-08-16 18:33] LABS: INR-International Normal Ratio 2.9
[2018-08-16] MEDS: Docusate 100 MG CAP PO SCH (20:03)
[2018-08-16] MEDS: Melatonin 3 MG TAB PO SCH (20:03)
[2018-08-16] MEDS: Gabapentin 100 MG CAP PO SCH (20:03)
[2018-08-16] MEDS: Ferrous Sulfate 325 MG TAB PO SCH (20:04)
[2018-08-16] MEDS: Lactinex Tablet PO SCH (20:04)
[2018-08-16] MEDS: Magnesium Oxide 400 MG TAB PO SCH (20:06)
[2018-08-16] MEDS: Estradiol 0.01% Vaginal Cream 42.5 gm Tube VAG SCH (20:06)
[2018-08-16] MEDS: HYDROcodone/Acetaminophen 5/325 mg Tablet PO PRN (20:10)
[2018-08-16] MEDS ORDERED: PROTEIN SUPPLEMENT PO SCH (21:00)
[2018-08-16] MEDS: traMADol HCl 50 MG TAB PO PRN (22:04)
[2018-08-17] MEDS: HYDROcodone/Acetaminophen 5/325 mg Tablet PO PRN ×3 (01:35→18:00)
[2018-08-17 05:32] LABS: #Eosinphils 0.1 thou/uL (0.0-0.7); #Lymphocytes 0.7 thou/uL (1.20-3.40); #Monocytes 0.4 thou/uL (0.11-0.59); #Neutrophils 8.3 thou/uL (1.40-6.50); %Basophils 0.2 % (0.0-1.0); %Eosinophils 0.6 % (0.0-10.0); %Lymphocytes 7.4 % (21.0-51.0); %Monocytes 3.8 % (0.0-10.0); %Neutrophils 87.9 % (42.0-75.0); Hemoglobin 9.7 g/dL (12.0-16.0); Mean Corpuscular Hemoglobin 29.9 pg (27.0-31.0); Mean Corpuscular Volume 96.3 fL (78.0-98.0); Mean Platelet Volume 8.2 fL (7.4-10.4); Platelet Count 269 thou/uL (130-400); RBC Distribution Width 13.7 % (11.5-14.5); Red Blood Cell (RBC) Count 3.24 mill/uL (4.20-5.40); White Blood Cell (WBC) Count 9.5 thou/uL (4.8-10.8)
[2018-08-17 05:49] LABS: INR-International Normal Ratio 3.3; Prothrombin Time 33.9 SEC (12.0-14.7)
[2018-08-17 05:53] LABS: ALT (SGPT) 7 U/L (8-55); AST (SGOT) 14 U/L (5-34); Albumin 2.6 g/dL (3.4-4.8); Alkaline Phosphatase 77 U/L (40-150); Anion Gap 10 mmol/L (10-20); BUN (Urea Nitrogen) 79 mg/dL (9.8-20.1); Bilirubin, Total 0.3 mg/dL (0.2-1.2); Calc. Creatinine Clearance 52 mL/min (70-130); Calcium 9.8 mg/dL (7.8-10.44); Carbon Dioxide 32 mmol/L (23-31); Chloride 97 mmol/L (98-107); Estimated GFR-MDRD 41; Globulin 2.9 g/dL (2.4-3.5); Glucose 109 mg/dL (83-110); Magnesium 2.2 mg/dL (1.6-2.6); Phosphorus 2.3 mg/dL (2.3-4.7); Potassium 4.2 mmol/L (3.5-5.1); Protein, Total 5.5 g/dL (6.0-8.3); Sodium 135 mmol/L (136-145)
[2018-08-17] MEDS ORDERED: Saccharomyces boulardii 250 MG CAP PO SCH (09:00)
[2018-08-17] MEDS: Furosemide 40 MG TAB PO SCH ×2 (09:34→18:00)
[2018-08-17] MEDS: Olmesartan 5 MG TAB PO PRN (09:34)
[2018-08-17] MEDS: Docusate 100 MG CAP PO SCH ×2 (09:34→20:15)
[2018-08-17] MEDS: Lactinex Tablet PO SCH ×2 (09:35→20:14)
[2018-08-17] MEDS: Ascorbic Acid 500 mg Chewable Tablet PO SCH (09:35)
[2018-08-17] MEDS: Multivit, Therapeutic 1 TAB PO SCH (09:35)
[2018-08-17] MEDS: Zinc Sulfate 220 MG CAP PO SCH (09:35)
[2018-08-17] MEDS: Magnesium Oxide 400 MG TAB PO SCH ×2 (09:35→20:15)
[2018-08-17] MEDS: Acetaminophen 325 MG TAB PO SCH (09:35)
[2018-08-17] MEDS: Allopurinol 100 MG TAB PO SCH (09:35)
[2018-08-17] MEDS: DULoxetine 60 MG CAP PO SCH (09:36)
[2018-08-17] MEDS: Gabapentin 100 MG CAP PO SCH ×2 (09:36→20:15)
[2018-08-17] MEDS: traMADol HCl 50 MG TAB PO SCH (09:36)
[2018-08-17] MEDS: Potassium Chloride 10 MEQ TAB PO SCH ×2 (09:36→18:00)
[2018-08-17] MEDS: Ferrous Sulfate 325 MG TAB PO SCH ×2 (09:36→20:15)
[2018-08-17] MEDS: Fluticasone Propionate Nasal Spray 16 gm Bottle NASAL SCH (09:37)
--- NOTE | 2018-08-17 10:47 | HP ---
DATE OF ADMISSION: 08/16/2018 PRIMARY CARE PHYSICIAN: Dr. Matt Briggs. CHIEF COMPLAINT: Fever. HISTORY OF PRESENT ILLNESS: The patient is an 82-year-old female with hypertension, obstructive slee p apnea, venous thromboembolism, on anticoagulation, and chronic leg wound, presented to the emergenc y room with above symptoms. The patient is currently followed [facility]. She has wou nd VAC in place. The patient presented to the emergency room with fever, approximately 100.5 degrees earlier today. T he family also noticed increased erythema over the left leg. She also complained of worsening pain i n the left leg. She denies any recent injuries. She follows Dr. Zaragoza for skin graft. She was al so seen by Dr. Baez earlier this month. She completed antibiotics for right knee cellulitis on of this month. She felt nauseous; however, denies any vomiting or abdominal symptoms. No ski n rash except for erythema over the left leg. The family denies any altered mentation, respiratory o r urinary symptoms. PAST MEDICAL HISTORY: 1. Recent right knee cellulitis, completed antibiotics. 2. Chronic wound over the left lateral lower leg, subsequent to incision and drainage of a leg hemat aubrey in May of this year. 3. History of deep venous thrombosis and pulmonary embolism, on anticoagulation. 4. History of non-Hodgkin's lymphoma, status post chemotherapy. 5. Chronic lymphedema. 6. Hypertension. 7. Obstructive sleep apnea, on CPAP. 8. Chronically left atrophic kidney. 9. Chronic kidney disease, stage 3. 10. Chronic diastolic heart failure. 11. Anemia. PAST SURGICAL HISTORY: 1. Incision and drainage of left leg hematoma. 2. Cholecystectomy. 3. Bilateral cataract surgery. 4. Right total knee arthroplasty with subsequent revision after a patellar tendon repair. ALLERGIES: Patient is allergic to LATEX and PENICILLIN. HOME MEDICATIONS: Family to bring the accurate list of home medications. SOCIAL HISTORY: Currently lives at home. She is FULL CODE. She makes her own decision with the hel p of her family. No smoking, alcohol, or drug use. FAMILY HISTORY: Negative for diabetes and heart disease. REVIEW OF SYSTEMS: The following complete review of systems was negative, unless otherwise mentioned in the HPI or below: Constitutional: Weight loss or gain, ability to conduct usual activities. Sk in: Rash, itching. Eyes: Double vision, pain. ENT/Mouth: Nose bleeding, neck stiffness, pain, te nderness. Cardiovascular: Palpitations, dyspnea on exertion, orthopnea. Respiratory: Shortness of breath, wheezing, cough, hemoptysis, fever, or night sweats. Gastrointestinal: Poor appetite, abdo zoraida pain, heartburn, nausea, vomiting, constipation, or diarrhea. Genitourinary: Urgency, frequen cy, dysuria, nocturia. Musculoskeletal: Pain, swelling. Neurologic/Psychiatric: Anxiety, depressi on. Allergy/Immunologic: Skin rash, bleeding tendency. PHYSICAL EXAMINATION: VITAL SIGNS: Temperature 99.5, respirations 24, pulse rate of 90, blood pressure 141/90 with O2 satu ration of 94% on room air. GENERAL: An 82-year-old female in mild distress due to left leg pain. HEENT: Head: Atraumatic, normocephalic. Sclerae are anicteric. Moist mucous membrane, no oral les ion. NECK: Supple, no JVD, no carotid bruit. LUNGS: Clear to auscultation bilaterally. No wheezing, rales, or rhonchi. HEART: S1 and S2 present. A 2/6 systolic murmur over the aortic area. No heaves or pulsation. ABDOMEN: Soft. Bowel sounds present. EXTREMITIES: There is significant erythema and tenderness around the left lateral leg wound. A woun d VAC in place. There is tenderness on palpation as well. Right lower extremity has chronic lymphed shikha without any new skin changes. SKIN: As discussed above. LYMPH NODES: No palpable lymph nodes in the neck. PERIPHERAL VASCULAR: Radial pulses palpable bilaterally. MUSCULOSKELETAL: No joint swelling or tenderness. LABORATORY FINDINGS: CBC showed WBC 18.6 with 13% bandemia. INR 2.6. Chemistries showed sodium 133 , potassium 4.2, chloride 95, bicarbonate 24, BUN 84, creatinine 1.51. Lactic acid 4.6, troponin 0.0 47, BNP 763, albumin 3.1. Urinalysis showed large leukocyte esterase without any bacteria. Influenz a testing negative. Chest x-ray, by my review, was negative for infiltrate. Left lower extremity Do ppler was negative. Telemetry monitoring, by my review, showed sinus rhythm. IMPRESSION: 1. Sepsis with acute organ dysfunction, secondary to left lower extremity cellulitis. 2. Lactic acidosis, secondary to sepsis. 3. Chronic venous thromboembolism, on anticoagulation. 4. Chronic kidney disease, stage 3, with chronically left atrophic kidney. 5. Elevated troponins in the indeterminate range, secondary to sepsis. 6. Elevated BNP. Patient does not have any symptoms suggestive of congestive heart failure exacerba tion. 7. Obstructive sleep apnea, on CPAP. 8. Hypertension. 9. Chronic lymphedema. 10. Degenerative joint disease. 11. Chronic anemia. 12. Left lateral lower leg wound, followed by Dr. Zaragoza. Patient currently has wound VAC. PLAN: The patient will be monitored on the telemetry unit. We will repeat lactic acid in 4 hours. Pain controlled. We will continue vancomycin and cefepime. We will resume home medications once loraine ified. We will get echocardiogram. Resume home CPAP. Consult Infectious Disease as well as Dr. Cornell traylor. Consult physical therapy, occupation therapy. Resume anticoagulation. Monitor INR on a daily basis. Plan of care was discussed with the patient and the family in detail. They stated du mauro.
[2018-08-17] MEDS ORDERED: Vancomycin HCl 1 GM in Premix Bag 1 BAG IVPB SCH (12:00)
[2018-08-17] MEDS ORDERED: Cefepime 1 GM in Sodium Chloride 0.9% 100 ML IVPB SCH (13:00)
[2018-08-17] MEDS ORDERED: Warfarin Sodium 3 MG TAB PO SCH ×2 (17:00)
[2018-08-17] MEDS: cefTRIAXone\\ROCEPHIN 1 GM in Sodium Chloride 0.9% 100 ML IVPB SCH (18:00)
[2018-08-17] MEDS: Sodium Chloride 0.9% 1,000 ML IV SCH (18:01)
[2018-08-17] MEDS: Melatonin 3 MG TAB PO SCH (20:15)
[2018-08-17] MEDS: Estradiol 0.01% Vaginal Cream 42.5 gm Tube VAG SCH (20:16)
--- NOTE | 2018-08-17 21:25 | PDOC.PN ---
- Subjective Encounter Start Date: 08/17/18 Encounter Start Time: 11:30 Patient seen and examined for Sepsis. No new complaints. No overnight events - Objective Resuscitation Status: Resuscitation Status FULL:Full Resuscitation MAR Reviewed: Yes Vital Signs & Weight: Vital Signs (12 hours) Temp Pulse Resp BP Pulse Ox 08/17/18 16:10 97.9 F 80 18 143/65 H 95 08/17/18 12:11 98.1 F 82 18 168/71 H 97 Weight Admit Weight 209 lb Weight 209 lb I&O: 08/16/18 08/17/18 08/18/18 06:59 06:59 06:59 Intake Total 330 Balance 330 Result Diagrams: 08/17/18 05:00 08/17/18 05:00 EKG Reviewed by me: Yes (Tele SR) Phys Exam - Physical Examination Constitutional: NAD Respiratory: no wheezing, no rales Cardiovascular: RRR, no rub Gastrointestinal: soft, non-tender, positive bowel sounds Musculoskeletal: edema present Neurological: moves all 4 limbs Psychiatric: A&O x 3 Dx/Plan - Plan IMPRESSION: 1. Sepsis with acute organ dysfunction, secondary to left lower extremity cellulitis. 2. Lactic acidosis, secondary to sepsis. 3. Chronic venous thromboembolism, on anticoagulation. 4. Left lateral lower leg wound, followed by Dr. Zaragoza. Patient currently has wound VAC. 5. Elevated troponins in the indeterminate range, secondary to sepsis. 6. Elevated BNP. Patient does not have any symptoms suggestive of congestive heart failure exacerbation. 7. Obstructive sleep apnea, on CPAP. 8. Hypertension. 9. Chronic lymphedema. 10. Degenerative joint disease. 11. Chronic anemia. 12. Chronic kidney disease, stage 3, with chronically left atrophic kidney. PLAN: Cont Vancomycin and Ceftriazone Cont wound care Cont current meds as below Consult Cardio per family req AM labs Review of Systems - Review of Systems Cardiovascular: negative: chest pain, palpitations, orthopnea, paroxysmal nocturnal dyspnea, edema, light headedness, other Gastrointestinal: negative: Nausea, Vomiting, Abdominal Pain, Diarrhea, Constipation, Melena, Hematochezia, Other - Medications/Allergies Allergies/Adverse Reactions: Allergies Allergy/AdvReac Type Severity Reaction Status Date / Time Penicillins Allergy Unknown Verified 06/04/18 18:32 nitrofurantoin Allergy Verified 06/04/18 18:33 [From Macrobid] sulfamethoxazole Allergy Verified 06/04/18 18:33 [From Bactrim] trimethoprim [From Bactrim] Allergy Verified 06/15/18 21:18 Medications: Current Medications Acetaminophen (Tylenol) 650 mg PO Q4H PRN PRN Reason: Headache/Fever/Mild Pain (1-3) Acetaminophen (Tylenol) 650 mg PO DAILY [facility] Last Admin: 08/17/18 09:35 Dose: 650 mg Hydrocodone Bitart/Acetaminophen (Farley 5/325) 1 tab PO Q4H PRN PRN Reason: Moderate Pain (4-6) Last Admin: 08/17/18 18:00 Dose: 1 tab Acidophilus (Floranex) 1 tab PO BID [facility] Last Admin: 08/17/18 20:14 Dose: 1 tab Albuterol/Ipratropium (Duoneb) 3 ml NEB Y0PR-AC PRN PRN Reason: SOB &/or Wheezing Allopurinol (Zyloprim) 100 mg PO DAILY [facility] Last Admin: 08/17/18 09:35 Dose: 100 mg Ascorbic Acid (Vitamin C) 1,000 mg PO 0900 [facility] Last Admin: 08/17/18 09:35 Dose: 1,000 mg Calcium Carbonate (Tums) 1,000 mg PO Q4H PRN PRN Reason: Heartburn or Indigestion Docusate Sodium (Colace) 100 mg PO BID [facility] Last Admin: 08/17/18 20:15 Dose: 100 mg Duloxetine HCl (Cymbalta) 60 mg PO DAILY [facility] Last Admin: 08/17/18 09:36 Dose: 60 mg Estradiol (Estrace 0.01% Vaginal Cream) 2 gm VAG 2100 [facility] Last Admin: 08/17/18 20:16 Dose: 2 gm Ferrous Sulfate (Feosol) 325 mg PO BID [facility] Last Admin: 08/17/18 20:15 Dose: 325 mg Fluticasone Propionate (Flonase Nasal [place]) 0 gm NASAL DAILY [facility] Last Admin: 08/17/18 09:37 Dose: 1 spray Furosemide (Lasix) 40 mg PO 0900,1600 [facility] Last Admin: 08/17/18 18:00 Dose: 40 mg Gabapentin (Neurontin) 100 mg PO DAILY [facility] Last Admin: 08/17/18 09:36 Dose: 100 mg Gabapentin (Neurontin) 200 mg PO QPM [facility] Last Admin: 08/17/18 20:15 Dose: 200 mg Hydralazine HCl (Apresoline) 10 mg SLOW IVP Q4H PRN PRN Reason: SBP Greater Than 180 Sodium Chloride (Normal Saline 0.9%) 1,000 mls @ 30 mls/hr IV .Q24H [facility] Last Admin: 08/17/18 18:01 Dose: Not Given Ceftriaxone Sodium 1 gm/ (Sodium Chloride) 100 mls @ 200 mls/hr IVPB Q24HR [facility] Last Admin: 08/17/18 18:00 Dose: 100 mls Magnesium Oxide (Magnesium Oxide) 400 mg PO BID [facility] Last Admin: 08/17/18 20:15 Dose: 400 mg Melatonin (Melatonin) 6 mg PO HS [facility] Last Admin: 08/17/18 20:15 Dose: 6 mg Miscellaneous Medication (Pharmacy To Dose) 1 each PO PRN PRN PRN Reason: Pharmacy to dose Miscellaneous Medication (Pharmacy To Dose) 1 each IVPB PRN PRN PRN Reason: Pharmacy to dose Multivitamins (Theragran) 1 tab PO DAILY [facility] Last Admin: 08/17/18 09:35 Dose: 1 tab Nitroglycerin (Nitrostat) 0.4 mg PO Q5MIN PRN PRN Reason: Chest Pain Olmesartan (Benicar) 10 mg PO BID PRN PRN Reason: Hypertension Last Admin: 08/17/18 09:34 Dose: 10 mg Ondansetron HCl (Zofran Odt) 4 mg PO Q6H PRN PRN Reason: Nausea/Vomiting Ondansetron HCl (Zofran) 4 mg IVP Q6H PRN PRN Reason: Nausea/Vomiting Pantoprazole Sodium (Protonix) 40 mg PO DAILY [facility] Last Admin: 08/17/18 09:36 Dose: 40 mg Potassium Chloride (Klor-Con 10) 10 meq PO BID-[facility] Last Admin: 08/17/18 18:00 Dose: 10 meq Senna/Docusate Sodium (Senokot S) 2 tab PO BID PRN PRN Reason: Constipation Sodium Chloride (Flush - Normal Saline) 10 ml IVF PRN PRN PRN Reason: Saline Flush Tramadol HCl (Ultram) 50 mg PO Q4H PRN PRN Reason: Moderate Pain (4-6) Last Admin: 08/16/18 22:04 Dose: 50 mg Tramadol HCl (Ultram) 50 mg PO DAILY [facility] Last Admin: 08/17/18 09:36 Dose: 50 mg Warfarin Sodium (Coumadin) 3 mg PO MoWe@1700 [facility] Warfarin Sodium (Coumadin) 6 mg PO SuTuThFrSa@1700 [facility] Zinc Sulfate (Zinc Sulfate) 220 mg PO 0900 [facility] Last Admin: 08/17/18 09:35 Dose: 220 mg
[2018-08-17] MEDS: Acetaminophen 325 MG TAB PO PRN (22:50)
[2018-08-17] MEDS: traMADol HCl 50 MG TAB PO PRN (22:50)
--- NOTE | 2018-08-17 23:30 | CON ---
DATE OF CONSULTATION: 08/17/2018 REASON FOR CONSULTATION: Cellulitis, left lower extremity. HISTORY OF PRESENT ILLNESS: An 82-year-old whom I had seen in May this year with a history of non -Hodgkin's lymphoma in remission for many years, prior episodes of deep vein thrombosis, degenerative arthritis with right knee replacement in 2014, and a hematoma in the left leg, which required surgic al debridement by Dr. Baez recently. Patient then had chronic limitation of range of motion of th e right knee and had an arthrocentesis in May, which showed coagulase-negative Staphylococcus. Th e patient was continued on vancomycin through PICC line and then I believe she had been on doxy and r ifampin and now is admitted with erythema in the left leg, which started 2 or 3 days before admission . She had been seeing Dr. Zaragoza for wound management. No headaches, no shortness of breath, or ch est pain. No abdominal pain, diarrhea. She is voiding spontaneously and has a peripheral IV access, has a negative pressure dressing in the left leg. PAST MEDICAL HISTORY: Non-Hodgkin's lymphoma in remission, deep vein thrombosis, pulmonary embolism, FAUSTINO on CPAP, renal insufficiency stage 3, congestive heart failure diastolic, TKR infection with coa gulase negative Staph treated with vancomycin, chronic Coumadin intake with hematoma left leg, which required surgical debridement. PAST SURGICAL HISTORY: Also includes cholecystectomy, patellar tendon repair following TKR. ALLERGIES: PENICILLIN AND LATEX. CURRENT MEDICATIONS: Tylenol, [place], Floranex, DuoNeb, Zyloprim, vitamin C, TUMS, cefepime, Cymbalta , Estrace, furosemide, Neurontin, magnesium, melatonin, Nitrostat, Benicar, Zofran, Protonix, Klor-Co n, tramadol, vancomycin. SOCIAL HISTORY: Lives at home make some decision. FAMILY HISTORY: Noncontributory. PHYSICAL EXAMINATION: VITAL SIGNS: T-max 98.6, blood pressure 160/71, pulse 82, respirations 18, O2 sat 97%. SKIN: Shows area of erythema, circumferential distribution of left leg and surrounding the negative pressure dressing for the wound left leg. There is quite a bit of tenderness around the area. There is no blistering, no abscess. Patient has a peripheral IV access. HEENT: Ocular movements conjugate. NECK: No jugular vein distention. LUNGS: Symmetric clear breath sounds. HEART: S1, S2, regular rate. No S3, S4. ABDOMEN: Soft, not distended or tender. No ascites. No bladder distention. Patient has limited mo tion because of her deconditioning and also the wound and swelling in lower extremities. She does bearden ve evidence of lymphedema in lower extremities, which is chronic. Pulses are 1+ in dorsalis pedis. She is able to move extremities, but with limitation. NEUROLOGIC: Cognitive function appears to be intact. LABORATORY DATA: White cell count is down from 18,000 to 9500, hemoglobin 9.7, platelets 269, 87% ne utrophils. INR 3.3. Sodium 135, creatinine 1.25, which is better from admission. Liver profile nor mal. BNP is 762 and albumin 2.6. Urinalysis was essentially normal. Microbiology with Gram-negativ e felix and urine culture. Two sets of blood cultures, no growth. We have a vascular ultrasound with no evidence of deep vein thrombosis. Chest x-ray with no acute process. ASSESSMENT: Lymphoma in remission, prior deep venous thrombosis on Coumadin, hematoma left leg with surgical debridement, and now cellulitis, left leg. DISCUSSION: The majority of cases of cellulitis of lower extremities is secondary to beta hemolytic Streptococci. Other organisms including Gram-negative rods are sometimes seen as well. We will swit ch her to Rocephin alone, discontinue current antimicrobials. If there is continuing response, then transitioned to oral Keflex for discharge planning, then Pen-VK prophylaxis. Most patients with a re ported to PENICILLIN allergy, but do not have true PENICILLIN allergy and I would review this with gill jacobo if we can give a test dose of penicillin, before she was discharged.
[2018-08-18 05:28] LABS: Prothrombin Time 31.4 SEC (12.0-14.7)
[2018-08-18 05:34] LABS: #Eosinphils 0.2 thou/uL (0.0-0.7); #Monocytes 0.4 thou/uL (0.11-0.59); #Neutrophils 5.4 thou/uL (1.40-6.50); %Basophils 0.6 % (0.0-1.0); %Eosinophils 2.2 % (0.0-10.0); %Lymphocytes 13.6 % (21.0-51.0); %Monocytes 6.2 % (0.0-10.0); %Neutrophils 77.4 % (42.0-75.0); Hemoglobin 9.6 g/dL (12.0-16.0); Mean Corpuscular HGB CONC 30.1 g/dL (32.0-36.0); Mean Corpuscular Hemoglobin 29.1 pg (27.0-31.0); Mean Corpuscular Volume 96.6 fL (78.0-98.0); Mean Platelet Volume 8.4 fL (7.4-10.4); Platelet Count 302 thou/uL (130-400); RBC Distribution Width 13.6 % (11.5-14.5)
[2018-08-18 05:52] LABS: Anion Gap 11 mmol/L (10-20); BUN (Urea Nitrogen) 72 mg/dL (9.8-20.1); Calc. Creatinine Clearance 57 mL/min (70-130); Calcium 9.6 mg/dL (7.8-10.44); Carbon Dioxide 31 mmol/L (23-31); Chloride 98 mmol/L (98-107); Estimated GFR-MDRD 46; Glucose 96 mg/dL (83-110); Iron 19 ug/dL (50-170); Iron Binding Capacity, Total 175 mcg/dL (265-497); Potassium 3.8 mmol/L (3.5-5.1); Sodium 136 mmol/L (136-145)
[2018-08-18] MEDS: Multivit, Therapeutic 1 TAB PO SCH (09:34)
[2018-08-18] MEDS: Olmesartan 5 MG TAB PO PRN ×2 (09:35→21:26)
[2018-08-18] MEDS: Magnesium Oxide 400 MG TAB PO SCH ×2 (09:35→21:21)
[2018-08-18] MEDS: Ferrous Sulfate 325 MG TAB PO SCH ×2 (09:35→21:21)
[2018-08-18] MEDS: Potassium Chloride 10 MEQ TAB PO SCH ×2 (09:35→19:24)
[2018-08-18] MEDS: DULoxetine 60 MG CAP PO SCH (09:35)
[2018-08-18] MEDS: Zinc Sulfate 220 MG CAP PO SCH (09:35)
[2018-08-18] MEDS: traMADol HCl 50 MG TAB PO SCH (09:36)
[2018-08-18] MEDS: Fluticasone Propionate Nasal Spray 16 gm Bottle NASAL SCH (09:37)
[2018-08-18] MEDS: Allopurinol 100 MG TAB PO SCH (09:37)
[2018-08-18] MEDS: Acetaminophen 325 MG TAB PO SCH (09:37)
[2018-08-18] MEDS: Ascorbic Acid 500 mg Chewable Tablet PO SCH (09:37)
[2018-08-18] MEDS: Gabapentin 100 MG CAP PO SCH ×2 (09:38→21:21)
[2018-08-18] MEDS: Docusate 100 MG CAP PO SCH ×2 (09:43→21:20)
[2018-08-18] MEDS: Lactinex Tablet PO SCH ×2 (09:43→21:21)
[2018-08-18] MEDS: Furosemide 40 MG TAB PO SCH (10:41)
[2018-08-18] MEDS: Sodium Chloride 0.9% 1,000 ML IV SCH (10:41)
[2018-08-18] MEDS ORDERED: Metolazone 5 MG TAB PO SCH (12:00)
[2018-08-18] MEDS ORDERED: Potassium Chloride 20 MEQ TAB PO SCH (12:00)
[2018-08-18] MEDS: traMADol HCl 50 MG TAB PO PRN ×3 (12:08→23:43)
[2018-08-18] MEDS: Acetaminophen 325 MG TAB PO PRN ×3 (12:09→23:41)
--- NOTE | 2018-08-18 13:37 | CON ---
DATE OF CONSULTATION: 08/18/2018 REASON FOR CONSULTATION: Diastolic congestive heart failure. HISTORY OF PRESENT ILLNESS: Ms. Trinidad is a very pleasant 82-year-old woman. The patient was admit mario predominantly with cellulitis. She has been given intravenous antibiotics and also has had recen t skin graft. I am consulted for her diastolic heart failure. The patient does have a long history of diastolic heart failure. She was in the hospital about a yea r ago and actually had about 100-pound diuresis for severe diastolic heart failure. She has had prob gerardo with fluid retention off and on since then. She has been on various doses of furosemide and othe r diuretics to try to keep the fluid levels low, balancing this out with her renal insufficiency, whi ch sometimes can get worse with diuresis. The patient is doing better today. She is not having chest pain or pressure. PAST MEDICAL HISTORY: 1. History of severe diastolic heart failure. 2. Obesity. 3. Hypertension. 4. Renal insufficiency. SOCIAL HISTORY: She is cared for by her daughter, who does a tremendous job trying to help her laron ce out her multiple problems. CURRENT MEDICATIONS: She was on oral furosemide and oral potassium and oral iron. ALLERGIES: PENICILLIN, NITROFURANTOIN, SULFAMETHOXAZOLE, and TRIMETHOPRIM. REVIEW OF SYSTEMS: Constitutional: Positive for weakness and fatigue. Vision: No changes. Hearin g: No changes. Pulmonary: Positive shortness of breath, but she is doing well now from that standp oint, negative for chest pain. Gastrointestinal: No nausea, vomiting, diarrhea. Skin: No rashes. Neurologic: No unilateral weakness or numbness. Psychiatric: No unusual depression or anxiety. PHYSICAL EXAMINATION: GENERAL: On examination, this is a pleasant 82-year-old woman, 5 feet 6 inches tall, 209 pounds. EYES: Sclerae nonicteric. MOUTH: Mucous membranes moist. NECK: Supple, no lymphadenopathy. LUNGS: Clear. No wheezing, rales, or rhonchi. CARDIAC: Normal S1 and normal S2. There is no murmur, rub, or gallop. ABDOMEN: Soft, nontender. She is obese. EXTREMITIES: No clubbing or cyanosis. There is moderate edema. The patient also does have some naren lulitis in left leg. PERTINENT LABORATORY DATA: Her BNP 762.8. She has had a BNP as high as 1268. The potassium level most recently 3.8. The iron level was low and the percent saturation was 11 and TIBC 175, but the ferritin level is 320.38. Hemoglobin is 9.6. EKG reveals sinus rhythm. ASSESSMENT: 1. Cellulitis. 2. Diastolic heart failure with a problem with volume overload. 3. Renal failure, currently stage 3 with an estimated GFR of 46. The renal failure has actually imp roved since admission. 4. Anemia. It is unclear whether she has true iron deficiency. Her iron levels are low, but the fe rritin level is high. PLAN: 1. We will give her intravenous Lasix here with one dose of metolazone. 2. Reassess tomorrow. 3. We will not give intravenous iron currently.
[2018-08-18] MEDS: Furosemide 40 MG/4 ML VIAL SLOW IVP SCH (16:09)
[2018-08-18] MEDS ORDERED: Warfarin Sodium 3 MG TAB PO SCH (17:00)
[2018-08-18] MEDS: cefTRIAXone\\ROCEPHIN 1 GM in Sodium Chloride 0.9% 100 ML IVPB SCH (19:24)
[2018-08-18] MEDS: Estradiol 0.01% Vaginal Cream 42.5 gm Tube VAG SCH (21:20)
[2018-08-18] MEDS: Melatonin 3 MG TAB PO SCH (21:21)
[2018-08-18] MEDS: HYDROcodone/Acetaminophen 5/325 mg Tablet PO PRN (21:26)
--- NOTE | 2018-08-18 22:27 | PDOC.PN ---
- Subjective Encounter Start Date: 08/18/18 Encounter Start Time: 12:00 Patient seen and examined for Sepsis. No fever. Pain controlled. No new complaints. No overnight events - Objective Resuscitation Status: Resuscitation Status FULL:Full Resuscitation MAR Reviewed: Yes Vital Signs & Weight: Vital Signs (12 hours) Temp Pulse Pulse Resp BP BP Pulse Ox 08/18/18 21:00 98.2 F 86 20 144/65 H 97 08/18/18 16:08 98.2 F 87 18 177/77 H 96 08/18/18 13:55 86 143/66 H Pulse Ox 08/18/18 21:00 08/18/18 16:08 08/18/18 13:55 94 L Weight Admit Weight 209 lb Weight 209 lb 1.6 oz I&O: 08/17/18 08/18/18 08/19/18 06:59 06:59 06:59 Intake Total 330 Output Total 15 Balance 330 -15 Result Diagrams: 08/18/18 04:47 08/18/18 04:47 Phys Exam - Physical Examination Constitutional: NAD Respiratory: no wheezing, no rhonchi Cardiovascular: RRR, no rub Gastrointestinal: soft, non-tender, positive bowel sounds Musculoskeletal: edema present Neurological: non-focal Dx/Plan - Plan DVT proph w/SCDs IMPRESSION: 1. Sepsis with acute organ dysfunction, secondary to left lower extremity cellulitis. 2. Lactic acidosis, secondary to sepsis. 3. Chronic venous thromboembolism, on anticoagulation. 4. Left lateral lower leg wound, followed by Dr. Zaragoza. Patient currently has wound VAC. 5. Elevated troponins in the indeterminate range, secondary to sepsis. 6. Acute on chronic diastolic CHF exacerbation. ACC stage C 7. Obstructive sleep apnea, on CPAP. 8. Hypertension. 9. Chronic lymphedema. 10. Degenerative joint disease. 11. Chronic anemia. 12. Chronic kidney disease, stage 3, with chronically left atrophic kidney. 13. Proteus bacteriuria PLAN: Cont Ceftriazone Cont wound care Cont current meds as below Echo reviewed INR/BMP in AM Metolazone started IV diuretics Review of Systems - Review of Systems Respiratory: negative: Cough, Dry, Shortness of Breath, Hemoptysis, SOB with Excertion, Pleuritic Pain, Sputum, Wheezing Cardiovascular: negative: chest pain, palpitations, orthopnea, paroxysmal nocturnal dyspnea, edema, light headedness, other - Medications/Allergies Allergies/Adverse Reactions: Allergies Allergy/AdvReac Type Severity Reaction Status Date / Time Penicillins Allergy Unknown Verified 06/04/18 18:32 nitrofurantoin Allergy Verified 06/04/18 18:33 [From Macrobid] sulfamethoxazole Allergy Verified 06/04/18 18:33 [From Bactrim] trimethoprim [From Bactrim] Allergy Verified 06/15/18 21:18 Medications: Current Medications Acetaminophen (Tylenol) 650 mg PO Q4H PRN PRN Reason: Headache/Fever/Mild Pain (1-3) Last Admin: 08/18/18 19:23 Dose: 650 mg Acetaminophen (Tylenol) 650 mg PO DAILY [facility] Last Admin: 08/18/18 09:37 Dose: 650 mg Hydrocodone Bitart/Acetaminophen ([place] 5/325) 1 tab PO Q4H PRN PRN Reason: Moderate Pain (4-6) Last Admin: 08/18/18 21:26 Dose: 1 tab Acidophilus (Floranex) 1 tab PO BID [facility] Last Admin: 08/18/18 21:21 Dose: 1 tab Albuterol/Ipratropium (Duoneb) 3 ml NEB [id number] PRN PRN Reason: SOB &/or Wheezing Allopurinol (Zyloprim) 100 mg PO DAILY [facility] Last Admin: 08/18/18 09:37 Dose: 100 mg Ascorbic Acid (Vitamin C) 1,000 mg PO 0900 [facility] Last Admin: 08/18/18 09:37 Dose: 1,000 mg Calcium Carbonate (Tums) 1,000 mg PO Q4H PRN PRN Reason: Heartburn or Indigestion Docusate Sodium (Colace) 100 mg PO BID [facility] Last Admin: 08/18/18 21:20 Dose: 100 mg Duloxetine HCl (Cymbalta) 60 mg PO DAILY [facility] Last Admin: 08/18/18 09:35 Dose: 60 mg Estradiol (Estrace 0.01% Vaginal Cream) 2 gm VAG 2100 [facility] Last Admin: 08/18/18 21:20 Dose: 2 gm Ferrous Sulfate (Feosol) 325 mg PO BID [facility] Last Admin: 08/18/18 21:21 Dose: 325 mg Fluticasone Propionate (Flonase Nasal [place]) 0 gm NASAL DAILY [facility] Last Admin: 08/18/18 09:37 Dose: 1 spray Furosemide (Lasix) 40 mg SLOW IVP 0600,1400 [facility] Last Admin: 08/18/18 16:09 Dose: 40 mg Gabapentin (Neurontin) 100 mg PO DAILY [facility] Last Admin: 08/18/18 09:38 Dose: 100 mg Gabapentin (Neurontin) 200 mg PO QPM [facility] Last Admin: 08/18/18 21:21 Dose: 200 mg Hydralazine HCl (Apresoline) 10 mg SLOW IVP Q4H PRN PRN Reason: SBP Greater Than 180 Ceftriaxone Sodium 1 gm/ (Sodium Chloride) 100 mls @ 200 mls/hr IVPB Q24HR [facility] Last Admin: 08/18/18 19:24 Dose: 100 mls Sodium Chloride (Normal Saline 0.9%) 1,000 mls @ 20 mls/hr IV .Q24H [facility] Last Admin: 08/18/18 10:41 Dose: 1,000 mls Magnesium Oxide (Magnesium Oxide) 400 mg PO BID [facility] Last Admin: 08/18/18 21:21 Dose: 400 mg Melatonin (Melatonin) 6 mg PO HS [facility] Last Admin: 08/18/18 21:21 Dose: 6 mg Miscellaneous Medication (Pharmacy To Dose) 1 each PO PRN PRN PRN Reason: Pharmacy to dose Multivitamins (Theragran) 1 tab PO DAILY [facility] Last Admin: 08/18/18 09:34 Dose: 1 tab Nitroglycerin (Nitrostat) 0.4 mg PO Q5MIN PRN PRN Reason: Chest Pain Olmesartan (Benicar) 10 mg PO BID PRN PRN Reason: Hypertension Last Admin: 08/18/18 21:26 Dose: 10 mg Ondansetron HCl (Zofran Odt) 4 mg PO Q6H PRN PRN Reason: Nausea/Vomiting Ondansetron HCl (Zofran) 4 mg IVP Q6H PRN PRN Reason: Nausea/Vomiting Pantoprazole Sodium (Protonix) 40 mg PO DAILY [facility] Last Admin: 08/18/18 09:37 Dose: 40 mg Potassium Chloride (Klor-Con 10) 10 meq PO BID[facility] Last Admin: 08/18/18 19:24 Dose: 10 meq Senna/Docusate Sodium (Senokot S) 2 tab PO BID PRN PRN Reason: Constipation Sodium Chloride (Flush - Normal Saline) 10 ml IVF PRN PRN PRN Reason: Saline Flush Tramadol HCl (Ultram) 50 mg PO Q4H PRN PRN Reason: Moderate Pain (4-6) Last Admin: 08/18/18 19:23 Dose: 50 mg Tramadol HCl (Ultram) 50 mg PO DAILY [facility] Last Admin: 08/18/18 09:36 Dose: 50 mg Warfarin Sodium (Coumadin) 3 mg PO MoWe@1700 [facility] Warfarin Sodium (Coumadin) 6 mg PO SuTuThFrSa@1700 [facility] Zinc Sulfate (Zinc Sulfate) 220 mg PO 0900 [facility] Last Admin: 08/18/18 09:35 Dose: 220 mg
[2018-08-19 05:28] LABS: Anion Gap 11 mmol/L (10-20); BUN (Urea Nitrogen) 73 mg/dL (9.8-20.1); Calc. Creatinine Clearance 49 mL/min (70-130); Carbon Dioxide 37 mmol/L (23-31); Chloride 96 mmol/L (98-107); Estimated GFR-MDRD 41; Glucose 101 mg/dL (83-110); Potassium 4.1 mmol/L (3.5-5.1); Sodium 140 mmol/L (136-145)
[2018-08-19 05:30] LABS: INR-International Normal Ratio 2.3; Prothrombin Time 25.6 SEC (12.0-14.7)
[2018-08-19] MEDS: Furosemide 40 MG/4 ML VIAL SLOW IVP SCH ×2 (05:34→14:45)
[2018-08-19] MEDS: Potassium Chloride 10 MEQ TAB PO SCH ×2 (08:44→17:16)
[2018-08-19] MEDS: Docusate 100 MG CAP PO SCH ×2 (08:44→20:33)
[2018-08-19] MEDS: Acetaminophen 325 MG TAB PO SCH (08:44)
[2018-08-19] MEDS: Zinc Sulfate 220 MG CAP PO SCH (08:44)
[2018-08-19] MEDS: Ascorbic Acid 500 mg Chewable Tablet PO SCH (08:45)
[2018-08-19] MEDS: Lactinex Tablet PO SCH ×2 (08:45→20:34)
[2018-08-19] MEDS: Allopurinol 100 MG TAB PO SCH (08:45)
[2018-08-19] MEDS: Magnesium Oxide 400 MG TAB PO SCH ×2 (08:45→20:34)
[2018-08-19] MEDS: Ferrous Sulfate 325 MG TAB PO SCH ×2 (08:45→20:33)
[2018-08-19] MEDS: Gabapentin 100 MG CAP PO SCH ×2 (08:45→20:33)
[2018-08-19] MEDS: traMADol HCl 50 MG TAB PO SCH (08:45)
[2018-08-19] MEDS: Multivit, Therapeutic 1 TAB PO SCH (08:46)
[2018-08-19] MEDS: Fluticasone Propionate Nasal Spray 16 gm Bottle NASAL SCH (08:46)
[2018-08-19] MEDS: DULoxetine 60 MG CAP PO SCH (08:52)
[2018-08-19] MEDS ORDERED: Metolazone 5 MG TAB PO SCH ×2 (10:00→11:15)
[2018-08-19] MEDS: Sodium Chloride 0.9% 1,000 ML IV SCH ×2 (10:02→20:34)
--- NOTE | 2018-08-19 10:23 | PRG ---
DATE OF SERVICE: 08/19/2018 HISTORY: Ms. Trinidad is doing well, she has diuresed very well. She has a diaper on so it is diffic ult to say accurate I&O, but apparently she had a very good diuresis. She is breathing well, no ches t pain. PHYSICAL EXAMINATION: VITAL SIGNS: Blood pressure 138/62, pulse 78 regular. LUNGS: Clear. CARDIAC: Normal S1 and S2. ABDOMEN: Soft, nontender. EXTREMITIES: Still moderate to severe edema. ASSESSMENT: 1. Congestive heart failure, diastolic, still volume overloaded. 2. CO2 is 37, developing a metabolic alkalosis from the diuresis. 3. Creatinine stable at 1.26. PLAN: 1. Continue with intravenous diuretics and metolazone, today will give 1 dose of Diamox. 2. Okay with me to move to the medical floor.
[2018-08-19] MEDS ORDERED: Potassium Chloride 20 MEQ TAB PO SCH (12:00)
[2018-08-19 12:12] VITALS: BMI 31.9
[2018-08-19] MEDS: traMADol HCl 50 MG TAB PO PRN (14:45)
[2018-08-19] MEDS: Acetaminophen 325 MG TAB PO PRN (14:45)
[2018-08-19] MEDS ORDERED: Warfarin Sodium 3 MG TAB PO SCH (17:00)
[2018-08-19] MEDS: cefTRIAXone\\ROCEPHIN 1 GM in Sodium Chloride 0.9% 100 ML IVPB SCH (17:25)
[2018-08-19] MEDS ORDERED: acetaZOLAMIDE Sodium 500 MG in Sodium Chloride 0.9% 50 ML IVPB SCH (20:00)
[2018-08-19] MEDS: Olmesartan 5 MG TAB PO PRN (20:34)
[2018-08-19] MEDS: Estradiol 0.01% Vaginal Cream 42.5 gm Tube VAG SCH (20:35)
--- NOTE | 2018-08-19 20:52 | PDOC.PN ---
- Subjective Encounter Start Date: 08/19/18 Encounter Start Time: 10:30 Patient seen and examined for Sepsis/CHF. No new complaints. No overnight events - Objective Resuscitation Status: Resuscitation Status FULL:Full Resuscitation MAR Reviewed: Yes Vital Signs & Weight: Vital Signs (12 hours) Temp Pulse Pulse Pulse Resp BP BP 08/19/18 20:28 98.3 F 84 20 08/19/18 16:30 98.9 F 94 18 08/19/18 12:15 97.8 F 18 L 18 08/19/18 10:48 88 90 160/78 H 161/80 H 08/19/18 09:30 BP Pulse Ox Pulse Ox Pulse Ox 08/19/18 20:28 167/86 H 96 08/19/18 16:30 178/80 H 98 08/19/18 12:15 97 08/19/18 10:48 96 95 08/19/18 09:30 96 Weight Admit Weight 209 lb Weight 197 lb 12.8 oz I&O: 08/18/18 08/19/18 08/20/18 06:59 06:59 06:59 Intake Total 614 Output Total 15 Balance 599 Result Diagrams: 08/18/18 04:47 08/19/18 04:37 EKG Reviewed by me: Yes (Tele SR) Phys Exam - Physical Examination Constitutional: NAD Respiratory: no wheezing, no rhonchi Few bibasilar rales Cardiovascular: RRR, no rub Gastrointestinal: soft, non-tender, positive bowel sounds Musculoskeletal: edema present Neurological: moves all 4 limbs Dx/Plan - Plan 1. Sepsis with acute organ dysfunction, secondary to left lower extremity cellulitis. 2. Lactic acidosis, secondary to sepsis. 3. Chronic venous thromboembolism, on anticoagulation. 4. Left lateral lower leg wound, followed by Dr. Zaragoza. Patient currently has wound VAC. 5. Elevated troponins in the indeterminate range, secondary to sepsis. 6. Acute on chronic diastolic CHF exacerbation. ACC stage C 7. Obstructive sleep apnea, on CPAP. 8. Hypertension. 9. Chronic lymphedema. 10. Degenerative joint disease. 11. Chronic anemia. 12. Chronic kidney disease, stage 3, with chronically left atrophic kidney. 13. Proteus bacteriuria PLAN: Cont Ceftriaxone with wound care Cont current meds as below CBC/INR/BMP in AM Cont IV diuretics Review of Systems - Review of Systems Respiratory: negative: Cough, Dry, Shortness of Breath, Hemoptysis, SOB with Excertion, Pleuritic Pain, Sputum, Wheezing Cardiovascular: negative: chest pain, palpitations, orthopnea, paroxysmal nocturnal dyspnea, edema, light headedness, other - Medications/Allergies Allergies/Adverse Reactions: Allergies Allergy/AdvReac Type Severity Reaction Status Date / Time Penicillins Allergy Unknown Verified 06/04/18 18:32 nitrofurantoin Allergy Verified 06/04/18 18:33 [From Macrobid] sulfamethoxazole Allergy Verified 06/04/18 18:33 [From Bactrim] trimethoprim [From Bactrim] Allergy Verified 06/15/18 21:18 Medications: Current Medications Acetaminophen (Tylenol) 650 mg PO Q4H PRN PRN Reason: Headache/Fever/Mild Pain (1-3) Last Admin: 08/19/18 14:45 Dose: 650 mg Acetaminophen (Tylenol) 650 mg PO DAILY [facility] Last Admin: 08/19/18 08:44 Dose: 650 mg Hydrocodone Bitart/Acetaminophen ([place] 5/325) 1 tab PO Q4H PRN PRN Reason: Moderate Pain (4-6) Last Admin: 08/18/18 21:26 Dose: 1 tab Acidophilus (Floranex) 1 tab PO BID [facility] Last Admin: 08/19/18 20:34 Dose: 1 tab Albuterol/Ipratropium (Duoneb) 3 ml NEB [id number] PRN PRN Reason: SOB &/or Wheezing Allopurinol (Zyloprim) 100 mg PO DAILY [facility] Last Admin: 08/19/18 08:45 Dose: 100 mg Ascorbic Acid (Vitamin C) 1,000 mg PO 0900 [facility] Last Admin: 08/19/18 08:45 Dose: 1,000 mg Calcium Carbonate (Tums) 1,000 mg PO Q4H PRN PRN Reason: Heartburn or Indigestion Docusate Sodium (Colace) 100 mg PO BID [facility] Last Admin: 08/19/18 20:33 Dose: 100 mg Duloxetine HCl (Cymbalta) 60 mg PO DAILY [facility] Last Admin: 08/19/18 08:52 Dose: 60 mg Estradiol (Estrace 0.01% Vaginal Cream) 2 gm VAG 2100 [facility] Last Admin: 08/19/18 20:35 Dose: 2 gm Ferrous Sulfate (Feosol) 325 mg PO BID [facility] Last Admin: 08/19/18 20:33 Dose: 325 mg Fluticasone Propionate (Flonase Nasal [place]) 0 gm NASAL DAILY [facility] Last Admin: 08/19/18 08:46 Dose: 1 spray Furosemide (Lasix) 40 mg SLOW IVP 0600,1400 [facility] Last Admin: 08/19/18 14:45 Dose: 40 mg Gabapentin (Neurontin) 100 mg PO DAILY [facility] Last Admin: 08/19/18 08:45 Dose: 100 mg Gabapentin (Neurontin) 200 mg PO QPM [facility] Last Admin: 08/19/18 20:33 Dose: 200 mg Hydralazine HCl (Apresoline) 10 mg SLOW IVP Q4H PRN PRN Reason: SBP Greater Than 180 Ceftriaxone Sodium 1 gm/ (Sodium Chloride) 100 mls @ 200 mls/hr IVPB Q24HR [facility] Last Admin: 08/19/18 17:25 Dose: 100 mls Sodium Chloride (Normal Saline 0.9%) 1,000 mls @ 20 mls/hr IV .Q24H [facility] Last Admin: 08/19/18 20:34 Dose: 1,000 mls Acetazolamide Sodium 500 mg/ (Sodium Chloride) 50 mls @ 100 mls/hr IVPB 2000 [facility] Stop: 08/20/18 04:00 Last Admin: 08/19/18 20:33 Dose: 50 mls Magnesium Oxide (Magnesium Oxide) 400 mg PO BID [facility] Last Admin: 08/19/18 20:34 Dose: 400 mg Melatonin (Melatonin) 6 mg PO HS [facility] Last Admin: 08/18/18 21:21 Dose: 6 mg Miscellaneous Medication (Pharmacy To Dose) 1 each PO PRN PRN PRN Reason: Pharmacy to dose Multivitamins (Theragran) 1 tab PO DAILY [facility] Last Admin: 08/19/18 08:46 Dose: 1 tab Nitroglycerin (Nitrostat) 0.4 mg PO Q5MIN PRN PRN Reason: Chest Pain Olmesartan (Benicar) 10 mg PO BID PRN PRN Reason: Hypertension Last Admin: 08/19/18 20:34 Dose: 10 mg Ondansetron HCl (Zofran Odt) 4 mg PO Q6H PRN PRN Reason: Nausea/Vomiting Ondansetron HCl (Zofran) 4 mg IVP Q6H PRN PRN Reason: Nausea/Vomiting Pantoprazole Sodium (Protonix) 40 mg PO DAILY [facility] Last Admin: 08/19/18 08:45 Dose: 40 mg Potassium Chloride (Klor-Con 10) 10 meq PO BID[facility] Last Admin: 08/19/18 17:16 Dose: 10 meq Senna/Docusate Sodium (Senokot S) 2 tab PO BID PRN PRN Reason: Constipation Sodium Chloride (Flush - Normal Saline) 10 ml IVF PRN PRN PRN Reason: Saline Flush Last Admin: 08/19/18 05:34 Dose: 10 ml Tramadol HCl (Ultram) 50 mg PO Q4H PRN PRN Reason: Moderate Pain (4-6) Last Admin: 08/19/18 14:45 Dose: 50 mg Tramadol HCl (Ultram) 50 mg PO DAILY [facility] Last Admin: 08/19/18 08:45 Dose: 50 mg Warfarin Sodium (Coumadin) 3 mg PO MoWe@1700 [facility] Last Admin: 08/19/18 17:25 Dose: 3 mg Warfarin Sodium (Coumadin) 6 mg PO SuTuThFrSa@1700 [facility] Zinc Sulfate (Zinc Sulfate) 220 mg PO 0900 [facility] Last Admin: 08/19/18 08:44 Dose: 220 mg
[2018-08-19] MEDS: HYDROcodone/Acetaminophen 5/325 mg Tablet PO PRN (21:42)
[2018-08-19] MEDS: Melatonin 3 MG TAB PO SCH (21:43)
--- NOTE | 2018-08-19 22:51 | PRG ---
DATE OF SERVICE: 08/19/2018 SUBJECTIVE: Ms. Trinidad is feeling better. Both lower extremities are now with encased in compressi ve dressings. No respiratory symptoms. No abdominal pain or diarrhea. OBJECTIVE: VITAL SIGNS: Temperature has been normal, T-max 98.9. Other vital signs are not remarkable. LUNGS: Clear. HEART: S1, S2, regular rate. ABDOMEN: Soft. LABORATORY DATA: Microbiology not remarkable. White cell count 7.0, hemoglobin 9.6, platelets 202. ASSESSMENT AND PLAN: Lymphoma in remission, prior deep venous thrombosis; now hematoma, left leg, veloz rgical debridement and cellulitis, superimposed. The patient to continue Rocephin, discharged on Kef tracie. After Keflex completed, then patient should be back on doxycycline suppressive therapy to preve nt recrudescence of right knee infection. I would avoid Pen-Vee K because of the two different antim icrobials at the same time that increased risk of complications. I emphasized compression dressing f or the left lower extremity.
[2018-08-20] MEDS: Acetaminophen 325 MG TAB PO PRN (02:23)
[2018-08-20] MEDS: traMADol HCl 50 MG TAB PO PRN (02:23)
[2018-08-20 05:03] LABS: INR-International Normal Ratio 1.8; Prothrombin Time 20.6 SEC (12.0-14.7)
[2018-08-20 05:07] LABS: #Eosinphils 0.2 thou/uL (0.0-0.7); #Lymphocytes 1.2 thou/uL (1.20-3.40); #Monocytes 0.6 thou/uL (0.11-0.59); #Neutrophils 5.6 thou/uL (1.40-6.50); %Eosinophils 2.2 % (0.0-10.0); %Monocytes 7.6 % (0.0-10.0); %Neutrophils 74.2 % (42.0-75.0); Hemoglobin 11.3 g/dL (12.0-16.0); Mean Corpuscular HGB CONC 31.1 g/dL (32.0-36.0); Mean Corpuscular Hemoglobin 29.7 pg (27.0-31.0); Mean Corpuscular Volume 95.4 fL (78.0-98.0); Mean Platelet Volume 7.8 fL (7.4-10.4); Platelet Count 376 thou/uL (130-400); RBC Distribution Width 13.8 % (11.5-14.5); White Blood Cell (WBC) Count 7.6 thou/uL (4.8-10.8)
[2018-08-20 05:31] LABS: Anion Gap 15 mmol/L (10-20); BUN (Urea Nitrogen) 82 mg/dL (9.8-20.1); Calc. Creatinine Clearance 45 mL/min (70-130); Calcium 10.4 mg/dL (7.8-10.44); Carbon Dioxide 33 mmol/L (23-31); Chloride 94 mmol/L (98-107); Estimated GFR-MDRD 37; Glucose 102 mg/dL (83-110); Magnesium 1.9 mg/dL (1.6-2.6); Potassium 3.5 mmol/L (3.5-5.1); Sodium 138 mmol/L (136-145)
[2018-08-20] MEDS: Furosemide 40 MG/4 ML VIAL SLOW IVP SCH (06:07)
[2018-08-20] MEDS: Potassium Chloride 10 MEQ TAB PO SCH ×2 (09:04→18:08)
[2018-08-20] MEDS: Allopurinol 100 MG TAB PO SCH (09:04)
[2018-08-20] MEDS: Zinc Sulfate 220 MG CAP PO SCH (09:04)
[2018-08-20] MEDS: Magnesium Oxide 400 MG TAB PO SCH (09:04)
[2018-08-20] MEDS: DULoxetine 60 MG CAP PO SCH (09:04)
[2018-08-20] MEDS: Gabapentin 100 MG CAP PO SCH (09:04)
[2018-08-20] MEDS: Multivit, Therapeutic 1 TAB PO SCH (09:04)
[2018-08-20] MEDS: Docusate 100 MG CAP PO SCH (09:04)
[2018-08-20] MEDS: Ascorbic Acid 500 mg Chewable Tablet PO SCH (09:04)
[2018-08-20] MEDS: Acetaminophen 325 MG TAB PO SCH ×2 (09:04→16:12)
[2018-08-20] MEDS: Ferrous Sulfate 325 MG TAB PO SCH (09:04)
[2018-08-20] MEDS: Lactinex Tablet PO SCH (09:04)
[2018-08-20] MEDS: Fluticasone Propionate Nasal Spray 16 gm Bottle NASAL SCH (09:05)
[2018-08-20] MEDS: traMADol HCl 50 MG TAB PO SCH ×2 (09:05→16:12)
[2018-08-20] MEDS: Olmesartan 5 MG TAB PO PRN (09:13)
[2018-08-20] MEDS: HYDROcodone/Acetaminophen 5/325 mg Tablet PO PRN (12:02)
--- NOTE | 2018-08-20 13:21 | PRG ---
DATE OF SERVICE: 08/20/2018 HISTORY: Ms. Trinidad is doing okay. She is not having chest pain or pressure. She is sitting up no w at bedside. PHYSICAL EXAMINATION: VITAL SIGNS: Earlier her blood pressure was 145/75 supine, now it is 114/56 sitting, pulse 85. LUNGS: Clear. CARDIAC: Normal S1, normal S2. EXTREMITIES: Her legs are both wrapped. ASSESSMENT: 1. Cellulitis. 2. Diastolic heart failure approaching euvolemia. 3. Renal insufficiency, it is somewhat worse with diuresis as would be expected with the creatinine up to 1.37. PLAN: 1. Go back to oral diuretics. 2. Iron levels were low, but the ferritin level is 320. 3. Okay with me to be discharged home whenever they think it is okay from an infectious disease raul dpoint.
[2018-08-20] MEDS ORDERED: Furosemide 20 MG TAB PO SCH (14:00)
[2018-08-20] MEDS ORDERED: cefTRIAXone\\ROCEPHIN 1 GM in Sodium Chloride 0.9% 100 ML IVPB SCH (14:15)
[2018-08-20] MEDS ORDERED: Cephalexin 250 MG CAP PO SCH ×2 (14:30→18:00)
[2018-08-20 16:52] VITALS: BP 118/62; TEMP 97.5
[2018-08-20] MEDS ORDERED: Warfarin Sodium 3 MG TAB PO SCH (17:00)
--- NOTE | 2018-08-21 13:59 | DIS ---
DATE OF DISCHARGE: 08/20/2018 DISCHARGE DISPOSITION: Home with [facility]. FOLLOWUP: 1. Follow up with primary care physician, Dr. Briggs, in 1 week. 2. Follow up with Dr. Alejo as well as Dr. Cai in 2 weeks. A base met after 1 week is recommended. Primary care physician advised to follow. ALLERGIES: The patient is allergic to PENICILLIN, NITROFURANTOIN, and SULFA. The patient was seen and examined on the day of discharge. Denies any new complaints, no chest pain, shortness of breath, or palpitations. DISCHARGE MEDICATIONS: 1. Keflex 250 mg 4 times a day for 10 days. 2. The patient was advised to resume doxycycline prophylaxis after completion of Keflex. All other home medications were left, unchanged. 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 Please refer to the history and physical dated 08/16/2018 for further details. The patient was admitted to the hospital with a diagnosis of sepsis secondary to left lower extremity cellulitis. The patient showed good response with antibiotics. The patient was evaluated by Infect ious Disease, Dr. Cai. Per Dr. Cai' recommendation, ceftriaxone has been changed to Keflex. She also received wound care for chronic left lower extremity wound during this hospital stay. The patient was also found to have congestive heart failure exacerbation, for which Cardiology was co nsulted. She showed good response with diuretics. She lost approximately 15 pounds with diuresis. She has been cleared by consultants for discharge. FINAL DIAGNOSES: 1. Sepsis with acute organ dysfunction, secondary to left lower extremity cellulitis. 2. Lactic acidosis, secondary to sepsis. 3. Chronic venous thromboembolism, on anticoagulation. 4. Left lateral lower leg wound, currently followed by outpatient wound care. The patient has wound VAC. 5. Elevated troponins in the indeterminate range, secondary to sepsis/congestive heart failure. 6. Acute on chronic diastolic heart failure exacerbation. 7. Obstructive sleep apnea, on CPAP. 8. Hypertension. 9. Chronic lymphedema. 10. Degenerative joint disease. 11. Chronic anemia. 12. Chronic kidney disease, stage 3, with chronically atrophic left kidney. 13. Proteus bacteriuria. Plan of care was discussed with the patient and the family in detail. They stated understanding.
--- NOTE | 2018-08-31 15:42 | EKG ---
Test Reason : Blood Pressure : / mmHG Vent. Rate : 092 BPM Atrial Rate : 092 BPM P-R Int : 208 ms QRS Dur : 122 ms QT Int : 386 ms P-R-T Axes : 055 -47 095 degrees QTc Int : 477 ms Sinus rhythm with frequent Premature ventricular complexes Possible Left atrial enlargement Left anterior fascicular block Left ventricular hypertrophy with QRS widening and repolarization abnormality Abnormal ECG Confirmed by ADRIANA BLACK [id number]), technical writer and editor ISIDRA PURDY ([id number] on 08/31/2018 3:41:47 PM Referred By: Confirmed By:ADRIANA BLACK
== END 2018-08-20 18:19 | disposition home health service (06) | DRG 871 ==
LOC: ERS 10:21 → 2NO 15:19
PROVIDERS: ADMIT Internal Medicine; ATTEND Internal Medicine
DX: A41.9 Sepsis, unspecified organism (principal); I50.33 Acute on chronic diastolic (congestive) heart failure; L03.116 Cellulitis of left lower limb; E87.2 Acidosis; I82.91 Chronic embolism and thrombosis of unspecified vein; I13.0 Hypertensive heart and chronic kidney disease with heart failure and stage 1 through stage 4 chronic kidney disease, or unspecified chronic kidney disease; L76.31 Postprocedural hematoma of skin and subcutaneous tissue following a dermatologic procedure; E87.3 Alkalosis; N18.3 Chronic kidney disease, stage 3 (moderate); R65.20 Severe sepsis without septic shock; Z79.01 Long term (current) use of anticoagulants; I11.0 Hypertensive heart disease with heart failure; D63.1 Anemia in chronic kidney disease; G47.33 Obstructive sleep apnea (adult) (pediatric); E66.9 Obesity, unspecified; I89.0 Lymphedema, not elsewhere classified; Z91.81 History of falling; Z86.711 Personal history of pulmonary embolism; M16.0 Bilateral primary osteoarthritis of hip; M17.0 Bilateral primary osteoarthritis of knee; Z85.72 Personal history of non-Hodgkin lymphomas; Z90.49 Acquired absence of other specified parts of digestive tract; Z98.42 Cataract extraction status, left eye; Z98.41 Cataract extraction status, right eye; Z96.651 Presence of right artificial knee joint; Z88.0 Allergy status to penicillin; Z91.040 Latex allergy status; Z68.31 Body mass index [BMI] 31.0-31.9, adult
CPT/HCPCS: 36415; 51701; 71045; 80048; 80053; 81003; 81015; 82553; 82728; 83540; 83550; 83605; 83690; 83735; 83880; 84100; 84484; 85025; 85610; 85730; 87040; 87077; 87086; 87186; 87804; 93005; 93306; 93798; 94760; 96365; A4353; G8978-GP-CL; G8979-GP-CJ; G8987-GO-CM; G8988-GO-CM; G8989-GO-CM; J0692; J0696; J1120; J1940; J3370; J7050; Q0162

== ENCOUNTER 2018-08-24 14:30 | Outpatient (CLI) | payer MEDICARE ==
--- NOTE | 2018-08-24 16:08 | PRG ---
DATE OF SERVICE: 08/24/2018 HISTORY: Ms. Dodie Trinidad is a very pleasant 82-year-old accompanied by her daughter who presents to the [facility] for evaluation of a large wound of the left lateral lower leg subsequent to inci karin and drainage of a left leg hematoma on 06/06/[address] Robinson Baez. Negative pressure ther apy was initiated subsequent to surgery and the patient continues to receive dressing changes of the wound VAC 3 times per week with the assistance of Home Health. The patient has been evaluated by Dr. Robin Kasper for skin graft placement which the patient declined. Ms. Trinidad is presently receivin g treatment with MatriStem sheet in conjunction with negative pressure therapy. PHYSICAL EXAMINATION: VITAL SIGNS: Temperature 98.3, pulse 83, respirations 18, blood pressure 142/64. EXTREMITIES: A large wound of the left lateral lower leg is present which measures approximately 16. 5 x 6.0 cm. The dimensions of the wound at the time of the patient's visit on 08/10/2018 were approx imately 18.0 x 12.6 cm. Granulation tissue is present within the wound margins. No purulent drainag e is associated with the wound. No cellulitis of the left lower leg is appreciated. No maceration o f the skin of the periwound is noted. MatriStem sheet 7 x 10 cm was divided into 2 pieces and applie d to the wound bed followed by Mepitel and the GranuFoam of the wound VAC. Edema of the left foot an d lower leg is again noted on today's exam. ASSESSMENT AND PLAN: 1. Chronic venous hypertension with ulceration. MatriStem sheet was applied to the wound bed of the ulceration today. Orders will be transmitted to Home Health for the next dressing change will be pe rformed on 08/28/2018. The wound VAC will be placed to settings of 125 mmHg, continuous. I will see Ms. Bach again in one week. The patient is now receiving p.o. antibiotics as per Dr. Cai of Inf ectious Diseases. 2. Osteoarthritis. 3. History of non-Hodgkin's lymphoma status post chemotherapy with bleomycin and radiation therapy i n 1992. 4. History of pulmonary embolus. 5. Chronic lymphedema. 6. Hypertension. 7. Obstructive sleep apnea. 8. History of deep venous thrombosis. 9. Left atrophic kidney. 10. Chronic kidney disease. 11. Right hydronephrosis. 12. Congestive heart failure. 13. Anemia.
[2018-08-24] MEDS ORDERED: Lidocaine 4% Topical Sol 50 ML BOT ONE (20:00)
[2018-08-24] MEDS ORDERED: Sodium Chloride 0.9% 15 ML NEB ONE (20:00)
[2018-08-24] MEDS ORDERED: Lidocaine 2% Jelly 30 GM TUBE ONE (20:00)
== END 2018-08-24 14:31 | disposition home or self-care (01) ==
LOC: WCC 14:30
PROVIDERS: ATTEND Family Medicine
DX: I87.312 Chronic venous hypertension (idiopathic) with ulcer of left lower extremity (principal); L97.929 Non-pressure chronic ulcer of unspecified part of left lower leg with unspecified severity; M19.90 Unspecified osteoarthritis, unspecified site; I89.0 Lymphedema, not elsewhere classified; G47.33 Obstructive sleep apnea (adult) (pediatric); N26.1 Atrophy of kidney (terminal); N18.9 Chronic kidney disease, unspecified; N13.30 Unspecified hydronephrosis; I13.0 Hypertensive heart and chronic kidney disease with heart failure and stage 1 through stage 4 chronic kidney disease, or unspecified chronic kidney disease; N18.2 Chronic kidney disease, stage 2 (mild); D63.1 Anemia in chronic kidney disease; Z85.72 Personal history of non-Hodgkin lymphomas; Z86.711 Personal history of pulmonary embolism; Z86.718 Personal history of other venous thrombosis and embolism
CPT/HCPCS: A4218; C5271; C5272; J2001; Q4166-KX-JC

== ENCOUNTER 2018-08-30 21:24 | Inpatient (IN) | payer MEDICARE ==
[2018-08-30 22:10] LABS: Hemoglobin 11.8 g/dL (12.0-16.0); Mean Corpuscular HGB CONC 34.5 g/dL (32.0-36.0); Mean Corpuscular Hemoglobin 32.6 pg (27.0-31.0); Mean Corpuscular Volume 94.6 fL (78.0-98.0); Mean Platelet Volume 7.9 fL (7.4-10.4); Platelet Count 473 thou/uL (130-400); RBC Distribution Width 14.6 % (11.5-14.5); Red Blood Cell (RBC) Count 3.62 mill/uL (4.20-5.40); White Blood Cell (WBC) Count 24.5 thou/uL (4.8-10.8)
[2018-08-30 22:27] LABS: Band 3 % (5-11); Lymphocytes 4 % (21-51); MDiff Complete? YES; Monocytes 3 % (0-10); Neutrophil 90 % (42-75); PLT Morphology Comment Appears Increased
[2018-08-30] MEDS ORDERED: Fentanyl 100 MCG/2 ML VIAL ONE ×2 (22:27→23:02)
[2018-08-30 22:29] LABS: ALT (SGPT) 19 U/L (8-55); AST (SGOT) 19 U/L (5-34); Albumin 3.5 g/dL (3.4-4.8); Alkaline Phosphatase 106 U/L (40-150); Anion Gap 18 mmol/L (10-20); BUN (Urea Nitrogen) 116 mg/dL (9.8-20.1); Bilirubin, Total 0.4 mg/dL (0.2-1.2); Calc. Creatinine Clearance 0 mL/min (70-130); Calcium 10.6 mg/dL (7.8-10.44); Carbon Dioxide 29 mmol/L (23-31); Chloride 91 mmol/L (98-107); Estimated GFR-MDRD 34; Globulin 3.9 g/dL (2.4-3.5); Glucose 130 mg/dL (83-110); Potassium 5.2 mmol/L (3.5-5.1); Protein, Total 7.4 g/dL (6.0-8.3); Sodium 133 mmol/L (136-145)
[2018-08-30 22:48] LABS: INR-International Normal Ratio 2.1; PTT 58.6 SEC (22.9-36.1); Prothrombin Time 23.2 SEC (12.0-14.7)
[2018-08-30 22:59] LABS: Bilirubin Negative (Negative); Blood, Urine Negative (Negative); Clarity CLEAR (Clear); Glucose, Urine (Dipstick) Negative (Negative); Leukocyte Trace (Negative); Nitrite Negative (Negative); Protein, Urine (Dipstick) 30 mg/dL (Neg-Trace); Specific Gravity, Urine 1.015 (1.002-1.036); Urobilinogen 0.2 mg/dL (0.2-1.0); pH, Urine 6.5 (5.0-9.0)
[2018-08-30 23:01] LABS: Bacteria/HPF None Seen HPF (None Seen); Hyaline Casts/LPF 0-3 HYALINE CAST LPF (0-3 Hyaline); Pathc Cast-AUWi Flag 0.87 (0-2.49); RBC/HPF 0-3 HPF (0-3); WBC/HPF 0-3 HPF (0-3)
--- NOTE | 2018-08-30 23:16 | RAD ---
CHEST ONE VIEW: History: 82-year-old female with fever, left leg wound. FINDINGS: Heart size is within upper range of normal limits. No confluent pneumonia, overt edema, or pleural ef fusion. Stable from prior study. IMPRESSION: Upper range of normal sized heart. No confluent pneumonia, overt edema, or other acute process. POS: [facility]
[2018-08-30] MEDS ORDERED: Fentanyl 100 MCG/2 ML VIAL SLOW IVP PRN (23:29)
[2018-08-30] MEDS ORDERED: Acetaminophen 325 MG TAB PO PRN (23:30)
[2018-08-30] MEDS ORDERED: Ondansetron ODT 4 MG TAB SL PRN (23:30)
[2018-08-30] MEDS ORDERED: Ondansetron PF 4 MG/2 ML Vial IVP PRN (23:30)
[2018-08-31] MEDS ORDERED: Senokot S 8.6-50 MG TAB PO PRN ×2 (00:42)
[2018-08-31] MEDS ORDERED: cloNIDine 0.1 MG TAB PO PRN (00:42)
[2018-08-31] MEDS ORDERED: HYDROcodone/Acetaminophen 5/325 mg Tablet PO PRN ×2 (00:42)
[2018-08-31] MEDS ORDERED: Bisacodyl 5 MG TAB PO PRN (00:42)
[2018-08-31] MEDS ORDERED: Ondansetron PF 4 MG/2 ML Vial IVP PRN ×2 (00:42)
[2018-08-31] MEDS ORDERED: hydrALAZINE 20 MG/ML VIAL SLOW IVP PRN (00:42)
[2018-08-31] MEDS ORDERED: Calcium Carbonate 500 MG ChewTAB PO PRN (00:42)
[2018-08-31] MEDS ORDERED: Gabapentin 100 MG CAP PO SCH ×2 (01:15→02:00)
[2018-08-31] MEDS ORDERED: Melatonin 3 MG TAB PO SCH (01:15)
[2018-08-31] MEDS ORDERED: CHLORPHENIRAMINE PO PRN (01:24)
[2018-08-31] MEDS ORDERED: Albuterol Sulfate 2.5 mg/3 ml Neb NEB PRN (01:24)
[2018-08-31] MEDS ORDERED: DEXTROMETHORP PO PRN (01:24)
[2018-08-31] MEDS ORDERED: Nystatin Powder 15 GM BOT TOP PRN (01:24)
[2018-08-31] MEDS ORDERED: Acetaminophen 500 MG TAB PO PRN (01:24)
[2018-08-31] MEDS ORDERED: traMADol HCl 50 MG TAB PO PRN (01:24)
[2018-08-31] MEDS ORDERED: Benzonatate 100 MG CAP PO PRN (01:24)
[2018-08-31] MEDS ORDERED: cefTRIAXone\\ROCEPHIN 1 GM in Sodium Chloride 0.9% 100 ML IVPB SCH (01:30)
[2018-08-31] MEDS ORDERED: Estradiol 0.01% Vaginal Cream 42.5 gm Tube VAG SCH (01:45)
[2018-08-31] MEDS ORDERED: Fluconazole In NaCl,Iso-Osm 200 MG in Premix Bag 1 BAG IVPB SCH (02:00)
[2018-08-31 02:05] LABS: #Basophils 0.2 thou/uL (0.0-0.2); #Lymphocytes 0.4 thou/uL (1.20-3.40); #Monocytes 0.6 thou/uL (0.11-0.59); %Basophils 0.7 % (0.0-1.0); %Lymphocytes 1.4 % (21.0-51.0); %Monocytes 2.3 % (0.0-10.0); %Neutrophils 95.5 % (42.0-75.0); Hemoglobin 10.1 g/dL (12.0-16.0); Mean Corpuscular HGB CONC 30.7 g/dL (32.0-36.0); Mean Corpuscular Hemoglobin 29.3 pg (27.0-31.0); Mean Corpuscular Volume 95.3 fL (78.0-98.0); Mean Platelet Volume 7.7 fL (7.4-10.4); Platelet Count 431 thou/uL (130-400); RBC Distribution Width 14.5 % (11.5-14.5); Red Blood Cell (RBC) Count 3.45 mill/uL (4.20-5.40); White Blood Cell (WBC) Count 27.2 thou/uL (4.8-10.8)
[2018-08-31 02:10] LABS: INR-International Normal Ratio 2.2; Prothrombin Time 24.5 SEC (12.0-14.7)
[2018-08-31] MEDS ORDERED: WARFARIN PO PRN (02:18)
[2018-08-31 02:19] LABS: Lactic Acid 1.6 mmol/L (0.5-2.2)
[2018-08-31] MEDS ORDERED: VANCOMYCIN IVPB PRN (02:19)
[2018-08-31] MEDS ORDERED: Vancomycin HCl 1 GM in Premix Bag 1 BAG IVPB SCH (02:30)
[2018-08-31 02:31] LABS: Anion Gap 16 mmol/L (10-20); BUN (Urea Nitrogen) 113 mg/dL (9.8-20.1); Calc. Creatinine Clearance 46 mL/min (70-130); Calcium 10.2 mg/dL (7.8-10.44); Carbon Dioxide 26 mmol/L (23-31); Chloride 95 mmol/L (98-107); Estimated GFR-MDRD 38; Glucose 127 mg/dL (83-110); Potassium 5.1 mmol/L (3.5-5.1); Sodium 132 mmol/L (136-145)
--- NOTE | 2018-08-31 04:35 | HP ---
DATE OF ADMISSION: 08/30/2018 PRIMARY CARE PHYSICIAN: Matt Briggs MD PRIMARY PAPER CONTROL CLERK: Dr. Alejo. CHIEF COMPLAINT: Fever. HISTORY OF PRESENT ILLNESS: Ms. 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 History is mainly obtained by her da ughter. The patient is kind of somnolent at this time, bearing to CPAP and is not able to provide mu ch of the history. Extensive chart review has been done and the case has been discussed with [facility] physician, Dr. Xavier. The patient has complicated history when it comes to her left leg. She was admitted initially in 2017 with a left leg wound. She has been on warfarin chronically and developed a left leg hematoma w hen it was pinched by the Irma lift while she was transferring [facility] possibly the [facility]. At halle t time, she underwent incision and drainage of the left leg hematoma by Dr. Baez on 06/06/2018. S he was discharged home with the wound VAC at that time, but was readmitted again in May with the r ight knee swelling with possible prosthetic knee infection. At that time, ultrasound was negative fo r any DVT. She was placed on long-term IV vancomycin as per ID recommendation through a PICC line. She finished the vancomycin and did fairly well for a little bit, but unfortunately was readmitted on 08/16/2018 with low grade fever of 100.5 degrees and increased erythema of the left leg this time. Once again, she was put on broad spectrum IV antibiotic and Infectious Disease, Dr. Cai was consult ed. At this time, she was discharged home on oral Keflex with doxycycline prophylaxis after completi on of the Keflex. Patient's daughter report that they have finished the Keflex and has started the doxycycline about 3 days ago. She, however, feels that [facility], her wound dressing was not done properl y and she developed blisters 2 or 3 days ago, which have since progressed. The wound recently was dr re with a skin graft, which she feels it is not healing well because of the poor dressing. She not iced that the patient had a low-grade fever of 100.4 earlier this morning, so she was brought to the hospital. The daughter meticulously notes down patient's vital signs every few hours and she has kep t this log for the last almost whole year. She reports that her mother actually has done fairly well since the day of her discharge from the hospital on 08/20/2018 up until this morning when she develo ped fever. She denies any cough. She denies any diarrhea. She denies her mother complaining of any dysuria. She has noticed that her left leg has turned significantly red over the course of last day or so and the redness had extended all the way up to her chest. Upon presentation to the emergency room, the patient had a temperature of 98.7. Her WBC count; [facility], was elevated to 24,000, which was normal at the time of discharge on 08/20. She had significant left shift and neutrophils of 90%. Her BUN and creatinine are elevated above the baseline at 116 and 1.47 respectively with a potassium of 5.2. The daughter reports that they were recently taken off L asix and was started on torsemide by Dr. Alejo in the clinical setting as the Lasix was not working to keep the fluid off. Urinalysis and chest x-ray are rather unremarkable in the ER today. Her infl uenza testing is negative. She has been given vancomycin in the emergency room and is now being admi tted to the floor for sepsis. She has elevated lactic acid at 2.6 with likely source is the left leg cellulitis. PAST MEDICAL HISTORY: 1. Recent right knee cellulitis in 07/2018, status post 4 weeks of IV vancomycin. 2. Chronic wound of left lower leg, receiving the care of the [facility] by Dr. Zaragoza. 3. History of left leg hematoma, status post evacuation in 05/[address] Baez. 4. History of deep vein thrombosis and pulmonary embolism on anticoagulation with Coumadin. 5. History of non-Hodgkin's lymphoma, status post chemotherapy, in remission. 6. Chronic lymphedema. 7. Hypertension. 8. Obstructive sleep apnea, on CPAP. 9. Chronically left atrophic kidney. 10. Chronic kidney disease, stage 3. 11. Chronic diastolic congestive heart failure. 12. Anemia of chronic disease. PAST SURGICAL HISTORY: 1. Incision and drainage of the left leg hematoma. 2. Cholecystectomy. 3. Bilateral cataract surgery. 4. Right total knee arthroplasty with subsequent revision of the patellar tendon repair. 5. PICC line placement with subsequent removal in 05/2018. ALLERGIES: Listed as LATEX and PENICILLIN, but the patient has successfully taken Rocephin in the spital and Keflex in the outpatient setting. SOCIAL HISTORY: Currently lives at home as a FULL CODE. No history of drug, tobacco, or alcohol abu se. Daughter is a surrogate decision maker. HOME MEDICATION: Multiple as follows, albuterol p.r.n., Coumadin daily, estradiol cream daily, potas sium chloride 10 mEq daily, Protonix 40 mg daily, melatonin 10 mg at bedtime, Benicar 10 mg p.o. b.i. d., gabapentin 100 mg in the morning and 200 mg at night, Flonase nasal spray, ferrous sulfate b.i.d. , doxycycline 100 mg p.o. b.i.d., allopurinol 100 mg daily, and torsemide 20 mg daily. Multiple other p.r.n. medication including tramadol and protein supplements and multivitamins. REVIEW OF SYSTEMS: A 12-point review of systems is done. It is negative except for those mentioned in the history and physical. LABORATORY DATA: CBC shows WBCs 24.5 with 90% neutrophils, platelet count of 473, hemoglobin 11.8, I NR is 2.1. Serum chemistries: Sodium 133, potassium 5.2, chloride 91, BUN 116, creatinine 1.43. La ctic acid 2.6, calcium 10.6, total protein 7.4 with globulin is high at 3.9. Urinalysis showed trace leukocyte esterase and some protein. PHYSICAL EXAMINATION: VITAL SIGNS: Most recent vital signs, temperature 100.9, blood pressure 174/69, pulse of 92, respira tions 20, saturating 97% on room air. GENERAL: In no acute distress. The patient is somewhat somnolent after receiving huge amount of fen tanyl in the emergency room for pain complaints, in no acute distress. She is easily woken and follo ws commands and answers the questions when asked. HEENT: Mucous membrane is moist and pink. The patient is currently wearing the CPAP mask. Pupils a re equal, reactive to light. Head is normocephalic, atraumatic. NECK: Supple without any lymphadenopathy, JVD, or bruit. CHEST: Clear to auscultation without any wheezing, rales, or rhonchi. Rate and rhythm are regular w ithout any murmur, rubs, or gallops. ABDOMEN: Soft, nontender, nondistended with positive bowel sounds. EXTREMITIES: The right lower extremity is unremarkable. There is no right knee swelling or crepitus . Left lower extremity examination shows diffuse erythema, warmth, and swelling extending from her t oes all the way up her left leg going up in her abdomen on the left side and ending up in between her breasts. There is no sloughing of the skin at this time. Gross lymphedema is seen in the left lowe r extremity as well. NEUROLOGIC: Nonfocal. PSYCHIATRIC: Normal affect. IMPRESSION AND PLAN: 1. Sepsis, likely source is left lower extremity with recurrent cellulitis. It seems like the patie nt has developed blister during one of the wound dressing changes recently and that might have gotten super infected. However, the rapid spread of erythema all the way up her chest makes a suspicious a bout a Ivana infection as well. We will treat her with vancomycin and Rocephin and add Diflucan IV for now as well. We will request consultation with Infectious Disease again and have the wound care follow the patient in the hospital. The patient is therapeutic on warfarin, so the likelihood of re current deep venous thrombosis is less at this time. The infection appears limited to the skin at th is time; however, and imaging can be indicated if recommended by Infectious Disease to rule out deepe r infection under the wound. No other source of infection is evident other than the left leg celluli tis at this time. Blood cultures have been obtained in the emergency room along with urine culture a nd we will follow the results. Continue symptomatic and supportive care. Avoid excessive fluid resu scitation given the history of diastolic heart failure. She is currently hemodynamically stable. 2. Acute on chronic renal insufficiency. We will hold her ARBs and diuretics for now and recheck la bs in the morning. 3. Lactic acidosis secondary to sepsis. 4. Chronic venous thromboembolism, on chronic anticoagulation. We will check daily PT/INRs with pha chris to manage warfarin. 5. History of obstructive sleep apnea. Continue CPAP in house. 6. History of hypertension. Resume home medications and add p.r.n. antihypertensives. 7. Chronic lymphedema. 8. Chronic diastolic congestive heart failure. We will hold her torsemide in the light of acute yamilet al insufficiency for now. The patient's daughter reports that her BUN was [address] Tracy fang has recommended them to monitor it. 9. Code status: FULL CODE. Discussed with the patient's daughter. 10. Chronic anemia. 11. Gastrointestinal prophylaxis. DISPOSITION: Ms. Trinidad is currently being admitted to the hospital with sepsis with likely left lo wer extremity cellulitis. Further management will depend upon her clinical course. Estimated length of stay at this time is at least 2-3 midnights.
[2018-08-31] MEDS: Ascorbic Acid 500 mg Chewable Tablet PO SCH (08:23)
[2018-08-31] MEDS: Allopurinol 100 MG TAB PO SCH (08:23)
[2018-08-31] MEDS: Cyanocobalamin (Vitamin B-12) 1,000 MCG TAB PO SCH (08:23)
[2018-08-31] MEDS: Docusate 100 MG CAP PO SCH ×2 (08:23→21:08)
[2018-08-31] MEDS: DULoxetine 60 MG CAP PO SCH (08:23)
[2018-08-31] MEDS: Fluconazole In NaCl,Iso-Osm 100 MG in Premix Bag 1 BAG IVPB SCH (08:24)
[2018-08-31] MEDS: Gabapentin 100 MG CAP PO SCH ×2 (08:24→21:08)
[2018-08-31] MEDS: Multivit, Therapeutic 1 TAB PO SCH (08:24)
[2018-08-31] MEDS: Ferrous Sulfate 325 MG TAB PO SCH ×2 (08:24→21:08)
[2018-08-31] MEDS: Magnesium Oxide 400 MG TAB PO SCH ×2 (08:24→21:07)
[2018-08-31] MEDS: Lactinex Tablet PO SCH ×3 (08:24→21:07)
[2018-08-31] MEDS: HYDROcodone/Acetaminophen 10/325 mg Tablet PO PRN ×4 (08:25→22:16)
[2018-08-31] MEDS: Zinc Sulfate 220 MG CAP PO SCH (08:32)
[2018-08-31] MEDS ORDERED: [UNRECOGNIZED DRUG - OTHER] PO SCH (09:00)
[2018-08-31] MEDS ORDERED: Fluconazole In NaCl,Iso-Osm 100 MG in Premix Bag 1 BAG IVPB SCH (09:00)
[2018-08-31] MEDS ORDERED: PROTEIN SUPPLEMENT PO SCH (09:00)
[2018-08-31] MEDS ORDERED: Enoxaparin Sodium 30 MG/0.3 ML SYRINGE SC SCH (09:00)
[2018-08-31] MEDS ORDERED: Famotidine 20 MG TAB PO SCH (09:00)
[2018-08-31] MEDS: Fluticasone Propionate Nasal Spray 16 gm Bottle NASAL SCH (09:10)
--- NOTE | 2018-08-31 14:03 | PRG ---
DATE OF SERVICE: 08/31/2018 HISTORY: Ms. Trinidad is back in the hospital. She has recurrent fever. She was found to have her B UN is higher. She is not short of breath. PHYSICAL EXAMINATION: VITAL SIGNS: Blood pressure 112/58, pulse 80, it is regular. LUNGS: Clear. CARDIAC: Normal S1, normal S2. ABDOMEN: Soft, nontender. EXTREMITIES: There is moderate to severe edema. PERTINENT LABORATORY: Potassium is 5.1, sodium 132, BUN 113, creatinine 1.33. ASSESSMENT: 1. Diastolic congestive heart failure. 2. Volume overload. 3. Cellulitis. PLAN: 1. Hold diuretics for now. 2. We will need to resume diuretics soon. Unfortunately this is a difficult situation. We will need to try to balance the amount of diuretics out to control the peripheral edema as certainly the edema contributes to her recurrent cellulitis.
[2018-08-31] MEDS: Warfarin Sodium 3 MG TAB PO SCH (16:06)
[2018-08-31] MEDS ORDERED: WARFARIN SODIUM 6 MG PO SCH (17:00)
[2018-08-31] MEDS: Cefepime 1 GM in Sodium Chloride 0.9% 100 ML IVPB SCH (17:51)
[2018-08-31] MEDS ORDERED: Diabetic Tussin 200 MG/10 ML UDCUP PO PRN (19:04)
[2018-08-31] MEDS ORDERED: Non-Formulary Item 1 EACH (Melatonin [Melatonin] 10 MG) PO SCH (21:00)
[2018-08-31] MEDS: Melatonin 3 MG TAB PO SCH (21:06)
[2018-08-31] MEDS: Estradiol 0.01% Vaginal Cream 42.5 gm Tube VAG SCH (21:11)
[2018-08-31] MEDS: Nystatin Powder 15 GM BOT TOP SCH (21:12)
[2018-08-31] MEDS: Vancomycin HCl 1 GM in Premix Bag 1 BAG IVPB SCH (22:18)
--- NOTE | 2018-08-31 22:18 | CON ---
DATE OF CONSULTATION: 08/31/2018 HISTORY OF PRESENT ILLNESS: An 82-year-old whom we had recently seen in this hospital at the end of July just a few days ago when she was admitted with a history of non-Hodgkin's lymphoma in remission for many years, prior episodes of DVT, degenerative arthritis with right knee replacement in 2014, and a hematoma in left leg, which required surgical debridement. The patient had an infection in the right TKR site with coagulase-negative Staph, which was treated with vancomycin and she still wants suppressive doxycycline. She recently was treated for cellulitis in the left lower extremity and now she developed cellulitis in the right lower extremity what appears to be and was admitted. She has a little bit of erythema in the abdominal area as well. There is no pruritus. No headaches. No shortness of breath or chest pain. No abdominal pain or diarrhea. No genitourinary symptoms. 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 PAST SURGICAL HISTORY: Also includes cholecystectomy, patellar tendon repair following TKR. ALLERGIES: PENICILLIN AND LATEX. SOCIAL HISTORY: Lives at home, never a smoker. 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 FAMILY HISTORY: Noncontributory. CURRENT MEDICATIONS: Include Tylenol, Dalton, Floranex, Ventolin, Zyloprim, vitamin C, Tessalon, Dulcolax, Tums, Rocephin, Catapres, fluconazole, hydralazine, melatonin, vancomycin, zinc. PHYSICAL EXAMINATION: VITAL SIGNS: T-max 100.9, she is now 97.8. Other vital signs are not remarkable. O2 sat 92%. SKIN: Erythema in the lower extremity, not as intense as the one seen in the left side. She has erythema in the left abdominal area, only on the left side, which probably is related to vascular changes due to positioning. No intertriginous erythema any longer. The left leg is covered with compressive dressing, which was not removed. She has a little bit of erythema in the medial aspect of the right thigh, which is not painful. Ocular movements conjugate. NECK: No jugular vein distention. LUNGS: Symmetric clear breath sounds. HEART: S1, S2 regular rate. No S3 or S4. ABDOMEN: Soft. Not distended or tender. GENITOURINARY: She does not have a Schroeder catheter. She is voiding spontaneously. NEUROLOGIC: Nonfocal. LABORATORY DATA: White cell count was at 24, now is up to 27; hemoglobin 10; platelets 431 with 95% neutrophils. Sodium 132, creatinine 1.33. Liver profile is normal. Albumin is 3.5. Microbiology with negative blood cultures thus far. Urine culture, no growth at 12 hours. She has a chest x-ray completed with upper range of normal size of the heart. No pneumonia noted. ASSESSMENT AND DISCUSSION: Lymphoma, in remission; prior deep venous thrombosis and pulmonary embolism, on Coumadin; hematoma of left leg with surgical debridement; cellulitis of left leg and now cellulitis of right leg with marked neutrophilia. She also has this area of erythema in the abdominal fold area, left side. This appears to be more of a positional vascular changes rather than true infection. She does not have much pain in the right knee, so does not look like that infection is out of control. We will have to continue following that carefully, because she never truly had a complete washout of the right knee infection. At this point, continue Rocephin and eventual transition to Keflex, and I think she is going to have to be on Keflex and doxycycline suppressive therapy. The doxycycline will be for the right knee coagulase- negative Staph infection, and the Keflex for suppression of the cellulitis recurrences. ANA
--- NOTE | 2018-08-31 23:39 | CON ---
DATE OF CONSULTATION: 08/31/2018 CONSULTING PHYSICIAN: Dr. Gant. REASON FOR CONSULTATION: Acute kidney injury. REASON FOR ADMISSION: Abnormal labs. HISTORY OF PRESENT ILLNESS: An 82-year-old female with history of chronic kidney disease, DVT, lymph aubrey, hypertension, obstructive sleep apnea, CHF, came to the hospital with above complaints. Nephrol siddharth is consulted for elevated BUN and creatinine. The patient was on Lasix with no improvement in ur ine output and was found to have a BUN of 153, so primary care advised her to come to the [facility]. The patient's diuretic was held and this morning was 130 and the patient is feeling better, no nausea, vomiting, no shortness of breath or chest pain. No fever or chills reported. No chest pain. No fever or skin rash. PAST MEDICAL HISTORY: Positive for recent cellulitis, DVT, lymphoma, lymphedema, hypertension, sleep apnea, chronic left atrophic kidney, CKD, CHF and anemia. PAST SURGICAL HISTORY: Cholecystectomy, cataracts, knee surgery, PICC line placement. HOME MEDICATIONS: Include Coumadin, estradiol, potassium chloride, Protonix, melatonin, Benicar, spencer apentin, Flonase, ferrous sulfate, doxycycline, allopurinol, torsemide. ALLERGIES: PENICILLIN, ADHESIVE TAPE, NITROFURANTOIN, SULFAMETHOXAZOLE, TRIMETHOPRIM. SOCIAL HISTORY: No smoking, alcohol, or illicit drug abuse. FAMILY HISTORY: No history of any kidney disease. REVIEW OF SYSTEMS: The following complete review of systems was negative, unless otherwise mentioned in the HPI or below: Constitutional: Weight loss or gain, ability to conduct usual activities. Sk in: Rash, itching. Eyes: Double vision, pain. ENT/Mouth: Nose bleeding, neck stiffness, pain, te nderness. Cardiovascular: Palpitations, dyspnea on exertion, orthopnea. Respiratory: Shortness of breath, wheezing, cough, hemoptysis, fever or night sweats. Gastrointestinal: Poor appetite, abdom inal pain, heartburn, nausea, vomiting, constipation, or diarrhea. Genitourinary: Urgency, frequenc y, dysuria, nocturia. Musculoskeletal: Pain, swelling. Neurologic/Psychiatric: Anxiety, depressio n. Allergy/Immunologic: Skin rash, bleeding tendency. PHYSICAL EXAMINATION: GENERAL: This is an obese female, in no apparent distress. VITAL SIGNS: Temperature 98.1, pulse 82, respiratory rate 18, blood pressure 112/72. HEENT: Atraumatic, normocephalic. Oral mucosa is moist. NECK: Supple, no masses. CARDIOVASCULAR: S1, S1 heard. Rate and rhythm regular. RESPIRATORY: Clear. GASTROINTESTINAL: Abdomen is soft. MUSCULOSKELETAL: 1+ edema. DERMATOLOGIC: No skin rash. NEUROLOGIC: Alert, awake. PSYCHIATRIC: Mood and affect normal. LABORATORY DATA: Hemoglobin is 7.1, potassium is 5.1, BUN is 113, creatinine is 1.3. ASSESSMENT AND PLAN: 1. Acute kidney injury on chronic kidney stage 3, with improvement in creatinine. Creatinine is 1.3 , BUN is also better to 113 from 153. Agree with holding diuretics and monitor. Advised to limit fl uid intake and salt intake. 2. Hyponatremia, stable. 3. Hyperkalemia, better. 4. Cardiorenal syndrome as above. 5. Mild hypoalbuminemia. 6. Anemia. 7. Obesity. 8. Multiple comorbid condition. 9. We will continue to close monitor renal function. Avoid nephrotoxins, renally dose all the medic ations. Agree with holding diuretics and continue on fluid restriction if tolerated. Monitor vancom ycin level and renally dose all the medications. We will follow. Thank you for the consult.
[2018-09-01 05:53] LABS: #Eosinphils 0.2 thou/uL (0.0-0.7); #Lymphocytes 0.9 thou/uL (1.20-3.40); #Monocytes 0.5 thou/uL (0.11-0.59); #Neutrophils 7.7 thou/uL (1.40-6.50); %Basophils 0.1 % (0.0-1.0); %Eosinophils 1.8 % (0.0-10.0); %Lymphocytes 9.3 % (21.0-51.0); %Monocytes 5.3 % (0.0-10.0); %Neutrophils 83.5 % (42.0-75.0); Hemoglobin 8.7 g/dL (12.0-16.0); Mean Corpuscular HGB CONC 30.7 g/dL (32.0-36.0); Mean Corpuscular Hemoglobin 29.5 pg (27.0-31.0); Mean Platelet Volume 8.1 fL (7.4-10.4); Platelet Count 347 thou/uL (130-400); RBC Distribution Width 14.4 % (11.5-14.5); Red Blood Cell (RBC) Count 2.95 mill/uL (4.20-5.40); White Blood Cell (WBC) Count 9.2 thou/uL (4.8-10.8)
[2018-09-01 05:59] LABS: INR-International Normal Ratio 2.7; Prothrombin Time 28.5 SEC (12.0-14.7)
[2018-09-01 06:11] LABS: ALT (SGPT) 15 U/L (8-55); AST (SGOT) 18 U/L (5-34); Albumin 2.6 g/dL (3.4-4.8); Alkaline Phosphatase 79 U/L (40-150); Anion Gap 12 mmol/L (10-20); BUN (Urea Nitrogen) 107 mg/dL (9.8-20.1); Bilirubin, Total 0.3 mg/dL (0.2-1.2); Calc. Creatinine Clearance 45 mL/min (70-130); Calcium 9.8 mg/dL (7.8-10.44); Carbon Dioxide 29 mmol/L (23-31); Chloride 96 mmol/L (98-107); Estimated GFR-MDRD 37; Glucose 107 mg/dL (83-110); Magnesium 2.2 mg/dL (1.6-2.6); Potassium 4.8 mmol/L (3.5-5.1); Protein, Total 5.6 g/dL (6.0-8.3); Sodium 132 mmol/L (136-145)
[2018-09-01] MEDS: Acetaminophen 325 MG TAB PO PRN ×4 (07:29→23:27)
[2018-09-01] MEDS: Gabapentin 100 MG CAP PO SCH ×2 (08:28→20:13)
[2018-09-01] MEDS: Allopurinol 100 MG TAB PO SCH (08:28)
[2018-09-01] MEDS: Ascorbic Acid 500 mg Chewable Tablet PO SCH (08:29)
[2018-09-01] MEDS: Cyanocobalamin (Vitamin B-12) 1,000 MCG TAB PO SCH (08:29)
[2018-09-01] MEDS: Docusate 100 MG CAP PO SCH ×2 (08:30→20:12)
[2018-09-01] MEDS: DULoxetine 60 MG CAP PO SCH (08:31)
[2018-09-01] MEDS: Ferrous Sulfate 325 MG TAB PO SCH ×2 (08:31→20:13)
[2018-09-01] MEDS: Multivit, Therapeutic 1 TAB PO SCH (08:32)
[2018-09-01] MEDS: Fluticasone Propionate Nasal Spray 16 gm Bottle NASAL SCH (08:32)
[2018-09-01] MEDS: Lactinex Tablet PO SCH ×3 (08:32→20:14)
[2018-09-01] MEDS: Magnesium Oxide 400 MG TAB PO SCH ×2 (08:32→20:14)
[2018-09-01] MEDS: Zinc Sulfate 220 MG CAP PO SCH (08:33)
[2018-09-01] MEDS: Nystatin Powder 15 GM BOT TOP SCH (08:34)
[2018-09-01] MEDS: Fluconazole In NaCl,Iso-Osm 100 MG in Premix Bag 1 BAG IVPB SCH (09:23)
--- NOTE | 2018-09-01 09:28 | PRG ---
Patient Name: MARC KAYE Date of service: 09/01/2018 Subjective: Patient was seen and examined at bedside and overnight events noted. Patient denies any shortness of breath or chest pain or palpitation. No history of nausea or vomiting or diarrhea or fever or chills or cramps. Objective: General: This is an obese female in no apparent distress. Vital signs: Temperature 98.3, pulse 80, respiratory rate 18, blood pressure 124/65. HEENT: Atraumatic, normocephalic. Oral mucosa is moist. Neck: Supple. Cardiovascular: S1 S2 heard. Rate and rhythm regular. Respiratory: Clear to auscultation. Gastrointestinal: Abdomen is soft. Musculoskeletal: No tenderness. 1+ edema. Dermatologic: No skin rash. Neurologic: Alert and awake and oriented X3. No focal neurologic deficits. Moving all the extremit ies. Psychiatric: Mood and affect normal. LABORATORY DATA: Hemoglobin is 8.7, potassium is 4.8, BUN 107, creatinine is 1.3. ASSESSMENT AND PLAN: 1. Acute kidney injury on chronic kidney disease stage 3 with elevated BUN, most likely from protein supplements sepsis, rule out any bleed. Avoid nephrotoxins. Creatinine is stable, but elevated BUN . 2. Azotemia, most likely from supplements. We will have dietitian consult. 3. Hyponatremia. Limit fluid intake. 4. Hypochloremia. 5. Cardiorenal syndrome. 6. Obesity. 7. Hyperkalemia, better. 8. She will have dietitian consult. 9. Diuretics as tolerated. We will follow.
[2018-09-01] MEDS ORDERED: Torsemide 20 MG TAB PO SCH (11:45)
--- NOTE | 2018-09-01 12:03 | PRG ---
DATE OF SERVICE: 09/01/2018 SUBJECTIVE: Ms. Trinidad is doing okay. No chest pain or pressure. No complaints. OBJECTIVE: VITAL SIGNS: Blood pressure 124/65, pulse 85 and regular. LUNGS: Clear. CARDIAC: Normal S1, normal S2. ABDOMEN: Soft, nontender. EXTREMITIES: Starting to get increasing amounts of edema. Severe peripheral edema elevating of her feet. LABORATORY DATA: Her creatinine is down to 1.36. BUN is 107. Sodium is 132. ASSESSMENT: 1. Diastolic heart failure, becoming volume overloaded. 2. Increased BUN. The cart driver indicated to us that this may be largely related to increased pr otein in the diet. 3. Poor healing of her lower extremities. PLAN: 1. Need to resume torsemide at least 20 mg a day. We are also going to have really severe volume ov erload. 2. Continue antibiotics. 3. Elevation of lower extremities.
[2018-09-01] MEDS: traMADol HCl 50 MG TAB PO PRN ×3 (14:32→23:28)
[2018-09-01] MEDS: Warfarin Sodium 3 MG TAB PO SCH (17:49)
[2018-09-01] MEDS: Cefepime 1 GM in Sodium Chloride 0.9% 100 ML IVPB SCH (17:49)
[2018-09-01] MEDS: Melatonin 3 MG TAB PO SCH (20:15)
[2018-09-01] MEDS: Estradiol 0.01% Vaginal Cream 42.5 gm Tube VAG SCH (20:22)
--- NOTE | 2018-09-01 20:47 | PDOC.PN ---
- Subjective Encounter Start Date: 09/01/18 Encounter Start Time: 09:00 Patient seen and examined for Sepsis. Feels better. No new complaints. No overnight events - Objective MAR Reviewed: Yes Vital Signs & Weight: Vital Signs (12 hours) Temp Pulse Pulse Resp BP BP Pulse Ox 09/01/18 19:14 98.5 F 81 16 164/70 H 91 L 09/01/18 16:00 98.7 F 82 18 107/51 L 97 09/01/18 13:20 85 137/66 09/01/18 12:00 97.7 F 82 18 139/66 91 L Pulse Ox 09/01/18 19:14 09/01/18 16:00 09/01/18 13:20 91 L 09/01/18 12:00 Weight Admit Weight 197 lb 7 oz Weight 201 lb 9.6 oz I&O: 08/31/18 09/01/18 09/02/18 06:59 06:59 06:59 Intake Total 700 1130 1270 Output Total 50 Balance 700 1130 1220 Result Diagrams: 09/01/18 04:49 09/01/18 04:49 Phys Exam - Physical Examination Constitutional: NAD Respiratory: no wheezing, no rhonchi Cardiovascular: RRR, no rub Gastrointestinal: soft, non-tender, positive bowel sounds Musculoskeletal: edema present wound vac + Dx/Plan - Plan 1. Sepsis with acute organ dysfunction, secondary to left lower extremity cellulitis/Pseudomonas bacteremia 2. Lactic acidosis, secondary to sepsis. 3. Chronic venous thromboembolism, on anticoagulation. 4. Left lateral lower leg wound, followed by Dr. Zaragoza. Patient currently has wound VAC. 5. Chronic kidney disease, stage 3, with chronically left atrophic kidney. 6. Chronic diastolic CHF exacerbation. ACC stage C 7. Obstructive sleep apnea, on CPAP. 8. Hypertension. 9. Chronic lymphedema. 10. Degenerative joint disease. 11. Chronic anemia. PLAN: Cont Cefepime/Vancomycin/Fluconazole with wound care Cont current meds as below CBC/INR/BMP in AM Microbiology 08/30/18 22:15 Urine Straight Catheter Urine Culture - Final NO GROWTH AT 36 HOURS 08/30/18 22:15 Nasal swab Influenza Types A,B Direct EIA - Final 08/30/18 21:55 Venous blood - Left Hand Blood Culture - Preliminary Pseudomonas aeruginosa 08/30/18 21:48 Leg - Pending Bacterial Culture - Preliminary Presumptive Pseudomonas 08/30/18 21:47 Venous blood - Right Arm Blood Culture - Preliminary Pseudomonas aeruginosa Review of Systems - Review of Systems Respiratory: negative: Cough, Dry, Shortness of Breath, Hemoptysis, SOB with Excertion, Pleuritic Pain, Sputum, Wheezing Cardiovascular: negative: chest pain, palpitations, orthopnea, paroxysmal nocturnal dyspnea, edema, light headedness, other - Medications/Allergies Allergies/Adverse Reactions: Allergies Allergy/AdvReac Type Severity Reaction Status Date / Time Penicillins Allergy Unknown Verified 06/04/18 18:32 adhesive tape Allergy Verified 08/30/18 23:58 nitrofurantoin Allergy Verified 06/04/18 18:33 [From Macrobid] sulfamethoxazole Allergy Verified 06/04/18 18:33 [From Bactrim] trimethoprim [From Bactrim] Allergy Verified 06/15/18 21:18 Medications: Current Medications Acetaminophen (Tylenol) 650 mg PO Q4H PRN PRN Reason: Headache/Fever/Mild Pain (1-3) Last Admin: 09/01/18 19:25 Dose: 650 mg Hydrocodone Bitart/Acetaminophen ([place] 10/325) 1 tab PO Q4H PRN PRN Reason: Severe Pain (7-10) Last Admin: 08/31/18 22:16 Dose: 1 tab Acidophilus (Floranex) 1 tab PO TID [facility] Last Admin: 09/01/18 20:14 Dose: 1 tab Albuterol Sulfate (Ventolin) 2.5 mg NEB Q6H PRN PRN Reason: SOB &/or Wheezing Allopurinol (Zyloprim) 100 mg PO 0900 [facility] Last Admin: 09/01/18 08:28 Dose: 100 mg Ascorbic Acid (Vitamin C) 1,000 mg PO 0900 [facility] Last Admin: 09/01/18 08:29 Dose: 1,000 mg Benzonatate (Tessalon) 100 mg PO TIDPRN PRN PRN Reason: Cough Bisacodyl (Dulcolax) 10 mg PO DAILYPRN PRN PRN Reason: Constipation Calcium Carbonate (Tums) 1,000 mg PO Q4H PRN PRN Reason: Heartburn or Indigestion Clonidine (Catapres) 0.1 mg PO Q4H PRN PRN Reason: SBP >160 Cyanocobalamin (Vitamin B-12) 1,000 mcg PO 0900 [facility] Last Admin: 09/01/18 08:29 Dose: 1,000 mcg Docusate Sodium (Colace) 100 mg PO BID [facility] Last Admin: 09/01/18 20:12 Dose: 100 mg Duloxetine HCl (Cymbalta) 60 mg PO 0900 [facility] Last Admin: 09/01/18 08:31 Dose: 60 mg Estradiol (Estrace 0.01% Vaginal Cream) 2 gm VAG 2100 [facility] Last Admin: 09/01/18 20:22 Dose: 2 gm Ferrous Sulfate (Feosol) 325 mg PO BID [facility] Last Admin: 09/01/18 20:13 Dose: 325 mg Fluticasone Propionate (Flonase Nasal [place]) 0 gm NASAL DAILY [facility] Last Admin: 09/01/18 08:32 Dose: 2 spr Gabapentin (Neurontin) 100 mg PO 0900 [facility] Last Admin: 09/01/18 08:28 Dose: 100 mg Gabapentin (Neurontin) 200 mg PO 2100 [facility] Last Admin: 09/01/18 20:13 Dose: 200 mg Guaifenesin (Robitussin Sf) 200 mg PO Q4H PRN PRN Reason: Cough Hydralazine HCl (Apresoline) 10 mg SLOW IVP Q4H PRN PRN Reason: SBP > 180 and HR < 70 Vancomycin HCl 1 gm/ Device 200 mls @ 200 mls/hr IVPB 2200 [facility] Last Admin: 08/31/18 22:18 Dose: 200 mls Fluconazole/Sodium Chloride (100 mg/ Device) 50 mls @ 100 mls/hr IVPB DAILY [facility] Last Admin: 09/01/18 09:23 Dose: 50 mls Cefepime HCl 1 gm/ Sodium (Chloride) 100 mls @ 200 mls/hr IVPB Q24HR@1800 [facility] Last Admin: 09/01/18 17:49 Dose: 100 mls Magnesium Oxide (Magnesium Oxide) 400 mg PO BID [facility] Last Admin: 09/01/18 20:14 Dose: 400 mg Melatonin (Melatonin) 9 mg PO HS [facility] Last Admin: 09/01/18 20:15 Dose: 9 mg Miscellaneous Medication (Pharmacy To Dose) 1 each PO PRN PRN PRN Reason: HX DVT/PE Miscellaneous Medication (Pharmacy To Dose) 1 each IVPB PRN PRN PRN Reason: SEPSIS Miscellaneous Medication (Pharmacy To Dose) 1 each IVPB PRN PRN PRN Reason: Pharmacy to dose Multivitamins (Theragran) 1 tab PO DAILY [facility] Last Admin: 09/01/18 08:32 Dose: 1 tab Nystatin (Mycostatin Powder) 0 gm TOP BID PRN PRN Reason: yeast infection Ondansetron HCl (Zofran) 4 mg IVP Q6H PRN PRN Reason: Nausea/Vomiting Pantoprazole Sodium (Protonix) 40 mg PO 0900 [facility] Last Admin: 09/01/18 08:33 Dose: 40 mg Senna/Docusate Sodium (Senokot S) 2 tab PO BID PRN PRN Reason: Constipation Torsemide (Demadex) 20 mg PO DAILY [facility] Tramadol HCl (Ultram) 50 mg PO Q4H PRN PRN Reason: Moderate Pain (4-6) Last Admin: 09/01/18 19:25 Dose: 50 mg Warfarin Sodium (Coumadin) 3 mg PO 1700 [facility] Last Admin: 09/01/18 17:49 Dose: 3 mg Zinc Sulfate (Zinc Sulfate) 220 mg PO 0900 [facility] Last Admin: 09/01/18 08:33 Dose: 220 mg
[2018-09-01 21:31] LABS: Vancomycin, Trough 18.7 ug/mL
[2018-09-01] MEDS: Vancomycin HCl 1 GM in Premix Bag 1 BAG IVPB SCH (21:38)
--- NOTE | 2018-09-01 21:51 | PRG ---
DATE OF SERVICE: 09/01/2018 SUBJECTIVE: Does not appear in any distress. Still with some pain in the lower extremities at the sites of inflammatory change. No respiratory symptoms , abdominal pain or diarrhea. OBJECTIVE: VITAL SIGNS: T-max is 100.9. She has been afebrile since. Blood pressure 130/ 66, pulse 82, respirations 18. SKIN: Shows resolution of the abdominal wall areas of erythema. EXTREMITIES: The left lower extremity with negative pressure dressing over the wound in the right leg with the areas of erythema below the mid segment of the anterior skin. HEENT: Ocular movements are conjugate. LUNGS: Clear. CARDIOVASCULAR: S1, S2, regular rate. ABDOMEN: Soft and not distended. LABORATORY DATA: White cell count 9.2, hemoglobin 8.7, platelets 347, 82% neutrophils. Sodium 132, creatinine 1.36. Normal liver profile, calcium down to 9.8, albumin down to 2.6. Urinalysis with 0-3 wbc's. Microbiology with 2 sets of blood cultures with presumptive Pseudomonas aeruginosa. The leg culture with also presumptive Pseudomonas aeruginosa. Does not state which leg suspect that this is from the left leg wound site. ASSESSMENT: Lymphoma in remission, prior deep venous thrombosis, pulmonary embolism on Coumadin, hematoma left leg with surgical debridement and chronic wound management. Cellulitis of now the right and left leg with marked neutrophilia and Pseudomonas aeruginosa bacteremia. DISCUSSION: The most likely scenario here is the wound infection by Pseudomonas with access to the blood stream from that site. Patient had some blistering and some liquid exposure of the wound that probably led to colonization by Pseudomonas aeruginosa and then bacteremia. We will wait for the final results of the susceptibility profile of the organism and then hopefully switch her to oral ciprofloxacin. Otherwise, she will need a PICC line placement, 2 weeks of IV cefepime and if it confirms susceptibility to cefepime. [facility]
[2018-09-02] MEDS: Acetaminophen 325 MG TAB PO PRN ×3 (04:20→13:53)
[2018-09-02] MEDS: traMADol HCl 50 MG TAB PO PRN ×3 (04:20→13:53)
[2018-09-02 05:53] LABS: INR-International Normal Ratio 2.6; Prothrombin Time 27.5 SEC (12.0-14.7)
[2018-09-02 05:55] LABS: #Eosinphils 0.2 thou/uL (0.0-0.7); #Monocytes 0.5 thou/uL (0.11-0.59); #Neutrophils 5.6 thou/uL (1.40-6.50); %Basophils 0.7 % (0.0-1.0); %Eosinophils 3.2 % (0.0-10.0); %Lymphocytes 13.7 % (21.0-51.0); %Monocytes 6.6 % (0.0-10.0); %Neutrophils 75.9 % (42.0-75.0); Hemoglobin 9.5 g/dL (12.0-16.0); Mean Corpuscular HGB CONC 30.7 g/dL (32.0-36.0); Mean Corpuscular Hemoglobin 29.1 pg (27.0-31.0); Mean Corpuscular Volume 94.8 fL (78.0-98.0); Mean Platelet Volume 7.7 fL (7.4-10.4); Platelet Count 369 thou/uL (130-400); RBC Distribution Width 14.2 % (11.5-14.5); Red Blood Cell (RBC) Count 3.28 mill/uL (4.20-5.40); White Blood Cell (WBC) Count 7.4 thou/uL (4.8-10.8)
[2018-09-02 06:07] LABS: Anion Gap 9 mmol/L (10-20); BUN (Urea Nitrogen) 87 mg/dL (9.8-20.1); Calc. Creatinine Clearance 44 mL/min (70-130); Calcium 9.7 mg/dL (7.8-10.44); Carbon Dioxide 33 mmol/L (23-31); Chloride 95 mmol/L (98-107); Estimated GFR-MDRD 35; Glucose 98 mg/dL (83-110); Potassium 4.4 mmol/L (3.5-5.1); Sodium 133 mmol/L (136-145)
[2018-09-02] MEDS: Gabapentin 100 MG CAP PO SCH ×2 (09:12→21:45)
[2018-09-02] MEDS: Zinc Sulfate 220 MG CAP PO SCH (09:12)
[2018-09-02] MEDS: Torsemide 20 MG TAB PO SCH (09:12)
[2018-09-02] MEDS: Ferrous Sulfate 325 MG TAB PO SCH ×2 (09:13→21:45)
[2018-09-02] MEDS: DULoxetine 60 MG CAP PO SCH (09:13)
[2018-09-02] MEDS: Docusate 100 MG CAP PO SCH ×2 (09:13→21:45)
[2018-09-02] MEDS: Multivit, Therapeutic 1 TAB PO SCH (09:14)
[2018-09-02] MEDS: Allopurinol 100 MG TAB PO SCH (09:14)
[2018-09-02] MEDS: Magnesium Oxide 400 MG TAB PO SCH ×2 (09:14→21:45)
[2018-09-02] MEDS: Ascorbic Acid 500 mg Chewable Tablet PO SCH (09:15)
[2018-09-02] MEDS: Fluticasone Propionate Nasal Spray 16 gm Bottle NASAL SCH (09:15)
[2018-09-02] MEDS: Cyanocobalamin (Vitamin B-12) 1,000 MCG TAB PO SCH (09:21)
[2018-09-02] MEDS: Lactinex Tablet PO SCH ×3 (09:21→21:45)
[2018-09-02] MEDS: Fluconazole In NaCl,Iso-Osm 100 MG in Premix Bag 1 BAG IVPB SCH (09:54)
--- NOTE | 2018-09-02 10:40 | PQF ---
DATE: 09-02-18 ATTN: DR. TANYA GONZALEZ Please exercise your independent, professional judgment in responding to the clarification form. Clinical indicators are provided on the bottom of this form for your review Please check appropriate box(s): HEART FAILURE: A. TYPE: [ ] Systolic / HFrEF [ x ] Diastolic / HFpEF [ ] Combined Systolic / Diastolic B. ACUITY [ ] Acute [ ] Acute on Chronic [x ] Chronic [ ] Other diagnosis [ ] Unable to determine In addition, please specify: Present on Admission (POA): [ x ] Yes [ ] No [ ] Unable to determine For continuity of documentation, please document condition throughout progress notes and discharge summary. Thank You. CLINICAL INDICATORS - SIGNS / SYMPTOMS / LABS H&P: CHRONIC DIASTOLIC CONGESTIVE HEART FAILURE. WE WILL HOLD HER TORSEMIDE IN THE LIGHT\ OF ACUTE RENAL INSUFF FOR NOW. CONSULT NOTE DR. HUTCHINSON 08-31-18: DIASTOLIC CONGESTIVE HEART FAILURE, VOLUME OVERLOAD, HOLD DIURETICS FOR NOW, WE WILL NEED TO RESUME DIURETICS SOON.. WE NEED TO TRY TO BALANCE THE AMOUNT OF DIURETICS OUT TO CONTROL THE PERIPHERAL EDEMA CONSULT NOTE DR. HUTCHINSON 09-01-18: DIASTOLIC HEART FAILURE, BECOMING VOLUME OVERLOAD, NEED TO RESUME TORSEMIDE AT LEAST 20MG A DAY. WE ARE ALSO GOING TO HAVE A REALLY SEVERE VOLUME OVERLOAD. RISKS: H&P: CHRONIC DIASTOLIC CONGESTIVE HEAR FAILURE, HTN, FAUSTINO ON CPAP, CKD 3 TREATMENTS: CONSULT NOTE DR. HUTCHINSON 08-31-18: HOLD DIURETICS FOR NOW, WE WILL NEED TO RESUME DIURETICS SOON. CONSULT NOTE DR. HUTCHINSON 09-01-18: NEED TO RESUME TORSEMIDE AT LEAST 20MG A DAY. (This form is maintained as a part of the permanent medical record) 2014 [employer]. All Rights Reserved DARY [email or web address] Office: [phone] [facility]
[2018-09-02] MEDS ORDERED: hydrALAZINE 20 MG/ML VIAL SLOW IVP PRN (12:54)
[2018-09-02] MEDS ORDERED: Olmesartan 5 MG TAB PO SCH (13:00)
[2018-09-02] MEDS: Warfarin Sodium 3 MG TAB PO SCH (16:02)
--- NOTE | 2018-09-02 17:36 | PDOC.PN ---
- Subjective Encounter Start Date: 09/02/18 Encounter Start Time: 09:00 Patient seen and examined for Sepsis. No new complaints. No overnight events - Objective MAR Reviewed: Yes Vital Signs & Weight: Vital Signs (12 hours) Temp Pulse Resp BP BP Pulse Ox 09/02/18 12:13 98.6 F 84 18 146/65 H 146/65 H 95 09/02/18 08:00 97.6 F 76 20 101/52 L 96 09/02/18 07:33 97.6 F 76 20 101/52 L 96 Weight Admit Weight 197 lb 7 oz Weight 211 lb I&O: 09/01/18 09/02/18 09/03/18 06:59 06:59 06:59 Intake Total 1130 1620 Output Total 100 Balance 1130 1520 Result Diagrams: 09/02/18 05:26 09/02/18 05:26 Phys Exam - Physical Examination Constitutional: NAD Respiratory: no wheezing, no rhonchi Cardiovascular: RRR, no rub Gastrointestinal: soft, positive bowel sounds Musculoskeletal: edema present Dx/Plan - Plan 1. Sepsis with acute organ dysfunction, secondary to left lower extremity cellulitis/Pseudomonas bacteremia 2. Lactic acidosis, secondary to sepsis. improved 3. Chronic venous thromboembolism, on anticoagulation. INR 2.6 4. Left lateral lower leg wound, followed by Dr. Zaragoza - has wound VAC. 5. Chronic kidney disease, stage 3, with chronically left atrophic kidney. 6. Chronic diastolic CHF exacerbation. ACC stage C 7. Obstructive sleep apnea, on CPAP. 8. Hypertension. 9. Chronic lymphedema. 10. Degenerative joint disease. 11. Chronic anemia. PLAN: Cont current Atbx as below Cont wound care Cont current meds as below CBC/INR/BMP in AM Restart Benicar Review of Systems - Review of Systems Respiratory: negative: Cough, Dry, Shortness of Breath, Hemoptysis, SOB with Excertion, Pleuritic Pain, Sputum, Wheezing Cardiovascular: negative: chest pain, palpitations, orthopnea, paroxysmal nocturnal dyspnea, edema, light headedness, other - Medications/Allergies Allergies/Adverse Reactions: Allergies Allergy/AdvReac Type Severity Reaction Status Date / Time Penicillins Allergy Unknown Verified 06/04/18 18:32 adhesive tape Allergy Verified 08/30/18 23:58 nitrofurantoin Allergy Verified 06/04/18 18:33 [From Macrobid] sulfamethoxazole Allergy Verified 06/04/18 18:33 [From Bactrim] trimethoprim [From Bactrim] Allergy Verified 06/15/18 21:18 Medications: Current Medications Acetaminophen (Tylenol) 650 mg PO Q4H PRN PRN Reason: Headache/Fever/Mild Pain (1-3) Last Admin: 09/02/18 13:53 Dose: 650 mg Hydrocodone Bitart/Acetaminophen ([place] 10/325) 1 tab PO Q4H PRN PRN Reason: Severe Pain (7-10) Last Admin: 08/31/18 22:16 Dose: 1 tab Acidophilus (Floranex) 1 tab PO TID [facility] Last Admin: 09/02/18 16:02 Dose: 1 tab Albuterol Sulfate (Ventolin) 2.5 mg NEB Q6H PRN PRN Reason: SOB &/or Wheezing Allopurinol (Zyloprim) 100 mg PO 0900 [facility] Last Admin: 09/02/18 09:14 Dose: 100 mg Ascorbic Acid (Vitamin C) 1,000 mg PO 0900 [facility] Last Admin: 09/02/18 09:15 Dose: 1,000 mg Benzonatate (Tessalon) 100 mg PO TIDPRN PRN PRN Reason: Cough Bisacodyl (Dulcolax) 10 mg PO DAILYPRN PRN PRN Reason: Constipation Calcium Carbonate (Tums) 1,000 mg PO Q4H PRN PRN Reason: Heartburn or Indigestion Clonidine (Catapres) 0.1 mg PO Q4H PRN PRN Reason: SBP >160 Cyanocobalamin (Vitamin B-12) 1,000 mcg PO 0900 [facility] Last Admin: 09/02/18 09:21 Dose: 1,000 mcg Docusate Sodium (Colace) 100 mg PO BID [facility] Last Admin: 09/02/18 09:13 Dose: 100 mg Duloxetine HCl (Cymbalta) 60 mg PO 0900 [facility] Last Admin: 09/02/18 09:13 Dose: 60 mg Estradiol (Estrace 0.01% Vaginal Cream) 2 gm VAG 2100 [facility] Last Admin: 09/01/18 20:22 Dose: 2 gm Ferrous Sulfate (Feosol) 325 mg PO BID [facility] Last Admin: 09/02/18 09:13 Dose: 325 mg Fluticasone Propionate (Flonase Nasal [place]) 0 gm NASAL DAILY [facility] Last Admin: 09/02/18 09:15 Dose: 2 spr Gabapentin (Neurontin) 100 mg PO 0900 [facility] Last Admin: 09/02/18 09:12 Dose: 100 mg Gabapentin (Neurontin) 200 mg PO 2100 [facility] Last Admin: 09/01/18 20:13 Dose: 200 mg Guaifenesin (Robitussin Sf) 200 mg PO Q4H PRN PRN Reason: Cough Hydralazine HCl (Apresoline) 10 mg SLOW IVP Q4H PRN PRN Reason: SBP > 180 and HR < 70 Hydralazine HCl (Apresoline) 5 mg SLOW IVP Q4H PRN PRN Reason: SBP Greater Than 180 Vancomycin HCl 1 gm/ Device 200 mls @ 200 mls/hr IVPB 2200 [facility] Last Admin: 09/01/18 21:38 Dose: 200 mls Fluconazole/Sodium Chloride (100 mg/ Device) 50 mls @ 100 mls/hr IVPB DAILY [facility] Last Admin: 09/02/18 09:54 Dose: 50 mls Cefepime HCl 1 gm/ Sodium (Chloride) 100 mls @ 200 mls/hr IVPB Q24HR@1800 [facility] Last Admin: 09/01/18 17:49 Dose: 100 mls Magnesium Oxide (Magnesium Oxide) 400 mg PO BID [facility] Last Admin: 09/02/18 09:14 Dose: 400 mg Melatonin (Melatonin) 9 mg PO HS [facility] Last Admin: 09/01/18 20:15 Dose: 9 mg Miscellaneous Medication (Pharmacy To Dose) 1 each PO PRN PRN PRN Reason: HX DVT/PE Miscellaneous Medication (Pharmacy To Dose) 1 each IVPB PRN PRN PRN Reason: SEPSIS Miscellaneous Medication (Pharmacy To Dose) 1 each IVPB PRN PRN PRN Reason: Pharmacy to dose Multivitamins (Theragran) 1 tab PO DAILY [facility] Last Admin: 09/02/18 09:14 Dose: 1 tab Nystatin (Mycostatin Powder) 0 gm TOP BID PRN PRN Reason: yeast infection Olmesartan (Benicar) 10 mg PO BID [facility] Ondansetron HCl (Zofran) 4 mg IVP Q6H PRN PRN Reason: Nausea/Vomiting Pantoprazole Sodium (Protonix) 40 mg PO 0900 [facility] Last Admin: 09/02/18 09:17 Dose: 40 mg Senna/Docusate Sodium (Senokot S) 2 tab PO BID PRN PRN Reason: Constipation Torsemide (Demadex) 20 mg PO DAILY [facility] Last Admin: 09/02/18 09:12 Dose: 20 mg Tramadol HCl (Ultram) 50 mg PO Q4H PRN PRN Reason: Moderate Pain (4-6) Last Admin: 09/02/18 13:53 Dose: 50 mg Warfarin Sodium (Coumadin) 3 mg PO 1700 [facility] Last Admin: 09/02/18 16:02 Dose: 3 mg Zinc Sulfate (Zinc Sulfate) 220 mg PO 0900 [facility] Last Admin: 09/02/18 09:12 Dose: 220 mg
[2018-09-02] MEDS: Cefepime 1 GM in Sodium Chloride 0.9% 100 ML IVPB SCH (18:22)
--- NOTE | 2018-09-02 19:24 | PRG ---
DATE OF SERVICE: 09/02/2018 SUBJECTIVE: Patient was seen and examined at bedside and overnight events noted. Patient denies any shortness of breath or chest pain or palpitation. No history of nausea or vomitin g or diarrhea or fever or chills or cramps. OBJECTIVE: GENERAL: This is an elderly female, in no acute distress VITAL SIGNS: Temperature , pulse 84, respiratory rate 18, blood pressure 146/65. HEENT: Atraumatic, normocephalic, Oral mucosa is moist. NECK: Supple. CARDIOVASCULAR: S1, S2 heard, Rate and rhythm regular. RESPIRATORY: Clear to auscultation. GASTROINTESTINAL: Abdomen is soft. MUSCULOSKELETAL: No tenderness, No edema. DERMATOLOGIC: No skin rash. NEUROLOGIC: Alert and awake and oriented x3. No focal neurologic deficits. Moving all the extremit ies. PSYCHIATRIC: Mood and affect normal. LABORATORY DATA: Potassium is 4.4, BUN is 87, creatinine is 1.4. ASSESSMENT AND PLAN: 1. Acute kidney injury on chronic kidney disease stage 3, stable. 2. Azotemia getting better, most likely from protein supplements. Agree with holding it while inpat ient. 3. . 4. Obesity. 5. Hyperkalemia. 6. Lymphedema. 7. Restarted on torsemide. We will monitor and will follow.
[2018-09-02] MEDS: HYDROcodone/Acetaminophen 10/325 mg Tablet PO PRN (21:40)
[2018-09-02] MEDS: Melatonin 3 MG TAB PO SCH (21:45)
[2018-09-02] MEDS: Vancomycin HCl 1 GM in Premix Bag 1 BAG IVPB SCH (21:50)
[2018-09-03] MEDS: traMADol HCl 50 MG TAB PO PRN ×2 (01:05→07:35)
[2018-09-03] MEDS: Olmesartan 5 MG TAB PO SCH ×2 (01:52→07:51)
[2018-09-03] MEDS: Estradiol 0.01% Vaginal Cream 42.5 gm Tube VAG SCH (02:01)
[2018-09-03 05:54] VITALS: BMI 36.1
[2018-09-03 06:27] LABS: INR-International Normal Ratio 2.5; Prothrombin Time 26.7 SEC (12.0-14.7)
[2018-09-03 06:32] LABS: Anion Gap 13 mmol/L (10-20); BUN (Urea Nitrogen) 63 mg/dL (9.8-20.1); Calc. Creatinine Clearance 45 mL/min (70-130); Calcium 9.8 mg/dL (7.8-10.44); Carbon Dioxide 31 mmol/L (23-31); Chloride 95 mmol/L (98-107); Estimated GFR-MDRD 34; Glucose 95 mg/dL (83-110); Magnesium 2.1 mg/dL (1.6-2.6); Potassium 4.2 mmol/L (3.5-5.1); Sodium 135 mmol/L (136-145)
[2018-09-03] MEDS: Acetaminophen 325 MG TAB PO PRN (07:35)
[2018-09-03] MEDS: Zinc Sulfate 220 MG CAP PO SCH (07:51)
[2018-09-03] MEDS: Torsemide 20 MG TAB PO SCH (07:52)
[2018-09-03] MEDS: Gabapentin 100 MG CAP PO SCH (07:53)
[2018-09-03] MEDS: DULoxetine 60 MG CAP PO SCH (07:53)
[2018-09-03] MEDS: Allopurinol 100 MG TAB PO SCH (07:54)
[2018-09-03] MEDS: Cyanocobalamin (Vitamin B-12) 1,000 MCG TAB PO SCH (07:54)
[2018-09-03] MEDS: Docusate 100 MG CAP PO SCH (07:55)
[2018-09-03] MEDS: Multivit, Therapeutic 1 TAB PO SCH (07:56)
[2018-09-03] MEDS: Fluticasone Propionate Nasal Spray 16 gm Bottle NASAL SCH (07:57)
--- NOTE | 2018-09-03 07:58 | PRG ---
DATE OF SERVICE: 09/02/2018 SUBJECTIVE: She is feeling better, less pain. No respiratory symptoms, abdominal pain or diarrhea. OBJECTIVE: VITAL SIGNS: T-max 98.9. Other vital signs are normal. GENERAL: Awake, alert, oriented. LUNGS: Clear. CARDIOVASCULAR: S1, S2, regular rate. ABDOMEN: Soft. Still with mild to moderate erythema and circumferential distribution in the lower e xtremities associated with the left leg and the wound with negative pressure dressing. LABORATORY DATA: White cell count 7.4, hemoglobin 9.5, platelets 369, creatinine 1.46, sodium 135. Microbiology with Pseudomonas aeruginosa with a broad susceptibility performed. ASSESSMENT AND DISCUSSION: Lymphoma in remission, prior deep venous thrombosis, pulmonary embolism o n Coumadin, hematoma on left leg with surgical debridement, chronic wound management, cellulitis of l ower extremities on the right and left side with marked neutrophilia and Pseudomonas aeruginosa bacte remia and wound infection. The patient eventually can be transitioned to oral ciprofloxacin for disc harge planning. Continue treatment for approximately 2 weeks for continue wound care. Other sites o f involvement are not apparent at this point in time.
[2018-09-03 08:00] VITALS: BP 148/65; TEMP 98.1
[2018-09-03] MEDS: Fluconazole In NaCl,Iso-Osm 100 MG in Premix Bag 1 BAG IVPB SCH (09:30)
[2018-09-03] MEDS: Lactinex Tablet PO SCH (09:31)
[2018-09-03] MEDS: Ferrous Sulfate 325 MG TAB PO SCH (09:31)
[2018-09-03] MEDS: Ascorbic Acid 500 mg Chewable Tablet PO SCH (09:31)
[2018-09-03] MEDS: Magnesium Oxide 400 MG TAB PO SCH (09:31)
[2018-09-03] MEDS ORDERED: Cefepime 1 GM in Sodium Chloride 0.9% 100 ML IVPB SCH (09:45)
--- NOTE | 2018-09-03 18:29 | PRG ---
DATE OF SERVICE: 09/03/2018 SUBJECTIVE: Patient was seen and examined at bedside and overnight events noted. Patient denies any shortness of breath or chest pain or palpitation. No history of nausea or vomiting or diarrhea or f ever or chills or cramps. OBJECTIVE: GENERAL: This is an obese female in no apparent distress. VITAL SIGNS: Temperature 98.1, pulse 89, respiratory rate 18, blood pressure 148/65. HEENT: Atraumatic, normocephalic. Oral mucosa is moist. NECK: Supple. CARDIOVASCULAR: S1, S2 heard. Rate and rhythm regular. RESPIRATORY: Clear to auscultation. GASTROINTESTINAL: Abdomen is soft. MUSCULOSKELETAL: No tenderness. No edema. DERMATOLOGIC: No skin rash. NEUROLOGIC: Alert and awake and oriented x3. No focal neurologic deficits. Moving all the extremiti es. PSYCHIATRIC: Mood and affect normal. LABORATORY DATA: Potassium is 4.2, BUN 63, creatinine 1.4. ASSESSMENT AND PLAN: 1. Acute kidney injury on chronic kidney disease stage 3. Renal function is stable. 2. Edema, controlled. 3. Azotemia better. 4. Lymphedema. 5. Hyperkalemia. Labs are stable. Okay to discharge from Nephrology standpoint.
--- NOTE | 2018-09-04 07:15 | DIS ---
DATE OF DISCHARGE: 09/03/2018 DISCHARGE DISPOSITION: Home with home health care. FOLLOWUP: Follow up with primary care physician, Dr. Briggs in 1 week. Follow up with Dr. Cai in 2 weeks. Follow up with Dr. Alejo in 2-3 weeks. Follow up with Nephrology, Dr. Barron in 2-3 wee ks. A repeat base met, daily INR while on Cipro. Weekly CBC, CMP, and CRP. INPATIENT CONSULTANTS: 1. Nephrology, Dr. Barron. 2. Infectious Disease, Dr. Cai. 3. Cardiology, Dr. Alejo. BRIEF HOSPITAL COURSE: The patient is an 82-year-old female with chronic left lower extremity wound with recent episode of cellulitis, presented to the hospital with a fever. Please refer to the histo ry and physical dated 09/06/[address] Longo for further details. The patient was admitted to the hospital with a diagnosis of sepsis. She was started on broad spectr um antibiotics. A blood culture 2 of 2 was positive for Pseudomonas aeruginosa sensitive to ciproflo xacin. Wound culture was also positive for the same organism. She was placed on cefepime and vancom ycin that has been switched to ciprofloxacin at discharge. Her WBC count on admission was 24.5 and a t discharge was 7.4. Her INR on the day of discharge is 2.5. Due to chronic congestive heart failur e, the patient was seen by Dr. Alejo. Torsemide has been resumed. She was also evaluated by Nephro logy due to significantly elevated BUN up to 157 prior to hospitalization. Her BUN at discharge is 6 3. High protein intake is probably contributing to her BUN as well. She has been cleared by consult ants for discharge. Lactic acid on admission was 2.6 that improved to 1.6 next day. FINAL DIAGNOSES: 1. Sepsis with acute organ dysfunction secondary to left lower extremity cellulitis with Pseudomonas aeruginosa bacteremia. 2. Lactic acidosis, resolved. 3. Chronic venous thromboembolism, on anticoagulation. 4. Left lateral lower extremity wound secondary to a hematoma earlier this year, followed by Irma cee. She currently has wound VAC. 5. Chronic kidney disease stage 3. 6. Chronically left atrophic kidney. 7. Chronic diastolic heart failure. 8. Obstructive sleep apnea, on CPAP. 9. Hypertension. 10. Chronic lymphedema. 11. Degenerative joint disease. 12. Chronic anemia. Plan of care was discussed with the patient in detail. She stated understanding.
== END 2018-09-03 13:22 | disposition home health service (06) | DRG 872 ==
LOC: ERS 21:24 → 2NO 22:40 → ONC 08-31 22:39
PROVIDERS: ADMIT Internal Medicine; ATTEND Internal Medicine
PROC: 5A09457 Assistance with Respiratory Ventilation, 24-96 Consecutive Hours, Continuous Positive Airway Pressure (ICD-10-PCS; principal; 2018-08-30)
DX: A41.52 Sepsis due to Pseudomonas (principal); L03.116 Cellulitis of left lower limb; E87.2 Acidosis; I82.91 Chronic embolism and thrombosis of unspecified vein; I13.0 Hypertensive heart and chronic kidney disease with heart failure and stage 1 through stage 4 chronic kidney disease, or unspecified chronic kidney disease; I50.32 Chronic diastolic (congestive) heart failure; N17.9 Acute kidney failure, unspecified; E87.1 Hypo-osmolality and hyponatremia; R65.20 Severe sepsis without septic shock; B96.5 Pseudomonas (aeruginosa) (mallei) (pseudomallei) as the cause of diseases classified elsewhere; Z79.01 Long term (current) use of anticoagulants; N18.3 Chronic kidney disease, stage 3 (moderate); G47.33 Obstructive sleep apnea (adult) (pediatric); I89.0 Lymphedema, not elsewhere classified; M19.90 Unspecified osteoarthritis, unspecified site; D63.8 Anemia in other chronic diseases classified elsewhere; Z85.71 Personal history of Hodgkin lymphoma; Z92.21 Personal history of antineoplastic chemotherapy; Z88.0 Allergy status to penicillin; Z91.040 Latex allergy status; E87.5 Hyperkalemia; E88.09 Other disorders of plasma-protein metabolism, not elsewhere classified; E66.9 Obesity, unspecified; Z68.36 Body mass index [BMI] 36.0-36.9, adult; Z96.651 Presence of right artificial knee joint; E87.8 Other disorders of electrolyte and fluid balance, not elsewhere classified
CPT/HCPCS: 36415; 51701; 71045; 80048; 80053; 80202; 81003; 81015; 83605; 83735; 85025; 85610; 85730; 87040; 87070; 87077; 87086; 87149; 87186; 87205; 87804; 96365; 96375; 96376; A4353; G8978-GP-CM; G8979-GP-CL; G8987-GO-CL; G8988-GO-CK; J0692; J0696; J1450; J3010; J3370; J7050

== ENCOUNTER 2018-09-14 13:28 | Outpatient (CLI) | payer MEDICARE ==
--- NOTE | 2018-09-14 15:09 | PRG ---
DATE OF SERVICE: 09/14/2018 HISTORY: Ms. Dodie Trinidad is a very pleasant 82-year-old accompanied by her daughter who presents to the [facility] for evaluation of a large wound of the left lateral lower leg subsequent to inci karin and drainage of a left leg hematoma on 06/06/[address] Robinson Baez. Negative pressure ther apy was initiated subsequent to surgery and the patient has been receiving dressing changes of the wo und VAC 3 times per week with the assistance of Home Health. The patient has been evaluated by Dr. José Luis Kasper for skin graft placement which the patient declined. Presently, the patient is receiving treatment with MatriStem sheet in conjunction with negative pressure therapy. PHYSICAL EXAMINATION: VITAL SIGNS: Temperature 98.1, pulse 89, respirations 21, blood pressure 149/67. EXTREMITIES: A large wound of the left lateral lower leg is present which measures approximately 17. 0 x 7.8 cm. The dimensions of the wound at the time of the patient's visit on 08/24/2018 were approx imately 16.5 x 6.0 cm. Granulation tissue is present within the wound margins. No purulent drainage is associated with the wound. No cellulitis of the left lower leg is appreciated. No maceration of the skin of the periwound is noted. Hilum matrix was applied to the wound bed followed by Mepitel, ABDs, Webril, and the 3M Coban 2 layer compression system. The silicone layer of the Hyalomatrix was fenestrated prior to its application to the wound bed with the silicone layer facing outwards. Deep a of the left foot and lower leg is again noted on today's exam. ASSESSMENT AND PLAN: 1. Chronic venous hypertension with ulceration. Hyalomatrix was applied to the wound bed of the [facility] eration today. Orders will be transmitted to Home Health for a dressing change of Mepitel, ABDs, Web ril, and the 3M Coban 2 layer compression system in 1 week. A dressing change will also be performed as needed for drainage saturating all layers of the compression wrap. I will see Ms. Trinidad again in 1-2 weeks. The patient is presently taking ciprofloxacin after admission to [facility] for cellulitis. 2. Osteoarthritis. 3. History of non-Hodgkin's lymphoma status post chemotherapy with bleomycin and radiation therapy i n 1992. 4. History of pulmonary embolus. 5. Chronic lymphedema. 6. Hypertension. 7. Obstructive sleep apnea. 8. History of deep venous thrombosis. 9. Left atrophic kidney. 10. Chronic kidney disease. 11. Right hydronephrosis. 12. Congestive heart failure. 13. Anemia.
== END 2018-09-14 13:29 | disposition home or self-care (01) ==
LOC: WCC 13:28
PROVIDERS: ATTEND Family Medicine
DX: I87.312 Chronic venous hypertension (idiopathic) with ulcer of left lower extremity (principal); L97.829 Non-pressure chronic ulcer of other part of left lower leg with unspecified severity; I89.0 Lymphedema, not elsewhere classified; M19.90 Unspecified osteoarthritis, unspecified site; I13.0 Hypertensive heart and chronic kidney disease with heart failure and stage 1 through stage 4 chronic kidney disease, or unspecified chronic kidney disease; I50.9 Heart failure, unspecified; N18.9 Chronic kidney disease, unspecified; D63.1 Anemia in chronic kidney disease; N13.30 Unspecified hydronephrosis; N26.1 Atrophy of kidney (terminal); G47.33 Obstructive sleep apnea (adult) (pediatric); Z86.718 Personal history of other venous thrombosis and embolism; Z86.711 Personal history of pulmonary embolism; Z85.72 Personal history of non-Hodgkin lymphomas
CPT/HCPCS: A4218; C5271; Q4117

== ENCOUNTER 2018-09-23 14:40 | Outpatient (CLI) | payer MEDICARE ==
--- NOTE | 2018-09-23 17:15 | PRG ---
DATE OF SERVICE: 09/23/2018 SUBJECTIVE: Ms. Dodie Trinidad is a very pleasant 82-year-old accompanied by her daughter, who presents to the Wound Center for evaluation of a large wound of the left lateral lower leg subsequent to incision and drainage of a left leg hematoma on 06/06/[address] Robinson Baez. Negative pressure therapy was initiated subsequent to surgery, and the patient received dressing changes of the wound VAC three times per week with the assistance of Home Health. The patient has been evaluated by Dr. Robin Kasper for skin graft placement, which the patient declined. Currently, the patient is receiving treatment with Hyalomatrix. Recently, the patient received treatment with MatriStem sheet in conjunction with negative pressure therapy. PHYSICAL EXAMINATION: VITAL SIGNS: Temperature 98.1, pulse 88, respirations 17, and blood pressure 159/70. EXTREMITIES: A large wound of the left lateral lower leg is present, which measures approximately 17.0 x 11.0 cm. Granulation tissue is present within the wound margins. No purulent drainage is associated with the wound. No cellulitis of the left lower leg is appreciated. No maceration of the skin of the periwound is noted. Hyalomatrix was applied to the wound bed followed by Mepitel, ABDs, Webril, and a 3M Coban two layer compression System. The silicone layer of the Hyalomatrix was fenestrated prior to its application to the wound bed with the silicone layer facing outwards. Edema of the left foot and lower leg is again noted on today's exam. The silicone layer of the Hyalomatrix applied at the time of the patient's visit on 09/14/2018, was discontinued prior to application of the secondary dressings. ASSESSMENT AND PLAN: 1. Chronic venous hypertension with ulceration. Hyalomatrix was applied to the wound bed of the ulceration today. Orders will be transmitted to Home Health for a dressing change of Mepitel, ABDs, Webril, and a 3M Coban two layer compression system as needed for drainage, saturating all layers of the compression wrap. I will see Ms. Trinidad again in one week. 2. Osteoarthritis. 3. History of non-Hodgkin's lymphoma, status post chemotherapy with bleomycin and radiation therapy in 1992. 4. History of pulmonary embolus. 5. Chronic lymphedema. 6. Hypertension. 7. Obstructive sleep apnea. 8. History of deep venous thrombosis. 9. Left atrophic kidney. 10. Chronic kidney disease. 11. Right hydronephrosis. 12. Congestive heart failure. 13. Anemia. Job ID: [id number]
== END 2018-09-23 14:41 | disposition home or self-care (01) ==
LOC: WCC 14:40
PROVIDERS: ATTEND Family Medicine
DX: I87.312 Chronic venous hypertension (idiopathic) with ulcer of left lower extremity (principal); L97.929 Non-pressure chronic ulcer of unspecified part of left lower leg with unspecified severity; M19.90 Unspecified osteoarthritis, unspecified site; I89.0 Lymphedema, not elsewhere classified; I13.0 Hypertensive heart and chronic kidney disease with heart failure and stage 1 through stage 4 chronic kidney disease, or unspecified chronic kidney disease; I50.9 Heart failure, unspecified; N18.9 Chronic kidney disease, unspecified; D63.1 Anemia in chronic kidney disease; G47.33 Obstructive sleep apnea (adult) (pediatric); N26.1 Atrophy of kidney (terminal); N13.30 Unspecified hydronephrosis; Z86.718 Personal history of other venous thrombosis and embolism; Z86.711 Personal history of pulmonary embolism; Z85.72 Personal history of non-Hodgkin lymphomas
CPT/HCPCS: Q4117

== ENCOUNTER 2018-10-01 14:15 | Outpatient (CLI) | payer MEDICARE ==
--- NOTE | 2018-10-01 16:33 | PRG ---
DATE OF SERVICE: 10/01/2018 HISTORY: Ms. Dodie Trinidad is a very pleasant 82-year-old accompanied by her daughter who presents to the Wound Center for evaluation of a large wound of the left lateral lower leg subsequent to incision and drainage of a left leg hematoma on 06/06/2018, by Dr. Robinson Baez. Negative pressure therapy was initiated subsequent to surgery, and the patient received dressing changes of the wound VAC three times per week with the assistance of home health. The patient has been evaluated by Dr. Robin Kasper for skin graft placement, which the patient declined. Presently, the patient is receiving treatment with Hyalomatrix. The patient recently received treatment with MatriStem sheet in conjunction with negative pressure therapy. PHYSICAL EXAMINATION: VITAL SIGNS: Pulse 89, respirations 17, blood pressure 154/70. EXTREMITIES: A large wound of the left lateral lower leg is present, which measures approximately 19.0 x 10.5 cm. Granulation tissue was present within the wound margins. No purulent drainage is associated with the wound. No cellulitis of the left lower leg is appreciated. No maceration of the skin of the periwound is noted. A portion of the Hyalomatrix applied at the time of the patient's last visit has a green discoloration. Lymphedema of the left foot and lower leg is again noted on exam today. ASSESSMENT AND PLAN: 1. Chronic venous hypertension with ulceration. Orders will be transmitted to Home Health for dressing changes of Mepitel, ABDs, Webril, and Armen bandages three times per week and as needed after cleansing and irrigation. The patient has been placed on ciprofloxacin 250 mg #20 one p.o. b.i.d. x10 days. I will see Ms. Trinidad again in one week. Antibiotic therapy will be modified based upon the results of tissue cultures obtained today. After irrigation of the wound bed, a sample of granulation tissue was obtained with the use of scissors and sent for aerobic and anaerobic cultures. 2. Osteoarthritis. 3. History of non-Hodgkin lymphoma status post chemotherapy with bleomycin and radiation therapy in 1992. 4. History of pulmonary embolus. 5. Chronic lymphedema. 6. Hypertension. 7. Obstructive sleep apnea. 8. History of deep venous thrombosis. 9. Left atrophic kidney. 10. Chronic kidney disease. 11. Right hydronephrosis. 12. Congestive heart failure. 13. Anemia. Job ID: [id number]
== END 2018-10-01 14:16 | disposition home or self-care (01) ==
LOC: WCC 14:15
PROVIDERS: ATTEND Family Medicine
DX: I87.312 Chronic venous hypertension (idiopathic) with ulcer of left lower extremity (principal); L97.929 Non-pressure chronic ulcer of unspecified part of left lower leg with unspecified severity; M19.90 Unspecified osteoarthritis, unspecified site; G47.33 Obstructive sleep apnea (adult) (pediatric); I89.0 Lymphedema, not elsewhere classified; I13.0 Hypertensive heart and chronic kidney disease with heart failure and stage 1 through stage 4 chronic kidney disease, or unspecified chronic kidney disease; I50.9 Heart failure, unspecified; N18.9 Chronic kidney disease, unspecified; D63.1 Anemia in chronic kidney disease; N13.30 Unspecified hydronephrosis; N26.1 Atrophy of kidney (terminal); Z86.718 Personal history of other venous thrombosis and embolism; Z86.711 Personal history of pulmonary embolism; Z85.72 Personal history of non-Hodgkin lymphomas
CPT/HCPCS: 87070; 87077; 87186; 87205; A4218

== ENCOUNTER 2018-10-07 14:07 | Outpatient (CLI) | payer MEDICARE ==
[2018-10-07] MEDS ORDERED: Sodium Chloride 0.9% 15 ML NEB ONE (15:00)
--- NOTE | 2018-10-07 16:06 | PRG ---
DATE OF SERVICE: 10/07/2018 HISTORY: Ms. Dodie Trinidad is a very pleasant 83-year-old, accompanied by her daughter, who presents to the Wound Center for evaluation of a large wound of the left lateral lower leg subsequent to incision and drainage of a left leg hematoma on 06/06/[address] Robinson Baez. Negative pressure therapy was initiated subsequent to surgery, and the patient received dressing changes of the wound VAC 3 times per week with the assistance of home health. The patient has been evaluated by Dr. Robin Kasper for skin graft placement, which the patient declined. The patient also received treatment with Hyalomatrix. Prior to treatment with Hyalomatrix, the patient received MatriStem sheet in conjunction with negative pressure therapy. PHYSICAL EXAMINATION: VITAL SIGNS: Temperature 97.9, pulse 85, respirations 19, and blood pressure 177/72. EXTREMITIES: A large wound of the left lateral lower leg is present, which measures approximately 17.7 x 11.0 cm. Granulation tissue is present within the wound margins. No purulent drainage is associated with the wound. Erythema of the left lower leg is present, which may be secondary to stasis changes versus an inflammatory process. No maceration of the skin of the periwound is noted. Lymphedema of the left foot and lower leg is again noted on exam today. ASSESSMENT AND PLAN: 1. Chronic venous hypertension with ulceration. Orders will be transmitted to Home Health for dressing changes of Mepitel, ABDs, Webril, and Armen bandages 3 times per week and as needed after cleansing and irrigation. The patient has been given a prescription for ciprofloxacin 500 mg #20 one p.o. b.i.d. x10 days. I will see Ms. Trinidad again in 1 week. The patient will also begin utilizing her lymphedema wraps over the left foot and lower leg. 2. Osteoarthritis. 3. History of non-Hodgkin lymphoma, status post chemotherapy with bleomycin and radiation therapy in 1992. 4. History of pulmonary embolus. 5. Chronic lymphedema. 6. Hypertension. 7. Obstructive sleep apnea. 8. History of deep venous thrombosis. 9. Left atrophic kidney. 10. Chronic kidney disease. 11. Right hydronephrosis. 12. Congestive heart failure. 13. Anemia. Job ID: [id number]
== END 2018-10-07 14:08 | disposition home or self-care (01) ==
LOC: WCC 14:07
PROVIDERS: ATTEND Family Medicine
DX: I87.312 Chronic venous hypertension (idiopathic) with ulcer of left lower extremity (principal); L97.929 Non-pressure chronic ulcer of unspecified part of left lower leg with unspecified severity; M19.90 Unspecified osteoarthritis, unspecified site; I89.0 Lymphedema, not elsewhere classified; I13.0 Hypertensive heart and chronic kidney disease with heart failure and stage 1 through stage 4 chronic kidney disease, or unspecified chronic kidney disease; I50.9 Heart failure, unspecified; N18.9 Chronic kidney disease, unspecified; D63.1 Anemia in chronic kidney disease; G47.33 Obstructive sleep apnea (adult) (pediatric); N26.1 Atrophy of kidney (terminal); N13.30 Unspecified hydronephrosis; Z86.711 Personal history of pulmonary embolism; Z86.718 Personal history of other venous thrombosis and embolism; Z85.71 Personal history of Hodgkin lymphoma
CPT/HCPCS: 97602; A4218

== ENCOUNTER 2018-10-14 14:34 | Outpatient (CLI) | payer MEDICARE ==
[2018-10-14] MEDS ORDERED: Sodium Chloride 0.9% 15 ML NEB ONE (15:00)
[2018-10-14] MEDS ORDERED: Lidocaine 2% PF 100 mg/5 ml Syringe ONE (15:00)
--- NOTE | 2018-10-14 16:21 | PRG ---
DATE OF SERVICE: 10/14/2018 SUBJECTIVE: Ms. Dodie Trinidad is a very pleasant 83-year-old, accompanied by her daughter, who presents to the Wound Center for evaluation of a large wound of the left lateral lower leg subsequent to incision and drainage of a left leg hematoma on 06/06/[address] Robinson Baez. Negative pressure therapy was initiated subsequent to surgery, and the patient received dressing changes of the wound VAC 3 times per week with the assistance of Home Health. The patient has been evaluated by Dr. Robin Kasper for skin graft placement which the patient declined. The patient also received treatment with Hyalomatrix. Prior to treatment with Hyalomatrix, the patient received MatriStem sheet in conjunction with negative pressure therapy. OBJECTIVE: VITAL SIGNS: Temperature 98.0, pulse 88, respirations 19, blood pressure 145/62. EXTREMITIES: A large wound of the left lateral lower leg is present which measures approximately 17.5 x 8.5 cm. The dimensions of the wound at the time of the patient's last visit were approximately 17.7 x 11.0 cm. Granulation tissue is present within the wound margins. No purulent drainage is associated with the wound. No cellulitis of the left lower leg is appreciated. No maceration of the skin of the periwound is noted. Lymphedema of the left foot and lower leg is again noted on today's exam. ASSESSMENT AND PLAN: 1. Chronic venous hypertension with ulceration. Orders will be transmitted to Home Health for dressing changes of Mepitel, ABDs, Webril, and Armen bandages every other day after cleansing and irrigation. I will see Ms. Trinidad again in 2 weeks. The patient has also begin utilizing her lymphedema wraps over the left foot and lower leg. 2. Osteoarthritis. 3. History of non-Hodgkin lymphoma, status post chemotherapy with bleomycin and radiation therapy in 1992. 4. History of pulmonary embolus. 5. Chronic lymphedema. 6. Hypertension. 7. Obstructive sleep apnea. 8. History of deep venous thrombosis. 9. Left atrophic kidney. 10. Chronic kidney disease. 11. Right hydronephrosis. 12. Congestive heart failure. 13. Anemia. Job ID: [id number]
== END 2018-10-14 14:35 | disposition home or self-care (01) ==
LOC: WCC 14:34
PROVIDERS: ATTEND Family Medicine
DX: I87.312 Chronic venous hypertension (idiopathic) with ulcer of left lower extremity (principal); L97.929 Non-pressure chronic ulcer of unspecified part of left lower leg with unspecified severity; I89.0 Lymphedema, not elsewhere classified; M19.90 Unspecified osteoarthritis, unspecified site; I13.0 Hypertensive heart and chronic kidney disease with heart failure and stage 1 through stage 4 chronic kidney disease, or unspecified chronic kidney disease; I50.9 Heart failure, unspecified; N18.9 Chronic kidney disease, unspecified; D63.1 Anemia in chronic kidney disease; G47.33 Obstructive sleep apnea (adult) (pediatric); N26.1 Atrophy of kidney (terminal); N13.30 Unspecified hydronephrosis; Z86.711 Personal history of pulmonary embolism; Z86.718 Personal history of other venous thrombosis and embolism; Z85.72 Personal history of non-Hodgkin lymphomas
CPT/HCPCS: 97602; A4218; J2001

== ENCOUNTER 2018-10-26 14:53 | Outpatient (CLI) | payer MEDICARE ==
[~2018-10-26 14:53] MED LIST changes: +Lidocaine 2% PF 100 mg/5 ml Syringe ONE
--- NOTE | 2018-10-26 16:25 | PRG ---
DATE OF SERVICE: 10/26/2018 HISTORY: Ms. Dodie Trinidad is a very pleasant 83-year-old, accompanied by her daughter, who presents to the Wound Center for evaluation of a large wound of the left lateral lower leg subsequent to incision and drainage of a left leg hematoma on 06/06/[address] Robinson Baez. Since the patient's last visit, Ms. Trinidad has been receiving dressing changes of Mepitel, ABDs, Webril, and Armen bandages every other day after cleansing and irrigation with the assistance of Home Health. The patient has also been utilizing her lymphedema wraps over the left foot and lower leg. Today, the patient's daughter reports copious serous green drainage associated with the left lateral lower leg wound. The patient denies any fever or chills. PHYSICAL EXAMINATION: VITAL SIGNS: Temperature 98.2, pulse 86, blood pressure 134/62. EXTREMITIES: A large wound of the left lateral lower leg is present which measures approximately 18.0 x 8.0 cm. The dimensions of the wound at the time of the patient's last visit were approximately 17.5 x 8.5 cm. Granulation tissue is present within the wound margins. Copious serous green drainage is associated with the wound on today's exam. No cellulitis of the left lower leg is appreciated. No maceration of the skin of the periwound is noted. ASSESSMENT AND PLAN: 1. Chronic venous hypertension with ulceration. Orders will be transmitted to Home Health for dressing changes of Xeroform gauze, ABDs, Webril, and Armen bandages every other day after cleansing and irrigation. I will see Ms. Trinidad again in 1 to 2 weeks. The patient is to continue to utilize her lymphedema wraps over the left foot and lower leg. The patient has also been given a prescription for ciprofloxacin 250 mg #20 one p.o. b.i.d. x10 days. 2. Osteoarthritis. 3. History of non-Hodgkin lymphoma, status post chemotherapy with bleomycin and radiation therapy in 1992. 4. History of pulmonary embolus. 5. Chronic lymphedema. 6. Hypertension. 7. Obstructive sleep apnea. 8. History of deep venous thrombosis. 9. Left atrophic kidney. 10. Chronic kidney disease. 11. Right hydronephrosis. 12. Congestive heart failure. 13. Anemia. Job ID: [id number]
== END 2018-10-26 14:54 | disposition home or self-care (01) ==
LOC: WCC 14:53
PROVIDERS: ATTEND Family Medicine
DX: I87.312 Chronic venous hypertension (idiopathic) with ulcer of left lower extremity (principal); L97.929 Non-pressure chronic ulcer of unspecified part of left lower leg with unspecified severity; I13.0 Hypertensive heart and chronic kidney disease with heart failure and stage 1 through stage 4 chronic kidney disease, or unspecified chronic kidney disease; I50.9 Heart failure, unspecified; N18.9 Chronic kidney disease, unspecified; D63.1 Anemia in chronic kidney disease; M19.90 Unspecified osteoarthritis, unspecified site; I89.0 Lymphedema, not elsewhere classified; G47.33 Obstructive sleep apnea (adult) (pediatric); N26.1 Atrophy of kidney (terminal); N13.30 Unspecified hydronephrosis; Z86.711 Personal history of pulmonary embolism; Z86.718 Personal history of other venous thrombosis and embolism; Z85.72 Personal history of non-Hodgkin lymphomas; Z92.3 Personal history of irradiation
CPT/HCPCS: 97602; A4218; J2001

== ENCOUNTER 2018-11-02 14:41 | Outpatient (CLI) | payer MEDICARE ==
--- NOTE | 2018-11-02 16:19 | PRG ---
DATE OF SERVICE: 11/02/2018 HISTORY: Ms. Dodie Trinidad is a very pleasant 83-year-old, accompanied by her daughter, who presents to the Wound Center for evaluation of a large wound of the left lateral lower leg subsequent to incision and drainage of a left leg hematoma on 06/06/[address] Robinson Baez. Since the patient's last visit, Ms. Trinidad has been receiving dressing changes of Xeroform gauze, ABDs, Webril, and Armen bandages every other day after cleansing and irrigation with the assistance of Home Health. The patient has also been utilizing her lymphedema wraps over the left foot and lower leg. Ciprofloxacin prescribed previously was discontinued by Dr. Cai, and the patient is receiving gentamicin ointment to the wound bed of the left lower leg ulceration at the time of dressing changes. The patient no longer has copious serous green drainage associated with the left lateral lower leg wound according to the patient's daughter. Ms. Trinidad denies any fever or chills. PHYSICAL EXAMINATION: VITAL SIGNS: Temperature 98.2, pulse 94, respirations 19, and blood pressure 192/85. EXTREMITIES: A large wound of the left lateral lower leg is present, which measures approximately 9.2 x 5.5 cm. The dimensions of the wound at the time of the patient's last visit were approximately 18.0 x 8.0 cm. Granulation tissue is present within the wound margins. No purulent drainage is associated with the wound. No erythema of the skin surrounding the wound is present. No maceration of the skin of the periwound is noted. ASSESSMENT AND PLAN: 1. Chronic venous hypertension with ulceration. Orders will be transmitted to Home Health for dressing changes of Xeroform gauze, ABDs, Webril, and Armen bandages every other day after cleansing and irrigation. I will see Ms. Trinidad again in 1 week. The patient is to continue to utilize her lymphedema wraps over the left foot and lower leg. The patient is to continue gentamicin ointment applied to the wound bed of the ulceration at the time of dressing changes. 2. Osteoarthritis. 3. History of non-Hodgkin lymphoma, status post chemotherapy with bleomycin and radiation therapy in 1992. 4. History of pulmonary embolism. 5. Chronic lymphedema. 6. Hypertension. 7. Obstructive sleep apnea. 8. History of deep venous thrombosis. 9. Left atrophic kidney. 10. Chronic kidney disease. 11. Right hydronephrosis. 12. Congestive heart failure. 13. Anemia. Job ID: [id number]
[2018-11-05] MEDS ORDERED: Sodium Chloride 0.9% 15 ML NEB ONE (14:02)
== END 2018-11-02 14:42 | disposition home or self-care (01) ==
LOC: WCC 14:41
PROVIDERS: ATTEND Family Medicine
DX: I87.312 Chronic venous hypertension (idiopathic) with ulcer of left lower extremity (principal); L97.929 Non-pressure chronic ulcer of unspecified part of left lower leg with unspecified severity; I89.0 Lymphedema, not elsewhere classified; M19.90 Unspecified osteoarthritis, unspecified site; G47.33 Obstructive sleep apnea (adult) (pediatric); I13.10 Hypertensive heart and chronic kidney disease without heart failure, with stage 1 through stage 4 chronic kidney disease, or unspecified chronic kidney disease; N18.9 Chronic kidney disease, unspecified; N13.30 Unspecified hydronephrosis; I50.9 Heart failure, unspecified; D63.1 Anemia in chronic kidney disease; N26.1 Atrophy of kidney (terminal); Z87.2 Personal history of diseases of the skin and subcutaneous tissue; Z86.718 Personal history of other venous thrombosis and embolism; Z86.711 Personal history of pulmonary embolism
CPT/HCPCS: 97602

== ENCOUNTER 2018-11-09 13:25 | Outpatient (CLI) | payer MEDICARE ==
[~2018-11-09 13:25] MED LIST changes: -Lidocaine 2% PF 100 mg/5 ml Syringe ONE
--- NOTE | 2018-11-09 14:48 | PRG ---
DATE OF SERVICE: 11/09/2018 HISTORY: Ms. Dodie Trinidad is a very pleasant 83-year-old accompanied by her daughter, who presents to the Wound Center for evaluation of a large wound of the left lateral lower leg subsequent to incision and drainage of a left leg hematoma on 06/06/[address] Robinson Baez. Since the patient's last visit, Ms. Trinidad has been receiving dressing changes of Xeroform gauze, ABDs, Webril, and Armen bandages every other day after cleansing and irrigation with the assistance of Home Health. The patient has also been utilizing her lymphedema wraps over the left foot and lower leg. Gentamicin ointment to the wound bed of the left lower leg ulceration has been continued at the time of dressing changes. The patient has no complaints today. She denies any fever or chills. OBJECTIVE: VITAL SIGNS: Temperature 98.0, pulse 88, respirations 18, and blood pressure 143/65. EXTREMITIES: A large wound of the left lateral lower leg is present, which measures approximately 9.8 x 5.3 cm. The dimensions of the wound at the time of the patient's last visit were approximately 9.2 x 5.5 cm. Granulation tissue is present within the wound margins. No purulent drainage is associated with the wound. No erythema of the skin surrounding the wound is present. No maceration of the skin of the periwound is noted. ASSESSMENT AND PLAN: 1. Chronic venous hypertension with ulceration. Orders will be transmitted to Home Health for dressing changes of Xeroform gauze, ABDs, Webril, and Armen bandages every other day after cleansing and irrigation. I will see Ms. Trinidad again in 1 week. The patient is to continue to utilize her lymphedema wraps over the left foot and lower leg. Gentamicin ointment applied to the wound bed of the ulceration at the time of dressing changes will be continued. 2. Osteoarthritis. 3. History of non-Hodgkin lymphoma, status post chemotherapy with bleomycin and radiation therapy in 1992. 4. History of pulmonary embolism. 5. Chronic lymphedema. 6. Hypertension. 7. Obstructive sleep apnea. 8. History of deep venous thrombosis. 9. Left atrophic kidney. 10. Chronic kidney disease. 11. Right hydronephrosis. 12. Congestive heart failure. 13. Anemia. Job ID: [id number]
== END 2018-11-09 13:26 | disposition home or self-care (01) ==
LOC: WCC 13:25
PROVIDERS: ATTEND Family Medicine
DX: I87.312 Chronic venous hypertension (idiopathic) with ulcer of left lower extremity (principal); L97.929 Non-pressure chronic ulcer of unspecified part of left lower leg with unspecified severity; I89.0 Lymphedema, not elsewhere classified; M19.90 Unspecified osteoarthritis, unspecified site; I13.0 Hypertensive heart and chronic kidney disease with heart failure and stage 1 through stage 4 chronic kidney disease, or unspecified chronic kidney disease; I50.9 Heart failure, unspecified; N18.9 Chronic kidney disease, unspecified; D63.1 Anemia in chronic kidney disease; N13.30 Unspecified hydronephrosis; G47.33 Obstructive sleep apnea (adult) (pediatric); N26.1 Atrophy of kidney (terminal); Z86.718 Personal history of other venous thrombosis and embolism; Z86.711 Personal history of pulmonary embolism; Z85.72 Personal history of non-Hodgkin lymphomas; Z92.3 Personal history of irradiation
CPT/HCPCS: 97602; A4218

== ENCOUNTER 2018-11-11 13:38 | Emergency (ER) | payer MEDICARE ==
[2018-11-11 15:18] LABS: Bilirubin Large (Negative); Blood, Urine Large (Negative); Clarity CLOUDY (Clear); Glucose, Urine (Dipstick) Negative (Negative); Leukocyte Large (Negative); Nitrite Positive (Negative); Protein, Urine (Dipstick) 300 mg/dL (Neg-Trace); Specific Gravity, Urine 1.011 (1.002-1.036); Urobilinogen 0.2 mg/dL (0.2-1.0)
[2018-11-11 15:20] LABS: Hyaline Casts/LPF 0-3 HYALINE CAST LPF (0-3 Hyaline); Squamous Epithelial None Seen HPF (0-3)
[2018-11-11 15:21] LABS: Yeast-AUWi Flag 189.4 (0-25.0)
[2018-11-11 15:22] LABS: Bacteria/HPF Rare-Few HPF (None Seen); RBC/HPF GREATER THAN 50-TNTC HPF (0-3); WBC/HPF 21-50 HPF (0-3); Yeast-All Forms None Seen HPF (None Seen)
== END 2018-11-11 17:15 | disposition home or self-care (01) ==
LOC: ERS 13:38
DX: N39.0 Urinary tract infection, site not specified (principal); I10 Essential (primary) hypertension; G47.30 Sleep apnea, unspecified; M10.9 Gout, unspecified; Z79.899 Other long term (current) drug therapy; Z79.891 Long term (current) use of opiate analgesic; Z79.51 Long term (current) use of inhaled steroids; Z79.01 Long term (current) use of anticoagulants
CPT/HCPCS: 81003; 81015; 87077; 87086; 87186; 99283

== ENCOUNTER 2018-11-18 13:21 | Outpatient (CLI) | payer MEDICARE ==
[2018-11-18] MEDS ORDERED: Lidocaine 2% PF 100 mg/5 ml Syringe ONE (15:00)
[2018-11-18] MEDS ORDERED: Sodium Chloride 0.9% 15 ML NEB ONE (15:00)
--- NOTE | 2018-11-18 15:02 | PRG ---
DATE OF SERVICE: 11/18/2018 HISTORY: Ms. Dodie Trinidad is a very pleasant 83-year-old accompanied by her daughter, who presents to the Wound Center for evaluation of a large wound of the left lateral lower leg subsequent to incision and drainage of a left leg hematoma on 06/06/[address] Robinson Baez. Since the patient's last visit, Ms. Trinidad has been receiving dressing changes of Xeroform gauze, ABDs, Webril, and Armen bandages every other day after cleansing and irrigation with the assistance of Home Health. The patient has also been utilizing her lymphedema wraps over the left foot and lower leg. Gentamicin ointment to the wound bed of the left lower leg ulceration has been continued at the time of dressing changes. Ms. Trinidad has no complaints today. She denies any fever or chills. PHYSICAL EXAMINATION: VITAL SIGNS: Temperature 98.0, pulse 87, respirations 18, and blood pressure 138/61. EXTREMITIES: A large wound of the left lateral lower leg is present, which measures approximately 9.0 x 5.8 cm. The dimensions of the wound at the time of the patient's last visit were approximately 9.8 x 5.3 cm. Granulation tissue is present within the wound margins. No purulent drainage is associated with the wound. No erythema of the skin surrounding the wound is present. No maceration of the skin of the periwound is noted. ASSESSMENT AND PLAN: 1. Chronic venous hypertension with ulceration. Orders will be transmitted to Home Health for dressing changes of Xeroform gauze, ABDs, Webril, and Armen bandages every other day after cleansing and irrigation. I will see Ms. Trinidad again in 1 week. The patient is to continue to utilize her lymphedema wraps over the left foot and lower leg. Gentamicin ointment applied to the wound bed of the ulceration at the time of dressing changes will be continued. 2. Osteoarthritis. 3. History of non-Hodgkin lymphoma, status post chemotherapy with bleomycin and radiation therapy in 1992. 4. History of pulmonary embolism. 5. Chronic lymphedema. 6. Hypertension. 7. Obstructive sleep apnea. 8. History of deep venous thrombosis. 9. Left atrophic kidney. 10. Chronic kidney disease. 11. Right hydronephrosis. 12. Congestive heart failure. 13. Anemia. Job ID: [id number]
== END 2018-11-18 13:22 | disposition home or self-care (01) ==
LOC: WCC 13:21
PROVIDERS: ATTEND Family Medicine
DX: I87.312 Chronic venous hypertension (idiopathic) with ulcer of left lower extremity (principal); L97.929 Non-pressure chronic ulcer of unspecified part of left lower leg with unspecified severity; I89.0 Lymphedema, not elsewhere classified; I13.0 Hypertensive heart and chronic kidney disease with heart failure and stage 1 through stage 4 chronic kidney disease, or unspecified chronic kidney disease; I50.9 Heart failure, unspecified; N18.9 Chronic kidney disease, unspecified; D63.1 Anemia in chronic kidney disease; N13.30 Unspecified hydronephrosis; M19.90 Unspecified osteoarthritis, unspecified site; G47.33 Obstructive sleep apnea (adult) (pediatric); N26.1 Atrophy of kidney (terminal); Z86.711 Personal history of pulmonary embolism; Z86.718 Personal history of other venous thrombosis and embolism; Z85.72 Personal history of non-Hodgkin lymphomas; Z92.3 Personal history of irradiation
CPT/HCPCS: A4218; J2001

== ENCOUNTER 2018-11-25 14:32 | Outpatient (CLI) | payer MEDICARE ==
[~2018-11-25 14:32] MED LIST changes: +Lidocaine 2% PF 100 mg/5 ml Syringe ONE
--- NOTE | 2018-11-25 15:55 | PRG ---
DATE OF SERVICE: 11/25/2018 HISTORY: Ms. Dodie Trinidad is a very pleasant 83-year-old, accompanied by her daughter, who presents to the [facility]ound Center for evaluation of a large wound of the left lateral lower leg subsequent to incision and drainage of a left leg hematoma on 06/06/[address] Robinson Baez. Since the patient's last visit, Ms. Trinidad has been receiving dressing changes of Xeroform gauze, ABDs, Webril, and Armen bandages every other day after cleansing and irrigation with the assistance of Home Health. The patient has also been utilizing her lymphedema wraps over the left foot and lower leg. Gentamicin ointment to the wound bed of the left lower leg ulceration has been continued at the time of dressing changes. The patient has no complaints today. She denies any fever or chills. PHYSICAL EXAMINATION: VITAL SIGNS: Stable, afebrile. EXTREMITIES: A large wound of the left lateral lower leg is present which measures approximately 9.0 x 4.5 cm. The dimensions of the wound at the time of the patient's last visit were approximately 9.0 x 5.8 cm. Granulation tissue is present within the wound margins. Nonviable tissue present within the wound margins was debrided with an excisional full-thickness debridement with the use of a curette. No purulent drainage is associated with the wound. No erythema of the skin surrounding the wound is present. No maceration of the skin of the periwound is noted. ASSESSMENT AND PLAN: 1. Chronic venous hypertension with ulceration. Orders will be transmitted to Home Health for dressing changes of Xeroform gauze, ABDs, Webril, and Armen bandages every other day after cleansing and irrigation. I will see Ms. Trinidad again in 1 week. The patient is to continue to utilize her lymphedema wraps over the left foot and lower leg. Gentamicin ointment applied to the wound bed of the ulceration at the time of dressing changes will be continued. 2. Osteoarthritis. 3. History of non-Hodgkin lymphoma, status post chemotherapy with bleomycin and radiation therapy in 1992. 4. History of pulmonary embolism. 5. Chronic lymphedema. 6. Hypertension. 7. Obstructive sleep apnea. 8. History of deep venous thrombosis. 9. Left atrophic kidney. 10. Chronic kidney disease. 11. Right hydronephrosis. 12. Congestive heart failure. 13. Anemia. Job ID: [id number]
== END 2018-11-25 14:33 | disposition home or self-care (01) ==
LOC: WCC 14:32
PROVIDERS: ATTEND Family Medicine
DX: T81.89XD Other complications of procedures, not elsewhere classified, subsequent encounter (principal); I87.312 Chronic venous hypertension (idiopathic) with ulcer of left lower extremity; L97.929 Non-pressure chronic ulcer of unspecified part of left lower leg with unspecified severity; G47.33 Obstructive sleep apnea (adult) (pediatric); M19.90 Unspecified osteoarthritis, unspecified site; Z85.72 Personal history of non-Hodgkin lymphomas; I89.0 Lymphedema, not elsewhere classified; I13.0 Hypertensive heart and chronic kidney disease with heart failure and stage 1 through stage 4 chronic kidney disease, or unspecified chronic kidney disease; I50.9 Heart failure, unspecified; N18.9 Chronic kidney disease, unspecified; N13.30 Unspecified hydronephrosis; D63.1 Anemia in chronic kidney disease; N26.1 Atrophy of kidney (terminal); Z86.711 Personal history of pulmonary embolism; Z86.73 Personal history of transient ischemic attack (TIA), and cerebral infarction without residual deficits
CPT/HCPCS: 11042; 11045; A4218; J2001

== ENCOUNTER 2018-12-02 14:35 | Outpatient (CLI) | payer MEDICARE ==
--- NOTE | 2018-12-02 15:59 | PRG ---
DATE OF SERVICE: 12/02/2018 HISTORY: Ms. Dodie Trinidad is a very pleasant 83-year-old, accompanied by her daughter, who presents [facility] for evaluation of a large wound of the left lateral lower leg subsequent to incision and drainage of a left leg hematoma on 06/06/[address] Robinson Baez. Since the patient's last visit, Ms. Trinidad has been receiving dressing changes of Xeroform gauze, ABDs, Webril, and Armen bandages every other day after cleansing and irrigation with the assistance of Home Health. The patient has also been utilizing her lymphedema wraps over the left foot and lower leg. Gentamicin ointment to the wound bed of the left lower leg ulceration has been continued at the time of dressing changes. Ms. Trinidad has no complaints today. She denies any fever or chills. PHYSICAL EXAMINATION: VITAL SIGNS: Pulse 84, respirations 22, and blood pressure 184/84. EXTREMITIES: A large wound of the left lateral lower leg is present, which measures approximately 8.0 x 4.0 cm. The dimensions of the wound at the time of the patient's last visit were approximately 9.0 x 4.5 cm. Granulation tissue is present within the wound margins. Nonviable tissue present within the wound margins was debrided with an excisional full-thickness debridement with the use of a curette. No purulent drainage is associated with the wound. No erythema of the skin surrounding the wound is present. No maceration of the skin of the periwound is noted. ASSESSMENT AND PLAN: 1. Chronic venous hypertension with ulceration. Orders will be transmitted to Home Health for dressing changes of Xeroform gauze, ABDs, Webril, and Armen bandages every other day after cleansing and irrigation. I will see Ms. Trinidad again in 1 week. The patient is to continue to utilize her lymphedema wraps over the left foot and lower leg. Gentamicin ointment will be applied to the wound bed of the ulceration at the time of dressing changes. 2. Osteoarthritis. 3. History of non-Hodgkin lymphoma, status post chemotherapy with bleomycin and radiation therapy in 1992. 4. History of pulmonary embolism. 5. Chronic lymphedema. 6. Hypertension. 7. Obstructive sleep apnea. 8. History of deep venous thrombosis. 9. Left atrophic kidney. 10. Chronic kidney disease. 11. Right hydronephrosis. 12. Congestive heart failure. 13. Anemia. Job ID: [id number]
[2018-12-02] MEDS ORDERED: Sodium Chloride 0.9% 15 ML NEB ONE (16:11)
== END 2018-12-02 14:36 | disposition home or self-care (01) ==
LOC: WCC 14:35
PROVIDERS: ATTEND Family Medicine
DX: I87.312 Chronic venous hypertension (idiopathic) with ulcer of left lower extremity (principal); L97.929 Non-pressure chronic ulcer of unspecified part of left lower leg with unspecified severity; I89.0 Lymphedema, not elsewhere classified; G47.33 Obstructive sleep apnea (adult) (pediatric); M19.90 Unspecified osteoarthritis, unspecified site; I13.0 Hypertensive heart and chronic kidney disease with heart failure and stage 1 through stage 4 chronic kidney disease, or unspecified chronic kidney disease; I50.9 Heart failure, unspecified; N18.9 Chronic kidney disease, unspecified; D63.1 Anemia in chronic kidney disease; N26.1 Atrophy of kidney (terminal); N13.30 Unspecified hydronephrosis; Z86.711 Personal history of pulmonary embolism; Z86.718 Personal history of other venous thrombosis and embolism; Z85.72 Personal history of non-Hodgkin lymphomas; Z92.3 Personal history of irradiation
CPT/HCPCS: 11042; 11045; A4218

== ENCOUNTER 2018-12-09 14:47 | Outpatient (CLI) | payer MEDICARE ==
--- NOTE | 2018-12-09 15:43 | PRG ---
DATE OF SERVICE: 12/09/2018 HISTORY: Ms. Dodie Trinidad is a very pleasant 83-year-old, accompanied by her daughter, who presents to the [facility] for evaluation of a large wound of the left lateral lower leg subsequent to incision and drainage of a left leg hematoma on 06/06/[address] Robinson Baez. Since the patient's last visit, Ms. Trinidad has been receiving dressing changes of Xeroform gauze, ABDs, Webril, and Armen bandages every other day after cleansing and irrigation with the assistance of Home Health. The patient has also been utilizing her lymphedema wraps over the left foot and lower leg. Gentamicin ointment to the wound bed of the left lower leg has been continued at the time of dressing changes. The patient has no complaints today. She denies any fever or chills. PHYSICAL EXAMINATION: VITAL SIGNS: Temperature 97.7, pulse 87, respirations 19, and blood pressure 148/65. EXTREMITIES: A large wound of the left lateral lower leg is present which measures approximately 9.0 x 6.0 cm. Granulation tissue is present within the wound margins. Nonviable tissue present within the wound margins was debrided with an excisional full-thickness debridement with the use of a curette. Hypergranulation within the wound margins was treated with the application of silver nitrate. No purulent drainage is associated with the wound. No erythema of the skin surrounding the wound is present. No maceration of the skin of the periwound is noted. ASSESSMENT AND PLAN: 1. Chronic venous hypertension with ulceration. Orders will be transmitted to Home Health for dressing changes of Xeroform gauze, ABDs, Webril, and Armen bandages every other day after cleansing and irrigation. I will see Ms. Trinidad again in 1 to 2 weeks. The patient is to continue to utilize her lymphedema wraps over the left foot and lower leg. Gentamicin ointment will be applied to the wound bed of the ulceration at the time of dressing changes. 2. Osteoarthritis. 3. History of non-Hodgkin lymphoma, status post chemotherapy with bleomycin and radiation therapy in 1992. 4. History of pulmonary embolism. 5. Chronic lymphedema. 6. Hypertension. 7. Obstructive sleep apnea. 8. History of deep venous thrombosis. 9. Left atrophic kidney. 10. Chronic kidney disease. 11. Right hydronephrosis. 12. Congestive heart failure. 13. Anemia. Job ID: [id number]
[2018-12-09] MEDS ORDERED: Lidocaine 2% 11 ML SYR ONE (18:00)
[2018-12-09] MEDS ORDERED: Sodium Chloride 0.9% 15 ML NEB ONE (18:00)
== END 2018-12-09 14:48 | disposition home or self-care (01) ==
LOC: WCC 14:47
PROVIDERS: ATTEND Family Medicine
DX: I87.312 Chronic venous hypertension (idiopathic) with ulcer of left lower extremity (principal); L97.929 Non-pressure chronic ulcer of unspecified part of left lower leg with unspecified severity; I89.0 Lymphedema, not elsewhere classified; G47.33 Obstructive sleep apnea (adult) (pediatric); I13.0 Hypertensive heart and chronic kidney disease with heart failure and stage 1 through stage 4 chronic kidney disease, or unspecified chronic kidney disease; I50.9 Heart failure, unspecified; N18.9 Chronic kidney disease, unspecified; D63.1 Anemia in chronic kidney disease; N26.1 Atrophy of kidney (terminal); N13.30 Unspecified hydronephrosis; M19.90 Unspecified osteoarthritis, unspecified site; Z86.711 Personal history of pulmonary embolism; Z86.718 Personal history of other venous thrombosis and embolism; Z85.72 Personal history of non-Hodgkin lymphomas; Z92.3 Personal history of irradiation
CPT/HCPCS: A4218

== ENCOUNTER 2018-12-16 15:50 | Outpatient (CLI) | payer MEDICARE ==
--- NOTE | 2018-12-16 16:49 | PRG ---
DATE OF SERVICE: 12/16/2018 HISTORY: Ms. Dodie Trinidad is a very pleasant 83-year-old, accompanied by her daughter, who presents to the wound center for evaluation of a large wound of the left lateral lower leg subsequent to incision and drainage of a left leg hematoma on 06/06/[address] Robinson Baez. Since the patient's last visit, Ms. Trinidad has been receiving dressing changes of Xeroform gauze, ABDs, Webril, and Armen bandages every other day after cleansing and irrigation with the assistance of Home Health. The patient has also been utilizing her lymphedema wraps over the left foot and lower leg. Gentamicin ointment to the wound bed of the left lower leg has been continued at the time of dressing changes. Ms. Trinidad has no complaints today. She denies any fever or chills. PHYSICAL EXAMINATION: VITAL SIGNS: Temperature 98.1, pulse 90, respirations 16, and blood pressure 139/65. EXTREMITIES: A large wound of the left lateral lower leg is present, which measures approximately 7.5 x 9.0 cm. Granulation tissue is present within the wound margins. Nonviable tissue present within the wound margins was debrided with an excisional full-thickness debridement with the use of a curette. Hypergranulation within the wound margins was treated with the application of silver nitrate. No purulent drainage is associated with the wound. No erythema of the skin surrounding the wound is present. No maceration of the skin of the periwound is noted. The area of biofilm within the wound margins measures approximately 4.0 x 7.5 cm. ASSESSMENT AND PLAN: 1. Chronic venous hypertension with ulceration. Orders will be transmitted to Home Health for dressing changes of Xeroform gauze, ABDs, Webril, and Armen bandages every other day after cleansing and irrigation. I will see Ms. Trinidad again in 1 week. The patient is to continue to utilize her lymphedema wraps over the left foot and lower leg. Gentamicin ointment will be applied to the wound bed of the ulceration at the time of dressing changes. 2. Osteoarthritis. 3. History of non-Hodgkin lymphoma, status post chemotherapy with bleomycin and radiation therapy in 1992. 4. History of pulmonary embolism. 5. Chronic lymphedema. 6. Hypertension. 7. Obstructive sleep apnea. 8. History of deep venous thrombosis. 9. Left atrophic kidney. 10. Chronic kidney disease. 11. Right hydronephrosis. 12. Congestive heart failure. 13. Anemia. Job ID: [id number]
== END 2018-12-16 15:51 | disposition home or self-care (01) ==
LOC: WCC 15:50
PROVIDERS: ATTEND Family Medicine
DX: I87.312 Chronic venous hypertension (idiopathic) with ulcer of left lower extremity (principal); L97.929 Non-pressure chronic ulcer of unspecified part of left lower leg with unspecified severity; I89.0 Lymphedema, not elsewhere classified; M19.90 Unspecified osteoarthritis, unspecified site; G47.33 Obstructive sleep apnea (adult) (pediatric); I13.0 Hypertensive heart and chronic kidney disease with heart failure and stage 1 through stage 4 chronic kidney disease, or unspecified chronic kidney disease; I50.9 Heart failure, unspecified; N18.9 Chronic kidney disease, unspecified; D63.1 Anemia in chronic kidney disease; N13.30 Unspecified hydronephrosis; N26.1 Atrophy of kidney (terminal); Z86.718 Personal history of other venous thrombosis and embolism; Z85.72 Personal history of non-Hodgkin lymphomas; Z92.3 Personal history of irradiation

== ENCOUNTER 2018-12-23 16:01 | Outpatient (CLI) | payer MEDICARE ==
--- NOTE | 2018-12-23 15:52 | PRG ---
DATE OF SERVICE: 12/23/2018 HISTORY: Ms. Dodie Trinidad is a very pleasant 83-year-old, accompanied by her daughter, who presents to the [facility] Center for evaluation of a large wound of the left lateral lower leg subsequent to incision and drainage of a left leg hematoma on 06/06/[address] Robinson Baez. Since the patient's last visit, Ms. Trinidad has been receiving dressing changes of Xeroform gauze, ABDs, Webril, and Armen bandages every other day after cleansing and irrigation with the assistance of Home Health. The patient has also been utilizing her lymphedema wraps over the left foot and lower leg. Gentamicin ointment to the wound bed of the left lower leg has been continued at the time of dressing changes. The patient has no complaints today. She denies any fever or chills. PHYSICAL EXAMINATION: VITAL SIGNS: Pulse 85, respirations 17, and blood pressure 135/60. EXTREMITIES: A large wound of the left lateral lower leg is present, which measures approximately 7.0 x 9.0 cm. Granulation tissue is present within the wound margins. Nonviable tissue present within the wound margins was debrided with an excisional full-thickness debridement with the use of a curette. Hypergranulation within the wound margins was treated with the application of silver nitrate. No purulent drainage is associated with the wound. No erythema of the skin surrounding the wound is present. No maceration of the skin of the periwound is noted. The area of biofilm within the wound margins measures approximately 7.5 x 3.0 cm. ASSESSMENT AND PLAN: 1. Chronic venous hypertension with ulceration. Orders will be transmitted to Home Health for dressing changes of Xeroform gauze, ABDs, Webril, and Armen bandages every other day after cleansing and irrigation. I will see Ms. Trinidad again in 2 weeks. The patient is to continue to utilize her lymphedema wraps over the left foot and lower leg. Gentamicin ointment will be applied to the wound bed of the ulceration at the time of dressing changes. 2. Osteoarthritis. 3. History of non-Hodgkin lymphoma, status post chemotherapy with bleomycin and radiation therapy in 1992. 4. History of pulmonary embolism. 5. Chronic lymphedema. 6. Hypertension. 7. Obstructive sleep apnea. 8. History of deep venous thrombosis. 9. Left atrophic kidney. 10. Chronic kidney disease. 11. Right hydronephrosis. 12. Congestive heart failure. 13. Anemia. Job ID: [id number]
[2018-12-23] MEDS ORDERED: Lidocaine 2% 11 ML SYR ONE (18:00)
[2018-12-23] MEDS ORDERED: Sodium Chloride 0.9% 15 ML NEB ONE (18:00)
== END 2018-12-23 16:02 | disposition home or self-care (01) ==
LOC: WCC 16:01
PROVIDERS: ATTEND Family Medicine
DX: T81.89XD Other complications of procedures, not elsewhere classified, subsequent encounter (principal); I87.312 Chronic venous hypertension (idiopathic) with ulcer of left lower extremity; M19.90 Unspecified osteoarthritis, unspecified site; I89.0 Lymphedema, not elsewhere classified; G47.33 Obstructive sleep apnea (adult) (pediatric); N26.1 Atrophy of kidney (terminal); N18.9 Chronic kidney disease, unspecified; N13.30 Unspecified hydronephrosis; I50.9 Heart failure, unspecified; D63.1 Anemia in chronic kidney disease; I13.0 Hypertensive heart and chronic kidney disease with heart failure and stage 1 through stage 4 chronic kidney disease, or unspecified chronic kidney disease; Z85.72 Personal history of non-Hodgkin lymphomas; Z86.711 Personal history of pulmonary embolism; Z86.718 Personal history of other venous thrombosis and embolism
CPT/HCPCS: 11042; 11045; A4218

== ENCOUNTER 2019-01-04 13:06 | Outpatient (CLI) | payer MEDICARE ==
--- NOTE | 2019-01-04 14:40 | PRG ---
DATE OF SERVICE: 01/04/2019 SUBJECTIVE: Ms. Dodie Trinidad is a very pleasant 83-year-old, accompanied by her daughter, who presents to the wound center for evaluation of a large wound of the left lateral lower leg subsequent to incision and drainage of a left leg hematoma on 06/06/[address] Robinson Baez. Since the patient's last visit, Ms. Trinidad has been receiving dressing changes of Xeroform gauze, ABDs, Webril, and Armen bandages every other day after cleansing and irrigation with the assistance of Home Health. The patient has also been utilizing her lymphedema wraps over the left foot and lower leg. Gentamicin ointment to the wound bed of the left lower leg has been continued at the time of dressing changes. Ms. Trinidad has no complaints today. She denies any fever or chills. OBJECTIVE: VITAL SIGNS: Stable, afebrile. EXTREMITIES: A large wound of the left lateral lower leg is present which measures approximately 9.5 x 8.0 cm. Granulation tissue is present within the wound margins. Nonviable tissue present within the wound margins was debrided with an excisional full-thickness debridement with the use of a curette. No purulent drainage is associated with the wound. No erythema of the skin surrounding the wound is present. No maceration of the skin of the periwound is noted. Post-debridement measurements are approximately 8.0 x 9.5 cm also. ASSESSMENT AND PLAN: 1. Chronic venous hypertension with ulceration. Orders will be transmitted to Home Health for dressing changes of Xeroform gauze, ABDs, Webril, and Armen bandages every other day after cleansing and irrigation. The patient is to continue to utilize her lymphedema wraps over the left foot and lower leg. Gentamicin ointment will be applied to the wound bed of the ulceration at the time of dressing changes. I will see Ms. Trinidad again in 2 weeks. 2. Osteoarthritis. 3. History of non-Hodgkin lymphoma, status post chemotherapy with bleomycin and radiation therapy in 1992. 4. History of pulmonary embolism. 5. Chronic lymphedema. 6. Hypertension. 7. Obstructive sleep apnea. 8. History of deep venous thrombosis. 9. Left atrophic kidney. 10. Chronic kidney disease. 11. Right hydronephrosis. 12. Congestive heart failure. 13. Anemia. Job ID: [id number]
[2019-01-04] MEDS ORDERED: Sodium Chloride 0.9% 15 ML NEB ONE (18:00)
[2019-01-04] MEDS ORDERED: Lidocaine 2% 11 ML SYR ONE (18:00)
== END 2019-01-04 13:07 | disposition home or self-care (01) ==
LOC: WCC 13:06
PROVIDERS: ATTEND Family Medicine
DX: T81.89XD Other complications of procedures, not elsewhere classified, subsequent encounter (principal); I87.312 Chronic venous hypertension (idiopathic) with ulcer of left lower extremity; M19.90 Unspecified osteoarthritis, unspecified site; Z85.72 Personal history of non-Hodgkin lymphomas; I89.0 Lymphedema, not elsewhere classified; I13.0 Hypertensive heart and chronic kidney disease with heart failure and stage 1 through stage 4 chronic kidney disease, or unspecified chronic kidney disease; G47.33 Obstructive sleep apnea (adult) (pediatric); Z86.718 Personal history of other venous thrombosis and embolism; N28.89 Other specified disorders of kidney and ureter; N18.9 Chronic kidney disease, unspecified; N13.30 Unspecified hydronephrosis; I50.9 Heart failure, unspecified; D63.1 Anemia in chronic kidney disease
CPT/HCPCS: 11042; 11045; A4218

== ENCOUNTER 2019-01-20 16:10 | Outpatient (CLI) | payer MEDICARE ==
--- NOTE | 2019-01-20 16:22 | PRG ---
DATE OF SERVICE: 01/20/2019 HISTORY OF PRESENT ILLNESS: Ms. Dodie Trinidad is a very pleasant 83-year-old, accompanied by her daughter, who presents to the [facility] for evaluation of a large wound of the left lateral lower leg subsequent to incision and drainage of a left leg hematoma on 06/06/[address] Robinson Baez. Since the patient's last visit, Ms. Trinidad has been receiving dressing changes of Xeroform gauze, ABDs, Webril, and Armen bandages every other day after cleansing and irrigation with the assistance of Home Health. The patient has also been utilizing her lymphedema wraps over the left foot and lower leg. Gentamicin ointment to the wound bed of the left lower leg has been continued at the time of dressing changes. The patient has no complaints today. She denies any fever or chills. PHYSICAL EXAMINATION: VITAL SIGNS: Temperature 98.2, pulse 88, respirations 22, and blood pressure 136/65. EXTREMITIES: A large wound of the left lateral lower leg is present, which measures approximately 12.5 x 5.0 cm. Granulation tissue is present within the wound margins. No purulent drainage is associated with the wound. No erythema of the skin surrounding the wound is present. No maceration of the skin of the periwound is noted. ASSESSMENT AND PLAN: 1. Chronic venous hypertension with ulceration. Orders will be transmitted to Home Health for dressing changes of PluroGel foam followed by Allevyn 3 times per week after cleansing and irrigation. The patient is to continue to utilize her lymphedema wraps over the left foot and lower leg. The patient is presently taking p.o. ciprofloxacin and gentamicin ointment applied to the wound bed of the ulceration at the time of dressing changes will be discontinued. I will see Ms. Trinidad again in 2 weeks. 2. Osteoarthritis. 3. History of non-Hodgkin's lymphoma status post chemotherapy with bleomycin and radiation therapy in 1992. 4. History of pulmonary embolism. 5. Chronic lymphedema. 6. Hypertension. 7. Obstructive sleep apnea. 8. History of deep venous thrombosis. 9. Left atrophic kidney. 10. Chronic kidney disease. 11. Right hydronephrosis. 12. Congestive heart failure. 13. Anemia. Job ID: [id number]
[2019-01-20] MEDS ORDERED: Sodium Chloride 0.9% 15 ML NEB ONE (18:00)
== END 2019-01-20 16:11 | disposition home or self-care (01) ==
LOC: WCC 16:10
PROVIDERS: ATTEND Family Medicine
DX: T81.89XD Other complications of procedures, not elsewhere classified, subsequent encounter (principal); I87.312 Chronic venous hypertension (idiopathic) with ulcer of left lower extremity; M19.90 Unspecified osteoarthritis, unspecified site; I89.0 Lymphedema, not elsewhere classified; N26.1 Atrophy of kidney (terminal); I13.0 Hypertensive heart and chronic kidney disease with heart failure and stage 1 through stage 4 chronic kidney disease, or unspecified chronic kidney disease; N18.9 Chronic kidney disease, unspecified; I50.9 Heart failure, unspecified; N13.30 Unspecified hydronephrosis; D63.1 Anemia in chronic kidney disease; Z86.718 Personal history of other venous thrombosis and embolism; Z85.72 Personal history of non-Hodgkin lymphomas
CPT/HCPCS: A4218

== ENCOUNTER 2019-02-03 15:58 | Outpatient (CLI) | payer MEDICARE ==
--- NOTE | 2019-02-03 16:34 | PRG ---
DATE OF SERVICE: 02/03/2019 HISTORY: Ms. Dodie Trinidad is a very pleasant 83-year-old, accompanied by her daughter, who presents to the [facility] for evaluation of a large wound of the left lateral lower leg subsequent to incision and drainage of a left leg hematoma on 06/06/2018, by Dr. Robinson Baez. Since the patient's last visit, Ms. Trinidad has been receiving dressing changes of PluroGel, foam, and Allevyn 3 times per week after cleansing and irrigation with the assistance of Home Health. The patient has also been utilizing her lymphedema wraps over the left foot and lower leg. The patient has no complaints today. She denies any fever or chills. PHYSICAL EXAMINATION: VITAL SIGNS: Temperature 98.2, pulse 86, respirations 20, blood pressure 138/74. EXTREMITIES: A large wound of the left lateral lower leg is present, which measures approximately 6.7 x 4.3 cm. The dimensions of the wound at the time of the patient's last visit were approximately 12.5 x 5.0 cm. Granulation tissue is present within the wound margins. No purulent drainage is associated with the wound. No erythema of the skin surrounding the wound is present. No maceration of the skin of the periwound is noted. ASSESSMENT AND PLAN: 1. Chronic venous hypertension with ulceration. Dressing changes of PluroGel, foam, and Allevyn will be continued 3 times per week after cleansing and irrigation with the assistance of Home Health. The patient will continue to utilize lymphedema wraps over the left foot and lower leg. I will see Ms. Trinidad again in 2 weeks. 2. Osteoarthritis. 3. History of non-Hodgkin lymphoma, status post chemotherapy with bleomycin and radiation therapy in 1992. 4. History of pulmonary embolism. 5. Chronic lymphedema. 6. Hypertension. 7. Obstructive sleep apnea. 8. History of deep venous thrombosis. 9. Left atrophic kidney. 10. Chronic kidney disease. 11. Right hydronephrosis. 12. Congestive heart failure. 13. Anemia. Job ID: [id number]
[2019-02-03] MEDS ORDERED: Sodium Chloride 0.9% 15 ML NEB ONE (17:18)
== END 2019-02-03 15:59 | disposition home or self-care (01) ==
LOC: WCC 15:58
PROVIDERS: ATTEND Family Medicine
DX: I87.312 Chronic venous hypertension (idiopathic) with ulcer of left lower extremity (principal); M19.90 Unspecified osteoarthritis, unspecified site; I89.0 Lymphedema, not elsewhere classified; G47.33 Obstructive sleep apnea (adult) (pediatric); N26.1 Atrophy of kidney (terminal); I13.0 Hypertensive heart and chronic kidney disease with heart failure and stage 1 through stage 4 chronic kidney disease, or unspecified chronic kidney disease; I50.9 Heart failure, unspecified; N18.9 Chronic kidney disease, unspecified; D63.1 Anemia in chronic kidney disease; N13.30 Unspecified hydronephrosis; Z85.72 Personal history of non-Hodgkin lymphomas; Z86.711 Personal history of pulmonary embolism
CPT/HCPCS: 97602; A4218

== ENCOUNTER 2019-02-15 13:58 | Outpatient (CLI) | payer MEDICARE ==
--- NOTE | 2019-02-15 14:52 | PRG ---
DATE OF SERVICE: 02/15/2019 HISTORY OF PRESENT ILLNESS: Ms. Dodie Trinidad is a very pleasant 83-year-old, accompanied by her daughter, who presents to the [facility] for evaluation of a large wound of the left lateral lower leg subsequent to incision and drainage of a left leg hematoma on 06/06/[address] Robinson Baez. Since the patient's last visit, Ms. Trinidad has been receiving dressing changes of PluroGel, foam, ABDs, and Armen bandages 3 times per week after cleansing and irrigation with the assistance of Home Health. The patient has also been utilizing her lymphedema wraps over the left foot and lower leg. The patient has no complaints today. She denies any fever or chills. PHYSICAL EXAMINATION: VITAL SIGNS: Temperature 98.3, pulse 87, respirations 18, blood pressure 137/61. EXTREMITIES: A large wound of the left lateral lower leg is present, which measures approximately 7.4 x 4.7 cm. The dimensions of the wound at the time of the patient's last visit were approximately 6.7 x 4.3 cm. Granulation tissue is present within the wound margins. No purulent drainage is associated with the wound. No erythema of the skin surrounding the wound is present. No maceration of the skin of the periwound is noted. ASSESSMENT AND PLAN: 1. Chronic venous hypertension with ulceration, dressing changes of PluroGel, foam, ABDs, and an Armen bandage will be continued 3 times per week after cleansing and irrigation with the assistance of Home Health. The patient will continue to utilize lymphedema wraps over the left foot and lower leg. I will see Ms. Trinidad again in 2 to 4 weeks. 2. Osteoarthritis. 3. History of non-Hodgkin lymphoma, status post chemotherapy with bleomycin and radiation therapy in 1992. 4. History of pulmonary embolism. 5. Chronic lymphedema. 6. Hypertension. 7. Obstructive sleep apnea. 8. History of deep venous thrombosis. 9. Left atrophic kidney. 10. Chronic kidney disease. 11. Right hydronephrosis. 12. Congestive heart failure. 13. Anemia. Job ID: [id number]
[2019-02-15] MEDS ORDERED: Sodium Chloride 0.9% 15 ML NEB ONE (19:23)
== END 2019-02-15 13:59 | disposition home or self-care (01) ==
LOC: WCC 13:58
PROVIDERS: ATTEND Family Medicine
DX: I87.312 Chronic venous hypertension (idiopathic) with ulcer of left lower extremity (principal); L97.929 Non-pressure chronic ulcer of unspecified part of left lower leg with unspecified severity; M19.90 Unspecified osteoarthritis, unspecified site; Z85.72 Personal history of non-Hodgkin lymphomas; Z86.711 Personal history of pulmonary embolism; I89.0 Lymphedema, not elsewhere classified; G47.33 Obstructive sleep apnea (adult) (pediatric); Z86.718 Personal history of other venous thrombosis and embolism; N26.1 Atrophy of kidney (terminal); I13.0 Hypertensive heart and chronic kidney disease with heart failure and stage 1 through stage 4 chronic kidney disease, or unspecified chronic kidney disease; I50.9 Heart failure, unspecified; N18.9 Chronic kidney disease, unspecified; N13.30 Unspecified hydronephrosis; D63.1 Anemia in chronic kidney disease
CPT/HCPCS: 97602; A4218

== ENCOUNTER 2019-03-03 15:33 | Outpatient (CLI) | payer MEDICARE ==
--- NOTE | 2019-03-03 17:03 | PRG ---
DATE OF SERVICE: 03/03/2019 HISTORY: Ms. Dodie Trinidad is a very pleasant 83-year-old, accompanied by her daughter, who presents to the [facility] for evaluation of a large wound of the left lateral lower leg subsequent to incision and drainage of a left leg hematoma on 06/06/[address] Robinson Baez. Since the patient's last visit, Ms. Trinidad has been receiving dressing changes of PluroGel foam, ABDs, and Armen bandages 3 times per week after cleansing and irrigation with the assistance of Home Health. The patient has also been utilizing her lymphedema wraps over the left foot and lower leg. Ms. Trinidad has no complaints today. She denies any fever or chills. PHYSICAL EXAMINATION: VITAL SIGNS: Temperature 98.1, pulse 89, respirations 17, blood pressure 129/60. EXTREMITIES: A large wound of the left lateral lower leg is present, which measures approximately 6.4 x 4.4 cm. The dimensions of the wound at the time of the patient's last visit were approximately 7.4 x 4.7 cm. Granulation tissue is present within the wound margins. No purulent drainage is associated with the wound. No erythema of the skin surrounding the wound is present. No maceration of the skin of the periwound is noted. ASSESSMENT AND PLAN: 1. Chronic venous hypertension with ulceration. Dressing changes of PluroGel, foam, ABDs, and an Armen bandage will be continued 3 times per week after cleansing and irrigation with the assistance of Home Health. The patient will continue to utilize lymphedema wraps over the left foot and lower leg. I will see Ms. Trinidad again in 2 weeks. 2. Osteoarthritis. 3. History of non-Hodgkin lymphoma, status post chemotherapy with bleomycin and radiation therapy in 1992. 4. History of pulmonary embolism. 5. Chronic lymphedema. 6. Hypertension. 7. Obstructive sleep apnea. 8. History of deep venous thrombosis. 9. Left atrophic kidney. 10. Chronic kidney disease. 11. Right hydronephrosis. 12. Congestive heart failure. 13. Anemia. Job ID: [id number]
[2019-03-03] MEDS ORDERED: Sodium Chloride 0.9% 15 ML NEB ONE (18:00)
== END 2019-03-03 15:34 | disposition home or self-care (01) ==
LOC: WCC 15:33
PROVIDERS: ATTEND Family Medicine
DX: I87.312 Chronic venous hypertension (idiopathic) with ulcer of left lower extremity (principal); L97.929 Non-pressure chronic ulcer of unspecified part of left lower leg with unspecified severity; I13.0 Hypertensive heart and chronic kidney disease with heart failure and stage 1 through stage 4 chronic kidney disease, or unspecified chronic kidney disease; N18.9 Chronic kidney disease, unspecified; M19.90 Unspecified osteoarthritis, unspecified site; G47.33 Obstructive sleep apnea (adult) (pediatric); D64.9 Anemia, unspecified; N13.30 Unspecified hydronephrosis; N26.1 Atrophy of kidney (terminal); I89.0 Lymphedema, not elsewhere classified; Z86.718 Personal history of other venous thrombosis and embolism; Z85.72 Personal history of non-Hodgkin lymphomas; Z86.711 Personal history of pulmonary embolism
CPT/HCPCS: 97602; A4218

== ENCOUNTER 2019-03-17 16:29 | Outpatient (CLI) | payer MEDICARE ==
--- NOTE | 2019-03-17 17:31 | PRG ---
DATE OF SERVICE: 03/17/2019 HISTORY: Ms. Dodie Trinidad is a very pleasant 83-year-old, accompanied by her daughter, who presents to the [facility] for evaluation of a large wound of the left lateral lower leg subsequent to incision and drainage of a left leg hematoma on 06/06/[address] Robinson Baez. Since the patient's last visit, Ms. Trinidad has been receiving dressing changes of PluroGel, foam, ABDs, and Armen bandages 3 times per week after cleansing and irrigation with the assistance of Home Health. The patient has also been utilizing her lymphedema wraps over the left foot and lower leg. The patient has no complaints today. She denies any fever or chills. OBJECTIVE: VITAL SIGNS: Temperature 98.4, pulse 91, respirations 19, and blood pressure 134/61. EXTREMITIES: A large wound of the left lateral lower leg is present, which measures approximately 7.5 x 3.7 cm. The dimensions of the wound at the time of the patient's visit on 03/03/2019 were approximately 6.4 x 4.4 cm. Granulation tissue is present within the wound margins. Copious green serosanguineous drainage is associated with the wound. No erythema of the skin surrounding the wound is present. No maceration of the skin of the periwound is noted. ASSESSMENT AND PLAN: 1. Chronic venous hypertension with ulceration, dressing changes of PluroGel, foam, ABDs, and an Armen bandage will be continued 3 times per week after cleansing and irrigation with the assistance of Home Health. The patient will continue to utilize lymphedema wraps over the left foot and lower leg. I will see Ms. Trinidad again in 2 weeks. 2. Osteoarthritis. 3. History of non-Hodgkin lymphoma, status post chemotherapy with bleomycin and radiation therapy in 1992. 4. History of pulmonary embolism. 5. Chronic lymphedema. 6. Hypertension. 7. Obstructive sleep apnea. 8. History of deep venous thrombosis. 9. Left atrophic kidney. 10. Chronic kidney disease. 11. Right hydronephrosis. 12. Congestive heart failure. 13. Anemia. Job ID: [id number]
== END 2019-03-17 16:30 | disposition home or self-care (01) ==
LOC: WCC 16:29
PROVIDERS: ATTEND Family Medicine
DX: T81.89XD Other complications of procedures, not elsewhere classified, subsequent encounter (principal); I87.302 Chronic venous hypertension (idiopathic) without complications of left lower extremity; M19.90 Unspecified osteoarthritis, unspecified site; Z85.72 Personal history of non-Hodgkin lymphomas; Z86.711 Personal history of pulmonary embolism; I89.0 Lymphedema, not elsewhere classified; I13.0 Hypertensive heart and chronic kidney disease with heart failure and stage 1 through stage 4 chronic kidney disease, or unspecified chronic kidney disease; G47.33 Obstructive sleep apnea (adult) (pediatric); N26.1 Atrophy of kidney (terminal); N18.9 Chronic kidney disease, unspecified; N13.30 Unspecified hydronephrosis; I50.9 Heart failure, unspecified; D63.1 Anemia in chronic kidney disease

== ENCOUNTER 2019-03-31 14:44 | Outpatient (CLI) | payer MEDICARE ==
[~2019-03-31 14:44] MED LIST changes: -Lidocaine 2% PF 100 mg/5 ml Syringe ONE
--- NOTE | 2019-03-31 16:56 | PRG ---
DATE OF SERVICE: HISTORY: Ms. Dodie Trindiad is a very pleasant 83-year-old, accompanied by her daughter, who presents [facility] for evaluation of a large wound of the left lateral lower leg subsequent to incision and drainage of a left leg hematoma on 06/06/[address] Robinson Baez. Since the patient's last visit, Ms. Trinidad has been receiving dressing changes of PluroGel, foam, an ABD, Webril and an Armen bandage 3 times per week after cleansing and irrigation with the assistance of Home Health. The patient has also been utilizing her lymphedema wraps over the left foot and lower leg in conjunction with the preceding dressing changes. Ms. Trinidad has no complaints today. She denies any fever or chills. PHYSICAL EXAMINATION: VITAL SIGNS: Temperature 98.2, pulse 84, respirations 17, blood pressure 136/62. EXTREMITIES: A large wound of the left lateral lower leg is present which measures approximately 8.7 x 4.0 cm. The dimensions of the wound at the time of the patient's visit on 03/17/2019 were approximately 7.5 x 3.7 cm. Granulation tissue is present within the wound margins. No purulent drainage is associated with the wound. No erythema of the skin surrounding the wound is present. No maceration of the skin of the periwound is noted. ASSESSMENT AND PLAN: 1. Chronic venous hypertension with ulceration. Dressing changes of Hydrofera Blue foam, an ABD, Webril, and an Armen bandage are to be performed 3 times per week after cleansing and irrigation with the assistance of Home Health. The patient is to continue to utilize lymphedema wraps over the left foot and lower leg in conjunction with the preceding dressing changes. I will see Ms. Trinidad again in 2 weeks. 2. Osteoarthritis. 3. History of non-Hodgkin lymphoma, status post chemotherapy with bleomycin and radiation therapy in 1992. 4. History of pulmonary embolism. 5. Chronic lymphedema. 6. Hypertension. 7. Obstructive sleep apnea. 8. History of deep venous thrombosis. 9. Left atrophic kidney. 10. Chronic kidney disease. 11. Right hydronephrosis. 12. Congestive heart failure. 13. Anemia. Job ID: [id number]
== END 2019-03-31 14:45 | disposition home or self-care (01) ==
LOC: WCC 14:44
PROVIDERS: ATTEND Family Medicine
DX: T81.89XD Other complications of procedures, not elsewhere classified, subsequent encounter (principal); I87.392 Chronic venous hypertension (idiopathic) with other complications of left lower extremity; M19.90 Unspecified osteoarthritis, unspecified site; Z85.72 Personal history of non-Hodgkin lymphomas; Z86.711 Personal history of pulmonary embolism; I89.0 Lymphedema, not elsewhere classified; G47.33 Obstructive sleep apnea (adult) (pediatric); Z86.718 Personal history of other venous thrombosis and embolism; N26.1 Atrophy of kidney (terminal); N13.30 Unspecified hydronephrosis; I13.0 Hypertensive heart and chronic kidney disease with heart failure and stage 1 through stage 4 chronic kidney disease, or unspecified chronic kidney disease; N18.9 Chronic kidney disease, unspecified; I50.9 Heart failure, unspecified; D63.1 Anemia in chronic kidney disease
CPT/HCPCS: 97602; A4218

== ENCOUNTER 2019-04-14 00:26 | Inpatient (IN) | payer MEDICARE ==
[2019-04-14] MEDS ORDERED: Morphine 2 MG/ML SYRINGE ONE ×2 (01:31→06:44)
[2019-04-14] MEDS ORDERED: Ondansetron PF 4 MG/2 ML Vial ONE (01:31)
[2019-04-14 01:32] LABS: INR-International Normal Ratio 1.8; PTT 47.8 SEC (22.9-36.1)
[2019-04-14 01:33] LABS: Hemoglobin 10.2 g/dL (12.0-16.0); Mean Corpuscular Hemoglobin 30.2 pg (27.0-31.0); Mean Corpuscular Volume 94.2 fL (78.0-98.0); Mean Platelet Volume 8.2 fL (7.4-10.4); Platelet Count 362 thou/uL (130-400); RBC Distribution Width 14.6 % (11.5-14.5); Red Blood Cell (RBC) Count 3.37 mill/uL (4.20-5.40); White Blood Cell (WBC) Count 29.5 thou/uL (4.8-10.8)
[2019-04-14 01:44] LABS: ALT (SGPT) 14 U/L (8-55); AST (SGOT) 18 U/L (5-34); Albumin 3.4 g/dL (3.4-4.8); Alkaline Phosphatase 96 U/L (40-150); Anion Gap 19 mmol/L (10-20); BUN (Urea Nitrogen) 110 mg/dL (9.8-20.1); Bilirubin, Total 0.6 mg/dL (0.2-1.2); Calc. Creatinine Clearance 0 mL/min (70-130); Calcium 9.5 mg/dL (7.8-10.44); Carbon Dioxide 27 mmol/L (23-31); Chloride 91 mmol/L (98-107); Estimated GFR-MDRD 21; Globulin 2.7 g/dL (2.4-3.5); Glucose 149 mg/dL (83-110); Potassium 5.1 mmol/L (3.5-5.1); Protein, Total 6.1 g/dL (6.0-8.3); Sodium 132 mmol/L (136-145)
[2019-04-14 01:45] LABS: Band 29 % (5-11); Lymphocytes 3 % (21-51); MDiff Complete? YES; Monocytes 1 % (0-10); Neutrophil 67 % (42-75)
[2019-04-14 02:04] LABS: CKMB 1.7 ng/mL (0-6.6)
[2019-04-14] MEDS ORDERED: diphenhydrAMINE 50 MG/ML VIAL ONE (03:25)
[2019-04-14] MEDS ORDERED: diphenhydrAMINE 50 MG/ML VIAL IVP SCH (04:00)
[2019-04-14 05:03] LABS: Lactic Acid 1.9 mmol/L (0.5-2.2)
[2019-04-14] MEDS ORDERED: Sodium Chloride 0.9% 1,000 ML IV SCH (07:30)
[2019-04-14] MEDS ORDERED: Morphine 2 MG/ML SYRINGE SLOW IVP SCH (07:30)
[2019-04-14] MEDS ORDERED: Ondansetron PF 4 MG/2 ML Vial IVP PRN (09:04)
[2019-04-14] MEDS ORDERED: Albuterol Sulfate 2.5 mg/3 ml Neb NEB PRN (09:05)
[2019-04-14] MEDS ORDERED: Benzonatate 100 MG CAP PO PRN (09:05)
[2019-04-14] MEDS ORDERED: Nystatin Powder 15 GM BOT TOP PRN ×2 (09:05→09:43)
[2019-04-14 09:06] VITALS: BMI 35.9
[2019-04-14] MEDS ORDERED: MEROPENEM 1 GM/50 ML 1 GM in Premix Bag 1 BAG IVPB SCH (11:00)
[2019-04-14 12:08] LABS: Bilirubin Negative (Negative); Blood, Urine Trace (Negative); Clarity Clear (Clear); Glucose, Urine (Dipstick) Negative (Negative); Leukocyte Large (Negative); Nitrite Negative (Negative); Protein, Urine (Dipstick) Trace mg/dL (Neg-Trace); Urobilinogen 0.2 mg/dL (0.2-1.0)
[2019-04-14] MEDS: HYDROcodone/Acetaminophen 10/325 mg Tablet PO PRN ×2 (12:08→19:30)
[2019-04-14] MEDS ORDERED: Morphine 4 MG/ML VIAL SLOW IVP PRN (12:18)
[2019-04-14 12:19] LABS: Bacteria/HPF Rare-Few HPF (None Seen); Hyaline Casts/LPF NONE SEEN LPF (0-3 Hyaline); RBC/HPF None Seen HPF (0-3)
[2019-04-14 12:20] LABS: Urine Culture Reflex No No
[2019-04-14] MEDS ORDERED: Warfarin Sodium 3 MG TAB PO SCH (12:30)
[2019-04-14] MEDS ORDERED: Meropenem 1 GM in Sodium Chloride 0.9% 100 ML IVPB SCH (14:00)
[2019-04-14] MEDS ORDERED: Heparin 5,000 UNITS/ML VIAL SC SCH (15:00)
[2019-04-14] MEDS: Lactinex Tablet PO SCH ×2 (15:43→21:22)
[2019-04-14] MEDS: Warfarin Sodium 3 MG TAB PO SCH (17:21)
[2019-04-14] MEDS: traMADol HCl 50 MG TAB PO PRN (18:38)
[2019-04-14] MEDS: Acetaminophen 325 MG TAB PO PRN (18:38)
[2019-04-14] MEDS ORDERED: Non-Formulary Item 1 EACH (Magnesium Oxide [Mag-Oxide] 400 MG) PO SCH (21:00)
[2019-04-14] MEDS ORDERED: Famotidine 20 MG TAB PO SCH (21:00)
[2019-04-14] MEDS ORDERED: Meropenem 0.5 GM in Sodium Chloride 0.9% 100 ML IVPB SCH (21:00)
[2019-04-14] MEDS ORDERED: Non-Formulary Item 1 EACH (Ferrous Sulfate 325 MG) PO SCH (21:00)
[2019-04-14] MEDS: Gabapentin 100 MG CAP PO SCH (21:22)
[2019-04-14] MEDS: Magnesium Oxide 400 MG TAB PO SCH (21:22)
[2019-04-14] MEDS: Ferrous Sulfate 325 MG TAB PO SCH (21:23)
[2019-04-14] MEDS: Docusate 100 MG CAP PO SCH (21:23)
[2019-04-14] MEDS: Melatonin 3 MG TAB PO PRN (21:40)
--- NOTE | 2019-04-15 00:22 | CON ---
DATE OF CONSULTATION: REASON FOR CONSULTATION: Left lower extremity cellulitis. HISTORY OF PRESENT ILLNESS: An 83-year-old patient known to us from prior visits. Last time, I saw her was in August 2018 when she presented with a history of non-Hodgkin's lymphoma in remission for many years and prior episodes of deep vein thrombosis, degenerative arthritis and right knee replacement, a hematoma in the left leg which required surgical debridement. She also had an infection on the right total knee replacement site with coagulase negative Staph, which was treated with vancomycin and is currently on suppressive doxycycline. At this time, she presents with erythema in the left lower extremity extending from the thigh all the way to the ankle associated with fever and general malaise, a very sudden onset. The patient has this shallow, but wide ulcers in the left leg, which are steadily improving. The initial vital signs with a blood pressure 89/42, pulse 86, respirations 20, temperature 98.7, and O2 saturation 96%. The exam was remarkable for the ulcers in the left leg and the extensive area of erythema, cellulitis with marked tenderness extending from the ankle all the way to the thigh close to the groin area. Currently, she is awake. She is still having marked pain in the left lower extremity. She denies any headaches. No visual symptoms, sore throat, odynophagia or dysphagia. No cough, sputum production or chest pain. No abdominal pain. Voiding in the diaper. 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 Switched to Keflex temporarily. PAST SURGICAL HISTORY: Cholecystectomy, patellar tendon repair following TKR. ALLERGIES: PENICILLIN, LATEX. SOCIAL HISTORY: Never smoker. FAMILY HISTORY: Noncontributory. CURRENT MEDICATIONS: 1. Tylenol. 2. Austin. 3. Floranex. 4. Ventolin. 5. Zyloprim. 6. Tessalon. 7. Colace. 8. Cymbalta. 9. Pepcid. 10. Feosol. 11. Flonase. 12. Neurontin. 13. Magnesium. 14. Meropenem. 15. Warfarin. PHYSICAL EXAMINATION: VITAL SIGNS: T-max 99.4, blood pressure 118/53, pulse 80, respirations 20, O2 sat 94%. SKIN: Exam shows those round shallow with granulation tissue cover. There was a sort of greenish exudate covering the wound right after it was removed suggestive of Pseudomonas colonization. She has a peripheral IV access and is urinating in the diaper. No lymphadenopathy. HEENT: Ocular movements conjugate. Oral cavity with no eagle teeth remaining in place. NECK: Supple. LUNGS: Symmetric. Clear breath sounds. HEART: S1, S2 regular rate. No S3 or S4. ABDOMEN: Soft, not distended or tender. No ascites. EXTREMITIES: Marked tenderness in the left lower extremity. Pulses are 1+ in dorsalis pedis. There is 2+ edema. NEUROLOGIC: The patient is awake. She suffers from dementia and she does not have a lot of recollection of the events. LABORATORY DATA: White cell count 29,000, hemoglobin 10.2, platelets 362. INR 1.8. Sodium 132, creatinine 2.24 with a normal liver profile. Troponin 0.07. BNP 118. Albumin 3.4. Urinalysis with 4-6 wbc's. Microbiology with pending specimens, Pseudomonas aeruginosa from urine culture from December. Chest x-ray was not repeated at this time. ASSESSMENT: 1. Cognitive dysfunction. 2. Thromboembolism, previously on Coumadin with a hematoma in the left leg, which required debridement and now she has chronic wounds. 3. Lymphedema. 4. Prior episodes of cellulitis. DISCUSSION: The patient will need continuation of Pseudomonas coverage for the cellulitis in view of the findings in the wound of the left lower extremity. This could be maintained with meropenem. It is more likely that beta-hemolytic streptococci are the culprit here, but we will wait for further improvement before we would make the switch. After completion of the treatment, she will need to have added beta-hemolytic streptococcal prophylaxis to the doxycycline that has been prescribed because of the TKR infection by coagulase-negative Staphylococcus. Job ID: [id number]
[2019-04-15] MEDS: HYDROcodone/Acetaminophen 10/325 mg Tablet PO PRN ×3 (00:28→20:02)
[2019-04-15 04:40] LABS: #Eosinphils 0.1 thou/uL (0.0-0.7); #Monocytes 0.5 thou/uL (0.11-0.59); #Neutrophils 14.1 thou/uL (1.40-6.50); %Basophils 0.1 % (0.0-1.0); %Eosinophils 0.7 % (0.0-10.0); %Lymphocytes 6.2 % (21.0-51.0); %Monocytes 3.3 % (0.0-10.0); %Neutrophils 89.6 % (42.0-75.0); Hemoglobin 8.8 g/dL (12.0-16.0); Mean Corpuscular HGB CONC 31.7 g/dL (32.0-36.0); Mean Corpuscular Hemoglobin 29.8 pg (27.0-31.0); Mean Corpuscular Volume 94.2 fL (78.0-98.0); Mean Platelet Volume 8.4 fL (7.4-10.4); Platelet Count 239 thou/uL (130-400); RBC Distribution Width 14.8 % (11.5-14.5); Red Blood Cell (RBC) Count 2.93 mill/uL (4.20-5.40); White Blood Cell (WBC) Count 15.8 thou/uL (4.8-10.8)
--- NOTE | 2019-04-15 04:52 | HP ---
CHIEF COMPLAINT: Left leg erythema and fever. HISTORY OF PRESENT ILLNESS: The patient is an 83-year-old female with past medical history of atrial fibrillation, history of CKD, history of hypertension, and anemia, who presents to the hospital with worsening pain to her left leg and erythema of the left leg. The patient states that she normally goes to Wound Care and saw the wound care doctor, and the last time she saw the wound care physician was on March 31. The patient has a left lower leg wound from hematoma that occurred after her fall due to her being on Coumadin. The patient's daughter states that she has been doing well. There were some recent changes in her wound care dressing and also medication. According to the daughter, she stated that the wound care physician wanted that the wound to be more drier take off tender. The patient's daughter stated that she started noticing some discharge starting Friday. However, I attributed due to the new changes in her lower wound medications; however as the days progressed, she started having significant erythema trending up all the way to her left hip and also a fever. At this time, she was brought her to the ER for further evaluation. The patient currently denies any nausea, vomiting, diarrhea, chest pain, any fevers, or any chills. PAST MEDICAL HISTORY: 1. Right knee cellulitis. 2. Hypertension. 3. Chronic lymphedema. 4. History of deep vein thrombosis and pulmonary embolism. 5. History of non-Hodgkin's lymphoma, status post chemotherapy. 6. Wound over the left lateral lower leg, I and D due to a hematoma in May of 2018. 7. Obstructive sleep apnea. 8. Chronic left atrophy of the kidney. 9. CKD stage 3. 10. Anemia. PAST SURGICAL HISTORY: She has had an, 1. I and D of the left leg hematoma. 2. Cholecystectomy. 3. Bilateral cataract surgery. 4. Right total knee arthroplasty with subsequent revision after the patellar tendon repair. ALLERGIES: SHE HAS ALLERGIES TO LATEX, PENICILLIN, AND NITROFURANTOIN. HOME MEDICATIONS: As of the following, she takes; 1. Coumadin. 2. Gabapentin at night and 100 mg in the morning. 3. Ferrous sulfate 325 p.o. t.i.d. 4. Colace 100 mg b.i.d. 5. Allopurinol 100 mg daily. 6. Melatonin mg at bedtime. 7. Marshall 1 p.o. at bedtime. 8. Protonix 40 mg daily. SOCIAL HISTORY: She lives at home with her 2 daughters. She is a full code and no smoking history or alcohol history. FAMILY HISTORY: Negative for diabetes and heart disease. REVIEW OF SYSTEMS: All negative except for the ones mentioned above in HPI. PHYSICAL EXAMINATION: VITAL SIGNS: Are as of the following; temperature of 98.8, heart rate of 75, blood pressure of 140/60, oxygen saturation of 98% on room air. GENERAL: She is awake, alert, and oriented x3. Does not appear in any distress. HEENT: Normocephalic, atraumatic. No lymphadenopathy noted. Pupils are equal and reactive to light. CV: S1 and S2 present. No murmurs, rubs, or gallops. LUNGS: Clear to auscultation. No rhonchi or wheezes noted. ABDOMEN: Obese. Bowel sounds are present x2. No pain upon palpation. NEUROVASCULAR: No focal deficits noted. SKIN: She does have a significant wound to her left lower kumar area and has significant erythema tracking all the way up to her left hip area. EXTREMITIES: Pedal pulses are present x2. She has significant lower extremity edema. LABORATORY RESULTS: As of the following; WBCs of 29.5, hemoglobin of 10.2, hematocrit of 31.8, platelets of 362. Chemistry; sodium of 132, potassium of 5.1, BUN of 110, creatinine of 2.24. Initial lactic acid was 3.5, repeat was 1.9. ASSESSMENT AND PLAN: The patient is an 83-year-old female who presents to the hospital with fevers and worsening left lower extremity erythema. 1. Left leg cellulitis. The patient does have a wound on her left extremity. Upon my evaluation, the wound actually looked better than the picture that the daughter had on her phone when she initially came into the ER. However, her erythema all the way tracks up to her left hip. At this time, upon reviewing her records, she has had multiple Pseudomonas bacteremia, Pseudomonas urinary tract infections and also MRSA in the past. I will start her on meropenem given her allergy to multiple other medications. The patient's daughter states that she was given Levaquin and vancomycin and started having itching on the site of the infusion and was given some Benadryl. I will also consult Infectious Disease for further evaluation. 2. Acute kidney injury on chronic kidney disease stage 4. I will start her on some gentle hydration and continue to monitor. 3. Lower extremity lymphedema. The patient according to her daughter has gone to see a lymphedema specialist who recommended a specific pump to be placed, however, currently given her infection, nothing on the left leg. However, the patient's daughter wanted that the pump to be started on the right leg. According to the patient's daughter, she stated that they had done a Doppler recently, which was negative for the venous causes of her lymphedema and attributed this most likely to lymphedema versus venous causes of lower extremity lymphedema. I will hold off on diuretics for now given her current clinical picture of sepsis. We will continue to monitor. 4. Lactic acidosis has improved. 5. Deep venous thrombosis prophylaxis. The patient is already on Coumadin. I will continue the Coumadin. Job ID: [id number]
[2019-04-15] MEDS: Sodium Chloride 0.45% 1,000 ML IV SCH (04:53)
[2019-04-15 04:54] LABS: Anion Gap 16 mmol/L (10-20); BUN (Urea Nitrogen) 122 mg/dL (9.8-20.1); Calc. Creatinine Clearance 23 mL/min (70-130); Calcium 9.4 mg/dL (7.8-10.44); Carbon Dioxide 24 mmol/L (23-31); Chloride 93 mmol/L (98-107); Estimated GFR-MDRD 17; Glucose 113 mg/dL (83-110); Potassium 4.8 mmol/L (3.5-5.1); Sodium 128 mmol/L (136-145)
[2019-04-15] MEDS ORDERED: Fluticasone Propionate Nasal Spray 16 gm Bottle NASAL SCH (09:00)
[2019-04-15] MEDS: Meropenem 500 MG in Sodium Chloride 0.9% 100 ML IVPB SCH ×3 (09:07→22:03)
[2019-04-15] MEDS: Allopurinol 100 MG TAB PO SCH (09:19)
[2019-04-15] MEDS: Ferrous Sulfate 325 MG TAB PO SCH ×2 (09:20→21:58)
[2019-04-15] MEDS: Docusate 100 MG CAP PO SCH (09:20)
[2019-04-15] MEDS: DULoxetine 60 MG CAP PO SCH (09:20)
[2019-04-15] MEDS: Lactinex Tablet PO SCH ×3 (09:21→21:57)
[2019-04-15] MEDS: Gabapentin 100 MG CAP PO SCH ×2 (09:21→21:57)
[2019-04-15] MEDS: Magnesium Oxide 400 MG TAB PO SCH ×2 (10:19→21:58)
[2019-04-15] MEDS: Multivit, Therapeutic 1 TAB PO SCH (10:19)
[2019-04-15] MEDS: Fluticasone Propionate Nasal Spray 16 gm Bottle NASAL SCH (10:20)
--- NOTE | 2019-04-15 11:33 | PRG ---
DATE OF SERVICE: 04/15/2019 SUBJECTIVE: The patient and her daughter feel like her lower extremity are still erythematous, but the warmth that has somewhat improved since yesterday. She has been eating and drinking. The nurses have had difficulty getting IV site. OBJECTIVE: VITAL SIGNS: T-max 101.4, pulse 82, respirations 20, O2 saturation 93% on 2 L, blood pressure 95/53. GENERAL APPEARANCE: Obese, age-appropriate female, slightly hard of hearing. Awake, alert. HEART: Regular without murmurs. LUNGS: Clear bilaterally. ABDOMEN: Soft, nontender. EXTREMITIES: Left lower extremity has bilateral compression wraps with erythema extending on the left leg up to the mid thigh area. Slightly warm to touch and blanchable. NEUROLOGIC: She is nonfocal. LABORATORY DATA: White count 15.8, hemoglobin 8.8, platelets 239. Sodium 128, potassium 4.8, chloride 93, CO2 of 24, BUN 122, creatinine is 2.72, glucose 113. IMPRESSION AND PLAN: 1. Cellulitis of the left lower extremity. History of chronic wound following hematoma exacerbated by chronic lymphedema. The patient has been seen by Dr. Cai. Recovering Pseudomonas, although it is more likely a beta-hemolytic strep. Continue with meropenem for now. 2. Acute on chronic kidney injury. The patient has chronic kidney disease stage 4. Currently, her creatinine continues to climb. Her GFR continues to decline. She has solitary kidney. She is followed by Dr. Sebastian. I have discussed with him. He will follow up and see the patient shortly. 3. Difficult to access. The patient has difficult time with establishing a peripheral IV. Given her renal function, trying to avoid midlines or PICC lines. She needed a central line. Also discussed this with Dr. Sebastian. We will need to understand her potential risk for dialysis and the need to preserve her peripheral veins. 4. Lactic acidosis, improved. 5. Hyponatremia. The patient did receive hydration with normal saline that was changed to half-normal saline that will be changed back to normal saline. 6. Chronic lower extremity lymphedema. Continue with wound care. Job ID: [id number]
[2019-04-15] MEDS ORDERED: Senokot 8.6 MG TAB PO PRN (12:32)
--- NOTE | 2019-04-15 12:43 | CON ---
DATE OF CONSULTATION: 04/15/2019 CONSULTING PHYSICIAN: Dr. Lauren. REASON FOR CONSULT: Acute kidney injury. REASON FOR ADMISSION: Left leg swelling. HISTORY OF PRESENT ILLNESS: An 83-year-old female with history of CKD, lymphedema, DVT, came to the hospital with the above complaints and was found to have elevated creatinine. She does follow with Dr. Sebastian with a baseline creatinine of 1.5-1.6. No nausea, vomiting reported and she is only on hydration. PAST MEDICAL HISTORY: Positive for hypertension, lymphedema, DVTs, lymphoma, obstructive sleep apnea, CKD. PAST SURGICAL HISTORY: I and Ds, cholecystectomy, cataract surgery, knee surgery. HOME MEDICATIONS: 1. Coumadin. 2. Gabapentin. 3. Ferrous sulfate. 4. Colace. 5. Allopurinol. 6. Melatonin. 7. Protonix. ALLERGIES: LATEX, PENICILLIN, NITROFURANTOIN. SOCIAL HISTORY: No smoking, alcohol or illicit drugs. FAMILY HISTORY: No history of kidney disease. REVIEW OF SYSTEMS: CONSTITUTIONAL: Negative for weight loss or gain, ability to conduct usual activities. SKIN: Negative for rash, itching. EYES: Negative for double vision, pain. ENT/MOUTH: Negative for nose bleeding, neck stiffness, pain, tenderness. CARDIOVASCULAR: Negative for palpitations, dyspnea on exertion, orthopnea. RESPIRATORY: Negative for shortness of breath, wheezing, cough, hemoptysis, fever or night sweats. GASTROINTESTINAL: Negative for poor appetite, abdominal pain, heartburn, nausea, vomiting, constipation, or diarrhea. GENITOURINARY: Negative for urgency, frequency, dysuria, nocturia. MUSCULOSKELETAL: Negative for pain, swelling. NEUROLOGIC/PSYCHIATRIC: Negative for anxiety, depression. ALLERGY/IMMUNOLOGIC: Negative for skin rash, bleeding tendency. Rest are negative. PHYSICAL EXAMINATION: GENERAL: An obese female, in no apparent distress. VITAL SIGNS: Temperature 97.4, pulse 82, respiratory 20, blood pressure 95/53. HEENT: Atraumatic, normocephalic. Oral mucosa is moist NECK: Supple. CARDIOVASCULAR: S1, S2 heard. Rate and rhythm regular. RESPIRATORY: Clear to auscultation. GASTROINTESTINAL: Abdomen is soft. MUSCULOSKELETAL: 1+ edema. DERMATOLOGIC: No skin rash. NEUROLOGIC: Alert and awake and oriented X3. No focal neurologic deficits. PSYCHIATRIC: Mood and affect normal. LABORATORY DATA: Hemoglobin is 8.8, potassium is 4.8 ,BUN is 122, creatinine is 2.7. ASSESSMENT AND PLAN: 1. Acute kidney injury on chronic kidney disease, stage 3. Avoid nephrotoxins. Continue hydration. 2. Hyponatremia. 3. Mild . 4. Metabolic acidosis. 5. Edema. 6. History of lymphedema. 7. Anemia of chronic disease. 8. Hypertension stable. Currently hypotension. 9. Continue hydration if tolerated. Avoid nephrotoxins. Renally dose the medications. We will check renal ultrasound. Continue supportive care including antibiotics. We will follow. Job ID: [id number]
[2019-04-15] MEDS ORDERED: Senokot 8.6 MG TAB PO SCH (12:45)
--- NOTE | 2019-04-15 15:56 | ULT ---
ULTRASOUND RENAL BILATERAL STANDARD 04/15/19 HISTORY: Acute kidney injury. COMPARISON: None. FINDINGS: Real time jones scale and color evaluation of the kidneys and urinary bladder was performed. Urinary bladder is not well seen. Right kidney measures 9.4 x 4.6 x 5 cm and the left kidney measures 8.6 x 4.8 x 5 cm. There is moderate bilateral hydronephrosis, worse on the right. IMPRESSION: Moderate bilateral hydronephrosis. CT recommended to evaluate for distal obstructive process. POS: CET
[2019-04-15] MEDS: Warfarin Sodium 3 MG TAB PO SCH (16:49)
--- NOTE | 2019-04-15 18:24 | PRG ---
DATE OF SERVICE: 04/15/2019 SUBJECTIVE: Ms. Trinidad is a bit hypotensive. Her IV fluids started to increase. She is still in less pain in the left lower extremity. No respiratory symptoms. OBJECTIVE: VITAL SIGNS: Temperature is max 101 yesterday at 9 p.m. She has been afebrile today. Blood pressure 104/55, pulse 80, respirations 14, and O2 saturation 97. She has a nasal CPAP. GENERAL: She does not appear in distress. LUNGS: Symmetric, clear breath sounds. HEART: S1 and S2, regular rate. ABDOMEN: Soft. EXTREMITIES: The left leg with less erythema than yesterday and less swelling as well. Less tenderness. LABORATORY DATA: White cell count is down to 15.8, hemoglobin 8.8, and platelets 239. Creatinine is at 2.72, which is the worse she has had in a while. Two sets of blood cultures negative thus far. IMAGING: Renal ultrasound with moderate bilateral hydronephrosis, worse on the right side. ASSESSMENT AND DISCUSSION: Cognitive dysfunction. Thromboembolism, on Coumadin. Hematoma with debridement. Prior episodes of cellulitis and now with another episode of cellulitis. Renal insufficiency with worsening and evidence of hydronephrosis, possible urinary retention. We will evaluate a bladder ultrasound and a CT stone protocol. May need a Schroeder catheter inserted. Continue current regimen. Our goal is to eventual transition to oral Keflex. Job ID: [id number] MTDD
[2019-04-15] MEDS: Famotidine 20 MG TAB PO SCH (21:45)
--- NOTE | 2019-04-15 21:56 | CT ---
CT abdomen and pelvis noncontrast HISTORY: Abdominal pain. Hydronephrosis. COMPARISON: 08/17/2017. FINDINGS: Dilatation of each renal collecting system and ureter has progressed slightly since the gurwinder or study without stone evident. Urinary bladder is partially distended. No stones are visible. Severe atrophy of the left kidney and mild atrophy of the right kidney are similar in appearance to t he prior study. Small renal cysts. Small amount of bilateral pleural fluid and bibasilar atelectasis. Gallbladder surgically absent. Lac k of contrast limits evaluation of the soft tissues. Prominent calcification throughout the arterial structures. Diverticulosis without evidence of diverticulitis. Prominent degenerative change s lumbar spine. Chronic deformity of the left hip. IMPRESSION: Interval increase in bilateral hydronephrosis to the level of the urinary bladder. No pat hologic cause is apparent. Chronic reflux?. Chronic atrophy of the left kidney. Small bilateral pleural effusions. Atherosclerosis. Chronic-type findings are stable.
[2019-04-15] MEDS: Melatonin 3 MG TAB PO PRN (21:59)
[2019-04-15] MEDS: traMADol HCl 50 MG TAB PO PRN (22:15)
[2019-04-16] MEDS: Docusate 100 MG CAP PO SCH ×3 (00:59→20:29)
[2019-04-16] MEDS: Sodium Chloride 0.45% 1,000 ML IV SCH (03:44)
[2019-04-16] MEDS: HYDROcodone/Acetaminophen 10/325 mg Tablet PO PRN ×2 (05:47→20:31)
[2019-04-16] MEDS: Acetaminophen 325 MG TAB PO PRN (08:23)
[2019-04-16] MEDS: traMADol HCl 50 MG TAB PO PRN ×2 (08:24→16:26)
[2019-04-16 08:35] LABS: #Eosinphils 0.2 thou/uL (0.0-0.7); #Lymphocytes 0.7 thou/uL (1.20-3.40); #Monocytes 0.4 thou/uL (0.11-0.59); %Eosinophils 2.2 % (0.0-10.0); %Lymphocytes 8.4 % (21.0-51.0); %Monocytes 4.9 % (0.0-10.0); %Neutrophils 84.6 % (42.0-75.0); Hemoglobin 8.4 g/dL (12.0-16.0); Mean Corpuscular HGB CONC 32.9 g/dL (32.0-36.0); Mean Corpuscular Hemoglobin 30.8 pg (27.0-31.0); Mean Corpuscular Volume 93.9 fL (78.0-98.0); Mean Platelet Volume 8.1 fL (7.4-10.4); Platelet Count 248 thou/uL (130-400); RBC Distribution Width 14.6 % (11.5-14.5); Red Blood Cell (RBC) Count 2.73 mill/uL (4.20-5.40); White Blood Cell (WBC) Count 8.3 thou/uL (4.8-10.8)
[2019-04-16 09:36] LABS: Anion Gap 14 mmol/L (10-20); Calc. Creatinine Clearance 27 mL/min (70-130); Calcium 9.7 mg/dL (7.8-10.44); Carbon Dioxide 26 mmol/L (23-31); Chloride 90 mmol/L (98-107); Estimated GFR-MDRD 20; Glucose 106 mg/dL (83-110); Potassium 5.2 mmol/L (3.5-5.1); Sodium 125 mmol/L (136-145)
[2019-04-16] MEDS: Allopurinol 100 MG TAB PO SCH (09:36)
[2019-04-16] MEDS: Ferrous Sulfate 325 MG TAB PO SCH ×2 (09:36→20:29)
[2019-04-16] MEDS: Lactinex Tablet PO SCH ×3 (09:36→20:31)
[2019-04-16] MEDS: DULoxetine 60 MG CAP PO SCH (09:37)
[2019-04-16] MEDS: Gabapentin 100 MG CAP PO SCH ×2 (09:37→20:30)
[2019-04-16] MEDS: Multivit, Therapeutic 1 TAB PO SCH (09:37)
[2019-04-16] MEDS: Magnesium Oxide 400 MG TAB PO SCH ×2 (09:37→20:30)
[2019-04-16] MEDS: Fluticasone Propionate Nasal Spray 16 gm Bottle NASAL SCH (09:38)
[2019-04-16 09:48] LABS: BUN (Urea Nitrogen) 124 mg/dL (9.8-20.1)
[2019-04-16] MEDS: Meropenem 500 MG in Sodium Chloride 0.9% 100 ML IVPB SCH ×2 (09:52→20:29)
[2019-04-16] MEDS ORDERED: Senokot 8.6 MG TAB PO PRN (10:19)
--- NOTE | 2019-04-16 10:37 | PDOC.PN ---
- Subjective Encounter Start Date: 04/16/19 Encounter Start Time: 10:36 Doing ok. No complaints. Denies SOB. - Objective Resuscitation Status - Order Detail: 04/14/19 09:04 Resuscitation Status Routine Resuscitation Status: FULL: Full Resuscitation Vital Signs & Weight: Vital Signs (12 hours) Temp Pulse Resp BP Pulse Ox 04/16/19 06:58 97.4 F L 82 16 111/55 L 94 L 04/16/19 05:32 97 Weight Admit Weight 209 lb 3.2 oz Weight 209 lb 3.2 oz I&O: 04/15/19 04/16/19 04/17/19 06:59 06:59 06:59 Intake Total 2540 1105 Balance 2540 1105 Result Diagrams: 04/16/19 08:25 04/16/19 08:25 Phys Exam - Physical Examination Constitutional: NAD Obese Respiratory: no wheezing, no rales, no rhonchi Cardiovascular: RRR II/IV LUSB M Gastrointestinal: soft, non-tender, no distention Severe B LE lymphedema. LLE with dramatically reduced redness. Wound Care just completed dressing change and wrap. Neurological: non-focal Dx/Plan (1) Cellulitis Code(s): L03.90 - CELLULITIS, UNSPECIFIED Status: Acute (2) Hyponatremia Code(s): E87.1 - HYPO-OSMOLALITY AND HYPONATREMIA Status: Acute (3) Acute kidney injury Code(s): N17.9 - ACUTE KIDNEY FAILURE, UNSPECIFIED Status: Acute (4) Anemia, macrocytic Code(s): D53.9 - NUTRITIONAL ANEMIA, UNSPECIFIED Status: Chronic (5) Chronic acquired lymphedema Code(s): I89.0 - LYMPHEDEMA, NOT ELSEWHERE CLASSIFIED Status: Chronic (6) Systolic CHF, chronic Code(s): I50.22 - CHRONIC SYSTOLIC (CONGESTIVE) HEART FAILURE Status: Acute (7) Dyslipidemia Code(s): E78.5 - HYPERLIPIDEMIA, UNSPECIFIED Status: Chronic (8) History of deep venous thrombosis or pulmonary embolus Code(s): BZO7795 - Status: Chronic Comment: Coumadin stopped last admission (9) Hypertension Code(s): I10 - ESSENTIAL (PRIMARY) HYPERTENSION Status: Chronic Qualifiers: Hypertension type: essential hypertension Qualified Code(s): I10 - Essential (primary) hypertension (10) Leg wound, left Code(s): S81.802A - UNSPECIFIED OPEN WOUND, LEFT LOWER LEG, INITIAL ENCOUNTER Status: Chronic (11) Obesity (BMI 30-39.9) Code(s): E66.9 - OBESITY, UNSPECIFIED Status: Chronic (12) Hypotension Status: Acute (13) Ureteral reflux Status: Acute (14) Hydroureter Code(s): N13.4 - HYDROURETER Status: Acute - Plan * LLE cellulitis on top of severe chronic lymphedema and chronic wound. * Looks much improved. * ID following. * On Meropenem to cover hx of pseudomonas although more likely strep. * Defer to ID for abx recs. * Continue wound care. * Renal function very slightly better. Still has pre-renal indices. * Diuretics held. Gentle hydration. * Nephrology following. * Hyponatremia worse. Stop the hypotonic saline. * Defer to nephrology if any addition fluids are needed. With hx of systolic dysfunction, must be cautious. So far tolerating well. * BP is borderline. With low Na, high K and borderline BP, concerning for possible adrenal insuff. Will discuss possible hydrocortisone with nephrology. * Has not been on any steroids recently. * B hydrdo on US, CT. Looks like chronic reflux.
--- NOTE | 2019-04-16 12:10 | EKG ---
Test Reason : Blood Pressure : / mmHG Vent. Rate : 088 BPM Atrial Rate : 088 BPM P-R Int : 208 ms QRS Dur : 124 ms QT Int : 392 ms P-R-T Axes : 032 -49 052 degrees QTc Int : 474 ms Sinus rhythm with Premature atrial complexes Left anterior fascicular block Left ventricular hypertrophy with QRS widening Abnormal ECG Confirmed by ANDRES PEREA DO ([id number]), editor city [place]SAB[place] HUGHES ([id number]) on 04/16/2019 12:09:32 PM Referred By: Confirmed By:ANDRES PEREA DO
[2019-04-16] MEDS: Hydrocortisone Sod Succ/PF 100 mg/2 ml Vial IVP SCH ×3 (12:16→23:55)
[2019-04-16 12:49] LABS: Prothrombin Time 22.5 SEC (12.0-14.7)
--- NOTE | 2019-04-16 16:30 | PQF ---
MARC KAYE DAVID R MD [id number] CLINICAL DOCUMENTATION IMPROVEMENT CLARIFICATION FORM: ICD-10 Updated PLEASE DO AN ADDENDUM TO THE PROGRESS NOTE WITH ANY DOCUMENTATION UPDATES OR ADDITIONS AND CARRY THROUGH TO DC SUMMARY. THANK YOU. DATE: 04/16/19 ATTN: DR. Marisela MOREL Please exercise your independent, professional judgment in responding to the clarification form. Clinical indicators are provided on the bottom of this form for your review. Please check appropriate box(es): [ x ] Sepsis due to: (Pna, UTI, gangrenous gall bladder, etc.) LLE cellulitis [ ] Severe sepsis with acute organ dysfunction of: (Examples: respiratory failure, encephalopathy, acute kidney failure, other) [ ] Localized infection without sepsis [ ] Other diagnosis [ ] Unable to determine In addition, please specify: Present on Admission (POA): [ x ] Yes [ ] No [ ] Unable to determine For continuity of documentation, please document condition throughout progress notes and discharge summary. Thank You. CLINICAL INDICATORS - SIGNS / SYMPTOMS / LABS 04/14 : ED PHYSICIAN DX: SEPSIS, CELLULITIS OF LLE, CHRONIC LLE WOUND, FEVER 04/14 WBC 29.5 04/14 LACTIC ACID 3.5 04/14 ED REPORT: FAMILY REPORTS PATIENT HAD FEVERS OF 101 PRIOR TO REPORTING TO ED. 04/14 H & P (LIANET) ASSESSMENT: 1) LEFT LEG CELLULITIS 04/15 PN ( ADRIEL) IMPRESSION/PLAN : 1) CELLULITIS OF LLE. HISTORY OF CHRONIC WOUND FOLLOWING HEMATOMA EXACERBATED BY CHRONIC LYMPHEDEMA RISK: DX OF CELLULITIS (H & P ) LIANET HX CHRONIC LEG WOUNDS (PN) ADRIEL ADVANCED AGE (83) TREATMENTS: INFECTIOUS DISEASE CONSULT SUPPLEMENTAL O2 (04/14-PRESENT) MEROPENEM IV (04/14 - PRESENT) SERIAL LABS (CBC) (This form is maintained as a part of the permanent medical record) 2014 [employer]. All Rights Reserved [email or web address] [phone] ANA
[2019-04-16] MEDS: Warfarin Sodium 3 MG TAB PO SCH (16:34)
--- NOTE | 2019-04-16 17:29 | PRG ---
DATE OF SERVICE: 04/16/2019 SUBJECTIVE: Patient was seen and examined at bedside and overnight events noted. Patient denies any shortness of breath or chest pain or palpitation. No history of nausea or vomiting or diarrhea or fever or chills or cramps. OBJECTIVE: GENERAL: This is an obese female in no apparent distress. VITAL SIGNS: Temperature . Heart rate 95. Respiratory rate 14. Blood pressure 116/55. HEENT: Atraumatic, normocephalic. Oral mucosa is moist NECK: Supple. CARDIOVASCULAR: S1, S2 heard. Rate and rhythm regular. RESPIRATORY: Clear to auscultation. GASTROINTESTINAL: Abdomen is soft. MUSCULOSKELETAL: No tenderness. No edema. DERMATOLOGIC: No skin rash. NEUROLOGIC: Alert and awake and oriented X3. No focal neurologic deficits. Moving all the extremities. PSYCHIATRIC: Mood and affect normal. LABORATORY DATA: Potassium is 5.2, BUN is 124, creatinine is 2.3. ASSESSMENT AND PLAN: 1. Acute kidney injury. Creatinine is better. 2. Azotemia with elevated BUN. 3. Hyponatremia, acute. Changing IV fluids. 4. Hyperkalemia. Limit potassium intake. 5. Edema. 6. History of lymphedema. 7. Chronic hydronephrosis. We will follow. Avoid nephrotoxins. Creatinine is better. Job ID: [id number]
--- NOTE | 2019-04-16 20:28 | PDOC.PN ---
- Subjective Encounter Start Date: 04/16/19 Encounter Start Time: 09:00 Feels ok. No specific complaints. Leg is better. - Objective Resuscitation Status - Order Detail: 04/14/19 09:04 Resuscitation Status Routine Resuscitation Status: FULL: Full Resuscitation Vital Signs & Weight: Vital Signs (12 hours) Temp Pulse Resp BP BP Pulse Ox 04/16/19 19:44 98.3 F 72 20 122/66 97 04/16/19 16:04 97.4 F L 91 16 119/55 L 91 L 04/16/19 16:00 91 L 04/16/19 14:30 96.5 F L 95 14 116/55 L 95 04/16/19 12:00 95 04/16/19 09:20 94 L Weight Admit Weight 209 lb 3.2 oz Weight 209 lb 3.2 oz I&O: 04/15/19 04/16/19 04/17/19 06:59 06:59 06:59 Intake Total 2540 1105 1510 Balance 2540 1105 1510 Result Diagrams: 04/16/19 08:25 04/16/19 08:25 Phys Exam - Physical Examination Constitutional: NAD obese Respiratory: no wheezing, no rales, clear to auscultation bilateral Cardiovascular: RRR, no significant murmur Gastrointestinal: soft, non-tender, no distention, positive bowel sounds BLE edema. Dressing, wraps. No visible erythema above wrap. Neurological: non-focal Psychiatric: normal affect, A&O x 3 Dx/Plan (1) Cellulitis Code(s): L03.90 - CELLULITIS, UNSPECIFIED Status: Acute (2) Hyponatremia Code(s): E87.1 - HYPO-OSMOLALITY AND HYPONATREMIA Status: Acute (3) Acute kidney injury Code(s): N17.9 - ACUTE KIDNEY FAILURE, UNSPECIFIED Status: Acute (4) Anemia, macrocytic Code(s): D53.9 - NUTRITIONAL ANEMIA, UNSPECIFIED Status: Chronic (5) Chronic acquired lymphedema Code(s): I89.0 - LYMPHEDEMA, NOT ELSEWHERE CLASSIFIED Status: Chronic (6) Systolic CHF, chronic Code(s): I50.22 - CHRONIC SYSTOLIC (CONGESTIVE) HEART FAILURE Status: Acute (7) Dyslipidemia Code(s): E78.5 - HYPERLIPIDEMIA, UNSPECIFIED Status: Chronic (8) History of deep venous thrombosis or pulmonary embolus Code(s): [id number] - Status: Chronic Comment: Coumadin stopped last admission (9) Hypertension Code(s): I10 - ESSENTIAL (PRIMARY) HYPERTENSION Status: Chronic Qualifiers: Hypertension type: essential hypertension Qualified Code(s): I10 - Essential (primary) hypertension (10) Leg wound, left Code(s): S81.802A - UNSPECIFIED OPEN WOUND, LEFT LOWER LEG, INITIAL ENCOUNTER Status: Chronic (11) Obesity (BMI 30-39.9) Code(s): E66.9 - OBESITY, UNSPECIFIED Status: Chronic (12) Hypotension Status: Acute (13) Ureteral reflux Status: Acute (14) Hydroureter Code(s): N13.4 - HYDROURETER Status: Acute - Plan * Discussed the findings on the imaging of the kidneys. Chronic ureteral reflux. No good treatment options. * Cellulitis is much improved. Will continue Meropenem for today. ID following. * Na is down, K is up and BP borderline. Discussed with nephrology. Will add Hydrocortisone. * Discussed the patient's daughter's concerns regarding lymphedema treatment.
[2019-04-16] MEDS: Famotidine 20 MG TAB PO SCH (20:30)
[2019-04-16] MEDS: ESTRADIOL 0.01% VAG SCH (20:35)
[2019-04-16] MEDS: Melatonin 3 MG TAB PO PRN (20:37)
[2019-04-17 04:23] LABS: #Lymphocytes 0.5 thou/uL (1.20-3.40); #Monocytes 0.4 thou/uL (0.11-0.59); #Neutrophils 6.3 thou/uL (1.40-6.50); %Basophils 0.3 % (0.0-1.0); %Eosinophils 0.5 % (0.0-10.0); %Lymphocytes 7.2 % (21.0-51.0); Hemoglobin 8.4 g/dL (12.0-16.0); Mean Corpuscular HGB CONC 31.9 g/dL (32.0-36.0); Mean Corpuscular Hemoglobin 30.2 pg (27.0-31.0); Mean Corpuscular Volume 94.8 fL (78.0-98.0); Mean Platelet Volume 8.2 fL (7.4-10.4); Platelet Count 277 thou/uL (130-400); RBC Distribution Width 14.4 % (11.5-14.5); Red Blood Cell (RBC) Count 2.76 mill/uL (4.20-5.40); White Blood Cell (WBC) Count 7.3 thou/uL (4.8-10.8)
[2019-04-17 04:28] LABS: INR-International Normal Ratio 2.1; Prothrombin Time 23.4 SEC (12.0-14.7)
[2019-04-17 04:43] LABS: Anion Gap 14 mmol/L (10-20); Calc. Creatinine Clearance 31 mL/min (70-130); Calcium 9.9 mg/dL (7.8-10.44); Carbon Dioxide 27 mmol/L (23-31); Chloride 92 mmol/L (98-107); Estimated GFR-MDRD 23; Glucose 130 mg/dL (83-110); Potassium 5.4 mmol/L (3.5-5.1); Sodium 128 mmol/L (136-145)
[2019-04-17 04:55] LABS: BUN (Urea Nitrogen) 124 mg/dL (9.8-20.1)
[2019-04-17] MEDS: Hydrocortisone Sod Succ/PF 100 mg/2 ml Vial IVP SCH ×4 (05:16→22:18)
[2019-04-17] MEDS: traMADol HCl 50 MG TAB PO PRN ×2 (07:14→18:40)
[2019-04-17] MEDS: Acetaminophen 325 MG TAB PO PRN ×2 (07:16→18:40)
[2019-04-17] MEDS: Lactinex Tablet PO SCH ×3 (08:54→20:02)
[2019-04-17] MEDS: DULoxetine 60 MG CAP PO SCH (08:54)
[2019-04-17] MEDS: Ferrous Sulfate 325 MG TAB PO SCH ×2 (08:54→20:02)
[2019-04-17] MEDS: Gabapentin 100 MG CAP PO SCH ×2 (08:55→20:02)
[2019-04-17] MEDS: Docusate 100 MG CAP PO SCH ×2 (08:55→20:02)
[2019-04-17] MEDS: Multivit, Therapeutic 1 TAB PO SCH (08:55)
[2019-04-17] MEDS: Meropenem 500 MG in Sodium Chloride 0.9% 100 ML IVPB SCH ×2 (08:55→20:01)
[2019-04-17] MEDS: Allopurinol 100 MG TAB PO SCH (08:55)
[2019-04-17] MEDS: Magnesium Oxide 400 MG TAB PO SCH ×2 (08:55→20:02)
[2019-04-17] MEDS: Fluticasone Propionate Nasal Spray 16 gm Bottle NASAL SCH (09:01)
--- NOTE | 2019-04-17 11:57 | PRG ---
DATE OF SERVICE: 04/17/2019 SUBJECTIVE: Patient was seen and examined at bedside and overnight events noted. Patient denies any shortness of breath or chest pain or palpitation. No history of nausea or vomiting or diarrhea or fever or chills or cramps. OBJECTIVE: GENERAL: This is an obese female, in no apparent distress. VITAL SIGNS: Temperature pulse 72, respiratory rate 20, blood pressure 152/66. LABORATORY DATA: Potassium is 5.4, sodium 128, BUN is 124, creatinine is 2.03. ASSESSMENT AND PLAN: 1. Acute kidney injury, getting better. 2. History of chronic kidney disease stage 4. We will monitor. 3. Hyponatremia, better. 4. Hyperkalemia. We will change the diet and also advised to limit potassium intake. 5. Anemia of chronic disease. 6. Edema, chronic. 7. Renal function is better, avoid nephrotoxins. We will follow. Job ID: [id number]
[2019-04-17] MEDS: HYDROcodone/Acetaminophen 10/325 mg Tablet PO PRN ×2 (12:28→20:12)
--- NOTE | 2019-04-17 15:46 | PDOC.PN ---
- Subjective Encounter Start Date: 04/17/19 Encounter Start Time: 09:30 Doing well. No new complaints. Leg feels ok. No pain. - Objective Resuscitation Status - Order Detail: 04/14/19 09:04 Resuscitation Status Routine Resuscitation Status: FULL: Full Resuscitation Vital Signs & Weight: Vital Signs (12 hours) Pulse Ox 04/17/19 08:00 99 Weight Admit Weight 209 lb 3.2 oz Weight 209 lb 3.2 oz I&O: 04/16/19 04/17/19 04/18/19 06:59 06:59 06:59 Intake Total 1105 1510 Balance 1105 1510 Result Diagrams: 04/17/19 04:14 04/17/19 04:14 Phys Exam - Physical Examination Constitutional: NAD Obese. Respiratory: no wheezing, no rales, no rhonchi Cardiovascular: RRR II/ M Gastrointestinal: soft, non-tender, no distention, positive bowel sounds BLE Edema. No erythema of L thigh. Wound dressed. Neurological: non-focal Dx/Plan (1) Cellulitis Code(s): L03.90 - CELLULITIS, UNSPECIFIED Status: Acute Comment: On meropenem per ID. (2) Hyponatremia Code(s): E87.1 - HYPO-OSMOLALITY AND HYPONATREMIA Status: Acute (3) Acute kidney injury Code(s): N17.9 - ACUTE KIDNEY FAILURE, UNSPECIFIED Status: Acute (4) Anemia, macrocytic Code(s): D53.9 - NUTRITIONAL ANEMIA, UNSPECIFIED Status: Chronic (5) Chronic acquired lymphedema Code(s): I89.0 - LYMPHEDEMA, NOT ELSEWHERE CLASSIFIED Status: Chronic (6) Systolic CHF, chronic Code(s): I50.22 - CHRONIC SYSTOLIC (CONGESTIVE) HEART FAILURE Status: Acute (7) Dyslipidemia Code(s): E78.5 - HYPERLIPIDEMIA, UNSPECIFIED Status: Chronic (8) History of deep venous thrombosis or pulmonary embolus Code(s): CVD0280 - Status: Chronic Comment: Coumadin stopped last admission (9) Hypertension Code(s): I10 - ESSENTIAL (PRIMARY) HYPERTENSION Status: Chronic Qualifiers: Hypertension type: essential hypertension Qualified Code(s): I10 - Essential (primary) hypertension (10) Leg wound, left Code(s): S81.802A - UNSPECIFIED OPEN WOUND, LEFT LOWER LEG, INITIAL ENCOUNTER Status: Chronic (11) Obesity (BMI 30-39.9) Code(s): E66.9 - OBESITY, UNSPECIFIED Status: Chronic (12) Hypotension Status: Acute (13) Ureteral reflux Status: Acute (14) Hydroureter Code(s): N13.4 - HYDROURETER Status: Acute - Plan * Stable. * Renal function slightly improved. * Nephrology following. * Kayexalate given for hyperkalemia. * Continue Meropenem until ok to change per ID. * Continue wound care and dressings and compression wraps to LE's. * Discussed the plan of care with the patient and her daughter at length.
[2019-04-17] MEDS: Warfarin Sodium 3 MG TAB PO SCH (17:14)
[2019-04-17] MEDS: Famotidine 20 MG TAB PO SCH (20:02)
[2019-04-17] MEDS: ESTRADIOL 0.01% VAG SCH (20:03)
[2019-04-17] MEDS: cefTRIAXone\\ROCEPHIN 1 GM in Sodium Chloride 0.9% 100 ML IVPB SCH (22:18)
--- NOTE | 2019-04-17 22:24 | PRG ---
DATE OF SERVICE: 04/17/2019 SUBJECTIVE: Sitting up by the bedside, appears in less distress, less pain. No respiratory symptoms. No abdominal pain. OBJECTIVE: VITAL SIGNS: The temperature has normalized. Other vital signs are normal. GENERAL: Awake, alert, in no distress. LUNGS: Clear. HEART: S1-S2. Regular rate. ABDOMEN: Soft, not distended. EXTREMITIES: The erythema in the left lower extremity is not prominent. The tenderness is less than before. She still has some tenderness, but mild. LABORATORY DATA: White cell count is down to 7.3, hemoglobin 8.4, platelets 277. The creatinine is down to 2.03. 2 sets of blood cultures no growth thus for. ASSESSMENT AND DISCUSSION: Cognitive dysfunction, prior thromboembolism on Coumadin, hematoma with debridement, prior episodes of cellulitis, now another episode of cellulitis of left lower extremity, prior infection on the right knee on chronic doxycycline suppression. The postvoid residual was within normal limits and she did not require catheter placement. Looks like the hydronephrosis is a chronic problem. Currently, she is receiving meropenem. We will transition her to Rocephin since beta-hemolytic strep is the most likely culprit here. Job ID: [id number]
[2019-04-18] MEDS: traMADol HCl 50 MG TAB PO PRN ×3 (03:18→17:47)
[2019-04-18] MEDS: Hydrocortisone Sod Succ/PF 100 mg/2 ml Vial IVP SCH ×4 (04:34→22:19)
[2019-04-18] MEDS: Docusate 100 MG CAP PO SCH ×2 (07:59→21:05)
[2019-04-18] MEDS: Allopurinol 100 MG TAB PO SCH (07:59)
[2019-04-18] MEDS: Ferrous Sulfate 325 MG TAB PO SCH ×2 (07:59→21:05)
[2019-04-18] MEDS: DULoxetine 60 MG CAP PO SCH (07:59)
[2019-04-18] MEDS: Multivit, Therapeutic 1 TAB PO SCH (08:00)
[2019-04-18] MEDS: Magnesium Oxide 400 MG TAB PO SCH ×2 (08:00→21:05)
[2019-04-18] MEDS: Gabapentin 100 MG CAP PO SCH ×2 (08:00→21:06)
[2019-04-18] MEDS: HYDROcodone/Acetaminophen 10/325 mg Tablet PO PRN ×2 (08:01→21:09)
[2019-04-18 08:32] LABS: Prothrombin Time 22.2 SEC (12.0-14.7)
[2019-04-18 08:48] LABS: Anion Gap 11 mmol/L (10-20); BUN (Urea Nitrogen) 105 mg/dL (9.8-20.1); Calc. Creatinine Clearance 43 mL/min (70-130); Calcium 10.4 mg/dL (7.8-10.44); Carbon Dioxide 32 mmol/L (23-31); Chloride 97 mmol/L (98-107); Estimated GFR-MDRD 34; Glucose 119 mg/dL (83-110); Potassium 4.1 mmol/L (3.5-5.1); Sodium 136 mmol/L (136-145)
--- NOTE | 2019-04-18 11:56 | PRG ---
DATE OF SERVICE: 04/18/2019 SUBJECTIVE: Patient was seen and examined at bedside and overnight events noted. Patient denies any shortness of breath or chest pain or palpitation. No history of nausea or vomiting or diarrhea or fever or chills or cramps. OBJECTIVE: GENERAL: This is an elderly female, in no apparent distress. VITAL SIGNS: Temperature 97.5. Heart rate 71. Respiratory rate . Blood pressure 144/67. HEENT: Atraumatic, normocephalic. Oral mucosa is moist NECK: Supple. CARDIOVASCULAR: S1, S2 heard. Rate and rhythm regular. RESPIRATORY: Clear to auscultation. GASTROINTESTINAL: Abdomen is soft. MUSCULOSKELETAL: No tenderness. No edema. DERMATOLOGIC: No skin rash. NEUROLOGIC: Alert and awake and oriented X3. No focal neurologic deficits. Moving all the extremities. PSYCHIATRIC: Mood and affect normal. LABORATORY DATA: Potassium is 4.1, BUN is 105, creatinine is 1.4. ASSESSMENT AND PLAN: 1. Acute kidney injury, much better, most likely back to normal. 2. Chronic kidney disease stage 4. 3. Hyponatremia. 4. Hyperkalemia, better. 5. Edema. 6. Overall, labs are better. We will follow. Job ID: [id number]
[2019-04-18] MEDS: Lactinex Tablet PO SCH ×3 (12:15→21:05)
[2019-04-18] MEDS: Fluticasone Propionate Nasal Spray 16 gm Bottle NASAL SCH (12:16)
--- NOTE | 2019-04-18 15:11 | PDOC.PN ---
- Subjective Encounter Start Date: 04/18/19 Encounter Start Time: 09:00 Doing well. No complaints. Had BM yesterday. Eating well. - Objective Resuscitation Status - Order Detail: 04/14/19 09:04 Resuscitation Status Routine Resuscitation Status: FULL: Full Resuscitation Vital Signs & Weight: Vital Signs (12 hours) Temp Pulse Resp BP Pulse Ox 04/18/19 08:00 94 L 04/18/19 07:35 97.5 F L 71 20 144/67 H 94 L Weight Admit Weight 209 lb 3.2 oz Weight 209 lb 3.2 oz I&O: 04/17/19 04/18/19 04/19/19 06:59 06:59 06:59 Intake Total 1510 1671 Balance 1510 1671 Result Diagrams: 04/17/19 04:14 04/18/19 07:58 Phys Exam - Physical Examination Constitutional: NAD Obese. Respiratory: no wheezing, no rales, no rhonchi Cardiovascular: RRR II/ M Gastrointestinal: soft, non-tender, no distention, positive bowel sounds Persistent BLE edema. Unchanged. Wrapped. No erythema L thigh. Psychiatric: normal affect, A&O x 3 Dx/Plan (1) Cellulitis Code(s): L03.90 - CELLULITIS, UNSPECIFIED Status: Acute Comment: Meropenem changed to Rocephin to cover the most likely source - Strep. (2) Hyponatremia Code(s): E87.1 - HYPO-OSMOLALITY AND HYPONATREMIA Status: Resolved (3) Acute kidney injury Code(s): N17.9 - ACUTE KIDNEY FAILURE, UNSPECIFIED Status: Acute Comment: Improving. (4) Anemia, macrocytic Code(s): D53.9 - NUTRITIONAL ANEMIA, UNSPECIFIED Status: Chronic (5) Chronic acquired lymphedema Code(s): I89.0 - LYMPHEDEMA, NOT ELSEWHERE CLASSIFIED Status: Chronic Comment: Wound Care Team following. Compression wraps. (6) Systolic CHF, chronic Code(s): I50.22 - CHRONIC SYSTOLIC (CONGESTIVE) HEART FAILURE Status: Acute (7) Dyslipidemia Code(s): E78.5 - HYPERLIPIDEMIA, UNSPECIFIED Status: Chronic (8) History of deep venous thrombosis or pulmonary embolus Code(s): [id number] - Status: Chronic Comment: Coumadin stopped last admission (9) Hypertension Code(s): I10 - ESSENTIAL (PRIMARY) HYPERTENSION Status: Chronic Qualifiers: Hypertension type: essential hypertension Qualified Code(s): I10 - Essential (primary) hypertension (10) Leg wound, left Code(s): S81.802A - UNSPECIFIED OPEN WOUND, LEFT LOWER LEG, INITIAL ENCOUNTER Status: Chronic (11) Obesity (BMI 30-39.9) Code(s): E66.9 - OBESITY, UNSPECIFIED Status: Chronic (12) Hypotension Status: Resolved (13) Ureteral reflux Status: Chronic (14) Hydroureter Code(s): N13.4 - HYDROURETER Status: Chronic (15) Hyperkalemia Code(s): E87.5 - HYPERKALEMIA Status: Resolved - Plan * Doing very well overall. * Renal function near baseline. * Cellulitis LLE largely resolved. * Given the chronic wound, will likely need prolonged course of therapy. Defer to ID. * Discussed dietary changes regarding limited potassium.
[2019-04-18] MEDS: Warfarin Sodium 3 MG TAB PO SCH (16:50)
[2019-04-18] MEDS: Acetaminophen 325 MG TAB PO PRN (17:49)
[2019-04-18] MEDS: Famotidine 20 MG TAB PO SCH (21:05)
[2019-04-18] MEDS: cefTRIAXone\\ROCEPHIN 1 GM in Sodium Chloride 0.9% 100 ML IVPB SCH (21:09)
[2019-04-18] MEDS ORDERED: Estradiol 0.01% Vaginal Cream 42.5 gm Tube VAG SCH (21:30)
[2019-04-18] MEDS: Melatonin 3 MG TAB PO PRN (21:36)
[2019-04-18] MEDS: ESTRADIOL 0.01% VAG SCH (21:59)
[2019-04-19] MEDS: traMADol HCl 50 MG TAB PO PRN ×3 (05:29→21:02)
[2019-04-19] MEDS: Hydrocortisone Sod Succ/PF 100 mg/2 ml Vial IVP SCH ×2 (05:30→15:29)
[2019-04-19 05:52] LABS: INR-International Normal Ratio 1.9; Prothrombin Time 21.6 SEC (12.0-14.7)
[2019-04-19] MEDS: Docusate 100 MG CAP PO SCH ×2 (08:44→21:01)
[2019-04-19] MEDS: Gabapentin 100 MG CAP PO SCH ×2 (08:45→21:02)
[2019-04-19] MEDS: DULoxetine 60 MG CAP PO SCH (08:45)
[2019-04-19] MEDS: Magnesium Oxide 400 MG TAB PO SCH ×2 (08:45→21:02)
[2019-04-19] MEDS: Lactinex Tablet PO SCH ×3 (08:45→21:04)
[2019-04-19] MEDS: Ferrous Sulfate 325 MG TAB PO SCH ×2 (08:45→21:04)
[2019-04-19] MEDS: Multivit, Therapeutic 1 TAB PO SCH (08:45)
[2019-04-19] MEDS: Allopurinol 100 MG TAB PO SCH (08:45)
[2019-04-19] MEDS: Fluticasone Propionate Nasal Spray 16 gm Bottle NASAL SCH (08:46)
[2019-04-19] MEDS ORDERED: Torsemide 20 MG TAB PO SCH (11:15)
--- NOTE | 2019-04-19 12:41 | PRG ---
DATE OF SERVICE: 04/19/2019 SUBJECTIVE: This is an 83-year-old female, being seen for acute kidney injury. The patient denied nausea, vomiting, or chest pain. OBJECTIVE: CONSTITUTIONAL: The patient is awake and alert. VITAL SIGNS: Afebrile, pulse 64, breathing 16, and blood pressure 134/62. GENERAL APPEARANCE AND MENTAL STATUS: Fair. HEAD/NECK: Normocephalic. Atraumatic. EYES: EOMI. No deformity. EARS: Clear. No ulcers. NOSE: Intact. No lesions. MOUTH: Clear. No discharge. THROAT: Clear. No exudate. LUNGS: Clear. No crackles. CARDIAC: S1, S2. No rub. ABDOMEN: Benign. Bowel sounds positive. GENITALIA/RECTUM: Schroeder absent. BACK/EXTREMITIES: Lower extremities have 4+ edema. NEUROLOGICAL: Alert and motor intact. SKIN: LYMPHATICS: LABORATORY DATA: Labs show hemoglobin 8.4. Creatinine 1.4. ASSESSMENT AND PLAN: 1. Acute kidney injury and chronic kidney disease due to decreased effective arterial blood volume, improved. 2. Hypertension, stable. 3. Anemia, stable. 4. Medication based on GFR, appropriate. 5. Congestive heart failure, start torsemide 40 mg daily. Job ID: [id number]
[2019-04-19] MEDS ORDERED: Amlodipine 5 MG TAB PO SCH ×2 (13:10→18:15)
[2019-04-19] MEDS: Olmesartan 5 MG TAB PO SCH ×2 (14:45→15:34)
[2019-04-19] MEDS: Acetaminophen 325 MG TAB PO PRN (14:46)
[2019-04-19] MEDS ORDERED: Warfarin Sodium 1 MG TAB PO SCH (17:00)
--- NOTE | 2019-04-19 17:07 | PDOC.PN ---
- Subjective Encounter Start Date: 04/19/19 Encounter Start Time: 11:05 Ms. Trinidad was seen today in follow-up of cellulitis of the right lower extremity. She is complaining of some discomfort in her hip on the right side, which has been chronic, otherwise no significant change. - Objective Resuscitation Status - Order Detail: 04/14/19 09:04 Resuscitation Status Routine Resuscitation Status: FULL: Full Resuscitation MAR Reviewed: Yes Vital Signs & Weight: Vital Signs (12 hours) Temp Pulse Resp BP BP BP Pulse Ox 04/19/19 16:52 86 168/81 H 04/19/19 16:00 80 170/76 H 96 04/19/19 11:30 110 H 172/82 H 04/19/19 08:30 95 04/19/19 08:07 98.0 F 64 18 134/62 95 Weight Admit Weight 209 lb 3.2 oz Weight 209 lb 3.2 oz I&O: 04/18/19 04/19/19 04/20/19 06:59 06:59 06:59 Intake Total 1671 350 Balance 1671 350 Result Diagrams: 04/17/19 04:14 04/18/19 07:58 Phys Exam - Physical Examination HEENT: PERRLA Respiratory: no wheezing, no rales, no rhonchi, clear to auscultation bilateral Cardiovascular: RRR, no significant murmur, no rub Gastrointestinal: soft, non-tender, no distention, positive bowel sounds Musculoskeletal: pulses present, edema present + mild erythema in the right lower extremity Neurological: non-focal, moves all 4 limbs Dx/Plan (1) Cellulitis of right lower extremity Code(s): L03.115 - CELLULITIS OF RIGHT LOWER LIMB Status: Acute (2) Hypertension Code(s): I10 - ESSENTIAL (PRIMARY) HYPERTENSION Status: Chronic Qualifiers: Hypertension type: essential hypertension Qualified Code(s): I10 - Essential (primary) hypertension (3) FAUSTINO (obstructive sleep apnea) Code(s): G47.33 - OBSTRUCTIVE SLEEP APNEA (ADULT) (PEDIATRIC) Status: Chronic (4) Obesity (BMI 30-39.9) Code(s): E66.9 - OBESITY, UNSPECIFIED Status: Chronic (5) Physical deconditioning Code(s): R53.81 - OTHER MALAISE Status: Chronic (6) History of deep venous thrombosis or pulmonary embolus Code(s): [id number] - Status: Chronic Comment: Coumadin stopped last admission (7) Acute kidney injury Code(s): N17.9 - ACUTE KIDNEY FAILURE, UNSPECIFIED Status: Acute Comment: Improving. - Plan * Cellulitis of the right lower extremity- continue Rocephin as per ID recommendations * HTN- her blood pressure is a bit elevated- will start Amlodipine, in lieu of Benicar due to acute renal failure, and titrate. She has also been taken off Hydrocortisone which should help lower the blood pressure over time * History of DVT- continue coumadin * FAUSTINO- stable * Acute kidney injury- improved
[2019-04-19] MEDS: Warfarin Sodium 3 MG TAB PO SCH (18:17)
[2019-04-19] MEDS ORDERED: Olmesartan 5 MG TAB PO SCH (21:00)
[2019-04-19] MEDS: Famotidine 20 MG TAB PO SCH (21:01)
[2019-04-19] MEDS: Estradiol 0.01% Vaginal Cream 42.5 gm Tube VAG SCH (21:06)
[2019-04-19] MEDS: Melatonin 3 MG TAB PO PRN (21:30)
[2019-04-19] MEDS: cefTRIAXone\\ROCEPHIN 1 GM in Sodium Chloride 0.9% 100 ML IVPB SCH (21:59)
[2019-04-19] MEDS: HYDROcodone/Acetaminophen 10/325 mg Tablet PO PRN (22:38)
[2019-04-20 04:50] LABS: Hemoglobin 9.1 g/dL (12.0-16.0)
[2019-04-20 04:53] LABS: INR-International Normal Ratio 1.8; Prothrombin Time 20.4 SEC (12.0-14.7)
[2019-04-20 05:07] LABS: Anion Gap 14 mmol/L (10-20); BUN (Urea Nitrogen) 86 mg/dL (9.8-20.1); Calc. Creatinine Clearance 47 mL/min (70-130); Calcium 9.5 mg/dL (7.8-10.44); Carbon Dioxide 32 mmol/L (23-31); Chloride 97 mmol/L (98-107); Estimated GFR-MDRD 37; Glucose 87 mg/dL (83-110); Potassium 3.7 mmol/L (3.5-5.1); Sodium 139 mmol/L (136-145)
[2019-04-20] MEDS: HYDROcodone/Acetaminophen 10/325 mg Tablet PO PRN ×3 (05:20→20:23)
[2019-04-20] MEDS: Lactinex Tablet PO SCH ×3 (08:55→20:52)
[2019-04-20] MEDS: Gabapentin 100 MG CAP PO SCH ×2 (08:56→20:52)
[2019-04-20] MEDS: DULoxetine 60 MG CAP PO SCH (08:56)
[2019-04-20] MEDS: Ferrous Sulfate 325 MG TAB PO SCH ×2 (08:56→20:52)
[2019-04-20] MEDS: Allopurinol 100 MG TAB PO SCH (08:56)
[2019-04-20] MEDS: Magnesium Oxide 400 MG TAB PO SCH ×2 (08:56→20:53)
[2019-04-20] MEDS: Docusate 100 MG CAP PO SCH ×2 (08:56→20:51)
[2019-04-20] MEDS: Multivit, Therapeutic 1 TAB PO SCH (08:57)
[2019-04-20] MEDS: Fluticasone Propionate Nasal Spray 16 gm Bottle NASAL SCH (08:58)
[2019-04-20] MEDS: traMADol HCl 50 MG TAB PO PRN (09:00)
[2019-04-20] MEDS ORDERED: Torsemide 20 MG TAB PO SCH (09:00)
[2019-04-20] MEDS: Acetaminophen 325 MG TAB PO PRN (09:00)
[2019-04-20] MEDS ORDERED: Amlodipine 5 MG TAB PO SCH ×2 (09:00→21:00)
--- NOTE | 2019-04-20 11:09 | PRG ---
DATE OF SERVICE: SUBJECTIVE: An 83-year-old female being seen for acute kidney injury. The patient denied nausea, vomiting, or chest pain. OBJECTIVE: CONSTITUTIONAL: The patient is awake and alert. VITAL SIGNS: Afebrile, pulse 80, breathing 16, and blood pressure 120/60. GENERAL APPEARANCE AND MENTAL STATUS: Fair. HEAD/NECK: Normocephalic. Atraumatic. EYES: EOMI. No deformity. EARS: Clear. No ulcers. NOSE: Intact. No lesions. MOUTH: Clear. No discharge. THROAT: Clear. No exudate. LUNGS: Clear. No crackles. CARDIAC: S1, S2. No rub. ABDOMEN: Benign. Bowel sounds positive. GENITALIA/RECTUM: Schroeder absent. BACK/EXTREMITIES: Edema 0+. NEUROLOGICAL: Alert and motor intact. SKIN: LYMPHATICS: LABORATORY DATA: Hemoglobin 9.1 and creatinine 1.3. ASSESSMENT AND PLAN: 1. Acute kidney injury with chronic kidney disease, stage 3, stable. 2. Acute tubular necrosis, resolved. 3. Hypertension, stable. 4. Anemia, stable. 5. Edema. Continue torsemide. Recommend 1000 mL fluid restriction. Job ID: [id number]
--- NOTE | 2019-04-20 13:27 | PRG ---
DATE OF SERVICE: 04/20/2019 SUBJECTIVE: Feeling better. No shortness of breath or chest pain. No more pain in the left lower extremity. No diarrhea. OBJECTIVE: VITAL SIGNS: Essentially normal. Still on 2 L nasal cannula with 99 O2 sats. GENERAL: Oriented, follows commands. LUNGS: Clear. HEART: S1 and S2, regular rate. ABDOMEN: Soft. EXTREMITIES: Left leg with almost complete resolution of the erythema. LABORATORY DATA: White cell count 7.3. Creatinine is down to 1.35. ASSESSMENT AND DISCUSSION: Cognitive dysfunction, prior thromboembolism on Coumadin, hematoma with debridement, prior episodes of cellulitis lower extremities particularly the left side now, recurrence of cellulitis with improvement on Rocephin. Switch her to oral Keflex and then discharge planning for tomorrow hopefully. She should be on Keflex for about 10 days after that. Switch her to suppressive dose of Keflex 250 mg twice daily for about 6 months. Job ID: [id number]
[2019-04-20] MEDS: Cephalexin 250 MG CAP PO SCH (15:15)
[2019-04-20] MEDS ORDERED: Warfarin Sodium 2 MG TAB PO SCH ×2 (17:00)
[2019-04-20] MEDS: Warfarin Sodium 3 MG TAB PO SCH (17:19)
--- NOTE | 2019-04-20 18:32 | PDOC.PN ---
- Subjective Encounter Start Date: 04/20/19 (f/u cellulitis) Encounter Start Time: 17:15 Subjective: Pt without complaints - has chronic leg pain that responds to -: tramadol. Denies any n/v/diarrhea - Objective Resuscitation Status - Order Detail: 04/14/19 09:04 Resuscitation Status Routine Resuscitation Status: FULL: Full Resuscitation Vital Signs & Weight: Vital Signs (12 hours) Temp Pulse Resp BP BP Pulse Ox 04/20/19 16:10 98.1 F 82 18 160/86 H 95 04/20/19 12:05 148/82 H 04/20/19 08:56 82 04/20/19 08:15 97.9 F 77 18 142/86 H 95 04/20/19 08:00 2 L Weight Admit Weight 209 lb 3.2 oz Weight 209 lb 3.2 oz I&O: 04/19/19 04/20/19 04/21/19 06:59 06:59 06:59 Intake Total 350 1644 1035 Balance 350 1644 1035 Result Diagrams: 04/20/19 04:38 04/20/19 04:38 Phys Exam - Physical Examination Constitutional: NAD Respiratory: no wheezing, no rales, no rhonchi Cardiovascular: RRR 3/6 ALE that radiates to back Gastrointestinal: soft, non-tender, no distention, positive bowel sounds leg wraps in place Neurological: non-focal Psychiatric: normal affect Dx/Plan (1) Cellulitis Code(s): L03.90 - CELLULITIS, UNSPECIFIED Status: Acute Qualifiers: Site of cellulitis: extremity Site of cellulitis of extremity: lower extremity Laterality: left Qualified Code(s): L03.116 - Cellulitis of left lower limb (2) ALEJANDRA (acute kidney injury) Code(s): N17.9 - ACUTE KIDNEY FAILURE, UNSPECIFIED Status: Resolved (3) Chronic acquired lymphedema Code(s): I89.0 - LYMPHEDEMA, NOT ELSEWHERE CLASSIFIED Status: Chronic (4) Anemia Code(s): D64.9 - ANEMIA, UNSPECIFIED Status: Chronic Qualifiers: Anemia type: due to chronic kidney disease (5) History of deep venous thrombosis or pulmonary embolus Code(s): [id number] - Status: Chronic (6) Hypertension Code(s): I10 - ESSENTIAL (PRIMARY) HYPERTENSION Status: Chronic Qualifiers: Hypertension type: essential hypertension Qualified Code(s): I10 - Essential (primary) hypertension (7) Obesity (BMI 30-39.9) Code(s): E66.9 - OBESITY, UNSPECIFIED Status: Chronic (8) Chronic kidney disease (CKD) Code(s): N18.9 - CHRONIC KIDNEY DISEASE, UNSPECIFIED Status: Chronic Qualifiers: Chronic kidney disease stage: stage 4 (severe) Qualified Code(s): N18.4 - Chronic kidney disease, stage 4 (severe) - Plan * Cellulitis * Appreciate ID consult -changed from Rocephin to keflex * Resume doxycycline at 100 mg daily - d/w Dr. Cai * ALEJANDRA resolved in the context of CKD stage 3 * renally dosing meds * monitor creatinine * HTN - not optimally controlled - increase amlodipine to BID * Wt gain 21 lbs since admission - consult Dr Alejo as he manages fluid as an outpatient along with Dr. Sebastian * * INR subtherapeutic - Pharmacy dosing coumadin * * wean oxygen * * DVT prophy - fully anticoagulated * GI prophy - not indicated * code status full * * reviewed plan of care with patient/daughter, no questions or further needs at end of eval * .
[2019-04-20] MEDS: hydrALAZINE 25 MG TAB PO SCH (20:52)
[2019-04-20] MEDS: Melatonin 3 MG TAB PO PRN (20:53)
[2019-04-21] MEDS: Cephalexin 250 MG CAP PO SCH ×4 (00:32→23:01)
[2019-04-21] MEDS: Famotidine 20 MG TAB PO SCH ×2 (00:34→21:03)
[2019-04-21] MEDS: Estradiol 0.01% Vaginal Cream 42.5 gm Tube VAG SCH ×2 (00:35→21:05)
--- NOTE | 2019-04-21 01:32 | CON ---
DATE OF CONSULTATION: 04/20/2019 REASON FOR CONSULTATION: History of diastolic heart failure with volume overload and severe lymph edema. HISTORY OF PRESENT ILLNESS: Ms. Trinidad is a very pleasant 83-year-old woman. She has a history of severe diastolic heart failure. She was admitted to the hospital in 2017 with severe volume overload and diuresis of about 100 pounds. She has had continued lymphedema problem. She uses a pump to help with that as well as diuretics. She is admitted on this occasion with a nonhealing wound, renal failure. She has gained a lot of weight due to fluid here. She has also had increase in blood pressure. No chest pain or pressure. HOME MEDICATIONS: See nursing note. She was taking Benicar about twice a week as well as diuretics. SOCIAL HISTORY: She has extremely supportive daughter who plays an integral role in her medical care. ALLERGIES: PLEASE SEE THE NURSES NOTES FOR THE ALLERGIES. PHYSICAL EXAMINATION: GENERAL: This is a pleasant elderly woman. She is resting comfortably. VITAL SIGNS: Blood pressure now 160/86, pulse 82, regular. LUNGS: Clear. CARDIAC: Normal S1, normal S2. ABDOMEN: Soft, nontender. EXTREMITIES: There is moderate to severe edema, mostly lymphedema. LABORATORY DATA: Her creatinine is improved, it was up to 2.72, now it is down to 1.35. The left leg is very edematous. It is wrapped now, but her daughter shows me a picture of a nonhealing ulcer. ASSESSMENT: 1. Diastolic heart failure, volume overloaded. 2. Renal failure, improved. 3. Hypertension. 4. Severe lymphedema. PLAN: 1. Change from amlodipine to hydralazine. 2. Continue diuretics. 3. ? whether she could use the pump to try to help with the edema on the left side, even though there is an open wound. Check back with her tomorrow. Job ID: [id number]
[2019-04-21] MEDS: HYDROcodone/Acetaminophen 10/325 mg Tablet PO PRN ×3 (01:55→19:23)
[2019-04-21 04:18] LABS: #Eosinphils 0.3 thou/uL (0.0-0.7); #Lymphocytes 1.6 thou/uL (1.20-3.40); #Monocytes 0.7 thou/uL (0.11-0.59); #Neutrophils 6.8 thou/uL (1.40-6.50); %Basophils 0.1 % (0.0-1.0); %Eosinophils 2.7 % (0.0-10.0); %Neutrophils 73.1 % (42.0-75.0); Hemoglobin 9.1 g/dL (12.0-16.0); Mean Corpuscular HGB CONC 32.7 g/dL (32.0-36.0); Mean Corpuscular Hemoglobin 30.9 pg (27.0-31.0); Mean Corpuscular Volume 94.6 fL (78.0-98.0); Mean Platelet Volume 8.1 fL (7.4-10.4); Platelet Count 360 thou/uL (130-400); RBC Distribution Width 14.9 % (11.5-14.5); Red Blood Cell (RBC) Count 2.92 mill/uL (4.20-5.40); White Blood Cell (WBC) Count 9.4 thou/uL (4.8-10.8)
[2019-04-21 04:24] LABS: INR-International Normal Ratio 1.6; Prothrombin Time 19.2 SEC (12.0-14.7)
[2019-04-21 04:39] LABS: Anion Gap 13 mmol/L (10-20); BUN (Urea Nitrogen) 81 mg/dL (9.8-20.1); Calc. Creatinine Clearance 49 mL/min (70-130); Calcium 9.1 mg/dL (7.8-10.44); Carbon Dioxide 31 mmol/L (23-31); Chloride 97 mmol/L (98-107); Estimated GFR-MDRD 39; Glucose 96 mg/dL (83-110); Iron 39 ug/dL (50-170); Iron Binding Capacity, Total 259 mcg/dL (265-497); Potassium 3.9 mmol/L (3.5-5.1); Sodium 137 mmol/L (136-145)
[2019-04-21] MEDS: traMADol HCl 50 MG TAB PO PRN ×2 (08:49→20:35)
[2019-04-21] MEDS: Acetaminophen 325 MG TAB PO PRN (08:49)
[2019-04-21] MEDS: Allopurinol 100 MG TAB PO SCH (08:51)
[2019-04-21] MEDS: Doxycycline 100 MG CAP PO SCH (08:52)
[2019-04-21] MEDS: Docusate 100 MG CAP PO SCH ×2 (08:52→21:03)
[2019-04-21] MEDS: hydrALAZINE 25 MG TAB PO SCH ×3 (08:54→21:04)
[2019-04-21] MEDS: Gabapentin 100 MG CAP PO SCH ×2 (08:54→21:03)
[2019-04-21] MEDS: Ferrous Sulfate 325 MG TAB PO SCH ×2 (08:54→21:04)
[2019-04-21] MEDS: Lactinex Tablet PO SCH ×3 (08:54→21:03)
[2019-04-21] MEDS: DULoxetine 60 MG CAP PO SCH (08:54)
[2019-04-21] MEDS: Multivit, Therapeutic 1 TAB PO SCH (08:55)
[2019-04-21] MEDS: Torsemide 20 MG TAB PO SCH ×2 (08:55→13:06)
[2019-04-21] MEDS: Magnesium Oxide 400 MG TAB PO SCH ×2 (08:55→21:03)
[2019-04-21] MEDS: Fluticasone Propionate Nasal Spray 16 gm Bottle NASAL SCH (08:56)
--- NOTE | 2019-04-21 15:45 | PDOC.PN ---
- Subjective Encounter Start Date: 04/21/19 (f/u cellulitis) Encounter Start Time: 15:44 Subjective: Pt without complaints, loose stools but not diarrhea. Denies -: any new sx - Objective Resuscitation Status - Order Detail: 04/14/19 09:04 Resuscitation Status Routine Resuscitation Status: FULL: Full Resuscitation Vital Signs & Weight: Vital Signs (12 hours) Temp Pulse Resp BP BP Pulse Ox 04/21/19 15:14 82 142/68 H 04/21/19 13:10 82 95 04/21/19 08:54 78 124/62 04/21/19 08:00 93 L 04/21/19 07:33 98.1 F 78 18 124/62 Weight Admit Weight 209 lb 3.2 oz Weight 209 lb 3.2 oz I&O: 04/20/19 04/21/19 04/22/19 06:59 06:59 06:59 Intake Total 1644 1335 Balance 1644 1335 Result Diagrams: 04/21/19 04:05 04/21/19 04:05 Phys Exam - Physical Examination Constitutional: NAD Respiratory: no wheezing, no rales, no rhonchi Cardiovascular: RRR, no significant murmur Gastrointestinal: soft, non-tender, no distention, positive bowel sounds legs wrapped Psychiatric: normal affect Deviation from normal: pt sad about remaining in the hospital Dx/Plan (1) Cellulitis Code(s): L03.90 - CELLULITIS, UNSPECIFIED Status: Acute Qualifiers: Site of cellulitis: extremity Site of cellulitis of extremity: lower extremity Laterality: left Qualified Code(s): L03.116 - Cellulitis of left lower limb (2) ALEJANDRA (acute kidney injury) Code(s): N17.9 - ACUTE KIDNEY FAILURE, UNSPECIFIED Status: Resolved (3) Chronic acquired lymphedema Code(s): I89.0 - LYMPHEDEMA, NOT ELSEWHERE CLASSIFIED Status: Chronic (4) Anemia Code(s): D64.9 - ANEMIA, UNSPECIFIED Status: Chronic Qualifiers: Anemia type: due to chronic kidney disease (5) History of deep venous thrombosis or pulmonary embolus Code(s): SAS2338 - Status: Chronic (6) Hypertension Code(s): I10 - ESSENTIAL (PRIMARY) HYPERTENSION Status: Chronic Qualifiers: Hypertension type: essential hypertension Qualified Code(s): I10 - Essential (primary) hypertension (7) Obesity (BMI 30-39.9) Code(s): E66.9 - OBESITY, UNSPECIFIED Status: Chronic (8) Chronic kidney disease (CKD) Code(s): N18.9 - CHRONIC KIDNEY DISEASE, UNSPECIFIED Status: Chronic Qualifiers: Chronic kidney disease stage: stage 4 (severe) Qualified Code(s): N18.4 - Chronic kidney disease, stage 4 (severe) - Plan * Cellulitis * Appreciate ID consult -changed from Rocephin to keflex yesterday with plan outlined in Dr. Cai's note * continue doxycycline at 100 mg daily - d/w Dr. Cai * ALEJANDRA resolved in the context of CKD stage 3 * renally dosing meds * monitor creatinine - improved today * * HTN/fluid retention - appreciate Cardiology consult - changed to hydralazine to reduce risk of LE edema with amlodipine * Attempt to diurese further - adjusted torsemide to bid * monitor creatinine closely with this change * INR subtherapeutic -discussed with daughter and pharmacist. At home pt alternates 6 mg and every few days takes 3 mg. Hx of hematoma with slightly supratherapeutic INR. Daughter prefers lower dose (pharmacy recommends 10 mg) - will instead order 7 mg and continue daily check. They prefer to be low rather than high for INR. Will need close f/u after discharge with Dr. Briggs for adjustment of warfarin, they monitor level at home. * wean oxygen * DVT prophy - on coumadin. No indication for lovenox given hx of bleeding/ hematoma that led to current leg wound * GI prophy - not indicated * code status full * * reviewed plan of care with patient/daughter, no questions or further needs at end of eval. * Addendum/19:47 - reviewed Dr. Alejo's note - ok for discharge tomorrow with instructions on hydralazine and f/u basic metabolic panel Will need plan for coumadin/INR checking over the holiday weekend
[2019-04-21] MEDS ORDERED: Warfarin Sodium 10 MG TAB PO SCH (17:00)
[2019-04-21] MEDS: Warfarin Sodium 5 MG TAB PO SCH (17:22)
[2019-04-21] MEDS: Warfarin Sodium 2 MG TAB PO SCH (17:22)
--- NOTE | 2019-04-21 18:24 | PRG ---
DATE OF SERVICE: SUBJECTIVE: Ms. Trinidad is doing quite well. She has diuresed well today. She feels well. OBJECTIVE: VITAL SIGNS: Blood pressure 142/68, pulse 94 and regular. LUNGS: Clear. CARDIAC: Normal S1, normal S2. ABDOMEN: Soft and nontender. EXTREMITIES: There is still edema as before. PERTINENT LABORATORY DATA: Creatinine has improved to 1.29, potassium is 3.9. ASSESSMENT: 1. Diastolic congestive heart failure, improving. 2. Hyperkalemia, resolved. I think that was at least partially related to Benicar. 3. Iron deficiency anemia. Her ferritin is 135.69, but that may be somewhat elevated due to the inflammation. Her iron level is low at 39. 4. Hypertension, stable. PLAN: 1. Okay with me to be released home tomorrow on hydralazine 25 mg 3 times a day. 2. Iron. 3. Torsemide 40 mg twice a day. 4. Bas met to be checked as an outpatient. Job ID: [id number]
[2019-04-21] MEDS: Melatonin 3 MG TAB PO PRN (21:06)
[2019-04-21] MEDS: Iron, Sodium Ferric Gluconate 250 MG in Sodium Chloride 0.9% 100 ML IVPB SCH (21:08)
[2019-04-22 04:59] LABS: #Eosinphils 0.2 thou/uL (0.0-0.7); #Lymphocytes 1.2 thou/uL (1.20-3.40); #Monocytes 0.6 thou/uL (0.11-0.59); #Neutrophils 5.3 thou/uL (1.40-6.50); %Basophils 0.5 % (0.0-1.0); %Eosinophils 2.2 % (0.0-10.0); %Lymphocytes 16.9 % (21.0-51.0); %Monocytes 7.6 % (0.0-10.0); %Neutrophils 72.8 % (42.0-75.0); Hemoglobin 9.4 g/dL (12.0-16.0); Mean Corpuscular HGB CONC 32.2 g/dL (32.0-36.0); Mean Corpuscular Hemoglobin 30.2 pg (27.0-31.0); Mean Corpuscular Volume 93.9 fL (78.0-98.0); Mean Platelet Volume 7.3 fL (7.4-10.4); Platelet Count 413 thou/uL (130-400); RBC Distribution Width 14.9 % (11.5-14.5); Red Blood Cell (RBC) Count 3.11 mill/uL (4.20-5.40); White Blood Cell (WBC) Count 7.3 thou/uL (4.8-10.8)
[2019-04-22 05:08] LABS: INR-International Normal Ratio 1.6; Prothrombin Time 19.4 SEC (12.0-14.7)
[2019-04-22 05:20] LABS: Anion Gap 12 mmol/L (10-20); BUN (Urea Nitrogen) 74 mg/dL (9.8-20.1); Calc. Creatinine Clearance 48 mL/min (70-130); Calcium 9.2 mg/dL (7.8-10.44); Carbon Dioxide 35 mmol/L (23-31); Chloride 95 mmol/L (98-107); Estimated GFR-MDRD 38; Glucose 94 mg/dL (83-110); Potassium 3.4 mmol/L (3.5-5.1); Sodium 139 mmol/L (136-145)
[2019-04-22] MEDS: Cephalexin 250 MG CAP PO SCH ×3 (06:28→21:11)
[2019-04-22] MEDS: Torsemide 20 MG TAB PO SCH ×2 (09:06→14:22)
[2019-04-22] MEDS: Doxycycline 100 MG CAP PO SCH (09:06)
[2019-04-22] MEDS: Docusate 100 MG CAP PO SCH ×2 (09:06→20:53)
[2019-04-22] MEDS: hydrALAZINE 25 MG TAB PO SCH ×3 (09:06→20:55)
[2019-04-22] MEDS: Gabapentin 100 MG CAP PO SCH ×2 (09:07→20:55)
[2019-04-22] MEDS: Lactinex Tablet PO SCH ×3 (09:07→20:56)
[2019-04-22] MEDS: Magnesium Oxide 400 MG TAB PO SCH ×2 (09:07→20:56)
[2019-04-22] MEDS: Ferrous Sulfate 325 MG TAB PO SCH ×2 (09:07→20:55)
[2019-04-22] MEDS: Allopurinol 100 MG TAB PO SCH (09:07)
[2019-04-22] MEDS: Multivit, Therapeutic 1 TAB PO SCH (09:07)
[2019-04-22] MEDS: DULoxetine 60 MG CAP PO SCH (09:07)
[2019-04-22] MEDS: traMADol HCl 50 MG TAB PO PRN (09:08)
[2019-04-22] MEDS: Fluticasone Propionate Nasal Spray 16 gm Bottle NASAL SCH (09:08)
[2019-04-22] MEDS: Acetaminophen 325 MG TAB PO PRN (09:08)
[2019-04-22] MEDS: Iron, Sodium Ferric Gluconate 250 MG in Sodium Chloride 0.9% 100 ML IVPB SCH (09:08)
[2019-04-22 09:14] VITALS: TEMP 98.1
--- NOTE | 2019-04-22 11:58 | PDOC.PN ---
- Subjective Encounter Start Date: 04/22/19 Encounter Start Time: 11:56 Patient seen and examined, no new issues. - Objective Resuscitation Status - Order Detail: 04/14/19 09:04 Resuscitation Status Routine Resuscitation Status: FULL: Full Resuscitation Vital Signs & Weight: Vital Signs (12 hours) Temp Pulse Resp BP BP Pulse Ox 04/22/19 09:13 98.1 F 80 18 138/72 96 04/22/19 09:06 80 138/72 04/22/19 08:00 96 Weight Admit Weight 209 lb 3.2 oz Weight 209 lb 3.2 oz I&O: 04/21/19 04/22/19 04/23/19 06:59 06:59 06:59 Intake Total 1335 1410 Balance 1335 1410 Result Diagrams: 04/22/19 04:43 04/22/19 04:43 Phys Exam - Physical Examination Constitutional: NAD HEENT: PERRLA, moist MMs Neck: no nodes, no JVD, supple Respiratory: no wheezing, no rales, no rhonchi Cardiovascular: RRR, no significant murmur, no rub Gastrointestinal: soft, non-tender, no distention, positive bowel sounds Musculoskeletal: pulses present, edema present Dx/Plan (1) Cellulitis of right lower extremity Code(s): L03.115 - CELLULITIS OF RIGHT LOWER LIMB Status: Acute (2) Systolic CHF, chronic Code(s): I50.22 - CHRONIC SYSTOLIC (CONGESTIVE) HEART FAILURE Status: Acute (3) Anemia Code(s): D64.9 - ANEMIA, UNSPECIFIED Status: Chronic Qualifiers: Anemia type: due to chronic kidney disease (4) Chronic kidney disease (CKD) Code(s): N18.9 - CHRONIC KIDNEY DISEASE, UNSPECIFIED Status: Chronic Qualifiers: Chronic kidney disease stage: stage 4 (severe) Qualified Code(s): N18.4 - Chronic kidney disease, stage 4 (severe) (5) Anemia, macrocytic Code(s): D53.9 - NUTRITIONAL ANEMIA, UNSPECIFIED Status: Chronic (6) History of deep venous thrombosis or pulmonary embolus Code(s): VYA7189 - Status: Chronic (7) Hypertension Code(s): I10 - ESSENTIAL (PRIMARY) HYPERTENSION Status: Chronic Qualifiers: Hypertension type: essential hypertension Qualified Code(s): I10 - Essential (primary) hypertension - Plan * finish IV iron * labs in AM * possible DC in AM if ok with subspecialists and labs acceptable * case and plan d/w patient and family at length, they understood and agreed with this plan.
[2019-04-22] MEDS: Warfarin Sodium 2 MG TAB PO SCH (17:16)
[2019-04-22] MEDS: Warfarin Sodium 5 MG TAB PO SCH (17:16)
[2019-04-22] MEDS: HYDROcodone/Acetaminophen 10/325 mg Tablet PO PRN ×2 (17:47→21:07)
[2019-04-22] MEDS: Estradiol 0.01% Vaginal Cream 42.5 gm Tube VAG SCH (20:54)
[2019-04-22] MEDS: Famotidine 20 MG TAB PO SCH (21:09)
[2019-04-22] MEDS: Melatonin 3 MG TAB PO PRN (21:09)
[2019-04-23] MEDS: traMADol HCl 50 MG TAB PO PRN (04:32)
[2019-04-23 05:24] LABS: INR-International Normal Ratio 1.8; Prothrombin Time 20.7 SEC (12.0-14.7)
[2019-04-23 05:25] LABS: #Eosinphils 0.2 thou/uL (0.0-0.7); #Lymphocytes 1.2 thou/uL (1.20-3.40); #Monocytes 0.5 thou/uL (0.11-0.59); #Neutrophils 5.6 thou/uL (1.40-6.50); %Basophils 0.5 % (0.0-1.0); %Eosinophils 2.7 % (0.0-10.0); %Monocytes 6.6 % (0.0-10.0); %Neutrophils 74.2 % (42.0-75.0); Hemoglobin 9.5 g/dL (12.0-16.0); Mean Corpuscular Hemoglobin 30.4 pg (27.0-31.0); Mean Platelet Volume 7.4 fL (7.4-10.4); Platelet Count 424 thou/uL (130-400); RBC Distribution Width 15.6 % (11.5-14.5); Red Blood Cell (RBC) Count 3.14 mill/uL (4.20-5.40); White Blood Cell (WBC) Count 7.6 thou/uL (4.8-10.8)
[2019-04-23 05:38] LABS: Anion Gap 12 mmol/L (10-20); BUN (Urea Nitrogen) 65 mg/dL (9.8-20.1); Calc. Creatinine Clearance 53 mL/min (70-130); Calcium 9.4 mg/dL (7.8-10.44); Carbon Dioxide 33 mmol/L (23-31); Chloride 97 mmol/L (98-107); Estimated GFR-MDRD 42; Glucose 90 mg/dL (83-110); Potassium 3.2 mmol/L (3.5-5.1); Sodium 139 mmol/L (136-145)
[2019-04-23] MEDS: Cephalexin 250 MG CAP PO SCH (06:44)
[2019-04-23 08:40] VITALS: BP 154/86
[2019-04-23] MEDS: Allopurinol 100 MG TAB PO SCH (09:36)
[2019-04-23] MEDS: Docusate 100 MG CAP PO SCH (09:37)
[2019-04-23] MEDS: DULoxetine 60 MG CAP PO SCH (09:37)
[2019-04-23] MEDS: Doxycycline 100 MG CAP PO SCH (09:37)
[2019-04-23] MEDS: Ferrous Sulfate 325 MG TAB PO SCH (09:37)
[2019-04-23] MEDS: Gabapentin 100 MG CAP PO SCH (09:38)
[2019-04-23] MEDS: hydrALAZINE 25 MG TAB PO SCH (09:39)
[2019-04-23] MEDS: Multivit, Therapeutic 1 TAB PO SCH (09:39)
[2019-04-23] MEDS: Magnesium Oxide 400 MG TAB PO SCH (09:39)
[2019-04-23] MEDS: Lactinex Tablet PO SCH (09:39)
[2019-04-23] MEDS: Torsemide 20 MG TAB PO SCH (09:40)
[2019-04-23] MEDS: Fluticasone Propionate Nasal Spray 16 gm Bottle NASAL SCH (10:20)
--- NOTE | 2019-04-23 12:34 | PDOC.EVN ---
Event Note - Event Note Event Note: DC SUMMARY #[id number]
--- NOTE | 2019-04-23 13:31 | DIS ---
DATE OF ADMISSION: 04/14/2019 DATE OF DISCHARGE: 04/23/2019 ADMITTING DIAGNOSES: 1. Cellulitis. 2. Hypertension. 3. Hyperlipidemia. 4. Lymphedema. 5. Congestive heart failure. 6. Acute kidney injury on chronic kidney disease. DISCHARGE DIAGNOSES: 1. Cellulitis, resolved. 2. Acute kidney failure, stable. 3. Hypertension, stable. 4. Lymphedema, stable. 5. Rest of the diagnoses stable. HOSPITAL COURSE: This is an 83-year-old female, admitted to Internal Medicine Team on the Oncology Floor. The patient was followed closely by Cardiology and Infectious Disease Teams as well. The patient was treated with antibiotics for a long duration of time. While staying in the hospital, the patient had blood cultures done, none of which were positive. At the end of 5 days, no growth was noted. The patient at point in time of discharge, was stable. White blood cell count was stable. Hemoglobin stable. Renal function was stable as well. The patient was changed to Keflex to be taken daily for 10 days. She was to follow up with her PCP within 1 week for further management and care. Options for rehab and longterm services were provided. However, the daughter and the patient refused, stating that they wanted to go to home with home health care. Arrangements were made. The patient's condition was deemed stable for discharge by all subspecialists as well as Primary Care Team. Case and plan discussed with the patient and daughter at length. They understood and agreed with this plan. DISPOSITION: Home with home health care. MEDICATIONS: See MAR. ACTIVITY: As tolerated with assistance as needed. DIET: Low-fat, low-calorie, high-fiber diet. CONDITION: Stable. PROGNOSIS: Guarded. Once again, case and plan discussed with the patient and family at length. They understood and agreed with this plan. Job ID: [id number]
== END 2019-04-23 11:26 | disposition home health service (06) | DRG 871 ==
LOC: ERS 00:26 → ERHOLD 02:05 → ONC 07:02
PROVIDERS: ADMIT Hospitalist; ATTEND Hospitalist
DX: A41.9 Sepsis, unspecified organism (principal); N17.0 Acute kidney failure with tubular necrosis; I50.23 Acute on chronic systolic (congestive) heart failure; L03.116 Cellulitis of left lower limb; N17.9 Acute kidney failure, unspecified; E87.2 Acidosis; I13.0 Hypertensive heart and chronic kidney disease with heart failure and stage 1 through stage 4 chronic kidney disease, or unspecified chronic kidney disease; E87.1 Hypo-osmolality and hyponatremia; N13.4 Hydroureter; N18.4 Chronic kidney disease, stage 4 (severe); I48.91 Unspecified atrial fibrillation; D63.1 Anemia in chronic kidney disease; G47.33 Obstructive sleep apnea (adult) (pediatric); I89.0 Lymphedema, not elsewhere classified; E66.9 Obesity, unspecified; E87.5 Hyperkalemia; E78.5 Hyperlipidemia, unspecified; R79.1 Abnormal coagulation profile; D50.9 Iron deficiency anemia, unspecified; Z96.651 Presence of right artificial knee joint; Z90.49 Acquired absence of other specified parts of digestive tract; Z88.0 Allergy status to penicillin; Z68.35 Body mass index [BMI] 35.0-35.9, adult; Z91.040 Latex allergy status; Z79.01 Long term (current) use of anticoagulants; Z79.899 Other long term (current) drug therapy; Z86.718 Personal history of other venous thrombosis and embolism; Z86.711 Personal history of pulmonary embolism; Z85.72 Personal history of non-Hodgkin lymphomas; Z92.21 Personal history of antineoplastic chemotherapy
CPT/HCPCS: 36415; 74176; 76770; 80048; 80053; 81001; 82553; 82728; 83540; 83550; 83605; 83880; 84484; 85014; 85018; 85025; 85610; 85730; 87040; 93005; 96361; 96365; 96366; 96368; 96375; J0696; J1200; J1720; J1956; J2185; J2270; J2405; J2916; J3370; J3490; J7611

== ENCOUNTER 2019-04-24 20:29 | Emergency (ER) | payer MEDICARE | END 2019-04-24 21:50 | disposition home or self-care (01) | LOC: ERS 20:29 | DX: L53.9 Erythematous condition, unspecified (principal) | CPT/HCPCS: 99281 ==

== ENCOUNTER 2019-05-03 13:55 | Outpatient (CLI) | payer MEDICARE ==
[2019-05-03] MEDS ORDERED: Sodium Chloride 0.9% 15 ML NEB ONE (15:00)
--- NOTE | 2019-05-03 16:45 | PRG ---
DATE OF SERVICE: 05/03/2019 HISTORY: Ms. Dodie Trinidad is a very pleasant 83-year-old, accompanied by one of her daughters, who presents to the Wound Center for evaluation of a large wound of the left lateral lower leg subsequent to incision and drainage of a left leg hematoma on 06/06/[address] Robinson Baez. Since the patient's last visit, Ms. Trinidad has been receiving dressing changes of PluroGel 3 times per week after cleansing and irrigation with the assistance of Home Health. The patient has also been utilizing her lymphedema wraps over the left foot and lower leg in conjunction with the preceding dressing changes. Since the patient's last visit to the Wound Center, Ms. Trinidad was admitted to [facility] on 04/14/2019, with cellulitis of the left leg. The patient was discharged to home on Keflex 250 mg p.o. b.i.d. x10 days. PHYSICAL EXAMINATION: VITAL SIGNS: Temperature 98.1, pulse 93, respirations 18, and blood pressure 143/63. EXTREMITIES: A large wound of the left lateral lower leg is present, which measures approximately 7.5 x 6.3 cm. The dimensions of the wound at the time of the patient's visit on 03/31/2019 were approximately 8.7 x 4.0 cm. Granulation tissue is present within the wound margins. No purulent drainage is associated with the wound. No cellulitis of the left lower leg is appreciated. No maceration of the skin of the periwound is noted. ASSESSMENT AND PLAN: 1. Chronic venous hypertension with ulceration. Dressing changes of Medihoney alginate, followed by an ABD, Rocael, and Tameka will be initiated today. The patient is to continue to utilize her lymphedema wraps over the left foot and lower leg in conjunction with the preceding dressing changes. These dressing changes are to be performed 3 times per week after cleansing and irrigation with the assistance of Home Health. I will see Ms. Trinidad again in 2 weeks. The patient has been given a prescription for Keflex 250 mg p.o. b.i.d. x10 days. 2. Osteoarthritis. 3. History of non-Hodgkin's lymphoma, status post chemotherapy with bleomycin and radiation therapy in 1992. 4. History of pulmonary embolism. 5. Chronic lymphedema. 6. Hypertension. 7. Obstructive sleep apnea. 8. History of deep venous thrombosis. 9. Left atrophic kidney. 10. Chronic kidney disease. 11. Right hydronephrosis. 12. Congestive heart failure. 13. Anemia. Job ID: [id number]
== END 2019-05-03 13:56 | disposition home or self-care (01) ==
LOC: WCC 13:55
PROVIDERS: ATTEND Family Medicine
DX: T81.89XD Other complications of procedures, not elsewhere classified, subsequent encounter (principal); I87.302 Chronic venous hypertension (idiopathic) without complications of left lower extremity; M19.90 Unspecified osteoarthritis, unspecified site; Z85.72 Personal history of non-Hodgkin lymphomas; Z86.711 Personal history of pulmonary embolism; I89.0 Lymphedema, not elsewhere classified; G47.33 Obstructive sleep apnea (adult) (pediatric); Z86.718 Personal history of other venous thrombosis and embolism; I13.0 Hypertensive heart and chronic kidney disease with heart failure and stage 1 through stage 4 chronic kidney disease, or unspecified chronic kidney disease; N26.1 Atrophy of kidney (terminal); N18.9 Chronic kidney disease, unspecified; N13.30 Unspecified hydronephrosis; I50.9 Heart failure, unspecified; D63.1 Anemia in chronic kidney disease
CPT/HCPCS: 36415; 85025; 86140; A4218

== ENCOUNTER 2019-05-17 14:10 | Outpatient (CLI) | payer MEDICARE ==
[2019-05-17] MEDS ORDERED: Sodium Chloride 0.9% 15 ML NEB ONE (15:00)
--- NOTE | 2019-05-17 17:15 | PRG ---
DATE OF SERVICE: 05/17/2019 HISTORY: Ms. Dodie Trinidad is a very pleasant 83-year-old, accompanied by her daughter, who presents to the wound center for evaluation of a large wound of the left lateral lower leg subsequent to incision and drainage of a left leg hematoma on 06/06/[address] Robinson Baez. Since the patient's last visit, Ms. Trinidad has been receiving dressing changes of Medihoney, followed by an ABD, Webril, and Kerlix three times per week after cleansing and irrigation with the assistance of home health. The patient has also been utilizing her lymphedema wraps over the left foot and lower leg in conjunction with the preceding dressing changes. The patient is now taking p.o. antibiotics as per Dr. Frank Cai. The patient's daughter states that Ms. Trinidad will be taking p.o. antibiotics as per Dr. Cai until the wound of the left lateral lower leg has completely healed. PHYSICAL EXAMINATION: VITAL SIGNS: Temperature 98.1, pulse 91, respirations 19, and blood pressure 173/79. EXTREMITIES: A large wound of the left lateral lower leg is present, which measures approximately 8.2 x 7.0 cm. Granulation tissue is present within the wound margins. No purulent drainage is associated with the wound. No cellulitis of the left lower leg is appreciated. No maceration of the skin of the periwound is noted. ASSESSMENT AND PLAN: 1. Chronic venous hypertension with ulceration. Dressing changes of Medihoney alginate, followed by an ABD, Webril, and Kerlix will be continued 3 times per week after cleansing and irrigation with the assistance of home health. The patient is to continue to utilize her lymphedema wraps over the left foot and lower leg in conjunction with the preceding dressing changes. I will see Ms. Trinidad again in 2 weeks. As stated above, the patient is now taking p.o. antibiotics as per Infectious Diseases, which are to be continued until the patient's wound has completely healed. 2. Osteoarthritis. 3. History of non-Hodgkin lymphoma, status post chemotherapy with bleomycin and radiation therapy in 1992. 4. History of pulmonary embolism. 5. Chronic lymphedema. 6. Hypertension. 7. Obstructive sleep apnea. 8. History of deep venous thrombosis. 9. Left atrophic kidney. 10. Chronic kidney disease. 11. Right hydronephrosis. 12. Congestive heart failure. 13. Anemia. Job ID: [id number]
== END 2019-05-17 14:11 | disposition home or self-care (01) ==
LOC: WCC 14:10
PROVIDERS: ATTEND Family Medicine
DX: T81.89XD Other complications of procedures, not elsewhere classified, subsequent encounter (principal); I87.312 Chronic venous hypertension (idiopathic) with ulcer of left lower extremity; M19.90 Unspecified osteoarthritis, unspecified site; I89.0 Lymphedema, not elsewhere classified; G47.00 Insomnia, unspecified; G47.33 Obstructive sleep apnea (adult) (pediatric); N26.1 Atrophy of kidney (terminal); I11.0 Hypertensive heart disease with heart failure; N18.9 Chronic kidney disease, unspecified; N13.30 Unspecified hydronephrosis; I50.9 Heart failure, unspecified; D63.1 Anemia in chronic kidney disease
CPT/HCPCS: A4218

== ENCOUNTER 2019-05-31 14:30 | Outpatient (CLI) | payer MEDICARE ==
[2019-05-31] MEDS ORDERED: Sodium Chloride 0.9% 15 ML NEB ONE ×2 (15:00)
--- NOTE | 2019-05-31 17:26 | PRG ---
DATE OF SERVICE: 05/31/2019 HISTORY: Ms. Dodie Trinidad is a very pleasant 83-year-old, accompanied by her daughter, who presents to the Wound Center for evaluation of a large wound of the left lateral lower leg subsequent to incision and drainage of a left leg hematoma on 06/06/[address] Robinson Baez. Since the patient's last visit, Ms. Trinidad has been receiving dressing changes of Medihoney alginate followed by an ABD, Webril, and Kerlix 3 times per week after cleansing and irrigation with the assistance of Home Health. The patient has also been utilizing her lymphedema wraps over the left foot and lower leg in conjunction with the preceding dressing changes. The patient is now taking p.o. antibiotics as per Dr. Frank Cai. The patient's daughter stated at the time of Ms. Trinidad's last visit that the patient will be taking p.o. antibiotics as per Dr. Cai until the wound of the left lateral lower leg has healed completely. PHYSICAL EXAMINATION: VITAL SIGNS: Temperature 98.1, pulse 84, respirations 20, blood pressure 169/77. EXTREMITIES: A large wound of the left lateral lower leg is present, which measures approximately 8.5 x 7.0 cm. Granulation tissue is present within the wound margins. No purulent drainage is associated with the wound. No cellulitis of the left lower leg is appreciated. No maceration of the skin of the periwound is noted. ASSESSMENT AND PLAN: 1. Chronic venous hypertension with ulceration. Dressing changes of Medihoney alginate will be discontinued. Dressing changes of Multidex powder followed by an ABD, Kerlix, Webril, and an Armen bandage are to be performed 3 times per week after cleansing and irrigation with the assistance of Home Health. The patient is to continue to utilize her lymphedema wraps over the left foot and lower leg in conjunction with the preceding dressing changes. I will see Ms. Trinidad again in 2 weeks. 2. Osteoarthritis. 3. History of non-Hodgkin lymphoma, status post chemotherapy with bleomycin and radiation therapy in 1992. 4. History of pulmonary embolism. 5. Chronic lymphedema. 6. Hypertension. 7. Obstructive sleep apnea. 8. History of deep venous thrombosis. 9. Left atrophic kidney. 10. Chronic kidney disease. 11. Right hydronephrosis. 12. Congestive heart failure. 13. Anemia. Job ID: [id number]
== END 2019-05-31 14:31 | disposition home or self-care (01) ==
LOC: WCC 14:30
PROVIDERS: ATTEND Family Medicine
DX: I87.312 Chronic venous hypertension (idiopathic) with ulcer of left lower extremity (principal); L97.929 Non-pressure chronic ulcer of unspecified part of left lower leg with unspecified severity; I89.0 Lymphedema, not elsewhere classified; I13.0 Hypertensive heart and chronic kidney disease with heart failure and stage 1 through stage 4 chronic kidney disease, or unspecified chronic kidney disease; I50.9 Heart failure, unspecified; N18.9 Chronic kidney disease, unspecified; D63.1 Anemia in chronic kidney disease; N13.30 Unspecified hydronephrosis; M19.90 Unspecified osteoarthritis, unspecified site; G47.33 Obstructive sleep apnea (adult) (pediatric); N26.1 Atrophy of kidney (terminal); Z86.711 Personal history of pulmonary embolism; Z86.718 Personal history of other venous thrombosis and embolism; Z85.71 Personal history of Hodgkin lymphoma; Z92.3 Personal history of irradiation
CPT/HCPCS: 97602; A4218

== ENCOUNTER 2019-06-23 16:29 | Outpatient (CLI) | payer MEDICARE ==
--- NOTE | 2019-06-23 17:16 | PRG ---
DATE OF SERVICE: 06/23/2019 HISTORY: Ms. Dodie Trinidad is a very pleasant 83-year-old, accompanied by her daughter, who presents to the Wound Center for evaluation of a large wound of the left lateral lower leg subsequent to incision and drainage of a left leg hematoma on 06/06/[address] Robinson Baez. Since the patient's last visit, Ms. Trinidad has been receiving dressing changes of Santyl, gauze, ABD, Webril, and an Armen bandage on a daily basis after cleansing and irrigation with the assistance of Home Health. The patient has also been utilizing her lymphedema wraps over the left foot and lower leg in conjunction with the preceding dressing changes. The patient continues to take p.o. antibiotics as per Infectious Diseases. Copious serosanguineous drainage is associated with the wound of the left lateral lower leg. PHYSICAL EXAMINATION: VITAL SIGNS: Temperature 98.4, pulse 75, respirations 19, and blood pressure 111/56. EXTREMITIES: A large wound of the left lateral lower leg is present, which measures approximately 8.8 x 8.0 cm. The dimensions of the wound at the time of the patient's visit on 06/14/2019 were approximately 10.0 x 8.5 cm. Granulation tissue is present within the wound margins. No purulent drainage is associated with the wound. No erythema of the skin surrounding the wound is present. No maceration of the skin of the periwound is noted. ASSESSMENT AND PLAN: 1. Chronic venous hypertension with ulceration. Dressing changes of Santyl will be continued on a daily basis after cleansing and irrigation with the assistance of Home Health. Gauze, ABDs, Webril, and Armen bandages will be utilized as secondary dressings. The patient is to continue to utilize her lymphedema wraps over the left foot and lower leg in conjunction with the preceding daily dressing changes. I will see Ms. Trinidad again in 1 week. 2. Osteoarthritis. 3. History of non-Hodgkin lymphoma, status post chemotherapy with bleomycin and radiation therapy in 1992. 4. History of pulmonary embolism. 5. Chronic lymphedema. 6. Hypertension. 7. Obstructive sleep apnea. 8. History of deep venous thrombosis. 9. Left atrophic kidney. 10. Chronic kidney disease. 11. Right hydronephrosis. 12. Congestive heart failure. 13. Anemia. Job ID: [id number]
== END 2019-06-23 16:30 | disposition home or self-care (01) ==
LOC: WCC 16:29
PROVIDERS: ATTEND Family Medicine
DX: T81.89XD Other complications of procedures, not elsewhere classified, subsequent encounter (principal); I87.312 Chronic venous hypertension (idiopathic) with ulcer of left lower extremity; M19.90 Unspecified osteoarthritis, unspecified site; I89.0 Lymphedema, not elsewhere classified; G47.33 Obstructive sleep apnea (adult) (pediatric); I13.0 Hypertensive heart and chronic kidney disease with heart failure and stage 1 through stage 4 chronic kidney disease, or unspecified chronic kidney disease; N26.1 Atrophy of kidney (terminal); N18.9 Chronic kidney disease, unspecified; N13.30 Unspecified hydronephrosis; I50.9 Heart failure, unspecified; D63.1 Anemia in chronic kidney disease
CPT/HCPCS: 97602; A4218

== ENCOUNTER 2019-06-30 16:27 | Outpatient (CLI) | payer MEDICARE ==
--- NOTE | 2019-06-30 17:30 | PRG ---
DATE OF SERVICE: 06/30/2019 SUBJECTIVE: Ms. Dodie Trinidad is a very pleasant 83-year-old, accompanied by her daughter, who presents to the Wound Center for evaluation of a large wound of the left lateral lower leg subsequent to incision and drainage of a left leg hematoma on 06/06/[address] Robinson Baez. Since the patient's last visit, Ms. Trinidad has been receiving dressing changes of Santyl on a daily basis after cleansing and irrigation with the assistance of Home Health. The patient has also been utilizing her lymphedema wraps over the left foot and lower leg in conjunction with the preceding dressing changes. The patient continues to take p.o. antibiotics as per Infectious Diseases. The patient has no complaints today. She denies any fever or chills. OBJECTIVE: VITAL SIGNS: Temperature 98.2, pulse 85, respirations 19, and blood pressure 133/62. EXTREMITIES: A large wound over the left lateral lower leg is present, which measures approximately 7.5 x 8.5 cm. The dimensions of the wound at the time of the patient's visit on 06/23/2019 were approximately 8.8 x 8.0 cm. Granulation tissue is present within the wound margins. No purulent drainage is associated with the wound. No erythema of the skin surrounding the wound is present. No maceration of the skin of the periwound is noted. ASSESSMENT AND PLAN: 1. Chronic venous hypertension with ulceration. Dressing changes of Santyl will be continued on a daily basis after cleansing and irrigation with the assistance of Home Health. Gauze, ABDs, Kerlix, and Armen bandages will be utilized as secondary dressings. The patient is to continue to utilize her lymphedema wraps over the left foot and lower leg in conjunction with the preceding daily dressing changes. I will see Ms. Trinidad again in 2 weeks. 2. Osteoarthritis. 3. History of non-Hodgkin lymphoma, status post chemotherapy with bleomycin and radiation therapy in 1992. 4. History of pulmonary embolism. 5. Chronic lymphedema. 6. Hypertension. 7. Obstructive sleep apnea. 8. History of deep venous thrombosis. 9. Left atrophic kidney. 10. Chronic kidney disease. 11. Right hydronephrosis. 12. Congestive heart failure. 13. Anemia. Job ID: [id number]
== END 2019-06-30 16:28 | disposition home or self-care (01) ==
LOC: WCC 16:27
PROVIDERS: ATTEND Family Medicine
DX: T81.89XD Other complications of procedures, not elsewhere classified, subsequent encounter (principal); I87.302 Chronic venous hypertension (idiopathic) without complications of left lower extremity; M19.90 Unspecified osteoarthritis, unspecified site; I89.0 Lymphedema, not elsewhere classified; G47.33 Obstructive sleep apnea (adult) (pediatric); I13.0 Hypertensive heart and chronic kidney disease with heart failure and stage 1 through stage 4 chronic kidney disease, or unspecified chronic kidney disease; N26.1 Atrophy of kidney (terminal); N18.9 Chronic kidney disease, unspecified; N13.30 Unspecified hydronephrosis; I50.9 Heart failure, unspecified; D63.1 Anemia in chronic kidney disease
CPT/HCPCS: A4218

== ENCOUNTER 2019-07-12 15:15 | Outpatient (CLI) | payer MEDICARE ==
--- NOTE | 2019-07-12 15:50 | PRG ---
DATE OF SERVICE: 07/12/2019 HISTORY: Ms. Dodie Trinidad is a very pleasant 83-year-old, accompanied by her daughter, who presents to the wound center for evaluation of a large wound of the left lateral lower leg subsequent to incision and drainage of a left leg hematoma on 06/06/[address] Robinson Baez. Since the patient's last visit, Ms. Trinidad has been receiving dressing changes of Santyl on a daily basis after cleansing and irrigation with the assistance of Home Health. The patient has also been utilizing her lymphedema wraps over the left foot and lower leg in conjunction with the preceding dressing changes. The patient continues to take p.o. antibiotics as per Infectious Disease. Ms. Trinidad has no complaints today. She denies any fever or chills. PHYSICAL EXAMINATION: VITAL SIGNS: Temperature 98.2, pulse 84, respirations 18, blood pressure 140/63. EXTREMITIES: A large wound over the left lateral lower leg is present which measures approximately 6.9 x 8.0 cm. The dimensions of the wound at the time of the patient's visit on 06/30/2019 were approximately 7.5 x 8.5 cm. Granulation tissue is present within the wound margins. No purulent drainage is associated with the wound. No erythema of the skin surrounding the wound is present. No maceration of the skin of the periwound is noted. ASSESSMENT AND PLAN: 1. Chronic venous hypertension with ulceration. Dressing changes of Santyl will be continued on a daily basis after cleansing and irrigation with the assistance of Home Health. Gauze, ABDs, Kerlix, and Armen bandages will be utilized as secondary dressings. The patient is to continue to utilize her lymphedema wraps over the left foot and lower leg in conjunction with the preceding daily dressing changes. I will see Ms. Trinidad again in 2 weeks. 2. Osteoarthritis. 3. History of non-Hodgkin lymphoma, status post chemotherapy with bleomycin and radiation therapy in 1992. 4. History of pulmonary embolism. 5. Chronic lymphedema. 6. Hypertension. 7. Obstructive sleep apnea. 8. History of deep venous thrombosis. 9. Left atrophic kidney. 10. Chronic kidney disease. 11. Right hydronephrosis. 12. Congestive heart failure. 13. Anemia. Job ID: [id number]
[2019-07-12] MEDS ORDERED: Sodium Chloride 0.9% 15 ML NEB ONE (17:25)
== END 2019-07-12 15:16 | disposition home or self-care (01) ==
LOC: WCC 15:15
PROVIDERS: ATTEND Family Medicine
DX: I87.312 Chronic venous hypertension (idiopathic) with ulcer of left lower extremity (principal); L97.929 Non-pressure chronic ulcer of unspecified part of left lower leg with unspecified severity; I13.0 Hypertensive heart and chronic kidney disease with heart failure and stage 1 through stage 4 chronic kidney disease, or unspecified chronic kidney disease; N18.9 Chronic kidney disease, unspecified; I50.9 Heart failure, unspecified; M19.90 Unspecified osteoarthritis, unspecified site; I89.0 Lymphedema, not elsewhere classified; G47.33 Obstructive sleep apnea (adult) (pediatric); N26.1 Atrophy of kidney (terminal); D63.1 Anemia in chronic kidney disease; N13.30 Unspecified hydronephrosis; Z85.72 Personal history of non-Hodgkin lymphomas; Z86.711 Personal history of pulmonary embolism; Z86.718 Personal history of other venous thrombosis and embolism
CPT/HCPCS: 97602; A4218

== ENCOUNTER 2019-07-28 14:44 | Outpatient (CLI) | payer MEDICARE ==
[2019-07-28] MEDS ORDERED: Sodium Chloride 0.9% 15 ML NEB ONE (15:39)
--- NOTE | 2019-07-28 16:10 | PRG ---
DATE OF SERVICE: 07/28/2019 HISTORY: Ms. Dodie Trinidad is a very pleasant 83-year-old, accompanied by her daughter, who presents to the Wound Center for evaluation of large wound of the left lateral lower leg subsequent to incision and drainage of a left leg hematoma on 06/06/[address] Robinson Baez. Since the patient's last visit, Ms. Trinidad has been receiving dressing changes of Santyl on a daily basis after cleansing and irrigation with the assistance of Home Health and her daughter. The patient has also been utilizing her lymphedema wraps over the left foot and lower leg in conjunction with the preceding dressing changes. The patient continues to take p.o. antibiotics as per Infectious Diseases. The patient has no complaints today. She denies any fever or chills. PHYSICAL EXAMINATION: VITAL SIGNS: Stable, afebrile. EXTREMITIES: A wound over the left lateral lower leg is present, which measures approximately 5.5 x 8.0 cm. The dimensions of the wound at the time of the patient's visit on 07/12/2019 were approximately 6.9 x 8.0 cm. Granulation tissue is present within the wound margins. No purulent drainage is associated with the wound. No erythema of the skin surrounding the wound is present. No maceration of the skin of the periwound is noted. ASSESSMENT AND PLAN: 1. Chronic venous hypertension with ulceration, dressing changes of Santyl will be continued on a daily basis after cleansing and irrigation with the assistance of Home Health. Gauze, ABDs, Kerlix, Webril, and short stretch dressings will be utilized as secondary dressings. I will see Ms. Trinidad again in 2 weeks. 2. Osteoarthritis. 3. History of non-Hodgkin lymphoma, status post chemotherapy with bleomycin and radiation therapy in 1992. 4. History of pulmonary embolism. 5. Chronic lymphedema. 6. Hypertension. 7. Obstructive sleep apnea. 8. History of deep venous thrombosis. 9. Left atrophic kidney. 10. Chronic kidney disease. 11. Right hydronephrosis. 12. Congestive heart failure. 13. Anemia. Job ID: [id number]
== END 2019-07-28 14:45 | disposition home or self-care (01) ==
LOC: WCC 14:44
PROVIDERS: ATTEND Family Medicine
DX: T81.89XD Other complications of procedures, not elsewhere classified, subsequent encounter (principal); I87.322 Chronic venous hypertension (idiopathic) with inflammation of left lower extremity; G47.33 Obstructive sleep apnea (adult) (pediatric); N26.1 Atrophy of kidney (terminal); I13.0 Hypertensive heart and chronic kidney disease with heart failure and stage 1 through stage 4 chronic kidney disease, or unspecified chronic kidney disease; I50.9 Heart failure, unspecified; N18.9 Chronic kidney disease, unspecified; D63.1 Anemia in chronic kidney disease; I89.0 Lymphedema, not elsewhere classified; N13.30 Unspecified hydronephrosis; Z86.718 Personal history of other venous thrombosis and embolism; Z86.711 Personal history of pulmonary embolism; Z92.3 Personal history of irradiation; Z92.21 Personal history of antineoplastic chemotherapy; Z85.72 Personal history of non-Hodgkin lymphomas
CPT/HCPCS: A4218

== ENCOUNTER 2019-08-11 14:42 | Outpatient (CLI) | payer MEDICARE ==
--- NOTE | 2019-08-11 16:05 | PRG ---
DATE OF SERVICE: 08/11/2019 HISTORY: Ms. Dodie Trinidad is a very pleasant 83-year-old, accompanied by her daughter, who presents to the Wound Center for evaluation of a large wound of the left lateral lower leg subsequent to incision and drainage of a left leg hematoma on 06/06/[address] Robinson Baez. Since the patient's last visit, Ms. Trinidad has been receiving dressing changes of Santyl on a daily basis after cleansing and irrigation with the assistance of Home Health and her daughter. The patient has also been utilizing her lymphedema wraps over the left foot and lower leg in conjunction with the preceding dressing changes. The patient continues to take p.o. antibiotics as per Infectious Diseases. The patient has no complaints today. She denies any fever or chills. PHYSICAL EXAMINATION: VITAL SIGNS: Temperature 98.1, pulse 67, respirations 18, blood pressure 132/58. EXTREMITIES: A wound over the left lateral lower leg is present, which measures approximately 8.3 x 7.9 cm. The dimensions of the wound at the time of the patient's visit on 07/28/2019 were approximately 5.5 x 8.0 cm. Granulation tissue is present within the wound margins. No purulent drainage is associated with the wound. No erythema of the skin surrounding the wound is present. No maceration of the skin of the periwound is noted. ASSESSMENT AND PLAN: 1. Chronic venous hypertension with ulceration. Dressing changes of Santyl will be continued on a daily basis after cleansing and irrigation with the assistance of Home Health. Gauze, ABDs, Kerlix, Webril, and short stretch bandages will be utilized as secondary dressings. I will see Ms. Trinidad again in 2 to 4 weeks. 2. Osteoarthritis. 3. History of non-Hodgkin lymphoma, status post chemotherapy with bleomycin and radiation therapy in 1992. 4. History of pulmonary embolism. 5. Chronic lymphedema. 6. Hypertension. 7. Obstructive sleep apnea. 8. History of deep venous thrombosis. 9. Left atrophic kidney. 10. Chronic kidney disease. 11. Right hydronephrosis. 12. Congestive heart failure. 13. Anemia. Job ID: [id number]
[2019-08-11] MEDS ORDERED: Sodium Chloride 0.9% 15 ML NEB ONE (18:00)
== END 2019-08-11 14:43 | disposition home or self-care (01) ==
LOC: WCC 14:42
PROVIDERS: ATTEND Family Medicine
DX: I87.312 Chronic venous hypertension (idiopathic) with ulcer of left lower extremity (principal); L97.829 Non-pressure chronic ulcer of other part of left lower leg with unspecified severity; M19.90 Unspecified osteoarthritis, unspecified site; I89.0 Lymphedema, not elsewhere classified; G47.33 Obstructive sleep apnea (adult) (pediatric); N26.1 Atrophy of kidney (terminal); I13.0 Hypertensive heart and chronic kidney disease with heart failure and stage 1 through stage 4 chronic kidney disease, or unspecified chronic kidney disease; N18.9 Chronic kidney disease, unspecified; I50.9 Heart failure, unspecified; D64.9 Anemia, unspecified; N13.30 Unspecified hydronephrosis; Z85.72 Personal history of non-Hodgkin lymphomas; Z86.711 Personal history of pulmonary embolism; Z86.718 Personal history of other venous thrombosis and embolism
CPT/HCPCS: A4218

== ENCOUNTER 2019-08-20 01:39 | Inpatient (IN) | payer MEDICARE ==
[2019-08-20 03:02] LABS: Hemoglobin 13.8 g/dL (12.0-16.0); Mean Corpuscular HGB CONC 30.7 g/dL (32.0-36.0); Mean Corpuscular Hemoglobin 29.5 pg (27.0-31.0); Mean Corpuscular Volume 96.2 fL (78.0-98.0); Mean Platelet Volume 8.5 fL (7.4-10.4); Platelet Count 285 thou/uL (130-400); RBC Distribution Width 16.7 % (11.5-14.5); Red Blood Cell (RBC) Count 4.68 mill/uL (4.20-5.40)
[2019-08-20 03:19] LABS: Band 3 % (5-11); Lymphocytes 5 % (21-51); MDiff Complete? YES; Monocytes 4 % (0-10); Neutrophil 88 % (42-75); Platelet Morphology Comment Appears Adequate; RBC Morphology Normal
[2019-08-20] MEDS ORDERED: Cefepime 2 GM VIAL ONE (04:00)
[2019-08-20] MEDS ORDERED: Acetaminophen 325 MG TAB ONE (04:11)
[2019-08-20 04:51] LABS: #Lymphocytes 0.7 thou/uL (1.20-3.40); #Monocytes 0.6 thou/uL (0.11-0.59); #Neutrophils 19.1 thou/uL (1.40-6.50); %Basophils 0.1 % (0.0-1.0); %Eosinophils 0.1 % (0.0-10.0); %Lymphocytes 3.6 % (21.0-51.0); %Monocytes 2.8 % (0.0-10.0); %Neutrophils 93.4 % (42.0-75.0); Hemoglobin 12.6 g/dL (12.0-16.0); Mean Corpuscular HGB CONC 31.9 g/dL (32.0-36.0); Mean Corpuscular Hemoglobin 30.1 pg (27.0-31.0); Mean Corpuscular Volume 94.4 fL (78.0-98.0); Mean Platelet Volume 8.2 fL (7.4-10.4); Platelet Count 311 thou/uL (130-400); RBC Distribution Width 16.4 % (11.5-14.5); Red Blood Cell (RBC) Count 4.18 mill/uL (4.20-5.40); White Blood Cell (WBC) Count 20.5 thou/uL (4.8-10.8)
[2019-08-20 05:05] LABS: Albumin 3.7 g/dL (3.4-4.8)
[2019-08-20 05:07] LABS: Chloride 96 mmol/L (98-107); Potassium 4.2 mmol/L (3.5-5.1); Sodium 140 mmol/L (136-145)
[2019-08-20 05:08] LABS: Glucose 136 mg/dL (83-110); Protein, Total 6.7 g/dL (6.0-8.3)
[2019-08-20 05:09] LABS: Carbon Dioxide 28 mmol/L (23-31)
[2019-08-20 05:10] LABS: Anion Gap 20 mmol/L (10-20); Bilirubin, Total 0.6 mg/dL (0.2-1.2)
[2019-08-20 05:11] LABS: Alkaline Phosphatase 96 U/L (40-110); Calc. Creatinine Clearance 0 mL/min (70-130); Estimated GFR-MDRD 26
[2019-08-20 05:12] LABS: BUN (Urea Nitrogen) 96 mg/dL (9.8-20.1)
[2019-08-20 05:13] LABS: AST (SGOT) 22 U/L (5-34)
[2019-08-20 05:14] LABS: ALT (SGPT) 16 U/L (8-55)
[2019-08-20] MEDS ORDERED: Ondansetron PF 4 MG/2 ML Vial IVP PRN ×2 (05:27→05:35)
[2019-08-20] MEDS ORDERED: Ondansetron ODT 4 MG TAB SL PRN (05:27)
[2019-08-20] MEDS ORDERED: Acetaminophen 325 MG TAB PO PRN (05:27)
[2019-08-20] MEDS ORDERED: Ondansetron ODT 4 MG TAB PO PRN (05:35)
[2019-08-20] MEDS ORDERED: hydrALAZINE 20 MG/ML VIAL SLOW IVP PRN (05:35)
--- NOTE | 2019-08-20 05:51 | HP ---
PRIMARY CARE PHYSICIAN: Dr. Lopez. CHIEF COMPLAINT: Fever and redness on both hips. HISTORY OF PRESENT ILLNESS: Ms. Trinidad is a pleasant 83-year-old female, who has history of hypertension and chronic lymphedema. She has a history of cellulitis in the lower extremities due to her chronic lymphedema which she has been treated for off and on over the past year. She goes to the [facility] here at [place] and also sees Dr. Cai. She was recently discharged from our facility due to lower extremity cellulitis and was placed on IV antibiotics and then transitioned to chronic suppressive therapy with doxycycline and Keflex and then on yesterday, her daughter noticed a red spot on the left hip and then later on, it progressed to the right hip as well. The patient became nauseated and her caregiver took her temperature and noticed that it was 101 and for this reason, they brought her to the ER for evaluation. In the ER, she was found to have an elevated white blood cell count as well as an elevated lactic acid and was noted to have redness on both hips and is being admitted for cellulitis. Otherwise, the patient denies any other complaints. She does admit to poor appetite, but no other symptoms. REVIEW OF SYSTEMS: All systems were reviewed and are negative except for that mentioned in the history of present illness. PAST MEDICAL HISTORY: Significant for right knee cellulitis, hypertension, lymphedema, history of DVT and PE, history of non-Hodgkin's lymphoma as well as chronic kidney disease stage 3, and anemia. PAST SURGICAL HISTORY: She has had an I and D of the left leg hematoma as well as a cholecystectomy and bilateral cataract surgery. ALLERGIES: TO PENICILLIN AND NITROFURANTOIN. SOCIAL HISTORY: She is a full code. She is a nonsmoker and nondrinker. She lives independently and has 24-hour caregiving service and she has [facility] and get home PT and wound care. FAMILY HISTORY: No history of any known heritable diseases. CURRENT MEDICATIONS: Include; 1. Allopurinol 100 mg four times a day. 2. Docusate Plus. 3. Doxycycline 100 mg once daily. 4. Flonase nasal spray two sprays intranasally daily. 5. Duloxetine 60 mg daily. 6. Demadex 20 mg daily. 7. Gabapentin 100 mg daily. 8. Keflex 250 mg twice a day. 9. Coreg 12.5 mg twice daily. 10. Hydralazine 100 mg t.i.d. 11. Protonix 40 mg daily. 12. Potassium chloride 10 mEq daily. 13. Tramadol 50 mg twice a day. 14. Tylenol 500 mg three times a day. 15. Vitamin C 1000 mg daily. 16. Folic acid 1000 mcg p.o. daily. 17. Ferrous sulfate 325 mg twice a day. 18. Floranex one tablet twice a day. 19. Magnesium oxide 400 mg twice daily. 20. Zinc sulfate 220 mg daily. 21. Warfarin 6 mg daily. 22. Cain p.r.n. 23. [place] 10/325 once daily. 24. Melatonin 10 mg daily. 25. Estrace intravaginally. 26. Albuterol inhaler. PHYSICAL EXAMINATION: GENERAL: She is alert and oriented. She appears to be in no acute distress. She is well developed and well nourished. VITAL SIGNS: Blood pressure was 123/65, heart rate 81, respiratory rate of 20, and temperature was 100.4. HEENT: Pupils are equal, round, and reactive. Extraocular muscles are intact. Sclerae anicteric. Throat, no erythema, no exudates. NECK: No adenopathy. No bruits. LUNGS: Clear to auscultation. There is no wheezing, no rales, no rhonchi. CARDIOVASCULAR: She has a normal S1, S2. She does have a grade 2/6 systolic murmur. ABDOMEN: Obese. It is soft, nontender, and nondistended. Positive for bowel sounds. No rebound. No guarding. EXTREMITIES: She has massive lower extremity edema. There is erythema on both of her legs from about the knees down and some weeping of the skin and then on both hips, it is a fairly large area of splotchy erythema and warmth. There is no induration, no fluctuance, and no skin breakdown. LABORATORY RESULTS: White blood cell count 23, hemoglobin 13.8, hematocrit is 45, platelet count is 285. Lactic acid was 3.0. ASSESSMENT: This is an 83-year-old female, who presents with acute on chronic cellulitis. At this time, the cellulitis has extended up to both hips. She is meeting sepsis criteria with elevated white count, fever, and elevated lactic acid. Since she has been on chronic suppressive antibiotics and has had a hospital stay recently, we will need to cover her with broad spectrum IV antibiotics. We will consult ID to help in antibiotic choice and length of therapy. 1. History of deep venous thrombosis and pulmonary embolism. We will continue Coumadin and monitor PT and INR. 2. Hypertension. We will need to reconcile and restart her home medications and have p.r.n. medicines available as needed. 3. Chronic kidney disease stage 3. She requests that Dr. Sebastian, her search coordinator, be consulted. 4. The patient's daughter also called requests Dr. Alejo be consulted for Cardiology. Job ID: [id number]
[2019-08-20 05:58] VITALS: BMI 35.8
[2019-08-20] MEDS ORDERED: Clindamycin/D5W 900 MG in Premix Bag 1 BAG IVPB SCH (06:00)
[2019-08-20] MEDS ORDERED: Vancomycin HCl 500 MG in Sodium Chloride 0.9% 100 ML IVPB SCH (06:15)
[2019-08-20 06:16] LABS: INR-International Normal Ratio 3.1; Prothrombin Time 31.9 SEC (12.0-14.7)
[2019-08-20] MEDS ORDERED: FLU VACC TS2019-20(65YR UP)/PF 180 MCG/0.5 ML SYRINGE IM ONE (06:30)
[2019-08-20 07:14] LABS: Lactic Acid 2.4 mmol/L (0.5-2.2)
[2019-08-20] MEDS: Clindamycin/D5W 600 MG in Premix Bag 1 BAG IVPB SCH ×4 (07:20→23:25)
[2019-08-20] MEDS: Allopurinol 100 MG TAB PO SCH (10:20)
[2019-08-20] MEDS: DULoxetine 60 MG CAP PO SCH (10:20)
[2019-08-20] MEDS: Saccharomyces boulardii 250 MG CAP PO SCH (10:20)
[2019-08-20] MEDS: Zinc Sulfate 220 MG CAP PO SCH (10:20)
[2019-08-20] MEDS: HYDROcodone/Acetaminophen 10/325 mg Tablet PO PRN (10:20)
[2019-08-20] MEDS ORDERED: cloNIDine 0.1 MG TAB PO PRN (14:26)
[2019-08-20] MEDS: hydrALAZINE 25 MG TAB PO SCH ×2 (16:04→20:39)
[2019-08-20] MEDS ORDERED: Carvedilol 6.25 MG TAB PO SCH (17:00)
[2019-08-20] MEDS ORDERED: Warfarin Sodium 3 MG TAB PO SCH (17:00)
[2019-08-20] MEDS ORDERED: Torsemide 20 MG TAB PO SCH (17:00)
--- NOTE | 2019-08-20 18:03 | PRG ---
DATE OF SERVICE: 08/20/2019 SUBJECTIVE: Ms. Trinidad was admitted to the hospital with cellulitis. She is back on her diuretics. OBJECTIVE: VITAL SIGNS: Blood pressure 169/80, pulse 76. LUNGS: Clear. CARDIAC: Normal S1. Normal S2. ABDOMEN: Soft and nontender. EXTREMITIES: There is stotczax-hx-ywdsyl edema. ASSESSMENT: 1. Congestive heart failure, diastolic, chronic. 2. Venous insufficiency. 3. Cellulitis. PLAN: 1. Continue current medical regimen as outlined by Dr. Gant. 2. She is also on antibiotics. 3. We could continue the cold compression boots as she has been doing at home that has helped her lymphedema. Job ID: [id number]
[2019-08-20] MEDS: traMADol HCl 50 MG TAB PO PRN (18:15)
[2019-08-20] MEDS: Acetaminophen 500 MG TAB PO PRN (18:16)
[2019-08-20] MEDS ORDERED: Albuterol Sulfate 2.5 mg/3 ml Neb NEB PRN (19:00)
[2019-08-20] MEDS: Melatonin 3 MG TAB PO SCH (20:38)
[2019-08-20] MEDS: Magnesium Oxide 400 MG TAB PO SCH (20:40)
[2019-08-20] MEDS: Carvedilol 6.25 MG TAB PO SCH (20:40)
[2019-08-20] MEDS: Docusate 100 MG CAP PO SCH (20:40)
[2019-08-20] MEDS: Gabapentin 100 MG CAP PO SCH (20:40)
[2019-08-20] MEDS: Potassium Chloride 10 MEQ TAB PO SCH (20:41)
[2019-08-20] MEDS: Ferrous Sulfate 325 MG TAB PO SCH (20:41)
[2019-08-20] MEDS: Lactinex Tablet PO SCH (20:41)
[2019-08-20] MEDS: Estradiol 0.01% Vaginal Cream 42.5 gm Tube VAG SCH (20:41)
[2019-08-20] MEDS: Nystatin Powder 15 GM BOT TOP SCH (20:42)
[2019-08-20] MEDS ORDERED: Estradiol 0.01% Vaginal Cream 42.5 gm Tube VAG SCH (21:00)
--- NOTE | 2019-08-20 23:10 | CON ---
DATE OF CONSULTATION: 08/20/2019 CONSULTING PHYSICIAN: Shailesh Tyson MD REASON FOR CONSULTATION: Chronic kidney disease. REASON FOR ADMISSION: Fever and redness and skin wound. HISTORY OF PRESENT ILLNESS: This is an 83-year-old white female with history of CKD, lymphoma, DVT, PE and chronic edema, came to the hospital with the above complaints and Nephrology is consulted because of her history of CKD and mild elevation in creatinine. The patient is not feeling well this morning. She denies any fever or chills. No nausea or vomiting. No chest pain or palpitation. PAST MEDICAL HISTORY: Positive for hypertension, CKD, lymphedema, DVT, PE and lymphoma. PAST SURGICAL HISTORY: I and D, cholecystectomy, and cataract surgery. HOME MEDICATIONS: Include 1. Allopurinol. 2. Doxycycline. 3. Flonase. 4. Duloxetine. 5. Demadex. 6. Gabapentin. 7. Keflex. 8. Coreg. 9. Hydralazine. 10. Protonix. 11. Potassium. 12. Tramadol. 13. Tylenol. 14. Vitamin C. 15. Folic acid. 16. Ferrous sulfate. 17. Floranex. 18. Magnesium oxide. 19. Zinc sulfate. 20. Warfarin. 21. Sunset. 22. Melatonin. 23. Estrace. 24. Albuterol. ALLERGIES: PENICILLINS, NITROFURANTOIN, AND BACTRIM. SOCIAL HISTORY: No smoking, alcohol, or illicit drugs. FAMILY HISTORY: No history of kidney disease. REVIEW OF SYSTEMS: CONSTITUTIONAL: Negative for weight loss or gain, ability to conduct usual activities. SKIN: Negative for rash, itching. EYES: Negative for double vision, pain. ENT/MOUTH: Negative for nose bleeding, neck stiffness, pain, tenderness. CARDIOVASCULAR: Negative for palpitations, dyspnea on exertion, orthopnea. RESPIRATORY: Negative for shortness of breath, wheezing, cough, hemoptysis, fever or night sweats. GASTROINTESTINAL: Negative for poor appetite, abdominal pain, heartburn, nausea, vomiting, constipation, or diarrhea. GENITOURINARY: Negative for urgency, frequency, dysuria, nocturia. MUSCULOSKELETAL: Negative for pain, swelling. NEUROLOGIC/PSYCHIATRIC: Negative for anxiety, depression. ALLERGY/IMMUNOLOGIC: Negative for skin rash, bleeding tendency. Rest are negative. PHYSICAL EXAMINATION: GENERAL: This is an obese female, in no apparent. VITAL SIGNS: Temperature 98.5, pulse 76, respiratory rate . HEENT: Atraumatic and normocephalic. Oral mucosa moist. NECK: Supple. CVS: S1, S2 heard. Rate and rhythm regular. RESPIRATORY: Clear. GI: Abdomen is soft. MUSCULOSKELETAL: No tenderness. No edema. DERMATOLOGIC: No skin rash. NEUROLOGIC: Alert and awake and oriented x3. No focal neurologic deficits. Moving all the extremities. PSYCHIATRIC: Mood and affect normal. LABORATORY DATA: Hemoglobin is 12.6, potassium 4.2, BUN is 96, creatinine is 1.8. ASSESSMENT AND PLAN: 1. Acute kidney injury on chronic kidney disease, stage 4. Avoid nephrotoxins. Renal function close to her baseline. Baseline creatinine is around 1.5. 2. Edema, chronic. 3. Anemia, mild. 4. Acidosis with elevated lactate and lactic acidosis. 5. Continue antibiotics and supportive care. Avoid nephrotoxins. IV fluids if tolerated and we will follow. Currently on torsemide. She will follow. Thank you for the consult. Job ID: [id number]
[2019-08-21] MEDS ORDERED: Cefepime 1 GM in Sodium Chloride 0.9% 100 ML IVPB SCH (04:00)
[2019-08-21] MEDS ORDERED: Vancomycin HCl 1 GM in Premix Bag 1 BAG IVPB SCH (05:00)
[2019-08-21] MEDS: Clindamycin/D5W 600 MG in Premix Bag 1 BAG IVPB SCH ×3 (05:34→16:22)
[2019-08-21 05:45] LABS: Prothrombin Time 44.5 SEC (12.0-14.7)
[2019-08-21 05:51] LABS: INR-International Normal Ratio 4.8
[2019-08-21 05:55] LABS: Band 7 % (5-11); Eosinophils 1 % (0-10); Hemoglobin 9.9 g/dL (12.0-16.0); Lymphocytes 9 % (21-51); MDiff Complete? YES; Mean Corpuscular HGB CONC 31.9 g/dL (32.0-36.0); Mean Corpuscular Hemoglobin 30.3 pg (27.0-31.0); Mean Corpuscular Volume 94.9 fL (78.0-98.0); Mean Platelet Volume 8.3 fL (7.4-10.4); Monocytes 7 % (0-10); Neutrophil 75 % (42-75); Platelet Count 255 thou/uL (130-400); Platelet Morphology Comment Appears Adequate; RBC Distribution Width 16.2 % (11.5-14.5); RBC Morphology Normal; Reactive Lymphocytes 1 % (0-10); Red Blood Cell (RBC) Count 3.26 mill/uL (4.20-5.40); White Blood Cell (WBC) Count 11.2 thou/uL (4.8-10.8)
[2019-08-21 06:08] LABS: Anion Gap 16 mmol/L (10-20); BUN (Urea Nitrogen) 96 mg/dL (9.8-20.1); Calc. Creatinine Clearance 32 mL/min (70-130); Calcium 9.8 mg/dL (7.8-10.44); Carbon Dioxide 28 mmol/L (23-31); Chloride 96 mmol/L (98-107); Estimated GFR-MDRD 24; Glucose 108 mg/dL (83-110); Magnesium 2.8 mg/dL (1.6-2.6); Potassium 3.9 mmol/L (3.5-5.1); Sodium 136 mmol/L (136-145)
--- NOTE | 2019-08-21 08:22 | PRG ---
DATE OF SERVICE: 08/21/2019 SUBJECTIVE: Patient was seen and examined at bedside and overnight events noted. Patient denies any shortness of breath or chest pain or palpitation. No history of nausea or vomiting or diarrhea or fever or chills or cramps. OBJECTIVE: GENERAL: This is an obese female, in no apparent distress. VITAL SIGNS: Temperature . Heart rate 66. Respiratory rate 18. Blood pressure 137/58. HEENT: Atraumatic, normocephalic. Oral mucosa is moist NECK: Supple. CARDIOVASCULAR: S1, S2 heard. Rate and rhythm regular. RESPIRATORY: Clear to auscultation. GASTROINTESTINAL: Abdomen is soft. MUSCULOSKELETAL: No tenderness. No edema. DERMATOLOGIC: No skin rash. NEUROLOGIC: Alert and awake and oriented x3. No focal neurologic deficits. Moving all the extremities. PSYCHIATRIC: Mood and affect normal. LABORATORY DATA: Potassium is 3.9, BUN is 96, creatinine is 1.9. ASSESSMENT AND PLAN: 1. Acute kidney injury on chronic kidney disease stage 4. Slight bump in creatinine. We will make torsemide 40 mg daily. 2. Elevated BUN with azotemia. We will reduce the diuretic dose. 3. Edema with secondary lymphedema. 4. Anemia. 5. Acidosis, stable. We will reduce the torsemide dose and monitor. Limit fluid and salt intake. Job ID: [id number]
[2019-08-21] MEDS: Gabapentin 100 MG CAP PO SCH ×2 (08:53→21:52)
[2019-08-21] MEDS: Saccharomyces boulardii 250 MG CAP PO SCH (08:53)
[2019-08-21] MEDS: Docusate 100 MG CAP PO SCH ×2 (08:53→21:52)
[2019-08-21] MEDS: Carvedilol 6.25 MG TAB PO SCH ×2 (08:54→21:52)
[2019-08-21] MEDS: Zinc Sulfate 220 MG CAP PO SCH (08:55)
[2019-08-21] MEDS: Multivit, Therapeutic 1 TAB PO SCH (08:55)
[2019-08-21] MEDS: hydrALAZINE 25 MG TAB PO SCH ×3 (08:56→21:54)
[2019-08-21] MEDS: Ascorbic Acid 500 mg Chewable Tablet PO SCH (08:56)
[2019-08-21] MEDS: Potassium Chloride 10 MEQ TAB PO SCH ×2 (08:56→21:53)
[2019-08-21] MEDS: Allopurinol 100 MG TAB PO SCH (08:57)
[2019-08-21] MEDS: Lactinex Tablet PO SCH ×2 (08:57→21:52)
[2019-08-21] MEDS: Cyanocobalamin (Vitamin B-12) 1,000 MCG TAB PO SCH (08:57)
[2019-08-21] MEDS: DULoxetine 60 MG CAP PO SCH (08:58)
[2019-08-21] MEDS: Ferrous Sulfate 325 MG TAB PO SCH ×2 (08:59→21:52)
[2019-08-21] MEDS: traMADol HCl 50 MG TAB PO PRN ×2 (09:02→18:18)
[2019-08-21] MEDS: Torsemide 20 MG TAB PO SCH (09:03)
[2019-08-21] MEDS: Acetaminophen 325 MG TAB PO PRN ×2 (09:03→17:06)
[2019-08-21] MEDS: Fluticasone Propionate Nasal Spray 16 gm Bottle NASAL SCH (09:16)
[2019-08-21] MEDS: Magnesium Oxide 400 MG TAB PO SCH (09:16)
[2019-08-21] MEDS: Nystatin Powder 15 GM BOT TOP SCH ×2 (09:16→21:55)
[2019-08-21 09:46] LABS: Hemoglobin 10.1 g/dL (12.0-16.0)
[2019-08-21] MEDS ORDERED: Phytonadione 10 MG/ML AMP PO SCH (15:45)
--- NOTE | 2019-08-21 16:08 | PDOC.HOSPP ---
- Subjective Encounter Date: 08/21/19 Encounter Time: 16:05 Subjective: Ms. Trinidad was seen today in follow-up of cellulitis of the hips. She notes feeling more tired today than usual. Otherwise no complaints. - Objective Vital Signs & Weight: Vital Signs (12 hours) Temp Pulse Resp BP BP BP Pulse Ox 08/21/19 11:53 98.3 F 63 17 105/56 L 94 L 08/21/19 08:56 66 08/21/19 08:54 130/66 08/21/19 07:28 98.8 F 66 17 137/58 L 100 08/21/19 06:34 68 100 08/21/19 05:53 97.8 F 106 H 16 162/98 H 93 L Weight Admit Weight 208 lb 9.6 oz Weight 208 lb 9.6 oz Result Diagrams: 08/21/19 09:17 08/21/19 05:31 Additional Labs: Accuchecks 08/21/19 05:10 POC Glucose 135 H Hospitalist ROS - Medication Medications: Active Medications Generic Name Dose Route Start Last Admin Trade Name Freq PRN Reason Stop Dose Admin Acetaminophen 650 mg 08/20/19 05:35 08/21/19 09:03 Tylenol PO 650 mg Q4H PRN Administration Headache/Fever/Mild Pain (1-3) Acetaminophen 500 mg 08/20/19 14:23 08/20/19 18:16 Tylenol PO 500 mg Q4H PRN Administration with Tramadol Hydrocodone Bitart/Acetaminophen 1 tab 08/20/19 05:35 08/20/19 10:20 [place] 10/325 PO 1 tab Q4H PRN Administration Moderate Pain (4-6) Acidophilus 1 tab 08/20/19 21:00 08/21/19 08:57 Floranex PO 1 tab BID CODY Administration Allopurinol 100 mg 08/20/19 09:00 08/21/19 08:57 Zyloprim PO 100 mg 0900 CODY Administration Ascorbic Acid 1,000 mg 08/21/19 09:00 08/21/19 08:56 Vitamin C PO 1,000 mg DAILY CODY Administration Carvedilol 12.5 mg 08/20/19 21:00 08/21/19 08:54 Coreg PO 12.5 mg BID CODY Administration Cyanocobalamin 1,000 mcg 08/21/19 09:00 08/21/19 08:57 Vitamin B-12 PO 1,000 mcg 0900 CODY Administration Docusate Sodium 100 mg 08/20/19 21:00 08/21/19 08:53 Colace PO 100 mg BID CODY Administration Duloxetine HCl 60 mg 08/20/19 09:00 08/21/19 08:58 Cymbalta PO 60 mg 0900 CODY Administration Estradiol 2 gm 08/20/19 21:00 08/20/19 20:41 Estrace 0.01% Vaginal Cream VAG 2 gm 2100 CODY Administration Ferrous Sulfate 325 mg 08/20/19 21:00 08/21/19 08:59 Feosol PO 325 mg BID CODY Administration Fluticasone Propionate 0 gm 08/21/19 09:00 08/21/19 09:16 Flonase Nasal [place] NASAL Not Given DAILY CODY Gabapentin 200 mg 08/20/19 21:00 08/20/19 20:40 Neurontin PO 200 mg 2100 CODY Administration Gabapentin 100 mg 08/21/19 09:00 08/21/19 08:53 Neurontin PO 100 mg 0900 CODY Administration Hydralazine HCl 100 mg 08/20/19 15:00 08/21/19 08:56 Apresoline PO 100 mg TID COYD Administration Cefepime HCl 1 gm/ Sodium 100 mls @ 200 mls/hr 08/21/19 04:00 08/21/19 04:20 Chloride IVPB 100 mls Q24HR@0400 CODY Administration Clindamycin Phosphate/Dextrose 50 mls @ 100 mls/hr 08/20/19 06:00 08/21/19 09 :16 600 mg/ Device IVPB 50 mls Q6HR CODY Administration Vancomycin HCl 1 gm/ Device 200 mls @ 200 mls/hr 08/21/19 05:00 08/21/19 06: 17 IVPB 200 mls 0500 CODY Administration Melatonin 9 mg 08/20/19 21:00 08/20/19 20:38 Melatonin PO 9 mg HS CODY Administration Multivitamins 1 tab 08/21/19 09:00 08/21/19 08:55 Theragran PO 1 tab DAILY CODY Administration Nystatin 0 gm 08/20/19 21:00 08/21/19 09:16 Mycostatin Powder TOP Not Given BID [facility] Pantoprazole Sodium 40 mg 08/20/19 09:00 08/21/19 09:03 Protonix PO 40 mg 0900 CODY Administration Potassium Chloride 10 meq 08/20/19 21:00 08/21/19 08:56 Klor-Con 10 PO 10 meq BID CODY Administration Saccharomyces Boulardii 250 mg 08/20/19 09:00 08/21/19 08:53 Florastor PO 250 mg DAILY CODY Administration Torsemide 40 mg 08/21/19 09:00 08/21/19 09:03 Demadex PO 40 mg 0900 CODY Administration Tramadol HCl 50 mg 08/20/19 14:23 08/21/19 09:02 Ultram PO 50 mg Q4H PRN Administration Moderate Pain (4-6) Zinc Sulfate 220 mg 08/20/19 09:00 08/21/19 08:55 Zinc Sulfate PO 220 mg 0900 CODY Administration - Exam Eye: PERRL, anicteric sclera Heart: RRR, no murmur, no gallops, no rubs, normal peripheral pulses Respiratory: CTAB, no wheezes, no rales, no ronchi, normal chest expansion, no tachypnea, normal percussion Gastrointestinal: soft, non-tender, non-distended, normal bowel sounds, no palpable masses, no hepatomegaly (Mild erythema over the lower abdomen) Extremities: 2+ LE edema (massive edema in both lower extremities, erythema, has improved + erythema over both hips, this is about the same as that on admission, no warnth, no fluctuance) Hosp A/P (1) Cellulitis of both lower extremities Code(s): L03.115 - CELLULITIS OF RIGHT LOWER LIMB; L03.116 - CELLULITIS OF LEFT LOWER LIMB Status: Acute (2) Sepsis Code(s): A41.9 - SEPSIS, UNSPECIFIED ORGANISM Status: Acute (3) Hypertension Code(s): I10 - ESSENTIAL (PRIMARY) HYPERTENSION Status: Chronic Qualifiers: Hypertension type: essential hypertension Qualified Code(s): I10 - Essential (primary) hypertension (4) FAUSTINO (obstructive sleep apnea) Code(s): G47.33 - OBSTRUCTIVE SLEEP APNEA (ADULT) (PEDIATRIC) Status: Chronic (5) Obesity (BMI 30-39.9) Code(s): E66.9 - OBESITY, UNSPECIFIED Status: Chronic (6) Physical deconditioning Code(s): R53.81 - OTHER MALAISE Status: Chronic (7) CKD (chronic kidney disease) stage 4, GFR 15-29 ml/min Code(s): N18.4 - CHRONIC KIDNEY DISEASE, STAGE 4 (SEVERE) Status: Chronic - Plan * Cellulitis of both lower extremities with sepsis- continue the current antibiotics. Sepsis is resolving, WBC count has improved. The area on her hips however, may be more from contact dermatitis, or pressure from the compression device- while being on coumadin- will await ID input * Coagulopathy from coumadin0 will give a dose of Vitamin K, and hold coumadin again today * CKD stage 4- she had a slight increase in her creatinine- Her dose of Torsemide has been cut in half * HTN- blood pressure is stable * Deconditioning- PT and OT have been ordered * Hypermagnesemia- Hold magnesium replacement
[2019-08-21] MEDS ORDERED: WARFARIN SODIUM 6 MG PO SCH (17:00)
[2019-08-21] MEDS ORDERED: Warfarin Sodium 3 MG TAB PO SCH ×2 (17:00)
--- NOTE | 2019-08-21 19:14 | CT ---
CT OF ABDOMEN AND PELVIS PERFORMED WITHOUT CONTRAST ENHANCEMENT: 08/21/19 HISTORY: Sepsis, bilateral hydronephrosis. COMPARISON: 04/15/19 study. The lung bases show small bilateral pleural effusions. There is left lower lobe atelectasis versus de veloping infiltrate. Tiny amount of pericardial fluid is incidentally seen. The liver, spleen, and pancreas regions appear unremarkable. The pancreas is atrophic. The gallbladde r has been removed. Right and left adrenal glands are normal. The left kidney is a hydronephrotic shell with very thin co rtex. There is marked dilatation of the left collecting system and ureter to the level of the bladder which was present on the previous exam unchanged. Right sided hydronephrosis and hydroureter has als o a similar appearance to the previous study. No significant periaortic or mesenteric adenopathy. CT OF PELVIS PERFORMED WITHOUT CONTRAST ENHANCEMENT: There is no evidence of adenopathy, mass or free fluid. Sigmoid diverticulosis is seen. IMPRESSION: 1. Small bilateral pleural effusions with left lower lobe atelectasis versus early infiltrate. 2. Stable bilateral hydronephrosis with a markedly atrophic left kidney. 3. Sigmoid diverticulosis. POS: [facility]
[2019-08-21] MEDS: Melatonin 3 MG TAB PO SCH (21:52)
[2019-08-21] MEDS: HYDROcodone/Acetaminophen 10/325 mg Tablet PO PRN (21:53)
[2019-08-21] MEDS: Estradiol 0.01% Vaginal Cream 42.5 gm Tube VAG SCH (21:55)
[2019-08-22 01:08] LABS: Bacteria/HPF 1+ HPF (None Seen); Bilirubin Negative (Negative); Blood, Urine Negative (Negative); Clarity Clear (Clear); Glucose, Urine (Dipstick) Normal (Negative); Leukocyte 500 Leu/uL (Negative); Nitrite Negative (Negative); Protein, Urine (Dipstick) 20 mg/dL (Neg-Trace); Squamous Epithelial 0-3 HPF (0-3); Urobilinogen Normal mg/dL (Less than 2)
[2019-08-22 04:38] LABS: Prothrombin Time 22.2 SEC (12.0-14.7)
[2019-08-22 04:42] LABS: Band 8 % (5-11); Hemoglobin 9.7 g/dL (12.0-16.0); Hypochromia SLIGHT = 6-15 cells (100X) (0-5/hpf); Lymphocytes 5 % (21-51); MDiff Complete? YES; Mean Corpuscular HGB CONC 31.9 g/dL (32.0-36.0); Mean Corpuscular Volume 94.1 fL (78.0-98.0); Mean Platelet Volume 8.6 fL (7.4-10.4); Monocytes 5 % (0-10); Neutrophil 82 % (42-75); Platelet Count 247 thou/uL (130-400); Platelet Morphology Comment Appears Adequate; RBC Distribution Width 16.2 % (11.5-14.5); Red Blood Cell (RBC) Count 3.23 mill/uL (4.20-5.40); White Blood Cell (WBC) Count 8.5 thou/uL (4.8-10.8)
[2019-08-22 04:55] LABS: Vancomycin, Trough 14.2 ug/mL
[2019-08-22 04:56] LABS: Anion Gap 13 mmol/L (10-20); BUN (Urea Nitrogen) 93 mg/dL (9.8-20.1); Calc. Creatinine Clearance 37 mL/min (70-130); Calcium 9.9 mg/dL (7.8-10.44); Carbon Dioxide 33 mmol/L (23-31); Chloride 95 mmol/L (98-107); Estimated GFR-MDRD 28; Glucose 109 mg/dL (83-110); Potassium 3.7 mmol/L (3.5-5.1); Sodium 137 mmol/L (136-145)
[2019-08-22] MEDS: Acetaminophen 500 MG TAB PO PRN ×3 (05:37→19:49)
[2019-08-22] MEDS: traMADol HCl 50 MG TAB PO PRN ×3 (05:37→19:49)
[2019-08-22] MEDS: Carvedilol 6.25 MG TAB PO SCH ×2 (07:11→20:50)
[2019-08-22] MEDS: hydrALAZINE 25 MG TAB PO SCH ×3 (07:11→20:50)
--- NOTE | 2019-08-22 08:47 | PRG ---
DATE OF SERVICE: 08/22/2019 SUBJECTIVE: Patient was seen and examined at bedside and overnight events noted. Patient denies any shortness of breath or chest pain or palpitation. No history of nausea or vomiting or diarrhea or fever or chills or cramps. OBJECTIVE: GENERAL: This is an obese female, in no acute distress. VITAL SIGNS: Temperature 98.6. Heart rate 71. Respiratory rate 16. Blood pressure 137/74. HEENT: Atraumatic, normocephalic. Oral mucosa is moist NECK: Supple. CARDIOVASCULAR: S1, S2 heard. Rate and rhythm regular. RESPIRATORY: Clear to auscultation. GASTROINTESTINAL: Abdomen is soft. MUSCULOSKELETAL: No tenderness. No edema. DERMATOLOGIC: No skin rash. NEUROLOGIC: Alert and awake and oriented X3. No focal neurologic deficits. Moving all the extremities. PSYCHIATRIC: Mood and affect normal. LABORATORY DATA: Potassium is 3.7, BUN is 93, and creatinine is 1.7. ASSESSMENT AND PLAN: 1. Acute kidney injury on chronic kidney disease, stage 4. Renal function is slightly better. Creatinine is better. 2. We will continue torsemide 40 mg p.o. daily. 3. Azotemia with elevated BUN. 4. Edema. 5. Lymphedema. 6. Anemia. 7. Acidosis. We will continue on torsemide 40 mg p.o. daily. Continue lymphedema treatments and limit fluid intake and we will follow. Job ID: [id number]
[2019-08-22] MEDS: DULoxetine 60 MG CAP PO SCH (08:54)
[2019-08-22] MEDS: Lactinex Tablet PO SCH ×2 (08:55→20:48)
[2019-08-22] MEDS: Saccharomyces boulardii 250 MG CAP PO SCH (08:55)
[2019-08-22] MEDS: Zinc Sulfate 220 MG CAP PO SCH (08:55)
[2019-08-22] MEDS: Cyanocobalamin (Vitamin B-12) 1,000 MCG TAB PO SCH (08:55)
[2019-08-22] MEDS: Gabapentin 100 MG CAP PO SCH ×2 (08:56→20:48)
[2019-08-22] MEDS: Docusate 100 MG CAP PO SCH ×2 (08:56→20:48)
[2019-08-22] MEDS: Torsemide 20 MG TAB PO SCH (08:57)
[2019-08-22] MEDS: Ferrous Sulfate 325 MG TAB PO SCH ×2 (08:58→20:48)
[2019-08-22] MEDS: Allopurinol 100 MG TAB PO SCH (08:58)
[2019-08-22] MEDS: Multivit, Therapeutic 1 TAB PO SCH (08:58)
[2019-08-22] MEDS: Ascorbic Acid 500 mg Chewable Tablet PO SCH (08:58)
[2019-08-22] MEDS: Potassium Chloride 10 MEQ TAB PO SCH ×2 (08:58→20:48)
[2019-08-22] MEDS: Fluticasone Propionate Nasal Spray 16 gm Bottle NASAL SCH (09:04)
[2019-08-22] MEDS: Nystatin Powder 15 GM BOT TOP SCH ×2 (09:54→20:49)
--- NOTE | 2019-08-22 14:20 | PDOC.HOSPP ---
- Subjective Encounter Date: 08/22/19 Encounter Time: 14:18 Subjective: Ms. Trinidad was seen today in follow-up of sepsis- ? etiology. She is feeling a little better today. no new complaints. - Objective Vital Signs & Weight: Vital Signs (12 hours) Temp Pulse Pulse Resp BP BP BP 08/22/19 10:15 68 137/74 08/22/19 08:45 70 123/71 08/22/19 07:11 68 08/22/19 07:04 98 F 68 17 92/58 L 08/22/19 04:00 98.6 F 71 16 137/74 Pulse Ox Pulse Ox 08/22/19 10:15 99 08/22/19 08:45 08/22/19 07:11 08/22/19 07:04 99 08/22/19 04:00 100 Weight Admit Weight 208 lb 9.6 oz Weight 208 lb 9.6 oz I&O: 08/21/19 08/22/19 08/23/19 07:59 06:59 06:59 Intake Total Output Total Balance Result Diagrams: 08/22/19 04:20 08/22/19 04:20 Hospitalist ROS - Medication Medications: Active Medications Generic Name Dose Route Start Last Admin Trade Name Freq PRN Reason Stop Dose Admin Acetaminophen 650 mg 08/20/19 05:35 08/21/19 17:06 Tylenol PO 650 mg Q4H PRN Administration Headache/Fever/Mild Pain (1-3) Acetaminophen 500 mg 08/20/19 14:23 08/22/19 11:13 Tylenol PO 500 mg Q4H PRN Administration with Tramadol Hydrocodone Bitart/Acetaminophen 1 tab 08/20/19 05:35 08/21/19 21:53 [place] 10/325 PO 1 tab Q4H PRN Administration Moderate Pain (4-6) Acidophilus 1 tab 08/20/19 21:00 08/22/19 08:55 Floranex PO 1 tab BID CODY Administration Allopurinol 100 mg 08/20/19 09:00 08/22/19 08:58 Zyloprim PO 100 mg 0900 CODY Administration Ascorbic Acid 1,000 mg 08/21/19 09:00 08/22/19 08:58 Vitamin C PO 1,000 mg DAILY C[facility] Administration Carvedilol 12.5 mg 08/20/19 21:00 08/22/19 07:11 Coreg PO Not Given BID [facility] Cyanocobalamin 1,000 mcg 08/21/19 09:00 08/22/19 08:55 Vitamin B-12 PO 1,000 mcg 0900 CODY Administration Docusate Sodium 100 mg 08/20/19 21:00 08/22/19 08:56 Colace PO 100 mg BID CODY Administration Duloxetine HCl 60 mg 08/20/19 09:00 08/22/19 08:54 Cymbalta PO 60 mg 0900 CODY Administration Estradiol 2 gm 08/20/19 21:00 08/21/19 21:55 Estrace 0.01% Vaginal Cream VAG 2 gm 2100 CODY Administration Ferrous Sulfate 325 mg 08/20/19 21:00 08/22/19 08:58 Feosol PO 325 mg BID CODY Administration Fluticasone Propionate 0 gm 08/21/19 09:00 08/22/19 09:04 Flonase Nasal [place] NASAL Not Given DAILY CODY Gabapentin 200 mg 08/20/19 21:00 08/21/19 21:52 Neurontin PO 200 mg 2100 CODY Administration Gabapentin 100 mg 08/21/19 09:00 08/22/19 08:56 Neurontin PO 100 mg 0900 CODY Administration Hydralazine HCl 100 mg 08/20/19 15:00 08/22/19 07:11 Apresoline PO Not Given TID [facility] Melatonin 9 mg 08/20/19 21:00 08/21/19 21:52 Melatonin PO 9 mg HS [facility] Administration Multivitamins 1 tab 08/21/19 09:00 08/22/19 08:58 Theragran PO 1 tab DAILY [facility] Administration Nystatin 0 gm 08/20/19 21:00 08/22/19 09:54 Mycostatin Powder TOP Not Given BID [facility] Pantoprazole Sodium 40 mg 08/20/19 09:00 08/22/19 08:55 Protonix PO 40 mg 0900 CODY Administration Potassium Chloride 10 meq 08/20/19 21:00 08/22/19 08:58 Klor-Con 10 PO 10 meq BID [facility] Administration Saccharomyces Boulardii 250 mg 08/20/19 09:00 08/22/19 08:55 Florastor PO 250 mg DAILY [facility] Administration Torsemide 40 mg 08/21/19 09:00 08/22/19 08:57 Demadex PO 40 mg 0900 CODY Administration Tramadol HCl 50 mg 08/20/19 14:23 08/22/19 11:14 Ultram PO 50 mg Q4H PRN Administration Moderate Pain (4-6) Zinc Sulfate 220 mg 08/20/19 09:00 08/22/19 08:55 Zinc Sulfate PO 220 mg 0900 CODY Administration - Exam Eye: PERRL, anicteric sclera Heart: RRR, no murmur, no gallops, no rubs, normal peripheral pulses Respiratory: CTAB, no wheezes, no rales, no ronchi, normal chest expansion Gastrointestinal: soft, non-tender, non-distended, normal bowel sounds, no palpable masses, no hepatomegaly Extremities: 2+ LE edema (+ massive lower extremity edema, and mild erythema) Psychiatric: normal affect, normal behavior, A&O x 3 Hosp A/P (1) Cellulitis of both lower extremities Code(s): L03.115 - CELLULITIS OF RIGHT LOWER LIMB; L03.116 - CELLULITIS OF LEFT LOWER LIMB Status: Acute (2) Sepsis Code(s): A41.9 - SEPSIS, UNSPECIFIED ORGANISM Status: Acute (3) Hypertension Code(s): I10 - ESSENTIAL (PRIMARY) HYPERTENSION Status: Chronic Qualifiers: Hypertension type: essential hypertension Qualified Code(s): I10 - Essential (primary) hypertension (4) FAUSTINO (obstructive sleep apnea) Code(s): G47.33 - OBSTRUCTIVE SLEEP APNEA (ADULT) (PEDIATRIC) Status: Chronic (5) Obesity (BMI 30-39.9) Code(s): E66.9 - OBESITY, UNSPECIFIED Status: Chronic (6) Physical deconditioning Code(s): R53.81 - OTHER MALAISE Status: Chronic (7) CKD (chronic kidney disease) stage 4, GFR 15-29 ml/min Code(s): N18.4 - CHRONIC KIDNEY DISEASE, STAGE 4 (SEVERE) Status: Chronic - Plan * Cellulitis- patient has chronic cellulitis which is stable- Discussed with Dr. Cai, the area on her hips is likely from pressure from the compression device * Sepsis- likely from urine source- await urine culture results * Coagulopathy - resolved- her INR is 2.0 today- will restart coumadin at 3mg a day * CKD stage 4- slightly improved * HTN- blood pressure is stable- parameters given for lower blood pressure * Deconditioning- PT and OT have been ordered * Hypermagnesemia- continue to hold magnesium replacement
--- NOTE | 2019-08-22 15:46 | PRG ---
DATE OF SERVICE: 08/22/2019 SUBJECTIVE: This patient is stable. Does not have any major complaints. She is breathing well. No diarrhea. OBJECTIVE: VITAL SIGNS: She has been afebrile. Other vital signs are normal GENERAL: Awake, alert, and oriented. LUNGS: Clear. HEART: S1 and S2. Regular rate. ABDOMEN: Soft. Not distended. : She is incontinent. The postvoid or actually just a random bladder residue check was 85 mL as the highest reading. SKIN: The areas in the gluteal region and the legs are about the same as yesterday. LABORATORY DATA: White cell count 8.5, hemoglobin 9.7, platelets 247, 82% neutrophils. Creatinine 1.72. Microbiology with no growth at 12 hours in the urine culture. Blood cultures, no growth at 48 [address]. Abdomen and pelvis CT showed small bilateral pleural effusions, bilateral hydronephrosis, and markedly atrophic left kidney. ASSESSMENT AND DISCUSSION: Degenerative arthritis; sleep apnea; deep vein thrombosis; pulmonary embolism; hypertension; non-Hodgkin lymphoma, in remission; episodes of urinary tract infection; bilateral hydronephrosis; cellulitis in lower extremities and a prior knee replacement infection, in remission, on suppressive antimicrobial therapy, now with leukocytosis, a brief episode of fever, and some skin changes as noted previously. The skin changes are felt to be due to the compressive device used to manage her lymphedema and do not merit antimicrobial therapy. The reasons for neutrophilia and fever include the possibility of an invasive urinary tract infection or pyelonephritis. If the urine culture turns positive, then I would assume that is probably the culprit here and I would have Dr. Adams to take a second look. If they are negative and she remains stable as well as the white cell count continues to remain normal, then I would discharge off antimicrobial therapy with followup with Dr. Adams in the outpatient setting. Thromboembolism would be another consideration, although that is much less likely since she is on appropriate anticoagulation for that. Job ID: [id number]
[2019-08-22] MEDS ORDERED: Warfarin Sodium 3 MG TAB PO SCH (17:00)
[2019-08-22] MEDS: Melatonin 3 MG TAB PO SCH (20:48)
[2019-08-22] MEDS: Estradiol 0.01% Vaginal Cream 42.5 gm Tube VAG SCH (20:49)
[2019-08-22] MEDS: HYDROcodone/Acetaminophen 10/325 mg Tablet PO PRN (22:42)
[2019-08-23] MEDS: Acetaminophen 325 MG TAB PO PRN ×4 (00:13→19:52)
[2019-08-23 05:37] LABS: INR-International Normal Ratio 1.2; Prothrombin Time 15.1 SEC (12.0-14.7)
[2019-08-23 05:49] LABS: Anion Gap 13 mmol/L (10-20); BUN (Urea Nitrogen) 89 mg/dL (9.8-20.1); Calc. Creatinine Clearance 40 mL/min (70-130); Calcium 9.8 mg/dL (7.8-10.44); Carbon Dioxide 33 mmol/L (23-31); Chloride 96 mmol/L (98-107); Estimated GFR-MDRD 31; Glucose 105 mg/dL (83-110); Potassium 3.5 mmol/L (3.5-5.1); Sodium 138 mmol/L (136-145)
[2019-08-23 05:51] LABS: Band 1 % (5-11); Eosinophils 4 % (0-10); Hemoglobin 9.6 g/dL (12.0-16.0); Lymphocytes 19 % (21-51); MDiff Complete? YES; Mean Corpuscular HGB CONC 31.4 g/dL (32.0-36.0); Mean Corpuscular Hemoglobin 29.5 pg (27.0-31.0); Mean Corpuscular Volume 94.1 fL (78.0-98.0); Mean Platelet Volume 8.4 fL (7.4-10.4); Monocytes 6 % (0-10); Neutrophil 70 % (42-75); Platelet Count 263 thou/uL (130-400); Platelet Morphology Comment Appears Adequate; Red Blood Cell (RBC) Count 3.26 mill/uL (4.20-5.40); White Blood Cell (WBC) Count 6.9 thou/uL (4.8-10.8)
--- NOTE | 2019-08-23 07:55 | CON ---
DATE OF CONSULTATION: 08/21/2019 REASON FOR CONSULTATION: Fever, leukocytosis, and skin changes in gluteal region. HISTORY OF PRESENT ILLNESS: Ms. 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 In March 2019, she presented with cellulitis in the left lower extremity associated with the wound, which was treated with broad-spectrum coverage because of concern with Pseudomonas aeruginosa, which had been colonizing the area before. After that, she was converted to beta-hemolytic streptococcal prophylaxis and has been okay since. The daughter is very involved in her care and has obtained lymphedema pumps that she wears for both lower extremities and more recently, had another element of her lymphedema treatment which includes a compression device around the pelvis and gluteal region like a shorts that she has been wearing now for about a month and a half. The last day that she used this was August 18. On the , the daughter noticed this area of erythema in the gluteal region, both right and left side. It seems to have started on the right side, but it extended to the left. At same time, the patient had a temperature of 101. She was therefore brought for evaluation and admitted. On arrival, the pulse was 81, blood pressure 120/60, temperature 100.4. The exam was remarkable for a murmur in the heart sounds, chronic lymphedema changes, and open wound in the left lower leg which had an improved appearance over the course of the past few weeks, and erythema in the left and right gluteal regions, which was not tender to palpation. initial laboratory data demonstrated a white cell count 23,000 with 88% neutrophils, hemoglobin of 13.8, platelets 285. Initial creatinine was 1.87, which is a little bit higher than her baseline. The bilirubin was 0.6, AST 22, ALT 16, and alkaline phosphatase 96. The albumin was 3.7. Microbiology data includes 2 sets of blood cultures which have been negative thus far. Currently, Ms. Trinidad is awake, she is oriented. Denies headaches. No change in visual symptoms, sore throat, odynophagia, or dysphagia. A little bit of cough, but not much. No chest pain. No dyspnea. No abdominal tenderness or pain. No diarrhea. Able to void, although not sure about the status of her bladder fullness at this time, but certainly no dysuria reported. No pain in the lower extremities. 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 ALLERGIES: PENICILLIN AND LATEX. PAST SURGICAL HISTORY: Cholecystectomy, patellar tendon repair following TKR. SOCIAL HISTORY: Never smoker. Lives with daughter. FAMILY HISTORY: Noncontributory. CURRENT MEDICATIONS: 1. Tylenol. 2. Floranex. 3. Ventolin. 4. Zyloprim. 5. Vitamin C. 6. Coreg. 7. Cefepime. 8. Clindamycin. 9. Duloxetine. 10. Gabapentin. 11. Vancomycin. PHYSICAL EXAMINATION: VITAL SIGNS: T-max 98.6 since admission. Other vital signs are fairly normal. O2 sats ranged from 93 to 100 on room air. SKIN: Shows there is quite symmetric area of erythema in the gluteal regions, right and left side. The left side has some element of bruising as well and petechiae. Neither the right or the left gluteal region is tender to palpation. There is no blistering either. The frontal area does not have erythema. She has stasis changes in the lower extremities, but no clear-cut evidence of cellulitis at this point in time. She has no tenderness in the right or left leg. The wound in the left leg lateral aspect is improving quite significantly. NEUROLOGIC: She is diffusely weak but moves all extremities. She is oriented. Follows commands. Recognizes family members. Speech appears to be her usual self. LABORATORY DATA: Followup labs; white cell count is at 11.2, hemoglobin 9.9, platelets 255. Creatinine is at 1.96, magnesium 2.8. I do not see a urinalysis at this time. IMAGING STUDIES: Include an abdomen and pelvis CT from March 2019, which showed bilateral hydronephrosis, but no pathologic cause apparent. No other studies have been carried out. ASSESSMENT: 1. Non-Hodgkin lymphoma, in remission after prior treatment for many years. 2. Right total knee replacement infection, in remission, and on chronic doxycycline suppressive therapy. 3. Chronic lymphedema with erythema in the gluteal region, which most likely is due to the new lymphedema pump device for the pelvic area, which the patient has been using daily up until September 18. I do not believe the changes noticed in the skin reflect an infectious process, but most likely just a physical process associated with the compression around the gluteal region. 4. Fever with leukocytosis. DISCUSSION: In the face of the above findings, I would be concerned with an alternate process that might be contributing to the fever and leukocytosis. I would recommend checking urinalysis and perform either a CT stone protocol or an abdominal ultrasound to evaluate for hydronephrosis and urinary tract infection. I would also obtain a chest x-ray to rule out respiratory tract infection although that is less likely. A respiratory virus infection is also less likely in the absence of symptoms at this point in time. Job ID: [id number]
[2019-08-23] MEDS: DULoxetine 60 MG CAP PO SCH (08:55)
[2019-08-23] MEDS: Potassium Chloride 10 MEQ TAB PO SCH ×2 (08:55→19:53)
[2019-08-23] MEDS: Zinc Sulfate 220 MG CAP PO SCH (08:55)
[2019-08-23] MEDS: Ferrous Sulfate 325 MG TAB PO SCH ×2 (08:55→19:53)
[2019-08-23] MEDS: Docusate 100 MG CAP PO SCH ×2 (08:55→19:53)
[2019-08-23] MEDS: Multivit, Therapeutic 1 TAB PO SCH (08:55)
[2019-08-23] MEDS: Saccharomyces boulardii 250 MG CAP PO SCH (08:55)
[2019-08-23] MEDS: Gabapentin 100 MG CAP PO SCH ×2 (08:56→19:53)
[2019-08-23] MEDS: hydrALAZINE 25 MG TAB PO SCH ×3 (08:56→20:38)
[2019-08-23] MEDS: Torsemide 20 MG TAB PO SCH (08:56)
[2019-08-23] MEDS: Allopurinol 100 MG TAB PO SCH (08:56)
[2019-08-23] MEDS: Ascorbic Acid 500 mg Chewable Tablet PO SCH (08:56)
[2019-08-23] MEDS: Carvedilol 6.25 MG TAB PO SCH ×2 (08:57→20:38)
[2019-08-23] MEDS: Cyanocobalamin (Vitamin B-12) 1,000 MCG TAB PO SCH (08:57)
[2019-08-23] MEDS: traMADol HCl 50 MG TAB PO PRN ×3 (09:17→19:52)
[2019-08-23] MEDS: Lactinex Tablet PO SCH ×2 (09:19→19:53)
--- NOTE | 2019-08-23 11:36 | PRG ---
DATE OF SERVICE: 08/23/2019 SUBJECTIVE: Patient was seen and examined at bedside and overnight events noted. Patient denies any shortness of breath or chest pain or palpitation. No history of nausea or vomiting or diarrhea or fever or chills or cramps. OBJECTIVE: GENERAL: This is an obese female, in no apparent distress. VITAL SIGNS: Temperature 97. Heart rate 68. Respiratory rate 16. Blood pressure 158/80. HEENT: Atraumatic, normocephalic. Oral mucosa is moist NECK: Supple. CARDIOVASCULAR: S1, S2 heard. Rate and rhythm regular. RESPIRATORY: Clear to auscultation. GASTROINTESTINAL: Abdomen is soft. MUSCULOSKELETAL: No tenderness. No edema. DERMATOLOGIC: No skin rash. NEUROLOGIC: Alert and awake and oriented X3. No focal neurologic deficits. Moving all the extremities. PSYCHIATRIC: Mood and affect normal. LABORATORY DATA: Potassium 3.5, BUN is 89, and creatinine is 1.5. ASSESSMENT AND PLAN: 1. Acute kidney injury. Renal function continues to get better. Continue current management. 2. Edema, controlled. 3. Hypertension, stable. 4. Chronic anemia. 5. History of lymphedema. We will continue current management for now. Limit fluid and salt intake. Job ID: [id number]
[2019-08-23] MEDS: Fluticasone Propionate Nasal Spray 16 gm Bottle NASAL SCH (12:28)
[2019-08-23] MEDS: Nystatin Powder 15 GM BOT TOP SCH ×2 (12:29→20:41)
[2019-08-23] MEDS ORDERED: Warfarin Sodium 5 MG TAB PO SCH (17:00)
[2019-08-23] MEDS ORDERED: Warfarin Sodium 3 MG TAB PO SCH (17:00)
--- NOTE | 2019-08-23 17:10 | PDOC.HOSPP ---
- Subjective Encounter Date: 08/23/19 Encounter Time: 17:08 Subjective: Ms. Trinidad was seen today in follow-up of sepsis. She is feeling a little better. She does not have any new complaints. - Objective Vital Signs & Weight: Vital Signs (12 hours) Temp Pulse Resp BP BP BP Pulse Ox 08/23/19 16:21 75 147/67 H 08/23/19 16:19 75 16 147/67 H 95 08/23/19 08:57 158/80 H 08/23/19 08:56 68 158/80 H 08/23/19 08:20 100 08/23/19 07:38 98.7 F 68 16 158/80 H 100 08/23/19 05:46 98.1 F Weight Admit Weight 208 lb 9.6 oz Weight 208 lb 9.6 oz I&O: 08/22/19 08/23/19 08/24/19 06:59 06:59 06:59 Intake Total Output Total Balance Result Diagrams: 08/23/19 04:54 08/23/19 04:54 Hospitalist ROS - Medication Medications: Active Medications Generic Name Dose Route Start Last Admin Trade Name Freq PRN Reason Stop Dose Admin Acetaminophen 650 mg 08/20/19 05:35 08/23/19 14:26 Tylenol PO 650 mg Q4H PRN Administration Headache/Fever/Mild Pain (1-3) Acetaminophen 500 mg 08/20/19 14:23 08/22/19 19:49 Tylenol PO 500 mg Q4H PRN Administration with Tramadol Hydrocodone Bitart/Acetaminophen 1 tab 08/20/19 05:35 08/22/19 22:42 [place] 10/325 PO 1 tab Q4H PRN Administration Moderate Pain (4-6) Acidophilus 1 tab 08/20/19 21:00 08/23/19 09:19 Floranex PO 1 tab BID CODY Administration Allopurinol 100 mg 08/20/19 09:00 08/23/19 08:56 Zyloprim PO 100 mg 0900 CODY Administration Ascorbic Acid 1,000 mg 08/21/19 09:00 08/23/19 08:56 Vitamin C PO 1,000 mg DAILY [facility] Administration Carvedilol 12.5 mg 08/20/19 21:00 08/23/19 08:57 Coreg PO 12.5 mg BID CODY Administration Cyanocobalamin 1,000 mcg 08/21/19 09:00 08/23/19 08:57 Vitamin B-12 PO 1,000 mcg 0900 CODY Administration Docusate Sodium 100 mg 08/20/19 21:00 08/23/19 08:55 Colace PO 100 mg BID [facility] Administration Duloxetine HCl 60 mg 08/20/19 09:00 08/23/19 08:55 Cymbalta PO 60 mg 0900 CODY Administration Estradiol 2 gm 08/20/19 21:00 08/22/19 20:49 Estrace 0.01% Vaginal Cream VAG 2 gm 2100 CODY Administration Ferrous Sulfate 325 mg 08/20/19 21:00 08/23/19 08:55 Feosol PO 325 mg BID [facility] Administration Fluticasone Propionate 0 gm 08/21/19 09:00 08/23/19 12:28 Flonase Nasal [place] NASAL 1 appful DAILY [facility] Administration Gabapentin 200 mg 08/20/19 21:00 08/22/19 20:48 Neurontin PO 200 mg 2100 CODY Administration Gabapentin 100 mg 08/21/19 09:00 08/23/19 08:56 Neurontin PO 100 mg 0900 [facility]ODY Administration Hydralazine HCl 100 mg 08/20/19 15:00 08/23/19 16:21 Apresoline PO 100 mg TID [facility] Administration Melatonin 9 mg 08/20/19 21:00 08/22/19 20:48 Melatonin PO 9 mg HS [facility] Administration Multivitamins 1 tab 08/21/19 09:00 08/23/19 08:55 Theragran PO 1 tab DAILY [facility] Administration Nystatin 0 gm 08/20/19 21:00 08/23/19 12:29 Mycostatin Powder TOP 1 applic BID [facility] Administration Pantoprazole Sodium 40 mg 08/20/19 09:00 08/23/19 08:55 Protonix PO 40 mg 0900 [facility]ODY Administration Potassium Chloride 10 meq 08/20/19 21:00 08/23/19 08:55 Klor-Con 10 PO 10 meq BID [facility] Administration Saccharomyces Boulardii 250 mg 08/20/19 09:00 08/23/19 08:55 Florastor PO 250 mg DAILY [facility] Administration Torsemide 40 mg 08/21/19 09:00 08/23/19 08:56 Demadex PO 40 mg 0900 [facility]ODY Administration Tramadol HCl 50 mg 08/20/19 14:23 08/23/19 14:26 Ultram PO 50 mg Q4H PRN Administration Moderate Pain (4-6) Zinc Sulfate 220 mg 08/20/19 09:00 08/23/19 08:55 Zinc Sulfate PO 220 mg 0900 CODY Administration - Exam Eye: PERRL, anicteric sclera Heart: RRR, no murmur, no gallops, II/IV (systolic murmur) Respiratory: CTAB, no wheezes, no rales, no ronchi, normal chest expansion, no tachypnea, normal percussion Gastrointestinal: soft, non-tender, non-distended, normal bowel sounds, no palpable masses, no hepatomegaly Extremities: 2+ LE edema (+ massive lower extremity edema wound id dressed) Hosp A/P (1) Cellulitis of both lower extremities Code(s): L03.115 - CELLULITIS OF RIGHT LOWER LIMB; L03.116 - CELLULITIS OF LEFT LOWER LIMB Status: Acute (2) Sepsis Code(s): A41.9 - SEPSIS, UNSPECIFIED ORGANISM Status: Acute (3) Hypertension Code(s): I10 - ESSENTIAL (PRIMARY) HYPERTENSION Status: Chronic Qualifiers: Hypertension type: essential hypertension Qualified Code(s): I10 - Essential (primary) hypertension (4) FAUSTINO (obstructive sleep apnea) Code(s): G47.33 - OBSTRUCTIVE SLEEP APNEA (ADULT) (PEDIATRIC) Status: Chronic (5) Obesity (BMI 30-39.9) Code(s): E66.9 - OBESITY, UNSPECIFIED Status: Chronic (6) Physical deconditioning Code(s): R53.81 - OTHER MALAISE Status: Chronic (7) CKD (chronic kidney disease) stage 4, GFR 15-29 ml/min Code(s): N18.4 - CHRONIC KIDNEY DISEASE, STAGE 4 (SEVERE) Status: Chronic - Plan * Cellulitis- patient has chronic cellulitis which is stable- Discussed with Dr. Cai, the area on her hips is likely from pressure from the compression device * Sepsis- felt to be a urine source- urine culture is growing Yeast- will start Diflucan * She had evidence of Hydronephrosis on CT scan- will consult Urology * Coagulopathy - resolved- her INR is 1.2 today- will give coumadin 6 mg tonight * CKD stage 4- stable * HTN- blood pressure is stable- * Deconditioning- PT and OT have been ordered
[2019-08-23] MEDS: Fluconazole 100 MG TAB PO SCH (17:24)
[2019-08-23] MEDS: Melatonin 3 MG TAB PO SCH (20:39)
[2019-08-23] MEDS: Estradiol 0.01% Vaginal Cream 42.5 gm Tube VAG SCH (20:41)
[2019-08-23] MEDS: HYDROcodone/Acetaminophen 10/325 mg Tablet PO PRN (22:26)
[2019-08-24 06:25] LABS: #Eosinphils 0.1 thou/uL (0.0-0.7); #Lymphocytes 1.2 thou/uL (1.20-3.40); #Monocytes 0.7 thou/uL (0.11-0.59); #Neutrophils 4.8 thou/uL (1.40-6.50); %Basophils 0.4 % (0.0-1.0); %Eosinophils 2.1 % (0.0-10.0); %Lymphocytes 18.1 % (21.0-51.0); %Monocytes 9.7 % (0.0-10.0); %Neutrophils 69.8 % (42.0-75.0); Hemoglobin 9.8 g/dL (12.0-16.0); Mean Corpuscular HGB CONC 31.6 g/dL (32.0-36.0); Mean Corpuscular Hemoglobin 29.7 pg (27.0-31.0); Mean Corpuscular Volume 94.1 fL (78.0-98.0); Mean Platelet Volume 8.3 fL (7.4-10.4); Platelet Count 284 thou/uL (130-400); RBC Distribution Width 15.9 % (11.5-14.5); Red Blood Cell (RBC) Count 3.29 mill/uL (4.20-5.40); White Blood Cell (WBC) Count 6.9 thou/uL (4.8-10.8)
[2019-08-24 06:31] LABS: INR-International Normal Ratio 1.1; Prothrombin Time 14.1 SEC (12.0-14.7)
[2019-08-24 06:56] LABS: Anion Gap 13 mmol/L (10-20); BUN (Urea Nitrogen) 85 mg/dL (9.8-20.1); Calc. Creatinine Clearance 41 mL/min (70-130); Calcium 9.9 mg/dL (7.8-10.44); Carbon Dioxide 33 mmol/L (23-31); Chloride 98 mmol/L (98-107); Estimated GFR-MDRD 32; Glucose 106 mg/dL (83-110); Potassium 3.9 mmol/L (3.5-5.1); Sodium 140 mmol/L (136-145)
[2019-08-24 07:37] VITALS: TEMP 98.6
[2019-08-24] MEDS: Cyanocobalamin (Vitamin B-12) 1,000 MCG TAB PO SCH (08:35)
[2019-08-24] MEDS: Docusate 100 MG CAP PO SCH (08:35)
[2019-08-24] MEDS: Ascorbic Acid 500 mg Chewable Tablet PO SCH (08:35)
[2019-08-24] MEDS: Allopurinol 100 MG TAB PO SCH (08:35)
[2019-08-24] MEDS: Ferrous Sulfate 325 MG TAB PO SCH (08:36)
[2019-08-24] MEDS: Lactinex Tablet PO SCH (08:36)
[2019-08-24] MEDS: Fluticasone Propionate Nasal Spray 16 gm Bottle NASAL SCH (08:36)
[2019-08-24] MEDS: Saccharomyces boulardii 250 MG CAP PO SCH (08:36)
[2019-08-24] MEDS: Gabapentin 100 MG CAP PO SCH (08:36)
[2019-08-24] MEDS: Multivit, Therapeutic 1 TAB PO SCH (08:36)
[2019-08-24] MEDS: Zinc Sulfate 220 MG CAP PO SCH (08:37)
[2019-08-24] MEDS: Potassium Chloride 10 MEQ TAB PO SCH (08:37)
[2019-08-24] MEDS: traMADol HCl 50 MG TAB PO PRN ×2 (08:37→14:12)
[2019-08-24] MEDS: Torsemide 20 MG TAB PO SCH (08:37)
[2019-08-24] MEDS: DULoxetine 60 MG CAP PO SCH (08:47)
[2019-08-24] MEDS: Acetaminophen 500 MG TAB PO PRN (08:47)
[2019-08-24] MEDS: hydrALAZINE 25 MG TAB PO SCH ×2 (10:30→17:09)
[2019-08-24] MEDS: Carvedilol 6.25 MG TAB PO SCH (10:30)
--- NOTE | 2019-08-24 12:50 | PRG ---
DATE OF SERVICE: 08/24/2019 SUBJECTIVE: Patient was seen and examined at bedside and overnight events noted. Patient denies any shortness of breath or chest pain or palpitation. No history of nausea or vomiting or diarrhea or fever or chills or cramps. OBJECTIVE: GENERAL: This is an obese female, in no acute distress. VITAL SIGNS: Temperature 98.6. Heart rate 71. Respiratory rate 18. Blood pressure 150/84. HEENT: Atraumatic, normocephalic. Oral mucosa is moist. NECK: Supple. CARDIOVASCULAR: S1, S2 heard. Rate and rhythm regular. RESPIRATORY: Clear to auscultation. GASTROINTESTINAL: Abdomen is soft. MUSCULOSKELETAL: No tenderness. No edema. DERMATOLOGIC: No skin rash. NEUROLOGIC: Alert and awake and oriented X3. No focal neurologic deficits. Moving all the extremities. PSYCHIATRIC: Mood and affect normal. LABORATORY DATA: Potassium 3.9, BUN 85, and creatinine 1.5. ASSESSMENT AND PLAN: 1. Acute kidney injury on chronic kidney disease, stable. 2. Edema, controlled. 3. Lymphedema. 4. Hypertension. 5. Anemia. Continue current management. Monitor labs. Job ID: [id number]
[2019-08-24] MEDS: Acetaminophen 325 MG TAB PO PRN (14:14)
--- NOTE | 2019-08-24 16:18 | PDOC.HOSPP ---
- Subjective Encounter Date: 08/24/19 Encounter Time: 16:16 Subjective: Ms. Trinidad was seen today in follow-up of UTi and sepsis. She does not have any new complaints. - Objective Vital Signs & Weight: Vital Signs (12 hours) Temp Pulse Resp BP BP Pulse Ox 08/24/19 10:30 71 150/84 H 08/24/19 08:00 93 L 08/24/19 07:36 98.6 F 71 18 150/84 H 93 L Weight Admit Weight 208 lb 9.6 oz Weight 208 lb 9.6 oz I&O: 08/23/19 08/24/19 08/25/19 06:59 06:59 06:59 Intake Total 735 Balance 735 Result Diagrams: 08/24/19 06:12 08/24/19 06:12 Hospitalist ROS - Medication Medications: Active Medications Generic Name Dose Route Start Last Admin Trade Name Freq PRN Reason Stop Dose Admin Acetaminophen 650 mg 08/20/19 05:35 08/24/19 14:14 Tylenol PO 650 mg Q4H PRN Administration Headache/Fever/Mild Pain (1-3) Acetaminophen 500 mg 08/20/19 14:23 08/24/19 08:47 Tylenol PO 500 mg Q4H PRN Administration with Tramadol Hydrocodone Bitart/Acetaminophen 1 tab 08/20/19 05:35 08/23/19 22:26 [place] 10/325 PO 1 tab Q4H PRN Administration Moderate Pain (4-6) Acidophilus 1 tab 08/20/19 21:00 08/24/19 08:36 Floranex PO 1 tab BID CODY Administration Allopurinol 100 mg 08/20/19 09:00 08/24/19 08:35 Zyloprim PO 100 mg 0900 CODY Administration Ascorbic Acid 1,000 mg 08/21/19 09:00 08/24/19 08:35 Vitamin C PO 1,000 mg DAILY CODY Administration Carvedilol 12.5 mg 08/20/19 21:00 08/24/19 10:30 Coreg PO 12.5 mg BID CODY Administration Cyanocobalamin 1,000 mcg 08/21/19 09:00 08/24/19 08:35 Vitamin B-12 PO 1,000 mcg 0900 CODY Administration Docusate Sodium 100 mg 08/20/19 21:00 08/24/19 08:35 Colace PO 100 mg BID CODY Administration Duloxetine HCl 60 mg 08/20/19 09:00 08/24/19 08:47 Cymbalta PO 60 mg 0900 CODY Administration Estradiol 2 gm 08/20/19 21:00 08/23/19 20:41 Estrace 0.01% Vaginal Cream VAG 2 gm 2100 CODY Administration Ferrous Sulfate 325 mg 08/20/19 21:00 08/24/19 08:36 Feosol PO 325 mg BID CODY Administration Fluconazole 100 mg 08/23/19 18:00 08/23/19 17:24 Diflucan PO 100 mg 1800 CODY Administration Fluticasone Propionate 0 gm 08/21/19 09:00 08/24/19 08:36 Flonase Nasal [place] NASAL 1 appful DAILY CODY Administration Gabapentin 200 mg 08/20/19 21:00 08/23/19 19:53 Neurontin PO 200 mg 2100 CODY Administration Gabapentin 100 mg 08/21/19 09:00 08/24/19 08:36 Neurontin PO 100 mg 0900 CODY Administration Hydralazine HCl 100 mg 08/20/19 15:00 08/24/19 10:30 Apresoline PO 100 mg TID CODY Administration Melatonin 9 mg 08/20/19 21:00 08/23/19 20:39 Melatonin PO 9 mg HS CODY Administration Multivitamins 1 tab 08/21/19 09:00 08/24/19 08:36 Theragran PO 1 tab DAILY CODY Administration Nystatin 0 gm 08/20/19 21:00 08/23/19 20:41 Mycostatin Powder TOP 1 applic BID CODY Administration Pantoprazole Sodium 40 mg 08/20/19 09:00 08/24/19 08:37 Protonix PO 40 mg 0900 CODY Administration Potassium Chloride 10 meq 08/20/19 21:00 08/24/19 08:37 Klor-Con 10 PO 10 meq BID CODY Administration Saccharomyces Boulardii 250 mg 08/20/19 09:00 08/24/19 08:36 Florastor PO 250 mg DAILY CODY Administration Torsemide 40 mg 08/21/19 09:00 08/24/19 08:37 Demadex PO 40 mg 0900 CODY Administration Tramadol HCl 50 mg 08/20/19 14:23 08/24/19 14:12 Ultram PO 50 mg Q4H PRN Administration Moderate Pain (4-6) Zinc Sulfate 220 mg 08/20/19 09:00 08/24/19 08:37 Zinc Sulfate PO 220 mg 0900 CODY Administration - Exam Eye: PERRL Heart: RRR, no murmur, no gallops, no rubs Respiratory: CTAB, no wheezes, no rales, no ronchi, normal chest expansion Gastrointestinal: soft, non-tender, non-distended, normal bowel sounds, no palpable masses, no hepatomegaly Extremities: 1+ LE edema Hosp A/P (1) Cellulitis of both lower extremities Code(s): L03.115 - CELLULITIS OF RIGHT LOWER LIMB; L03.116 - CELLULITIS OF LEFT LOWER LIMB Status: Acute (2) Sepsis Code(s): A41.9 - SEPSIS, UNSPECIFIED ORGANISM Status: Acute (3) Hypertension Code(s): I10 - ESSENTIAL (PRIMARY) HYPERTENSION Status: Chronic Qualifiers: Hypertension type: essential hypertension Qualified Code(s): I10 - Essential (primary) hypertension (4) FAUSTINO (obstructive sleep apnea) Code(s): G47.33 - OBSTRUCTIVE SLEEP APNEA (ADULT) (PEDIATRIC) Status: Chronic (5) Obesity (BMI 30-39.9) Code(s): E66.9 - OBESITY, UNSPECIFIED Status: Chronic (6) Physical deconditioning Code(s): R53.81 - OTHER MALAISE Status: Chronic (7) CKD (chronic kidney disease) stage 4, GFR 15-29 ml/min Code(s): N18.4 - CHRONIC KIDNEY DISEASE, STAGE 4 (SEVERE) Status: Chronic - Plan * UTI- she is clinically stable * Discussed with ID * She is stable for discharge home
--- NOTE | 2019-08-24 16:28 | PRG ---
DATE OF SERVICE: 08/24/2019 SUBJECTIVE: She is stable, had a low-grade temperature elevation, but otherwise no diarrhea. Skin in the gluteal area is improving. No vomiting. OBJECTIVE: VITAL SIGNS: T-max 100.2 yesterday. Now, she has been afebrile. She has been afebrile most of the time here in the hospital. Blood pressure 150/84. GENERAL: Awake, alert, and oriented. LUNGS: Clear. HEART: S1 and S2, regular rate. BACK: Gluteal skin area with less erythema. LABORATORY DATA: White cell count 6.9, hemoglobin 9.8, and platelets 284. Urinalysis 11 to 20 wbc's. Urine culture with yeast, species yet to be identified, susceptibility tested. Blood culture, no growth. ASSESSMENT AND DISCUSSION: Degenerative arthritis; sleep apnea; deep vein thrombosis; pulmonary embolism; hypertension; non-Hodgkin lymphoma, in remission; episodes of urinary tract infection and bilateral hydronephrosis; cellulitis of the lower extremities; prior knee replacement infection, in remission, on suppressive antimicrobial therapy; and now with skin changes which were felt to be due to bruising from the compressive garments that she was wearing for management of lymphedema. The reason for the neutrophilia is probably urinary tract infection again. We will switch her to oral Diflucan for 3 weeks and follow up with Dr. Adams. Quit wearing the garments around the pelvis and just wear the leg and thigh ones. Job ID: [id number]
[2019-08-24] MEDS ORDERED: Warfarin Sodium 10 MG TAB PO SCH (17:00)
[2019-08-24] MEDS ORDERED: Warfarin Sodium 3 MG TAB PO SCH (17:00)
[2019-08-24] MEDS ORDERED: Warfarin Sodium 7.5 MG TAB PO SCH (17:00)
[2019-08-24] MEDS: Fluconazole 100 MG TAB PO SCH (17:10)
[2019-08-24] MEDS: Nystatin Powder 15 GM BOT TOP SCH (17:11)
[2019-08-24 17:12] VITALS: BP 185/98
--- NOTE | 2019-08-24 21:23 | DIS ---
DATE OF ADMISSION: 08/20/2019 DATE OF DISCHARGE: 08/24/2019 DISCHARGE DIAGNOSES: 1. Urinary tract infection. 2. Sepsis. 3. Chronic cellulitis. 4. History of deep venous thrombosis and pulmonary embolism, on Coumadin. 5. Non-Hodgkin's lymphoma. 6. Chronic kidney disease, stage 3. 7. Hypertension. 8. Lymphedema. DISCHARGE MEDICATIONS: Include: 1. Diflucan 100 mg daily. 2. Zinc sulfate 220 mg daily. 3. Coumadin 6 mg daily. 4. Ultram 50 mg daily. 5. Torsemide 40 mg twice daily. 6. Potassium chloride 10 mEq twice daily. 7. Protonix 40 mg daily. 8. Nystatin powder as needed. 9. Multivitamin once daily. 10. Melatonin 10 mg p.o. at bedtime. 11. Magnesium oxide 400 mg twice daily. 12. Floranex 1 tablet twice daily. 13. Hydrocodone 1 tablet q.4 hours as needed. 14. Hydralazine 100 mg t.i.d. 15. Gabapentin 200 mg in the a.m., 100 in the evening. 16. Flonase nasal spray daily. 17. Iron sulfate 325 mg twice daily. 18. Estradiol 2 g vaginally daily. 19. Duloxetine 60 mg q.p.m. 20. Colace 100 mg twice daily. 21. Vitamin B12 1000 mcg p.o. daily. 22. Clonidine 0.1 p.r.n. 23. Keflex 500 mg twice daily. 24. Tessalon Perles 100 mg t.i.d. 25. Ascorbic acid 100 mg daily. 26. Allopurinol 100 mg daily. 27. Tylenol as needed. PROCEDURES DONE DURING ADMISSION: The patient had a CT scan of the abdomen and pelvis in which the main findings were small bilateral pleural effusions within the left lower lobe, atelectasis versus early infiltrates, stable bilateral hydronephrosis with marked atrophic left kidney and sigmoid diverticulosis. HOSPITAL COURSE: Ms. Trinidad is a pleasant 83-year-old female, who was admitted to the hospital initially for concerns of cellulitis. She has a history of chronic cellulitis in her lower extremities, but this time she noticed some redness around her hips. It was initially thought this could be a cellulitis, but later felt that this was more likely due to a bruise due to her compression stockings. The fever and sepsis were more likely due to a urine source. Urine culture grew yeast. She was placed on Diflucan for this. Also during her hospitalization, her INR jumped up to approximately 4.8. Coumadin was held and she was given vitamin K. There was no signs of any bleeding and at the time of discharge her INR was approximately 1 and in the process of reanticoagulating her. This is for long-term treatment for DVT. Therefore, she can be discharged home, continue the Coumadin in the outpatient setting and she will be checking her PT/INR daily. She has a machine to do this at home and call the results to her primary care doctor. She will be checking it daily while she is on the Diflucan. The patient at the time of discharge was much improved, much more awake and alert and back to her baseline. Job ID: [id number]
== END 2019-08-24 18:16 | disposition home or self-care (01) | DRG 872 ==
LOC: ERS 01:39 → T4-A 05:21
PROVIDERS: ADMIT Internal Medicine; ATTEND Internal Medicine
DX: A41.9 Sepsis, unspecified organism (principal); I50.32 Chronic diastolic (congestive) heart failure; I13.0 Hypertensive heart and chronic kidney disease with heart failure and stage 1 through stage 4 chronic kidney disease, or unspecified chronic kidney disease; E87.2 Acidosis; L03.115 Cellulitis of right lower limb; L03.116 Cellulitis of left lower limb; N18.4 Chronic kidney disease, stage 4 (severe); C85.90 Non-Hodgkin lymphoma, unspecified, unspecified site; N17.9 Acute kidney failure, unspecified; N13.6 Pyonephrosis; I89.0 Lymphedema, not elsewhere classified; G47.33 Obstructive sleep apnea (adult) (pediatric); E83.41 Hypermagnesemia; R53.81 Other malaise; D64.9 Anemia, unspecified; Z68.35 Body mass index [BMI] 35.0-35.9, adult; Z90.49 Acquired absence of other specified parts of digestive tract; Z88.0 Allergy status to penicillin; Z88.8 Allergy status to other drugs, medicaments and biological substances; Z79.01 Long term (current) use of anticoagulants; Z79.899 Other long term (current) drug therapy; Z86.711 Personal history of pulmonary embolism; Z86.718 Personal history of other venous thrombosis and embolism; R79.1 Abnormal coagulation profile; T45.515A Adverse effect of anticoagulants, initial encounter; E66.9 Obesity, unspecified
CPT/HCPCS: 36415; 36416; 74176; 80048; 80053; 80202; 81001; 83605; 83735; 84145; 85007; 85025; 85027; 85610; 87040; 87086; 94760; 96365; 96374; J0692; J3370; J3430; J3490

== ENCOUNTER 2019-09-01 20:52 | Emergency (ER) | payer MEDICARE ==
[2019-09-01 21:57] LABS: #Eosinphils 0.1 thou/uL (0.0-0.7); #Lymphocytes 1.6 thou/uL (1.20-3.40); #Monocytes 0.7 thou/uL (0.11-0.59); #Neutrophils 8.4 thou/uL (1.40-6.50); %Basophils 0.2 % (0.0-1.0); %Eosinophils 1.2 % (0.0-10.0); %Monocytes 6.8 % (0.0-10.0); %Neutrophils 76.8 % (42.0-75.0); Hemoglobin 12.1 g/dL (12.0-16.0); Mean Corpuscular HGB CONC 32.1 g/dL (32.0-36.0); Mean Corpuscular Hemoglobin 30.3 pg (27.0-31.0); Mean Corpuscular Volume 94.3 fL (78.0-98.0); Mean Platelet Volume 8.1 fL (7.4-10.4); Platelet Count 466 thou/uL (130-400); RBC Distribution Width 16.7 % (11.5-14.5); White Blood Cell (WBC) Count 10.9 thou/uL (4.8-10.8)
[2019-09-01 22:02] LABS: INR-International Normal Ratio 3.9; Prothrombin Time 38.1 SEC (12.0-14.7)
[2019-09-01 22:21] LABS: Anion Gap 17 mmol/L (10-20); BUN (Urea Nitrogen) 96 mg/dL (9.8-20.1); Calc. Creatinine Clearance 0 mL/min (70-130); Calcium 10.4 mg/dL (7.8-10.44); Carbon Dioxide 32 mmol/L (23-31); Chloride 97 mmol/L (98-107); Estimated GFR-MDRD 30; Glucose 134 mg/dL (83-110); Potassium 3.8 mmol/L (3.5-5.1); Sodium 142 mmol/L (136-145)
== END 2019-09-01 22:29 | disposition home or self-care (01) ==
LOC: ERS 20:52
DX: R79.1 Abnormal coagulation profile (principal); I10 Essential (primary) hypertension; M10.9 Gout, unspecified; J45.909 Unspecified asthma, uncomplicated; G47.30 Sleep apnea, unspecified; M17.0 Bilateral primary osteoarthritis of knee; M16.0 Bilateral primary osteoarthritis of hip; Z86.711 Personal history of pulmonary embolism; Z86.718 Personal history of other venous thrombosis and embolism; Z85.72 Personal history of non-Hodgkin lymphomas; Z79.899 Other long term (current) drug therapy; Z79.01 Long term (current) use of anticoagulants; Z79.51 Long term (current) use of inhaled steroids
CPT/HCPCS: 36415; 80048; 85025; 85610; 85730; A4218

== ENCOUNTER 2019-09-22 14:00 | Outpatient (CLI) | payer MEDICARE ==
[2019-09-22] MEDS ORDERED: Sodium Chloride 0.9% 15 ML NEB ONE (17:11)
--- NOTE | 2019-09-22 17:16 | PRG ---
DATE OF SERVICE: 09/22/2019 HISTORY: Ms. Dodie Trinidad is a very pleasant 83-year-old, accompanied by her daughter, who presents to the wound center for evaluation of a large wound of the left lateral lower leg subsequent to incision and drainage of a left leg hematoma on 06/06/[address] Robinson Baez. Since the patient's last visit, Ms. Trinidad has been receiving dressing changes of Santyl, Promogran, and Aquacel three times per week after cleansing and irrigation with the assistance of home health. The patient has also been utilizing her lymphedema wraps over the left foot and lower leg in conjunction with the preceding dressing changes. The patient continues to take p.o. antibiotics as per Infectious Diseases. Today, the patient's daughter reports the presence of copious green drainage associated with the patient's left lateral lower leg ulceration. She also reports that the ulceration has increased in its dimensions. The patient denies any fever or chills. PHYSICAL EXAMINATION: VITAL SIGNS: Temperature 98.4, pulse 73, respirations 17, and blood pressure 142/72. EXTREMITIES: The wound of the left lateral lower leg measures approximately 9.5 x 10.0 cm. The dimensions of the wound at the time of the patient's visit on 09/01/2019 were approximately 7.5 x 4.5 cm. Granulation tissue is present within the wound margins. Copious green serosanguineous drainage with a fruity odor is associated with the wound. No erythema of the skin surrounding the wound is present. No maceration of the skin of the periwound is noted. ASSESSMENT AND PLAN: 1. Chronic venous hypertension with ulceration, dressing changes of Santyl, gauze, ABDs, Webril, and Armen bandages will be initiated today. The patient will continue to utilize her short stretch bandages at the time of dressing changes. In addition, Drawtex will be utilized as needed at the time of dressing changes. I have discussed the treatment plan with Dr. Cai and the patient has been given a prescription for ciprofloxacin 202 100 ciprofloxacin 250 mg #21 p.o. b.i.d. x10 days. The patient's Keflex has been placed on hold while she is taking ciprofloxacin. The patient has also been given a prescription for daily INR measurements a sample of the drainage associated with the left lateral lower leg wound was sent for aerobic and anaerobic cultures. I will see Ms. Trinidad again in 1 week. The patient is to continue doxycycline as per Infectious Diseases. In addition, the patient has been referred to Dr. Karen Wilder. The patient will be seen in consultation by Dr. Wilder later this month. 2. Osteoarthritis. 3. History of non-Hodgkin lymphoma, status post chemotherapy with bleomycin and radiation therapy in 1992. 4. History of pulmonary embolism. 5. Chronic lymphedema. 6. Hypertension. 7. Obstructive sleep apnea. 8. History of deep venous thrombosis. 9. Left atrophic kidney. 10. Chronic kidney disease. 11. Right hydronephrosis. 12. Congestive heart failure. 13. Anemia. Job ID: [id number]
== END 2019-09-22 14:01 | disposition home or self-care (01) ==
LOC: WCC 14:00
PROVIDERS: ATTEND Family Medicine
DX: I87.312 Chronic venous hypertension (idiopathic) with ulcer of left lower extremity (principal); L97.929 Non-pressure chronic ulcer of unspecified part of left lower leg with unspecified severity; I13.0 Hypertensive heart and chronic kidney disease with heart failure and stage 1 through stage 4 chronic kidney disease, or unspecified chronic kidney disease; I50.9 Heart failure, unspecified; N18.9 Chronic kidney disease, unspecified; D63.1 Anemia in chronic kidney disease; M19.90 Unspecified osteoarthritis, unspecified site; I89.0 Lymphedema, not elsewhere classified; G47.33 Obstructive sleep apnea (adult) (pediatric); N26.1 Atrophy of kidney (terminal); N13.30 Unspecified hydronephrosis; Z86.711 Personal history of pulmonary embolism; Z86.718 Personal history of other venous thrombosis and embolism; Z85.72 Personal history of non-Hodgkin lymphomas; Z92.3 Personal history of irradiation
CPT/HCPCS: 87070; 87077; 87186; 87205; A4218

== ENCOUNTER 2019-09-30 15:51 | Outpatient (CLI) | payer MEDICARE ==
--- NOTE | 2019-09-30 16:04 | PRG ---
DATE OF SERVICE: 09/30/2019 HISTORY: Ms. Dodie Trinidad is a very pleasant 83-year-old, accompanied by her daughter, who presents to the Wound Center for evaluation of a large wound of the left lateral lower leg subsequent to incision and drainage of the left leg hematoma on 06/06/[address] Robinson Baez. Since the patient's last visit, Ms. Trinidad has been receiving dressing changes of Santyl on a daily basis after cleansing and irrigation with the assistance of Home Health. The patient has also been utilizing her lymphedema wraps over the left foot and lower leg in conjunction with the preceding dressing changes. The patient has completed the course of ciprofloxacin as previously prescribed. Today, the patient's daughter reports a marked improvement in the appearance of the wound. The patient has no complaints today. She denies any fever or chills. PHYSICAL EXAMINATION: VITAL SIGNS: Temperature 98.8, pulse 70, respirations 18, and blood pressure 176/84. EXTREMITIES: The wound of the left lateral lower leg measures approximately 6.2 x 4.5 cm. The dimensions of the wound at the time of the patient's last visit were approximately 9.5 x 10.0 cm. Granulation tissue is present within the wound margins. No purulent drainage is associated with the wound. No erythema of the skin surrounding the wound is present. No maceration of the skin of the periwound is noted. ASSESSMENT AND PLAN: 1. Chronic venous hypertension with ulceration. Dressing changes of Santyl, Drytex, ABDs, Kerlix, Webril, and short stretch bandages will be continued on a daily basis after cleansing and irrigation with the assistance of Home Health. As stated above, the patient has completed the course of ciprofloxacin as previously prescribed. I will see Ms. Trinidad again in 1 week. The patient is to continue doxycycline and Keflex as per Infectious Diseases. The patient and her daughter understand and are in agreement with the preceding treatment plan. They state that Ms. Trinidad will return to clinic in 1 week. Arrangements have been made for the patient to be seen by Dr. Karen Wilder in October in the event that the wound has not healed by then. 2. Osteoarthritis. 3. History of non-Hodgkin's lymphoma, status post chemotherapy with bleomycin and radiation therapy in 1992. 4. History of pulmonary embolism. 5. Chronic lymphedema. 6. Hypertension. 7. Obstructive sleep apnea. 8. History of deep venous thrombosis. 9. Left atrophic kidney. 10. Chronic kidney disease. 11. Right hydronephrosis. 12. Congestive heart failure. 13. Anemia. Job ID: [id number]
== END 2019-09-30 15:52 | disposition home or self-care (01) ==
LOC: WCC 15:51
PROVIDERS: ATTEND Family Medicine
DX: I87.312 Chronic venous hypertension (idiopathic) with ulcer of left lower extremity (principal); L97.829 Non-pressure chronic ulcer of other part of left lower leg with unspecified severity; M19.90 Unspecified osteoarthritis, unspecified site; I89.0 Lymphedema, not elsewhere classified; G47.33 Obstructive sleep apnea (adult) (pediatric); I13.0 Hypertensive heart and chronic kidney disease with heart failure and stage 1 through stage 4 chronic kidney disease, or unspecified chronic kidney disease; N18.9 Chronic kidney disease, unspecified; I50.9 Heart failure, unspecified; D63.1 Anemia in chronic kidney disease; N13.30 Unspecified hydronephrosis; Z86.711 Personal history of pulmonary embolism; Z85.72 Personal history of non-Hodgkin lymphomas; Z86.718 Personal history of other venous thrombosis and embolism
CPT/HCPCS: A4218

== ENCOUNTER 2019-10-06 14:39 | Outpatient (CLI) | payer MEDICARE ==
--- NOTE | 2019-10-06 15:26 | PRG ---
DATE OF SERVICE: 10/06/2019 HISTORY: Ms. Dodie Trinidad is a very pleasant 84-year-old, accompanied by her daughter, who presents to the Wound Center for evaluation of a large wound of the left lateral lower leg subsequent to incision and drainage of a left leg hematoma on 06/06/2019, by Dr. Robinson Baez. Since the patient's last visit, Ms. Trinidad has been receiving dressing changes of Santyl on a daily basis after cleansing and irrigation with the assistance of Home Health. The patient has also been utilizing her lymphedema wraps over the left foot and lower leg in conjunction with the preceding dressing changes. Again today, the patient's daughter reports an improvement in the appearance of the wound. The patient has no complaints today. She denies any fever or chills. PHYSICAL EXAMINATION: VITAL SIGNS: Temperature 97.9, pulse 72, respirations 19, blood pressure 173/74. EXTREMITIES: The wound of the left lateral lower leg measures approximately 4.2 x 6.0 cm. The dimensions of the wound at the time of the patient's last visit were approximately 6.2 x 4.5 cm. Granulation tissue is present within the wound margins. No purulent drainage is associated with the wound. No erythema of the skin surrounding the wound is present. No maceration of the skin of the periwound is noted. ASSESSMENT AND PLAN: 1. Chronic venous hypertension with ulceration. Dressing changes of Santyl, Drytex, ABDs, Kerlix, Webril, and short stretch bandages will be continued on a daily basis after cleansing and irrigation with the assistance of Home Health. The patient is to continue doxycycline and Keflex as per Infectious Diseases. The patient and her daughter understand and are in agreement with the preceding treatment plan. Arrangements have been made for the patient to be seen by Dr. Karen Wilder in October in the event that the wound has not healed by then. 2. Osteoarthritis. 3. History of non-Hodgkin lymphoma, status post chemotherapy with bleomycin and radiation therapy in 1992. 4. History of pulmonary embolism. 5. Chronic lymphedema. 6. Hypertension. 7. Obstructive sleep apnea. 8. History of deep venous thrombosis. 9. Left atrophic kidney. 10. Chronic kidney disease. 11. Right hydronephrosis. 12. Congestive heart failure. 13. Anemia. Job ID: [id number]
[2019-10-06] MEDS ORDERED: Sodium Chloride 0.9% 15 ML NEB ONE (17:06)
== END 2019-10-06 14:40 | disposition home or self-care (01) ==
LOC: WCC 14:39
PROVIDERS: ATTEND Family Medicine
DX: I87.312 Chronic venous hypertension (idiopathic) with ulcer of left lower extremity (principal); L97.829 Non-pressure chronic ulcer of other part of left lower leg with unspecified severity; M19.90 Unspecified osteoarthritis, unspecified site; G47.33 Obstructive sleep apnea (adult) (pediatric); N26.1 Atrophy of kidney (terminal); I89.0 Lymphedema, not elsewhere classified; N13.30 Unspecified hydronephrosis; I13.0 Hypertensive heart and chronic kidney disease with heart failure and stage 1 through stage 4 chronic kidney disease, or unspecified chronic kidney disease; N18.9 Chronic kidney disease, unspecified; I50.9 Heart failure, unspecified; D63.1 Anemia in chronic kidney disease; Z86.711 Personal history of pulmonary embolism; Z85.72 Personal history of non-Hodgkin lymphomas; Z86.718 Personal history of other venous thrombosis and embolism
CPT/HCPCS: A4218

== ENCOUNTER 2020-03-17 15:38 | Inpatient (IN) | payer MEDICARE ==
[2020-03-17] MEDS ORDERED: Furosemide 40 MG/4 ML VIAL ONE (17:32)
[2020-03-17] MEDS ORDERED: Nitroglycerin 2% Ointment 1 INCH/1 GM Packet ONE (17:32)
[2020-03-17 17:51] LABS: #Eosinphils 0.1 thou/uL (0.0-0.7); #Lymphocytes 0.7 thou/uL (1.20-3.40); #Monocytes 0.6 thou/uL (0.11-0.59); #Neutrophils 6.6 thou/uL (1.40-6.50); %Basophils 0.1 % (0.0-1.0); %Eosinophils 0.9 % (0.0-10.0); %Monocytes 7.8 % (0.0-10.0); %Neutrophils 82.2 % (42.0-75.0); Hemoglobin 13.5 g/dL (12.0-16.0); Mean Corpuscular Hemoglobin 30.8 pg (27.0-31.0); Mean Corpuscular Volume 99.4 fL (78.0-98.0); Platelet Count 326 thou/uL (130-400); Red Blood Cell (RBC) Count 4.38 mill/uL (4.20-5.40)
[2020-03-17] MEDS ORDERED: HYDROcodone/Acetaminophen 5/325 mg Tablet ONE (18:10)
[2020-03-17 18:13] LABS: ALT (SGPT) 15 U/L (8-55); AST (SGOT) 21 U/L (5-34); Albumin 3.7 g/dL (3.4-4.8); Alkaline Phosphatase 99 U/L (40-110); Anion Gap 17 mmol/L (10-20); BUN (Urea Nitrogen) 93 mg/dL (9.8-20.1); Bilirubin, Total 0.4 mg/dL (0.2-1.2); Calc. Creatinine Clearance 0 mL/min (70-130); Calcium 10.3 mg/dL (7.8-10.44); Carbon Dioxide 31 mmol/L (23-31); Chloride 95 mmol/L (98-107); Estimated GFR-MDRD 29; Globulin 3.4 g/dL (2.4-3.5); Glucose 121 mg/dL (83-110); Lipase 19 U/L (8-78); Potassium 4.5 mmol/L (3.5-5.1); Protein, Total 7.1 g/dL (6.0-8.3); Sodium 138 mmol/L (136-145)
--- NOTE | 2020-03-17 18:31 | RAD ---
PORTABLE CHEST ONE VIEW: 03/17/20 at 5:31 p.m. HISTORY: Increased shortness of breath, abdominal and leg swelling. COMPARISON: 08/30/18. FINDINGS/IMPRESSION: The heart is enlarged. No lobar consolidation, pneumothoraces, or large effusions are seen. The patie nt is rotated. There is mild prominence of pulmonary vascularity. POS: [facility]
[2020-03-17 18:35] LABS: CKMB 2.4 ng/mL (0-6.6)
[2020-03-18 00:16] LABS: Troponin I 0.108 ng/mL (< 0.028)
[2020-03-18] MEDS: HYDROcodone/Acetaminophen 10/325 mg Tablet PO PRN ×2 (00:42→21:45)
[2020-03-18] MEDS: cloNIDine 0.1 MG TAB PO PRN ×2 (00:42→11:48)
--- NOTE | 2020-03-18 01:33 | HP ---
CHIEF COMPLAINT: Shortness of breath. HISTORY OF PRESENT ILLNESS: Ms. Trinidad is an 84-year-old female with multiple medical problems including congestive heart failure, diastolic; chronic lymphedema; non-Hodgkin's lymphoma; chronic kidney disease; dementia; deep venous thrombosis, on anticoagulant, among others, was sent to the emergency room by her grinder tender, Dr. Alejo, for increased shortness of breath and increased abdominal and leg swelling. Also as per patient's daughter, the patient has been orthopneic. The patient gained more than 10 pounds, maybe from fluid retention. Workup in the emergency room, the patient had an elevated BNP of 1527. Troponin is detectable at 0.08. BUN is 93, creatinine 1.7. Chest x-ray shows mild pulmonary vascular congestion. In the emergency room, the patient was given IV Lasix. The patient is being admitted to hospital for further management. PAST MEDICAL HISTORY: Congestive heart failure, gout, non-Hodgkin's lymphoma, chronic kidney disease, hypertension, chronic lymphedema, deep venous thrombosis, dementia. PAST SURGICAL HISTORY: 1. Cholecystectomy. 2. Right knee surgery. 3. Cataract. PAST PSYCHIATRIC HISTORY: Anxiety. SOCIAL HISTORY: No known history of smoking, alcohol use, or drug use. FAMILY HISTORY: Reviewed and noncontributory. HOME MEDICATIONS: Please see home medication reconciliation form for updated medications. ALLERGIES: ALLERGIC TO ADHESIVE TAPE, BACTRIM, MACROBID, PENICILLINS. REVIEW OF SYSTEMS: Unable to obtain due to patient's underlying medical condition. PHYSICAL EXAMINATION: GENERAL: The patient is awake, alert, orthopneic. VITAL SIGNS: Blood pressure 160/77, pulse is 77, respiratory rate is 16, temperature 97.8, pulse oximetry 92% on room air. HEAD AND NECK: Normocephalic, atraumatic. NECK: Supple. CHEST: Decreased air entry bilaterally. HEART: S1, S2. Regular. ABDOMEN: Obese, soft. Bowel sounds present. NEUROLOGIC: Awake, alert, moving extremities. PSYCHIATRIC: Unable to assess. EXTREMITIES: Lymphedema/swelling of both legs. GENITOURINARY: No suprapubic tenderness. No flank tenderness. LABORATORY DATA: As mentioned above in history of present illness. Chest x-ray as mentioned above in history of present illness. ASSESSMENT AND PLAN: 1. Acute on chronic congestive heart failure. 2. Chronic kidney disease. 3. Lymphedema. 4. History of deep venous thrombosis. 5. History of non-Hodgkin's lymphoma. 6. Dementia. 7. Detectable troponin. PLAN: 1. Admit. 2. Telemetry monitoring. 3. IV diuresis. 4. Monitor kidney function and urine output. 5. Consult the patient's grinder tender for evaluation and further recommendations. 6. Reconcile home medications. 7. DVT prophylaxis as appropriate. 8. Expected length of stay at least 1 midnight if the patient is stable and further workup negative. Job ID: [id number]
[2020-03-18 05:11] LABS: ALT (SGPT) 11 U/L (8-55); AST (SGOT) 16 U/L (5-34); Albumin 3.1 g/dL (3.4-4.8); Alkaline Phosphatase 84 U/L (40-110); Anion Gap 11 mmol/L (10-20); BUN (Urea Nitrogen) 84 mg/dL (9.8-20.1); Bilirubin, Total 0.5 mg/dL (0.2-1.2); Calc. Creatinine Clearance 46 mL/min (70-130); Calcium 9.7 mg/dL (7.8-10.44); Carbon Dioxide 34 mmol/L (23-31); Chloride 98 mmol/L (98-107); Estimated GFR-MDRD 32; Globulin 2.8 g/dL (2.4-3.5); Glucose 100 mg/dL (83-110); Potassium 3.3 mmol/L (3.5-5.1); Protein, Total 5.9 g/dL (6.0-8.3); Sodium 140 mmol/L (136-145)
[2020-03-18] MEDS: Furosemide 40 MG/4 ML VIAL SLOW IVP SCH ×2 (05:23→13:00)
[2020-03-18] MEDS: Ascorbic Acid 500 mg Chewable Tablet PO SCH (08:55)
[2020-03-18] MEDS: Allopurinol 100 MG TAB PO SCH (08:55)
[2020-03-18] MEDS: Gabapentin 100 MG CAP PO SCH ×2 (08:56→21:42)
[2020-03-18] MEDS: Magnesium Oxide 400 MG TAB PO SCH (08:56)
[2020-03-18] MEDS: Docusate 100 MG CAP PO SCH ×2 (08:56→21:41)
[2020-03-18] MEDS: Potassium Chloride 20 MEQ TAB PO SCH ×2 (08:56→21:42)
[2020-03-18] MEDS: Ferrous Sulfate 325 MG TAB PO SCH ×2 (08:56→21:42)
[2020-03-18] MEDS: hydrALAZINE 25 MG TAB PO SCH ×3 (08:56→21:42)
[2020-03-18] MEDS: DULoxetine 60 MG CAP PO SCH (08:56)
[2020-03-18] MEDS: Cyanocobalamin (Vitamin B-12) 1,000 MCG TAB PO SCH (08:56)
[2020-03-18] MEDS: Lactinex Tablet PO SCH ×2 (08:56→21:43)
[2020-03-18] MEDS: Multivit, Therapeutic 1 TAB PO SCH (08:57)
[2020-03-18] MEDS: Fluticasone Propionate Nasal Spray 16 gm Bottle NASAL SCH (08:57)
[2020-03-18] MEDS: Aspirin 325 MG TAB PO SCH (08:58)
[2020-03-18] MEDS ORDERED: Non-Formulary Item 1 EACH (Potassium Chloride [Potassium Chloride] 20 MEQ) PO SCH (09:00)
[2020-03-18] MEDS ORDERED: Non-Formulary Item 1 EACH (Ascorbic Acid [C-1000] 1,000 MG) PO SCH (09:00)
[2020-03-18] MEDS ORDERED: Non-Formulary Item 1 EACH (Cyanocobalamin (Vitamin B-12) [Vitamin B-12] 1,000 MCG) PO SCH (09:00)
[2020-03-18] MEDS ORDERED: Non-Formulary Item 1 EACH (Magnesium Oxide [Mag-Oxide] 400 MG) PO SCH (09:00)
[2020-03-18 10:42] LABS: INR-International Normal Ratio 1.6; Prothrombin Time 18.6 sec (12.0-14.7)
[2020-03-18] MEDS: Zinc Sulfate 220 MG CAP PO SCH (11:39)
[2020-03-18] MEDS: traMADol HCl 50 MG TAB PO PRN (14:00)
[2020-03-18] MEDS: Acetaminophen 500 MG TAB PO PRN (14:01)
[2020-03-18] MEDS ORDERED: Metolazone 5 MG TAB PO SCH (15:30)
--- NOTE | 2020-03-18 15:31 | PDOC.HOSPP ---
- Subjective Subjective: Seen and examined. Patient alert and oriented. She has just been put on her BiPAP this morning because she wants to take a nap. Patient's daughter at bedside, time was given for questions, all answered in detail. Greater than 40 minutes spent in the room. Patient's daughter has extensive logs of vital signs , weights, and labs/imaging at bedside which I quickly reviewed. Patient's daughter points out nearly a 30 pound weight gain since November of this year. She has been under the care of Dr. Alejo in the outpatient setting for CHF. Patient with chronic leg wounds has been seeing wound care in the outpatient setting for greater than one year. Patient on chronic antibiotics for lower extremity wounds under the care of Dr. Cai. Patient's varnish dipper is Dr. Sebastian for CKD. I will consult the specialists who know this patient the best. - Objective Vital Signs & Weight: Vital Signs (12 hours) Temp Pulse Pulse Pulse Resp BP BP 03/18/20 12:42 73 70 167/75 H 03/18/20 11:41 97.6 F 73 16 03/18/20 08:45 99.2 F 75 18 177/77 H 03/18/20 04:00 97.5 F L 66 20 BP BP Pulse Ox Pulse Ox Pulse Ox 03/18/20 12:42 166/76 H 94 L 93 L 03/18/20 11:41 188/88 H 92 L 03/18/20 08:45 92 L 03/18/20 04:00 145/66 H 92 L Weight Admit Weight 236 lb Weight 236 lb 1.6 oz I&O: 03/17/20 03/18/20 03/19/20 06:59 06:59 06:59 Intake Total 404 Output Total 700 Balance -296 Result Diagrams: 03/17/20 17:39 03/18/20 04:17 Radiology Reviewed by me: Yes Hospitalist ROS - Review of Systems All other systems reviewed; all pertinent +/- noted in HPI/Subj - Medication Medications: Active Medications Generic Name Dose Route Start Last Admin Trade Name Freq PRN Reason Stop Dose Admin Acetaminophen 500 mg 03/18/20 00:21 03/18/20 14:01 Tylenol PO 500 mg Q4HR PRN Administration Pain Hydrocodone Bitart/Acetaminophen 1 tab 03/18/20 00:21 03/18/20 00:42 [place] 10/325 PO 1 tab Q4HR PRN Administration Moderate Pain (4-6) Acidophilus 1 tab 03/18/20 09:00 03/18/20 08:56 Floranex PO 1 tab BID CODY Administration Allopurinol 100 mg 03/18/20 09:00 03/18/20 08:55 Zyloprim PO 100 mg 0900 CODY Administration Ascorbic Acid 1,000 mg 03/18/20 09:00 03/18/20 08:55 Vitamin C PO 1,000 mg DAILY CODY Administration Aspirin 325 mg 03/18/20 09:00 03/18/20 08:58 Aspirin PO Not Given DAILY [facility] Clonidine 0.1 mg 03/17/20 23:54 03/18/20 11:48 Catapres PO 0.1 mg Q8H PRN Administration SBP GREATER THAN 160 Cyanocobalamin 1,000 mcg 03/18/20 09:00 03/18/20 08:56 Vitamin B-12 PO 1,000 mcg DAILY CODY Administration Docusate Sodium 100 mg 03/18/20 09:00 03/18/20 08:56 Colace PO 100 mg BID CODY Administration Duloxetine HCl 60 mg 03/18/20 09:00 03/18/20 08:56 Cymbalta PO 60 mg 0900 CODY Administration Ferrous Sulfate 325 mg 03/18/20 09:00 03/18/20 08:56 Feosol PO 325 mg BID CODY Administration Fluticasone Propionate 0 gm 03/18/20 09:00 03/18/20 08:57 Flonase Nasal [place] NASAL 1 spr DAILY CODY Administration Furosemide 40 mg 03/18/20 06:00 03/18/20 13:00 Lasix SLOW IVP 40 mg 0600,1400 CODY Administration Gabapentin 100 mg 03/18/20 09:00 03/18/20 08:56 Neurontin PO 100 mg 0900 CODY Administration Hydralazine HCl 25 mg 03/18/20 09:00 03/18/20 08:56 Apresoline PO 25 mg TID CODY Administration Magnesium Oxide 400 mg 03/18/20 09:00 03/18/20 08:56 Magnesium Oxide PO 400 mg DAILY CODY Administration Multivitamins 1 tab 03/18/20 09:00 03/18/20 08:57 Theragran PO 1 tab DAILY CODY Administration Pantoprazole Sodium 40 mg 03/18/20 09:00 03/18/20 08:56 Protonix PO 40 mg 0900 CODY Administration Potassium Chloride 20 meq 03/18/20 09:00 03/18/20 08:56 K-Dur PO 20 meq BID CODY Administration Sodium Chloride 10 ml 03/18/20 09:00 03/18/20 09:08 Flush - Normal Saline IVF 10 ml Q12HR CODY Administration Tramadol HCl 50 mg 03/18/20 08:04 03/18/20 14:00 Ultram PO 50 mg Q4H PRN Administration Pain Zinc Sulfate 220 mg 03/18/20 12:00 03/18/20 11:39 Zinc Sulfate PO 220 mg 1200 CODY Administration - Exam General Appearance: NAD, awake alert Eye: anicteric sclera ENT: normocephalic atraumatic, moist mucosa Neck: supple, symmetric, no lymphadenopathy Heart: no murmur, no gallops, no rubs, normal peripheral pulses Respiratory: no wheezes, no ronchi, normal chest expansion, no tachypnea, rales (mild) Gastrointestinal: soft, non-tender, no guarding, no rigidity Extremities - other findings: 4+ LE edema Skin - other findings: dressings clean and dry Neurological: cranial nerve grossly intact, no focal deficits Musculoskeletal: generalized weakness Psychiatric: A&O x 3 Hosp A/P (1) Acute on chronic diastolic CHF (congestive heart failure) Code(s): I50.33 - ACUTE ON CHRONIC DIASTOLIC (CONGESTIVE) HEART FAILURE Status : Acute (2) CKD (chronic kidney disease), stage III Code(s): N18.3 - CHRONIC KIDNEY DISEASE, STAGE 3 (MODERATE) Status: Acute (3) Cellulitis of right lower extremity Code(s): L03.115 - CELLULITIS OF RIGHT LOWER LIMB Status: Acute (4) Anemia, macrocytic Code(s): D53.9 - NUTRITIONAL ANEMIA, UNSPECIFIED Status: Chronic (5) Anxiety and depression Code(s): F41.9 - ANXIETY DISORDER, UNSPECIFIED; F32.9 - MAJOR DEPRESSIVE DISORDER, SINGLE EPISODE, UNSPECIFIED Status: Chronic (6) CKD (chronic kidney disease) stage 4, GFR 15-29 ml/min Code(s): N18.4 - CHRONIC KIDNEY DISEASE, STAGE 4 (SEVERE) Status: Chronic (7) Chronic acquired lymphedema Code(s): I89.0 - LYMPHEDEMA, NOT ELSEWHERE CLASSIFIED Status: Chronic (8) Chronic kidney disease (CKD) Code(s): N18.9 - CHRONIC KIDNEY DISEASE, UNSPECIFIED Status: Chronic Qualifiers: Chronic kidney disease stage: stage 4 (severe) Qualified Code(s): N18.4 - Chronic kidney disease, stage 4 (severe) (9) Dyslipidemia Code(s): E78.5 - HYPERLIPIDEMIA, UNSPECIFIED Status: Chronic (10) History of arthroplasty of right knee Code(s): Z96.651 - PRESENCE OF RIGHT ARTIFICIAL KNEE JOINT Status: Chronic (11) History of deep venous thrombosis or pulmonary embolus Code(s): XRH9884 - Status: Chronic (12) Hypertension Code(s): I10 - ESSENTIAL (PRIMARY) HYPERTENSION Status: Chronic Qualifiers: Hypertension type: essential hypertension Qualified Code(s): I10 - Essential (primary) hypertension (13) Leg wound, left Code(s): S81.802A - UNSPECIFIED OPEN WOUND, LEFT LOWER LEG, INITIAL ENCOUNTER Status: Chronic (14) FAUSTINO (obstructive sleep apnea) Code(s): G47.33 - OBSTRUCTIVE SLEEP APNEA (ADULT) (PEDIATRIC) Status: Chronic (15) Obesity (BMI 30-39.9) Code(s): E66.9 - OBESITY, UNSPECIFIED Status: Chronic (16) Physical deconditioning Code(s): R53.81 - OTHER MALAISE Status: Chronic (17) Acute kidney injury Code(s): N17.9 - ACUTE KIDNEY FAILURE, UNSPECIFIED Status: Acute - Plan Plan: medical unit with telemetry cardiology consultation, recommendations appreciated nephrology consultation, recommendations appreciated infectious disease consultation, recommendations appreciated wound care consultation, recommendations appreciated IV Lasix BID fluid restrictions patient with roughly 30 pounds of weight gain since November of this year, this is despite good follow up with her outpatient gastroenterology manager ALEJANDRA versus CKD chronic antibiotic therapy, will continue and ask for input from Dr. Cai continue other home medications is able blood pressure control blood sugar control GI prophylaxis DVT prophylaxis Disposition: Greater than 40 minutes spent with patient and daughter at bedside , time was given for questions, all answered in detail.
[2020-03-18] MEDS: Warfarin Sodium 3 MG TAB PO SCH (15:37)
--- NOTE | 2020-03-18 16:24 | CON ---
DATE OF CONSULTATION: REASON FOR CONSULT: Followup on prior suppressive antimicrobial therapy in the setting of decompensation of her CHF. HISTORY OF PRESENT ILLNESS: An 84-year-old was well known to us from prior visits, both in the hospital and clinic. 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 She also has cellulitis in the lower extremities and then had a skin eruption which was felt to be due to the vascular changes associated with the use of compressive lymphedema pump in the pelvis and lower extremity area. Now she presents with worsening dyspnea, having failed outpatient management. This is associated with worsening lower extremity edema. On arrival, BP 180/86, pulse 75, respirations 24, temperature 98, O2 saturation 93. She is not in acute distress. Appears to be oriented. Abdomen was not tender. The joint was not inflamed. She had a breakdown of the skin in a previous chronic wound associated with worsening edema. This was in the left lateral lower extremity. No headaches. No vomiting. No bleeding. No genitourinary symptoms. 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 ALLERGIES: PENICILLIN, LATEX. SOCIAL HISTORY: Never a smoker, lives with daughter in [place]. FAMILY HISTORY: Noncontributory. CURRENT MEDICATIONS: 1. Zyloprim. 2. Vitamin C. 3. Aspirin. 4. Keflex b.i.d., suppressive dose. 5. Colace. 6. Vibramycin 100 mg daily. 7. Flonase. 8. Neurontin. 9. Apresoline. 10. Multivitamins. 11. Pantoprazole. 12. Tramadol. 13. Warfarin. 14. She is on furosemide 40 b.i.d. PHYSICAL EXAMINATION: VITAL SIGNS: T-max 99.2, BP 160/70, pulse 73, O2 saturation 93%. SKIN: Area of abrasion, lateral aspect of the left ankle. Peripheral IV access. She does not have Schroeder catheter. LYMPH: No lymphadenopathy. HEENT: Ocular movements conjugate. She has a CPAP machine on. NECK: Some jugular vein distention. LUNGS: Fairly clear breath sounds. HEART: S1, S2, regular rate. HEART: Diminished heart sounds. No murmurs. ABDOMEN: Not distended. No ascites. No bladder distention. No organomegaly. EXTREMITIES: TKR without inflammatory changes. Pulses are 1+ in dorsalis pedis and she has 2+ edema in lower extremities. NEUROLOGIC: She is awake, oriented, follows commands. LABORATORY DATA: White cell count 8.0, hemoglobin 13, platelets 326, 82% neutrophils. INR 1.6. Sodium 140, creatinine 1.55, which is actually close to her baseline. Albumin 3.1. ASSESSMENT: Diastolic congestive heart failure; non-Hodgkin lymphoma, in remission; right total knee replacement infection, in remission, on suppressive therapy; cellulitis of legs, in remission as well. The patient to continue suppressive doxy and Keflex in the above described doses and proceed with management of volume overload. Job ID: [id number] MTDD
[2020-03-18] MEDS ORDERED: WARFARIN SODIUM 6 MG PO SCH (17:00)
[2020-03-18] MEDS ORDERED: Non-Formulary Item 1 EACH (Melatonin [Melatonin] 10 MG) PO SCH (21:00)
[2020-03-18] MEDS ORDERED: Cephalexin 250 MG CAP PO SCH (21:00)
--- NOTE | 2020-03-18 21:24 | CON ---
DATE OF CONSULTATION: 03/18/2020 INDICATION FOR CONSULTATION: An 84-year-old female with CHF exacerbation due to diastolic dysfunction. She has chronic diastolic heart failure. HISTORY OF PRESENT ILLNESS: This very pleasant 84-year-old female, who has been followed by Dr. Alejo for many years now. She has a history of severe diastolic heart failure. She has been admitted to the hospital on other occasions with volume overload back in 2016. She actually underwent diuresis for about 100 pounds since that time. She has been trying to keep the weight off, but recently the daughter says since about January she has gained about 30 pounds of fluid and continually she has a lymphedema problem. She has had a problem, where she has had a history of non-Hodgkin lymphoma in the past. 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 Her medications have been recently adjusted. The last time she has had a followup in the office, although a telephone call back in January of 2020. I think the torsemide dose was increased and also she was suggested of a fluid restriction of 1300 mL a day. She has been taken care of by the family and they have been doing a very good job with watching her weight and have extensive records to show exactly how she has trended upwards with her weights overall. Now, she is up to 236 pounds and back earlier, she was 208 pounds, I believe back in November or December. She denied any chest pain. She was brought to the emergency room at the request of Dr. Alejo after she complained of the increased weight again and also she did have some orthopnea when she is lying down. She has shortness of breath. Previously that was not the case. She does have some mild shortness of breath anyway, but she has sleep apnea. She has been sleeping in somewhat of an angle, but this has become worse and she was asked to sit more upright in order to breathe. She denies any chest pain, but cardiac enzymes were indeterminate for troponin I of 0.08, increased up to 0.108. She did have a stress test in 2013, which showed no ischemia with ejection fraction of 57%. Her last echocardiogram that I can find on record was in July of 2018, which showed evidence of ejection fraction of 50% to 55% with [id number] or severe left atrial dilatation with moderate mitral valve regurgitation as well as [id number] aortic valve stenosis and mild tricuspid and pulmonary valve regurgitation. Since she has been in the hospital, she has negative only about 300 mL uncertain as to exactly how much urine was put out in the emergency room; however, and so this may be actually more. She is a little bit more comfortable than when she was admitted. Her renal function also is a chronic problem. On admission, her BUN was 93 with a creatinine 1.7, today the creatinine is 1.55 with BUN of 84. Her BNP was 1709. Her chest x-ray did show pulmonary congestion compatible with her congestive heart failure. Her EKG shows a normal sinus rhythm with left atrial dilatation and left ventricular hypertrophy with left anterior fascicular block with no acute ST-segment changes were noted. She did have a bilateral rales on the physical examination compatible with congestive heart failure. At this time, she has had chronic lower extremity edema. She continuously has the legs wrapped and she also uses a pump to help with the lower extremity edema. Also, she uses only once a day and it can be suggested she can easily use this two or three times a day in order to help with some of the swelling in the lower extremities. PAST MEDICAL HISTORY: Positive for the non-Hodgkin lymphoma. She has had a history of blood clots or I believe DVTs in the past. I do not believe she has had any pulmonary emboli, but she has had a history of acute pulmonary edema in the past. She has a history of COPD. She has hypertension, chronic diastolic heart failure, and hypercholesterolemia. She has osteoarthritis and chronic lymphedema. She has a history of chronic kidney disease. She has one kidney. She has had history of mild aortic valve stenosis. She has a history of gastroesophageal reflux disease. She has sleep apnea. She has had bilateral cataract surgery and cholecystectomy. She has had right knee arthroplasty. She has had problems with cellulitis in the past and has open wounds, which have healed. She has been seen by Dr. Cai for chronic cellulitis. FAMILY HISTORY: There is a family history of also DVTs with her siblings and also her parents, her mother. Her father had a symptom of brain tumor. She has had some history of cancer in her siblings. SOCIAL HISTORY: There is no history of alcohol or tobacco abuse. ALLERGIES: SHE IS ALLERGIC TO SULFAMETHOXAZOLE, TRIMETHOPRIM, LATEX, PENICILLIN G, AND NITROFURANTOIN. REVIEW OF SYSTEMS: She mainly complains of the weight gain and some shortness of breath or actually orthopnea. Otherwise, review of systems she continues to complain of the lower extremity edema. She is somewhat uncomfortable. She has pain in the hips and also the knees due to her arthritis. She denied any GI or complaints otherwise and no significant pulmonary complaints except for the shortness of breath and no history of syncope or seizures. PHYSICAL EXAMINATION: GENERAL: Reveals an elderly female. She is in no acute distress at this time. VITAL SIGNS: Her blood pressure was 166/76, early was 145/66, and previous to that was 188/88. Her heart rates in the 70s and shows a normal sinus rhythm and respiratory rate 16. She is afebrile. O2 saturation is 93%. HEENT: Shows the head to be normocephalic and atraumatic. Carotid pulses are present. I could not hear any significant bruits, but she did have a CPAP mask making to auscultation somewhat more difficult. CARDIOVASCULAR: Reveals a regular rate and rhythm. She has a systolic murmur over the upper sternal border compatible most likely with aortic valve sclerosis or stenosis. She also has a systolic murmur at the apex, 2/6 compatible with some mitral valve regurgitation. There were no significant bruits or heaves. No S3 or S4 is appreciated. GI: Abdominal exam shows it is slightly tympanic and obese, but no palpable masses or tenderness are noted. EXTREMITIES: Lower extremities are wrapped in a type of occlusive dressings to help with the edema. I cannot palpate pedal pulses. NEUROLOGIC: The patient appears to be intact. I do not see any gross focal motor deficit at this time. She is able to stand, but mainly is in the wheelchair in the bed. SKIN: Warm and dry. I did notice that the lower extremities before they were wrapped, she did have chronic changes of skin changes compatible with old or continued lower extremity edema. IMAGING DATA: Her EKG shows a normal sinus rhythm with left atrial dilatation, left ventricular hypertrophy, and most likely left anterior fascicular block, which is somewhat difficult to interpret in the phase of the left ventricular hypertrophy. LABORATORY DATA: Shows a hemoglobin of 13.5, WBC was 8.0, and platelet count was 326,000. Her INR was 1.6. Sodium was 140, potassium was 3.3, bicarb was 34, chloride was 98, BUN was 84 and creatinine was 1.55 with a blood sugar of 100. Troponin I as noted above 0.08 increased up to 0.108 and BNP was 1709 and her MB was 2.4. IMPRESSION AND PLAN: 1. Congestive heart failure exacerbation due to diastolic heart failure with volume overload, she has gained about 30 pounds within the last 6 months or at least in the last 3 to 4 months it appears. We will try to diurese her with IV diuretics. On discharge, we will continue to take the torsemide at an increased dose of about 40 mg or 60 mg in the mornings and also probably 40 mg in the evenings. She may need to be seen by the prep person to see if there has been any other additional attempts to help with her diuresis with her diastolic dysfunction. 2. Single kidney. 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 3. Hypertension. We will need to certainly manage these medications. I will see what we can do to get the blood pressure under better control without having to use the medications such as Norvasc or Procardia that may give her more lower extremity edema. She has not had a recent echocardiogram. We will schedule her for an echocardiogram to see whether or not the aortic valve may be playing a role in the increasing lower extremity edema or a fluid gain. If the aortic valve has worsened, then she may be a candidate for aortic valve implant using TAVR, but obviously would not be a candidate for surgical procedure likely due to her multiple comorbid factors. 4. Hyperlipidemia. I do not see any recent cholesterol level. The last cholesterol that I see in the record was LDL of 92 back in 2017. This may not be as important at this time, this can be performed later as an outpatient. 5. Chronic kidney disease. Again, may defer to the prep person to have their input as to how we can best control her volume intake. At this time, I would suggest we decrease her p.o. liquids to 1300 mL a day. We will continue IV diuretics for now. She eventually may need to have an inotropic infusions in order to better diurese. However, her last ejection fraction was about 50% to 55%, but I will repeat the echocardiogram to ensure that the left ventricular systolic function has remained stable. As far as her diastolic dysfunction is concerned, diuretics we will continue and also the hydralazine at this time. She is not on an angiotensin-converting enzyme inhibitor or an angiotensin receptor blockers due to her chronic kidney disease. There was some consideration that perhaps Ranexa may help some people with diastolic heart failure and this may be a consideration if we are unable to control the fluid via conventional methods. Job ID: [id number]
[2020-03-18] MEDS: Estradiol 0.01% Vaginal Cream 42.5 gm Tube VAG SCH (21:31)
[2020-03-18] MEDS: Melatonin 3 MG TAB PO SCH (21:41)
--- NOTE | 2020-03-19 00:30 | CON ---
DATE OF CONSULTATION: 03/18/2020 CONSULTING PHYSICIAN: Jalen Lane DO REASON FOR CONSULTATION: Acute kidney injury. REASON FOR ADMISSION: Shortness of breath. HISTORY OF PRESENT ILLNESS: An 84-year-old female with history of CHF, CKD, hypertension, and lymphedema, came to the hospital with shortness of breath. She was treated for congestive heart failure and Nephrology was consulted for acute kidney injury. The patient does have chronic kidney disease and been following with Dr. Sebastian. No fever or chills. No nausea or vomiting. PAST MEDICAL HISTORY: Positive for CHF, lymphoma, chronic kidney disease, hypertension, lymphedema, DVT, and dementia. PAST SURGICAL HISTORY: Cholecystectomy, right knee surgery, and cataract surgery. HOME MEDICATIONS: Reviewed. ALLERGIES: TO PENICILLIN, ADHESIVES, NITROFURANTOIN, AND SULFA. SOCIAL HISTORY: No smoking, alcohol, or drugs. FAMILY HISTORY: No history of kidney disease. REVIEW OF SYSTEMS: CONSTITUTIONAL: Negative for weight loss or gain, ability to conduct usual activities. SKIN: Negative for rash, itching. EYES: Negative for double vision, pain. ENT/MOUTH: Negative for nose bleeding, neck stiffness, pain, tenderness. CARDIOVASCULAR: Negative for palpitations, dyspnea on exertion, orthopnea. RESPIRATORY: Negative for shortness of breath, wheezing, cough, hemoptysis, fever or night sweats. GASTROINTESTINAL: Negative for poor appetite, abdominal pain, heartburn, nausea, vomiting, constipation, or diarrhea. GENITOURINARY: Negative for urgency, frequency, dysuria, nocturia. MUSCULOSKELETAL: Negative for pain, swelling. NEUROLOGIC/PSYCHIATRIC: Negative for anxiety, depression. ALLERGY/IMMUNOLOGIC: Negative for skin rash, bleeding tendency. PHYSICAL EXAMINATION: GENERAL: This is a well-built female, in no apparent distress. VITAL SIGNS: Temperature 97.5, pulse 76, respiratory rate 18, and blood pressure 167/75. HEENT: Atraumatic and normocephalic. Oral mucosa moist. NECK: Supple. CV: S1 and S2. Regular. RESPIRATORY: Clear. GI: Abdomen is soft. MUSCULOSKELETAL: 1+ edema. DERMATOLOGIC: No skin rash. NEUROLOGIC: Alert and awake. PSYCHIATRIC: Mood and affect normal. LABORATORY DATA: Potassium is 3.3, BUN is 84, and creatinine is 1.5. ASSESSMENT AND PLAN: 1. Acute kidney injury on chronic kidney disease stage 3. Renal function with slight improvement. Creatinine improved to 1.5 from 1.7, so continue current management. Currently on diuretic therapy. Monitor Is and Os and renal function and electrolytes closely. 2. Hypokalemia, mild. Monitor magnesium and potassium. 3. Metabolic alkalosis. 4. Chronic lymphedema. 5. History of hypertension. 6. Elevated BNP. 7. Cardiorenal syndrome. 8. Mild hypoalbuminemia with mild protein calorie malnutrition. 9. Monitor labs closely. Renal function is better. Avoid nephrotoxins. Continue diuretic therapy with close monitoring. We will continue to follow. Thank you for the consult. Job ID: [id number]
[2020-03-19 04:29] LABS: INR-International Normal Ratio 1.5
[2020-03-19 04:40] LABS: Anion Gap 12 mmol/L (10-20); BUN (Urea Nitrogen) 80 mg/dL (9.8-20.1); Calc. Creatinine Clearance 48 mL/min (70-130); Carbon Dioxide 36 mmol/L (23-31); Chloride 97 mmol/L (98-107); Estimated GFR-MDRD 33; Glucose 98 mg/dL (83-110); Sodium 142 mmol/L (136-145)
[2020-03-19] MEDS: Furosemide 40 MG/4 ML VIAL SLOW IVP SCH ×2 (05:45→14:52)
[2020-03-19] MEDS: Allopurinol 100 MG TAB PO SCH (08:43)
[2020-03-19] MEDS: Ascorbic Acid 500 mg Chewable Tablet PO SCH (08:43)
[2020-03-19] MEDS: Aspirin 325 MG TAB PO SCH (08:43)
[2020-03-19] MEDS: Docusate 100 MG CAP PO SCH ×2 (08:45→21:38)
[2020-03-19] MEDS: Cyanocobalamin (Vitamin B-12) 1,000 MCG TAB PO SCH (08:45)
[2020-03-19] MEDS: Ferrous Sulfate 325 MG TAB PO SCH ×2 (08:45→21:39)
[2020-03-19] MEDS: Doxycycline 100 MG CAP PO SCH (08:45)
[2020-03-19] MEDS: DULoxetine 60 MG CAP PO SCH (08:45)
[2020-03-19] MEDS: hydrALAZINE 25 MG TAB PO SCH ×3 (08:46→21:41)
[2020-03-19] MEDS: Gabapentin 100 MG CAP PO SCH ×2 (08:46→21:38)
[2020-03-19] MEDS: Potassium Chloride 20 MEQ TAB PO SCH ×2 (08:47→21:38)
[2020-03-19] MEDS: Multivit, Therapeutic 1 TAB PO SCH (08:47)
[2020-03-19] MEDS: Lactinex Tablet PO SCH ×2 (08:47→21:38)
[2020-03-19] MEDS: Magnesium Oxide 400 MG TAB PO SCH (08:47)
[2020-03-19 09:13] LABS: Hemoglobin 13.3 g/dL (12.0-16.0); Platelet Count 319 thou/uL (130-400)
[2020-03-19] MEDS: Fluticasone Propionate Nasal Spray 16 gm Bottle NASAL SCH (10:26)
[2020-03-19] MEDS: Acetaminophen 500 MG TAB PO PRN (10:34)
[2020-03-19] MEDS: traMADol HCl 50 MG TAB PO PRN (10:34)
[2020-03-19] MEDS: Cephalexin 250 MG CAP PO SCH ×2 (10:34→21:39)
[2020-03-19] MEDS: Zinc Sulfate 220 MG CAP PO SCH (11:58)
[2020-03-19] MEDS: Nystatin Powder 15 GM BOT TOP PRN ×2 (11:59→21:50)
--- NOTE | 2020-03-19 13:30 | PDOC.CPN ---
- Subjective Date: 03/19/20 Time: 13:52 Interval history: The pt seen and examined. No overnight events. No cardiac complaints. However , the pt is easy to doze off - Objective Allergies/Adverse Reactions: Allergies Allergy/AdvReac Type Severity Reaction Status Date / Time Penicillins Allergy Unknown Verified 01/10/20 22:36 adhesive tape Allergy Verified 01/10/20 22:36 levofloxacin [From Levaquin] Allergy Verified 01/10/20 22:36 nitrofurantoin Allergy Verified 01/10/20 22:36 [From Macrobid] sulfamethoxazole Allergy Verified 01/10/20 22:36 [From Bactrim] trimethoprim [From Bactrim] Allergy Verified 01/10/20 22:36 Visit Medications: Current Medications Acetaminophen (Tylenol) 500 mg PO Q4HR PRN PRN Reason: Pain Last Admin: 03/19/20 10:34 Dose: 500 mg Hydrocodone Bitart/Acetaminophen ([place] 10/325) 1 tab PO Q4HR PRN PRN Reason: Moderate Pain (4-6) Last Admin: 03/18/20 21:45 Dose: 1 tab Acidophilus (Floranex) 1 tab PO BID [facility] Last Admin: 03/19/20 08:47 Dose: 1 tab Allopurinol (Zyloprim) 100 mg PO 0900 [facility] Last Admin: 03/19/20 08:43 Dose: 100 mg Ascorbic Acid (Vitamin C) 1,000 mg PO DAILY [facility] Last Admin: 03/19/20 08:43 Dose: 1,000 mg Cephalexin (Keflex) 250 mg PO BID [facility] Last Admin: 03/19/20 10:34 Dose: 250 mg Clonidine (Catapres) 0.1 mg PO Q8H PRN PRN Reason: SBP GREATER THAN 160 Last Admin: 03/18/20 11:48 Dose: 0.1 mg Cyanocobalamin (Vitamin B-12) 1,000 mcg PO DAILY [facility] Last Admin: 03/19/20 08:45 Dose: 1,000 mcg Docusate Sodium (Colace) 100 mg PO BID [facility] Last Admin: 03/19/20 08:45 Dose: 100 mg Doxycycline Hyclate (Vibramycin) 100 mg PO DAILY [facility] Last Admin: 03/19/20 08:45 Dose: 100 mg Duloxetine HCl (Cymbalta) 60 mg PO 0900 [facility] Last Admin: 03/19/20 08:45 Dose: 60 mg Estradiol (Estrace 0.01% Vaginal Cream) 2 gm VAG 2100 [facility] Last Admin: 03/18/20 21:31 Dose: 2 gm Ferrous Sulfate (Feosol) 325 mg PO BID [facility] Last Admin: 03/19/20 08:45 Dose: 325 mg Fluticasone Propionate (Flonase Nasal [place]) 0 gm NASAL DAILY [facility] Last Admin: 03/19/20 10:26 Dose: Not Given Furosemide (Lasix) 40 mg SLOW IVP 0600,1400 [facility] Last Admin: 03/19/20 05:45 Dose: 40 mg Gabapentin (Neurontin) 200 mg PO 2100 [facility] Last Admin: 03/18/20 21:42 Dose: 200 mg Gabapentin (Neurontin) 100 mg PO 0900 [facility] Last Admin: 03/19/20 08:46 Dose: 100 mg Hydralazine HCl (Apresoline) 25 mg PO TID [facility] Last Admin: 03/19/20 08:46 Dose: 25 mg Magnesium Oxide (Magnesium Oxide) 400 mg PO DAILY [facility] Last Admin: 03/19/20 08:47 Dose: 400 mg Melatonin (Melatonin) 9 mg PO HS [facility] Last Admin: 03/18/20 21:41 Dose: 9 mg Miscellaneous Medication (Pharmacy To Dose) 1 each IVPB PRN PRN PRN Reason: Pharmacy to dose Multivitamins (Theragran) 1 tab PO DAILY [facility] Last Admin: 03/19/20 08:47 Dose: 1 tab Nystatin (Mycostatin Powder) 0 gm TOP BID PRN PRN Reason: yeast infection Last Admin: 03/19/20 11:59 Dose: 1 applic Pantoprazole Sodium (Protonix) 40 mg PO 0900 [facility] Last Admin: 03/19/20 08:47 Dose: 40 mg Potassium Chloride (K-Dur) 40 meq PO BID [facility] Stop: 03/20/20 21:01 Sodium Chloride (Flush - Normal Saline) 10 ml IVF Q12HR [facility] Last Admin: 03/19/20 08:48 Dose: 10 ml Sodium Chloride (Flush - Normal Saline) 10 ml IVF PRN PRN PRN Reason: Saline Flush Last Admin: 03/19/20 05:45 Dose: 10 ml Tramadol HCl (Ultram) 50 mg PO Q4H PRN PRN Reason: Pain Last Admin: 03/19/20 10:34 Dose: 50 mg Warfarin Sodium (Coumadin) 6 mg PO 1700 [facility] Last Admin: 03/18/20 15:37 Dose: 6 mg Zinc Sulfate (Zinc Sulfate) 220 mg PO 1200 [facility] Last Admin: 03/19/20 11:58 Dose: 220 mg Vital Signs & Weight: Vital Signs Temp Pulse Resp BP Pulse Ox 03/19/20 11:50 97.5 F L 77 18 155/70 H 92 L 03/19/20 08:35 98.2 F 82 18 92 L 03/19/20 04:00 97.0 F L 72 18 161/73 H 93 L 03/19/20 03:45 92 L Admit Weight 236 lb Weight 236 lb 9.6 oz - Physical Exam General: alert & oriented x3 HEENT: mucus membranes moist Neck: supple neck Cardiac: regular rate and rhythm, S1/S2 Lungs: decreased breath sounds - Labs Result Diagrams: 03/19/20 09:01 03/19/20 03:25 Troponin/CKMB CK-MB (CK-2) 2.4 ng/mL (0-6.6) 03/17/20 17:39 Troponin I 0.108 ng/mL (< 0.028) H 03/17/20 23:34 - Telemetry Sinus rhythms and dysrhythmias: sinus rhythm - Assessment/Plan Assessment/Plan: 1. Acute on chronic Systolic/Diastolic HF with EF 35-40% (50-55% in 2018) with gaining 30 lbs over last 6 months - stable with RA; on Lasix 40mg IV BID; will resume Coreg with low dose; not on EVELYN/ARB due to hx of CKD 2. ALEJANDRA on CKD stage 3 with 1 kidney - managed by cosmetics machine operator 3. HTN - will resume Coreg 4. HLD - on 5. Cellulitis of RLE - managed by Dr Cai 6. Anemia 7. Hx of non-Hodgkin lymphoma, in remission 8. Hx of DVTs with Coumadin 9. Obese 10. COPD 11. Mod-Severe MAR reviewed * Echo on 03/18/2020 with EF 35-40% (50-55% in 2018), grade I dd, mild DARBY, mod- severe LAE, mild AR, mod-severe with valve area 1.0-1.2 sq cm, mild-mod TR, mod elevated PVSP 57mmHg, and mild-mod IN Pt. seen and eval. by me. I agree with the A/P by the SLEEVE BASTER. Chest : bibasilar rales. RRR, murmur. lower extremities wrapped. She says she feels a little better and is not so short of breath. the BP has been difficult to control today. she has had clonidine and now will give IV hydralazine. dificult situation with syst/diast. CHF,renal insufficiency,. Will continue diuresis and medication adjustment. ti
--- NOTE | 2020-03-19 14:05 | PDOC.HOSPP ---
- Subjective Subjective: Seen and examined. Appears clinically improved. She is sitting up at the edge of the bed dangling her legs off the side. She is breathing comfortably on room air. Patient has no complaints, there were no acute overnight events. Patient's daughter at bedside, time was given for questions, all answered in detail. - Objective Vital Signs & Weight: Vital Signs (12 hours) Temp Pulse Resp BP Pulse Ox 03/19/20 11:50 97.5 F L 77 18 155/70 H 92 L 03/19/20 08:35 98.2 F 82 18 92 L 03/19/20 04:00 97.0 F L 72 18 161/73 H 93 L 03/19/20 03:45 92 L Weight Admit Weight 236 lb Weight 236 lb 9.6 oz I&O: 03/18/20 03/19/20 03/20/20 06:59 06:59 06:59 Intake Total 404 1457 Output Total 700 2000 Balance -296 -543 Result Diagrams: 03/19/20 09:01 03/19/20 03:25 Radiology Reviewed by me: Yes Hospitalist ROS - Review of Systems All other systems reviewed; all pertinent +/- noted in HPI/Subj - Medication Medications: Active Medications Generic Name Dose Route Start Last Admin Trade Name Freq PRN Reason Stop Dose Admin Acetaminophen 500 mg 03/18/20 00:21 03/19/20 10:34 Tylenol PO 500 mg Q4HR PRN Administration Pain Hydrocodone Bitart/Acetaminophen 1 tab 03/18/20 00:21 03/18/20 21:45 [place] 10/325 PO 1 tab Q4HR PRN Administration Moderate Pain (4-6) Acidophilus 1 tab 03/18/20 09:00 03/19/20 08:47 Floranex PO 1 tab BID [facility] Administration Allopurinol 100 mg 03/18/20 09:00 03/19/20 08:43 Zyloprim PO 100 mg 0900 [facility] Administration Ascorbic Acid 1,000 mg 03/18/20 09:00 03/19/20 08:43 Vitamin C PO 1,000 mg DAILY [facility] Administration Cephalexin 250 mg 03/19/20 09:00 03/19/20 10:34 Keflex PO 250 mg BID [facility] Administration Clonidine 0.1 mg 03/17/20 23:54 03/18/20 11:48 Catapres PO 0.1 mg Q8H PRN Administration SBP GREATER THAN 160 Cyanocobalamin 1,000 mcg 03/18/20 09:00 03/19/20 08:45 Vitamin B-12 PO 1,000 mcg DAILY [facility] Administration Docusate Sodium 100 mg 03/18/20 09:00 03/19/20 08:45 Colace PO 100 mg BID [facility] Administration Doxycycline Hyclate 100 mg 03/19/20 09:00 03/19/20 08:45 Vibramycin PO 100 mg DAILY [facility] Administration Duloxetine HCl 60 mg 03/18/20 09:00 03/19/20 08:45 Cymbalta PO 60 mg 0900 [facility] Administration Estradiol 2 gm 03/18/20 21:00 03/18/20 21:31 Estrace 0.01% Vaginal Cream VAG 2 gm 2100 [facility] Administration Ferrous Sulfate 325 mg 03/18/20 09:00 03/19/20 08:45 Feosol PO 325 mg BID [facility] Administration Fluticasone Propionate 0 gm 03/18/20 09:00 03/19/20 10:26 Flonase Nasal [place] NASAL Not Given DAILY [facility] Furosemide 40 mg 03/18/20 06:00 03/19/20 05:45 Lasix SLOW IVP 40 mg 0600,1400 [facility] Administration Gabapentin 200 mg 03/18/20 21:00 03/18/20 21:42 Neurontin PO 200 mg 2100 [facility] Administration Gabapentin 100 mg 03/18/20 09:00 03/19/20 08:46 Neurontin PO 100 mg 0900 [facility] Administration Hydralazine HCl 25 mg 03/18/20 09:00 03/19/20 08:46 Apresoline PO 25 mg TID [facility] Administration Magnesium Oxide 400 mg 03/18/20 09:00 03/19/20 08:47 Magnesium Oxide PO 400 mg DAILY [facility] Administration Melatonin 9 mg 03/18/20 21:00 03/18/20 21:41 Melatonin PO 9 mg HS [facility] Administration Multivitamins 1 tab 03/18/20 09:00 03/19/20 08:47 Theragran PO 1 tab DAILY [facility] Administration Nystatin 0 gm 03/18/20 08:04 03/19/20 11:59 Mycostatin Powder TOP 1 applic BID PRN Administration yeast infection Pantoprazole Sodium 40 mg 03/18/20 09:00 03/19/20 08:47 Protonix PO 40 mg 0900 [facility] Administration Sodium Chloride 10 ml 03/18/20 09:00 03/19/20 08:48 Flush - Normal Saline IVF 10 ml Q12HR [facility] Administration Sodium Chloride 10 ml 03/18/20 08:08 03/19/20 05:45 Flush - Normal Saline IVF 10 ml PRN PRN Administration Saline Flush Tramadol HCl 50 mg 03/18/20 08:04 03/19/20 10:34 Ultram PO 50 mg Q4H PRN Administration Pain Warfarin Sodium 6 mg 03/18/20 17:00 03/18/20 15:37 Coumadin PO 6 mg 1700 [facility] Administration Zinc Sulfate 220 mg 03/18/20 12:00 03/19/20 11:58 Zinc Sulfate PO 220 mg 1200 [facility] Administration - Exam General Appearance: NAD, awake alert Eye: PERRL, anicteric sclera ENT: normocephalic atraumatic, moist mucosa Neck: supple, symmetric, no lymphadenopathy Heart: no gallops, no rubs, murmur present (Aortic stenosis) Respiratory: no wheezes, no ronchi, normal chest expansion, no tachypnea, rales Respiratory - other findings: faint lung sounds secondary to body habitus Gastrointestinal: soft, non-tender, no guarding, no rigidity Extremities - other findings: 4+ LE edema, dressing clean and dry Skin - other findings: see wound care pictures of LE for details Neurological: cranial nerve grossly intact, no focal deficits Musculoskeletal: generalized weakness Psychiatric: flat affect, somnolent Hosp A/P (1) Acute on chronic diastolic CHF (congestive heart failure) Code(s): I50.33 - ACUTE ON CHRONIC DIASTOLIC (CONGESTIVE) HEART FAILURE Status : Acute (2) CKD (chronic kidney disease), stage III Code(s): N18.3 - CHRONIC KIDNEY DISEASE, STAGE 3 (MODERATE) Status: Acute (3) Cellulitis of right lower extremity Code(s): L03.115 - CELLULITIS OF RIGHT LOWER LIMB Status: Acute (4) Anemia, macrocytic Code(s): D53.9 - NUTRITIONAL ANEMIA, UNSPECIFIED Status: Chronic (5) Anxiety and depression Code(s): F41.9 - ANXIETY DISORDER, UNSPECIFIED; F32.9 - MAJOR DEPRESSIVE DISORDER, SINGLE EPISODE, UNSPECIFIED Status: Chronic (6) CKD (chronic kidney disease) stage 4, GFR 15-29 ml/min Code(s): N18.4 - CHRONIC KIDNEY DISEASE, STAGE 4 (SEVERE) Status: Chronic (7) Chronic acquired lymphedema Code(s): I89.0 - LYMPHEDEMA, NOT ELSEWHERE CLASSIFIED Status: Chronic (8) Chronic kidney disease (CKD) Code(s): N18.9 - CHRONIC KIDNEY DISEASE, UNSPECIFIED Status: Chronic Qualifiers: Chronic kidney disease stage: stage 4 (severe) Qualified Code(s): N18.4 - Chronic kidney disease, stage 4 (severe) (9) Dyslipidemia Code(s): E78.5 - HYPERLIPIDEMIA, UNSPECIFIED Status: Chronic (10) History of arthroplasty of right knee Code(s): Z96.651 - PRESENCE OF RIGHT ARTIFICIAL KNEE JOINT Status: Chronic (11) History of deep venous thrombosis or pulmonary embolus Code(s): GMO3135 - Status: Chronic (12) Hypertension Code(s): I10 - ESSENTIAL (PRIMARY) HYPERTENSION Status: Chronic Qualifiers: Hypertension type: essential hypertension Qualified Code(s): I10 - Essential (primary) hypertension (13) Leg wound, left Code(s): S81.802A - UNSPECIFIED OPEN WOUND, LEFT LOWER LEG, INITIAL ENCOUNTER Status: Chronic (14) FAUSTINO (obstructive sleep apnea) Code(s): G47.33 - OBSTRUCTIVE SLEEP APNEA (ADULT) (PEDIATRIC) Status: Chronic (15) Obesity (BMI 30-39.9) Code(s): E66.9 - OBESITY, UNSPECIFIED Status: Chronic (16) Physical deconditioning Code(s): R53.81 - OTHER MALAISE Status: Chronic (17) Acute kidney injury Code(s): N17.9 - ACUTE KIDNEY FAILURE, UNSPECIFIED Status: Acute - Plan Plan: medical unit with telemetry cardiology consultation, recommendations appreciated nephrology consultation, recommendations appreciated infectious disease consultation, recommendations appreciated wound care consultation, recommendations appreciated Echo with reduced EF of 35% and Mod-Sev IV Lasix BID fluid restrictions patient with roughly 30 pounds of weight gain since November of this year, this is despite good follow up with her outpatient core dipper ALEJANDRA on CKD chronic antibiotic therapy, will continue and ask for input from Dr. Cai continue other home medications is able blood pressure control blood sugar control GI prophylaxis DVT prophylaxis Disposition: Greater than 35 minutes spent with patient and daughter at bedside , time was given for questions, all answered in detail.
--- NOTE | 2020-03-19 14:13 | PRG ---
DATE OF SERVICE: 03/19/2020 SUBJECTIVE: Patient was seen and examined at bedside and overnight events noted. Patient denies shortness of breath or cramps or chest pain or palpitation. No Nausea or vomiting or diarrhea or fever or chills. OBJECTIVE: GENERAL: This is a well-built elderly female, in no apparent distress. VITAL SIGNS: Temperature 97.5, pulse 77, respiratory rate 18, and blood pressure Musculoskeletal : No tenderness, No edema HEENT: Atraumatic normocephalic Neck: Supple Cardiovascular: S1S2 heard, Rate and rhythm regular Respiratory: Clear to auscultation Gastrointestinal: Abdomen is soft Dermatologic : No skin rash Neurologic: Alert and awake and oriented X3 No focal neurologic deficits. Moving all the extremities. Psychiatric: Mood and affect normal LABORATORY DATA: Potassium 3.0, BUN is 80, creatinine is 1.4. ASSESSMENT AND PLAN: 1. Acute kidney injury on chronic kidney disease, stage 3, stable. 2. Hypokalemia. Continue supplements. 3. Metabolic alkalosis, chronic edema, lymphedema. 4. Cardiorenal syndrome. 5. Replace potassium and monitor labs. Job ID: [id number] MTDD
[2020-03-19] MEDS: Carvedilol 3.125 MG TAB PO SCH (17:08)
[2020-03-19] MEDS: Warfarin Sodium 3 MG TAB PO SCH (17:08)
[2020-03-19] MEDS: cloNIDine 0.1 MG TAB PO PRN (18:05)
[2020-03-19] MEDS ORDERED: hydrALAZINE 20 MG/ML VIAL ONE ×2 (18:45→18:46)
[2020-03-19] MEDS ORDERED: hydrALAZINE 20 MG/ML VIAL SLOW IVP SCH (18:45)
[2020-03-19] MEDS: Melatonin 3 MG TAB PO SCH (21:39)
[2020-03-19] MEDS: Estradiol 0.01% Vaginal Cream 42.5 gm Tube VAG SCH (21:39)
[2020-03-19] MEDS: HYDROcodone/Acetaminophen 10/325 mg Tablet PO PRN (21:45)
[2020-03-20] MEDS: cloNIDine 0.1 MG TAB PO PRN ×2 (04:00→16:37)
[2020-03-20 04:19] LABS: INR-International Normal Ratio 1.5; Prothrombin Time 18.2 sec (12.0-14.7)
[2020-03-20 04:35] LABS: Anion Gap 16 mmol/L (10-20); BUN (Urea Nitrogen) 76 mg/dL (9.8-20.1); Calc. Creatinine Clearance 43 mL/min (70-130); Calcium 10.4 mg/dL (7.8-10.44); Carbon Dioxide 36 mmol/L (23-31); Chloride 94 mmol/L (98-107); Estimated GFR-MDRD 29; Glucose 114 mg/dL (83-110); Potassium 3.2 mmol/L (3.5-5.1); Sodium 143 mmol/L (136-145)
[2020-03-20] MEDS: Furosemide 40 MG/4 ML VIAL SLOW IVP SCH ×2 (06:12→15:47)
[2020-03-20] MEDS: Allopurinol 100 MG TAB PO SCH (08:40)
[2020-03-20] MEDS: Carvedilol 3.125 MG TAB PO SCH ×2 (08:40→16:39)
[2020-03-20] MEDS: Cephalexin 250 MG CAP PO SCH ×2 (08:41→21:00)
[2020-03-20] MEDS: Ferrous Sulfate 325 MG TAB PO SCH ×2 (08:41→20:59)
[2020-03-20] MEDS: Docusate 100 MG CAP PO SCH ×2 (08:41→20:58)
[2020-03-20] MEDS: hydrALAZINE 25 MG TAB PO SCH ×3 (08:41→20:59)
[2020-03-20] MEDS: Ascorbic Acid 500 mg Chewable Tablet PO SCH (08:41)
[2020-03-20] MEDS: Gabapentin 100 MG CAP PO SCH ×2 (08:41→20:58)
[2020-03-20] MEDS: Doxycycline 100 MG CAP PO SCH (08:41)
[2020-03-20] MEDS: Cyanocobalamin (Vitamin B-12) 1,000 MCG TAB PO SCH (08:41)
[2020-03-20] MEDS: DULoxetine 60 MG CAP PO SCH (08:41)
[2020-03-20] MEDS: Lactinex Tablet PO SCH ×2 (08:42→20:57)
[2020-03-20] MEDS: Potassium Chloride 20 MEQ TAB PO SCH ×2 (08:42→20:58)
[2020-03-20] MEDS: Magnesium Oxide 400 MG TAB PO SCH (08:42)
[2020-03-20] MEDS: Multivit, Therapeutic 1 TAB PO SCH (08:42)
[2020-03-20] MEDS: Fluticasone Propionate Nasal Spray 16 gm Bottle NASAL SCH (08:43)
[2020-03-20] MEDS ORDERED: Metolazone 5 MG TAB PO SCH (09:00)
[2020-03-20] MEDS ORDERED: Enoxaparin Sodium 40 MG/0.4 ML SYRINGE SC SCH (10:15)
--- NOTE | 2020-03-20 10:42 | PRG ---
DATE OF SERVICE: 03/20/2020 SUBJECTIVE: Ms. Trinidad is comfortable. She is not having difficulty breathing. OBJECTIVE: VITAL SIGNS: Her blood pressure is very high however, 207 systolic earlier, now it is 170 systolic. Pulse 70. LUNGS: Clear. CARDIAC: Normal S1, normal S2. ABDOMEN: Obese, nontender. EXTREMITIES: There is moderate to severe edema. DIAGNOSTIC STUDIES: Echocardiogram is reported as an ejection fraction of 35% to 40%, which is lower than previously. I will review these records. The aortic valve peak gradient is 26 mmHg, mean gradient 15. Dr. Luke reported this is moderate to severe aortic stenosis, but I suspect based on these gradients, it is more moderate. ASSESSMENT: 1. Congestive heart failure, systolic and diastolic combined. 2. Uncontrolled hypertension. 3. Renal failure, which is currently stage IV, with an estimated GFR of 29. PLAN: 1. Give her metolazone one dose. 2. Continue diuretics intravenously. 3. She has had worsening of her renal failure in the past with EVELYN inhibitors. 4. Continue hydralazine and carvedilol. 5. We will continue to follow with you. Job ID: [id number]
[2020-03-20] MEDS: Zinc Sulfate 220 MG CAP PO SCH (11:39)
--- NOTE | 2020-03-20 12:22 | PRG ---
DATE OF SERVICE: SUBJECTIVE: An 84-year-old female being seen for acute kidney injury. The patient denies nausea, vomiting, or chest pain. PHYSICAL EXAMINATION: GENERAL: The patient is awake and alert. VITAL SIGNS: Afebrile, pulse 73, breathing at 16, blood pressure 178/76. HEENT: Head normocephalic and atraumatic. Eyes intact, no ulcers. Nose intact, no ulcers. Ears intact, no ulcers. NECK: Supple. No JVD. CHEST: Symmetrical and clear. CARDIOVASCULAR: Shows S1 and S2, no rub, no murmur. GASTROINTESTINAL: Abdomen is soft, bowel sounds positive. EXTREMITIES: Show no edema or ulcers. SKIN: Shows no rash or petechiae. MUSCULOSKELETAL: Shows no joint swelling or stiffness. GENITOURINARY: Shows no Schroeder or CVA tenderness. NEUROLOGIC: Motor intact. Cranial nerves intact. LABORATORY DATA: Reviewed. ASSESSMENT AND PLAN: 1. Chronic kidney disease, stage 4, stable. 2. Hypertension, stable. 3. Acute kidney injury. Creatinine range. 4. Congestive heart failure, management per Cardiology. I will sign off on this patient. Please reconsult as needed. Job ID: [id number]
--- NOTE | 2020-03-20 14:25 | PDOC.HOSPP ---
- Subjective Encounter Date: 03/20/20 Encounter Time: 10:45 Subjective: breathing better, ate her breakfast well this am daughter at bedside - Objective Vital Signs & Weight: Vital Signs (12 hours) Temp Pulse Resp BP BP BP Pulse Ox 03/20/20 09:50 178/76 H 03/20/20 09:30 186/79 H 03/20/20 08:41 73 207/98 H 03/20/20 08:25 98.7 F 73 18 207/98 H 92 L 03/20/20 08:00 92 L 03/20/20 04:31 92 L 03/20/20 04:00 170/52 H 03/20/20 03:31 98.6 F 79 18 170/52 H 92 L Weight Admit Weight 236 lb Weight 235 lb 12.8 oz I&O: 03/19/20 03/20/20 03/21/20 06:59 06:59 06:59 Intake Total 3527 1305 Output Total 1512 0093 [id number] Result Diagrams: 03/19/20 09:01 03/20/20 03:40 Hospitalist ROS - Medication Medications: Active Medications Generic Name Dose Route Start Last Admin Trade Name Freq PRN Reason Stop Dose Admin Acetaminophen 500 mg 03/18/20 00:21 03/19/20 10:34 Tylenol PO 500 mg Q4HR PRN Administration Pain Hydrocodone Bitart/Acetaminophen 1 tab 03/18/20 00:21 03/19/20 21:45 [place] 10/325 PO 1 tab Q4HR PRN Administration Moderate Pain (4-6) Acidophilus 1 tab 03/18/20 09:00 03/20/20 08:42 Floranex PO 1 tab BID [facility] Administration Allopurinol 100 mg 03/18/20 09:00 03/20/20 08:40 Zyloprim PO 100 mg 0900 [facility] Administration Ascorbic Acid 1,000 mg 03/18/20 09:00 03/20/20 08:41 Vitamin C PO 1,000 mg DAILY [facility] Administration Carvedilol 3.125 mg 03/19/20 17:00 03/20/20 08:40 Coreg PO 3.125 mg BID-WM [facility] Administration Cephalexin 250 mg 03/19/20 09:00 03/20/20 08:41 Keflex PO 250 mg BID [facility] Administration Clonidine 0.1 mg 03/17/20 23:54 03/20/20 04:00 Catapres PO 0.1 mg Q8H PRN Administration SBP GREATER THAN 160 Cyanocobalamin 1,000 mcg 03/18/20 09:00 03/20/20 08:41 Vitamin B-12 PO 1,000 mcg DAILY [facility] Administration Docusate Sodium 100 mg 03/18/20 09:00 03/20/20 08:41 Colace PO 100 mg BID [facility] Administration Doxycycline Hyclate 100 mg 03/19/20 09:00 03/20/20 08:41 Vibramycin PO 100 mg DAILY [facility] Administration Duloxetine HCl 60 mg 03/18/20 09:00 03/20/20 08:41 Cymbalta PO 60 mg 0900 [facility] Administration Estradiol 2 gm 03/18/20 21:00 03/19/20 21:39 Estrace 0.01% Vaginal Cream VAG 2 gm 2100 [facility] Administration Ferrous Sulfate 325 mg 03/18/20 09:00 03/20/20 08:41 Feosol PO 325 mg BID [facility] Administration Fluticasone Propionate 0 gm 03/18/20 09:00 03/20/20 08:43 Flonase Nasal [place] NASAL 2 spr DAILY [facility] Administration Furosemide 40 mg 03/18/20 06:00 03/20/20 06:12 Lasix SLOW IVP 40 mg 0600,1400 [facility] Administration Gabapentin 200 mg 03/18/20 21:00 03/19/20 21:38 Neurontin PO 200 mg 2100 [facility] Administration Gabapentin 100 mg 03/18/20 09:00 03/20/20 08:41 Neurontin PO 100 mg 0900 [facility] Administration Hydralazine HCl 50 mg 03/19/20 21:00 03/20/20 08:41 Apresoline PO 50 mg TID [facility] Administration Magnesium Oxide 400 mg 03/18/20 09:00 03/20/20 08:42 Magnesium Oxide PO 400 mg DAILY [facility] Administration Melatonin 9 mg 03/18/20 21:00 03/19/20 21:39 Melatonin PO 9 mg HS [facility] Administration Multivitamins 1 tab 03/18/20 09:00 03/20/20 08:42 Theragran PO 1 tab DAILY [facility] Administration Nystatin 0 gm 03/18/20 08:04 03/19/20 21:50 Mycostatin Powder TOP 1 applic BID PRN Administration yeast infection Pantoprazole Sodium 40 mg 03/18/20 09:00 03/20/20 08:42 Protonix PO 40 mg 0900 [facility] Administration Potassium Chloride 40 meq 03/19/20 21:00 03/20/20 08:42 K-Dur PO 03/20/20 21:01 40 meq BID [facility] Administration Sodium Chloride 10 ml 03/18/20 09:00 03/20/20 08:43 Flush - Normal Saline IVF 10 ml Q12HR [facility] Administration Sodium Chloride 10 ml 03/18/20 08:08 03/20/20 06:13 Flush - Normal Saline IVF 10 ml PRN PRN Administration Saline Flush Tramadol HCl 50 mg 03/18/20 08:04 03/19/20 10:34 Ultram PO 50 mg Q4H PRN Administration Pain Zinc Sulfate 220 mg 03/18/20 12:00 03/20/20 11:39 Zinc Sulfate PO 220 mg 1200 [facility] Administration - Exam General Appearance: awake alert Eye: PERRL, anicteric sclera ENT: no oropharyngeal lesions, moist mucosa Neck: supple, no JVD Heart: no gallops, murmur present Respiratory: no wheezes, no ronchi, rales Gastrointestinal: soft, non-tender, non-distended, normal bowel sounds Extremities: no cyanosis, 2+ LE edema Neurological: cranial nerve grossly intact, no focal deficits Hosp A/P (1) Acute on chronic diastolic CHF (congestive heart failure) Code(s): I50.33 - ACUTE ON CHRONIC DIASTOLIC (CONGESTIVE) HEART FAILURE Status : Acute (2) Acute kidney injury Code(s): N17.9 - ACUTE KIDNEY FAILURE, UNSPECIFIED Status: Acute (3) Anemia, macrocytic Code(s): D53.9 - NUTRITIONAL ANEMIA, UNSPECIFIED Status: Chronic (4) Anxiety and depression Code(s): F41.9 - ANXIETY DISORDER, UNSPECIFIED; F32.9 - MAJOR DEPRESSIVE DISORDER, SINGLE EPISODE, UNSPECIFIED Status: Chronic (5) CKD (chronic kidney disease) stage 4, GFR 15-29 ml/min Code(s): N18.4 - CHRONIC KIDNEY DISEASE, STAGE 4 (SEVERE) Status: Chronic (6) Chronic acquired lymphedema Code(s): I89.0 - LYMPHEDEMA, NOT ELSEWHERE CLASSIFIED Status: Chronic (7) Dyslipidemia Code(s): E78.5 - HYPERLIPIDEMIA, UNSPECIFIED Status: Chronic (8) Hypertension Code(s): I10 - ESSENTIAL (PRIMARY) HYPERTENSION Status: Chronic Qualifiers: Hypertension type: essential hypertension Qualified Code(s): I10 - Essential (primary) hypertension (9) FAUSTINO (obstructive sleep apnea) Code(s): G47.33 - OBSTRUCTIVE SLEEP APNEA (ADULT) (PEDIATRIC) Status: Chronic (10) Obesity (BMI 30-39.9) Code(s): E66.9 - OBESITY, UNSPECIFIED Status: Chronic (11) Physical deconditioning Code(s): R53.81 - OTHER MALAISE Status: Chronic - Plan gentle diuresis, got 1 dose of metolazone this am renal function is holding up d/w daughter at bedside is on keflex, doxy, coreg, coumadin, hydralazine, neurontin and cymbalta hemostable to mobilize as tolerated
[2020-03-20] MEDS: Warfarin Sodium 7.5 MG TAB PO SCH (16:40)
[2020-03-20] MEDS: Melatonin 3 MG TAB PO SCH (20:57)
[2020-03-20] MEDS: Estradiol 0.01% Vaginal Cream 42.5 gm Tube VAG SCH (21:00)
[2020-03-21] MEDS: cloNIDine 0.1 MG TAB PO PRN ×2 (04:12→11:29)
[2020-03-21] MEDS: HYDROcodone/Acetaminophen 10/325 mg Tablet PO PRN ×2 (04:12→21:28)
[2020-03-21 04:29] LABS: BUN (Urea Nitrogen) 84 mg/dL (9.8-20.1); Calc. Creatinine Clearance 40 mL/min (70-130); Calcium 11.1 mg/dL (7.8-10.44); Estimated GFR-MDRD 28; Glucose 140 mg/dL (83-110)
[2020-03-21 04:30] LABS: INR-International Normal Ratio 1.5; Prothrombin Time 18.3 sec (12.0-14.7)
[2020-03-21 04:38] LABS: Anion Gap 19 mmol/L (10-20); Carbon Dioxide 37 mmol/L (23-31); Chloride 92 mmol/L (98-107); Potassium 3.1 mmol/L (3.5-5.1); Sodium 145 mmol/L (136-145)
[2020-03-21] MEDS ORDERED: Potassium Chloride 20 MEQ TAB PO SCH ×2 (05:00→17:00)
[2020-03-21] MEDS: Furosemide 40 MG/4 ML VIAL SLOW IVP SCH ×2 (05:03→14:04)
[2020-03-21] MEDS: hydrALAZINE 20 MG/ML VIAL SLOW IVP PRN ×3 (06:15→18:18)
[2020-03-21] MEDS ORDERED: Enoxaparin Sodium 40 MG/0.4 ML SYRINGE SC SCH (09:00)
[2020-03-21] MEDS: Magnesium Oxide 400 MG TAB PO SCH (09:25)
[2020-03-21] MEDS: Gabapentin 100 MG CAP PO SCH ×2 (09:25→21:29)
[2020-03-21] MEDS: Acetaminophen 500 MG TAB PO PRN (09:25)
[2020-03-21] MEDS: traMADol HCl 50 MG TAB PO PRN (09:26)
[2020-03-21] MEDS: Ascorbic Acid 500 mg Chewable Tablet PO SCH (09:27)
[2020-03-21] MEDS: Lactinex Tablet PO SCH ×2 (09:27→21:30)
[2020-03-21] MEDS: DULoxetine 60 MG CAP PO SCH (09:27)
[2020-03-21] MEDS: Cephalexin 250 MG CAP PO SCH ×2 (09:27→21:29)
[2020-03-21] MEDS: hydrALAZINE 25 MG TAB PO SCH ×3 (09:27→21:30)
[2020-03-21] MEDS: Multivit, Therapeutic 1 TAB PO SCH (09:27)
[2020-03-21] MEDS: Ferrous Sulfate 325 MG TAB PO SCH ×2 (09:27→21:30)
[2020-03-21] MEDS: Doxycycline 100 MG CAP PO SCH (09:27)
[2020-03-21] MEDS: Allopurinol 100 MG TAB PO SCH (09:27)
[2020-03-21] MEDS: Cyanocobalamin (Vitamin B-12) 1,000 MCG TAB PO SCH (09:27)
[2020-03-21] MEDS: Fluticasone Propionate Nasal Spray 16 gm Bottle NASAL SCH (09:28)
[2020-03-21] MEDS: Carvedilol 3.125 MG TAB PO SCH (09:28)
[2020-03-21] MEDS: Docusate 100 MG CAP PO SCH ×2 (09:28→21:30)
--- NOTE | 2020-03-21 11:07 | PRG ---
DATE OF SERVICE: 03/21/2020 SUBJECTIVE: An 84-year-old female being seen for acute kidney injury. The patient denies any nausea, vomiting, or chest pain. OBJECTIVE: GENERAL: The patient is awake and alert. VITAL SIGNS: Afebrile, pulse 81, breathing 16, and blood pressure 166/71. HEENT: Head normocephalic and atraumatic. Eyes intact, no ulcers. Nose intact, no ulcers. Ears intact, no ulcers. NECK: Supple. No JVD. CHEST: Symmetrical and clear. CARDIOVASCULAR: Shows S1 and S2, no rub, no murmur. GASTROINTESTINAL: Abdomen is soft, bowel sounds positive. EXTREMITIES: Show no edema or ulcers. SKIN: Shows no rash or petechiae. MUSCULOSKELETAL: Shows no joint swelling or stiffness. GENITOURINARY: Shows no Schroeder or CVA tenderness. NEUROLOGIC: Motor intact. Cranial nerves intact. LABORATORY DATA: Hemoglobin 13.3. Creatinine 1.7. ASSESSMENT AND PLAN: 1. Acute kidney injury. 2. Chronic kidney disease due to cardiorenal syndrome. Chronic kidney disease, stage 4, stable. 3. Hypertension, stable. 4. Anemia, stable. 5. Hypokalemia, recommend 40 mEq of potassium. No indication for dialysis. The patient has chronic lymphedema. Please use diuretics judiciously. 6. Hypercalcemia, we would recommend checking a PTH and I would recommend primary care team to evaluate for malignant causes of hypercalcemia as well. Job ID: [id number]
[2020-03-21] MEDS: Zinc Sulfate 220 MG CAP PO SCH (11:29)
--- NOTE | 2020-03-21 12:14 | PDOC.HOSPP ---
- Subjective Encounter Date: 03/21/20 Encounter Time: 09:15 Subjective: had breakfast and is trying to sleep daughter mentions she had rough night with very minimal sleep - Objective Vital Signs & Weight: Vital Signs (12 hours) Temp Pulse Resp BP BP BP BP 03/21/20 11:29 176/79 H 03/21/20 11:25 99.3 F 74 20 178/81 H 03/21/20 09:46 99.6 F 81 20 03/21/20 09:27 77 166/71 H 03/21/20 07:30 100.0 F H 77 20 166/71 H 03/21/20 07:03 03/21/20 06:15 73 203/91 H 03/21/20 03:56 99.8 F H 73 18 182/82 H Pulse Ox 03/21/20 11:29 03/21/20 11:25 94 L 03/21/20 09:46 97 03/21/20 09:27 97 03/21/20 07:30 94 L 03/21/20 07:03 96 03/21/20 06:15 03/21/20 03:56 96 Weight Admit Weight 236 lb Weight 231 lb 14.4 oz I&O: 03/20/20 03/21/20 03/22/20 06:59 06:59 06:59 Intake Total 1305 1254 Output Total 8805 3412 Balance -0346 -8469 Result Diagrams: 03/19/20 09:01 03/21/20 03:31 Hospitalist ROS - Medication Medications: Active Medications Generic Name Dose Route Start Last Admin Trade Name Freq PRN Reason Stop Dose Admin Acetaminophen 500 mg 03/18/20 00:21 03/21/20 09:25 Tylenol PO 500 mg Q4HR PRN Administration Mild Pain (1-3) Hydrocodone Bitart/Acetaminophen 1 tab 03/18/20 00:21 03/21/20 04:12 [place] 10/325 PO 1 tab Q4HR PRN Administration Moderate Pain (4-6) Acidophilus 1 tab 03/18/20 09:00 03/21/20 09:27 Floranex PO 1 tab BID CODY Administration Allopurinol 100 mg 03/18/20 09:00 03/21/20 09:27 Zyloprim PO 100 mg 0900 CODY Administration Ascorbic Acid 1,000 mg 03/18/20 09:00 03/21/20 09:27 Vitamin C PO 1,000 mg DAILY CODY Administration Carvedilol 3.125 mg 03/19/20 17:00 03/21/20 09:28 Coreg PO 3.125 mg BID-WM CODY Administration Cephalexin 250 mg 03/19/20 09:00 03/21/20 09:27 Keflex PO 250 mg BID CODY Administration Clonidine 0.1 mg 03/17/20 23:54 03/21/20 11:29 Catapres PO 0.1 mg Q8H PRN Administration SBP GREATER THAN 160 Cyanocobalamin 1,000 mcg 03/18/20 09:00 03/21/20 09:27 Vitamin B-12 PO 1,000 mcg DAILY CODY Administration Docusate Sodium 100 mg 03/18/20 09:00 03/21/20 09:28 Colace PO 100 mg BID CODY Administration Doxycycline Hyclate 100 mg 03/19/20 09:00 03/21/20 09:27 Vibramycin PO 100 mg DAILY CODY Administration Duloxetine HCl 60 mg 03/18/20 09:00 03/21/20 09:27 Cymbalta PO 60 mg 0900 CODY Administration Estradiol 2 gm 03/18/20 21:00 03/20/20 21:00 Estrace 0.01% Vaginal Cream VAG 2 gm 2100 CODY Administration Ferrous Sulfate 325 mg 03/18/20 09:00 03/21/20 09:27 Feosol PO 325 mg BID CODY Administration Fluticasone Propionate 0 gm 03/18/20 09:00 03/21/20 09:28 Flonase Nasal [place] NASAL 2 spr DAILY CODY Administration Furosemide 40 mg 03/18/20 06:00 03/21/20 05:03 Lasix SLOW IVP 40 mg 0600,1400 CODY Administration Gabapentin 200 mg 03/18/20 21:00 03/20/20 20:58 Neurontin PO 200 mg 2100 CODY Administration Gabapentin 100 mg 03/18/20 09:00 03/21/20 09:25 Neurontin PO 100 mg 0900 CODY Administration Hydralazine HCl 50 mg 03/19/20 21:00 03/21/20 09:27 Apresoline PO 50 mg TID CODY Administration Hydralazine HCl 10 mg 03/21/20 06:12 03/21/20 06:15 Apresoline SLOW IVP 10 mg Q6H PRN Administration SBP GREATER THAN 160 Magnesium Oxide 400 mg 03/18/20 09:00 03/21/20 09:25 Magnesium Oxide PO 400 mg DAILY CODY Administration Melatonin 9 mg 03/18/20 21:00 03/20/20 20:57 Melatonin PO 9 mg HS CODY Administration Multivitamins 1 tab 03/18/20 09:00 03/21/20 09:27 Theragran PO 1 tab DAILY CODY Administration Nystatin 0 gm 03/18/20 08:04 03/19/20 21:50 Mycostatin Powder TOP 1 applic BID PRN Administration yeast infection Pantoprazole Sodium 40 mg 03/18/20 09:00 03/21/20 09:27 Protonix PO 40 mg 0900 CODY Administration Sodium Chloride 10 ml 03/18/20 09:00 03/21/20 09:29 Flush - Normal Saline IVF 10 ml Q12HR CODY Administration Sodium Chloride 10 ml 03/18/20 08:08 03/20/20 06:13 Flush - Normal Saline IVF 10 ml PRN PRN Administration Saline Flush Warfarin Sodium 7.5 mg 03/20/20 17:00 03/20/20 16:40 Coumadin PO 7.5 mg 1700 CODY Administration Zinc Sulfate 220 mg 03/18/20 12:00 03/21/20 11:29 Zinc Sulfate PO 220 mg 1200 CODY Administration - Exam General Appearance: awake alert Eye: PERRL, anicteric sclera ENT: no oropharyngeal lesions, dry oral mucosa Neck: supple, no JVD Heart: RRR, murmur present Respiratory: no wheezes, no rales Gastrointestinal: soft, non-tender, non-distended, normal bowel sounds Extremities: no cyanosis, 1+ LE edema Neurological: cranial nerve grossly intact, no focal deficits Psychiatric: normal affect, A&O x 3 Hosp A/P (1) Acute on chronic diastolic CHF (congestive heart failure) Code(s): I50.33 - ACUTE ON CHRONIC DIASTOLIC (CONGESTIVE) HEART FAILURE Status : Acute (2) Acute kidney injury Code(s): N17.9 - ACUTE KIDNEY FAILURE, UNSPECIFIED Status: Acute (3) Anemia, macrocytic Code(s): D53.9 - NUTRITIONAL ANEMIA, UNSPECIFIED Status: Chronic (4) Anxiety and depression Code(s): F41.9 - ANXIETY DISORDER, UNSPECIFIED; F32.9 - MAJOR DEPRESSIVE DISORDER, SINGLE EPISODE, UNSPECIFIED Status: Chronic (5) CKD (chronic kidney disease) stage 4, GFR 15-29 ml/min Code(s): N18.4 - CHRONIC KIDNEY DISEASE, STAGE 4 (SEVERE) Status: Chronic (6) Chronic acquired lymphedema Code(s): I89.0 - LYMPHEDEMA, NOT ELSEWHERE CLASSIFIED Status: Chronic (7) Dyslipidemia Code(s): E78.5 - HYPERLIPIDEMIA, UNSPECIFIED Status: Chronic (8) Hypertension Code(s): I10 - ESSENTIAL (PRIMARY) HYPERTENSION Status: Chronic Qualifiers: Hypertension type: essential hypertension Qualified Code(s): I10 - Essential (primary) hypertension (9) FAUSTINO (obstructive sleep apnea) Code(s): G47.33 - OBSTRUCTIVE SLEEP APNEA (ADULT) (PEDIATRIC) Status: Chronic (10) Obesity (BMI 30-39.9) Code(s): E66.9 - OBESITY, UNSPECIFIED Status: Chronic (11) Physical deconditioning Code(s): R53.81 - OTHER MALAISE Status: Chronic - Plan gentle diuresis renal function is holding up, inr is 1.5 (on home dose coumadin) d/w daughter at bedside is on keflex, doxy, coreg, coumadin, hydralazine, neurontin and cymbalta hemostable to mobilize as tolerated dc planning if no further fever.
--- NOTE | 2020-03-21 15:16 | PRG ---
DATE OF SERVICE: 03/21/2020 SUBJECTIVE: Ms. Trinidad is breathing better. Her edema is also reduced, but she is still hypertensive. OBJECTIVE: VITAL SIGNS: Blood pressure 190/80 and pulse 70. LUNGS: Clear. CARDIAC: Normal S1 and S2. ABDOMEN: Obese and nontender. EXTREMITIES: There is reduced edema. PERTINENT LABORATORY DATA: Her creatinine is up to 1.75, GFR is 28, calcium with diuresis is back up to 11.1. Most recent BNP 1709. Echocardiogram, I reviewed the ejection fraction in my interpretation is approximately 40% with [id number] aortic stenosis, but not severe, gradients are relatively low. ASSESSMENT: 1. Congestive heart failure, systolic and diastolic mixed, predominantly diastolic, but now with some systolic component as well. 2. Hypertension. 3. Renal insufficiency, stage 4. 4. Hypercalcemia. I suspect that is probably related to the diuretics, but apparently her PTH is also abnormal. Overall, the patient is gradually worsening in terms of her heart failure. She previously was on angiotensin receptor kim, but later had to be taken off due to renal insufficiency. I think it is worth a try with Entresto. Otherwise, the trend seems to be worsening heart failure in the last year. We will try Entresto tomorrow and monitor her creatinine carefully. In addition, she is iron deficient. Her ferritin level was 71 on a blood test that the daughter brought to the hospital. I will go and give her intravenous iron. Job ID: [id number]
[2020-03-21] MEDS ORDERED: Iron, Sodium Ferric Gluconate 250 MG in Sodium Chloride 0.9% 100 ML IVPB SCH (16:00)
[2020-03-21] MEDS: Warfarin Sodium 7.5 MG TAB PO SCH (16:23)
[2020-03-21] MEDS: Carvedilol 6.25 MG TAB PO SCH (16:23)
[2020-03-21] MEDS: Iron, Sodium Ferric Gluconate 250 MG in Sodium Chloride 0.9% 100 ML IVPB SCH (17:56)
[2020-03-21] MEDS: Melatonin 3 MG TAB PO SCH (21:29)
[2020-03-21] MEDS: Estradiol 0.01% Vaginal Cream 42.5 gm Tube VAG SCH (21:30)
[2020-03-22] MEDS: hydrALAZINE 20 MG/ML VIAL SLOW IVP PRN (02:34)
[2020-03-22 04:20] LABS: INR-International Normal Ratio 1.6
[2020-03-22 04:39] LABS: BUN (Urea Nitrogen) 98 mg/dL (9.8-20.1); Calc. Creatinine Clearance 37 mL/min (70-130); Calcium 10.5 mg/dL (7.8-10.44); Estimated GFR-MDRD 25; Glucose 121 mg/dL (83-110); Magnesium 2.2 mg/dL (1.6-2.6)
[2020-03-22 04:48] LABS: Anion Gap 22 mmol/L (10-20); Carbon Dioxide 35 mmol/L (23-31); Chloride 93 mmol/L (98-107); Sodium 147 mmol/L (136-145)
[2020-03-22 04:53] LABS: Potassium 2.9 mmol/L (3.5-5.1)
[2020-03-22] MEDS ORDERED: Potassium Chloride 40 MEQ in Sodium Chloride 0.9% 250 ML 250 ML IVPB SCH (05:30)
[2020-03-22] MEDS ORDERED: Furosemide 20 MG/2 ML VIAL SLOW IVP SCH (06:00)
[2020-03-22] MEDS ORDERED: Potassium Chloride 20 MEQ TAB PO SCH ×2 (06:30→17:00)
[2020-03-22] MEDS: Allopurinol 100 MG TAB PO SCH (08:24)
[2020-03-22] MEDS: Carvedilol 6.25 MG TAB PO SCH ×2 (08:24→16:07)
[2020-03-22] MEDS: Iron, Sodium Ferric Gluconate 250 MG in Sodium Chloride 0.9% 100 ML IVPB SCH (08:24)
[2020-03-22] MEDS: Ascorbic Acid 500 mg Chewable Tablet PO SCH (08:24)
[2020-03-22] MEDS: Ferrous Sulfate 325 MG TAB PO SCH ×2 (08:25→21:23)
[2020-03-22] MEDS: Magnesium Oxide 400 MG TAB PO SCH (08:25)
[2020-03-22] MEDS: Doxycycline 100 MG CAP PO SCH (08:25)
[2020-03-22] MEDS: DULoxetine 60 MG CAP PO SCH (08:25)
[2020-03-22] MEDS: Multivit, Therapeutic 1 TAB PO SCH (08:25)
[2020-03-22] MEDS: Cyanocobalamin (Vitamin B-12) 1,000 MCG TAB PO SCH (08:25)
[2020-03-22] MEDS: Lactinex Tablet PO SCH ×2 (08:25→21:23)
[2020-03-22] MEDS: Cephalexin 250 MG CAP PO SCH ×2 (08:25→21:23)
[2020-03-22] MEDS: Gabapentin 100 MG CAP PO SCH ×2 (08:25→21:22)
[2020-03-22] MEDS: Docusate 100 MG CAP PO SCH ×2 (08:25→21:23)
[2020-03-22] MEDS: hydrALAZINE 25 MG TAB PO SCH ×3 (08:26→21:22)
[2020-03-22] MEDS: Fluticasone Propionate Nasal Spray 16 gm Bottle NASAL SCH (08:26)
[2020-03-22 09:56] LABS: Hemoglobin 13.7 g/dL (12.0-16.0); Platelet Count 312 thou/uL (130-400)
[2020-03-22] MEDS ORDERED: Iron, Sodium Ferric Gluconate 250 MG in Sodium Chloride 0.9% 100 ML IVPB SCH (10:00)
--- NOTE | 2020-03-22 10:25 | PRG ---
DATE OF SERVICE: 03/22/2020 SUBJECTIVE: Ms. Trinidad says she feels better. Her breathing is improved, looks more comfortable. OBJECTIVE: VITAL SIGNS: Her blood pressure 147/88, pulse 76, it is regular, sinus on the monitor. LUNGS: Clear. CARDIAC: Normal S1, normal S2. ABDOMEN: Obese and nontender. EXTREMITIES: Still moderate edema, lot of it in her thighs. PERTINENT LABORATORY DATA: Potassium is down to 2.9. The I and O probably not very accurate. She has urinary collection system called Viewabill, but she looks much less edematous. ASSESSMENT: 1. Congestive heart failure systolic and diastolic, mixed. 2. Renal failure, slightly worsened with diuresis. Creatinine is up to 1.88. 3. Hypokalemia. PLAN: 1. Replete potassium. 2. We will try with Entresto. 3. Hold diuretics for now and recheck potassium level in the morning. 4. The patient also has aortic stenosis, moderate to severe. Multiple medical problems, we are trying to balance as well as possible. Job ID: [id number]
--- NOTE | 2020-03-22 11:05 | PRG ---
DATE OF SERVICE: 03/22/2020 SUBJECTIVE: This is an 84-year-old female, being seen for acute kidney injury. The patient denies any nausea, vomiting, or chest pain. PHYSICAL EXAMINATION: General: The patient is awake and alert. Vital Signs: Afebrile, pulse 76, breathing at 16, blood pressure 153/69. HEENT: Head normocephalic and atraumatic. Eyes intact, no ulcers. Nose intact, no ulcers. Ears intact, no ulcers. Neck: Supple. No JVD. Chest: Symmetrical and clear. Cardiovascular: Shows S1 and S2, no rub, no murmur. Gastrointestinal: Abdomen is soft, bowel sounds positive. Extremities: Show no edema or ulcers. Skin: Shows no rash or petechiae. Musculoskeletal: Shows no joint swelling or stiffness. Genitourinary: Shows no Schroeder or CVA tenderness. Neurologic: Motor intact. Cranial nerves intact. LABORATORY DATA: Show sodium is 147, potassium is 2.9, creatinine 1.8. ASSESSMENT AND PLAN: 1. Acute kidney injury, most likely due to decreased effective arterial blood volume. I would decrease the dose of diuretics. 2. Lymphedema. 3. Congestive heart failure. 4. Hypokalemia. We would recommend potassium replacement and checking potassium regularly. 5. Elevated bicarbonate, most likely metabolic alkalosis due to diuretic therapy. We would recommend checking ABG. 6. Anemia, stable. 7. Medication based on GFR, appropriate. 8. Hypercalcemia, improved. Job ID: [id number]
[2020-03-22] MEDS: Zinc Sulfate 220 MG CAP PO SCH (11:08)
[2020-03-22] MEDS: traMADol HCl 50 MG TAB PO PRN (11:39)
[2020-03-22] MEDS: Acetaminophen 500 MG TAB PO PRN (11:47)
--- NOTE | 2020-03-22 12:37 | PDOC.HOSPP ---
- Subjective Encounter Date: 03/22/20 Encounter Time: 10:00 Subjective: is sitting up in bed, no sob or palp feels better, slept well last night - Objective Vital Signs & Weight: Vital Signs (12 hours) Temp Pulse Pulse Pulse Resp BP BP 03/22/20 11:00 97.9 F 62 18 03/22/20 10:27 03/22/20 10:01 63 67 153/69 H 174/78 H 03/22/20 08:17 97.7 F 76 18 03/22/20 03:08 97.5 F L 66 18 03/22/20 02:34 69 03/22/20 02:30 BP BP Pulse Ox Pulse Ox 03/22/20 11:00 153/73 H 94 L 03/22/20 10:27 153/69 H 03/22/20 10:01 96 03/22/20 08:17 147/88 H 97 03/22/20 03:08 142/63 H 92 L 03/22/20 02:34 03/22/20 02:30 163/74 H Weight Admit Weight 236 lb Weight 231 lb 8.577 oz I&O: 03/21/20 03/22/20 03/23/20 06:59 06:59 06:59 Intake Total 1254 900 Output Total 3050 1800 Balance -1796 -900 Result Diagrams: 03/22/20 09:36 03/22/20 03:47 Hospitalist ROS - Medication Medications: Active Medications Generic Name Dose Route Start Last Admin Trade Name Freq PRN Reason Stop Dose Admin Acetaminophen 500 mg 03/18/20 00:21 03/22/20 11:47 Tylenol PO 500 mg Q4HR PRN Administration Mild Pain (1-3) Hydrocodone Bitart/Acetaminophen 1 tab 03/18/20 00:21 03/21/20 21:28 [place] 10/325 PO 1 tab Q4HR PRN Administration Moderate Pain (4-6) Acidophilus 1 tab 03/18/20 09:00 03/22/20 08:25 Floranex PO 1 tab BID CODY Administration Allopurinol 100 mg 03/18/20 09:00 03/22/20 08:24 Zyloprim PO 100 mg 0900 CODY Administration Ascorbic Acid 1,000 mg 03/18/20 09:00 03/22/20 08:24 Vitamin C PO 1,000 mg DAILY CODY Administration Carvedilol 6.25 mg 03/21/20 17:00 03/22/20 08:24 Coreg PO 6.25 mg BID-WM CODY Administration Cephalexin 250 mg 03/19/20 09:00 03/22/20 08:25 Keflex PO 250 mg BID CODY Administration Clonidine 0.1 mg 03/17/20 23:54 03/21/20 11:29 Catapres PO 0.1 mg Q8H PRN Administration SBP GREATER THAN 160 Cyanocobalamin 1,000 mcg 03/18/20 09:00 03/22/20 08:25 Vitamin B-12 PO 1,000 mcg DAILY CODY Administration Docusate Sodium 100 mg 03/18/20 09:00 03/22/20 08:25 Colace PO 100 mg BID CODY Administration Doxycycline Hyclate 100 mg 03/19/20 09:00 03/22/20 08:25 Vibramycin PO 100 mg DAILY CODY Administration Duloxetine HCl 60 mg 03/18/20 09:00 03/22/20 08:25 Cymbalta PO 60 mg 0900 CODY Administration Estradiol 2 gm 03/18/20 21:00 03/21/20 21:30 Estrace 0.01% Vaginal Cream VAG 2 gm 2100 CODY Administration Ferrous Sulfate 325 mg 03/18/20 09:00 03/22/20 08:25 Feosol PO 325 mg BID CODY Administration Fluticasone Propionate 0 gm 03/18/20 09:00 03/22/20 08:26 Flonase Nasal [place] NASAL 1 spr DAILY CODY Administration Gabapentin 200 mg 03/18/20 21:00 03/21/20 21:29 Neurontin PO 200 mg 2100 CODY Administration Gabapentin 100 mg 03/18/20 09:00 03/22/20 08:25 Neurontin PO 100 mg 0900 CODY Administration Hydralazine HCl 50 mg 03/19/20 21:00 03/22/20 08:26 Apresoline PO 50 mg TID CODY Administration Hydralazine HCl 10 mg 03/21/20 06:12 03/22/20 02:34 Apresoline SLOW IVP 10 mg Q6H PRN Administration SBP GREATER THAN 160 Magnesium Oxide 400 mg 03/18/20 09:00 03/22/20 08:25 Magnesium Oxide PO 400 mg DAILY CODY Administration Melatonin 9 mg 03/18/20 21:00 03/21/20 21:29 Melatonin PO 9 mg HS CODY Administration Multivitamins 1 tab 03/18/20 09:00 03/22/20 08:25 Theragran PO 1 tab DAILY CODY Administration Nystatin 0 gm 03/18/20 08:04 03/19/20 21:50 Mycostatin Powder TOP 1 applic BID PRN Administration yeast infection Pantoprazole Sodium 40 mg 03/18/20 09:00 03/22/20 08:26 Protonix PO 40 mg 0900 CODY Administration Sacubitril/Valsartan 1 tab 03/22/20 09:00 03/22/20 08:26 Entresto 24 Mg-26 Mg Tablet PO 1 tab BID CODY Administration Sodium Chloride 10 ml 03/18/20 09:00 03/22/20 08:35 Flush - Normal Saline IVF 10 ml Q12HR CDOY Administration Sodium Chloride 10 ml 03/18/20 08:08 03/20/20 06:13 Flush - Normal Saline IVF 10 ml PRN PRN Administration Saline Flush Tramadol HCl 50 mg 03/21/20 12:09 03/22/20 11:39 Ultram PO 50 mg Q12H PRN Administration Mild Pain (1-3) Warfarin Sodium 7.5 mg 03/20/20 17:00 03/21/20 16:23 Coumadin PO 7.5 mg 1700 CODY Administration Zinc Sulfate 220 mg 03/18/20 12:00 03/22/20 11:08 Zinc Sulfate PO 220 mg 1200 CODY Administration - Exam General Appearance: awake alert Eye: PERRL, anicteric sclera ENT: no oropharyngeal lesions, moist mucosa Neck: supple, no JVD Heart: RRR, no gallops Respiratory: no wheezes, no rales Gastrointestinal: soft, non-tender, non-distended, normal bowel sounds Extremities: no cyanosis, 1+ LE edema Neurological: cranial nerve grossly intact, no focal deficits Psychiatric: normal affect, A&O x 3 Hosp A/P (1) Acute on chronic diastolic CHF (congestive heart failure) Code(s): I50.33 - ACUTE ON CHRONIC DIASTOLIC (CONGESTIVE) HEART FAILURE Status : Acute (2) Acute kidney injury Code(s): N17.9 - ACUTE KIDNEY FAILURE, UNSPECIFIED Status: Acute (3) Anemia, macrocytic Code(s): D53.9 - NUTRITIONAL ANEMIA, UNSPECIFIED Status: Chronic (4) Anxiety and depression Code(s): F41.9 - ANXIETY DISORDER, UNSPECIFIED; F32.9 - MAJOR DEPRESSIVE DISORDER, SINGLE EPISODE, UNSPECIFIED Status: Chronic (5) CKD (chronic kidney disease) stage 4, GFR 15-29 ml/min Code(s): N18.4 - CHRONIC KIDNEY DISEASE, STAGE 4 (SEVERE) Status: Chronic (6) Chronic acquired lymphedema Code(s): I89.0 - LYMPHEDEMA, NOT ELSEWHERE CLASSIFIED Status: Chronic (7) Dyslipidemia Code(s): E78.5 - HYPERLIPIDEMIA, UNSPECIFIED Status: Chronic (8) Hypertension Code(s): I10 - ESSENTIAL (PRIMARY) HYPERTENSION Status: Chronic Qualifiers: Hypertension type: essential hypertension Qualified Code(s): I10 - Essential (primary) hypertension (9) FAUSTINO (obstructive sleep apnea) Code(s): G47.33 - OBSTRUCTIVE SLEEP APNEA (ADULT) (PEDIATRIC) Status: Chronic (10) Obesity (BMI 30-39.9) Code(s): E66.9 - OBESITY, UNSPECIFIED Status: Chronic (11) Physical deconditioning Code(s): R53.81 - OTHER MALAISE Status: Chronic - Plan gentle diuresis, oral lasix renal function is slightly up, inr is 1.6 (on home dose coumadin) trial of entresto to see if it will help her chf, d/w d/w daughter at bedside is on keflex, doxy, coreg, coumadin, hydralazine, neurontin and cymbalta hemostable to mobilize as tolerated dc planning.
--- NOTE | 2020-03-22 14:41 | RAD ---
FRONTAL RADIOGRAPH CHEST: 03/22/20 COMPARISON: 11/12/10. HISTORY: Decreased air entry on the left. FINDINGS: There is focal opacity in the medial left base with partial obscuration of the left hemidiaphragm. Th ere is no pneumothorax. Right lung appears grossly unremarkable. Cardiac silhouette appears enlarged. IMPRESSION: Nonspecific hazy increased density in the medial left base may signify infiltrate/infectious pneumoni tis, and/or volume loss. Follow-up PA and lateral imaging of the chest following treatment advised. POS: [facility]
[2020-03-22] MEDS: Warfarin Sodium 7.5 MG TAB PO SCH (16:09)
[2020-03-22] MEDS ORDERED: Warfarin Sodium 1 MG TAB PO SCH (17:00)
[2020-03-22] MEDS: Melatonin 3 MG TAB PO SCH (21:22)
[2020-03-22] MEDS: Estradiol 0.01% Vaginal Cream 42.5 gm Tube VAG SCH (21:22)
[2020-03-22] MEDS: HYDROcodone/Acetaminophen 10/325 mg Tablet PO PRN (21:30)
[2020-03-23 08:27] LABS: INR-International Normal Ratio 2.3; Prothrombin Time 24.8 sec (12.0-14.7)
[2020-03-23] MEDS: DULoxetine 60 MG CAP PO SCH (08:31)
[2020-03-23] MEDS: Doxycycline 100 MG CAP PO SCH (08:31)
[2020-03-23] MEDS: Carvedilol 6.25 MG TAB PO SCH ×2 (08:31→16:46)
[2020-03-23] MEDS: Ferrous Sulfate 325 MG TAB PO SCH ×2 (08:31→21:08)
[2020-03-23] MEDS: Magnesium Oxide 400 MG TAB PO SCH (08:31)
[2020-03-23] MEDS: Cephalexin 250 MG CAP PO SCH ×2 (08:31→21:08)
[2020-03-23] MEDS: Multivit, Therapeutic 1 TAB PO SCH (08:31)
[2020-03-23] MEDS: Gabapentin 100 MG CAP PO SCH ×2 (08:31→21:09)
[2020-03-23] MEDS: Cyanocobalamin (Vitamin B-12) 1,000 MCG TAB PO SCH (08:31)
[2020-03-23] MEDS: Lactinex Tablet PO SCH ×2 (08:31→21:09)
[2020-03-23] MEDS: Ascorbic Acid 500 mg Chewable Tablet PO SCH (08:31)
[2020-03-23] MEDS: Docusate 100 MG CAP PO SCH ×2 (08:31→21:08)
[2020-03-23] MEDS: Allopurinol 100 MG TAB PO SCH (08:31)
[2020-03-23] MEDS: Fluticasone Propionate Nasal Spray 16 gm Bottle NASAL SCH (08:32)
[2020-03-23] MEDS: hydrALAZINE 25 MG TAB PO SCH ×3 (08:32→21:10)
[2020-03-23 08:40] LABS: BUN (Urea Nitrogen) 113 mg/dL (9.8-20.1); Calc. Creatinine Clearance 40 mL/min (70-130); Calcium 10.1 mg/dL (7.8-10.44); Estimated GFR-MDRD 28; Glucose 107 mg/dL (83-110)
[2020-03-23 08:51] LABS: Anion Gap 16 mmol/L (10-20); Carbon Dioxide 37 mmol/L (23-31); Chloride 92 mmol/L (98-107); Potassium 3.1 mmol/L (3.5-5.1); Sodium 142 mmol/L (136-145)
[2020-03-23] MEDS ORDERED: Torsemide 100 MG TAB PO SCH (10:08)
[2020-03-23] MEDS ORDERED: Torsemide 20 MG TAB PO SCH (10:15)
--- NOTE | 2020-03-23 10:30 | PRG ---
DATE OF SERVICE: 03/23/2020 SUBJECTIVE: Ms. Trinidad looks better today. She is breathing better. OBJECTIVE: VITAL SIGNS: Her blood pressure earlier this morning was 111/59, now it is 160/73; pulse 64, regular. LUNGS: Clear. CARDIAC: Normal S1, normal S2. ABDOMEN: Obese and nontender. EXTREMITIES: Moderate edema, but better than it was. PERTINENT LABORATORY DATA: Potassium is 3.1 and creatinine is better at 1.73. ASSESSMENT: 1. Congestive heart failure, systolic-diastolic mixed. 2. [id number] aortic stenosis. 3. Renal failure, stage 4, stable. PLAN: 1. Resume diuretics. We will try torsemide orally. 2. If this is ineffective, may have to try to get a midline or some other type of IV access. Right now, she does not have IV access. Job ID: [id number]
[2020-03-23] MEDS: Zinc Sulfate 220 MG CAP PO SCH (11:07)
[2020-03-23] MEDS: traMADol HCl 50 MG TAB PO PRN (11:07)
[2020-03-23] MEDS: Acetaminophen 500 MG TAB PO PRN (11:07)
[2020-03-23 11:44] VITALS: BMI 39.5
[2020-03-23] MEDS ORDERED: Potassium Chloride 20 MEQ TAB PO SCH ×2 (12:00→17:00)
--- NOTE | 2020-03-23 12:04 | PRG ---
DATE OF SERVICE: 03/23/2020 SUBJECTIVE: This is an 84-year-old female, being seen for acute kidney injury. The patient denies nausea, vomiting, or chest pain. PHYSICAL EXAMINATION: General: The patient is awake and alert. Vital Signs: Afebrile, pulse 60, breathing at 16, blood pressure 131/58. HEENT: Head normocephalic and atraumatic. Eyes intact, no ulcers. Nose intact, no ulcers. Ears intact, no ulcers. Neck: Supple. No JVD. Chest: Symmetrical and clear. Cardiovascular: Shows S1 and S2, no rub, no murmur. Gastrointestinal: Abdomen is soft, bowel sounds positive. Extremities: Show no edema or ulcers. Skin: Shows no rash or petechiae. Musculoskeletal: Shows no joint swelling or stiffness. Genitourinary: Shows no Schroeder or CVA tenderness. Neurologic: Motor intact. Cranial nerves intact. LABORATORY DATA: Showed hemoglobin 13.7, creatinine 1.7. ASSESSMENT AND PLAN: 1. Chronic kidney disease, stage 4, stable. 2. Acute kidney injury, improving. 3. Elevated BUN, multifactorial. 4. Hypokalemia, recommend potassium replacement. 5. Hypercalcemia, resolved. I will sign off on this patient. Please reconsult as needed. Job ID: [id number]
[2020-03-23] MEDS: Torsemide 20 MG TAB PO SCH (13:15)
--- NOTE | 2020-03-23 15:30 | PDOC.HOSPP ---
- Subjective Encounter Date: 03/23/20 Encounter Time: 11:00 Subjective: no sob, feels better daughter at bedside no cough - Objective Vital Signs & Weight: Vital Signs (12 hours) Temp Pulse Pulse Pulse Resp BP BP 03/23/20 11:00 98.5 F 60 18 03/23/20 09:29 64 64 131/58 L 131/59 L 03/23/20 08:23 98.7 F 65 18 03/23/20 06:55 BP Pulse Ox Pulse Ox 03/23/20 11:00 108/54 L 94 L 03/23/20 09:29 93 L 03/23/20 08:23 160/73 H 94 L 03/23/20 06:55 94 L Weight Admit Weight 236 lb 1.6 oz Weight 230 lb 6.4 oz I&O: 03/22/20 03/23/20 03/24/20 06:59 06:59 06:59 Intake Total 900 1590 Output Total 1800 900 Balance -900 690 Result Diagrams: 03/22/20 09:36 03/23/20 08:11 Hospitalist ROS - Medication Medications: Active Medications Generic Name Dose Route Start Last Admin Trade Name Freq PRN Reason Stop Dose Admin Acetaminophen 500 mg 03/18/20 00:21 03/23/20 11:07 Tylenol PO 500 mg Q4HR PRN Administration Mild Pain (1-3) Hydrocodone Bitart/Acetaminophen 1 tab 03/18/20 00:21 03/22/20 21:30 [place] 10/325 PO 1 tab Q4HR PRN Administration Moderate Pain (4-6) Acidophilus 1 tab 03/18/20 09:00 03/23/20 08:31 Floranex PO 1 tab BID CODY Administration Allopurinol 100 mg 03/18/20 09:00 03/23/20 08:31 Zyloprim PO 100 mg 0900 CODY Administration Ascorbic Acid 1,000 mg 03/18/20 09:00 03/23/20 08:31 Vitamin C PO 1,000 mg DAILY CODY Administration Carvedilol 6.25 mg 03/21/20 17:00 03/23/20 08:31 Coreg PO 6.25 mg BID-WM CODY Administration Cephalexin 250 mg 03/19/20 09:00 03/23/20 08:31 Keflex PO 250 mg BID CODY Administration Clonidine 0.1 mg 03/17/20 23:54 06/02/20 11:29 Catapres PO 0.1 mg Q8H PRN Administration SBP GREATER THAN 160 Cyanocobalamin 1,000 mcg 03/18/20 09:00 03/23/20 08:31 Vitamin B-12 PO 1,000 mcg DAILY CODY Administration Docusate Sodium 100 mg 03/18/20 09:00 03/23/20 08:31 Colace PO 100 mg BID CODY Administration Doxycycline Hyclate 100 mg 03/19/20 09:00 03/23/20 08:31 Vibramycin PO 100 mg DAILY CODY Administration Duloxetine HCl 60 mg 03/18/20 09:00 03/23/20 08:31 Cymbalta PO 60 mg 0900 CODY Administration Estradiol 2 gm 03/18/20 21:00 03/22/20 21:22 Estrace 0.01% Vaginal Cream VAG 2 gm 2100 CODY Administration Ferrous Sulfate 325 mg 03/18/20 09:00 03/23/20 08:31 Feosol PO 325 mg BID CODY Administration Fluticasone Propionate 0 gm 03/18/20 09:00 03/23/20 08:32 Flonase Nasal [place] NASAL 2 spr DAILY CODY Administration Gabapentin 200 mg 03/18/20 21:00 03/22/20 21:22 Neurontin PO 200 mg 2100 CODY Administration Gabapentin 100 mg 03/18/20 09:00 03/23/20 08:31 Neurontin PO 100 mg 0900 CODY Administration Hydralazine HCl 50 mg 03/19/20 21:00 03/23/20 08:32 Apresoline PO 50 mg TID CODY Administration Hydralazine HCl 10 mg 03/21/20 06:12 03/22/20 02:34 Apresoline SLOW IVP 10 mg Q6H PRN Administration SBP GREATER THAN 160 Magnesium Oxide 400 mg 03/18/20 09:00 03/23/20 08:31 Magnesium Oxide PO 400 mg DAILY CODY Administration Melatonin 9 mg 03/18/20 21:00 03/22/20 21:22 Melatonin PO 9 mg HS CODY Administration Multivitamins 1 tab 03/18/20 09:00 03/23/20 08:31 Theragran PO 1 tab DAILY CODY Administration Nystatin 0 gm 03/18/20 08:04 03/19/20 21:50 Mycostatin Powder TOP 1 applic BID PRN Administration yeast infection Pantoprazole Sodium 40 mg 03/18/20 09:00 03/23/20 08:32 Protonix PO 40 mg 0900 CODY Administration Sacubitril/Valsartan 1 tab 03/22/20 09:00 03/23/20 08:32 Entresto 24 Mg-26 Mg Tablet PO 1 tab BID CODY Administration Sodium Chloride 10 ml 03/18/20 09:00 03/23/20 08:32 Flush - Normal Saline IVF 10 ml Q12HR CODY Administration Sodium Chloride 10 ml 03/18/20 08:08 03/20/20 06:13 Flush - Normal Saline IVF 10 ml PRN PRN Administration Saline Flush Torsemide 40 mg 03/23/20 14:00 03/23/20 13:15 Demadex PO 40 mg 0900,1400 CODY Administration Tramadol HCl 50 mg 03/21/20 12:09 03/23/20 11:07 Ultram PO 50 mg Q12H PRN Administration Mild Pain (1-3) Zinc Sulfate 220 mg 03/18/20 12:00 03/23/20 11:07 Zinc Sulfate PO 220 mg 1200 CODY Administration - Exam General Appearance: awake alert Eye: PERRL, anicteric sclera ENT: no oropharyngeal lesions, moist mucosa Neck: supple, no JVD Heart: RRR, murmur present Respiratory: no wheezes, no rales Gastrointestinal: soft, non-tender, non-distended, normal bowel sounds Extremities: no cyanosis, 2+ LE edema Neurological: cranial nerve grossly intact, no focal deficits Psychiatric: normal affect, A&O x 3 Hosp A/P (1) Acute on chronic diastolic CHF (congestive heart failure) Code(s): I50.33 - ACUTE ON CHRONIC DIASTOLIC (CONGESTIVE) HEART FAILURE Status : Acute (2) Acute kidney injury Code(s): N17.9 - ACUTE KIDNEY FAILURE, UNSPECIFIED Status: Acute (3) Anemia, macrocytic Code(s): D53.9 - NUTRITIONAL ANEMIA, UNSPECIFIED Status: Chronic (4) Anxiety and depression Code(s): F41.9 - ANXIETY DISORDER, UNSPECIFIED; F32.9 - MAJOR DEPRESSIVE DISORDER, SINGLE EPISODE, UNSPECIFIED Status: Chronic (5) CKD (chronic kidney disease) stage 4, GFR 15-29 ml/min Code(s): N18.4 - CHRONIC KIDNEY DISEASE, STAGE 4 (SEVERE) Status: Chronic (6) Chronic acquired lymphedema Code(s): I89.0 - LYMPHEDEMA, NOT ELSEWHERE CLASSIFIED Status: Chronic (7) Dyslipidemia Code(s): E78.5 - HYPERLIPIDEMIA, UNSPECIFIED Status: Chronic (8) Hypertension Code(s): I10 - ESSENTIAL (PRIMARY) HYPERTENSION Status: Chronic Qualifiers: Hypertension type: essential hypertension Qualified Code(s): I10 - Essential (primary) hypertension (9) FAUSTINO (obstructive sleep apnea) Code(s): G47.33 - OBSTRUCTIVE SLEEP APNEA (ADULT) (PEDIATRIC) Status: Chronic (10) Obesity (BMI 30-39.9) Code(s): E66.9 - OBESITY, UNSPECIFIED Status: Chronic (11) Physical deconditioning Code(s): R53.81 - OTHER MALAISE Status: Chronic - Plan gentle diuresis, is on torsemide from today, suggest decrease dose, bun is slowly going up and her hco3 is 37. inr is therapeutic trial of entresto (started on 03/22/20) to see if it will help her chf, d/w d/w daughter at bedside is on keflex, doxy (is on chronic suppression therapy), coreg, coumadin, hydralazine, neurontin and cymbalta hemostable to mobilize as tolerated dc planning.
[2020-03-23] MEDS: Warfarin Sodium 5 MG TAB PO SCH (16:43)
[2020-03-23] MEDS ORDERED: Warfarin Sodium 7.5 MG TAB PO SCH (17:00)
[2020-03-23] MEDS: Melatonin 3 MG TAB PO SCH (21:08)
[2020-03-23] MEDS: HYDROcodone/Acetaminophen 10/325 mg Tablet PO PRN (21:09)
[2020-03-23] MEDS: Estradiol 0.01% Vaginal Cream 42.5 gm Tube VAG SCH (21:10)
[2020-03-24 04:48] LABS: INR-International Normal Ratio 2.5; Prothrombin Time 26.8 sec (12.0-14.7)
[2020-03-24 04:59] LABS: BUN (Urea Nitrogen) 124 mg/dL (9.8-20.1); Calc. Creatinine Clearance 42 mL/min (70-130); Estimated GFR-MDRD 29; Glucose 108 mg/dL (83-110)
[2020-03-24 05:08] LABS: Anion Gap 15 mmol/L (10-20); Carbon Dioxide 39 mmol/L (23-31); Chloride 92 mmol/L (98-107); Potassium 3.5 mmol/L (3.5-5.1); Sodium 142 mmol/L (136-145)
[2020-03-24] MEDS ORDERED: Potassium Chloride 20 MEQ TAB PO SCH (07:45)
[2020-03-24] MEDS: Docusate 100 MG CAP PO SCH ×2 (08:55→21:28)
[2020-03-24] MEDS: Lactinex Tablet PO SCH ×2 (08:55→21:27)
[2020-03-24] MEDS: DULoxetine 60 MG CAP PO SCH (08:55)
[2020-03-24] MEDS: Sacubitril 49 MG/Valsartan 51 MG TABLET PO SCH ×2 (08:57→21:27)
[2020-03-24] MEDS: Ferrous Sulfate 325 MG TAB PO SCH ×2 (08:58→21:32)
[2020-03-24] MEDS: Torsemide 20 MG TAB PO SCH ×2 (08:59→14:34)
[2020-03-24] MEDS: Doxycycline 100 MG CAP PO SCH (09:00)
[2020-03-24] MEDS: Ascorbic Acid 500 mg Chewable Tablet PO SCH (09:00)
[2020-03-24] MEDS: Multivit, Therapeutic 1 TAB PO SCH (09:00)
[2020-03-24] MEDS: Magnesium Oxide 400 MG TAB PO SCH (09:00)
[2020-03-24] MEDS: Allopurinol 100 MG TAB PO SCH (09:01)
[2020-03-24] MEDS: Cyanocobalamin (Vitamin B-12) 1,000 MCG TAB PO SCH (09:01)
[2020-03-24] MEDS: Gabapentin 100 MG CAP PO SCH ×2 (09:01→21:28)
[2020-03-24] MEDS: Cephalexin 250 MG CAP PO SCH ×2 (09:01→21:27)
[2020-03-24] MEDS: Fluticasone Propionate Nasal Spray 16 gm Bottle NASAL SCH (09:06)
[2020-03-24] MEDS: traMADol HCl 50 MG TAB PO PRN ×2 (09:10→17:04)
[2020-03-24] MEDS: Acetaminophen 500 MG TAB PO PRN ×2 (09:10→17:04)
--- NOTE | 2020-03-24 09:15 | PRG ---
DATE OF SERVICE: 03/24/2020 SUBJECTIVE: Ms. Trinidad is sitting up on the side of bed. She looks comfortable. No chest pain or pressure. She is not short of breath. OBJECTIVE: VITAL SIGNS: Blood pressure is variable 130/60 earlier, last night is 118/58, now 156/70; pulse is 70. Weight is 230. LUNGS: Clear. CARDIAC: Normal S1, normal S2. ABDOMEN: Obese, nontender. EXTREMITIES: Moderate edema. LABORATORY DATA: Potassium is 3.5, creatinine is 1.66, BUN is 124. ASSESSMENT: 1. Congestive heart failure, systolic and diastolic mixed. 2. Renal failure stage 4, which is stable, creatinine is 1.66. 3. History of diastolic heart failure, now with some element of systolic component. 4. [id number] mitral regurgitation. PLAN: 1. Continue Entresto, we will increase dose. 2. We will hold carvedilol to allow for faster heart rate and blood pressure, especially in view of the diastolic heart failure. 3. Reduce hydralazine. 4. She is on torsemide 40 mg twice a day. 5. If necessary, can add intravenous diuretic, but would hold off for today, hopefully can avoid increasing creatinine if we can keep the diuretic on low-dose. Job ID: [id number]
[2020-03-24] MEDS: Zinc Sulfate 220 MG CAP PO SCH (11:49)
[2020-03-24] MEDS: Warfarin Sodium 5 MG TAB PO SCH (17:07)
--- NOTE | 2020-03-24 18:48 | PRG ---
DATE OF SERVICE: 03/24/2020 SUBJECTIVE: An 84-year-old female with chronic diastolic heart failure, presented to the hospital on 17 Mar 2020, with shortness of breath along with worsening bilateral lower extremity swelling. Workup was consistent with acute on chronic systolic/diastolic heart failure exacerbation. Her shortness of breath has improved. She denies any chest discomfort at this time. REVIEW OF SYSTEMS: No nausea, vomiting, diarrhea, or new focal deficit reported. CURRENT MEDICATIONS: Reviewed. The patient is on Entresto with oral torsemide. PHYSICAL EXAMINATION: VITAL SIGNS: Temperature 98.4, pulse rate of 69, respirations of 14, O2 saturation of 98% on nasal cannula, and blood pressure of 157/70. GENERAL: An 84-year-old female, in no apparent distress at rest. LUNGS: Showed diminished air entry at bilateral bases. HEART: S1 and S2 present. Regular. ABDOMEN: Soft. Bowel sounds present. EXTREMITIES: Bilateral lower extremity compression bandage noted. NEUROLOGIC: No new focal deficit. SIGNIFICANT LABORATORY DATA: INR 2.5. Hemoglobin 13.7. Creatinine 1.6 with BUN 124. Telemetry monitoring by my review showed sinus bradycardia. Chest x-ray by my review from 22 March 2020, showed nonspecific hazy density in the left base. IMPRESSION: 1. Acute on chronic systolic/diastolic heart failure exacerbation with ejection fraction of 35% to 40%. 2. Moderate mitral regurgitation. 3. History of chronic venous thromboembolism, on chronic anticoagulation. 4. Obstructive sleep apnea, on CPAP. 5. Hypertension. 6. Chronic lymphedema. 7. Chronic anemia. 8. Chronic kidney disease, stage 4. 9. Anxiety. 10. Hypokalemia. 11. Obesity with a BMI of 39.5. 12. History of lower extremity cellulitis, on chronic suppressive therapy. PLAN: 1. The patient will continue torsemide with Entresto. We will continue potassium supplementation. Continue hydralazine with other home medications. 2. A.m. labs. Continue anticoagulation. CODE STATUS: Full code. Surrogate decision maker is the daughter. Job ID: [id number]
[2020-03-24] MEDS: Melatonin 3 MG TAB PO SCH (21:31)
[2020-03-24] MEDS: Estradiol 0.01% Vaginal Cream 42.5 gm Tube VAG SCH (21:39)
[2020-03-24] MEDS ORDERED: HYDROcodone/Acetaminophen 5/325 mg Tablet PO PRN (22:03)
[2020-03-25 04:54] LABS: Hemoglobin 12.5 g/dL (12.0-16.0); Platelet Count 276 thou/uL (130-400)
[2020-03-25 05:06] LABS: INR-International Normal Ratio 2.5; Prothrombin Time 26.7 sec (12.0-14.7)
[2020-03-25 05:18] LABS: Calc. Creatinine Clearance 43 mL/min (70-130); Calcium 9.6 mg/dL (7.8-10.44); Estimated GFR-MDRD 30; Glucose 100 mg/dL (83-110)
[2020-03-25 05:30] LABS: Anion Gap 17 mmol/L (10-20); BUN (Urea Nitrogen) 114 mg/dL (9.8-20.1); Carbon Dioxide 37 mmol/L (23-31); Chloride 95 mmol/L (98-107); Potassium 3.7 mmol/L (3.5-5.1); Sodium 145 mmol/L (136-145)
[2020-03-25] MEDS ORDERED: Potassium Chloride 20 MEQ TAB PO SCH (08:00)
[2020-03-25] MEDS: Magnesium Oxide 400 MG TAB PO SCH (09:35)
[2020-03-25] MEDS: Lactinex Tablet PO SCH (09:35)
[2020-03-25] MEDS: Allopurinol 100 MG TAB PO SCH (09:36)
[2020-03-25] MEDS: Multivit, Therapeutic 1 TAB PO SCH (09:37)
[2020-03-25] MEDS: Doxycycline 100 MG CAP PO SCH (09:37)
[2020-03-25] MEDS: Ascorbic Acid 500 mg Chewable Tablet PO SCH (09:37)
[2020-03-25] MEDS: Cyanocobalamin (Vitamin B-12) 1,000 MCG TAB PO SCH (09:38)
[2020-03-25] MEDS: Torsemide 20 MG TAB PO SCH ×2 (09:38→14:34)
[2020-03-25] MEDS: hydrALAZINE 25 MG TAB PO SCH ×2 (09:38→14:33)
[2020-03-25] MEDS: Sacubitril 49 MG/Valsartan 51 MG TABLET PO SCH (09:39)
[2020-03-25] MEDS: Gabapentin 100 MG CAP PO SCH (09:39)
[2020-03-25] MEDS: Cephalexin 250 MG CAP PO SCH (09:39)
[2020-03-25] MEDS: Ferrous Sulfate 325 MG TAB PO SCH (09:39)
[2020-03-25] MEDS: Docusate 100 MG CAP PO SCH (09:39)
[2020-03-25] MEDS: Fluticasone Propionate Nasal Spray 16 gm Bottle NASAL SCH (09:59)
[2020-03-25] MEDS: DULoxetine 60 MG CAP PO SCH (10:19)
[2020-03-25] MEDS: traMADol HCl 50 MG TAB PO PRN (11:25)
[2020-03-25] MEDS: Acetaminophen 500 MG TAB PO PRN (11:26)
[2020-03-25] MEDS: Zinc Sulfate 220 MG CAP PO SCH (12:46)
[2020-03-25 13:07] VITALS: TEMP 97.8
[2020-03-25 16:18] VITALS: BP 135/74
--- NOTE | 2020-03-26 07:38 | DIS ---
DATE OF ADMISSION: 03/19/2020 DATE OF DISCHARGE: 03/25/2020 HOSPITAL COURSE: Ms. Trinidad is an 84-year-old female with medical history of heart failure, hypertension, CKD, chronic DVT, who presented for shortness of breath and abdominal and leg swelling. The patient is known to have chronic diastolic heart failure, but this admission workup was consistent with acute on chronic systolic and diastolic heart failure exacerbation. The patient was diuresed and Cardiology was consulted. Medications were modified and per Cardiology Entresto was started. The patient improved with diuresis and on the day of discharge was at baseline breathing level, saturating mid 90s on room air with no dyspnea. In regard to her hypertension, the patient was hypertensive on the day of discharge; however, Entresto was just started. She will continue to follow up with Cardiology and primary care physician to adjust antihypertensive medications and follow for adverse effects of Entresto. PHYSICAL EXAMINATION: VITAL SIGNS: Blood pressure 166/72, temperature 97.8 Fahrenheit, pulse 66, respiratory rate 14, and oxygen saturation 95% on room air at rest. GENERAL APPEARANCE: Sitting comfortably on the bed, in no apparent distress. LUNGS: Bilateral inspiratory rales in mid and lower wallace. CARDIAC: Regular rate and rhythm. ABDOMEN: Soft, nontender, nondistended. Normal bowel sounds. EXTREMITIES: Compression bandage over both bilateral lower extremities up to thigh level. MEDICATIONS: New medications; 1. Per Cardiology Entresto 49 mg/51 mg b.i.d. The patient was educated regarding following up with primary care physician in order to monitor for side effects of Entresto. 2. Torsemide 40 mg b.i.d. Continued medications; 1. Nystatin. 2. Estradiol. 3. [place]. 4. Warfarin. 5. Tramadol. 6. Acetaminophen. 7. Zinc. 8. Potassium. 9. Pantoprazole. 10. Multivitamin. 11. Magnesium oxide. 12. Gabapentin. 13. Fluticasone. 14. Ferrous sulfate. 15. Duloxetine. 16. Docusate. 17. Allopurinol. 18. Melatonin. 19. Clonidine. 20. Keflex. 21. Hydralazine. 22. Doxycycline. Discontinued medications; 1. Torsemide 100 mg b.i.d. The patient was discharged with followup appointment with primary care physician and Cardiology. Job ID: [id number]
== END 2020-03-25 15:13 | disposition home health service (06) | DRG 291 ==
LOC: ERS 15:38 → 2NO 20:28 → OBSVTOIN 03-19 19:13
PROVIDERS: ADMIT Internal Medicine; ATTEND Internal Medicine
PROC: 5A09357 Assistance with Respiratory Ventilation, Less than 24 Consecutive Hours, Continuous Positive Airway Pressure (ICD-10-PCS; principal; 2020-03-19)
DX: I13.0 Hypertensive heart and chronic kidney disease with heart failure and stage 1 through stage 4 chronic kidney disease, or unspecified chronic kidney disease (principal); I50.43 Acute on chronic combined systolic (congestive) and diastolic (congestive) heart failure; Q60.0 Renal agenesis, unilateral; N18.4 Chronic kidney disease, stage 4 (severe); N17.9 Acute kidney failure, unspecified; E87.3 Alkalosis; E44.1 Mild protein-calorie malnutrition; L03.115 Cellulitis of right lower limb; M10.9 Gout, unspecified; F03.90 Unspecified dementia, unspecified severity, without behavioral disturbance, psychotic disturbance, mood disturbance, and anxiety; F41.9 Anxiety disorder, unspecified; Z96.651 Presence of right artificial knee joint; G47.33 Obstructive sleep apnea (adult) (pediatric); J44.9 Chronic obstructive pulmonary disease, unspecified; E78.00 Pure hypercholesterolemia, unspecified; K21.9 Gastro-esophageal reflux disease without esophagitis; D63.1 Anemia in chronic kidney disease; F32.9 Major depressive disorder, single episode, unspecified; E87.6 Hypokalemia; E88.09 Other disorders of plasma-protein metabolism, not elsewhere classified; E66.9 Obesity, unspecified; E78.5 Hyperlipidemia, unspecified; M16.0 Bilateral primary osteoarthritis of hip; M17.12 Unilateral primary osteoarthritis, left knee; I08.3 Combined rheumatic disorders of mitral, aortic and tricuspid valves; I37.1 Nonrheumatic pulmonary valve insufficiency; E83.52 Hypercalcemia; Z92.21 Personal history of antineoplastic chemotherapy; Z86.711 Personal history of pulmonary embolism; Z68.38 Body mass index [BMI] 38.0-38.9, adult; Z92.3 Personal history of irradiation; Z79.51 Long term (current) use of inhaled steroids; Z79.01 Long term (current) use of anticoagulants; Z91.040 Latex allergy status; Z79.899 Other long term (current) drug therapy; Z79.82 Long term (current) use of aspirin; Z88.3 Allergy status to other anti-infective agents; Z88.0 Allergy status to penicillin; Z88.8 Allergy status to other drugs, medicaments and biological substances; Z90.49 Acquired absence of other specified parts of digestive tract; Z98.49 Cataract extraction status, unspecified eye; Z85.72 Personal history of non-Hodgkin lymphomas; Z91.048 Other nonmedicinal substance allergy status; Z86.718 Personal history of other venous thrombosis and embolism
CPT/HCPCS: 36415; 71045; 80048; 80053; 82306; 82553; 83605; 83690; 83735; 83880; 83970; 84484; 85014; 85018; 85025; 85049; 85610; 93005; 93306; 93798; 94760; 96374; G0378; J0360; J1940; J2916; J3480; J3490; J7050

== ENCOUNTER 2020-04-10 19:14 | Inpatient (IN) | payer MEDICARE ==
[2020-04-10 19:58] LABS: #Eosinphils 0.1 thou/uL (0.0-0.7); #Lymphocytes 0.9 thou/uL (1.20-3.40); #Monocytes 0.4 thou/uL (0.11-0.59); #Neutrophils 4.2 thou/uL (1.40-6.50); %Basophils 0.3 % (0.0-1.0); %Eosinophils 1.8 % (0.0-10.0); %Lymphocytes 16.3 % (21.0-51.0); %Monocytes 7.5 % (0.0-10.0); Hemoglobin 13.5 g/dL (12.0-16.0); Mean Corpuscular HGB CONC 33.2 g/dL (32.0-36.0); Mean Corpuscular Hemoglobin 31.2 pg (27.0-31.0); Mean Corpuscular Volume 94.2 fL (78.0-98.0); Platelet Count 239 thou/uL (130-400); RBC Distribution Width 15.5 % (11.5-14.5); Red Blood Cell (RBC) Count 4.33 mill/uL (4.20-5.40); White Blood Cell (WBC) Count 5.7 thou/uL (4.8-10.8)
[2020-04-10 20:20] LABS: ALT (SGPT) 16 U/L (8-55); AST (SGOT) 22 U/L (5-34); Albumin 4.1 g/dL (3.4-4.8); Alkaline Phosphatase 106 U/L (40-110); Anion Gap 19 mmol/L (10-20); Bilirubin, Total 0.3 mg/dL (0.2-1.2); Calc. Creatinine Clearance 0 mL/min (70-130); Calcium 10.4 mg/dL (7.8-10.44); Carbon Dioxide 30 mmol/L (23-31); Chloride 90 mmol/L (98-107); Estimated GFR-MDRD 20; Globulin 3.3 g/dL (2.4-3.5); Glucose 110 mg/dL (83-110); Potassium 5.9 mmol/L (3.5-5.1); Protein, Total 7.4 g/dL (6.0-8.3); Sodium 133 mmol/L (136-145)
--- NOTE | 2020-04-10 20:23 | RAD ---
PORTABLE CHEST: Comparison: 03-22-2020 History: Renal disease. FINDINGS: Heart size is enlarged. Retrocardiac region is difficult to assess. No signs of failure. IMPRESSION: Cardiomegaly. Some changes in the retrocardiac region could be related to scarring. It is difficult t o assess on this portable projection. POS: [facility]
[2020-04-10 20:31] LABS: BUN (Urea Nitrogen) 140 mg/dL (9.8-20.1)
[2020-04-10 20:41] LABS: CKMB 3.8 ng/mL (0-6.6)
[2020-04-10] MEDS ORDERED: Aspirin Chewable 81 MG TAB ONE (21:04)
[2020-04-10] MEDS ORDERED: Famotidine/PF 20 mg/2ml Vial ONE (21:05)
[2020-04-10] MEDS ORDERED: Furosemide 40 MG/4 ML VIAL ONE (21:06)
[2020-04-10] MEDS ORDERED: Ondansetron PF 4 MG/2 ML Vial IVP PRN (22:19)
[2020-04-10] MEDS ORDERED: Bisacodyl 10 MG SUPP PR PRN (22:19)
[2020-04-10] MEDS ORDERED: Senokot S 8.6-50 MG TAB PO PRN (22:19)
[2020-04-10] MEDS ORDERED: Guaifenesin DM 100-10/5 ML UDCUP PO PRN (22:19)
[2020-04-10] MEDS ORDERED: Calcium Carbonate 500 MG ChewTAB PO PRN (22:19)
[2020-04-10 23:21] LABS: Bacteria/HPF None Seen HPF (None Seen); Bilirubin Negative (Negative); Blood, Urine Negative (Negative); Clarity Clear (Clear); Glucose, Urine (Dipstick) Normal (Negative); Leukocyte 500 Leu/uL (Negative); Nitrite Negative (Negative); Protein, Urine (Dipstick) Negative (Neg-Trace); RBC/HPF None Seen HPF (0-3); Squamous Epithelial None Seen HPF (0-3); Urobilinogen Normal mg/dL (Less than 2)
--- NOTE | 2020-04-10 23:59 | HP ---
REASON FOR ADMISSION: Acute kidney injury, hyperkalemia, chronic CHF. HISTORY OF PRESENTING ILLNESS: The patient had given routine blood work this morning. Her primary care physician, Dr. Handley, called her back saying her potassium was 6.2, and she needs to go to the emergency room. She currently complains of cramping in her legs. Has baseline shortness of breath. No chest pain or palpitation. Her daughter is at bedside. The daughter mentions that her INR is 1.9, and she is on Coumadin 4.5 mg. She also mentioned that Dr. Alejo has increased her dose to 2 tablets of 49/51 mg of Entresto two times daily on a recent followup with Dr. Alejo. PAST MEDICAL AND SURGICAL HISTORY: The patient has chronic history of CHF with chronic systolic and diastolic dysfunction with prior EF of 35% on recent echo. Has history of CKD stage 3 to 4, chronic anemia, anxiety, depression, poor functional status with the patient being bed-bound with very minimal mobility, hypertension , dyslipidemia, chronic lymphedema in lower extremities with compression bandage, obstructive sleep apnea, obesity, moderate to severe aortic stenosis, cholecystectomy, bilateral cataract surgery, right knee arthroplasty. PERSONAL HISTORY: Does not abuse alcohol or drugs. No history of smoking. She lives with her daughter. FAMILY HISTORY: The patient has outlived her siblings with multiple family members have had history of PE and DVT. CURRENT MEDICATIONS: The patient is on, 1. Entresto 49/51 mg two tablets twice daily. 2. Demadex 40 mg at 9 a.m. and 2:00 p.m. 3. Zinc sulfate 220 mg daily. 4. Coumadin 4.5 mg daily. 5. Ultram p.r.n. for pain. 6. Potassium chloride 20 mEq twice daily. 7. Protonix 40 mg daily. 8. Multivitamin 1 tablet daily. 9. Melatonin 10 mg p.o. at bedtime. 10. Magnesium oxide 400 mg p.o. daily. 11. Floranex one tablet twice daily. 12. [place] p.r.n. for pain. 13. Hydralazine 25 mg 3 times daily. 14. Gabapentin 100 mg p.o. q.a.m. and 200 mg p.o. q.p.m. 15. Ferrous sulfate 325 mg twice daily. 16. Duloxetine 60 mg daily. 17. Doxycycline 100 mg daily and Keflex 500 mg p.o. twice daily for chronic prophylaxis. 18. Colace 100 mg twice daily. 19. Vitamin B12 1000 mcg daily. 20. Vitamin C 1000 mg p.o. daily. 21. Allopurinol 100 mg p.o. daily. ALLERGIES: ALLERGIC TO PENICILLIN, TRIMETHOPRIM, LEVAQUIN, MACROBID, SULFA, ADHESIVE. CODE STATUS: Full. Power of real estate associate attorney is her daughter. REVIEW OF SYSTEMS: CONSTITUTIONAL: Negative for weight loss or gain, ability to conduct usual activities. SKIN: Negative for rash, itching. EYES: Negative for double vision, pain. ENT/MOUTH: Negative for nose bleeding, neck stiffness, pain, tenderness. CARDIOVASCULAR: Negative for palpitations, dyspnea on exertion, orthopnea. RESPIRATORY: Negative for shortness of breath, wheezing, cough, hemoptysis, fever or night sweats. GASTROINTESTINAL: Negative for poor appetite, abdominal pain, heartburn, nausea , vomiting, constipation, or diarrhea. GENITOURINARY: Negative for urgency, frequency, dysuria, nocturia. MUSCULOSKELETAL: Negative for pain, swelling. NEUROLOGIC/PSYCHIATRIC: Negative for anxiety, depression. ALLERGY/IMMUNOLOGIC: Negative for skin rash, bleeding tendency. PHYSICAL EXAMINATION: GENERAL: The patient is an 84-year-old female, who is currently not in any acute distress. VITAL SIGNS: Blood pressure 158/60, pulse 54 per minute, respiratory rate 20 per minute, temperature 98.2 degrees Fahrenheit, saturating 93% on room air. NECK: Supple. No elevated JVD. HEENT: Eyes; extraocular muscles intact. Pupils are reacting to light. Oral cavity, mucous membranes are dry. No exudates or congestion. CARDIOVASCULAR: S1 and S2 heard. Murmur plus. No S3 or S4. RESPIRATORY: Air entry 1+ bilateral. Scattered rales in the infra-axillary area. ABDOMEN: Soft. Bowel sounds heard. No tenderness, rigidity, or guarding. EXTREMITIES: Chronic lymphedema in both lower extremities. Peripheral pulses are 1+ bilateral. No ischemic ulcerations or gangrene. CENTRAL NERVOUS SYSTEM: No gross focal deficits noted. The patient is at her baseline cognitive function. No gross focal motor deficits seen. No obvious hallucinations or delusions. LABORATORY DATA: Chest x-ray done shows cardiomegaly. BUN 140, creatinine 2.3, serum bicarb 30, potassium is 5.9. BNP 1192. Albumin is 4.1. Liver enzymes within normal limits. White count of 5, hemoglobin and hematocrit 13 and 40, platelet count 239 with 74% neutrophils. EKG done shows sinus bradycardia at 48 beats per minute. There is left anterior fascicular block with poor R-wave progression and nonspecific ST-T wave changes. There are changes of LVH seen. CLINICAL IMPRESSION AND PLAN: The patient will be admitted to telemetry for acute kidney injury on top of chronic kidney disease stage 3 to 4, hyperkalemia. We will hold her Entresto, potassium supplements, and all other AV don blockers for now. We will continue her hydralazine. Add nitroglycerin paste half-inch q.8 hourly , one dose Kayexalate, and continue her Coumadin as before. The patient has very poor IV access, and I have requested for a central line. We will continue allopurinol, vitamin C, aspirin, vitamin B12, Colace, Cymbalta, ferrous sulfate, Neurontin, [place], Floranex, melatonin as before. She will be on Lasix 40 mg at 6 a.m. and 2 p.m. Her overall prognosis is guarded in view of multiple medical issues and very poor functional status. Job ID: [id number] MTDD
[2020-04-11 01:01] VITALS: BMI 37.8
--- NOTE | 2020-04-11 03:08 | CON ---
DATE OF CONSULTATION: 04/10/2020 CONSULTING PHYSICIAN: REASON FOR CONSULTATION: Hyperkalemia. REASON FOR ADMISSION: Leg weakness. HISTORY OF PRESENT ILLNESS: This is an 84-year-old female with history of congestive heart failure, chronic lymphedema, chronic kidney disease, dementia, who came to the hospital with above complaints and we evaluated. She was found to be hyperkalemic and azotemic with possible uremia. Nephrology consulted. The patient's Entresto dose was recently increased, and she was also found to have weight gain with fluid gains and was taken to the hospital. She was given Lasix in the ER. No fever or chills. No nausea or vomiting reported to me. PAST MEDICAL HISTORY: Positive for CHF, lymphoma, CKD, hypertension, lymphedema, DVT, and dementia. PAST SURGICAL HISTORY: Cholecystectomy, right knee surgery, cataract surgery. HOME MEDICATIONS: Reviewed. It includes: 1. Torsemide. 2. Entresto. 3. Potassium chloride. 4. Magnesium. 5. Gabapentin. 6. Fluticasone. 7. Ferrous sulfate. 8. Allopurinol. ALLERGIES: TO PENICILLIN, LEVOFLOXACIN, SULFAMETHOXAZOLE. SOCIAL HISTORY: No smoking, alcohol, or illicit drugs abuse. FAMILY HISTORY: No history of kidney disease. REVIEW OF SYSTEMS: Constitutional: Negative for weight loss or gain, ability to conduct usual activities. Skin: Negative for rash, itching. Eyes: Negative for double vision, pain. ENT/Mouth: Negative for nose bleeding, neck stiffness, pain, tenderness. Cardiovascular: Negative for palpitations, dyspnea on exertion, orthopnea. Respiratory: Negative for shortness of breath, wheezing, cough, hemoptysis, fever or night sweats. Gastrointestinal: Negative for poor appetite, abdominal pain, heartburn, nausea, vomiting, constipation, or diarrhea. Genitourinary: Negative for urgency, frequency, dysuria, nocturia. Musculoskeletal: Negative for pain, swelling. Neurologic/Psychiatric: Negative for anxiety, depression. Allergy/Immunologic: Negative for skin rash, bleeding tendency. PHYSICAL EXAMINATION: GENERAL: Reveals obese female, mild distress. VITAL SIGNS: Reviewed. HEENT: Atraumatic, normocephalic. Oral mucosa is moist. NECK: Supple. CV: S1-S2 heard. Rate and rhythm normal. RESPIRATORY: Clear. GI: Abdomen is soft, obese. MUSCULOSKELETAL: 2+ to 3+ edema, wrapped. NEUROLOGICAL: Alert and awake, moving all extremities. PSYCHIATRIC: Depressed. LABORATORY DATA: Potassium 5.9, BUN is 140, creatinine is 2.3. ASSESSMENT AND PLAN: 1. Acute kidney injury on chronic kidney stage 4, most likely from cardiorenal syndrome. I agree with Lasix for now with close monitoring. Elevated BUN, most likely combination of medications and renal disease and elevated protein intake. 2. Hyponatremia. 3. Hyperkalemia. Continue medical management. No acute indication for dialysis. 4. Chronic anemia. 5. Chronic lymphedema. 6. Cardiorenal syndrome. 7. Elevated BNP. Need medication adjustment. I agree with holding Entresto and potassium for now. Okay with Lasix. Continue close monitoring. Limit potassium in the diet, and we will monitor. Job ID: [id number]
[2020-04-11 04:43] LABS: #Eosinphils 0.1 thou/uL (0.0-0.7); #Lymphocytes 0.8 thou/uL (1.20-3.40); #Monocytes 0.4 thou/uL (0.11-0.59); %Basophils 0.3 % (0.0-1.0); %Eosinophils 2.8 % (0.0-10.0); %Lymphocytes 18.9 % (21.0-51.0); %Monocytes 9.4 % (0.0-10.0); %Neutrophils 68.6 % (42.0-75.0); Hemoglobin 11.1 g/dL (12.0-16.0); Mean Corpuscular HGB CONC 31.7 g/dL (32.0-36.0); Mean Corpuscular Hemoglobin 29.9 pg (27.0-31.0); Mean Corpuscular Volume 94.3 fL (78.0-98.0); Mean Platelet Volume 9.7 fL (7.4-10.4); Platelet Count 206 thou/uL (130-400); RBC Distribution Width 15.3 % (11.5-14.5); Red Blood Cell (RBC) Count 3.72 mill/uL (4.20-5.40); White Blood Cell (WBC) Count 4.4 thou/uL (4.8-10.8)
[2020-04-11 04:49] LABS: INR-International Normal Ratio 2.2
[2020-04-11 05:22] LABS: ALT (SGPT) 13 U/L (8-55); AST (SGOT) 18 U/L (5-34); Albumin 3.3 g/dL (3.4-4.8); Alkaline Phosphatase 83 U/L (40-110); Anion Gap 15 mmol/L (10-20); Bilirubin, Total 0.2 mg/dL (0.2-1.2); Calc. Creatinine Clearance 30 mL/min (70-130); Carbon Dioxide 32 mmol/L (23-31); Chloride 95 mmol/L (98-107); Estimated GFR-MDRD 22; Glucose 105 mg/dL (83-110); Magnesium 2.8 mg/dL (1.6-2.6); Potassium 4.5 mmol/L (3.5-5.1); Protein, Total 6.3 g/dL (6.0-8.3); Sodium 137 mmol/L (136-145); Uric Acid 6.8 mg/dL (2.6-6.0)
[2020-04-11] MEDS: Furosemide 40 MG/4 ML VIAL SLOW IVP SCH ×2 (05:38→14:48)
[2020-04-11] MEDS: Nitroglycerin 2% Ointment 1 INCH/1 GM Packet TOP SCH ×2 (05:39→14:53)
[2020-04-11 05:50] LABS: BUN (Urea Nitrogen) 134 mg/dL (9.8-20.1)
[2020-04-11] MEDS ORDERED: Heparin 5,000 UNITS/ML VIAL SC SCH (09:00)
[2020-04-11] MEDS ORDERED: Aspirin Chewable 81 MG TAB PO SCH (09:00)
[2020-04-11] MEDS: Allopurinol 100 MG TAB PO SCH (09:13)
[2020-04-11] MEDS: Cyanocobalamin (Vitamin B-12) 1,000 MCG TAB PO SCH (09:13)
[2020-04-11] MEDS: Docusate 100 MG CAP PO SCH ×2 (09:13→21:08)
[2020-04-11] MEDS: Ascorbic Acid 500 mg Chewable Tablet PO SCH (09:13)
[2020-04-11] MEDS: DULoxetine 60 MG CAP PO SCH (09:14)
[2020-04-11] MEDS: hydrALAZINE 25 MG TAB PO SCH ×3 (09:14→21:06)
[2020-04-11] MEDS: Lactinex Tablet PO SCH ×2 (09:14→21:05)
[2020-04-11] MEDS: Multivit, Therapeutic 1 TAB PO SCH (09:14)
[2020-04-11] MEDS: Doxycycline 100 MG CAP PO SCH (09:14)
[2020-04-11] MEDS: Ferrous Sulfate 325 MG TAB PO SCH ×2 (09:14→21:05)
[2020-04-11] MEDS: Gabapentin 100 MG CAP PO SCH ×2 (09:15→21:11)
[2020-04-11] MEDS: Acetaminophen 325 MG TAB PO PRN (09:18)
[2020-04-11] MEDS: Cephalexin 250 MG CAP PO SCH ×2 (10:34→21:05)
[2020-04-11] MEDS: Warfarin Sodium 5 MG TAB PO SCH (17:09)
--- NOTE | 2020-04-11 18:28 | PRG ---
DATE OF SERVICE: 04/11/2020 SUBJECTIVE: The patient was seen and examined at bedside and overnight events noted. The patient denies any shortness of breath or chest pain or palpitation. No history of nausea or vomiting or diarrhea or fever or chills or cramps. OBJECTIVE: GENERAL: This is an obese female, in no apparent distress. VITAL SIGNS: Temperature 97.6. Heart rate 87. Respiratory rate 19. Blood pressure 121/58. HEENT: Atraumatic, normocephalic. Oral mucosa is moist. NECK: Supple. CARDIOVASCULAR: S1, S2 heard. Rate and rhythm regular. RESPIRATORY: Clear to auscultation. GASTROINTESTINAL: Abdomen is soft. MUSCULOSKELETAL: No tenderness. No edema. DERMATOLOGIC: No skin rash. NEUROLOGIC: Alert and awake and oriented x3. No focal neurologic deficits. Moving all the extremities. PSYCHIATRIC: Mood and affect normal. LABORATORY DATA: Potassium is 4.5, BUN is 134, creatinine is 2.1. ASSESSMENT AND PLAN: 1. Acute kidney injury on chronic kidney disease, stage 4, secondary to cardiorenal syndrome, better. 2. Hyponatremia. 3. Hyperkalemia. 4. Anemia. 5. Cardiorenal syndrome. 6. Elevated BNP. Labs are better. We will follow. Avoid nephrotoxins. Job ID: [id number]
--- NOTE | 2020-04-11 19:50 | CON ---
DATE OF CONSULTATION: 04/11/2020 REASON FOR CONSULTATION: 1. Congestive heart failure, systolic/diastolic, chronic. 2. Renal failure. 3. Hyperkalemia. 4. Bradycardia. HISTORY OF PRESENT ILLNESS: Vivi is a pleasant patient with a long history as outlined above. She was recently in the hospital with heart failure. She was given Entresto. The doses were increased. The patient became hyperkalemic and was referred to the emergency room. MEDICINES: Please see the nurse's note. She was on Entresto 49/51 twice a day. She one time took two of these at a time, but otherwise had been one twice a day. She is also on potassium and other diuretics. Please see the nurse's notes. ALLERGIES: SEE NOTES. REVIEW OF SYSTEMS: GENERAL: No weakness or fatigue out of her usual. VISION: No changes. HEARING: No changes. PULMONARY: No cough or wheezing. GASTROINTESTINAL: No nausea, vomiting, or diarrhea. SKIN: No rashes. NEUROLOGIC: No unilateral weakness or numbness. PSYCHIATRIC: No unusual depression or anxiety. PHYSICAL EXAMINATION: GENERAL: This is a pleasant elderly woman, resting comfortably. She is not having trouble breathing. VITAL SIGNS: Blood pressure is variable at 120/50, pulse 87. LUNGS: Clear. CARDIAC: Normal S1, normal S2. ABDOMEN: Obese and nontender. EXTREMITIES: Moderate edema, which is her usual. LABORATORY DATA: Creatinine down to 2.17. Creatinine did get down all the way to 1.66 before she left here and was apparently 1.4 in [place]. Echocardiogram recently showed congestive heart failure, to my interpretation, ejection fraction 40% to 45%, what looks like moderate aortic stenosis, but relatively low gradient. ASSESSMENT: 1. Congestive heart failure, systolic/diastolic, very difficult to control, getting more difficult to control. 2. Renal failure. PLAN: 1. Recheck creatinine tomorrow. 2. Stop potassium. 3. Reduce Entresto when we resume the dose. 4. Reduce Lasix. 5. Check ferritin level tomorrow. We will follow with you. Job ID: [id number]
--- NOTE | 2020-04-11 20:52 | PDOC.HOSPP ---
- Subjective Encounter Date: 04/11/20 Encounter Time: 10:55 Subjective: pt up in bed asleep but arousable. - Objective Vital Signs & Weight: Vital Signs (12 hours) Temp Pulse Pulse Resp BP BP BP 04/11/20 20:00 98.1 F 65 16 04/11/20 15:53 97.6 F 87 19 04/11/20 15:15 85 180/75 H 121/58 L 04/11/20 14:53 04/11/20 11:52 98.8 F 80 15 132/63 BP Pulse Ox 04/11/20 20:00 163/68 H 96 04/11/20 15:53 121/58 L 92 L 04/11/20 15:15 04/11/20 14:53 180/75 H 04/11/20 11:52 95 Weight Admit Weight 220 lb 3.2 oz Weight 220 lb 3.2 oz I&O: 04/10/20 04/11/20 04/12/20 06:59 06:59 06:59 Intake Total 360 1085 Output Total 850 1150 Balance -490 -65 Result Diagrams: 04/11/20 04:25 04/11/20 04:25 Hospitalist ROS - Review of Systems Respiratory: denies: cough, dry, shortness of breath, hemoptysis, SOB with excertion, pleuritic pain, sputum, wheezing, other Cardiovascular: denies: chest pain, palpitations, orthopnea, paroxysmal noc. dyspnea, edema, light headedness, other Gastrointestinal: denies: nausea, vomiting, abdominal pain, diarrhea, constipation, melena, hematochezia, other - Medication Medications: Active Medications Generic Name Dose Route Start Last Admin Trade Name Freq PRN Reason Stop Dose Admin Acetaminophen 650 mg 04/10/20 22:19 04/11/20 09:18 Tylenol PO 650 mg Q4H PRN Administration Headache/Fever/Mild Pain (1-3) Acidophilus 1 tab 04/11/20 09:00 04/11/20 09:14 Floranex PO 1 tab BID [facility] Administration Allopurinol 100 mg 04/11/20 09:00 04/11/20 09:13 Zyloprim PO 100 mg 0900 [facility] Administration Ascorbic Acid 1,000 mg 04/11/20 09:00 04/11/20 09:13 Vitamin C PO 1,000 mg 0900 [facility] Administration Cephalexin 500 mg 04/11/20 09:00 04/11/20 10:34 Keflex PO Not Given BID [facility] Cyanocobalamin 1,000 mcg 04/11/20 09:00 04/11/20 09:13 Vitamin B-12 PO 1,000 mcg 0900 [facility] Administration Docusate Sodium 100 mg 04/11/20 09:00 04/11/20 09:13 Colace PO 100 mg BID [facility] Administration Doxycycline Hyclate 100 mg 04/11/20 09:00 04/11/20 09:14 Vibramycin PO 100 mg DAILY [facility] Administration Duloxetine HCl 60 mg 04/11/20 09:00 04/11/20 09:14 Cymbalta PO 60 mg 0900 [facility] Administration Ferrous Sulfate 325 mg 04/11/20 09:00 04/11/20 09:14 Feosol PO 325 mg BID [facility] Administration Gabapentin 100 mg 04/11/20 09:00 04/11/20 09:15 Neurontin PO 100 mg 0900 [facility] Administration Hydralazine HCl 25 mg 04/11/20 09:00 04/11/20 14:48 Apresoline PO 25 mg TID [facility] Administration Multivitamins 1 tab 04/11/20 09:00 04/11/20 09:14 Theragran PO 1 tab DAILY [facility] Administration Pantoprazole Sodium 40 mg 04/11/20 09:00 04/11/20 09:13 Protonix PO 40 mg 0900 [facility] Administration Warfarin Sodium 5 mg 04/11/20 17:00 04/11/20 17:09 Coumadin PO 5 mg 1700 [facility] Administration - Exam Neck: negative: supple, symmetric, no JVD, no thyromegaly, no lymphadenopathy, no carotid bruit, JVD Heart: negative: RRR, no murmur, no gallops, no rubs, normal peripheral pulses, irregular, diminshed peripheral pulses, murmur present, II/IV, III/IV Respiratory: negative: CTAB, no wheezes, no rales, no ronchi, normal chest expansion, no tachypnea, normal percussion, rales, rhonchi, tachypneic, wheezes Gastrointestinal: negative: soft, non-tender, non-distended, normal bowel sounds , no palpable masses, no hepatomegaly, no splenomegaly, no bruit, no guarding, no rigidity, tender to palpation, distended, diminished bowl sounds, voluntary guarding Extremities: 2+ LE edema Hosp A/P (1) Hyperkalemia Code(s): E87.5 - HYPERKALEMIA Status: Acute (2) ALEJANDRA (acute kidney injury) Code(s): N17.9 - ACUTE KIDNEY FAILURE, UNSPECIFIED Status: Acute (3) Chronic acquired lymphedema Code(s): I89.0 - LYMPHEDEMA, NOT ELSEWHERE CLASSIFIED Status: Chronic (4) Chronic kidney disease (CKD) Code(s): N18.9 - CHRONIC KIDNEY DISEASE, UNSPECIFIED Status: Chronic Qualifiers: Chronic kidney disease stage: stage 4 (severe) Qualified Code(s): N18.4 - Chronic kidney disease, stage 4 (severe) (5) Dyslipidemia Code(s): E78.5 - HYPERLIPIDEMIA, UNSPECIFIED Status: Chronic (6) Hypertension Code(s): I10 - ESSENTIAL (PRIMARY) HYPERTENSION Status: Chronic Qualifiers: Hypertension type: essential hypertension Qualified Code(s): I10 - Essential (primary) hypertension - Plan will continue to hold her K and entresto. Pt's K and alejandra is improving. will start pt on her low dose entresto. Her dose was recently increased. not sure why she is on two abx.
[2020-04-11] MEDS ORDERED: Sacubitril 49 MG/Valsartan 51 MG TABLET PO SCH (21:00)
[2020-04-11] MEDS: Estradiol 0.01% Vaginal Cream 42.5 gm Tube VAG SCH (21:04)
[2020-04-11] MEDS: Melatonin 3 MG TAB PO SCH (21:09)
[2020-04-11] MEDS: HYDROcodone/Acetaminophen 10/325 mg Tablet PO PRN (21:15)
[2020-04-12] MEDS: Furosemide 20 MG/2 ML VIAL SLOW IVP SCH ×2 (05:25→14:12)
[2020-04-12 05:41] LABS: #Eosinphils 0.2 thou/uL (0.0-0.7); #Monocytes 0.4 thou/uL (0.11-0.59); #Neutrophils 2.6 thou/uL (1.40-6.50); %Basophils 0.4 % (0.0-1.0); %Eosinophils 3.9 % (0.0-10.0); %Lymphocytes 25.2 % (21.0-51.0); %Monocytes 8.4 % (0.0-10.0); %Neutrophils 62.1 % (42.0-75.0); Mean Corpuscular Hemoglobin 31.3 pg (27.0-31.0); Mean Corpuscular Volume 94.6 fL (78.0-98.0); Mean Platelet Volume 9.8 fL (7.4-10.4); Platelet Count 215 thou/uL (130-400); RBC Distribution Width 15.2 % (11.5-14.5); Red Blood Cell (RBC) Count 3.52 mill/uL (4.20-5.40); White Blood Cell (WBC) Count 4.2 thou/uL (4.8-10.8)
[2020-04-12 05:54] LABS: INR-International Normal Ratio 2.1; Prothrombin Time 23.3 sec (12.0-14.7)
[2020-04-12 06:04] LABS: Calc. Creatinine Clearance 38 mL/min (70-130); Calcium 9.7 mg/dL (7.8-10.44); Estimated GFR-MDRD 28; Glucose 98 mg/dL (83-110)
[2020-04-12 06:15] LABS: Anion Gap 17 mmol/L (10-20); BUN (Urea Nitrogen) 108 mg/dL (9.8-20.1); Carbon Dioxide 31 mmol/L (23-31); Chloride 98 mmol/L (98-107); Potassium 3.8 mmol/L (3.5-5.1); Sodium 142 mmol/L (136-145)
[2020-04-12] MEDS: [UNRECOGNIZED DRUG - OTHER] VAG SCH (09:15)
--- NOTE | 2020-04-12 10:18 | PRG ---
DATE OF SERVICE: 04/12/2020 SUBJECTIVE: Ms. Trinidad looks better today. She feels better. OBJECTIVE: VITAL SIGNS: Her blood pressure is 135/63, pulse is 86 and is regular. LUNGS: Clear. CARDIAC: Normal S1, normal S2. ABDOMEN: Soft, nontender. EXTREMITIES: Edema was unchanged. PERTINENT LABORATORY DATA: Creatinine is 1.75, which was improved. Potassium is 3.8. Ferritin level is 199. ASSESSMENT: 1. Congestive heart failure, systolic, diastolic, mixed, improved. 2. Hyperkalemia, resolved. 3. Renal failure, improving. 4. Iron deficiency anemia. Ferritin level is now normal. PLAN: 1. Resume Entresto at lower dose today. 2. Tentatively plan to go home on Friday. Job ID: [id number]
[2020-04-12] MEDS: Magnesium Oxide 400 MG TAB PO SCH (10:29)
[2020-04-12] MEDS: Lactinex Tablet PO SCH ×2 (10:29→20:20)
[2020-04-12] MEDS: Ferrous Sulfate 325 MG TAB PO SCH ×2 (10:29→20:19)
[2020-04-12] MEDS: Multivit, Therapeutic 1 TAB PO SCH (10:29)
[2020-04-12] MEDS: Doxycycline 100 MG CAP PO SCH (10:29)
[2020-04-12] MEDS: Cephalexin 250 MG CAP PO SCH ×2 (10:30→20:19)
[2020-04-12] MEDS: Ascorbic Acid 500 mg Chewable Tablet PO SCH (10:31)
[2020-04-12] MEDS: Cyanocobalamin (Vitamin B-12) 1,000 MCG TAB PO SCH (10:31)
[2020-04-12] MEDS: DULoxetine 60 MG CAP PO SCH (10:31)
[2020-04-12] MEDS: Allopurinol 100 MG TAB PO SCH (10:31)
[2020-04-12] MEDS: hydrALAZINE 25 MG TAB PO SCH ×3 (10:31→20:20)
[2020-04-12] MEDS: Gabapentin 100 MG CAP PO SCH ×2 (10:32→20:20)
[2020-04-12] MEDS: [UNRECOGNIZED DRUG - OTHER] PO SCH (10:33)
[2020-04-12] MEDS ORDERED: traMADol HCl 50 MG TAB PO PRN (10:53)
[2020-04-12] MEDS ORDERED: Cephalexin 250 MG CAP PO SCH (11:15)
[2020-04-12] MEDS ORDERED: Fluticasone Propionate Nasal Spray 16 gm Bottle NASAL SCH (11:15)
[2020-04-12] MEDS: Docusate 100 MG CAP PO SCH ×2 (11:21→20:19)
[2020-04-12] MEDS: Acetaminophen 325 MG TAB PO PRN (11:21)
[2020-04-12] MEDS ORDERED: Potassium Chloride 20 MEQ TAB PO SCH (12:00)
--- NOTE | 2020-04-12 14:08 | PDOC.HOSPP ---
- Subjective Encounter Date: 04/12/20 Encounter Time: 10:00 Subjective: The patient had some mild cramping in her left hip this morning after having a bowel movement in her bed, otherwise no complaints. She denies chest pain or SOB - Objective Vital Signs & Weight: Vital Signs (12 hours) Temp Pulse Pulse Pulse Resp BP BP 04/12/20 11:52 87 95 137/62 130/60 04/12/20 11:38 98.3 F 95 20 04/12/20 09:05 97.2 F L 88 04/12/20 08:00 04/12/20 04:00 80 20 BP BP Pulse Ox 04/12/20 11:52 04/12/20 11:38 130/60 92 L 04/12/20 09:05 175/72 H 92 L 04/12/20 08:00 92 L 04/12/20 04:00 135/63 92 L Weight Admit Weight 220 lb 3.2 oz Weight 219 lb 6.4 oz I&O: 04/11/20 04/12/20 04/13/20 06:59 06:59 06:59 Intake Total 360 2835 Output Total 850 3350 Balance -490 -515 Result Diagrams: 04/12/20 05:00 04/12/20 05:00 Hospitalist ROS - Review of Systems Constitutional: denies: fever, chills - Medication Medications: Active Medications Generic Name Dose Route Start Last Admin Trade Name Freq PRN Reason Stop Dose Admin Acetaminophen 650 mg 04/10/20 22:19 04/12/20 11:21 Tylenol PO 650 mg Q4H PRN Administration Headache/Fever/Mild Pain (1-3) Hydrocodone Bitart/Acetaminophen 1 tab 04/10/20 22:19 04/11/20 21:15 Amity 10/325 PO 1 tab Q4H PRN Administration Moderate Pain (4-6) Acidophilus 1 tab 04/11/20 09:00 04/12/20 10:29 Floranex PO 1 tab BID [facility] Administration Allopurinol 100 mg 04/11/20 09:00 04/12/20 10:31 Zyloprim PO 100 mg 0900 [facility] Administration Ascorbic Acid 1,000 mg 04/11/20 09:00 04/12/20 10:31 Vitamin C PO 1,000 mg 0900 [facility] Administration Cyanocobalamin 1,000 mcg 04/11/20 09:00 04/12/20 10:31 Vitamin B-12 PO 1,000 mcg 0900 [facility] Administration Docusate Sodium 100 mg 04/11/20 09:00 04/12/20 11:21 Colace PO 100 mg BID [facility] Administration Doxycycline Hyclate 100 mg 04/11/20 09:00 04/12/20 10:29 Vibramycin PO 100 mg DAILY [facility] Administration Duloxetine HCl 60 mg 04/11/20 09:00 04/12/20 10:31 Cymbalta PO 60 mg 0900 [facility] Administration Estradiol 2 gm 04/11/20 21:00 04/11/20 21:04 Estrace 0.01% Vaginal Cream VAG 2 gm 2100 [facility] Administration Ferrous Sulfate 325 mg 04/11/20 09:00 04/12/20 10:29 Feosol PO 325 mg BID [facility] Administration Furosemide 20 mg 04/12/20 06:00 04/12/20 05:25 Lasix SLOW IVP 20 mg 0600,1400 [facility] Administration Gabapentin 100 mg 04/11/20 09:00 04/12/20 10:32 Neurontin PO 100 mg 0900 [facility] Administration Gabapentin 200 mg 04/11/20 21:00 04/11/20 21:11 Neurontin PO 200 mg 2100 [facility] Administration Hydralazine HCl 25 mg 04/11/20 09:00 04/12/20 10:31 Apresoline PO 25 mg TID [facility] Administration Magnesium Oxide 400 mg 04/12/20 09:00 04/12/20 10:29 Magnesium Oxide PO 400 mg DAILY [facility] Administration Melatonin 9 mg 04/11/20 21:00 04/11/20 21:09 Melatonin PO 9 mg HS [facility] Administration Multivitamins 1 tab 04/11/20 09:00 04/12/20 10:29 Theragran PO 1 tab DAILY [facility] Administration Pantoprazole Sodium 40 mg 04/11/20 09:00 04/12/20 10:31 Protonix PO 40 mg 0900 [facility] Administration Luvena 0 each 04/12/20 09:00 04/12/20 09:15 VAG 1 each DAILY [facility] Administration Garden Of Life 0 each 04/12/20 09:00 04/12/20 10:33 Probiotic PO 1 each DAILY [facility] Administration Sodium Chloride 10 ml 04/11/20 21:00 04/12/20 11:22 Flush - Normal Saline IVF 10 ml Q12HR [facility] Administration Sodium Chloride 10 ml 04/11/20 12:23 04/12/20 05:26 Flush - Normal Saline IVF 10 ml PRN PRN Administration Saline Flush Tramadol HCl 50 mg 04/12/20 10:53 04/12/20 11:21 Ultram PO 50 mg Q4H PRN Administration Mild Pain (1-3) Warfarin Sodium 5 mg 04/11/20 17:00 04/11/20 17:09 Coumadin PO 5 mg 1700 [facility] Administration - Exam General Appearance: NAD, awake alert Eye: PERRL, anicteric sclera ENT: normocephalic atraumatic, no oropharyngeal lesions Neck: no JVD Heart: RRR, no murmur, no gallops, no rubs Respiratory: CTAB, no wheezes, no rales, no ronchi Gastrointestinal: soft, non-tender, non-distended, normal bowel sounds Extremities: no cyanosis, no clubbing, no edema Skin: normal turgor, no lesions, no rashes Neurological: cranial nerve grossly intact, normal sensation to touch, no focal deficits, no new deficit Hosp A/P - Plan This is an 84 year old female with past medical history of systolic and diastolic CHF who presents with hyperkalemia after recently starting entresto Systolic and diastolic CHF - patient's entresto will be resumed at a lower dose today per cardiology ALEJANDRA - creatinine improved to 1.75, which is near the patient's baseline Hyperkalemia - resolved #Leukopenia #Anemia - WBC 4.2, hemoglobin 11, will monitor Chronic anticoagulation - on warfarin, INR 2.1, continue current home dose Dispo: d/c 2days renu DVT prophylaxiS: warfarin Code statuS: full code
--- NOTE | 2020-04-12 16:25 | PRG ---
DATE OF SERVICE: 04/12/2020 SUBJECTIVE: Patient was seen and examined at bedside and overnight events noted. Patient denies any shortness of breath or chest pain or palpitation. No history of nausea or vomiting or diarrhea or fever or chills or cramps. OBJECTIVE: General: This is a well-built, obese female, in no apparent distress. Vital Signs: Temperature 98.3. Heart rate 86. Respiratory rate . Blood pressure 129/62. HEENT: Atraumatic, normocephalic. Oral mucosa is moist. Neck: Supple. Cardiovascular: S1, S2 heard. Rate and rhythm regular. Respiratory: Clear to auscultation. Gastrointestinal: Abdomen is soft. Musculoskeletal: No tenderness. No edema. Dermatologic: No skin rash. Neurologic: Alert and awake and oriented x3. No focal neurologic deficits. Moving all the extremities. Psychiatric: Mood and affect normal. LABORATORY DATA: Potassium 3.8, BUN is 108, creatinine is 1.7. ASSESSMENT AND PLAN: 1. Acute kidney injury on chronic kidney disease, stage 4. 2. Hyponatremia. 3. Hyperkalemia, better. 4. Anemia. 5. Elevated BNP. 6. Cardiorenal syndrome. 7. Okay with Lasix and we will monitor renal function closely. Job ID: [id number]
[2020-04-12] MEDS: Warfarin Sodium 5 MG TAB PO SCH (18:04)
[2020-04-12] MEDS: Melatonin 3 MG TAB PO SCH (20:20)
[2020-04-12] MEDS: HYDROcodone/Acetaminophen 10/325 mg Tablet PO PRN (20:21)
[2020-04-12] MEDS: Estradiol 0.01% Vaginal Cream 42.5 gm Tube VAG SCH (21:06)
[2020-04-13 04:56] LABS: Prothrombin Time 22.5 sec (12.0-14.7)
[2020-04-13 05:14] LABS: Anion Gap 12 mmol/L (10-20); BUN (Urea Nitrogen) 107 mg/dL (9.8-20.1); Calc. Creatinine Clearance 38 mL/min (70-130); Calcium 10.1 mg/dL (7.8-10.44); Carbon Dioxide 36 mmol/L (23-31); Chloride 99 mmol/L (98-107); Estimated GFR-MDRD 28; Glucose 100 mg/dL (83-110); Potassium 3.7 mmol/L (3.5-5.1); Sodium 143 mmol/L (136-145)
[2020-04-13] MEDS: Furosemide 20 MG/2 ML VIAL SLOW IVP SCH (05:52)
[2020-04-13 08:44] VITALS: BP 133/61; TEMP 97.8
[2020-04-13] MEDS: Lactinex Tablet PO SCH (08:58)
[2020-04-13] MEDS: hydrALAZINE 25 MG TAB PO SCH (08:58)
[2020-04-13] MEDS: DULoxetine 60 MG CAP PO SCH (08:59)
[2020-04-13] MEDS: Cephalexin 250 MG CAP PO SCH (08:59)
[2020-04-13] MEDS: Allopurinol 100 MG TAB PO SCH (08:59)
[2020-04-13] MEDS: Gabapentin 100 MG CAP PO SCH (08:59)
[2020-04-13] MEDS: Doxycycline 100 MG CAP PO SCH (08:59)
[2020-04-13] MEDS: Docusate 100 MG CAP PO SCH (08:59)
[2020-04-13] MEDS: Magnesium Oxide 400 MG TAB PO SCH (09:00)
[2020-04-13] MEDS ORDERED: Fluticasone Propionate Nasal Spray 16 gm Bottle NASAL SCH ×2 (09:00)
[2020-04-13] MEDS: Cyanocobalamin (Vitamin B-12) 1,000 MCG TAB PO SCH (09:00)
[2020-04-13] MEDS: Ferrous Sulfate 325 MG TAB PO SCH (09:00)
[2020-04-13] MEDS: Multivit, Therapeutic 1 TAB PO SCH (09:00)
[2020-04-13] MEDS: Ascorbic Acid 500 mg Chewable Tablet PO SCH (09:00)
[2020-04-13] MEDS: [UNRECOGNIZED DRUG - OTHER] PO SCH (09:01)
[2020-04-13] MEDS: [UNRECOGNIZED DRUG - OTHER] VAG SCH (09:01)
[2020-04-13] MEDS: Acetaminophen 325 MG TAB PO PRN (09:06)
[2020-04-13] MEDS ORDERED: Potassium Chloride 20 MEQ TAB PO SCH (10:00)
--- NOTE | 2020-04-13 10:39 | PRG ---
DATE OF SERVICE: 04/13/2020 SUBJECTIVE: Ms. Trinidad is doing better. She is sitting up. She is awake and alert. OBJECTIVE: VITAL SIGNS: Blood pressure 130/60 and pulse 80 and it is regular. LUNGS: Clear. CARDIAC: Normal S1 and normal S2. She has a very soft systolic murmur. ABDOMEN: Obese and nontender. EXTREMITIES: There is moderate to severe edema as always. LABORATORY DATA: Potassium is 3.7 and creatinine is 1.73. ASSESSMENT: 1. Congestive heart failure systolic/diastolic mixed. 2. Aortic stenosis appears to be moderate, possibly severe, but there is a low gradient. 3. Renal failure improved. GFR is up to 28 now. PLAN: 1. To go home on Entresto twice a day. 2. Torsemide 40 mg twice a day. 3. Potassium 20 mEq a day. 4. Basic metabolic in one week. 5. Continue Coumadin. 6. Continue hydralazine 25 mg three times a day. Long-term prognosis guarded. Job ID: [id number]
[2020-04-13] MEDS ORDERED: traMADol HCl 50 MG TAB PO PRN (12:34)
--- NOTE | 2020-04-13 12:43 | PRG ---
DATE OF SERVICE: 04/13/2020 SUBJECTIVE: Patient was seen and examined at bedside and overnight events noted. Patient denies any shortness of breath or chest pain or palpitation. No history of nausea or vomiting or diarrhea or fever or chills or cramps. OBJECTIVE: GENERAL: This is an elderly female, in no apparent distress. VITAL SIGNS: Temperature 97.8. Pulse 82. Respiratory rate 19. Blood pressure 133/61. HEENT: Atraumatic, normocephalic. Oral mucosa is moist. NECK: Supple. CARDIOVASCULAR: S1, S2 heard. Rate and rhythm regular. RESPIRATORY: Clear to auscultation. GASTROINTESTINAL: Abdomen is soft. MUSCULOSKELETAL: No tenderness. No edema. DERMATOLOGIC: No skin rash. NEUROLOGIC: Alert and awake and oriented x3. No focal neurologic deficits. Moving all the extremities. PSYCHIATRIC: Mood and affect normal. LABORATORY DATA: Potassium 3.7, BUN is 107, creatinine is 1.73. ASSESSMENT AND PLAN: 1. Acute kidney injury on chronic kidney stage 4, stable. 2. Hyponatremia. 3. Hyperkalemia. 4. Elevated BNP. 5. Cardiorenal syndrome. 6. Overall labs are better. Advised family to be careful with protein supplementation and monitor BUN closely. Job ID: [id number]
--- NOTE | 2020-04-13 14:15 | PQF ---
CLINICAL DOCUMENTATION IMPROVEMENT CLARIFICATION FORM: ICD-10 Updated PLEASE DO AN ADDENDUM TO THE PROGRESS NOTE WITH ANY DOCUMENTATION UPDATES OR ADDITIONS AND CARRY THROUGH TO DC SUMMARY. THANK YOU. DATE: 04/13/2020 ATTN: Dr. Moody Please exercise your independent, professional judgment in responding to the clarification form. Clinical indicators are provided on the bottom of this form for your review Please check appropriate box(s): HEART FAILURE: A. ACUITY [ X] Acute [ ] Acute on Chronic [ ] Chronic [ ] Other diagnosis [ ] Unable to determine In addition, please specify: Present on Admission (POA): [X ] Yes [ ] No [ ] Unable to determine For continuity of documentation, please document condition throughout progress notes and discharge summary. Thank You. CLINICAL INDICATORS - SIGNS / SYMPTOMS / LABS / RESULTS AND LOCATION IN EMR ER Record 04/13: DX: Acute CHF exacerbation ALEJANDRA, CKD H&P 04/10: Chest x-ray done shows cardiomegaly. BNP 1192 04/11 (Melo) Congestive heart failure, systolic/diastolic, very difficult to control, getting more difficult to control 04/12 (Melo) Congestive heart failure, systolic, diastolic, mixed, improved. 04/12 (Fransisco) Systolic and diastolic CHF RISKS: H&P 04/10: The pt has hx of CHF with chronic systolic and diastolic dysfunction with prior EF of 35% on recent echo. Hx CKD stage 3 to 4, HTN. pt bed bound with minimal mobility, chronic lymphedema in LE with compression bandage. TREATMENT: ER Record: 04/10: furosemide 40mg IV Order 04/10-04/11: Lasix 40mg IV 0600, 1400 Cardiology Consult 04/11 MAR: Order 04/11: Lasix 20 mg IVP 0600, 1400 Thank you, Ashlee (This form is maintained as a part of the permanent medical record) 2014 [employer]. All Rights Reserved Ashlee Lyons RN, BSN [email or web address]
--- NOTE | 2020-04-14 02:35 | DIS ---
DATE OF ADMISSION: 04/10/2020 DATE OF DISCHARGE: 04/13/2020 DISCHARGE DIAGNOSES: 1. Hyperkalemia and hypermagnesemia 2. Acute kidney injury. 3. Hypertensive urgency 4. Elevated troponin. 5. Acute hypoxic respiratory failure secondary to combined systolic and diastolic congestive heart failure. BRIEF HISTORY OF PRESENT ILLNESS: This is an 84-year-old female, with past medical history of systolic and diastolic CHF, who presented to the emergency room after her PCP did routine labs and found that her potassium was 6.2. Patient states that she had recently started taking two tablets of 49/51 of Entresto. Patient's shortness of breath is at her baseline. When she presented to the emergency room, her vital signs were normal. She was found to have a potassium of 5.9 and a creatinine of 2.36. She was admitted for further workup. HOSPITAL COURSE: #Acute combined systolic and diastolic heart failure #Hyperkalemia #Acute Kidney Injury: The patient was given Kayexalate for her hyperkalemia and she was started on Lasix 40 mg IV bid. She was diuresed for two days. Her creatinine improved to 1.75 which is near her baseline. Her hyperkalemia resolved. She did have a mildly elevated troponin of 0.056. However, the patient did not have any chest pain. On discharge, her Entresto will be decreased to one tablet 24/ twice daily. Her torsemide will be increased to 40 mg b.i.d. Her potassium will be reduced to 20 mEq daily. She will need a repeat BMP in a week and follow up with Dr. Alejo in 4 weeks. The patient's magnesium level was 2.8. This should be repeated as an outpatient. Hypertensive urgency: Patient also had some hypertension with systolic blood pressures in the 170s to 180s. She was started on hydralazine 25 mg t.i.d with improvement in systolic to 130. DISCHARGE PHYSICAL EXAMINATION: VITAL SIGNS: Temperature 97.8, heart rate 82, respiratory rate 19, O2 saturation 92% on room air, and blood pressure 133/61. GENERAL: Patient is alert, awake, and oriented x3. She is obese. CVS: Regular rate and rhythm, with no murmurs, rubs, or gallops. LUNGS: Clear to auscultation bilaterally. ABDOMEN: Positive bowel sounds. Soft, nontender, and nondistended. EXTREMITIES: No edema. PERTINENT LABORATORY DATA: CBC, 04/12: WBC 4.2, hemoglobin 11.0, hematocrit 32.3, and platelet count of 215. BMP, 04/12: Creatinine is 1.75. Rest of BMP unremarkable. Magnesium, 04/11: 2.8. Uric acid: 6.8. Ferritin: 109.59. BNP: 1192.9. UA, 04/10: 500 leukocyte esterase, 7-10 white blood cells. PERTINENT IMAGING: Chest x-ray, 04/10: Cardiomegaly. DISCHARGE CONDITION: Stable. ACTIVITY: As tolerated. DIET: 2 L fluid restriction. Heart healthy diet DISCHARGE MEDICATIONS: New prescriptions: 1. Hydralazine 25 mg p.o. t.i.d. 2. Potassium 20 mEq p.o. daily. Medication changes: 1. Torsemide increased from 40 mg p.o. daily to 40 mg twice daily. 2. Entresto reduced to 24 mg/26 mg one tablet p.o. twice daily. All other home medications were resumed. Please refer to discharge worksheet. DISCHARGE INSTRUCTIONS: Patient is to follow up with her PCP in a week. She should have further workup of anemia. Follow up with Dr. Alejo in 4 weeks. To get a repeat BMP in 1 week and repeat magnesium level. Job ID: [id number] [facility]
[2020-04-14] MEDS ORDERED: Potassium Chloride 20 MEQ TAB PO SCH (08:00)
[2020-04-14] MEDS ORDERED: Torsemide 20 MG TAB PO SCH (09:00)
--- NOTE | 2020-04-16 11:25 | EKG ---
Test Reason : ABN LABS Blood Pressure : / mmHG Vent. Rate : 048 BPM Atrial Rate : 051 BPM P-R Int : 182 ms QRS Dur : 122 ms QT Int : 456 ms P-R-T Axes : 039 -45 084 degrees QTc Int : 407 ms Sinus bradycardia with sinus arrhythmia Left anterior fascicular block Left ventricular hypertrophy with QRS widening and repolarization abnormality Cannot rule out Septal infarct , age undetermined Abnormal ECG No significant change was found Compared to ekg of 03-17-2020 Confirmed by ANDRES PEREA DO ([id number]), assistant editor YSABEL HUGHES ([id number]) on 04/16/2020 11:25:42 AM Referred By: Confirmed By:ANDRES PEREA DO
== END 2020-04-13 13:45 | disposition home health service (06) | DRG 682 ==
LOC: ERS 19:14 → 2NO 21:21
PROVIDERS: ADMIT Internal Medicine; ATTEND Internal Medicine
PROC: 5A09357 Assistance with Respiratory Ventilation, Less than 24 Consecutive Hours, Continuous Positive Airway Pressure (ICD-10-PCS; principal; 2020-04-12)
DX: N17.9 Acute kidney failure, unspecified (principal); J96.01 Acute respiratory failure with hypoxia; I50.41 Acute combined systolic (congestive) and diastolic (congestive) heart failure; I13.0 Hypertensive heart and chronic kidney disease with heart failure and stage 1 through stage 4 chronic kidney disease, or unspecified chronic kidney disease; C85.90 Non-Hodgkin lymphoma, unspecified, unspecified site; N18.4 Chronic kidney disease, stage 4 (severe); E87.5 Hyperkalemia; E83.41 Hypermagnesemia; I16.0 Hypertensive urgency; G47.33 Obstructive sleep apnea (adult) (pediatric); M16.0 Bilateral primary osteoarthritis of hip; I89.0 Lymphedema, not elsewhere classified; I35.0 Nonrheumatic aortic (valve) stenosis; R00.1 Bradycardia, unspecified; F32.9 Major depressive disorder, single episode, unspecified; Z96.651 Presence of right artificial knee joint; F41.9 Anxiety disorder, unspecified; D63.1 Anemia in chronic kidney disease; F03.90 Unspecified dementia, unspecified severity, without behavioral disturbance, psychotic disturbance, mood disturbance, and anxiety; M17.12 Unilateral primary osteoarthritis, left knee; Z98.41 Cataract extraction status, right eye; Z86.711 Personal history of pulmonary embolism; Z79.01 Long term (current) use of anticoagulants; Z86.718 Personal history of other venous thrombosis and embolism; Z90.49 Acquired absence of other specified parts of digestive tract; Z98.42 Cataract extraction status, left eye; Z88.1 Allergy status to other antibiotic agents; Z88.0 Allergy status to penicillin; Z88.2 Allergy status to sulfonamides; Z88.8 Allergy status to other drugs, medicaments and biological substances; Z74.01 Bed confinement status
CPT/HCPCS: 36415; 36556; 71045; 80048; 80053; 81003; 81015; 82553; 82728; 83735; 83880; 84443; 84484; 84550; 85025; 85610; 93005; 93798; 96361; 96374; J1940; S0028

== ENCOUNTER 2021-02-19 20:10 | Inpatient (IN) | payer MEDICARE ==
[2021-02-19 21:22] LABS: Hemoglobin 10.8 g/dL (12.0-16.0); Mean Corpuscular HGB CONC 32.6 g/dL (32.0-36.0); Mean Corpuscular Hemoglobin 31.4 pg (27.0-31.0); Mean Corpuscular Volume 96.2 fL (78.0-98.0); Mean Platelet Volume 8.1 fL (7.4-10.4); Platelet Count 310 thou/uL (130-400); RBC Distribution Width 14.4 % (11.5-14.5); Red Blood Cell (RBC) Count 3.43 mill/uL (4.20-5.40); White Blood Cell (WBC) Count 20.3 thou/uL (4.8-10.8)
[2021-02-19 21:28] LABS: Bacteria/HPF 4+ HPF (None Seen); Bilirubin Negative (Negative); Blood, Urine 3+ (Negative); Clarity Turbid (Clear); Glucose, Urine (Dipstick) Normal (Negative); Ketone, Urine Negative (Negative); Leukocyte 500 Leu/uL (Negative); Nitrite 2+ (Negative); Protein, Urine (Dipstick) 50 mg/dL (Neg-Trace); RBC/HPF 21-50 HPF (0-3); Renal Epithelial 0-3 HPF (None Seen); Specific Gravity, Urine 1.012 (1.002-1.036); Squamous Epithelial 0-3 HPF (0-3); Urobilinogen Normal mg/dL (Less than 2); WBC/HPF Greater than 50 HPF (0-3)
[2021-02-19 21:30] LABS: ALT (SGPT) 9 U/L (8-55); AST (SGOT) 15 U/L (5-34); Albumin 3.1 g/dL (3.4-4.8); Alkaline Phosphatase 96 U/L (40-110); Anion Gap 17 mmol/L (10-20); BUN (Urea Nitrogen) 101 mg/dL (9.8-20.1); Bilirubin, Total 0.3 mg/dL (0.2-1.2); Calc. Creatinine Clearance 0 mL/min (70-130); Calcium 9.9 mg/dL (7.8-10.44); Carbon Dioxide 28 mmol/L (23-31); Chloride 95 mmol/L (98-107); Globulin 3.5 g/dL (2.4-3.5); Glucose 130 mg/dL (83-110); Potassium 4.7 mmol/L (3.5-5.1); Protein, Total 6.6 g/dL (5.8-8.1); Sodium 135 mmol/L (136-145)
[2021-02-19 21:31] LABS: Band 1 % (5-11); Lymphocytes 2 % (21-51); MDiff Complete? YES; Neutrophil 97 % (42-75); Platelet Morphology Comment Appears Adequate
[2021-02-19 21:50] LABS: CKMB 1.1 ng/mL (0-6.6)
[2021-02-19] MEDS ORDERED: Cefepime 2 GM VIAL ONE (22:16)
[2021-02-20] MEDS ORDERED: HYDROcodone/Acetaminophen 5/325 mg Tablet PO PRN (00:01)
[2021-02-20 01:13] LABS: Troponin I 0.141 ng/mL (< 0.028)
[2021-02-20] MEDS ORDERED: Ondansetron PF 4 MG/2 ML Vial IVP PRN ×2 (01:45→02:37)
[2021-02-20] MEDS ORDERED: Ondansetron ODT 4 MG TAB SL PRN (01:45)
[2021-02-20] MEDS ORDERED: Acetaminophen 325 MG TAB PO PRN ×2 (01:45→02:37)
[2021-02-20] MEDS ORDERED: Acetaminophen 650 MG Suppository PR PRN (02:37)
[2021-02-20] MEDS ORDERED: Nystatin Powder 15 GM BOT TOP PRN (02:37)
[2021-02-20] MEDS ORDERED: Ondansetron ODT 4 MG TAB PO PRN (02:37)
[2021-02-20] MEDS ORDERED: hydrALAZINE 25 MG TAB PO PRN (02:37)
[2021-02-20 03:02] LABS: Hemoglobin 9.6 g/dL (12.0-16.0); Mean Corpuscular HGB CONC 31.8 g/dL (32.0-36.0); Mean Corpuscular Hemoglobin 30.5 pg (27.0-31.0); Mean Corpuscular Volume 95.9 fL (78.0-98.0); Mean Platelet Volume 8.3 fL (7.4-10.4); Platelet Count 297 thou/uL (130-400); RBC Distribution Width 14.5 % (11.5-14.5); Red Blood Cell (RBC) Count 3.13 mill/uL (4.20-5.40); White Blood Cell (WBC) Count 19.8 thou/uL (4.8-10.8)
[2021-02-20 03:20] LABS: Band 1 % (5-11); Giant Platelets SLIGHT; Lymphocytes 6 % (21-51); MDiff Complete? YES; Monocytes 1 % (0-10); Neutrophil 92 % (42-75); Platelet Morphology Comment Appears Adequate
[2021-02-20 03:22] LABS: Troponin I 0.196 ng/mL (< 0.028)
[2021-02-20 03:24] LABS: Anion Gap 14 mmol/L (10-20); BUN (Urea Nitrogen) 104 mg/dL (9.8-20.1); Calc. Creatinine Clearance 34 mL/min (70-130); Carbon Dioxide 29 mmol/L (23-31); Chloride 98 mmol/L (98-107); Glucose 124 mg/dL (83-110); Potassium 4.6 mmol/L (3.5-5.1); Sodium 136 mmol/L (136-145)
[2021-02-20 04:53] LABS: INR-International Normal Ratio 2.7
[2021-02-20 05:25] LABS: SARS-CoV-2 PCR by NAA Not Detected (NotDetected)
[2021-02-20] MEDS ORDERED: traMADol HCl 50 MG TAB PO SCH (06:00)
[2021-02-20] MEDS: Ferrous Sulfate 325 MG TAB PO SCH ×2 (08:50→21:40)
[2021-02-20] MEDS: Lactinex Tablet PO SCH ×2 (08:50→10:15)
[2021-02-20] MEDS: Cefepime 2 GM in Sodium Chloride 0.9% 100 ML IVPB SCH (08:50)
[2021-02-20] MEDS: Docusate 100 MG CAP PO SCH ×2 (08:51→21:41)
[2021-02-20] MEDS: Gabapentin 100 MG CAP PO SCH ×2 (08:51→21:41)
[2021-02-20] MEDS: Magnesium Oxide 400 MG TAB PO SCH (08:51)
[2021-02-20] MEDS: Cyanocobalamin (Vitamin B-12) 1,000 MCG TAB PO SCH (08:51)
[2021-02-20] MEDS: Allopurinol 100 MG TAB PO SCH (08:51)
[2021-02-20] MEDS: DULoxetine 60 MG CAP PO SCH (08:51)
[2021-02-20] MEDS: Ascorbic Acid 500 mg Chewable Tablet PO SCH (08:52)
[2021-02-20] MEDS: Multivit, Therapeutic 1 TAB PO SCH (08:52)
[2021-02-20] MEDS ORDERED: Torsemide 20 MG TAB PO SCH (09:00)
[2021-02-20] MEDS ORDERED: Cefepime 2 GM in Sodium Chloride 0.9% 100 ML IVPB SCH (09:00)
[2021-02-20] MEDS ORDERED: Cefepime 1 GM in Sodium Chloride 0.9% 100 ML IVPB SCH (09:00)
[2021-02-20] MEDS ORDERED: Doxycycline 100 MG CAP PO SCH (09:00)
[2021-02-20] MEDS ORDERED: Potassium Chloride 20 MEQ TAB PO SCH (09:00)
[2021-02-20] MEDS: Fluticasone Propionate Nasal Spray 16 gm Bottle NASAL SCH (10:15)
[2021-02-20] MEDS: Zinc Sulfate 220 MG CAP PO SCH (12:35)
[2021-02-20 13:11] LABS: INR-International Normal Ratio 2.4; Prothrombin Time 26.9 sec (12.0-14.7)
[2021-02-20 13:12] LABS: PTT 64.2 sec (22.9-36.1)
[2021-02-20] MEDS: Dextrose 5% in Water 1,000 ML IV SCH (14:43)
[2021-02-20] MEDS ORDERED: VANCOMYCIN 1.75 GM/350 ML BAG 1.75 GM in Premix Bag 1 BAG IVPB SCH (16:15)
[2021-02-20] MEDS: Warfarin Sodium 3 MG TAB PO SCH (16:50)
[2021-02-20] MEDS: Melatonin 3 MG TAB PO SCH (21:40)
[2021-02-20] MEDS: Estradiol 0.01% Vaginal Cream 42.5 gm Tube VAG SCH (21:42)
[2021-02-21 04:07] LABS: #Eosinphils 0.2 thou/uL (0.0-0.7); #Lymphocytes 0.9 thou/uL (1.20-3.40); #Monocytes 0.4 thou/uL (0.11-0.59); #Neutrophils 7.1 thou/uL (1.40-6.50); %Basophils 0.1 % (0.0-1.0); %Eosinophils 2.2 % (0.0-10.0); %Lymphocytes 10.6 % (21.0-51.0); %Monocytes 4.5 % (0.0-10.0); %Neutrophils 82.7 % (42.0-75.0); Hemoglobin 8.8 g/dL (12.0-16.0); Mean Corpuscular HGB CONC 31.5 g/dL (32.0-36.0); Mean Corpuscular Hemoglobin 30.8 pg (27.0-31.0); Mean Corpuscular Volume 97.7 fL (78.0-98.0); Mean Platelet Volume 8.8 fL (7.4-10.4); Platelet Count 255 thou/uL (130-400); RBC Distribution Width 14.4 % (11.5-14.5); Red Blood Cell (RBC) Count 2.85 mill/uL (4.20-5.40); White Blood Cell (WBC) Count 8.6 thou/uL (4.8-10.8)
[2021-02-21 04:08] LABS: INR-International Normal Ratio 2.7; Prothrombin Time 28.9 sec (12.0-14.7)
[2021-02-21 04:24] LABS: Anion Gap 13 mmol/L (10-20); BUN (Urea Nitrogen) 106 mg/dL (9.8-20.1); Calc. Creatinine Clearance 36 mL/min (70-130); Calcium 10.1 mg/dL (7.8-10.44); Carbon Dioxide 28 mmol/L (23-31); Chloride 98 mmol/L (98-107); Glucose 120 mg/dL (83-110); Potassium 3.8 mmol/L (3.5-5.1); Sodium 135 mmol/L (136-145)
[2021-02-21] MEDS: Dextrose 5% in Water 1,000 ML IV SCH (04:40)
[2021-02-21] MEDS: Acetaminophen 325 MG TAB PO PRN ×3 (06:35→21:56)
[2021-02-21] MEDS: Cefepime 2 GM in Sodium Chloride 0.9% 100 ML IVPB SCH (08:04)
[2021-02-21] MEDS: DULoxetine 60 MG CAP PO SCH (08:05)
[2021-02-21] MEDS: Multivit, Therapeutic 1 TAB PO SCH (08:05)
[2021-02-21] MEDS: Docusate 100 MG CAP PO SCH ×2 (08:05→21:50)
[2021-02-21] MEDS: Ascorbic Acid 500 mg Chewable Tablet PO SCH (08:05)
[2021-02-21] MEDS: Gabapentin 100 MG CAP PO SCH ×2 (08:05→21:51)
[2021-02-21] MEDS: Magnesium Oxide 400 MG TAB PO SCH (08:05)
[2021-02-21] MEDS: Allopurinol 100 MG TAB PO SCH (08:06)
[2021-02-21] MEDS: Cyanocobalamin (Vitamin B-12) 1,000 MCG TAB PO SCH (08:06)
[2021-02-21] MEDS: Ferrous Sulfate 325 MG TAB PO SCH ×2 (08:06→21:51)
[2021-02-21] MEDS: Fluticasone Propionate Nasal Spray 16 gm Bottle NASAL SCH (08:08)
[2021-02-21 10:19] LABS: Phosphorus 2.8 mg/dL (2.3-4.7)
[2021-02-21] MEDS ORDERED: Dextrose 5% in Water 1,000 ML IV SCH (11:05)
[2021-02-21] MEDS: Albumin 25% 25 GM/100 ML BOT IVPB SCH ×2 (12:16→18:04)
[2021-02-21] MEDS: Zinc Sulfate 220 MG CAP PO SCH (12:16)
[2021-02-21] MEDS: Torsemide 20 MG TAB PO SCH (12:16)
[2021-02-21 15:31] LABS: Vancomycin, Random 15.8 ug/mL (See Comment)
[2021-02-21] MEDS ORDERED: Vancomycin 1 GM in Premix Bag 1 BAG IVPB SCH ×2 (15:45→16:00)
[2021-02-21] MEDS: cefTRIAXone\\ROCEPHIN 1 GM in Sodium Chloride 0.9% 100 ML IVPB SCH (16:01)
[2021-02-21] MEDS: Warfarin Sodium 3 MG TAB PO SCH ×2 (16:03→16:13)
[2021-02-21] MEDS ORDERED: Nystatin Powder 15 GM BOT TOP PRN (17:42)
[2021-02-21] MEDS: Estradiol 0.01% Vaginal Cream 42.5 gm Tube VAG SCH (21:50)
[2021-02-21] MEDS: Melatonin 3 MG TAB PO SCH (21:52)
[2021-02-22] MEDS: Albumin 25% 25 GM/100 ML BOT IVPB SCH ×2 (00:40→06:01)
[2021-02-22 04:07] LABS: #Eosinphils 0.1 thou/uL (0.0-0.7); #Lymphocytes 0.9 thou/uL (1.20-3.40); #Monocytes 0.4 thou/uL (0.11-0.59); #Neutrophils 3.8 thou/uL (1.40-6.50); %Basophils 0.2 % (0.0-1.0); %Eosinophils 2.7 % (0.0-10.0); %Lymphocytes 16.4 % (21.0-51.0); %Neutrophils 73.7 % (42.0-75.0); Hemoglobin 8.2 g/dL (12.0-16.0); Mean Corpuscular HGB CONC 31.6 g/dL (32.0-36.0); Mean Corpuscular Hemoglobin 30.5 pg (27.0-31.0); Mean Corpuscular Volume 96.6 fL (78.0-98.0); Mean Platelet Volume 8.6 fL (7.4-10.4); Platelet Count 252 thou/uL (130-400); RBC Distribution Width 13.9 % (11.5-14.5); Red Blood Cell (RBC) Count 2.69 mill/uL (4.20-5.40); White Blood Cell (WBC) Count 5.2 thou/uL (4.8-10.8)
[2021-02-22 04:13] LABS: INR-International Normal Ratio 2.4; Prothrombin Time 26.9 sec (12.0-14.7)
[2021-02-22 04:14] LABS: PTT 74.9 sec (22.9-36.1)
[2021-02-22 04:31] LABS: Anion Gap 14 mmol/L (10-20); BUN (Urea Nitrogen) 102 mg/dL (9.8-20.1); Calc. Creatinine Clearance 42 mL/min (70-130); Calcium 10.4 mg/dL (7.8-10.44); Carbon Dioxide 29 mmol/L (23-31); Chloride 99 mmol/L (98-107); Glucose 104 mg/dL (83-110); Iron 26 ug/dL (50-170); Iron Binding Capacity, Total 174 mcg/dL (265-497); Potassium 3.4 mmol/L (3.5-5.1); Sodium 139 mmol/L (136-145)
[2021-02-22] MEDS: Acetaminophen 325 MG TAB PO PRN ×2 (06:01→20:28)
[2021-02-22] MEDS: Ferrous Sulfate 325 MG TAB PO SCH ×2 (09:20→20:26)
[2021-02-22] MEDS: Docusate 100 MG CAP PO SCH ×2 (09:20→20:26)
[2021-02-22] MEDS: Gabapentin 100 MG CAP PO SCH ×2 (09:20→20:27)
[2021-02-22] MEDS: Lactinex Tablet PO SCH (09:20)
[2021-02-22] MEDS: Ascorbic Acid 500 mg Chewable Tablet PO SCH (09:21)
[2021-02-22] MEDS: Multivit, Therapeutic 1 TAB PO SCH (09:21)
[2021-02-22] MEDS: Magnesium Oxide 400 MG TAB PO SCH (09:21)
[2021-02-22] MEDS: Cyanocobalamin (Vitamin B-12) 1,000 MCG TAB PO SCH (09:21)
[2021-02-22] MEDS: DULoxetine 60 MG CAP PO SCH (09:21)
[2021-02-22] MEDS: Allopurinol 100 MG TAB PO SCH (09:21)
[2021-02-22] MEDS: Fluticasone Propionate Nasal Spray 16 gm Bottle NASAL SCH (09:22)
[2021-02-22] MEDS ORDERED: Iron Sucrose Complex 100 MG in Sodium Chloride 0.9% 100 ML IVPB SCH (09:30)
[2021-02-22] MEDS ORDERED: Electrolyte Replacement Protocol 1 EACH FS SCH (09:30)
[2021-02-22] MEDS ORDERED: Potassium Chloride 20 MEQ TAB PO SCH (09:30)
[2021-02-22] MEDS: Torsemide 20 MG TAB PO SCH ×2 (09:31→14:32)
[2021-02-22] MEDS ORDERED: Iron, Sodium Ferric Gluconate 125 MG in Sodium Chloride 0.9% 100 ML IVPB SCH (09:45)
[2021-02-22] MEDS: Zinc Sulfate 220 MG CAP PO SCH (11:50)
[2021-02-22] MEDS: cefTRIAXone\\ROCEPHIN 1 GM in Sodium Chloride 0.9% 100 ML IVPB SCH (16:36)
[2021-02-22] MEDS: Warfarin Sodium 3 MG TAB PO SCH (16:37)
[2021-02-22] MEDS: cloNIDine 0.1 MG TAB PO PRN (16:37)
[2021-02-22] MEDS: Estradiol 0.01% Vaginal Cream 42.5 gm Tube VAG SCH (20:26)
[2021-02-22] MEDS: Melatonin 3 MG TAB PO SCH (20:27)
[2021-02-23 05:27] LABS: #Eosinphils 0.2 thou/uL (0.0-0.7); #Lymphocytes 0.9 thou/uL (1.20-3.40); #Monocytes 0.5 thou/uL (0.11-0.59); #Neutrophils 4.2 thou/uL (1.40-6.50); %Basophils 0.2 % (0.0-1.0); %Eosinophils 3.3 % (0.0-10.0); %Lymphocytes 15.8 % (21.0-51.0); %Monocytes 7.9 % (0.0-10.0); %Neutrophils 72.8 % (42.0-75.0); Hemoglobin 8.9 g/dL (12.0-16.0); Mean Corpuscular HGB CONC 31.6 g/dL (32.0-36.0); Mean Corpuscular Hemoglobin 30.7 pg (27.0-31.0); Mean Platelet Volume 8.4 fL (7.4-10.4); Platelet Count 278 thou/uL (130-400); RBC Distribution Width 13.9 % (11.5-14.5); Red Blood Cell (RBC) Count 2.89 mill/uL (4.20-5.40); White Blood Cell (WBC) Count 5.7 thou/uL (4.8-10.8)
[2021-02-23 05:45] LABS: INR-International Normal Ratio 1.5; PTT 57.5 sec (22.9-36.1); Prothrombin Time 18.7 sec (12.0-14.7)
[2021-02-23 05:57] LABS: Anion Gap 11 mmol/L (10-20); BUN (Urea Nitrogen) 91 mg/dL (9.8-20.1); Calc. Creatinine Clearance 46 mL/min (70-130); Carbon Dioxide 33 mmol/L (23-31); Chloride 102 mmol/L (98-107); Glucose 105 mg/dL (83-110); Potassium 3.7 mmol/L (3.5-5.1); Sodium 142 mmol/L (136-145)
[2021-02-23 08:36] VITALS: BMI 32.3
[2021-02-23] MEDS: Multivit, Therapeutic 1 TAB PO SCH (08:40)
[2021-02-23] MEDS: DULoxetine 60 MG CAP PO SCH (08:40)
[2021-02-23] MEDS: Gabapentin 100 MG CAP PO SCH (08:40)
[2021-02-23] MEDS: Fluticasone Propionate Nasal Spray 16 gm Bottle NASAL SCH (08:40)
[2021-02-23] MEDS: Docusate 100 MG CAP PO SCH (08:43)
[2021-02-23] MEDS: Ascorbic Acid 500 mg Chewable Tablet PO SCH (08:43)
[2021-02-23] MEDS: Acetaminophen 325 MG TAB PO PRN ×2 (08:48→16:07)
[2021-02-23] MEDS: Cyanocobalamin (Vitamin B-12) 1,000 MCG TAB PO SCH (08:48)
[2021-02-23] MEDS: Allopurinol 100 MG TAB PO SCH (08:48)
[2021-02-23] MEDS: Lactinex Tablet PO SCH (08:48)
[2021-02-23] MEDS: Torsemide 20 MG TAB PO SCH (08:48)
[2021-02-23] MEDS: Magnesium Oxide 400 MG TAB PO SCH (08:48)
[2021-02-23] MEDS: Ferrous Sulfate 325 MG TAB PO SCH (08:48)
[2021-02-23] MEDS: Zinc Sulfate 220 MG CAP PO SCH (11:24)
[2021-02-23] MEDS: cloNIDine 0.1 MG TAB PO PRN (11:24)
[2021-02-23] MEDS ORDERED: Iron, Sodium Ferric Gluconate 125 MG in Sodium Chloride 0.9% 100 ML IVPB SCH (12:00)
[2021-02-23] MEDS ORDERED: Torsemide 20 MG TAB PO SCH (14:00)
[2021-02-23] MEDS ORDERED: hydrALAZINE 25 MG TAB PO SCH (15:00)
[2021-02-23] MEDS ORDERED: hydrALAZINE 10 MG TAB PO SCH (15:00)
[2021-02-23 15:06] VITALS: BP 177/77; TEMP 97.8
[2021-02-23] MEDS: cefTRIAXone\\ROCEPHIN 1 GM in Sodium Chloride 0.9% 100 ML IVPB SCH (15:06)
[2021-02-23] MEDS: Warfarin Sodium 3 MG TAB PO SCH (16:07)
== END 2021-02-23 17:50 | disposition home health service (06) | DRG 871 ==
LOC: ERS 20:10 → 2NO 22:29
PROVIDERS: ADMIT Emergency Medicine; ATTEND Hospitalist
DX: A41.81 Sepsis due to Enterococcus (principal); G93.41 Metabolic encephalopathy; N30.00 Acute cystitis without hematuria; N17.9 Acute kidney failure, unspecified; N18.4 Chronic kidney disease, stage 4 (severe); I50.42 Chronic combined systolic (congestive) and diastolic (congestive) heart failure; I13.0 Hypertensive heart and chronic kidney disease with heart failure and stage 1 through stage 4 chronic kidney disease, or unspecified chronic kidney disease; Z20.822 Contact with and (suspected) exposure to COVID-19; A41.89 Other specified sepsis; R65.20 Severe sepsis without septic shock; D53.9 Nutritional anemia, unspecified; F41.9 Anxiety disorder, unspecified; F32.9 Major depressive disorder, single episode, unspecified; I89.0 Lymphedema, not elsewhere classified; E78.5 Hyperlipidemia, unspecified; G47.33 Obstructive sleep apnea (adult) (pediatric); E66.9 Obesity, unspecified; D63.1 Anemia in chronic kidney disease; Z96.651 Presence of right artificial knee joint; M10.9 Gout, unspecified; E86.0 Dehydration; M16.0 Bilateral primary osteoarthritis of hip; I48.91 Unspecified atrial fibrillation; K59.00 Constipation, unspecified; K21.9 Gastro-esophageal reflux disease without esophagitis; E11.42 Type 2 diabetes mellitus with diabetic polyneuropathy; N39.41 Urge incontinence; E11.622 Type 2 diabetes mellitus with other skin ulcer; L97.519 Non-pressure chronic ulcer of other part of right foot with unspecified severity; I35.0 Nonrheumatic aortic (valve) stenosis; E11.22 Type 2 diabetes mellitus with diabetic chronic kidney disease; I95.9 Hypotension, unspecified; E87.6 Hypokalemia; E83.52 Hypercalcemia; Z86.711 Personal history of pulmonary embolism; Z86.718 Personal history of other venous thrombosis and embolism; Z79.01 Long term (current) use of anticoagulants; Z88.0 Allergy status to penicillin; Z88.1 Allergy status to other antibiotic agents; Z88.2 Allergy status to sulfonamides; Z91.048 Other nonmedicinal substance allergy status; Z99.89 Dependence on other enabling machines and devices; Z92.3 Personal history of irradiation; Z92.21 Personal history of antineoplastic chemotherapy; Z90.49 Acquired absence of other specified parts of digestive tract; Z98.890 Other specified postprocedural states; Z79.899 Other long term (current) drug therapy; Z85.72 Personal history of non-Hodgkin lymphomas; Z87.440 Personal history of urinary (tract) infections; Z68.32 Body mass index [BMI] 32.0-32.9, adult
CPT/HCPCS: 36415; 51701; 71045; 80048; 80053; 80202; 81003; 81015; 82274; 82553; 82728; 83540; 83550; 83605; 83880; 83970; 84100; 84484; 85025; 85610; 85730; 87040; 87086; 87149; 87635; 93005; 93306; 96365; J0692; J0696; J2916; J3370; J3490; P9047; U0003; U0005